=== PATIENT | male | born 1945 | race Caucasian/White ===

== ENCOUNTER 2019-11-08 15:44 | Observation (INO) | payer MEDICARE, BC ==
[~2019-11-08] VITALS: Ht 185.4 cm; Wt 116.1 kg
[~2019-11-08 15:44] MED LIST: BUPROPION XL150 MG PO; CLOBETASOL PROP15 GM TOP; ESCITALOPRAM OX20 MG PO; GABAPENTIN300 MG PO; LEVOTHYROXINE175 MCG PO; LISINOPRIL10 MG PO; PRIMIDONE50 MG PO; TAMSULOSIN HCL0.4 MG PO; THEOPHYLLINE400 MG PO; VITAMIN D21250 MCG PO
--- OUTSIDE RECORDS SUMMARY | 2019-11-08 15:46 | XMS ---
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 Latisha VISIT COUNT (12 MO.) Pop Thibodeaux TOTAL 1 NOTE: Visits indicate total known visits. ED/UCC VISIT TRACKING (12 MO.) 11/08/2019 15:44 JOEY Valentin TYPE: Emergency COMPLAINT: - SOB INPATIENT VISIT TRACKING (12 MO.) 09/05/2019 09:03 [place] [facility] TYPE: Surgical Services DIAGNOSES: - Presence of unspecified artificial hip joint - Unilateral primary osteoarthritis, right hip [id number]
[2019-11-08] MEDS ORDERED: CYCLOBENZAPRINE10 MG PO (16:24)
[2019-11-08] MEDS ORDERED: THEOPHYLLINE400 MG PO (16:29)
[2019-11-08] MEDS ORDERED: BUPRENORPHINE HC8 MG SL (16:31)
[2019-11-08] MEDS ORDERED: L-CARNITINE500 M1 PO (16:31)
--- NOTE | 2019-11-08 17:13 | EKG ---
[facility] [address] [facility] [place] [address] Signed Sinus bradycardia with 1st degree AV block Right bundle branch block Left anterior fascicular block Bifascicular block Abnormal ECG No previous ECGs available Confirmed by JIMMY ANNE MD ([id number]) on 11/08/2019 5:13:12 PM Electronically Signed By: JIMMY ANNE MD 11/08/19 1713 PATIENT NAME: DEVIN FISCHER Electrocardiogram DATE OF : 49 PHYSICIAN: JIMMY ANNE MD REPORT #: [id number] REPORT IS CONFIDENTIAL AND NOT TO BE RELEASED WITHOUT AUTHORIZATION
[2019-11-09] MEDS ORDERED: FERREX 150150 MG PO (11:16)
[2019-11-09] MEDS ORDERED: POTASSIUM CHLO10 ME1 PO (11:20)
[2019-11-09] MEDS ORDERED: FUROSEMIDE20 MG PO (11:22)
[2019-11-09] MEDS ORDERED: LEVOTHYROXINE200 MCG PO (11:23)
[2019-11-09] MEDS ORDERED: PRIMIDONE50 MG PO (11:52)
[2019-11-09] MEDS ORDERED: FINASTERIDE5 MG PO (11:53)
[2019-11-09] MEDS ORDERED: XARELTO15 MG PO (12:06)
[2019-11-09] MEDS ORDERED: XARELTO20 MG PO (12:08)
== END 2019-11-09 12:45 | disposition home or self-care (01) ==
LOC: ED 15:44 → MS 15:45
PROVIDERS: ADMIT Internal Medicine
DX: I26.99 Other pulmonary embolism without acute cor pulmonale (principal); R91.8 Other nonspecific abnormal finding of lung field; I10 Essential (primary) hypertension; N40.0 Benign prostatic hyperplasia without lower urinary tract symptoms; G47.33 Obstructive sleep apnea (adult) (pediatric); E03.9 Hypothyroidism, unspecified; F32.9 Major depressive disorder, single episode, unspecified; G25.0 Essential tremor; Z79.899 Other long term (current) drug therapy
CPT/HCPCS: 71045; 71260; 80053; 83880; 84484; 85025; 85379; 93005; 93010; 94762; 96372; 99285-25; G0378; J1650; Q9967

== ENCOUNTER 2020-06-17 15:30 | Emergency (ER) | payer MEDICARE, BC ==
[~2020-06-17] VITALS: Ht 185.4 cm; Wt 124.7 kg
--- OUTSIDE RECORDS SUMMARY | ~2020-06-17 | XMS | Encounter Summary ---
Demographics + + + | Address | [address] | | | [place] [address] | + + + | Home Phone | | + + + | Preferred Language | Unknown | + + + | Marital Status | | + + + | Islam Affiliation | 1013 | + + + | Race | White | + + + | Ethnic Group | Not or | + + + Author + + + | Author | [facility] | | | and [place] | + + + | Organization | [facility] | | | and [place] | + + + | Address | Unknown | + + + | Phone | Unavailable | + + + Support + + + + + | Name | Relationship | Address | Phone | + + + + + | Aby Fleming | ECON | [address] | | | | | [place] | | | | | [address] | | + + + + + | Mason Fleming | ECON | Unknown | | + + + + + Care Team Providers + +------+ + | Care Chaser Helper Name | Role | Phone | + +------+ + | Michael Grijalva | PCP | | | MD | | | + +------+ + Reason for Referral Diagnostic/Screening (Routine) +--------+--------+ + + + + | Status | Reason | Specialty | Diagnoses / | Referred By | Referred To | | | | | Procedures | Contact | Contact | +--------+--------+ + + + + | Closed | | Radiology | Diagnoses | | [facility] | | | | | Ischial | [place], | [address] | | | | | bursitis of | Peter T, MD | [place], | | | | | right side | [address] | [place] | | | | | Ischial | [place] | [address] | | | | | bursitis of | [place], [place] | Phone: | | | | | left side | [address] | [phone] | | | | | Procedures | Phone: | Fax: | | | | | [place] Asp | [phone] | [phone] | | | | | and/or Inj | Fax: | | | | | | Major Joint | [phone] | | | | | | Left | | | +--------+--------+ + + + + Reason for Visit + + + | Reason | Comments | + + + | Buttocks Pain | Left greater than right | + + + Encounter Details +--------+---------+ + + + | Date | Type | Department | Care Team | Description | +--------+---------+ + + + | 11/09/ | Office | [facility] | Peter Haney | Ischial bursitis of | | 2017 | Visit | PHYSIATRY [address] | T, MD [address] | left side (Primary | | | | [address] | [place] | Dx); Ischial | | | | [place] | [address] | bursitis of right | | | | [address] | | side; Lumbar | | | | [phone] | | radiculopathy; S/P | | | | | | lumbar fusion; | | | | | | Chronic bilateral | | | | | | low back pain with | | | | | | bilateral sciatica | +--------+---------+ + + + Social History + +-------+ +--------+ + | Tobacco Use | Types | Packs/Day | Years | Date | | | | | Used | | + +-------+ +--------+ + | Former Smoker | | 1 | 16 | Quit: 08/30/1980 | + +-------+ +--------+ + + +---+---+---+ | Smokeless Tobacco: | | | | | Never Used | | | | + +---+---+---+ + + +---------+ + | Alcohol Use | Drinks/Week | oz/Week | Comments | + + +---------+ + | Yes | 0 Standard drinks | 0.0 | Rarely/Socially | | | or equivalent | | | + + +---------+ + + + + | Sex Assigned at | Date Recorded | | | | + + + | Not on file | | + + + documented as of this encounter Last Filed Vital Signs + + + + + | Vital Sign | Reading | Time Taken | Comments | + + + + + | Blood Pressure | 121/52 | 11/09/2017 10:28 AM | | | | | PDT | | + + + + + | Pulse | 63 | 11/09/2017 10:28 AM | | | | | PDT | | + + + + + | Temperature | - | - | | + + + + + | Respiratory Rate | 20 | 11/09/2017 10:28 AM | | | | | PDT | | + + + + + | Oxygen Saturation | - | - | | + + + + + | Inhaled Oxygen | - | - | | | Concentration | | | | + + + + + | Weight | 119.7 kg (264 lb) | 11/09/2017 10:28 AM | | | | | PDT | | + + + + + | Height | 181.6 cm (5' 11.5") | 11/09/2017 10:28 AM | | | | | PDT | | + + + + + | Body Mass Index | 36.31 | 11/09/2017 10:28 AM | | | | | PDT | | + + + + + documented in this encounter Patient Instructions Patient Instructions Becki Corado RN - 11/09/2017 10:00 AM Jean Carlos attend the inject ion appointment with Peter Haney MD. If his office has not contacted you within one we ek, to schedule the injection, please contact my clinic. Your injection will be performed a [facility]. Please take note of whether your pain is s ignificantly reduced in the hours immediately following the injection. Follow-up at the hospital thirty minutes before your scheduled procedure to allow for time to check in. You may eat and drink as usual on the day of the procedure. If you are scheduled for an epidural injection do not take any blood thinning medications f or at least 5-7 days prior to your procedure unless you have been instructed by another phys ician not to discontinue blood thinning medications. If you are having a procedure other than an epidural injection (i.e. facet injection, media l branch block, SI joint injection or other joint injection) it is not absolutely necessary to discontinue blood thinning medications but doing so will decrease the risk of bruising or bleeding. If you have had a prior stroke, DVT or PE or if you are taking blood thinning medication be cause you have atrial fibrillation, a prosthetic cardiac valve replacement or heart stenting do not stop taking your blood thinning medications unless you have permission from your car diologist or primary care provider. All other medications should be taken as usual on the day of the procedure. Common blood thinning medications include: Aspirin (a baby aspirin is o.k.) Ibuprofen (Advil or Motrin) Naproxen (Aleve) Nabumetone (Relafen) Clopidogrel (Plavix) Dipyridamole/ASA (Aggrenox) Warfarin (Coumadin) Dabigatran (Pradaxa) Rivaroxaban (Xarelto) There are many others. If you have questions about your medications and whether or not you should stop any medications please contact our office. If you are having an epidural injection or if you take any medication for relaxation/sedati on on the day of the procedure you must provide a pile driver operator to take you home. For all procedur es it is recommended that someone else drive you home. documented in this encounter Progress Notes Peter Haney MD - 11/09/2017 10:00 AM PDT CHIEF COMPLAINT: Chief Complaint Patient presents with Buttocks Pain Left greater than right HISTORY OF PRESENT ILLNESS: Piter Fleming is a 72 y.o. male being seen today in follow-up for complaints of low b ack pain. At the time of his SI joint injection (10/06/17) we discussed his pain and it brooks nded as though the pain was consistent with ischial tuberosity bursitis. He has done some r eading on the topic and he is convinced that is what he is dealing with. He does report th at the majority of his pian is in the region of the "sitting bones" with prolonged sitting, left greater than right. He has been seen for other back pain issues in the past. He has a chronic history of back issues that eventually resulted in a lumbar fusion. Previously he was seen by my PA and sac roiliac joint injections were recommended. The bilateral sacroiliac joint steroid injections were completed 10/06/17 for the treatment of chronic pain with sacroiliitis. He indicates t hat the treatment was 80% effective for pain in that region. Today, Mr. Fleming rates his pain as 3 on a scale of 0-10. He indicates that the pain is de pendent on sitting and movement. He describes the pain as an aching pain. His symptoms wors en with prolonged sitting. His symptoms improve with change of position. The patient does describe numbness of the bilateral anterior thighs and feet. He does rep ort weakness of the bilateral lower extremities, worse to the right leg (he indicates right drop foot). He reports weakness is a chronic symptoms, post neurosurgical intervention. He does not have bowel and bladder dysfunction. He does not have saddle anesthesia. Treatments for these complaints have included physical therapy and medication including hyd rocodone/apap. Patient's medications, allergies, past medical, surgical, social and family histories were reviewed and updated as appropriate. CURRENT MEDICATIONS: Current Outpatient Prescriptions Medication Sig Dispense Refill BETAMETHASONE Take by mouth as needed. DHEA 50 MG TABS Take 100 mg by mouth. Ephedrine-Guaifenesin (PRIMATENE ASTHMA) 12.5-200 MG TABS 2 to 3 tablets daily ergocalciferol (VITAMIN D-2) 50,000 units capsule Take 50,000 Units by mouth Once a wee k. escitalopram (LEXAPRO) 20 mg tablet Take 20 mg by mouth Daily. finasteride (PROSCAR) 5 mg tablet Take 5 mg by mouth Daily. fluocinonide (LIDEX) 0.05 % ointment two times a day furosemide (LASIX) 20 mg tablet gabapentin (NEURONTIN) 300 mg capsule TAKE 2 TABLETS BY MOUTH NIGHTLY FOR NEUROPATHIC P AIN 180 capsule 4 HYDROcodone-acetaminophen (NORCO) 10-325 mg per tablet Take 1-2 tablets by mouth every 4 hours as needed for Pain. 120 tablet 0 iron polysaccharides (NU-IRON) 150 MG capsule Take 150 mg by mouth Daily. LevOCARNitine L-Tartrate (L-CARNITINE) 500 MG CAPS Take 500 mg by mouth Daily. levothyroxine (LEVOTHROID) 200 mcg tablet Take 175 mcg by mouth Daily. lisinopril (PRINIVIL, ZESTRIL) 10 mg tablet Take 10 mg by mouth Daily. multivitamin (THERAGRAN) per tablet Take 1 tablet by mouth daily potassium chloride (KLOR-CON) 10 mEq CR tablet primidone (MYSOLINE) 50 mg tablet Take 4 by mouth daily at bedtime for 5 days then incr ease to 5 by mouth daily at bedtime for tremors tamsulosin (FLOMAX) 0.4 mg CAPS Take 0.4 mg by mouth Daily. theophylline (UNIPHYL) 400 MG 24 hr tablet UNABLE TO FIND Med Name: 8-20cm vitamin B-12 (CYANOCOBALAMIN) 1000 MCG tablet Take 1,000 mcg by mouth Daily. No current facility-administered medications for this visit. ALLERGIES: Allergies Allergen Reactions Nsaids Other (See Comments) Unable to take due to Gastric Bypass Surgery Latex Rash Elastic in his sock's cause a rash Oxycodone Rash REVIEW OF SYSTEMS: GENERALLY: No fever, chills, weight changes. EYES: No vision changes. EARS, NOSE, AND THROAT: No hearing loss or tinnitis,no difficulty swallowing, no hoarseness . NEUROMUSCULAR: Please see the review of systems discussed above in the history of present illness. In addition, the patient has no dizziness, no blackouts, no headaches. CARDIOVASCULAR: No chest pain, no palpitations PULMONARY: No shortness of breath, + cough. GASTROINTESTINAL: No nausea, vomiting or diarrhea GENITOURINARY: No dysuria or hematuria SKIN: No rashes. HEMATOLOGIC/LYMPHATIC: No abnormal bleeding PHYSICAL EXAMINATION: Vitals: 11/09/17 1028 BP: 121/52 Pulse: 63 Resp: 20 PainSc: 3 Body mass index is 36.31 kg/m. GENERAL: The patient is well developed and well nourished. He does not appear uncomfortabl e when seated. HEENT: HEAD/FACE: EYES: Normocephalic and atraumatic. There are no areas of recent trauma. Normal sclerae without icterus. SKIN Limited skin exam shows no significant rashes or lesions. CHEST: The patient is in no acute respiratory distress with unlabored respirations. HEART: Moderately severe pitting edema to bilateral lower extremities. ABDOMEN: The patient is obese. NEUROLOGIC: The patient is awake, alert, and oriented to time, place, person. He follows simple and complex commands. His speech is fluent. He comprehends speech well. He has no apparent deficits with short or intermediate memory. He has appropriate fund of knowledge Cranial nerves 2-12 appear grossly intact. Sensory exam - Mildly decreased sensation to light touch to bilateral lower extremities. De creased strength noted in right L5 dermatome distribution. MOTOR EXAM: (5 IS NORMAL) * Indicates pain limited MUSCLE/ MOVEMENT: RIGHT LEFT Hip Flexion 5 5 Hip Extension 5 5 Knee Flexion 5 5 Knee Extension 5 5 Extensor Hallicus Longus 5 5 Ankle Dorsiflexion 2 5 Plantarflexion 5 5 REFLEX: RIGHT LEFT PATELLAR Absent Absent ACHILLES Absent Absent MUSCULOSKELETAL Decreased ROM to bilateral hips with internal and external rotation but wi th no discomfort noted to the spine groin or buttocks. Weakness noted with heel walking; can not keep toes up on the right with heel walking. Weakness with toe walking noted to right; unable to keep heel off the floor. Able to bend forwards approximately 75 degrees Tenderness to right sacral sulcus. Localizes maximum pain and tenderness to the ischial tuberosity bilaterally, greater to lef t compared to the right. ASSESSMENT: 1. Ischial bursitis of left side 2. Ischial bursitis of right side 3. Lumbar radiculopathy 4. S/P lumbar fusion 5. Chronic bilateral low back pain with bilateral sciatica PLAN: 1. Today Piter Fleming presents with bilateral Ischial tuberosity bursitis. He indic ated having discomfort with sitting, he reports his left side accounts for approximately 60% of his pain. He reports having pain radiating to the posterior legs to the mid hamstring re gion but no lower. Piter Fleming returns to the clinic for evaluation prior to possibl e ischial tuberosity bursa injection procedure today. I did feel that would be appropriate and that will be scheduled. 2. It was noted that he has bilateral hamstring tightness; we dicussed that this may be a contributing factor to his development of bilateral Ischial tuberosity bursitis. I encourag ed a home stretching regimen. 3. Today we dicussed that there is a limit of how many steroid injections an individual ma y receive safely per year. We dicussed the potential for the development of osteoporosis wit h frequent steroid use. We dicussed potential risks including elevated blood sugars and oste oporosis. We dicussed the possible concern of he development of avascular necrosis of the hi ps associated with steroid use. We dicussed that this is very rare but is still a potential risk. Overall Mr. Fleming is considered at low risk for development of these potential side effects, but we will plan to make an effort to reduce yearly steroid injection to the least possible. 4. Today we dicussed other conservative interventions that he may implement in an effort to reduce the development of Ischial tuberosity bursitis. This includes seating posture and u se of cushions. 5. He continues to have chronic weakness, worse to the right lower extremity. He indicates this has been chronic but not progressive since neurosurgical intervention. His other issue s including the prior lumbar fusion and low back pain were not addressed in detail today. I, Dr. Peter Haney, personally performed the services described in this documentatio n, as scribed by Becki Corado RN in my presence, and it is both accurate and complete. ELECTRONICALLY EDITED AND SIGNED BY: Peter Haney MD documented in this encounter Plan of Treatment Not on filedocumented as of this encounter Results [place] Asp and/or Inj Major Joint Left (11/09/2017 12:47 PM PDT) + + | Specimen | + + | | + + + + + | Narrative | Performed At | + + + | 11/09/2017 | [facility] | | Ischial Tuberosity Bursa Injection Diagnosis: Ischial Tuberosity | | | Bursitis Piter Fleming presents to the fluoroscopy suite for | | | fluoroscopically guided bilateral ischial tuberosity bursa steroid | | | injections as part of conservative management for chronic pain and | | | ischial tuberosity bursitis. After informed consent was obtained the | | | patient laid in the prone position on the fluoroscopy table. The | | | ischial tuberosity on the left was identified under fluoroscopic | | | guidance. The area was prepped and draped in sterile fashion. A 25 | | | gauge 1-1/2 inch needle was inserted into this region and | | | approximately 3 mL of buffered 1% lidocaine was infused. The needle | | | was then inserted down to the ischial tuberosity bursa under | | | fluoroscopic guidance. Confirmation into the appropriate location was | | | obtained with infusion of approximately 1 mL of Omnipaque contrast | | | which showed flow within the bursa. Then a combination of 1 mL 1% | | | lidocaine and 1 mL of 40 mg per milliliter Kenalog was infused. The | | | entire procedure was then repeated on the right. The patient | | | tolerated the procedures well without complications. Pre- and post | | | procedure blood pressures were stable. The patient was given verbal as | | | well as written followup instructions. Prior to the start of the | | | procedure the following were performed and verified including correct | | | patient identity, correct site/side marked and visible, agreement on | | | the procedure to be done, correct patient positioning and an accurate | | | procedure consent form. Any safety precautions based on clinical | | | history and/or medication use have been addressed. I personally | | | performed the procedure above. Estimated blood loss: | | | MinimalComplications: NoneFindings: As expectedAnesthesia: Local 1% | | | Lidocaine | | |based on clinical history and/or medication use have been addressed. | | | | | |I personally performed the procedure above. | | | | | |Estimated blood loss: Minimal | | |Complications: None | | |Findings: As expected | | |Anesthesia: Local 1% Lidocaine | | | | | + + + + +---------+ + + | Performing | Address | City/State/Zipcode | Phone Number | | Organization | | | | + +---------+ + + | [facility] | | | | + +---------+ + + documented in this encounter Visit Diagnoses + + | Diagnosis | + + | Ischial bursitis of left side - Primary | + + | Ischial bursitis of right side | + + | Lumbar radiculopathy Thoracic or lumbosacral neuritis or radiculitis, unspecified | + + | S/P lumbar fusion Arthrodesis status | + + | Chronic bilateral low back pain with bilateral sciatica | + + documented in this encounter
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
--- OUTSIDE RECORDS SUMMARY | ~2020-06-17 | XMS | Encounter Summary ---
Demographics + + + | Address | [address] | | | [place] [address] | + + + | Home Phone | | + + + | Preferred Language | Unknown | + + + | Marital Status | | + + + | Pentecostalism Affiliation | 1013 | + + + | Race | White | + + + | Ethnic Group | Not or | + + + Author + + + | Author | [facility] | | | and [place] | + + + | Organization | [facility] | | | and [place] | + + + | Address | Unknown | + + + | Phone | Unavailable | + + + Support + + + + + | Name | Relationship | Address | Phone | + + + + + | Aby Fleming | ECON | [address] | | | | | [place] | | | | | [address] | | + + + + + | Mason Fleming | ECON | Unknown | | + + + + + Care Team Providers + +------+ + | Care Medical Assistant Name | Role | Phone | + +------+ + | Michael Grijalva | PCP | | | MD | | | + +------+ + Reason for Visit Service/Procedure (Routine) +--------+--------+ + + + + | Status | Reason | Specialty | Diagnoses / | Referred By | Referred To | | | | | Procedures | Contact | Contact | +--------+--------+ + + + + | Closed | | Radiology | Diagnoses | | [facility] | | | | | Thoracic or | [place], | [address] | | | | | lumbosacral | Peter Cunha MD | [place], | | | | | neuritis or | [address] | [place] | | | | | | [place] | [address] | | | | | radiculitis, | [place], [place] | Phone: | | | | | unspecified | [phone] | [phone] | | | | | Procedures | Phone: | Fax: | | | | | DC INJECT | [phone] | [phone] | | | | | ANES/STEROID | Fax: | | | | | | FORAMEN | [phone] | | | | | | LUMBAR/SACRA | | | | | | | L W IMG | | | | | | | GUIDE ,1 | | | | | | | LEVEL DC | | | | | | | TRIAMCINOLON | | | | | | | E ACET INJ | | | | | | | NOS, 10 MG | | | | | | | Bilateral | | | | | | | L3-L4 | | | | | | | TFESI-APPT | | | | | | | 1/27 | | | +--------+--------+ + + + + Encounter Details +--------+ + + + + | Date | Type | Department | Care Team | Description | +--------+ + + + + | 10/02/ | Hospital | [facility] | Lyn, | Bilateral lumbar | | 2014 | Encounter | [facility]RAY [address] | MICHELLE Masterson [address] | radiculopathy; | | | | [address] [place] | [facility] [address] | Spinal stenosis of | | | | [place] [address] | [place] [address] | lumbar - worst at | | | | [phone] | [phone] | the L2-L3 and L3-L4 | | | | | | levels. This would | | | | | [place], [place] | be classified as | | | | | [place] | severe.; | | | | | | Degenerative disc | | | | | | disease lumbar spine | | | | | | - he has | | | | | | degenerative changes | | | | | | at every level from | | | | | | L2 to S1.; | | | | | | Scoliosis | +--------+ + + + + Social History + +-------+ [...] + + +---------+ + | Yes | | | Rarely/Socially | + + +---------+ + + + + | Sex Assigned at | Date Recorded | | | | + + + | Not on file | | + + + documented as of this encounter Last Filed Vital Signs + +---------+ + + | Vital Sign | Reading | Time Taken | Comments | + +---------+ + + | Blood Pressure | 154/73 | 10/02/2014 1:11 PM | | | | | PST | | + +---------+ + + | Pulse | 43 | 10/02/2014 1:11 PM | | | | | PST | | + +---------+ + + | Temperature | - | - | | + +---------+ + + | Respiratory Rate | - | - | | + +---------+ + + | Oxygen Saturation | - | - | | + +---------+ + + | Inhaled Oxygen | - | - | | | Concentration | | | | + +---------+ + + | Weight | - | - | | + +---------+ + + | Height | - | - | | + +---------+ + + | Body Mass Index | - | - | | + +---------+ + + documented in this encounter Medications at Time of Discharge + + + +---------+ + + | Medication | Sig | Dispensed | Refills | Start | End Date | | | | | | Date | | + + + +---------+ + + | finasteride | Take 5 mg by mouth | | 0 | | | | (PROSCAR) 5 mg | Daily. | | | | | | tablet | | | | | | + + + +---------+ + + | fluocinonide | two times a day | | 0 | 05/13/20 | | | (LIDEX) 0.05 % | | | | 12 | | | ointment | | | | | | + + + +---------+ + + | iron | Take 150 mg by mouth | | 0 | 05/13/20 | | | polysaccharides | Daily. | | | 12 | | | (NU-IRON) 150 MG | | | | | | | capsule | | | | | | + + + +---------+ + + | multivitamin | Take 1 tablet by | | 0 | 05/13/20 | | | (THERAGRAN) per | mouth daily | | | 12 | | | tablet | | | | | | + + + +---------+ + + | primidone | Take 4 by mouth | | 0 | 09/24/19 | | | (MYSOLINE) 50 mg | daily at bedtime for | | | 11 | | | tablet | 5 days then | | | | | | | increase to 5 by | | | | | | | mouth daily at | | | | | | | bedtime for tremors | | | | | + + + +---------+ + + | tamsulosin | Take 0.4 mg by mouth | | 0 | 05/13/20 | | | (FLOMAX) 0.4 mg CAPS | Daily. | | | 12 | | + + + +---------+ + + | vitamin B-12 | Take 1,000 mcg by | | 0 | 05/13/20 | | | (CYANOCOBALAMIN) | mouth Daily. | | | 12 | | | 1000 MCG tablet | | | | | | + + + +---------+ + + | acetaminophen | Take 500 mg by mouth | | 0 | | | | (TYLENOL) 500 mg | nightly. | | | | 6 | | tablet | | | | | | + + + +---------+ + + | BETAMETHASONE | Take by mouth as | | 0 | | | | | needed. | | | | 8 | + + + +---------+ + + | Calcium | TABS; Take 1 tablet | | 0 | 06/25/20 | | | Carbonate-Vitamin D | by mouth twice daily | | | 10 | 5 | | (CALTRATE 600+D PO) | | | | | | + + + +---------+ + + | Cholecalciferol | 50,000 Units Once a | | 0 | 05/13/20 | | | (D3-50) 59084 UNITS | week. | | | 12 | 5 | | CAPS | | | | | | + + + +---------+ + + | citalopram | Take 40 mg by mouth | | 0 | 05/13/20 | | | (CELEXA) 40 mg | Daily. | | | 12 | 6 | | tablet | | | | | | + + + +---------+ + + | | 2 to 3 tablets daily | | 0 | 05/13/20 | | | Ephedrine-Guaifenesi | | | | 12 | 8 | | n (PRIMATENE ASTHMA) | | | | | | | 12.5-200 MG TABS | | | | | | + + + +---------+ + + | gabapentin | Take 2 tablets by | 60 | 2 | 06/25/20 | | | (NEURONTIN) 300 mg | mouth at night for | capsule | | 14 | 5 | | capsuleIndications: | neuropathic pain, | | | | | | Neuropathic pain | lumbar | | | | | | | radiculopathy,and | | | | | | | back pain. | | | | | + + + +---------+ + + | Glucosamine HCl | | | 0 | 05/13/20 | | | (GLUCOSAMINE MAXIMUM | | | | 12 | 5 | | STRENGTH) 1500 MG | | | | | | | TABS | | | | | | + + + +---------+ + + | | as needed | | 0 | 05/13/20 | | | HYDROcodone-acetamin | | | | 12 | 5 | | ophen (NORCO) 10-325 | | | | | | | mg per tablet | | | | | | + + + +---------+ + + | LevOCARNitine | Take 500 mg by mouth | | 0 | 05/13/20 | | | L-Tartrate | Daily. | | | 12 | 0 | | (L-CARNITINE) 500 MG | | | | | | | CAPS | | | | | | + + + +---------+ + + | levothyroxine | Take 175 mcg by | | 0 | 05/13/20 | | | (LEVOTHROID) 200 mcg | mouth Daily. | | | 12 | 0 | | tablet | | | | | | + + + +---------+ + + | liothyronine | two daily | | 0 | 05/13/20 | | | (CYTOMEL) 50 MCG | | | | 12 | 5 | | tablet | | | | | | + + + +---------+ + + | Nutritional | Take 100 mg by mouth | | 0 | | | | Supplements (DHEA | 2 times daily. | | | | 5 | | PO) | | | | | | + + + +---------+ + + | propranolol | Take 40 mg by mouth | | 0 | 09/11/19 | | | (INDERAL) 40 mg | Daily. | | | 11 | 6 | | tablet | | | | | | + + + +---------+ + + | sildenafil | Take 100 mg by mouth | | 0 | 05/13/20 | | | (VIAGRA) 100 MG | nightly as needed. | | | 12 | 5 | | tablet | | | | | | + + + +---------+ + + | theophylline | Take 400 mg by mouth | | 0 | 05/13/20 | | | (UNIPHYL) 400 MG 24 | Daily. | | | 12 | 5 | | hr tablet | | | | | | + + + +---------+ + + | topiramate | 1/2 tablet at at | | 0 | 09/11/19 | | | (TOPAMAX) 25 mg | bedtime for 3 | | | 11 | 5 | | tablet | nights, then build | | | | | | | up per 's written | | | | | | | schedule to 2 | | | | | | | tablets at bedtime | | | | | | | for tremor | | | | | + + + +---------+ + + documented as of this encounter Plan of Treatment Not on filedocumented as of this encounter Procedures + +--------+ + + + | Procedure Name | Priori | Date/Time | Associated Diagnosis | Comments | | | ty | | | | + +--------+ + + + | FL EPIDURAL STEROID | Routin | 10/02/2014 | Bilateral lumbar | Results for this | | INJECTION LUMBAR | e | 1:47 PM | radiculopathy | procedure are in the | | TRANSFORAMINAL | | PST | Spinal stenosis of | results section. | | | | | lumbar - worst at | | | | | | the L2-L3 and L3-L4 | | | | | | levels. This would | | | | | | be classified as | | | | | | severe. | | | | | | Degenerative disc | | | | | | disease lumbar spine | | | | | | - he has | | | | | | degenerative changes | | | | | | at every level from | | | | | | L2 to S1. | | | | | | Scoliosis | | + +--------+ + + + documented in this encounter Results FL SHIRLEY Lumbar Transforaminal (10/02/2014 1:47 PM PST) + + | Specimen | + + | | + + + + + | Narrative | Performed At | + + + | 10/02/2014 Bilateral Transforaminal Epidural Steroid Injections | [facility] | | Diagnosis: Lumbar radiculopathy ICD-9 Code 724.4 [address] | [facility] | | Lonnie presents to the fluoroscopy suite for fluoroscopically-guided [facility] | | bilateral L3-L4 transforaminal epidural steroid injections as part | - IMAGING | | of conservative management for chronic pain with lumbar | | | radiculopathy and degenerative disk disease. After informed consent | | | was obtained, the patient lay in the prone position on the | | | fluoroscopy table. The areas were identified under fluoroscopic | | | guidance. The areas were prepped and draped in sterile fashion. A | | | 25-gauge, 1.5-inch needle was inserted into each region and | | | approximately 3 mL of buffered 1% lidocaine was infused. Then, a | | | 22-gauge spinal needle was inserted into the posterior superior | | | transforaminal space bilaterally and advanced into the epidural | | | space under fluoroscopic guidance. Confirmation into the epidural | | | space was obtained with infusion of approximately 1 mL of Omnipaque | | | contrast which showed epidural flow as well as nerve sheath flow. | | | Then, a combination of 2 mL of 1% lidocaine and 2 mL of 6 mg/mL | | | Celestone was infused, divided between the two sides. The patient | | | tolerated the procedure well without complications. Pre- and | | | post-procedure blood pressures were stable. The patient was given | | | verbal as well as written follow-up instructions. Prior to the | | | start of the procedure, the following were performed and/or | | | verified, including correct patient identity, correct site/side marked | | | and visible, agreement on the procedure to be done, correct patient | | | positioning and an accurate procedure consent form. Any safety | | | precautions based on clinical history and/or medication use have | | | been addressed. I personally performed the procedure above. | | | Estimated blood loss: Minimal Complications: None Findings: As | | | expected Anesthesia: Local 1% Lidocaine | | + + + + + | Procedure Note | + + | Peter Haney MD - 10/02/2014 4:39 PM PST 10/02/2014Bilateral Transforaminal | | Epidural Steroid InjectionsDiagnosis: Lumbar radiculopathyICD-9 Code 724.4Gerald Damir | | Lonnie presents to the fluoroscopy suite for fluoroscopically-guided bilateral L3-L4 | | transforaminal epidural steroid injections as part of conservative management for | | chronic pain with lumbar radiculopathy and degenerative disk disease. After informed | | consent was obtained, the patient lay in the prone position on the fluoroscopy table. | | The areas were identified under fluoroscopic guidance. The areas were prepped and draped | | in sterile fashion. A 25-gauge, 1.5-inch needle was inserted into each region and | | approximately 3 mL of buffered 1% lidocaine was infused. Then, a 22-gauge spinal needle | | was inserted into the posterior superior transforaminal space bilaterally and advanced | | into the epidural space under fluoroscopic guidance. Confirmation into the epidural | | space was obtained with infusion of approximately 1 mL of Omnipaque contrast which | | showed epidural flow as well as nerve sheath flow. Then, a combination of 2 mL of 1% | | lidocaine and 2 mL of 6 mg/mL Celestone was infused, divided between the two sides. The | | patient tolerated the procedure well without complications. Pre- and post-procedure | | blood pressures were stable. The patient was given verbal as well as written follow-up | | instructions. Prior to the start of the procedure, the following were performed and/or | | verified, including correct patient identity, correct site/side marked and visible, | | agreement on the procedure to be done, correct patient positioning and an accurate | | procedure consent form. Any safety precautions based on clinical history and/or | | medication use have been addressed. I personally performed the procedure above.Estimated | | blood loss: MinimalComplications: NoneFindings: As expectedAnesthesia: Local 1% | | Lidocaine | + + + + + + + | Performing | Address | City/State/Zipcode | Phone Number | | Organization | | | | + + + + + | [facility] | [address] | [place], [place] | [phone] | | [facility] | | [address] | | | - IMAGING | | | | + + + + + documented in this encounter Visit Diagnoses + + | Diagnosis | + + | Bilateral lumbar radiculopathy | + + | Spinal stenosis of lumbar - worst at the L2-L3 and L3-L4 levels. This would be | | classified as severe. Spinal stenosis, lumbar region, without neurogenic claudication | + + | Degenerative disc disease lumbar spine - he has degenerative changes at every level | | from L2 to S1. Degeneration of lumbar or lumbosacral intervertebral disc | + + | Scoliosis Scoliosis (and kyphoscoliosis), idiopathic | + + documented in this encounter Administered Medications + +--------+ +------+------+------+ | Medication Order | MAR | Action | Dose | Rate | Site | | | Action | Date | | | | + +--------+ +------+------+------+ | betamethasone (CELESTONE | Given | 10/02/19 | 9 mg | | | | SOLUSPAN) injection 9 mg 9 mg, | | 15 1:48 | | | | | Other, EVERY 24 HOURS INTERVAL, | | PM PST | | | | | First dose on Wed10/02/14 at 1400, | | | | | | | For 2 doses, Shake well. Not for | | | | | | | IV use., Radiology | | | | | | + +--------+ +------+------+------+ +---+---+ | | | +---+---+ + +-------+ +-------+---+---+ | iohexol (OMNIPAQUE 300) 300 | Given | 10/02/19 | 2 mLs | | | | mg/mL injection 2 mL 2 mL, | | 15 1:40 | | | | | Other, ONCE PRN, Other, Starting | | PM PST | | | | | 10/02/14 at 1334, For 1 dose, | | | | | | | Radiology | | | | | | + +-------+ +-------+---+---+ +---+---+ | | | +---+---+ + +-------+ +-------+---+ + | lidocaine 1% injection 5 mL 5 | Given | 10/02/19 | 5 mLs | | Other | | mL, Intradermal, ONCE, 10/02/14 | | 15 1:35 | | | (Comment | | at 1400, For 1 dose, Radiology | | PM PST | | | ) | + +-------+ +-------+---+ + +---+---+ | | | +---+---+ documented in this encounter"
--- OUTSIDE RECORDS SUMMARY | ~2020-06-17 | XMS | Encounter Summary ---
Demographics + + + | Address | [address] | | | [place] [address] | + + + | Home Phone | | + + + | Preferred Language | Unknown | + + + | Marital Status | | + + + | Taoist Affiliation | 1013 | + + + | Race | White | + + + | Ethnic Group | Not or | + + + Author + + + | Author | [facility] | | | and [place] | + + + | Organization | [facility] | | | [...] [place] | | | | | [address] | | + + + + + | Mason Fleming | ECON | Unknown | | + + + + + Care Team Providers + +------+ + | Care Splicing Machine Operator Name | Role | Phone | + +------+ + | Michael Grijalva | PCP | | | MD | | | + +------+ + Reason for Visit + + + | Reason | Comments | + + + | Initial Assessment | | + + + Encounter Details +--------+---------+ + + + | Date | Type | Department | Care Team | Description | +--------+---------+ + + + | 08/03/ | Office | [facility] | Cecil Mosquera, PT | Primary | | 2019 | Visit | ORTHOPEDIC SURGERY | [address] [facility] | 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 | [place] [address]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 (Primary | | | | [place], [place] | [phone] | Dx) | | | | [address] | | | | | | [phone] | | | +--------+---------+ + + + [...] + + documented as of this encounter Progress Notes Cecil Mosquera, PT - 08/03/2019 1:45 PM PST Physical Therapy Plan of Care Date: 08/03/2019 Patient Name: Piter Fleming Date of : 1945 Encounter Diagnoses Code Name Primary? M16.11 Primary osteoarthritis of right hip Yes Date of Onset: 08/03/2019 Start of Care Date: 08/03/2019 Requested # of Visits: 1 visits 1x/week for three months Certification From: 08/03/2019 Certification To: 11/01/2019 Clinical Impression: Patient presents to physical therapy for their prehabilitation total joint replacement evaluation. Piter Fleming is scheduled for a right total hip arthrop lasty on 09/05/2018. The predicted patient discharge disposition is home with home health. Morenita vuongtg has identified his Aby ([phone]) as their support charter coach driver. Patient has complete d the physical therapy specific prehabilitation education and was prescribed an individualiz ed home exercise program. Patient was educated on pain management techniques and how to best prepare their home for recovery. Functional outcome measure TUG with a pre operative score of 14.45sec. Patient reported outcome measure HOOS Jr. with a pre operative score of 46.64%. PROMIS Global - 10 pre operative Physical Health Raw Score: 50% (T-score: 34.9 ), Global - 10 Mental Health Raw Score: 40% (T-score: 33.8 ). Patient's snf goal is to continue exercising at the [facility] fitness facility with his per alex monkey trainer Corinna. Patient agrees with this pre-operative plan for post-operative return to function. Goals: Patient Reported Outcome Goals Patient Reported Outcome Goals: PSFS Patient Specific Functional Scale Goal 1: Patient agrees with home with home health as the predicted post-operative discharge destination. Patient Specific Functional Scale Goal 1 Status: 10 Patient Specific Functional Scale Goal 2: Patient demonstrates independence with their pre- habilitation exercise program. Patient Specific Functional Scale Goal 2 Status: 10 Patient Specific Functional Scale Goal 3: Patient and physical therapist established long t erm goal for post-surgery. Patient Specific Functional Scale Goal 3 Status: 10 Treatment Plan/Interventions PT [id number] - Therapeutic [id number] - Neuromuscular [id number] - Gait T [id number] - Self Care/Home [id number] - Manual [id number] - Therapeutic Activities Electronically signed by: Cecil Mosquera PT, 08/03/2019 3:26 PM Patient Name: Piter Fleming/: 1945/ Cecil Lehman, PT - 1 10/04/2018 1:45 PM PST [facility] ORTHOPEDIC SURGERY [address] [place] [id number] Physical Therapy Prehabilitation Orthopedic Evaluation Date: 08/03/2019 Patient Information Patient Name: Piter Fleming Date of : 1945 Age: 74 y.o. Assessment Patient presents to physical therapy for their prehabilitation total joint replacement eval uation. Piter Fleming is scheduled for a right total hip arthroplasty on 09/05/2018. The predicted patient discharge disposition is home with home health. Patient has identified ky s Aby [phone]) as their support charter coach driver. Patient has completed the physical therapy specific prehabilitation education and was prescribed an individualized home exercise progr am. Patient was educated on pain management techniques and how to best prepare their home fo r recovery. Functional outcome measure TUG with a pre operative score of 14.45sec. Patient reported outcome measure HOOS Jr. with a pre operative score of 46.64%. PROMIS Global - 10 pre operative Physical Health Raw Score: 50% (T-score: 34.9 ), Global - 10 Mental Health Raw Score: 40% (T-score: 33.8 ). Patient's snf goal is to continue exercising at the [facility] fitness facility with his per alex monkey trainer Corinna. Patient agrees with this pre-operative plan for post-operative return to function. History No problems updated. Social History Socioeconomic History Marital status: Spouse name: Not on file Number of children: 2 Years of education: 14+ Highest education level: Not on file Occupational History Comment: Retired Tobacco Use Smoking status: Former Smoker Packs/day: 1.00 Years: 16.00 Pack years: 16.00 Last attempt to quit: 08/30/1980 Years since quittin.9 Smokeless tobacco: Never Used Substance and Sexual Activity Alcohol use: Yes Alcohol/week: 0.0 standard drinks Comment: Rarely/Socially Drug use: No Sexual activity: Yes Comment: Rarely Encounter Diagnoses Code Name Primary? M16.11 Primary osteoarthritis of right hip Yes Date of Onset: 08/03/2019 Referring Provider: Michael Grijalva MD No history on file. Past Medical History: Diagnosis Date Asthma, intrinsic Benign localized hyperplasia of prostate with urinary obstruction Chronic pain syndrome Cystitis, subacute Depression Dermatitis due to drugs and medicines taken internally Dermatitis, eczematoid ERRONEOUS ENCOUNTER--DISREGARD 05/07/2015 Essential hypertension, benign Essential tremor Flank pain Folliculitis Hematuria High cholesterol Hx of gastric bypass Ischial bursitis of left side 02/16/2018 Kidney stones Lumbar stenosis Major depressive disorder, recurrent, in partial remission (HCC) Nephrolithiasis Neuropathy Hands and Feet Nontraumatic rupture of bicep tendon, right Right rupture rotator cuff complete Osteoarthrosis, localized, primary, knee, right Postgastrectomy syndrome Dumping syndrome Primary hypothyroidism Primary osteoarthritis of right hip 02/16/2018 Sciatica Sleep apnea Spinal stenosis, lumbar Thyroid disease Past Surgical History: Procedure Laterality Date APPENDECTOMY 1958 CHOLECYSTECTOMY 06/2006 COLONOSCOPY 06/2011 no polyps GALLBLADDER SURGERY 2006 GASTRIC BYPASS SURGERY morbid obesity LUMBAR SPINE SURGERY Left 08/10/2016 Procedure: L2-3, L3-4, L4-5 Lateral Anterior Interbody Fusion, L5-S1 Transforaminal Lumbar Interbody Fusion, L3-4 Decompression; Surgeon: Joshua Jorge MD; Location: [facility] MAIN OR ROTATOR CUFF REPAIR Right 06/2015 TONSILLECTOMY AND ADENOIDECTOMY 1951 TOTAL KNEE ARTHROPLASTY Bilateral /-2010 WRIST SURGERY 2011 Hardware removal Family History Problem Relation Age of Onset Other (see comment) Father 80 kidney failure High blood pressure Father No known problems Paternal Grandfather No known problems Paternal Grandmother No known problems Maternal Grandfather No known problems Maternal Grandmother Arthritis Other Diabetes Other Gout Other Heart defect Other Developmental History Allergies Allergen Reactions Nsaids Other (See Comments) Unable to take due to Gastric Bypass Surgery Latex Rash Elastic in his sock's cause a rash Pain Assessment: Pain Scale Used: NUMERIC Pain Rating Pre Assessment: 4 Location: right hip Subjective: history of successful bilateral TKA. Living environment: Lives with: spouse / significant other Type of home: house Stairs to enter: 3 stairs to enter and railing on left side. Stairs in home: no stairs. will cover on ground level. Bathroom set up: walk in shower. He was encouraged to install grab bars at the toilet and b ath, he agreed. Available assistance at discharge: Name: Aby, for indefinite Durable medical equipment: Currently uses: none Has access to: front wheeled walker, cane, bath bench and adoption worker Have you fallen in the last year? no Have you recently had physical therapy? no Objective: AROM: right Hip approximately 110 degrees hip flexion, internal rotation 0 degrees open en d feel Gait: right Antalgic with compensated trendelenburg Goals: Patient Reported Outcome Goals Patient Reported Outcome Goals: PSFS Patient Specific Functional Scale Goal 1: Patient agrees with home with home health as the predicted post-operative discharge destination. Patient Specific Functional Scale Goal 1 Status: 10 Patient Specific Functional Scale Goal 2: Patient demonstrates independence with their pre- habilitation exercise program. Patient Specific Functional Scale Goal 2 Status: 10 Patient Specific Functional Scale Goal 3: Patient and physical therapist established long t erm goal for post-surgery. Patient Specific Functional Scale Goal 3 Status: 10 Plan Date of Onset: 08/03/2019 Start of Care Date: 08/03/2019 Requested # of Visits: 1 visits 1x/week for three months Certification From: 08/03/2019 Certification To: 11/01/2019 Treatment Plan/Interventions PT [id number] - Therapeutic [id number] - Neuromuscular [id number] - Gait T [id number] - Self Care/Home [id number] - Manual [id number] - Therapeutic Activities Patient and/or family has indicated understanding of treatment needs and actively participa [place] in the creation of this plan for care. Today's Treatment Start Time: 1345 Stop time: 1425 Duration: 40 minutes Timed Treatment Codes: 15 minutes # of PT Visits: 1 Objective: Patient education: Patient completed the physical therapy specific prehabilitation educatio n. Patient was educated on pain science for post-operative pain management and how to best p repare their home for recovery. Patient was instructed in the below individualized home exer cise program and was able to safely return demonstration for each exercise. Access Code: [email or web address] URL: [email or web address] Date: 08/03/2019 Prepared by: Cecil Mosquera Exercises Recumbent Bike - 10 reps - 2 sets - 1x daily - 4x weekly Walk - 10 reps - 2 sets - 1x daily - 4x weekly Sit to Stand without Arm Support - 10 reps - 2 sets - 1x daily - 4x weekly Mini Squat with Counter Support - 10 reps - 1 sets - 4x daily - 4x weekly Seated Heel Toe Raises - 15 reps - 2 sets - 4x daily - 4x weekly Seated Kicks - 15 reps - 2 sets - 4x daily - 4x weekly Patient Education Walking with a Standard Walker - Weight Bearing as Tolerated Total Hip Replacement Handout Next Visit: d/c Electronically signed by: Cecil Mosquera, PT, 08/03/2019 3:22 PM Patient Name: Piter Fleming/: 1945/ y signed by Cecil Mosquera PT at 08/03/2019 3:29 PM PSTdocumented in this encounter Plan of Treatment Not on filedocumented as of this encounter Visit Diagnoses + + | Diagnosis | + + | Primary osteoarthritis of right hip - Primary Primary localized osteoarthrosis, | | pelvic region and thigh | + + documented in this encounter"
--- OUTSIDE RECORDS SUMMARY | ~2020-06-17 | XMS | Encounter Summary ---
Demographics + + + | Address | [address] | | | [place] [address] | + + + | Home Phone | | + + + | Preferred Language | Unknown | + + + | Marital Status | | + + + | Jainism Affiliation | 1013 | + + + | Race | White | + + + | Ethnic Group | Not or | + + + Author + + + | Author | [facility] | | | and [place] | + + + | Organization | [facility] | | | [...] [place] | | | | | [address] | | + + + + + | Mason Fleming | ECON | Unknown | | + + + + + Care Team Providers + +------+ + | Care Medical Engineer Name | Role | Phone | + +------+ + | Michael Grijalva | PCP | | | MD | | | + +------+ + Encounter Details +--------+ + + + + | Date | Type | Department | Care Team | Description | +--------+ + + + + | 12/20/ | Orders Only | [facility] | Joshua Jorge MD | Lumbar radiculopathy | | 2013 | | NEUROSURGERY [address] | [address] | (Primary Dx); | | | | [address] | [place] [address] | Spinal stenosis of | | | | [place], [place] | [phone] | lumbar - worst at | | | | [phone] | | the L2-L3 and L3-L4 | | | | [phone] | | levels. 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 | | | | | | - he has | | | | | | degenerative changes | | | | | | at every level from | | | | | | L2 to S1.; BACK | | | | | | PAIN, LUMBAR; | | | | | | OSTEOARTHRITIS, | | | | | | LUMBOSACRAL SPINE | +--------+ + + + + Social History + +-------+ +--------+------+ | Tobacco Use | Types | Packs/Day | Years | Date | | | | | Used | | + +-------+ +--------+------+ | Never Smoker | | | | | + +-------+ +--------+------+ + + +---------+ + | Alcohol Use | Drinks/Week | oz/Week | Comments | + + +---------+ + | Not Asked | | | | + + +---------+ + + + + | Sex Assigned at | Date Recorded | | | | + + + | Not on file | | + + + documented as of this encounter Plan of Treatment Not on filedocumented as of this encounter Results XR Spine Survey AP and Lateral (03/09/2014 11:26 AM PDT) + + | Specimen | + + | | + + + + + | Narrative | Performed At | + + + | SCOLIOSIS STUDY: 03/09/2014 11:26 AM CLINICAL HISTORY: BACK PAIN | [facility] | | COMPARISON: None FINDINGS: Multiple AP and lateral spot views | LAB | | of the spine from skull base to pelvis in neutral and lateral flexion | | | positions. Because of software malfunction these are not | | | contiguously merged to a single image. Also with the technique | | | utilized fine bony detail is obscured. This results in limited | | | assessment. A mild dextroscoliosis is present centered on L1. | | | Measured from the inferior endplate of T10 to the superior endplate | | | of L4 this measures approximately 12 degrees. It does not appear to | | | significantly change in right or left lateral flexion. What appears | | | to be a compensatory curve in the thoracic region cannot be assessed | | | because of film alignment. IMPRESSION - Limited, technically | | | unsatisfactory scoliosis study. Mild dextroscoliosis centered on L1 | | | does not appear to change significantly in right or left lateral | | | flexion. Dictated and Signed by: Luciano Jaffe MD | | | Electronically signed: 03/09/2014 3:43 PM | | + + + + + | Procedure Note | + + | Benito, Rad Results In - 03/09/2014 3:46 PM PDT SCOLIOSIS STUDY: 03/09/2014 11:26 AM | | | | CLINICAL HISTORY: BACK PAIN | | | | COMPARISON: None | | | | FINDINGS: Multiple AP and lateral spot views of the spine from skull base to | | pelvis in neutral and lateral flexion positions. Because of software malfunction | | these are not contiguously merged to a single image. Also with the technique | | utilized fine bony detail is obscured. This results in limited assessment. | | | | A mild dextroscoliosis is present centered on L1. Measured from the inferior | | endplate of T10 to the superior endplate of L4 this measures approximately 12 | | degrees. It does not appear to significantly change in right or left lateral | | flexion. What appears to be a compensatory curve in the thoracic region cannot | | be assessed because of film alignment. | | | | IMPRESSION - Limited, technically unsatisfactory scoliosis study. Mild | | dextroscoliosis centered on L1 does not appear to change significantly in right | | or left lateral flexion. | | | | Dictated and Signed by: Luciano Jaffe MD | | Electronically signed: 03/09/2014 3:43 PM | + + + +---------+ + + | Performing | Address | City/State/Zipcode | Phone Number | | Organization | | | | + +---------+ + + | [facility] | | | [phone] | + +---------+ + + | [facility] | | | [phone] | + +---------+ + + XR Lumbar Spine 4 + Vw (03/09/2014 11:08 AM PDT) + + | Specimen | + + | | + + + + + | Narrative | Performed At | + + + | LUMBAR SPINE: 03/09/2014 10:58 AM CLINICAL HISTORY: Back pain | MISCELANIOUS | | COMPARISON: 03/05/2010 FINDINGS: AP, lateral and lateral flexion | LAB | | extension views. 5 lumbar segments. Mild dextroscoliosis centered on | | | L1. Vertebral body heights are normal. Alignment is normal in the | | | sagittal plane and does not change in flexion or extension. | | | Severe disc space narrowing at each level. Large endplate osteophytes | | | particularly at the upper levels. Facet joints are sclerotic | | | throughout. Appearances are unchanged from prior. IMPRESSION - | | | Stable multilevel degenerative spondylitic changes with extensive | | | osteophyte formation. Mild dextroscoliosis, unchanged. No radiographic | | | demonstration of instability. Dictated and Signed by: Luciano | | | MD Ld Electronically signed: 03/09/2014 3:49 PM | | + + + + + | Procedure Note | + + | Benito, Rad Results In - 03/09/2014 3:52 PM PDT LUMBAR SPINE: 03/09/2014 10:58 AM | | | | CLINICAL HISTORY: Back pain | | | | COMPARISON: 03/05/2010 | | | | FINDINGS: AP, lateral and lateral flexion extension views. 5 lumbar segments. | | Mild dextroscoliosis centered on L1. Vertebral body heights are normal. | | Alignment is normal in the sagittal plane and does not change in flexion or | | extension. | | | | Severe disc space narrowing at each level. Large endplate osteophytes | | particularly at the upper levels. Facet joints are sclerotic throughout. | | Appearances are unchanged from prior. | | | | IMPRESSION - Stable multilevel degenerative spondylitic changes with extensive | | osteophyte formation. Mild dextroscoliosis, unchanged. No radiographic | | demonstration of instability. | | | | Dictated and Signed by: Luciano Jaffe MD | | Electronically signed: 03/09/2014 3:49 PM | + + + +---------+ + + | Performing | Address | City/State/Zipcode | Phone Number | | Organization | | | | + +---------+ + + | [facility] | | | [phone] | + +---------+ + + | [facility] | | | [phone] | + +---------+ + + documented in this encounter Visit Diagnoses + + | Diagnosis | + + | Lumbar radiculopathy - Primary Thoracic or lumbosacral neuritis or radiculitis, | | unspecified | + + | Spinal stenosis of [...] lumbosacral intervertebral disc | + + | BACK PAIN, LUMBAR Lumbago | + + | OSTEOARTHRITIS, LUMBOSACRAL SPINE Lumbosacral spondylosis without myelopathy | + + documented in this encounter"
--- OUTSIDE RECORDS SUMMARY | ~2020-06-17 | XMS | Encounter Summary ---
Demographics + + + | Address | [address] | | | [place] [address] | + + + | Home Phone | | + + + | Preferred Language | Unknown | + + + | Marital Status | | + + + | Mandaen Affiliation | 1013 | + + + | Race | White | + + + | Ethnic Group | Not or | + + + Author + + + | Author | [facility] | | | and [place] | + + + | Organization | [facility] | | | [...] [place] | | | | | [address] | | + + + + + | Mason Fleming | ECON | Unknown | | + + + + + Care Team Providers + +------+ + | Care Director Quality Systems Name | Role | Phone | + +------+ + | Michael Grijalva | PCP | | | MD | | | + +------+ + Reason for Visit + +--------+ + | Reason | Onset | Comments | | | Date | | + +--------+ + | Imaging Only | 11/05/ | | | | 2017 | | + +--------+ + | Hip Pain | 11/05/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 pain | | | 2017 | | + +--------+ + | Coordination Of Care | 11/05/ | Physiatry | | | 2017 | | + +--------+ + Encounter Details +--------+ + + + + | Date | Type | Department | Care Team | Description | +--------+ + + + + | 11/05/ | Telephone | [facility] [place] | Joshua Jorge MD | Imaging Only; Hip | | 2017 | | NEUROSURGERY [address] | Pain (right hip | | | | [address] | [place] [address] | pain); Coordination | | | | LA[place] | [phone] | Of Care (Physiatry) | | | | [address] | | | | | | [phone] | | | +--------+ + + + + Social [...] + + documented as of this encounter Miscellaneous Notes Telephone Encounter - Jun Stout PA-C - 11/09/2017 9:53 AM PDTThank Otto morales signed by Jun Stout PA-C at 11/09/2017 9:54 AM PDTTelephone Encounter - Peter Mccormack MD - 11/08/2017 10:56 AM PDTI am happy to address this at his visit [facility]. elephone Delilah Gama RN - 11/05/2017 1:37 PM PSTs/p 08/10/2016 L2-3, L3-4, L4-5 Lateral Anterior Interbody Fusion, L5-S1 Transforaminal Lumbar Interbody Fusion, L3-4 Decompression Last seen 07/06/2017 ([place]) No pending appointments in [facility] Patient had an injection 10/06/2017 and has f/u appointment (physiatry) 11/09/2017 Patient c/o "one spot that is really uncomfortable just to right of lowest area of surgical site in alignment with right hip." Painful area close to site of SI injection Onset just prior to 10/06/2017 injection; more intense about 2-3 weeks ago Only change in activities during this time was shoveling snow; denies injury, fall, or othe r changes Has tried rest, working with geophysical manager as recommended by PT, and takes hydrocodone-a cetaminophen 10-325 mg, 1 tablet/ dose, up to 6 tablets/ day (usually 4 tablets/ day) Has not been taking muscle relaxant; has cyclobenzaprine 10 mg tablets on hand Has not tried ice, heat, massage, stretching Advised patient that message will be sent to providers to advise further regarding request for XR to check fusion. Discussed that it is unlikely that this is an issue that will show up on XR and encouraged conservative soothing measures to decrease inflammation and provide temporary relief of discomfort (ice, heat, gentle massage, gentle stretching, walking freque ntly) Also suggested he try 1/2 tab cyclobenzaprine to see if this affects his symptoms. P atient is unable to take NSAIDs. Advised patient if we do not call him back before physiatry appointment (11/09) to discuss t his further with Dr. Knox and he may be able to evaluate this complaint and advise if XR would be recommended. Patient was agreeable to this plan. Please advise if XR may be ordered per patient request elephone Encounter - Tom Schneider - 11/05/2017 12:42 PM PSTPatient would like to know if we could order an xra y for him when he comes to [facility] Wednesday to see Dr Knox. He wants to make sure nothing is wrong from the surgery documented in this encounter Plan of Treatment Not on filedocumented as of this encounter Visit Diagnoses Not on filedocumented in this encounter
--- OUTSIDE RECORDS SUMMARY | ~2020-06-17 | XMS | Encounter Summary ---
Demographics + + + | Address | [address] | | | [place] [address] | + + + | Home Phone | | + + + | Preferred Language | Unknown | + + + | Marital Status | | + + + | Quaker Affiliation | CAT | + + + | Race | Unknown | + + + | Ethnic Group | Other Race | + + + Author + + + | Author | [facility] | + + + | Organization | [facility] | + + + | Address | Unknown | + + + | Phone | Unavailable | + + + Support +---------+ +---------+ + | Name | Relationship | Address | Phone | +---------+ +---------+ + | Unk Unk | ECON | Unknown | Unavailable | +---------+ +---------+ + Care Team Providers + +------+ + | Care River Rat Name | Role | Phone | + +------+ + | Unknown | PCP | Unavailable | + +------+ + Encounter Details +--------+ + + + + | Date | Type | Department | Care Team | Description | +--------+ + + + + | 11/09/ | Documentati | Dermatology | Unknown . | | | 2017 | on | Medical at [facility] | | | | | | [facility] | | | | | | for Health and | | | | | | Healing, [address], | | | | | | 16th Floor | | | | | | [place], [place] | | | | | | [address] | | | | | | [phone] | | | +--------+ + + + + Social History + +-------+ +--------+------+ | Tobacco Use | Types | Packs/Day | Years | Date | | | | | Used | | + +-------+ +--------+------+ | Never Assessed | | | | | + +-------+ +--------+------+ + + + | Sex Assigned at | Date Recorded | | | | + + + | Not on file | | + + + documented as of this encounter Plan of Treatment Not on filedocumented as of this encounter Visit Diagnoses Not on filedocumented in this encounter"
--- OUTSIDE RECORDS SUMMARY | ~2020-06-17 | XMS | Encounter Summary ---
Demographics + + + | Address | [address] | | | [place] [address] | + + + | Home Phone | | + + + | Preferred Language | Unknown | + + + | Marital Status | | + + + | Presybeterian Affiliation | 1013 | + + + | Race | White | + + + | Ethnic Group | Not or | + + + Author + + + | Author | [facility] | | | and [place] | + + + | Organization | [facility] | | | and [...] [place] | | | | | [address] | | + + + + + | Mason Fleming | ECON | Unknown | | + + + + + Care Team Providers + +------+ + | Care Motor And Generator Assembler Name | Role | Phone | + +------+ + | Michael Grijalva | PCP | | | MD | | | + +------+ + Reason for Visit + +--------+ + | Reason | Onset | Comments | | | Date | | + +--------+ + | Follow-up | 11/29/ | Repeat Injections | | | 2018 | | + +--------+ + Encounter Details +--------+ + + + + | Date | Type | Department | Care Team | Description | +--------+ + + + + | 11/29/ | Telephone | [facility] | Efraín Turk, | Follow-up (Repeat | | 2018 | | PH[address]SIATRY [address] | PA-C [address] | Injections) | | | | [address] | [address] [facility] | | | | | [place], [place] | [place] [address] | | | | | [address] | [phone] | | | | | [phone] | | | +--------+ + + + [...] this encounter Miscellaneous Notes Telephone Encounter - Luz Marina Hollingsworth Medical Assistant - 11/30/2018 10:37 AM PDTCalled p atient and relayed Efraín's message. Patient scheduled to follow up in office to try and pin point origin of pain on 12/14. elephone Encounter - Luz Marina Hollingsworth Java Xml Developer - 12/01/19 10:31 AM PDT MICHELLE Eisenberg Java Xml Developer Caller: Unspecified (Yesterday, 9:45) Patient has had a plethora of injections surrounding the hip region (SI inj, troch bursa in j, ischial bursa inj, intraarticular hip inj). I am not sure which one to order at this time . Patient will have to come in for an eval to determine which one is best since the pain eduardo rates and the injection I order today may not be at the location of pain he is experiencing on injection day. Thanks, Efraín elep sabrina Encounter - Luz Marina Hollingsworth Java Xml Developer - 11/29/2018 9:45 AM PDTPatient called to request repeat same day injections. Upon speaking with the patient he reported his ischi al tuberosity injections only provided about 2 weeks relief, but at 100%. I advised the virgen ent that Efraín was out of office, and I would like him to advise before proceeding with any scheduling. We discussed that Efraín was not back until next week, but that I would call him as soon as we have a more definitive plan. The patient verbalized understanding. Swapnila samara signed by Luz Marina Hollingsworth, Java Xml Developer at 11/29/2018 9:56 AM PDTdocumented in thi s encounter Plan of Treatment Not on filedocumented as of this encounter Visit Diagnoses Not on filedocumented in this encounter"
--- OUTSIDE RECORDS SUMMARY | ~2020-06-17 | XMS | Encounter Summary ---
Demographics + + + | Address | [address] | | | [place] [address] | + + + | Home Phone | | + + + | Preferred Language | Unknown | + + + | Marital Status | | + + + | Adventist Affiliation | 1013 | + + + | Race | White | + + + | Ethnic Group | Not or | + + + Author + + + | Author | [facility] | | | and [place] | + + + | Organization | [facility] | | | [...] [place] | | | | | [address] | | + + + + + | Mason Fleming | ECON | Unknown | | + + + + + Care Team Providers + +------+ + | Care Centerless Grinding Machine Adjuster Name | Role | Phone | + +------+ + | Michael Grijalva | PCP | | | MD | | | + +------+ + Reason for Visit +--------+--------+ + | Reason | Onset | Comments | | | Date | | +--------+--------+ + | Other | 08/17/ | Post op call; c/o foot swelling, tingling with back and | | | 2015 | upper leg pain | +--------+--------+ + Encounter Details +--------+ + + + + | Date | Type | Department | Care Team | Description | +--------+ + + + + | 08/17/ | Telephone | [facility] | Joshua Jorge MD | Other (Post op call; | | 2016 | | NEUROSURGERY [address] | [address] | c/o foot swelling, | | | | [address] | [place] [address] | tingling with back | | | | [place] | [phone] | and upper leg pain) | | | | [address] | | | | | | [phone] | | | +--------+ + + + [...] this encounter Miscellaneous Notes Telephone Encounter - Delilah Schneider RN - 08/17/2016 2:24 PM PSTPatient notified. Requ ested US to [facility]. US order routed to [facility] with request to push to I-Site upon completion. Ca lled [facility] Imaging to schedule US; tech advised to put order in stat and they will fit patient into full schedule to r/o DVT. Patient notified. Medications to refill removed and routing to TAN[facility] Powell in separate encounter.Electronic ally signed by Delilah Schneider RN at 08/17/2016 2:33 PM PSTTelephone Encounter - Andi Jorge MD - 08/17/2016 2:04 PM PSTHe should probably get an ultrasound of the right leg to ma ke sure he does not have a DVT. We can order that for a facility closer to home. Joshua Jorge elephone Encounter - roseanna, Delilah Herring RN - 08/17/2016 11:11 AM PSTProcedure: L2-3, L3-4, L4-5 Lateral Anterior Int erbody Fusion, L5-S1 Transforaminal Lumbar Interbody Fusion, L3-4 Decompression Date of Surgery: 08/10/2016 1. How are you feeling-if pain where (legs/surgical site)? Getting adequate sleep. Having intermittent, but frequent throbbing/ aching pain in back and upper thigh, tingling in righ t foot with swelling that impairs flexion of foot. Pain/ swelling somewhat alleviated with elevation of foot, but uncomfortable in any position. Patient reported symptoms are not affe cted by ambulation and no noticeable evidence of blood clot or impaired circulation in extre mity. Patient advised that symptoms should progressively get better with healing and decrea sed inflammation, but to go to local facility to be evaluated if symptoms worsen, circulatio n diminishes in foot or if he becomes increasingly concerned about what he is experiencing. 2. Weakness/Numbness (New onset)? No. 3.Taking pain meds (Name/Dosage)? Cyclobenzaprine every 6 hours; Hydrocodone 2 tablets leticia ry 4 hours; MS 30 ER 1 tablet every 12 hours; Gabapentin 1 tablet 3 times daily 4.Loss of Bowel or Bladder (When/Chronic)? No Constipation? Yes. No BM for 7 days. Usi ng laxative, stool softener, increasing fluid and fiber intake and ambulating often 5.Ambulating (How often)? Every 15-40 minutes; using a timer to make sure he ambulates at least as often as advised. SURGICAL ISSUES 1.Steri-strips/outer bandages intact. Advised ok to remove outer bandages and to leave unc overed for showers. Remove any remaining steri strips at 2 weeks post op. Rimma/sutures that need to be removed no. Operative note reviewed yes. 2.Appearance of the site? Have not looked at it; Will check during shower with removal of outer bandages and report anything of concern. No noticeable redness or swelling at incisio ns. Is there drainage from the site? no. 3.Do you have a fever? no. 4.Follow up appointments? 09/17/2016 @ 1030. Reminded of need for Xrays prior and confirme d plans to have imaging completed at [facility] by 0900 that day. Staple/suture removal nurse visit? N/A 5.What could we have done to make your visit better? "Rescheduled for spine class a coupl e of times which was inconvenient and made it so we did not make it to spine class; needed m ore advice on support needed for toilet area; otherwise very pleased with care provided." 6. Has preoperative pain improved? Yes. Ambulating with less difficulty and able to perfor m ADLs with less difficulty; gait more stable, not feeling light-headed. All questions answered. Patient requesting refills for Hydrocodone and MS to be sent via [facility]. Please advise further regarding symptoms reported if necessary. elephone Encounter - Kentrell Sanchez - 08/17/2016 10:5 7 AM PSTPatient called he is feeling a tingling, throbbing pain in his thigh, swelling of hi s right foot and cannot find any comfort in a sitting position. Please return call. Arnaldo morales signed by Kentrell Sanchez at 08/17/2016 10:58 AM PSTdocumented in this encounter Plan of Treatment + +---------+--------+ + + | Name | Type | Priori | Associated Diagnoses | Order Schedule | | | | ty | | | + +---------+--------+ + + | VAS Lower Extremity | Imaging | STAT | S/P lumbar fusion | Expected: | | Venous Right | | | Edema of right foot | 08/17/2016, Expires: | | | | | | 08/17/2017 | + +---------+--------+ + + documented as of this encounter Visit Diagnoses + + | Diagnosis | + + | S/P lumbar fusion - Primary Arthrodesis status | + + | Edema of right foot | + + documented in this encounter
--- OUTSIDE RECORDS SUMMARY | ~2020-06-17 | XMS | Encounter Summary ---
Demographics + + + | Address | [address] | | | [place] [address] | + + + | Home Phone | | + + + | Preferred Language | Unknown | + + + | Marital Status | | + + + | Hindu Affiliation | 1013 | + + + | Race | White | + + + | Ethnic Group | Not or | + + + Author + + + | Author | [facility] | | | and [place] | + + + | Organization | [facility] | | | and [...] [place] | | | | | [address] | | + + + + + | Mason Fleming | ECON | Unknown | | + + + + + Care Team Providers + +------+ + | Care Insurance Assistant Name | Role | Phone | + +------+ + | Michael Grijalva | PCP | | | MD | | | + +------+ + Encounter Details +--------+ + + + + | Date | Type | Department | Care Team | Description | +--------+ + + + + | 01/04/ | Hospital | [facility] | Efraín Turk, | S/P lumbar fusion | | 2019 | Encounter | MED CTR XRAY [address] | PA-C [address] | | | | | [place] | [address] [place] | | | | | [place] [address] | [place] [address] | | | | | [phone] | [phone] | | | | | | | | +--------+ + + + [...] + + documented as of this encounter Medications at Time of Discharge + + + +---------+ + + | Medication | Sig | Dispensed | Refills | Start | End Date | | | | | | Date | | + + + +---------+ + + | cyclobenzaprine | Take 10 mg by mouth | | 0 | 01/26/20 | | | (FLEXERIL) 10 mg | as needed. | | | 18 | | | tablet | | | | | | + + + +---------+ + + | DHEA 50 MG TABS | Take 100 mg by mouth | | 0 | | | | | Daily. | | | | | + + + +---------+ + + | ergocalciferol | Take 50,000 Units by | | 0 | | | | (VITAMIN D-2) 50,000 | mouth Once a week. | | | | | | units capsule | | | | | | + + + +---------+ + + | escitalopram | Take 40 mg by mouth | | 0 | | | | (LEXAPRO) 20 mg | Daily. | | | | [...] + + + +---------+ + + | furosemide (LASIX) | Take 40 mg by mouth | | 0 | 11/07/19 | | | 20 mg tablet | 2 times daily . | | | 17 | | + + + +---------+ + + | gabapentin | TAKE 2 TABLETS BY | 180 | 4 | 10/23/19 | | | (NEURONTIN) 300 mg | MOUTH NIGHTLY FOR | capsule | | 17 | | | capsule | NEUROPATHIC PAIN | | | | | + + [...] + + + +---------+ + + | potassium chloride | Take 10 mEq by mouth | | 0 | 11/07/19 | | | (KLOR-CON) 10 mEq | as needed. | | | 17 | | | CR tablet | | | | | | [...] + + +---------+ + + | | Take 1-2 tablets by | 120 | 0 | 10/19/19 | | | HYDROcodone-acetamin | mouth every 4 hours | tablet | | 17 | 9 | | ophen (NORCO) 10-325 | as needed for Pain. | | | | | | mg per | | | | | | | tabletIndications: | | | | | | | S/P lumbar fusion | | | | | | + [...] + + + +---------+ + + | lisinopril | Take 10 mg by mouth | | 0 | | | | (PRINIVIL, ZESTRIL) | Daily. | | | | 0 | | 10 mg tablet | | | | | | + + + +---------+ + + | theophylline | | | 0 | 10/23/19 | | | (UNIPHYL) 400 MG 24 | | | | 17 | 9 | | hr tablet | | | | | | + + + +---------+ + + | UNABLE TO FIND | Med Name: 8-20cm | | 0 | | | | | | | | | 0 | + + + +---------+ + + documented as of this encounter Plan of Treatment Not on filedocumented as of this encounter Procedures + +--------+ + + + | Procedure Name | Priori | Date/Time | Associated Diagnosis | Comments | | | ty | | | | + +--------+ + + + | XR LUMBAR SPINE 2 OR | Routin | 01/04/2019 | S/P lumbar fusion | Results for this | | 3 VW | e | 12:44 PM | | procedure are in the | | | | PDT | | results section. | + +--------+ + + + documented in this encounter Results XR Lumbar Spine 2 or 3 Vw (01/04/2019 12:44 PM PDT) + + | Specimen | + + | | + + + + + | Narrative | Performed At | + + + | EXAM:XR LUMBAR SPINE 2 OR 3 VW CLINICAL HISTORY: back pain. Hx | [facility] | | L1-S1 fusion COMPARISON: Lumbar spine radiographs dating to | | | 12/30/2016 FINDINGS: Frontal and lateral views of the Lumbar spine. | | | Posterior and interbody fusion changes from L1 through S1. Left | | | lateral vertebral body screws in L4. The hardware is intact. There | | | is no change in position of the interbody graft markers. There is | | | no change in spinal alignment. There are no interval compression | | | deformities. IMPRESSION - No radiographic evidence for an | | | interval complication. Dictated and Signed by: Chauncey Rivers MD | | | Electronically signed: 01/04/2019 2:28 PM | | + + + + + | Procedure Note | + + | Pj Oliver Results In - 01/04/2019 2:31 PM PDT EXAM:XR LUMBAR SPINE 2 OR 3 VW | | | | CLINICAL HISTORY: back pain. Hx L1-S1 fusion | | | | COMPARISON: Lumbar spine radiographs dating to 12/30/2016 | | | | FINDINGS: Frontal and lateral views of the Lumbar spine. Posterior and interbody | | fusion changes from L1 through S1. Left lateral vertebral body screws in L4. | | The hardware is intact. There is no change in position of the interbody graft | | markers. There is no change in spinal alignment. There are no interval | | compression deformities. | | | | IMPRESSION - | | | | No radiographic evidence for an interval complication. | | | | Dictated and Signed by: Chauncey Rivers MD | | Electronically signed: 01/04/2019 2:28 PM | + + + +---------+ + + | Performing | Address | City/State/Zipcode | Phone Number | | Organization | | | | + +---------+ + + | [facility] | | | | + +---------+ + + documented in this encounter Visit Diagnoses + + | Diagnosis | + + | S/P lumbar fusion Arthrodesis status | + + documented in this encounter"
--- OUTSIDE RECORDS SUMMARY | ~2020-06-17 | XMS | Encounter Summary ---
Demographics + + + | Address | [address] | | | [place] [address] | + + + | Home Phone | | + + + | Preferred Language | Unknown | + + + | Marital Status | | + + + | Oriental Orthodox Affiliation | 1013 | + + + | Race | White | + + + | Ethnic Group | Not or | + + + Author + + + | Author | [facility] | | | and [place] | + + + | Organization | [facility] | | | [...] [place] | | | | | [address] | | + + + + + | Mason Fleming | ECON | Unknown | | + + + + + Care Team Providers + +------+ + | Care Developmental Mathematics Professor Name | Role | Phone | + [...] | | Radiology | Diagnoses | | | | | | | Primary | Lyn, | | | | | | osteoarthrit | Aleja, | | | | | | is of both | PA-C [address] | | | | | | hips | [address], | | | | | | Procedures | [address] | | | | | | [place] | [place] | | | | | | and/or Inj | [address] | | | | | | Major Joint | Phone: | | | | | | Left | [phone] | | | | | | | Fax: | | | | | | | [phone] | | +--------+--------+ + + + + Reason for Visit + +--------+ + | Reason | Onset | Comments | | | Date | | + +--------+ + | Appointment | 05/04/ | | | | 2017 | | + +--------+ + | Injections | 05/04/ | | | | 2017 | | + +--------+ + Encounter Details +--------+ + + + + | Date | Type | Department | Care Team | Description | +--------+ + + + + | 05/04/ | Telephone | [facility] | Lyn, | Appointment; | | 2017 | | PHYSIATRY [address] | MICHELLE Masterson [address] | Injections | | | | [address] | [address] | | | | | [place], [place] | [place] [address] | | | | | [address] | [phone] | | | | | [phone] | | | +--------+ + + + [...] this encounter Miscellaneous Notes Telephone Encounter - Pepper Jimenez Structural Worker - 05/11/2018 3:51 PM PDTPatient r eturned our call and has been scheduled with Efraín Turk as a same day on 06/13/2018 at 11: 20am with the injection scheduled at 12:30 pm. elephone Encounter - Pepper Jimenez Medical Assis tant - 05/10/2018 2:24 PM PDTCalled patient to schedule with Efraín Turk PA-C as a same da y. Left voicemail to return our call. elephone Encounter - Aleja Nicholson PA-C - 05/09/2018 11:39 AM PDTIt looks like we have been doing right and left intra-articular hip injections. I have ordered them. He always gets same day injections. I have ordered the injections now. Please place him o n Efraín's Schedule. elephone Encounter - Doreen Singh - 05/04/2018 8:52 AM PDTPatient called to schedule a follow up with Aleja. He also requested same day injection. This has been done in the [facility] t, but since policy has changed I'm not sure if we are still able to offer this. Ok to sched ule with hold for injection? Tdocumented in this encounter Plan of Treatment Not on filedocumented as of this encounter Results [place] Asp and/or Inj Major Joint Left (06/13/2018 12:50 PM PDT) + + | Specimen | + + | | + + + + + | Narrative | Performed At | + + + | 06/13/2018 | [facility] | | LEFT INTRAARTICULAR HIP INJECTION CLINICAL HISTORY: ICD-10 CODE | | | M25.55, HIP PAIN. Piter Fleming presents to the fluoroscopy | | | suite for a fluoroscopically-guided left intraarticular hip injection | | | as part of conservative management for chronic pain and hip | | | arthropathy. After informed consent was obtained, the patient laid | | | in the supine position on the fluoroscopy table. The left | | | intertrochanteric line was located under fluoroscopic guidance. The | | | area was prepped and draped in a sterile fashion. Then a 25-gauge 1.5 | | | inch needle was inserted into this region and approximately 3 mL | | | buffered 1% lidocaine was infused. Next a 22-gauge spinal needle was | | | inserted into the joint space under fluoroscopic guidance. | | | Confirmation into the joint capsule was obtained with infusion of | | | approximately 1 mL Omnipaque contrast, which showed capsular flow. | | | Then, a combination of 1 mL of 40 mg/mL Kenalog and 4 mL 1% lidocaine | | | was infused. The patient tolerated the procedure well without | | | complications. Pre- and post-procedure blood pressure was stable. The | | | patient was given verbal as well as written followup instructions. The | | | patient reported good improvement in pain symptoms post-procedure. | | | Prior to the start of the procedure, the following were performed or | | | verified, including correct patient identity, correct site/side marked | | | and verified, agreement of the procedure to be done, correct patient | | | positioning and an accurate procedure consent form. Any safety | | | precautions based on clinical history and/or medication use have been | | | addressed. I personally performed the procedure above. Estimated | | | blood loss: MinimalComplications: NoneFindings: As | | | expectedAnesthesia: Local 1% Lidocaine | | |based on clinical history and/or medication use have been addressed. | | | | | |I personally performed the procedure above. | | | | | |Estimated blood loss: Minimal | | |Complications: None | | |Findings: As expected | | |Anesthesia: Local 1% Lidocaine | | | | | | | | + + + + +---------+ + + | Performing | Address | City/State[facility] | Phone Number | | Organization | | | | + +---------+ + + | [facility] | | | | + +---------+ + + documented in this encounter Visit Diagnoses + + | Diagnosis | + + | Primary osteoarthritis of both hips - Primary Primary localized osteoarthrosis, | | pelvic region and thigh | + + documented in this encounter"
--- OUTSIDE RECORDS SUMMARY | ~2020-06-17 | XMS | Encounter Summary ---
Demographics + + + | Address | [address] | | | [place] [address] | + + + | Home Phone | | + + + | Preferred Language | Unknown | + + + | Marital Status | | + + + | Baptism Affiliation | 1013 | + + + | Race | White | + + + | Ethnic Group | Not or | + + + Author + + + | Author | [facility] | | | and [place] | + + + | Organization | [facility] | | | and [...] [place] | | | | | [address] | | + + + + + | Mason Fleming | ECON | Unknown | | + + + + + Care Team Providers + +------+ + | Care Human Resources Generalist Name | Role | Phone | + +------+ + | Michael Grijalva | PCP | | | MD | | | + +------+ + Reason for Visit + +--------+ + | Reason | Onset | Comments | | | Date | | + +--------+ + | Procedure | 07/31/ | | | | 2018 | | + +--------+ + Encounter Details +--------+ + + + + | Date | Type | Department | Care Team | Description | +--------+ + + + + | 07/31/ | Telephone | [facility] | Hollis Seaman, | Procedure | | 2018 | | ORTHOPEDIC SURGERY | [address] [facility] | | | | | [address] | [place] [facility] [place] | | | | | [place] | [address] | | | | | [address] | | | | | | [phone] | | | +--------+ + + + [...] this encounter Miscellaneous Notes Telephone Encounter - Abimbola Malin Cert MA - 07/31/2019 12:41 PM PSTI contact marcella mcgowan. He is scheduled for surgery on 09/05/2018 for a Right Total hip Arthroplasty. PT Lei scheduled 08/03/2019 PREOP with Jurgen scheduled on 08/11/2019 at 10:45. Piter will let me know if he has any questions or concerns or if we need to reschedule any of these appointment dates or times. elephon e Encounter - Florina Hill - 07/31/2019 10:07 AM PSTPatient called in wanting to k now if his surgery with Dr. Seaman has been approved. Please advise at [phone].Electro nically signed by Florina Marley at 07/31/2019 10:09 AM PSTdocumented in this encount er Plan of Treatment Not on filedocumented as of this encounter Visit Diagnoses Not on filedocumented in this encounter"
--- OUTSIDE RECORDS SUMMARY | ~2020-06-17 | XMS | Encounter Summary ---
Demographics + + + | Address | [address] | | | [place] [address] | + + + | Home Phone | | + + + | Preferred Language | Unknown | + + + | Marital Status | | + + + | Congregational Affiliation | 1013 | + + + | Race | White | + + + | Ethnic Group | Not or | + + + Author + + + | Author | [facility] | | | and [...] [place] | | | | | [address] | | + + + + + | Mason Fleming | ECON | Unknown | | + + + + + Care Team Providers + +------+ + | Care Soap Press Feeder Name | Role | Phone | + +------+ + | Michael Grijalva | PCP | | | MD | | | + +------+ + Reason for Visit Evaluate & Treat (Routine) +--------+ + + [...] Services | Medicine | BETTY | Brooks D | [place] [address] | | | Required | | (obstructive | MD [address] | [place] | | | | | sleep | [place] | [place], | | | | | apnea) | [facility] | [place] [address] | | | | | Procedures | [place], [place] | Phone: | | | | | [place] SLE[facility] | [address] | [phone] | | | | | STUDY, | Phone: | Fax: | | | | | UNATTENDED, | [phone] | [phone] | | | | | SIMUL RECORD | Fax: | | | | | | HR/O2 | [phone] | | | | | | SAT/RESP | | | | | | | FLOW/RESP | | | | | | | EFF HST | | | +--------+ + + + + + Encounter Details +--------+ + + + + | Date | Type | Department | Care Team | Description | +--------+ + + + + | 02/18/ | Hospital | [facility] | Brooks Brown | BETTY (obstructive | | 2017 - | Encounter | MED CTR SLEEP | [address] [place] | sleep apnea) | | | | [address] [place] | [place] [facility] | | | 02/19/ | | Mitra Manriquez ID | [facility] [place] [id number] | | | 2017 | | [address] | [phone] | | | | | [phone] | | | +--------+ + + + [...] + + documented as of this encounter Procedure Notes Brooks Brown Jr., MD - 02/19/2017 9:55 AM PDTAssociated Order(s): SLEEP STUDY HOME SLE EP TESTProcedure(s): SLEEP STUDY HOME SLEEP TESTPre-Procedure Diagnose(s): BETTY (obstructive sleep apnea)Post-Procedure Diagnose(s): BETTY (obstructive sleep apnea) [facility] [place] [address] Unattended, Multiparameter, Sleep Apnea Test for Piter Fleming performed on February 18, 2017. Identifying Information: Piter Fleming is a 71 y.o. male who is referred for unattend ed, multi-parameter, sleep apnea test because of probable Obstructive Sleep Apnea. Technical Information: The study was performed on February 18, 2017 using the [employer] d equipment with Polysmith Version 9 Software. The study was hand scored and hand analyzed. The following physiologic parameters were monitored: snoring, body position, oxygen saturati on, heart rate, nasal airflow (PTAF), oral airflow (thermister) and thoracic and abdominal e ffort (RIP belts). EEG was not monitored and thus sleep staging was not performed. A sleep e fficiency of 100% was assumed for the purposes of calculating indices; this assumption can r esult in a significant underestimation of disease severity. Because EEG was not monitored, R espiratory Effort Related Arousals could not be enumerated; this can also result in underest imation of disease severity. The sensitivity for Obstructive Sleep Apnea of this type of barry dy is high but the specificity is low. Definitions (The AASM Manual for the Scoring of Sleep and Associated Events, Version 2.3; 2 016): Apnea: There is a drop in the peak signal excursion by 90% or greater of pre-event baselin e using an oronasal thermal sensor, or an alternative apnea sensor and the duration of the 9 0% or greater drop in sensor signal is greater than or equal to 10 seconds. Obstructive Apnea: Event associated with continued or increased inspiratory effort throug hout the entire period of absent airflow. Central Apnea: Event associated with absent inspiratory effort throughout the entire arnol od of absent airflow. Because EEG is not monitored, Central Apneas cannot be scored with any degree of reliability on this type of sleep study. Mixed Apnea: Event associated with absent inspiratory effort in the initial portion of th e event followed by resumption of inspiratory effort during the second portion of the event. Because EEG is not monitored, mixed apneas are not reliably scored on this type of study. Respiratory Event: The peak signal excursions drop by greater than or equal to 30% of pre- event baseline using a recommended or alternative airflow sensor and the duration of the >= 30% drop in signal excursion is greater than or equal to 10 seconds and there is a greater t barry or equal to a 4% oxygen desaturation from pre-event baseline. Respiratory Event Related Arousal: Because EEG is not recorded, Respiratory Event Related Arousal's cannot be enumerated. MOHINI (Respiratory Event Index): Apneas plus Respiratory Events divided by Monitoring Time. Results: Data collection commenced at 2224 hundred hours on February 18, 2017 and data collecti on terminated at 0601 hundred hours on February 19, 2017. During the 456.5 minutes monitoring ti me there were 53 obstructive apneas, 0 central apneas, 0 mixed apneas and 38 respiratory leticia nts. The MOHINI was 12 which is elevated. The events were of significance in all positions but they were more frequent in the supine position (supine MOHINI 31.7, nonsupine MOHINI 8.3). The res piratory events occasioned a kitty oxygen saturation of 86 % and the patient spent 16.3 alexis ashvin with an oxygen saturation of less than 90%. The heart rate averaged in the 40. Interpretation: This unattended, multiparameter, sleep apnea test is abnormal because of th e following: Obstructive sleep apnea is diagnosed and this is associated with significant oxygen desatur ation. Suggestions: Treatment of Obstructive Sleep Apnea is advised. Brooks Brown Jr., MD, [facility] Upkeep Worker Johana Almonte [facility] [place], [place] Clinical airborne weapons technical manager [facility], [place] docum ented in this encounter Plan of Treatment Not on filedocumented as of this encounter Procedures + +--------+ + + + | Procedure Name | Priori | Date/Time | Associated Diagnosis | Comments | | | ty | | | | + +--------+ + + + | SLEEP STUDY HOME | Routin | 02/19/2017 | | Results for this | | SLEEP TEST | e | 9:57 AM | | procedure are in the | | | | PDT | | results section. | + +--------+ + + + | SLEEP STUDY HOME | Routin | 02/19/2017 | | Results for this | | SLEEP TEST | e | 9:57 AM | | procedure are in the | | | | PDT | | results section. | + +--------+ + + + documented in this encounter Results Sleep study home sleep test (02/19/2017 9:57 AM PDT) + + + | Narrative | Performed At | + + + | Brooks Genao | | | Kevin Woodard MD 02/19/2017 9:57 [facility] | | | [place] [address] | | | Unattended, Multiparameter, Sleep Apnea Test for Piter Fleming | | | performed on February 18, 2017. Identifying Information: Piter Reich | | | Lonnie is a 71 y.o. male who is referred for unattended, | | | multi-parameter, sleep apnea test because of probable Obstructive | | | Sleep Apnea. Technical Information: The study was performed on January | | | 2016 using the [employer] Nomad equipment with PolysmitFront Up Version | | | 9 Software. The study was hand scored and hand analyzed. The | | | following physiologic parameters were monitored: snoring, body | | | position, oxygen saturation, heart rate, nasal airflow (PTAF), oral | | | airflow (thermister) and thoracic and abdominal effort (RIP belts). | | | EEG was not monitored and thus sleep staging was not performed. A | | | sleep efficiency of 100% was assumed for the purposes of calculating | | | indices; this assumption can result in a significant underestimation | | | of disease severity. Because EEG was not monitored, Respiratory Effort | | | Related Arousals could not be enumerated; this can also result in | | | underestimation of disease severity. The sensitivity for Obstructive | | | Sleep Apnea of this type of study is high but the specificity is low. | | | Definitions (The AASM Manual for the Scoring of Sleep and Associated | | | Events, Version 2.3; 2016): Apnea: There is a drop in the peak signal | | | excursion by 90% or greater of pre-event baseline using an oronasal | | | thermal sensor, or an alternative apnea sensor and the duration of the | | | 90% or greater drop in sensor signal is greater than or equal to 10 | | | seconds. Obstructive Apnea: Event associated with continued or | | | increased inspiratory effort throughout the entire period of absent | | | airflow. Central Apnea: Event associated with absent inspiratory | | | effort throughout the entire period of absent airflow. Because EEG is | | | not monitored, Central Apneas cannot be scored with any degree of | | | reliability on this type of sleep study. Mixed Apnea: Event | | | associated with absent inspiratory effort in the initial portion of | | | the event followed by resumption of inspiratory effort during the | | | second portion of the event. Because EEG is not monitored, mixed | | | apneas are not reliably scored on this type of study. Respiratory | | | Event: The peak signal excursions drop by greater than or equal to 30% | | | of pre-event baseline using a recommended or alternative airflow | | | sensor and the duration of the >= 30% drop in signal excursion is | | | greater than or equal to 10 seconds and there is a greater than or | | | equal to a 4% oxygen desaturation from pre-event baseline. Respiratory | | | Event Related Arousal: Because EEG is not recorded, Respiratory Event | | | Related Arousal's cannot be enumerated. MOHINI (Respiratory Event | | | Index): Apneas plus Respiratory Events divided by Monitoring Time. | | | Results: Data collection commenced at 2224 hundred hours on February 18 | | | 2016 and data collection terminated at 0601 hundred hours on February 19 | | | 2016. During the 456.5 minutes monitoring time there were 53 | | | obstructive apneas, 0 central apneas, 0 mixed apneas and 38 | | | respiratory events. The MOHINI was 12 which is elevated. The events were | | | of significance in all positions but they were more frequent in the | | | supine position (supine MOHINI 31.7, nonsupine MOHINI 8.3). The respiratory | | | events occasioned a kitty oxygen saturation of 86 % and the patient | | | spent 16.3 minutes with an oxygen saturation of less than 90%. The | | | heart rate averaged in the 40. Interpretation: This unattended, | | | multiparameter, sleep apnea test is abnormal because of the following: | | | Obstructive sleep apnea is diagnosed and this is associated with | | | significant oxygen desaturation. Suggestions: Treatment of Obstructive | | | Sleep Apnea is advised. Brooks Brown Jr., MD, FAASMMedical | | | [facility] | | | [facility] Fashion Show Director of | | | [place], [place] | | |Results: Data collection commenced at 2224 hundred hours on January | | |2016 and data collection terminated at 0601 hundred hours on | | |February 19, 2017. During the 456.5 minutes monitoring time there | | |were 53 obstructive apneas, 0 central apneas, 0 mixed apneas and | | |38 respiratory events. The MOHINI was 12 which is elevated. The | | |events were of significance in all positions but they were more | | |frequent in the supine position (supine MOHINI 31.7, nonsupine MOHINI | | |8.3). The respiratory events occasioned a kitty oxygen saturation | | |of 86 % and the patient spent 16.3 minutes with an oxygen | | |saturation of less than 90%. The heart rate averaged in the 40. | | | | | |Interpretation: This unattended, multiparameter, sleep apnea test | | |is abnormal because of the following: | | |Obstructive sleep apnea is diagnosed and this is associated with | | |significant oxygen desaturation. | | | | | |Suggestions: | | |Treatment of Obstructive Sleep Apnea is advised. | | | | | |Brooks Brown Jr., MD, [facility] | | |Upkeep Worker | | |Johana Almonte [facility] | | |[facility] | | |[place], [place] | | |Clinical airborne weapons technical manager | | |[facility] | | |[place], [place] | | + + + + + | Procedure Note | + + | Brooks Brown Jr., MD - 02/19/2017 9:55 AM PDT [facility] | | Disorders [place], [place] [id number], | | Multiparameter, Sleep Apnea Test for Piter Fleming performed on Leonie 22, | | 2017.Identifying Information: Piter Fleming is a 71 y.o. male who is referred for | | unattended, multi-parameter, sleep apnea test because of probable Obstructive Sleep | | Apnea.Technical Information: The study was performed on February 18, 2017 using the | | [employer] equipment with PolysmitFront Up Version 9 Software. The study was hand | | scored and hand analyzed. The following physiologic parameters were monitored: snoring, | | body position, oxygen saturation, heart rate, nasal airflow (PTAF), oral airflow | | (thermister) and thoracic and abdominal effort (RIP belts). EEG was not monitored and | | thus sleep staging was not performed. A sleep efficiency of 100% was assumed for the | | purposes of calculating indices; this assumption can result in a significant | | underestimation of disease severity. Because EEG was not monitored, Respiratory Effort | | Related Arousals could not be enumerated; this can also result in underestimation of | | disease severity. The sensitivity for Obstructive Sleep Apnea of this type of study is | | high but the specificity is low.Definitions (The AASM Manual for the Scoring of Sleep | | and Associated Events, Version 2.3; 2016): Apnea: There is a drop in the peak signal | | excursion by 90% or greater of pre-event baseline using an oronasal thermal sensor, or | | an alternative apnea sensor and the duration of the 90% or greater drop in sensor signal | | is greater than or equal to 10 seconds. Obstructive Apnea: Event associated with | | continued or increased inspiratory effort throughout the entire period of absent | | airflow. Central Apnea: Event associated with absent inspiratory effort throughout the | | entire period of absent airflow. Because EEG is not monitored, Central Apneas cannot be | | scored with any degree of reliability on this type of sleep study. Mixed Apnea: Event | | associated with absent inspiratory effort in the initial portion of the event followed | | by resumption of inspiratory effort during the second portion of the event. Because EEG | | is not monitored, mixed apneas are not reliably scored on this type of study. | | Respiratory Event: The peak signal excursions drop by greater than or equal to 30% of | | pre-event baseline using a recommended or alternative airflow sensor and the duration of | | the >= 30% drop in signal excursion is greater than or equal to 10 seconds and there is | | a greater than or equal to a 4% oxygen desaturation from pre-event baseline. | | Respiratory Event Related Arousal: Because EEG is not recorded, Respiratory Event | | Related Arousal's cannot be enumerated. MOHINI (Respiratory Event Index): Apneas plus | | Respiratory Events divided by Monitoring Time.Results: Data collection commenced at 2224 | | hundred hours on February 18, 2017 and data collection terminated at 0601 hundred hours on | | February 19, 2017. During the 456.5 minutes monitoring time there were 53 obstructive | | apneas, 0 central apneas, 0 mixed apneas and 38 respiratory events. The MOHINI was 12 which | | is elevated. The events were of significance in all positions but they were more | | frequent in the supine position (supine MOHINI 31.7, nonsupine MOHINI 8.3). The respiratory | | events occasioned a kitty oxygen saturation of 86 % and the patient spent 16.3 minutes | | with an oxygen saturation of less than 90%. The heart rate averaged in the | | 40.Interpretation: This unattended, multiparameter, sleep apnea test is abnormal because | | of the following: Obstructive sleep apnea is diagnosed and this is associated with | | significant oxygen desaturation.Suggestions: Treatment of Obstructive Sleep Apnea is | | advised.Brooks Brown Jr., MD, [facility]OSPITALSMMedical DirectorNorthwest Medical Center Sleep | | [facility] CenterProv[facility] [place] Hospitalinical Associate | | Professor of [place], [place] | + + documented in this encounter Visit Diagnoses + + | Diagnosis | + + | BETTY (obstructive sleep apnea) Obstructive sleep apnea (adult) (pediatric) | + + documented in this encounter"
--- OUTSIDE RECORDS SUMMARY | ~2020-06-17 | XMS | Encounter Summary ---
Demographics + + + | Address | [address] | | | [place] [address] | + + + | Home Phone | | + + + | Preferred Language | Unknown | + + + | Marital Status | | + + + | Church Affiliation | 1013 | + + + | Race | White | + + + | Ethnic Group | Not or | + + + Author + + + | Author | [facility] | | | and [place] | + + + | Organization | [facility] | | | [...] [place] | | | | | [address] | | + + + + + | Mason Fleming | ECON | Unknown | | + + + + + Care Team Providers + +------+ + | Care Machine Hose Cutter Name | Role | Phone | + +------+ + | Michael Grijalva | PCP | | | MD | | | + +------+ + Reason for Visit Auth/Cert +--------+--------+ + + + + | Status | Reason | Specialty | Diagnoses / | Referred By | Referred To | | | | | Procedures | Contact | Contact | +--------+--------+ + + + + | | | | Diagnoses | | Jur[place], | | | | | Primary | | Hollis Xie MD | | | | | 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[place], | | | | | hip Right | | [place] [address] | | | | | hip pain | | Phone: | | | | | Procedures | | [phone] | | | | | [place] TOTAL HIP | | Fax: | | | | | | | [phone] | | | | | ARTHROPLASTY | | | | | | | Right | | | | | | | Total Hip | | | | | | | Arthroplasty | | | | | | | Anterior | | | | | | | Approach | | | +--------+--------+ + + + + Encounter Details +--------+ + + + + | Date | Type | Department | Care Team | Description | +--------+ + + + + | 09/05/ | Hospital | [facility] | Hollis Seaman, | | | 2019 | Encounter | MED CTR XRAY [address] | [address] [facility] [address] | | | | | [place] | [place], [place] | | | | | [place] [address] | [address] | | | | | [phone] | | | +--------+ + + + [...] + + + +---------+ + + | buprenorphine | Place 8 mg under the | | 0 | 06/10/20 | | | (SUBUTEX) 8 mg SUBL | tongue. 3-4 tabs | | | 19 | | | | daily | | | | | + + [...] + + + +---------+ + + | docusate sodium | Take 200 mg by mouth | 60 | 0 | 09/07/19 | | | (COLACE) 100 MG | 2 times daily. | capsule | | 20 | | | capsule | | | [...] 175 mcg by | | 0 | | | | (SYNTHROID) 175 mcg | mouth every morning | | | | | | tablet | (before breakfast). | | | | | + + [...] + + + +---------+ + + | oxyCODONE | Take 1-3 tablets by | 60 | 0 | 09/07/19 | | | (ROXICODONE) 5 mg | mouth every 3 hours | tablet | | 20 | 0 | | tablet | as needed for Pain. | | | | | | | exempt | | | | | + + + +---------+ + + | rivaroxaban | Take 1 tablet by | 14 | 0 | 09/07/19 | | | (XARELTO) 10 mg | mouth Daily. | tablet | | 20 | 0 | | tablet | | | | | | + + + +---------+ + + | theophylline | Take 400 mg by mouth | | 0 | 02/02/20 | | | (UNIPHYL) 400 MG 24 | Daily. | | | 19 | 0 | | hr tablet | | | | | | + + + +---------+ + + documented as of this encounter Plan of Treatment Not on filedocumented as of this encounter Procedures + +--------+ + + + | Procedure Name | Priori | Date/Time | Associated Diagnosis | Comments | | | ty | | | | + +--------+ + + + | CHEVY COOK STATS NO | Routin | 09/05/2019 | | Results for this | | CHARGE | e | 2:02 PM | | procedure are in the | | | | PST | | results section. | + +--------+ + + + documented in this encounter Results CHEVY Lara Stats No Charge (09/05/2019 2:02 PM PST) + + | Specimen | + + | | + + + + + | Narrative | Performed At | + + + | This exam has been auto-finalized. It was entered for statistical | [facility] | | purposes only. | | + + + + +---------+ + + | Performing | Address | City/State/Zipcode | Phone Number | | Organization | | | | + +---------+ + + | [facility] | | | | + +---------+ + + documented in this encounter Visit Diagnoses Not on filedocumented in this encounter"
--- OUTSIDE RECORDS SUMMARY | ~2020-06-17 | XMS | Encounter Summary ---
Demographics + + + | Address | [address] | | | [place] [address] | + + + | Home Phone | | + + + | Preferred Language | Unknown | + + + | Marital Status | | + + + | Synagogue Affiliation | 1013 | + + + | Race | White | + + + | Ethnic Group | Not or | + + + Author + + + | Author | [facility] | | | and [place] | + + + | Organization | [facility] | | | and [place] | + + + | Address | Unknown | + + + | Phone | Unavailable | + + + Support + + + + + | Name | Relationship | Address | Phone | + + + + + | Aby Fischer | ECON | [address] | | | | | [place] | | | | | [address] | | + + + + + | Mason Fischer | ECON | Unknown | | + + + + + Care Team Providers + +------+ + | Care Integrity Director Name | Role | Phone | + +------+ + | Michael Grijalva | PCP | | | MD | | | + +------+ + Encounter Details +--------+ + + + + | Date | Type | Department | Care Team | Description | +--------+ + + + + | 04/06/ | Hospital | [facility] | [facility] | | | 2012 | Encounter | MED CTR XRAY [address] | | | | | [place] | [place], [place] | | | | | [place] [address] | [address] | | | | | [phone] | | | +--------+ + + + [...] 0 | 05/13/20 | | | (D3-50) [id number] UNITS | week. | | | 12 | 5 | | CAPS | | | | | | + + + +---------+ + + | Cholecalciferol | Take one capsule by | | 0 | 05/13/20 | | | (D3-50) 89310 UNITS | mouth twice weekly | | | 12 | 4 | | CAPS | | | | [...] +---------+ + + | levothyroxine | Take 200 mcg by | | 0 | 05/13/20 | | | (LEVOTHROID) 200 mcg | mouth Daily. | | | 12 | 4 | | tablet | | | | [...] | FL EPIDURAL STEROID | Routin | 04/06/2013 | | Results for this | | INJECTION LUMBAR | e | 6:12 PM | | procedure are in the | | TRANSFORAMINAL | | PDT | | results section. | + +--------+ + + + documented in this encounter Results FL SHIRLEY Lumbar Transforaminal (04/06/2013 6:12 PM PDT) + + | Specimen | + + | | + + + + + | Narrative | Performed At | + + + | [facility] | [place] | | Department [address] [facility] | [facility] | | [ rep [address]] [ rep [facility] | | [facility]] Signed | - IMAGING | | | | | Patient Name: DEVIN FISCHER Physician: | | | KIMANI : 1945 Age: 68 Sex: M Unit #: [id number] | | | Exam Date: 04/06/13 Location: [facility] | | | Report #: [id number] Page: | | | %(RAD)RES..mtdd.print.filter("pg") of %(RAD) | | | RES..mtdd.print.filter("tpg") | | | | | | Accession Number: [id number] | | | EPIDURAL STEROID INJECTION, 04/06/2013 CLINICAL HISTORY: | | | ICD-9 CODE IS 724.4, LUMBAR RADICULOPATHY. | | | PROCEDURE: Mr. Devin Fischer presents to the fluoroscopy suite for | | | fluoroscopically-guided bilateral L3-L4 transforaminal epidural | | | steroid injections as part of conservative management for chronic pain | | | with lumbar radiculopathy and degenerative disk disease. After | | | informed consent was obtained, the patient laid in the prone | | | position on the fluoroscopy table. The areas were identified under | | | fluoroscopic guidance. The areas were prepped and draped in sterile | | | fashion. A 25-gauge 1.5-inch needle was inserted into each region | | | and approximately 3 mL of buffered 1% lidocaine was infused and a | | | 22-gauge spinal needle was inserted into the posterior superior | | | transforaminal space and advanced into the epidural space under | | | fluoroscopic guidance. Confirmation into the epidural space was | | | obtained with infusion of approximately 1 mL of Isovue contrast | | | which showed epidural flow as well as nerve sheath flow. Then, a | | | combination of 2 mL of 1% lidocaine and 2 mL of 6 mg/mL Celestone was | | | infused divided between the two sites. The patient tolerated the | | | procedure well without complications. Pre and post procedure blood | | | pressure was stable. The patient was given verbal as well as | | | written followup instructions and the patient reported no | | | significant change in pain symptoms post procedure. Prior | | | to the start of the procedure, the following were performed and | | | verified including correct patient identify, correct site/side | | | marked and visible, agreement on the procedure to be done, correct | | | patient positioning and accurate procedure consent form. Any safety | | | precautions based on clinical history and/or medication use has been | | | addressed. I personally performed the procedure above. | | | Dictated Date/Time: 04/06/2013 18:12 Transcribed | | | Date/Time: 04/06/2013 18:37 Clay Shop Supervisor: | | | <<Signature on File>> | | | Peter Cunha | | | MD Medina04/19/13 3935 <Electronically signed by Peter Cunha | | | [place] PERSON> Peter Haney MD 04/06/13 1812 | | | Clay Shop Supervisor: Mary Jane Oblokpdghxcvf22/08/13 5587 | | | | | + + + + + + + + | Performing | Address | City/State/Zipcode | Phone Number | | Organization | | | | + + + + + | [facility] [address] | [address] | [place] | [phone] | | [facility] | | [address] | | | - IMAGING | | | | + + + + + documented in this encounter Visit Diagnoses Not on filedocumented in this encounter
--- OUTSIDE RECORDS SUMMARY | ~2020-06-17 | XMS | Encounter Summary ---
Demographics + + + | Address | [address] | | | [place] [address] | + + + | Home Phone | | + + + | Preferred Language | Unknown | + + + | Marital Status | | + + + | Zoroastrianism Affiliation | 1013 | + + + | Race | White | + + + | Ethnic Group | Not or | + + + Author + + + | Author | [facility] | | | and [place] | + + + | Organization | [facility] | | | [...] [place] | | | | | [address] | | + + + + + | Mason Fleming | ECON | Unknown | | + + + + + Care Team Providers + +------+ + | Care Loading Unit Operator Seating Name | Role | Phone | + +------+ + | Michael Grijalva | PCP | | | MD | | | + +------+ + Encounter Details +--------+ + + + + | Date | Type | Department | Care Team | Description | +--------+ + + + + | 07/15/ | Orders Only | [facility] | Joshua Jorge MD | Lumbar radiculopathy | | 2017 | | NEUROSURGERY [address] | [address] | (Primary Dx); | | | | [address] | [place] [address] | Spinal stenosis, | | | | [place], [place] | [phone] | lumbar region, with | | | | [address] | | neurogenic | | | | [phone] | | claudication; | | | | | | Degenerative disc | | | | | | disease lumbar | | | | | | spine; Midline low | | | | | | back pain with | | | | | | sciatica, sciatica | | | | | | laterality | | | | | | unspecified, | | | | | | unspecified | | | | | | chronicity; DDD | | | | | | (degenerative disc | | | | | | disease), lumbar; | | | | | | OSTEOARTHRITIS, | | | | | | LUMBOSACRAL SPINE; | | | | | | Infantile idiopathic | | | | | | scoliosis of lumbar | | | | | | region; Scoliosis | | | | | | of lumbar spine, | | | | | | unspecified | | | | | | scoliosis type; | | | | | | Thyroid disease; | | | | | | Essential | | | | | | hypertension, | | | | | | benign; S/P lumbar | | | | | | fusion; | | | | | | Hypertension, | | | | | | unspecified type | +--------+ + + + + Social [...] as of this encounter Plan of Treatment + +------+--------+ + + | Name | Type | Priori | Associated Diagnoses | Order Schedule | | | | ty | | | + +------+--------+ + + | BUN | Lab | Routin | Lumbar | 1 Occurrences | | | | e | radiculopathy | starting 07/15/2017 | | | | | Spinal stenosis, | until 07/15/2018 | | | | | lumbar region, with | | | | | | neurogenic | | | | | | claudication | | | | | | Degenerative disc | | | | | | disease lumbar spine | | | | | | Midline low back | | | | | | pain with sciatica, | | | | | | sciatica laterality | | | | | | unspecified, | | | | | | unspecified | | | | | | chronicity DDD | | | | | | (degenerative disc | | | | | | disease), lumbar | | | | | | OSTEOARTHRITIS, | | | | | | LUMBOSACRAL SPINE | | | | | | Infantile idiopathic | | | | | | scoliosis of lumbar | | | | | | region Scoliosis | | | | | | of lumbar spine, | | | | | | unspecified | | | | | | scoliosis type | | | | | | Thyroid disease | | | | | | Essential | | | | | | hypertension, benign | | | | | | S/P lumbar fusion | | | | | | Hypertension, | | | | | | Unspecified Type | | + +------+--------+ + + | Creatinine | Lab | Routin | Lumbar | 1 Occurrences | | | | e | radiculopathy | starting 07/15/2017 | | | | | Spinal stenosis, | until 07/15/2018 | | | | | lumbar region, with | | | | | | neurogenic | | | | | | claudication | | | | | | Degenerative disc | | | | | | disease lumbar spine | | | | | | Midline low back | | | | | | pain with sciatica, | | | | | | sciatica laterality | | | | | | unspecified, | | | | | | unspecified | | | | | | chronicity DDD | | | | | | (degenerative disc | | | | | | disease), lumbar | | | | | | OSTEOARTHRITIS, | | | | | | LUMBOSACRAL SPINE | | | | | | Infantile idiopathic | | | | | | scoliosis of lumbar | | | | | | region Scoliosis | | | | | | of lumbar spine, | | | | | | unspecified | | | | | | scoliosis type | | | | | | Thyroid disease | | | | | | Essential | | | | | | hypertension, benign | | | | | | S/P lumbar fusion | | | | | | Hypertension, | | | | | | Unspecified Type | | + +------+--------+ + + documented as of this encounter Visit Diagnoses + + | Diagnosis | + + | Lumbar radiculopathy - Primary Thoracic or lumbosacral neuritis or radiculitis, | | unspecified | + + | Spinal stenosis, lumbar region, with neurogenic claudication | + + | Degenerative disc disease lumbar spine Degeneration of lumbar or lumbosacral | | intervertebral disc | + + | Midline low back pain with sciatica, sciatica laterality unspecified, unspecified | | chronicity | + + | DDD (degenerative disc disease), lumbar Degeneration of lumbar or lumbosacral | | intervertebral disc | + + | OSTEOARTHRITIS, LUMBOSACRAL SPINE Lumbosacral spondylosis without myelopathy | + + | 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
--- OUTSIDE RECORDS SUMMARY | ~2020-06-17 | XMS | Encounter Summary ---
Demographics + + + | Address | [address] | | | [place] [address] | + + + | Home Phone | | + + + | Preferred Language | Unknown | + + + | Marital Status | | + + + | Synagogue Affiliation | 1013 | + + + | Race | White | + + + | Ethnic Group | Not or | + + + Author + + + | Author | [facility] | | | and [place] | + + + | Organization | [facility] | | [...] [place] | | | | | [address] | | + + + + + | Mason Fleming | ECON | Unknown | | + + + + + Care Team Providers + +------+ + | Care Dial Equipment Engineer Name | Role | Phone | + +------+ + PCP | Unavailable | + +------+ + Encounter Details +--------+ + + + + | Date | Type | Department | Care Team | Description | +--------+ + + + + | 12/21/ | Hospital | [facility] | Peter Haney | | | 2011 | Encounter | MED CTR XRAY [address] | | | | | [place] | [place], [place] | | | | | [place] [address] | [address] | | | | | [phone] | | | +--------+ + + + [...] + + | FL EPIDURAL STEROID | | 12/22/2011 | | Results for this | | INJECTION LUMBAR | | 12:47 PM | | procedure are in the | | TRANSFORAMINAL | | PDT | | results section. | + +--------+ + + + documented in this encounter Results FL SHIRLEY Lumbar Transforaminal (12/22/2011 12:47 PM PDT) + + | Specimen | + + | | + + + + + | Narrative | Performed At | + + + | [facility] Diagnostic [facility] Department | [facility] | | [address] [place] [facility] | [facility] | | 12/22/2011, EPIDURAL STEROID | DIAG IMG | | INJECTIONS CLINICAL HISTORY: ICD-9 CODE IS 724.4, LUMBAR | | | RADICULITIS. Mr. Piter Fleming presents to the fluoroscopy suite | | | for fluoroscopically guided bilateral L3-L4 transforaminal epidural | | | steroid injections as part of conservative management for chronic | | | pain with lumbar radiculopathy and degenerative disk disease. | | | After informed consent was obtained the patient laid in the prone | | | position on the fluoroscopy table. The areas were identified under | | | fluoroscopic guidance. The areas were prepped and draped in sterile | | | fashion. A 25 gauge 1-1/2 inch needle was inserted into each | | | region and approximately 3 mL of buffered 1% lidocaine was infused. | | | Then a 22 gauge spinal needle was inserted into the posterior | | | superior transforaminal space and advanced into the epidural space | | | under fluoroscopic guidance. Confirmation into the epidural space | | | was obtained with the infusion of approximately 1 mL of Isovue | | | contrast which showed epidural flow as well as nerve sheath flow. | | | Then a combination of 2 mL of 1% lidocaine and 2 mL of 6 mg per | | | milliliter Celestone was infused divided between the two sides. | | | The patient tolerated the procedure well without complications. | | | Pre- and post procedure blood pressures were stable. The patient | | | was given verbal as well as written followup instructions. The | | | patient reported no significant change in pain symptoms post | | | procedure. Prior to the start of the procedure the following were | | | performed and verified including correct patient identity, correct | | | site/side marked and visible, agreement of the procedure to be done, | | | correct patient positioning and an accurate procedure consent form. | | | Any safety precautions based on clinical history and/or | | | medications have been addressed. I personally performed the | | | procedure above. Dictated Date/Time: 12/22/2011 17:52 | | | Transcribed Date/Time: 12/22/2011 18:19 Grades 1 Thru 6 Home Teacher: | | | <Electronically Signed by Peter Haney MD> 12/28/11 1127 | | + + + + + | Procedure Note | + + | Benito, Rad Conversion - 10/06/2013 5:11 PM [facility] | | Diagnostic Imaging Department | | [address] [facility] | | | | | | | | 12/22/2011, EPIDURAL STEROID INJECTIONS | | | | CLINICAL HISTORY: ICD-9 CODE IS 724.4, LUMBAR RADICULITIS. | | | | Mr. Piter Fleming presents to the fluoroscopy suite for fluoroscopically guided | | bilateral L3-L4 transforaminal epidural steroid injections as part of | | conservative management for chronic pain with lumbar radiculopathy and | | degenerative disk disease. After informed consent was obtained the patient | | laid in the prone position on the fluoroscopy table. The areas were identified | | under fluoroscopic guidance. The areas were prepped and draped in sterile | | fashion. A 25 gauge 1-1/2 inch needle was inserted into each region and | | approximately 3 mL of buffered 1% lidocaine was infused. Then a 22 gauge | | spinal needle was inserted into the posterior superior transforaminal space and | | advanced into the epidural space under fluoroscopic guidance. Confirmation | | into the epidural space was obtained with the infusion of approximately 1 mL of | | Isovue contrast which showed epidural flow as well as nerve sheath flow. Then | | a combination of 2 mL of 1% lidocaine and 2 mL of 6 mg per milliliter Celestone | | was infused divided between the two sides. The patient tolerated the procedure | | well without complications. Pre- and post procedure blood pressures were | | stable. The patient was given verbal as well as written followup instructions. | | The patient reported no significant change in pain symptoms post procedure. | | | | Prior to the start of the procedure the following were performed and verified | | including correct patient identity, correct site/side marked and visible, | | agreement of the procedure to be done, correct patient positioning and an | | accurate procedure consent form. Any safety precautions based on clinical | | history and/or medications have been addressed. | | | | I personally performed the procedure above. | | | | Dictated Date/Time: 12/22/2011 17:52 | | Transcribed Date/Time: 12/22/2011 18:19 | | Grades 1 Thru 6 Home Teacher: | | <Electronically Signed by Peter Haney MD> 12/28/11 1127 | + + + +---------+ + + | Performing | Address | City/State/Zipcode | Phone Number | | Organization | | | | + +---------+ + + | [facility] | | | | | [facility] | | | | + +---------+ + + documented in this encounter Visit Diagnoses Not on filedocumented in this encounter"
--- OUTSIDE RECORDS SUMMARY | ~2020-06-17 | XMS | Encounter Summary ---
Demographics + + + | Address | [address] | | | [place] [address] | + + + | Home Phone [...] | Author | [facility] | | | and [...] [place] | | | | | [address] | | + + + + + | Mason Fleming | ECON | Unknown | | + + + + + Care Team Providers + +------+ + | Care Towel Cabinet Repairer Name | Role | Phone | + +------+ + | Michael Grijalva | PCP | | | MD | | | + +------+ + Encounter Details +--------+ + + + + | Date | Type | Department | Care Team | Description | +--------+ + + + + | 08/11/ | Hospital | [facility] | Hollis Seaman, | Primary | | 2019 | Encounter | MED CTR PENNY XRAY | [address] | osteoarthritis of | | | | [address] [place] | [place]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 | | | | [place], [place] | [address] | | | | | [address] | | | | | | [phone] | | | +--------+ + + + [...] + + + +---------+ + + | Multiple | Take by mouth. | | 0 | | | | Vitamins-Minerals | | | | | 0 | | (MULTIVITAMIN ADULT | | | | | | | PO) | | | | [...] + +--------+ + + + | XR PELVIS 1 OR 2 VW | Routin | 08/11/2019 | Primary | Results for this | | | e | 10:49 AM | osteoarthritis of | procedure are in the | | | | PST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 | results section. | + +--------+ + + + documented in this encounter Results XR Pelvis 1 or 2 Vw (08/11/2019 10:49 AM PST) + + | Specimen | + + | | + + + + + | Impressions | Performed At | + + + | Bilateral hip osteoarthritis. Dictated and Signed by: Memo | [facility] | | MD Alejandro Electronically signed: 08/11/2019 1:42 PM | | + + + + + + | Narrative | Performed At | + + + | CLINICAL INFORMATION: RIGHT HIP PAIN TEMPLATING FILMS (PROSTHESIS | [facility] | | MEASURING). COMPARISON: None available. FINDINGS: AP view of | | | the pelvis. Severe right superior medial hip joint space | | | narrowing. Mild left superior medial hip joint space narrowing. No | | | acute osseous abnormality. Templating device overlying the right | | | hip. | | + + + + + | Procedure Note | + + | Benito, Rad Results In - 08/11/2019 1:46 PM PST CLINICAL INFORMATION: RIGHT HIP PAIN | | TEMPLATING FILMS (PROSTHESIS MEASURING). | | | | COMPARISON: None available. | | | | FINDINGS: | | AP view of the pelvis. | | | | Severe right superior medial hip joint space narrowing. Mild left superior | | medial hip joint space narrowing. No acute osseous abnormality. | | | | Templating device overlying the right hip. | | | | IMPRESSION: | | Bilateral hip osteoarthritis. | | | | Dictated and Signed by: Memo Allen MD | | Electronically signed: 08/11/2019 1:42 PM | + + + +---------+ + + | Performing | Address | City/State/Zipcode | Phone Number | | Organization | | | | + +---------+ + + | [facility] | | | | + +---------+ + + documented in this encounter Visit Diagnoses + + | Diagnosis | + + | Primary osteoarthritis of right hip Primary localized osteoarthrosis, pelvic region | | and thigh | + + documented in this encounter"
--- OUTSIDE RECORDS SUMMARY | ~2020-06-17 | XMS | Encounter Summary ---
Demographics + + + | Address | [address] | | | [place] [address] | + + + | Home Phone | | + + + | Preferred Language | Unknown | + + + | Marital Status | | + + + | Shinto Affiliation | 1013 | + + + | Race | White | + + + | Ethnic Group | Not or | + + + Author + + + | Author | [facility] | | | and [place] | + + + | Organization | [facility] | | | [...] [place] | | | | | [address] | | + + + + + | Mason Fleming | ECON | Unknown | | + + + + + Care Team Providers + +------+ + | Care Steward Racetrack Name | Role | Phone | + [...] | | | | | Primary | Bogdaalissa, | | | | | | osteoarthrit | Aleja, | | | | | | is of right | PA-C [address] | | | | | | hip | [address], | | | | | | Procedures | [address] | | | | | | [place] | [place] | | | | | | and/or Inj | [id number] | | | | | | Major Joint | Phone: | | | | | | Right | [phone] | | | | | | | Fax: | | | | | | | [phone] | | +--------+--------+ + + + + Diagnostic/Screening (Routine) +--------+--------+ + + + + | Status | Reason | Specialty | Diagnoses / | Referred By | Referred To | | | | | Procedures | Contact | Contact | +--------+--------+ + + + + | Closed | | Radiology | Diagnoses | | | | | | | Ischial | Bogdanowicz, | | | | | | bursitis of | Aleja, | | | | | | left side | PA-C [address] | | | | | | Procedures | [address], | | | | | | [place] | [address] | | | | | | and/or Inj | [place] | | | | | | Major Joint | [id number] | | | | | | Left | Phone: | | | | | | | [phone] | | | | | | | Fax: | | | | | | | [phone] | | +--------+--------+ + + + + Reason for Visit + + + | Reason | Comments | + + + | Hip Pain | Left buttocks pain | + + + Encounter Details +--------+---------+ + + + | Date | Type | Department | Care Team | Description | +--------+---------+ + + + | 02/16/ | Office | [facility] | Yarelisdavidhiren, | S/P lumbar fusion | | 2018 | Visit | PHYSIATRY [address] | MICHELLE Masterson [address] | (Primary Dx); | | | | [address] | [address], [address] | Ischial bursitis of | | | | [place], [place] | [place] [address] | left side; Primary | | | | [address] | [phone] | osteoarthritis of | | | | [phone] |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 | +--------+---------+ + + + Social History [...] + + + | Blood Pressure | 98/50 | 02/16/2018 9:20 AM | | | | | PDT | | + + + + + | Pulse | 43 | 02/16/2018 9:20 AM | | | | | PDT | | + + + + + | Temperature | - | - | | + + + + + | Respiratory Rate | - | - | | + + + + + | Oxygen Saturation | - | - | | + + + + + | Inhaled Oxygen | - | - | | | Concentration | | | | + + + + + | Weight | 119.7 kg (264 lb) | 02/16/2018 9:20 AM | | | | | PDT | | + + + + + | Height | 181.6 cm (5' 11.5") | 02/16/2018 9:20 AM | | | | | PDT | | + + + + + | Body Mass Index | 36.31 | 02/16/2018 9:20 AM | | | | | PDT | | + + + + + documented in this encounter Patient Instructions Patient Instructions Aleja Nicholson PA-C - 02/16/2018 9:20 AM PDTHave to start walki ng on a daily basis Have to strengthen gluteal muscles Bridges - bridges with ball between knees Deadbug exercises Mini lunges Clams - side lying Four way hip standing exercises with theraband - hip adduction, abduction, flexion, extensi on documented in this encounter Progress Notes Aleja Nicholson PA-C - 02/16/2018 9:20 AM PDTFormatting of this note might be differe nt from the original. CHIEF COMPLAINT: Chief Complaint Patient presents with Hip Pain Left buttocks pain HISTORY OF PRESENT ILLNESS: Piter Fleming is a 72 y.o. male being seen today in follow-up for complaints of low b ack pain/buttocks pain. He underwent a very extensive lumbar fusion in 2015. He underwent a bilateral SI joint injection with Dr. Haney 10/06/2017 and then in 11/09/2017 he has bridget ateral ischial tuberosity steroid injections. Both injections did help. He continues to gillis ve pain in the region of the "sitting bones" with prolonged sitting, left greater than right . And is experiencing a new clicking sensation to the right hip with standing, walking and turning. Today, Mr. Fleming rates his pain as 4 on a scale of 0-10. He indicates [...] Current Outpatient Prescriptions Medication Sig Dispense Refill cyclobenzaprine (FLEXERIL) 10 mg tablet Take 10 mg by mouth as needed. DHEA 50 MG TABS Take 100 mg by mouth. ergocalciferol (VITAMIN D-2) 50,000 units capsule Take [...] HEMATOLOGIC/LYMPHATIC: No abnormal bleeding PHYSICAL EXAMINATION: Vitals: 02/16/18 0920 BP: 98/50 Pulse: (!) 43 PainSc: 4 PainLoc: Hip Body mass index is 36.31 kg/m. GENERAL: [...] has no apparent deficits with short or buttermaker helper memory. He has appropriate fund of knowledge [...] Ankle Dorsiflexion 2 5 Plantarflexion 5 5 MUSCULOSKELETAL Decreased ROM to bilateral hips with internal and external rotation but wi th with right posterior buttocks discomfort. Weakness noted with heel walking; can not keep toes up on the right with heel walking. Weak ness with toe walking noted to right; unable to keep heel off the floor. No tenderness to trochanteric bursa region or sacroiliac region. Localizes maximum pain and tenderness to the left ischial tuberosity region and right hip/r egion. ASSESSMENT: 1. S/P lumbar fusion 2. Ischial bursitis of left side 3. Primary osteoarthritis of right hip PLAN: 1. Today Piter Fleming presents with [...] I encourag ed a home stretching regimen. Today we dicussed other conservative interventions that he may implement in an effort to re duce the development of Ischial tuberosity bursitis. This includes seating posture and use of cushions. 3. He continues to have chronic weakness, worse to the right lower extremity. He indicate s this has been chronic but not progressive since neurosurgical intervention. His other issu es including the prior lumbar fusion and low back pain were not addressed in detail today. 4. We discussed he really needs to start walking on a daily basis, plus strengthening his gluteus and pelvic region. He does work with a personal computer network engineer twice/week, I gave him name of exercises to do including bridges, bridges with ball between knees, hip 4-way standing e xercises - abduction, adduction, flexion, extension and clam shells. ELECTRONICALLY EDITED AND SIGNED BY: Aleja Nicholson PA-C documented in t his encounter Plan of Treatment Not on filedocumented as of this encounter Results [place] and/or Inj Major Joint Right (02/16/2018 12:51 PM PDT) + + | Specimen | + + | | + + + + + | Narrative | Performed At | + + + | 02/16/2018 | [facility] | | RIGHT INTRAARTICULAR HIP INJECTION CLINICAL HISTORY: ICD-10 CODE | | | M25.55, HIP PAIN. Piter Fleming presents to the fluoroscopy | | | suite for a fluoroscopically-guided right intraarticular hip injection | | | as part of conservative management for chronic pain and hip | | | arthropathy. After informed consent was obtained, the patient laid | | | in the supine position on the fluoroscopy table. The right | | | intertrochanteric line was located [...] + + | Performing | Address | City/State[facility] | Phone Number | | Organization | | | | + +---------+ + + | [facility] | | | | + +---------+ + + [place] and/or Inj Major Joint Left (02/16/2018 12:51 PM PDT) + + | Specimen | + + | | + + + + + | Narrative | Performed At | + + + | 02/16/2018 | [facility] | | Ischial Tuberosity Bursa Injection Diagnosis: Ischial Tuberosity | | | Bursitis Piter Fleming presents to the fluoroscopy suite for a | | | fluoroscopically guided left ischial tuberosity bursa steroid | | | injection as part of conservative management for chronic [...] Kenalog was infused. The | | | patient tolerated the procedure well without complications. Pre- and | | | post procedure blood pressures were stable. The patient was given | | | verbal as well as written followup instructions. Prior to the start | | | of the procedure the following were performed and verified including | | | correct patient identity, correct site/side marked and visible, | | | agreement on the procedure to be done, correct patient positioning and | | | an accurate procedure consent form. Any safety precautions based on | | | clinical history and/or medication use have been addressed. I | | | personally performed the procedure above. Estimated blood loss: [...] | |Anesthesia: Local 1% Lidocaine | | + + + + +---------+ [...] Primary Arthrodesis status | + + | Ischial bursitis of left side | + + | Primary osteoarthritis of right hip Primary localized osteoarthrosis, pelvic region | | and thigh | + + documented in this encounter
--- OUTSIDE RECORDS SUMMARY | ~2020-06-17 | XMS | Encounter Summary ---
Demographics + + + | Address | [address] | | | [place] [address] | + + + | Home Phone | | + + + | Preferred Language | Unknown | + + + | Marital Status | | + + + | Mandaen Affiliation | 1013 | + + + | Race | White | + + + | Ethnic Group | Not or | + + + Author + + + | Author | [facility] | | | and [place] | + + + | Organization | [facility] | | | [...] [place] | | | | | [address] | | + + + + + | Mason Fleming | ECON | Unknown | | + + + + + Care Team Providers + +------+ + | Care Converting Technician Name | Role | Phone | + +------+ + | Michael Grijalva | PCP | | | MD | | | + +------+ + Reason for Visit +---------+ + | Reason | Comments | +---------+ + | Post Op | 12w PO | +---------+ + Encounter Details +--------+---------+ + + + | Date | Type | Department | Care Team | Description | +--------+---------+ + + + | 12/30/ | Office | [facility] | Joshua Jorge MD | S/P lumbar fusion | | 2017 | Visit | NEUROSURGERY [address] | [address] | (Primary Dx) | | | | [address] [facility] [address] | [place] [address] | | | | | [place] | [phone] | | | | | [address] | | | | | | [phone] | | | +--------+---------+ + + + [...] + + + | Blood Pressure | 94/51 | 12/30/2016 10:33 AM | | | | | PDT | | + + + + + | Pulse | 59 | 12/30/2016 10:33 AM | | | | | PDT | | + + + + + | Temperature | - | - | | + + + + + | Respiratory Rate | 18 | 12/30/2016 10:33 AM | | | | | PDT | | + + + + + | Oxygen Saturation | - | - | | + + + + + | Inhaled Oxygen | - | - | | | Concentration | | | | + + + + + | Weight | 115.7 kg (255 lb) | 12/30/2016 10:33 AM | | | | | PDT | | + + + + + | Height | 185.4 cm (6' 1") | 12/30/2016 10:33 AM | | | | | PDT | | + + + + + | Body Mass Index | 33.64 | 12/30/2016 10:33 AM | | | | | PDT | | + + + + + documented in this encounter Progress Notes Joshua Jorge MD - 12/30/2016 4:47 PM PDTFormatting of this note might be different from kofi alvarado original. Joshua Jorge MD [address] [facility], [address] [place] [address] FAX: NEUROSURGERY FOLLOW-UP CHIEF COMPLAINT: Chief Complaint Patient presents with Post Op 12w PO HISTORY OF PRESENT ILLNESS: The patient is a 71 y.o. male that had a lumbar fusion for ry k pain and radicular symptoms around 3 months ago. He returns and overall is doing well. T jenny patient complains of weakness of the right foot but this was fairly severe after surgery and has continued to improve since his last visit. He is working with physical therapy on a personal training and is walking over a mile. The patient has been walking as much as dir ected. The patient has had no issues with his surgical site. CURRENT MEDICATIONS: Current Outpatient Prescriptions Medication Sig Dispense Refill BETAMETHASONE Take by mouth as needed. cyclobenzaprine (FLEXERIL) 10 mg tablet Take 1 tablet by mouth every 6 hours as needed for Muscle spasms. 90 tablet 2 DHEA 50 MG TABS Take 100 mg [...] capsule Take 150 mg by mouth Daily. lactulose 10 g/15 mL solution Take 30 mLs by mouth Daily as needed. 240 mL 3 LevOCARNitine L-Tartrate (L-CARNITINE) 500 MG CAPS Take 500 mg by mouth Daily. levothyroxine (LEVOTHROID) 200 mcg tablet Take 175 mcg by mouth Daily. levothyroxine (SYNTHROID, LEVOTHROID) 175 MCG tablet lisinopril (PRINIVIL, ZESTRIL) 10 mg tablet Take [...] cause a rash Oxycodone Rash REVIEW OF SYSTEMS GENERALLY: No fever, no night sweats, no anemia, no fatigue, no recent profound weight ch anges. EYES: No eye problems, no use of corrective lenses, no eye injury, no double vision, no bl indness. EARS, NOSE, AND THROAT: No changes in taste or smell, no hearing difficulty, no ringing in the ears, no ear drainage, no dizziness, no voice changes, no difficulty swallowing, no sig nificant snoring, + sleep apnea, no sinus problems, no major dental work. NEUROLOGICALLY: Please see the review of systems discussed above in the history of present illness. In addition, the patient has numbness and pain of legs, weakness, muscle aching, change in walk, pain in back, tremor/shaking.. PSYCHIATRIC: + depression, no sleep disorders, no anxiety, no bipolar disorder, no psychot ic episodes. CARDIOVASCULAR: No heart attacks, no heart murmur, no heart fluttering, no chest pain, + a nkle swelling. LUNG DISEASE: No shortness of breath, no cough, no tuberculosis, no bloody cough, no asth ma, no emphysema/COPD. GASTROINTESTINAL: No bowel disease, no nausea or vomiting, no rectal bleeding, no constipa tion, no stool incontinence, no liver disease, no gallbladder disease, no abdominal pain, no ulcers. KIDNEY DISEASE: No urinary frequency, no painful or difficult urination, no incontinence. ENDOCRINE: No diabetes, + thyroid disease, no osteopenia or osteoporosis, no breast draina ge. SKIN: No breast lumps, no skin changes, no rashes, no itches. HEMATOLOGIC/LYMPHATIC: No enlarged lymph nodes, no easy or unusual bleeding, no personal h istory of cancer. RHEUMATOLOGIC: + joint arthritis, no rheumatoid arthritis. SOCIAL HISTORY: The patient reports that he quit smoking about 36 years ago. He has never used smokeless t obacco. He reports that he drinks alcohol. He reports that he does not use illicit drugs. INTERIM PHYSICAL EXAMINATION: Blood pressure 94/51, pulse 59, resp. rate 18, height 1.854 m (6' 1"), weight 115.667 kg (2 55 lb). Body mass index is 33.65 kg/(m^2). GENERAL: Piter Fleming is in no acute distress with unlabored respirations. SPINE: The patient s incisions are healing well without drainage, significant erythema, o r discharge. EXTREMITIES: No lower extremity edema. NEUROLOGICAL EXAMINATION: MENTAL STATUS: The patient is awake, alert, and oriented. He follows simple and complex commands MOTOR EXAM: Motor strength is 4/5 in right foot dorsiflexion and EHL. SENSORY EXAM: The sensory examination is improved when compared to the preoperative exam. RADIOGRAPHIC REVIEW: The patient s x-rays show stable instrumentation and alignment and were reviewed with the patient today. There have been no interval changes since the immediate postoperative films . Complete fusion has not yet occurred, but this is normal and would not be expected at thi s time. ASSESSMENT: Encounter Diagnosis Name Primary? S/P lumbar fusion Yes Past Medical History Diagnosis Date Hx of gastric bypass High cholesterol Kidney stones Neuropathy (HCC) Hands and Feet ERRONEOUS ENCOUNTER--DISREGARD 05/07/2015 Lumbar stenosis Benign localized hyperplasia of prostate with urinary obstruction Chronic pain syndrome Cystitis, subacute Dermatitis due to drugs and medicines taken internally Dermatitis, eczematoid Essential tremor Flank pain Folliculitis Hematuria Nephrolithiasis Nontraumatic rupture of bicep tendon, right Right rupture rotator cuff complete Sciatica Osteoarthrosis, localized, primary, knee, right Spinal stenosis, lumbar Postgastrectomy syndrome Dumping syndrome Depression Major depressive disorder, recurrent, in partial remission (HCC) Thyroid disease Primary hypothyroidism Essential hypertension, benign Asthma, intrinsic Sleep apnea PLAN: Overall, the patient is doing fairly well. Some of the preoperative symptoms are improved. He needs to continue rehab to improve his leg. I increased the patient s activities now allowing a 30 pound lifting restriction that can be gradually increased to an as tolerated limit. The patient should increase range of antonio on activities as tolerated. They should continue regular exercise and strengthening with th e hope that they can avoid additional surgery. The patient needs to follow-up in 6 months with x-rays for re-evaluation. ELECTRONICALLY SIGNED BY: Joshua Jorge MD, 12/30/2016 16:47 documented in this encou nter Plan of Treatment Not on filedocumented as of this encounter Results XR Lumbar Spine 2 or 3 Vw (12/30/2016 10:23 AM PDT) + + | Specimen | + + | | + + + + + | Narrative | Performed At | + + + | XR LUMBAR SPINE 2 OR 3 VW 12/30/2016 10:21 AM HISTORY: post op | [facility] | | follow up. COMPARISON: Multiple priors. FINDINGS: Again | [facility] | | visualized are hardware for posterior fusion from L1 through S1 with | [facility] | | spacer hardware at L2-3 through L4-5. A left lateral screw is seen of | [facility] | | L4. The hardware are intact. There is mild right curvature of the | | | thoracolumbar spine. Extensive spondylosis is present. Bone | | | mineralization is normal. Vertebral body height are preserved with no | | | evidence for compression fractures. Mild disc narrowing are at L1-2 | | | and L5-S1. Facet joints are intact. Visualized ribs and pelvic | | | osseous structures show no acute findings. Mild atherosclerosis is | | | seen. IMPRESSION - Stable posterior fusion from L1 through S1. | | | Dictated and Signed by: Chema Dee MD Electronically signed: | | | 12/30/2016 12:16 PM | | + + + + + | Procedure Note | + + | Benito, Rad Results In - 12/30/2016 12:20 PM PDT XR LUMBAR SPINE 2 OR 3 VW 12/30/2016 | | 10:21 AMHISTORY: post op follow up.COMPARISON: Multiple priors.FINDINGS:Again visualized | | are hardware for posterior fusion from L1 through S1 withspacer hardware at L2-3 | | through L4-5. A left lateral screw is seen of L4. Thehardware are intact. There is mild | | right curvature of the thoracolumbar spine.Extensive spondylosis is present. Bone | | mineralization is normal. Vertebral bodyheight are preserved with no evidence for | | compression fractures. Mild discnarrowing are at L1-2 and L5-S1. Facet joints are | | intact. Visualized ribs andpelvic osseous structures show no acute findings. Mild | | atherosclerosis is seen.IMPRESSION -Stable posterior fusion from L1 through S1.Dictated | | and Signed by: Chema Dee MD Electronically signed: 12/30/2016 12:16 PM | |Extensive spondylosis is present. Bone mineralization is normal. Vertebral body | |height are preserved with no evidence for compression fractures. Mild disc | |narrowing are at L1-2 and L5-S1. Facet joints are intact. Visualized ribs and | |pelvic osseous structures show no acute findings. Mild atherosclerosis is seen. | | | |IMPRESSION - | |Stable posterior fusion from L1 through S1. | | | |Dictated and Signed by: Chema Dee MD | | Electronically signed: 12/30/2016 12:16 PM | + + + + + + + | Performing | Address | City/State/Zipcode | Phone Number | | Organization | | | | + + + + + | [facility] | [address] | [place] | [phone] | | [facility] | | [address] | | | - [facility]AG[facility] | | | | + + + + + documented in this encounter Visit Diagnoses + + | Diagnosis | + + | S/P lumbar fusion - Primary Arthrodesis status | + + documented in this encounter
--- OUTSIDE RECORDS SUMMARY | ~2020-06-17 | XMS | Encounter Summary ---
Demographics + + + | Address | [address] | | | [place] [address] | + + + | Home Phone | | + + + | Preferred Language | Unknown | + + + | Marital Status | | + + + | Rastafarian Affiliation | 1013 | + + + | Race | White | + + + | Ethnic Group | Not or | + + + Author + + + | Author | [facility] | | | and [place] | + + + | Organization | [facility] | | [...] [place] | | | | | [address] | | + + + + + | Mason Fleming | ECON | Unknown | | + + + + + Care Team Providers + +------+ + | Care Terminal Manager Name | Role | Phone | + +------+ + | Michael Grijalva | PCP | | | MD | | | + +------+ + Encounter Details +--------+ + + + + | Date | Type | Department | Care Team | Description | +--------+ + + + + | 03/09/ | Hospital | [facility] | Joshua Jorge MD | Lumbar | | 2013 | Encounter | MED CTR XRAY [address] | [address] | radiculopathy; | | | | [place] | [place] [address] | Spinal stenosis of | | | | [place] [address] | [phone] | lumbar - worst at | | | | [phone] | | the L2-L3 and L3-L4 | [...] 0 | 05/13/20 | | | (D3-50) [id number] UNITS | week. | | | 12 [...] + +--------+ + + + | XR SPINE SURVEY 2 OR | Routin | 03/09/2014 | Lumbar | Results for this | | 3 VIEWS | e | 11:26 AM | radiculopathy | procedure are in the | | | | PDT | Spinal stenosis of | results section. [...] | | | | L2 to S1. BACK | | | | | | PAIN, LUMBAR | | | | | | OSTEOARTHRITIS, | | | | | | LUMBOSACRAL SPINE | | + +--------+ + + + documented in this encounter Results XR Spine Survey AP [...] + | Pj Oliver Results In - 03/09/2014 3:46 PM PDT [...] + | MISCELLANEOUS LAB | | | [phone] | + +---------+ + + | MISCELANIOUS LAB | | | [phone] | + +---------+ + + documented in this encounter Visit Diagnoses + + | Diagnosis | + + | Lumbar radiculopathy Thoracic or lumbosacral neuritis or radiculitis, unspecified | + + | Spinal stenosis [...]
--- OUTSIDE RECORDS SUMMARY | ~2020-06-17 | XMS | Encounter Summary ---
Demographics + + + | Address | [address] | | | [place] [address] | + + + | Home Phone | | + + + | Preferred Language | Unknown | + + + | Marital Status | | + + + | Evangelical Affiliation | 1013 | + + + | Race | White | + + + | Ethnic Group | Not or | + + + Author + + + | Author | [facility] | | | and [place] | + + + | Organization | [facility] | | | [...] [place] | | | | | [address] | | + + + + + | Mason Fleming | ECON | Unknown | | + + + + + Care Team Providers + +------+ + | Care Online Advertising Analyst Name | Role | Phone | + [...] [facility] | | | | | Lumbar | [place], | [address] | | | | | radiculopath | Peter Cunha MD | [place], | | | | | y | [address] | [place] | | | | | Procedures | [place] | [address] | | | | | [place] INJECT | [place], [place] | Phone: | | | | | ANES/STEROID | [address] | [phone] | | | | | FORAMEN | Phone: | Fax: | | | | | LUMBAR/SACRA | [phone] | [phone] | | | | | L W IMG | Fax: | | | | | | GUIDE ,1 | [phone] | | | | | | [place] | | | | | | | TRIAMCINOLON | | | | | | | E ACET INJ | | | | | | | NOS, 10 MG | | | | | | | APPT TODAY- | | | | | | | Bilat L3-4 | | | | | | | TFEIS | | | +--------+--------+ + + + + Encounter Details +--------+ + + + + | Date | Type | Department | Care Team | Description | +--------+ + + + + | 01/21/ | Hospital | [facility] | Lyn, | Spinal stenosis of | | 2015 | Encounter | MED CTR XRAY [address] | MICHELLE Masterson [address] | lumbar - worst at | | | | [place] | [facility] [address] | the L2-L3 and L3-L4 | | | | [place] [address] | [place] [address] | levels. This would | | | | [phone] | [phone] | be classified as | | | | | | severe.; Lumbar | | | | | [facility], [facility] | radiculopathy; | | | | | [place] | Degenerative disc | | | | | | disease lumbar spine | | | | | | - he has | | | | | | degenerative changes | | | | | | at every level from | | | | | | L2 to S1. | +--------+ + + + + Social [...] +---------+ + + | Blood Pressure | 136/70 | 01/22/2016 3:38 PM | | | | | PDT | | + +---------+ + + | Pulse | - | - | | + [...] + +---------+ + + | gabapentin | 2 tablets PO nightly | 180 | 4 | 09/25/19 | | | (NEURONTIN) 300 mg | for neuropathic | capsule | | 16 | 7 | | capsule | pain | | | | | + + + +---------+ + + | | Take 1 tablet by | | 0 | | | | HYDROcodone-acetamin | mouth every 6 hours | | | | 6 | | ophen (NORCO) 10-325 | as [...] +---------+ + + | oxyCODONE | Take 30 mg by mouth | | 0 | | | | (ROXICODONE) 30 MG | every 4 hours as | | | | 6 | | immediate release | needed for Pain. | | | | | | tablet | | | | | | + + + +---------+ + + | sertraline | Take 100 mg by mouth | | 0 | | | | (ZOLOFT) 100 mg | Daily. | | | | 7 | | tablet | | | | [...] | FL EPIDURAL STEROID | Routin | 01/22/2016 | Spinal stenosis of | Results for this | | INJECTION LUMBAR | e | 3:42 PM | lumbar - worst at | procedure are in the | | TRANSFORAMINAL | | PDT | the L2-L3 and L3-L4 | results section. | | | | | levels. This would | | | | | | be classified as | | | | | | severe. Lumbar | | | | | | radiculopathy | | | | | | Degenerative disc | | | | | | disease lumbar spine | | | | | | - he has | | | | | | degenerative changes | | | | | | at every level from | | | | | | L2 to S1. | | + +--------+ + + + documented in this encounter Results FL SHIRLEY Lumbar Transforaminal (01/22/2016 3:42 PM PDT) + + | Specimen | + + | | + + + + + | Narrative | Performed At | + + + | 01/22/2016 Bilateral Transforaminal Epidural Steroid Injections | [facility] | | Diagnosis: Lumbar radiculopathy ICD-10 Code M54.16 [address] | [facility] | | Damir Fleming presents to the fluoroscopy suite for [facility] | | fluoroscopically-guided bilateral L3-L4 transforaminal epidural | - IMAGING | | steroid injections as part of conservative management for chronic | | | pain with lumbar radiculopathy and degenerative disk disease. After | | | informed consent was obtained, the patient lay in the prone position | | | on the fluoroscopy table. The areas were identified under | | | fluoroscopic guidance. The areas were prepped and draped in sterile | | | fashion. A 25-gauge, 1.5-inch needle was inserted [...] | + + + + + | [facility] | [address] | [place] | [phone] | | [facility] | | [address] | | | - IMAGING | | | | + + + + + documented in this encounter Visit Diagnoses + + | Diagnosis | + + | Spinal stenosis of lumbar - worst at the L2-L3 and L3-L4 levels. This would be | | classified as severe. 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 Degeneration of lumbar or lumbosacral intervertebral disc | + + documented in this encounter Administered Medications + +--------+ +-------+------+------+ | Medication Order | MAR | Action | Dose | Rate | Site | | | Action | Date | | | | + +--------+ +-------+------+------+ | betamethasone (CELESTONE | Given | 01/22/20 | 12 mg | | | | SOLUSPAN) injection 12 mg 12 mg, | | 16 3:50 | | | | | Other, EVERY 24 HOURS INTERVAL, | | PM PDT | | | | | First dose on Wed01/22/16 at | | | | | | | 1600, For 2 doses, Shake well. | | | | | | | Not for IV use., Radiology | | | | | | + +--------+ +-------+------+------+ +---+---+ | | | +---+---+ + +-------+ +-------+---+---+ | iohexol (OMNIPAQUE 300) 300 | Given | 05/25/20 | 2 mLs | | | | mg/mL injection 2 mL 2 mL, | | 16 3:48 | | | | | Other, ONCE PRN, Other, Starting | | PM PDT | | | | | 01/22/16 at 1538, For 1 dose, | | | | | | | Radiology | | | | | | + +-------+ +-------+---+---+ +---+---+ | | | +---+---+ + +-------+ +-------+---+---+ | lidocaine (PF) 1% injection 2 | Given | 01/22/20 | 2 mLs | | | | mL 2 mL, Other, ONCE, Wed | | 16 3:50 | | | | | 01/22/16 at 1600, For 1 dose, | | PM PDT | | | | | Radiology | | | | | | + +-------+ +-------+---+---+ +---+---+ | | | +---+---+ + +-------+ +-------+---+ + | lidocaine buffered 1% injection | Given | 01/22/20 | 6 mLs | | Other | | 6 mL 6 mL, Intradermal, ONCE, | | 16 3:45 | | | (Comment | | 01/22/16 at 1600, For 1 dose, | | PM PDT | | | ) | | Radiology | | | | | | + +-------+ +-------+---+ + +---+---+ | | | +---+---+ documented in this encounter"
--- OUTSIDE RECORDS SUMMARY | ~2020-06-17 | XMS | Encounter Summary ---
Demographics + + + | Address | [address] | | | [place] [address] | + + + | Home Phone | | + + + | Preferred Language | Unknown | + + + | Marital Status | | + + + | Zoroastrianism Affiliation | 1013 | + + + | Race | White | + + + | Ethnic Group | Not or | + + + Author + + + | Author | [facility] | | | and [place] | + + + | Organization | [facility] | | | and [...] [place] | | | | | [address] | | + + + + + | Mason Fleming | ECON | Unknown | | + + + + + Care Team Providers + +------+ + | Care Teaching Fellow Name | Role | Phone | + +------+ + | Michael Grijalva | PCP | | | MD | | | + +------+ + Reason for Visit +---------+ + | Reason | Comments | +---------+ + | Post Op | 12W PO | +---------+ + Encounter Details +--------+---------+ + + + | Date | Type | Department | Care Team | Description | +--------+---------+ + + + | 11/10/ | Office | [facility] | Jun Stout | S/P lumbar fusion | | 2017 | Visit | NEUROSURGERY [address] | [address] | (Primary Dx); Facet | | | | [address] [place], [place] | arthropathy, lumbar; | | | | [place], [place] | [address] | Scoliosis of lumbar | | | | [address] | | spine, unspecified | | | | [phone] | | scoliosis type; Flat | | | | | | back syndrome, | | | | | | acquired; Lumbar | | | | | | radiculopathy | +--------+---------+ + + + Social History [...] + + + | Blood Pressure | 92/57 | 11/10/2016 9:57 AM | | | | | PDT | | + + + + + | Pulse | 59 | 11/10/2016 9:57 AM | | | | | PDT [...] Weight | 115.7 kg (255 lb) | 11/10/2016 9:57 AM | | | | | PDT | | + + + + + | Height | 185.4 cm (6' 1") | 11/10/2016 9:57 AM | | | | | PDT | | + + + + + | Body Mass Index | 33.64 | 11/10/2016 9:57 AM | | | | | PDT | | + + + + + documented in this encounter Patient Instructions Patient Instructions Jun Stout PA-C - 11/10/2016 10:52 AM PDTAt this time you m ay increase your activities allowing lifting up to 25 pounds. You may begin increasing your range of motion activities and begin weaning your lumbar brace. SPINE BRACE WEANING PROTOCOL (5 WEEKS) Below are instructions for weaning your brace. You can move through the weeks slower if yo u feel the need to do so, but the overall goal is to get you out of the brace slowly over th e next several weeks. WEEK 1 If you have been using your brace for activities like sleeping, showering, do not use the b race for these activities any longer but continue using it for everything else. WEEK 2 Stop wearing your brace for sitting and short distance walking. You should use the brace f or anything more involved. WEEK 3 Stop using the brace for medium distance walking. You can bend and twist your back but sti ll proceed slowly with these activities. WEEK 4 Stop using the brace for everything but the most difficult tasks. You should now be able to go on long walks and lift more weight as directed. Add more bending and twisting as tolera [place]. WEEK 5 Stop using the brace for daily use. I would encourage you to use the brace in the future f or activities that you know might aggravate your back or cause pain. 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 Eduardo pascual signed by Jun Stout PA-C at 11/10/2016 10:52 AM PDT documented in this encounter Progress Notes Jun Stout PA-C - 11/10/2016 10:03 AM PDTFormatting of this note might be differ ent from the original. Jun Stout PA-C [address] [facility] [address] [place], [place] [address] FAX: NEUROSURGERY FOLLOW-UP CHIEF COMPLAINT: Chief Complaint Patient presents with Post Op 12W PO HISTORY OF PRESENT ILLNESS: The patient is a 71 y.o. male that had a lumbar fusion for ry k pain and radicular symptoms around 3 months ago. He returns and overall is doing okay. T he patient complains of continued leg edema, back discomfort as well as some weakness of the right foot. This is continued to improve since his last visit. He is working with [employer] on a personal training and is walking close to about a mile. The patient has bee n walking as much as directed. The patient has had no issues with his surgical site. CURRENT MEDICATIONS: Current Outpatient Prescriptions Medication Sig Dispense Refill BETAMETHASONE Take by mouth as needed. cephalexin (KEFLEX) 500 mg capsule cyclobenzaprine (FLEXERIL) 10 mg tablet Take 1 [...] tablet Take 10 mg by mouth Daily. morphine (MS CONTIN) 30 mg ER tablet Take 1 tablet by mouth every 12 hours. 30 tablet 0 multivitamin (THERAGRAN) per tablet Take 1 tablet by mouth daily potassium chloride (KLOR-CON) 10 mEq CR tablet primidone (MYSOLINE) 50 mg tablet Take 4 by mouth daily at bedtime for 5 days then incr ease to 5 by mouth daily at bedtime for tremors sertraline (ZOLOFT) 100 mg tablet Take 100 mg by mouth Daily. tamsulosin (FLOMAX) 0.4 mg CAPS Take 0.4 [...] illicit drugs. INTERIM PHYSICAL EXAMINATION: Blood pressure 92/57, pulse 59, height 1.854 m (6' 1"), weight 115.667 kg (255 lb). Body ma ss index is 33.65 kg/(m^2). GENERAL: Piter Fleming is in no acute distress with unlabored respirations. SPINE: The patient s incisions are healing well without drainage, significant erythema, o r discharge. EXTREMITIES: No lower extremity edema. NEUROLOGICAL EXAMINATION: MENTAL STATUS: The patient is awake, alert, and oriented. He follows simple and complex commands MOTOR EXAM: Motor strength is 4/5 in right foot. This has improved from his last visit. SENSORY EXAM: The sensory examination is improved [...] expected at thi s time. ASSESSMENT: Encounter Diagnoses Name Primary? S/P lumbar fusion Yes Facet arthropathy, lumbar Scoliosis of lumbar spine, unspecified scoliosis type Flat back syndrome, acquired Lumbar radiculopathy Past Medical History Diagnosis Date Hx of [...] Overall, the patient is doing fairly well. He continues to have some improvement although swelling and weakness in his foot have continued. She is working with his primary care prov ider regarding his swelling. I increased the patient s activities 25-30. The patient should increase range of motion activities as tolerated. I would like the patient to advance slowly with this process and d iscussed this at length during today's visit. I would also like the patient to continue wit h postoperative rehabilitation and to advance with therapy as tolerated. I am hoping to see improvement over the coming weeks to months and plan to continue to foll ow this patient. The patient will follow-up in clinic in around 8 weeks for re-evaluation. 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
--- OUTSIDE RECORDS SUMMARY | ~2020-06-17 | XMS | Encounter Summary ---
Demographics + + + | Address | [address] | | | [place] [address] | + + + | Home Phone | | + + + | Preferred Language | Unknown | + + + | Marital Status | | + + + | Buddhist Affiliation | CAT | + + + | Race | Unknown | + + + | Ethnic Group | Other Race | + + + Author + + + | Author | [facility] | + + + | Organization | [facility] | + + + | Address | Unknown | + + + | Phone | Unavailable | + + + Support +---------+ +---------+ + | Name | Relationship | Address | Phone | +---------+ +---------+ + | Unk Unk | ECON | Unknown | Unavailable | +---------+ +---------+ + Care Team Providers + +------+ + | Care Malt House Operator Name | Role | Phone | + +------+ + | Unknown | PCP | Unavailable | + +------+ + Encounter Details +--------+ + + + + | Date | Type | Department | Care Team | Description | +--------+ + + + + | 03/19/ | MyChart | Neurology Movement | Ines Mensah S, | | | 2019 | Encounter | Disorders Clinic at | MD [address] | | | | | [facility] | [address] [place], | | | | | and Healing [address] | [place] [address] | | | | | [address] [facility] | [phone] | | | | | Health and Healing, | | | | | | [facility] | | | | | | [place], [place] | | | | | | [address] | | | | | | [phone] | | | +--------+ + + + + Social History + + + +--------+------+ | Tobacco Use | Types | Packs/Day | Years | Date | | | | | Used | | + + + +--------+------+ | Former Smoker | Cigarettes | | 15 | | + + + +--------+------+ + +---+---+---+ | Smokeless Tobacco: | | | | | Never Used | | | | + +---+---+---+ + + +---------+ + | Alcohol Use | Drinks/Week | oz/Week | Comments | + + +---------+ + | Not Currently | | | | + + +---------+ [...]
--- OUTSIDE RECORDS SUMMARY | ~2020-06-17 | XMS | Encounter Summary ---
Demographics + + + | Address | [address] | | | [place] [address] | + + + | Home Phone | | + + + | Preferred Language | Unknown | + + + | Marital Status | | + + + | Sikh Affiliation | 1013 | + + + | Race | White | + + + | Ethnic Group | Not or | + + + Author + + + | Author | Formerly [facility] | | | and [place] | + + + | Organization | [facility] | | [...] [place] | | | | | [address] | | + + + + + | Mason Fleming | ECON | Unknown | | + + + + + Care Team Providers + +------+ + | Care External Relations Director Name | Role | Phone | [...] Closed | | Radiology | Diagnoses | [place], | | | | | | Ischial | Efraní PA-C | | | | | | bursitis of | [address] | | | | | | left side | [address] | | | | | | Ischial | [address] | | | | | | bursitis of | [place], | | | | | | right side | [place] [address] | | | | | | Procedures | Phone: | | | | | | FL Asp | [phone] | | | | | | and/or Inj | Fax: | | | | | | Major Joint | [phone] | | | | | | Right | | | +--------+--------+ + + + + Diagnostic/Screening (Routine) +--------+--------+ + + + + | Status | Reason | Specialty | Diagnoses / | Referred By | Referred To | | | | | Procedures | Contact | Contact | +--------+--------+ + + + + | Closed | | Radiology | Diagnoses | [place], | | | | | | Ischial | MICHELLE Kenny | | | | | | bursitis of | [address] | | | | | | left side | [address] | | | | | | Ischial | [address] | | | | | | bursitis of | [place], | | | | | | right side | [place] [address] | | | | | | Procedures | Phone: | | | | | | FL Asp | [phone] | | | | | | and/or Inj | Fax: | | | | | | Major Joint | [phone] | | | | | | Left | | | +--------+--------+ + + + + Reason for Visit + + + | Reason | Comments | + + + | Follow-up | Same Day: left ischial tuberosity | + + + Follow Up (Routine) +--------+--------+ + + + + | Status | Reason | Specialty | Diagnoses / | Referred By | Referred To | | | | | Procedures | Contact | Contact | +--------+--------+ + + + + | Closed | | Physical | Diagnoses | Valentine, | [place], | | | | Medicine and | Back pain | Michael | Peter Cunha MD | | | | Rehabilitatio | Gluteal | MD Cliff | [address] | | | | n | tendonitis | [address] [place] | | | | | of right | Monique Kenyon | [place] | | | | | buttock | [place], | [address] Phone: | | | | | Ischial | [place] | [phone] | | | | | bursitis of | [address] | Fax: | | | | | left side | Phone: | [phone] | | | | | Thoracic | [phone] | | | | | | spine pain | Fax: | | | | | | Right hip | [phone] | | | | | | pain | | | | | | | Z:Follow up | | | | | | | hip pain, | | | | | | | post february | | | | | | | injections* | | | | | | | Procedures | | | | | | | OFFICE | | | | | | | VISIT | | | | | | | REGULAR | | | +--------+--------+ + + + + Encounter Details +--------+---------+ + + + | Date | Type | Department | Care Team | Description | +--------+---------+ + + + | 05/02/ | Office | [facility] | Efraín Turk, | S/P lumbar fusion | | 2020 | Visit | PHYSIATRY [address] | PA-C [address] | (Primary Dx); | | | | [address] | [address] [place] | Ischial bursitis of | | | | [place], [place] | [place] [address] | left side; Ischial | | | | [address] | [phone] | bursitis of right | | | | [phone] | | side; Lumbar | | | | | | radiculopathy; | | | | | | Sacroiliitis, not | | | | | | elsewhere classified | | | | | | ([facility]) | +--------+---------+ + + + Social History [...] + + + | Blood Pressure | 124/74 | 05/02/2020 11:46 AM | | | | | PDT | | + + + + + | Pulse | 54 | 05/02/2020 11:46 AM | | | | | PDT | | + + + + + | Temperature | 36.4 C (97.5 F) | 05/02/2020 11:46 AM | | | | | PDT [...] + + + + | Weight | 117.9 kg (260 lb) | 05/02/2020 11:46 AM | | | | | PDT | | + + + + + | Height | 185.4 cm (6' 1") | 05/02/2020 11:46 AM | | | | | PDT | | + + + + + | Body Mass Index | 34.3 | 05/02/2020 11:46 AM | | | | | PDT | | + + + + + documented in this encounter Progress Notes Efraín Turk PA-C - 05/02/2020 11:45 AM PDTFormatting of this note might be different fro m the original. Efraín Turk PA-C [address] [facility] [place] [address] [place] [address] FAX: CHIEF COMPLAINT: Chief Complaint Patient presents with Follow-up Same Day: left ischial tuberosity x 4 weeks HISTORY OF PRESENT ILLNESS: Piter Fleming is a 75 y.o. male being seen today in follow-up for complaints of low b ack pain. The patient has been seen for this complaint in the past. Previously it was recom mended that he have ischial bursa injections. He reports that the treatment was effective f or 3 months. Patient reports approximately 75% relief since receiving injection on date: 01/29. Patient reports that since injection they have improved functionality. Patient reports that since injection they have decreased use of medication for pain/radicular symptoms. Overall the patient reports that the symptoms are worsening. He rates the pain as moderate . He describes the pain as aching, tingling, throbbing, pinching, or soreness. His symptom s worsen with walking and sitting on hard surface. His symptoms improve with rest. The patient does not describe numbness of the leg(s). He does not report weakness of the leg(s). He does not have bowel and bladder dysfunction. He does not have saddle anesthesi a. Treatments for these complaints have included PT, injections, medications, chiropractic. Patient's medications, allergies, past medical, surgical, social and family histories were reviewed and updated as appropriate. CURRENT MEDICATIONS: Current Outpatient Medications Medication Sig Dispense Refill buprenorphine (SUBUTEX) [address] 8 mg under the tongue. 3-4 tabs daily clobetasol (TEMOVATE) 0.05% cream cyclobenzaprine (FLEXERIL) 10 mg tablet Take 10 mg by mouth as needed. DHEA 50 MG TABS Take 100 mg by mouth Daily. docusate sodium (COLACE) 100 MG capsule Take 200 mg by mouth 2 times daily. 60 capsule 0 ergocalciferol (VITAMIN D-2) 50,000 units capsule Take 50,000 Units by mouth Once a wee k. escitalopram (LEXAPRO) 20 mg tablet Take 40 mg by mouth Daily. finasteride (PROSCAR) 5 mg tablet Take 5 mg by mouth Daily. fluocinonide (LIDEX) 0.05 % ointment two times a day furosemide (LASIX) 20 mg tablet Take 20 mg by mouth as needed for Edema (For ankle swel ling). gabapentin (NEURONTIN) 300 mg capsule TAKE 2 TABLETS BY MOUTH NIGHTLY FOR NEUROPATHIC P AIN (Patient taking differently: Take 600 mg by mouth 3 times daily.) 180 capsule 4 iron polysaccharides (NU-IRON) 150 MG capsule Take 150 mg by mouth Daily. LevOCARNitine L-Tartrate (L-CARNITINE) 500 MG CAPS Take 500 mg by mouth Daily. levothyroxine (SYNTHROID) 175 mcg tablet Take 175 mcg by mouth every morning (before br eakfast). lisinopril (PRINIVIL, ZESTRIL) 10 mg tablet Take 10 mg by mouth Daily. multivitamin (THERAGRAN) per tablet Take 1 tablet by mouth daily oxyCODONE (ROXICODONE) 5 mg tablet Take 1-3 tablets by mouth every 3 hours as needed fo r Pain. exempt 60 tablet 0 potassium chloride (KLOR-CON) 10 mEq CR tablet Take 10 mEq by mouth as needed. primidone (MYSOLINE) 50 mg tablet Take 4 by mouth daily at bedtime for 5 days then incr ease to 5 by mouth daily at bedtime for tremors (Patient taking differently: Take 50 mg by m outh nightly. Five tablets at night) rivaroxaban (XARELTO) 10 mg tablet Take 1 tablet by mouth Daily. 14 tablet 0 tamsulosin (FLOMAX) 0.4 mg CAPS Take 0.4 mg by mouth Daily. (Patient taking differently : Take 0.8 mg by mouth nightly.) theophylline (UNIPHYL) 400 MG 24 hr tablet Take 400 mg by mouth Daily. vitamin B-12 (CYANOCOBALAMIN) 1000 MCG tablet Take 1,000 mcg by mouth Daily. No current facility-administered medications for this visit. 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 Social History Socioeconomic History Marital status: Spouse name: Not on file Number of children: 2 Years of education: 14+ Highest education level: Not on file Occupational History Comment: Retired Social Needs Financial resource strain: Not on file Food insecurity Worry: Not on file Inability: Not on file Transportation needs Medical: Not on file Non-medical: Not on file Tobacco Use Smoking status: Former Smoker Packs/day: 1.00 Years: 16.00 Pack years: 16.00 Quit date: 08/30/1980 Years since quittin.6 Smokeless tobacco: Never Used Substance and Sexual Activity Alcohol use: Yes Alcohol/week: 0.0 standard drinks Comment: Rarely/Socially Drug use: No Sexual activity: Yes Comment: Rarely Lifestyle Physical activity Days per week: Not on file Minutes per session: Not on file Stress: Not on file Relationships Social connections Talks on phone: Not on file Gets together: Not on file Attends moravian service: Not on file Active member of club or organization: Not on file Attends meetings of clubs or organizations: Not on file Relationship status: Not on file Intimate partner violence Fear of current or ex partner: Not on file Emotionally abused: Not on file Physically abused: Not on file Forced sexual activity: Not on file Other Topics Concern Not on file Social History Narrative Not on file Review of Systems Constitutional: Negative for chills, diaphoresis, fever, malaise/fatigue and weight loss. Musculoskeletal: Positive for back pain and joint pain. Negative for falls, myalgias and ne ck pain. PHYSICAL EXAMINATION: Height 1.854 m (6' 1"), weight 117.9 kg (260 lb). Body mass index is 34.3 kg/m. GENERAL: The patient is well developed and well nourished. He does not appear uncomfortabl e when seated. HEENT: Normocephalic and atraumatic. Normal sclerae without icterus. NECK (ANTERIOR): There is no apparent cervical lymphadenopathy or thyromegaly. PULMONARY: The patient is in no acute respiratory distress with unlabored respirations. CARDIOVASCULAR: There is not lower extremity edema. ABDOMEN: Non-distended. SKIN: Limited skin exam shows no significant rashes or lesions. NEUROLOGIC: The patient is awake, alert, and oriented. He follows simple and complex commands. His speech is fluent. He comprehends speech well. He has no apparent deficits with short or salvage determiner memory. The cranial nerves appear grossly intact. Sensory exam does not show diminished sensation to light touch in the leg(s). MUSCULOSKELETAL : Straight leg raise and slump-sit are negative. Memo's maneuver and impingement testing were negative for any groin pain. There was no tenderness to palpation over the greater trochanters or sacral sulci. The patient localized the majority of the pain to the ischial bursa region. Lumbar facet loading was negative. Strength testing showed 5/5 strength throughout the lower extremities. The patient was able to heel and toe walk without difficulty. There was no redness, effusion, warmth or joint line tenderness in the knees or ankles. RADIOGRAPHIC REVIEW: MRI lumbar spine from 12/2018 shows the fusion changes L1-S1. There is a disc protrusion le ft of midline at T12-L1. He does appear to have some continued foraminal stenosis on the ri ght at L5-S1. Right hip xray 2019: moderate hip OA and bursitic changes. ASSESSMENT: Encounter Diagnoses Name Primary? S/P lumbar fusion Yes Ischial bursitis of left side Ischial bursitis of right side Lumbar radiculopathy Sacroiliitis, not elsewhere classified (HCC) PLAN: 1) Today we discussed the patient's differential diagnosis with the likely primary issue be ing buttock pain, hand numbness, failed back syndrome. Patient's description of symptoms, ph ysical exam, and imaging suggest this diagnosis at this time. 2) I counseled patient on treatment options which included conservative self management usi ng OTC NSAIDs/Ice and heat packs, physical therapy, prescription medications, epidural stero id injection, neuromodulation devices, as well as possible surgical intervention. 3) Imaging: As descibed above in radiology review. 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 Unfortunately Piter Richardson continues to have significant discomfort. It appears to me that the pain is prim arily coming from left ischial bursa. I did feel that Piter Fleming would be a good candidate for SCS trial however his med [facility] care is complicated right now with a recent right hip replacement with Dr. Seaman and a [facility] referral for tremors that he would like to complete before considering SCS. 5) I did feel patient would be a good candidate for an interventional procedure and have or dered left ischial bursa injection to be done today. 6) If current treatment plan is insufficient for symptom relief we could try spinal cord st imulator as the next therapy option. I spent 20 minutes in visit with Piter Fleming today with the majority of time spent counselling the patient on his diagnosis, options for his care, and coordinating his care. ELECTRONICALLY SIGNED BY: Efraín Turk PA-C, 05/02/2020 documented in this en counter Plan of Treatment Not on filedocumented as of this encounter Results [place] Asp and/or Inj Major Joint Right (05/02/2020 1:26 PM PDT) + + | Specimen | + + | | + + + + -+ | Narrative | Performed At | + + -+ | 05/02/2020 | [facility] | | Ischial Tuberosity Bursa Injection Diagnosis: Ischial Tuberosity | | | Bursitis Piter Fleming presents to the fluoroscopy suite for a | | | fluoroscopically guided right ischial tuberosity bursa steroid | | | injection as part of conservative management for chronic pain and | | | ischial tuberosity bursitis. After informed consent was obtained the | | | patient laid in the prone position on the fluoroscopy table. The | | | ischial tuberosity was identified under fluoroscopic guidance. The | | | area was prepped and draped in sterile fashion. A 25 gauge 1-1/2 inch | | | needle was inserted into this region and approximately 3 mL of | | | buffered 1% lidocaine was infused. The needle was then inserted down | | | to the ischial tuberosity bursa under fluoroscopic guidance. | | | Confirmation into the appropriate location was obtained with infusion | | | of approximately 1 mL of Omnipaque contrast which showed flow within | | | the bursa. Then a combination of 1 mL 1% lidocaine and 1 mL of 40 mg | | | per milliliter Kenalog was infused. The patient tolerated the | | | procedure well without complications. Pre- and post procedure blood | | | pressures were stable. The patient was given verbal as well as written | | | followup instructions. Prior to the start of the procedure the | | | following were performed and verified including correct patient | | | identity, correct site marked and visible, agreement of the procedure | | | to be done, correct patient positioning and an accurate procedure | | | consent form. Any safety precautions based on clinical history and/or | | | medication use have been addressed. I personally performed the | | | procedure above. Estimated blood loss: MinimalComplications: | | | NoneFindings: As expectedAnesthesia: Local 1% Lidocaine | | |positioning and an accurate procedure consent form. Any safety precautions | | |based on clinical history and/or medication use have been addressed. | | | | | |I personally performed the procedure above. | | | | | |Estimated blood loss: Minimal | | |Complications: None | | |Findings: As expected | | |Anesthesia: Local 1% Lidocaine | | | | | + + -+ + +---------+ + + | Performing | Address | City/State/Zipcode | Phone Number | | Organization | | | | + +---------+ + + | [facility] | | | | + +---------+ + + [place] Asp and/or Inj Major Joint Left (05/02/2020 1:26 PM PDT) + + | Specimen | + + | | + + + + -+ | Narrative | Performed At | + + -+ | 05/02/2020 | [facility] | | Ischial Tuberosity [...] table. The | | | ischial tuberosity was identified under fluoroscopic guidance. The | | | area was prepped and draped in sterile fashion. A 25 gauge 1-1/2 inch | | | needle was inserted into this region and approximately 3 mL of | | | buffered 1% lidocaine was infused. The needle was then inserted down | | | to the ischial tuberosity bursa under fluoroscopic guidance. | | | Confirmation into the appropriate location was obtained with infusion | | | of approximately 1 mL of Omnipaque contrast which showed flow within | | | the bursa. Then a combination of 1 mL 1% lidocaine and 1 mL of 40 mg | | | per milliliter Kenalog was infused. The patient tolerated the | | | procedure well without complications. Pre- and post procedure blood | | | pressures were stable. The patient was given verbal as well as written | | | followup instructions. Prior to the start of the procedure the | | | following were performed and verified including correct patient | | | identity, correct site marked and visible, agreement of the procedure | | | to be done, correct patient positioning and an accurate procedure | | | consent form. Any safety precautions based on clinical history and/or | | | medication use have been addressed. I personally performed the | | | procedure above. Estimated blood loss: MinimalComplications: | | | NoneFindings: As expectedAnesthesia: Local 1% Lidocaine | | |positioning and an accurate procedure consent form. Any safety precautions | | |based on clinical history and/or medication use have been addressed. | | | | | |I personally performed the procedure above. | | | | | |Estimated blood loss: Minimal | | |Complications: None | | |Findings: As expected | | |Anesthesia: Local 1% Lidocaine | | | | | + + -+ + +---------+ + + | Performing | [...] of left side | + + | Ischial bursitis of right side | + + | Lumbar radiculopathy Thoracic or lumbosacral neuritis or radiculitis, unspecified | + + | Sacroiliitis, not elsewhere classified (HCC) Sacroiliitis, not elsewhere classified | + + documented in this encounter
--- OUTSIDE RECORDS SUMMARY | ~2020-06-17 | XMS | Encounter Summary ---
Demographics + + + | Address | [address] | | | [place] [address] | + + + | Home Phone | | + + + | Preferred Language | Unknown | + + + | Marital Status | | + + + | Baptism Affiliation | 1013 | + + + | Race | White | + + + | Ethnic Group | Not or | + + + Author + + + | Author | [facility] | | | and [place] | + + + | Organization | [facility] | | | [...] [place] | | | | | [address] | | + + + + + | Mason Fleming | ECON | Unknown | | + + + + + Care Team Providers + +------+ + | Care Sales Agent Insurance Name | Role | Phone | + [...] | Lumbar | [place], | [address] | | | | | radiculopath | Peter Cunha MD | [place], | | | | | y | [address] | [place] | | | | | Procedures | [place] | [address] | | | | | [place] INJECT | [place], [place] | Phone: | | | | | ANES/STEROID | [address] | [phone] | | | | | FORAMEN | Phone: | Fax: | | | | | LUMBAR/SACRA | [phone] | [phone] | | | | | [address] IM[address] | Fax: | | | | | | GUIDE ,1 | [phone] | | | | | | LEVEL MA | | | | | | | TRIAMCINOLON | | | | | | | E ACET INJ | | | | | | | NOS, 10 MG | | | | | | | APPT TODAY- | | | | | | | `Kassie L3-4 | | | | | | | TFESI | | | +--------+--------+ + + + + Encounter Details +--------+ + + + + | Date | Type | Department | Care Team | Description | +--------+ + + + + | 09/25/ | Hospital | [facility] | Lyn, | Spinal stenosis of | | 2015 | Encounter | MED CTR XRAY [address] | MICHELLE Masterson [address] | lumbar - worst at | | | | [place] | [facility] [address] | the L2-L3 and L3-L4 | | | | [place] [address] | [place] [address] | levels. 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 | | | | | + + [...] | [place] EPIDURAL STEROID | Routin | 09/25/2015 | Spinal stenosis of | Results for this | | INJECTION LUMBAR | e | 2:53 PM | lumbar - worst at | procedure are in the | | TRANSFORAMINAL | | PST | the L2-L3 and L3-L4 | results [...] | | | | L2 to S1. Midline | | | | | | low back pain with | | | | | | sciatica, sciatica | | | | | | laterality | | | | | | unspecified | | + +--------+ + + + documented in this encounter Results FL SHIRLEY Lumbar Transforaminal (09/25/2015 2:53 PM PST) + + | Specimen | + + | | + + + + + | Narrative | Performed At | + + + | 09/25/2015 Bilateral Transforaminal Epidural Steroid Injections | [facility] | | Diagnosis: Lumbar radiculopathy ICD-10 Code M54.16 Piter | [facility] | | Damir Fleming presents to the fluoroscopy suite for [facility] | | fluoroscopically-guided bilateral L3-L4 transforaminal epidural [...] | + + + + + | [facility] | [address] | [place] | [phone] | | [facility] | | [address] | | | - IMAGING | | [...] lumbosacral intervertebral disc | + + | Midline low back pain with sciatica, sciatica laterality unspecified | + + documented in this encounter Administered Medications + +--------+ +-------+------+ + | Medication Order | MAR | Action | Dose | Rate | Site | | | Action | Date | | | | + +--------+ +-------+------+ + | betamethasone (CELESTONE | Given | 09/25/19 | 12 mg | | Other | | SOLUSPAN) injection 12 mg 12 mg, | | 16 2:52 | | | (Comment | | Intramuscular, EVERY 24 HOURS | | PM PST | | | ) | | INTERVAL, First dose on Wed | | | | | | | 09/25/15 at 1515, For 2 doses, | | | | | | | Shake well. Not for IV use., | | | | | | + +--------+ +-------+------+ + +---+---+ | | | +---+---+ + +-------+ +-------+---+---+ | iohexol (OMNIPAQUE 300) 300 | Given | 09/25/19 | 4 mLs | | | | mg/mL injection 4 mL 4 mL, | | 16 2:52 | | | | | INTRATHECAL, ONCE, 09/25/15 at | | PM PST | | | | | 1515, For 1 dose | | | | | | + +-------+ +-------+---+---+ +---+---+ | | | +---+---+ + +-------+ +-------+---+ + | lidocaine 1% injection 5 mL 5 | Given | 09/25/19 | 5 mLs | | Other | | mL, Intradermal, ONCE, Wed | | 16 3:15 | | | (Comment | | 09/25/15 at 1515, For 1 dose | | PM PST | | | ) | + +-------+ +-------+---+ + +---+---+ | | | +---+---+ + +-------+ +-------+---+---+ | sodium bicarbonate (NEUT) 4% | Given | 09/25/19 | 2 mLs | | | | injection 2 mL 2 mL, Topical, | | 16 2:51 | | | | | ONCE, 09/25/15 at 1515, For 1 | | PM PST | | | | | dose | | | | | | + +-------+ +-------+---+---+ +---+---+ | | | +---+---+ documented in this encounter"
--- OUTSIDE RECORDS SUMMARY | ~2020-06-17 | XMS | Encounter Summary ---
Demographics + + + | Address | [address] | | | [place] [address] | + + + | Home Phone | | + + + | Preferred Language | Unknown | + + + | Marital Status | | + + + | Orthodox Affiliation | 1013 | + + + | Race | White | + + + | Ethnic Group | Not or | + + + Author + + + | Author | [facility] | | | and [place] | + + + | Organization | [facility] | | | and [...] [place] | | | | | [address] | | + + + + + | Mason Fleming | ECON | Unknown | | + + + + + Care Team Providers + +------+ + | Care Foot Press Operator Name | Role | Phone | + +------+ + PCP | Unavailable | + +------+ + Encounter Details +--------+ + + + + | Date | Type | Department | Care Team | Description | +--------+ + + + + | 03/15/ | Hospital | [facility] | Conversion | Right knee pain | | 2011 | Encounter | [facility] MRI [address] | Transaction, | | | | | [address] | Provider Unknown | | | | | [facility] [place] | [phone] | | | | | [address] | | | | | | [phone] | | | +--------+ + + + [...] | + +--------+ + + + | MRI KNEE RIGHT WO | Routin | 03/15/2012 | | Results for this | | CONTRAST | e | 12:03 PM | | procedure are in the | | | | PDT | | results section. | + +--------+ + + + documented in this encounter Results MRI Knee Right wo Contrast (03/15/2012 12:03 PM PDT) + + | Specimen | + + | | + + + + + | Narrative | Performed At | + + + | Melissa knee protocol for surgical purposes only. No professional | | | dictation will be given. Read by Yair Portillo MD on | | | 03/21/2012 10:52 AM | | + + + + + | Procedure Note | + + | Pj Oliver Conversion - 04/22/2019 5:37 AM PDT Melissa knee protocol for surgical | | purposes only. No professional dictation will be given. Read by Yair Portillo MD | | on 03/21/2012 10:52 AM | | 2:28 PM | | | + + documented in this encounter Visit Diagnoses + + | Diagnosis | + + | Right knee pain Pain in joint, lower leg | + + documented in this encounter"
--- OUTSIDE RECORDS SUMMARY | ~2020-06-17 | XMS | Encounter Summary ---
Demographics + + + | Address | [address] | | | [place] [address] | + + + | Home Phone | | + + + | Preferred Language | Unknown | + + + | Marital Status | | + + + | Uatsdin Affiliation | 1013 | + + + | Race | White | + + + | Ethnic Group | Not or | + + + Author + + + | Author | [facility] | | | and [place] | + + + | Organization | [facility] | | [...] [place] | | | | | [address] | | + + + + + | Mason Fleming | ECON | Unknown | | + + + + + Care Team Providers + +------+ + | Care Tool And Die Technician Name | Role | Phone | + +------+ + | Michael Grijalva | PCP | | | MD | | | + +------+ + Reason for Visit + +--------+ + | Reason | Onset | Comments | | | Date | | + +--------+ + | Medication Refill | 10/01/ | | | | 2016 | | + +--------+ + Encounter Details +--------+--------+ + + + | Date | Type | Department | Care Team | Description | +--------+--------+ + + + | 10/01/ | Refill | [facility] | Joshua Jorge MD | Medication Refill | | 2016 | | NEUROSURGERY [address] | | | | | [address] | [place] [address] | | | | | [place] | [phone] | | | | | [address] | | | | | | [phone] | | | +--------+--------+ + + + Social History + +-------+ [...] Telephone Encounter - Delilah Schneider RN - 10/05/2016 1:18 PM PSTPharmacist from [facility] called with concern that patient has filled 120 tablets on 09/04/16, 09/17/16, 7, and has brought Rx picked up today in to fill 10/05/16. Advised pharmacist that patient gillis d requested Rx for trip and he has been advised that he may not fill sooner than 10 days. El ectronically signed by Delilah Schneider RN at 10/05/2016 1:22 PM PSTTelephone Encounter - Lexi Butt - 10/05/2016 11:39 AM PSTPatient picked up Rx, ID verified with copy in Epi c elephone Encounter - Delilah Cleveland RN - 10/05/2016 8:41 AM PSTLeft message to notify patient Rx ready to machine pecan picker. elephone Encount er - Jun Stout PA-C - 10/05/2016 8:21 AM PSTapproved elephone Encounter - Delilah Schneider RN - 10/01/2016 5:17 PM PSTMedication Refill Request Procedure: L2-3, L3-4, L4-5 Lateral Anterior Interbody Fusion, L5-S1 Transforaminal Lumbar Interbody Fusion, L3-4 Decompression Date of Surgery: 08/10/2016 Date of Next Office Visit: 11/10/2016 Medication requested: Hydrocodone- acetaminophen 10-325 mg Do you have a pain contract with any providers: No Are you receiving pain medication prescriptions from any other providers: No Current intake: 6-10 tablets daily depending on the day and if pain wakes him at night Date of last refill: 09/26/2016 # of tabs left/or when will patient run out of this medication: Patient will be out of pain medication before return from trip to [place] to see grandchildren. He plans to take Rx w ith him and fill when needed. Where is pain located? Type of pain (constant, intermittent, sharp, dull)? : Morning pain i s worse; right leg still swelling; buttocks to thigh through knee, braga, foot nerve pain. I nside of braga tender to touch; Laying down relieves pain Send in the mail or call in to preferred pharmacy? Patient will be coming to 10/05/16 and requests to machine pecan picker Rx at that time. Please approve/ deny Rx. elephone Encounter - Elizabeth Hunt - 10/01/2016 4:00 PM PSTPatient called back again. elephone Encounter - Lexi Chandler - 10/01/2016 3:56 PM PSTPatient called returning Delilah's call. Patient would like a call back. elepho ne Encounter - Delilah Schneider RN - 10/01/2016 3:35 PM PSTMedication Refill Request Procedure: L2-3, L3-4, L4-5 Lateral Anterior Interbody Fusion, L5-S1 Transforaminal Lumba r Interbody Fusion, L3-4 Decompression Date of Surgery: 08/10/2016 Date of Next Office Visit: 11/10/2016 Medication requested: Hydrocodone- acetaminophen 10-325 mg Do you have a pain contract with any providers: No Are you receiving pain medication prescriptions from any other providers: No Current intake: Date of last refill: # of tabs left/or when will patient run out of this medication: Where is pain located? Type of pain (constant, intermittent, sharp, dull)? : Send in the mail or call in to preferred pharmacy? Patient will be coming to [place] 10[place]/16 and requests to machine pecan picker Rx at that time. Left message (on both #'s) for patient to return call to provide missing information to pro cess refill request e elder Encounter - Rere Mcgowan - 10/01/2016 2:39 PM PSTPatient called in requestin marcella a refill for HYDROcodone-acetaminophen (NORCO) 10-325 mg. Patient usually has the script m jessica to his home, but he will be in town on Wednesday and will be able to pick it up in the of fice. Please advise do cumented in this encounter Plan of Treatment Not on filedocumented as of this encounter Visit Diagnoses + + | Diagnosis | + + | S/P lumbar fusion - Primary Arthrodesis status | + + documented in this encounter"
--- OUTSIDE RECORDS SUMMARY | ~2020-06-17 | XMS | Encounter Summary ---
Demographics + + + | Address | [address] | | | [place] [address] | + + + | Home Phone | | + + + | Preferred Language | Unknown | + + + | Marital Status | | + + + | Mu-Ism Affiliation | 1013 | + + + | Race | White | + + + | Ethnic Group | Not or | + + + Author + + + | Author | [facility] | | | and [...] [place] | | | | | [address] | | + + + + + | Mason Fleming | ECON | Unknown | | + + + + + Care Team Providers + +------+ + | Care Hot Wound Spring Production Supervisor Name | Role | Phone | + +------+ + | Michael Grijalva | PCP | | | MD | | | + +------+ + Encounter Details +--------+ + + + + | Date | Type | Department | Care Team | Description | +--------+ + + + + | 10/05/ | Hospital | [facility] | Hollis Seaman, | History of total hip | | 2019 | Encounter | MED [facility] | [address] | arthroplasty, right | | | | [address] [place] | [place] | | | | | [place] | [address] | | | | | [address] | | | | | | [phone] | | | +--------+ + + + [...] + + + +---------+ + + | clobetasol | | | 0 | 09/22/19 | | | (TEMOVATE) 0.05% | | | | 20 | | | cream | | | | | | + [...] 1 OR 2 VW | Routin | 10/05/2019 | History of total | Results for this | | | e | 11:14 AM | hip arthroplasty, | procedure are in the | | | | PST | right | results section. | + +--------+ + + + documented in this encounter Results XR Pelvis 1 or 2 Vw (10/05/2019 11:14 AM PST) + + | Specimen | + + | | + + + + + | Impressions | Performed At | + + + | Intact right hip arthroplasty. Dictated and Signed by: Dandy Gilbert [facility] | | MD Ashleigh Electronically signed: 10/05/2019 3:09 PM | | + + + + + + | Narrative | Performed At | + + + | XR PELVIS 1 OR 2 VW 10/05/2019 11:14 AM HISTORY: s/p right CHRISTIE. | [facility] | | COMPARISON: 09/05/2022 FINDINGS: There is hardware for right hip | | | arthroplasty that is intact with no evidence for loosening. Mild left | | | hip degenerative changes. Bone mineralization is normal. Visualized | | | pelvis demonstrates no acute findings. Soft tissue structures are | | | unremarkable. | | + + + + + | Procedure Note | + + | Benito, Rad Results In - 10/05/2019 3:12 PM PST XR PELVIS 1 OR 2 VW 10/05/2019 11:14 AM | | | | HISTORY: s/p right CHRISTIE. | | | | COMPARISON: 09/05/2022 | | | | FINDINGS: | | There is hardware for right hip arthroplasty that is intact with no evidence for | | loosening. Mild left hip degenerative changes. Bone mineralization is normal. | | Visualized pelvis demonstrates no acute findings. Soft tissue structures are | | unremarkable. | | | | IMPRESSION: | | Intact right hip arthroplasty. | | | | Dictated and Signed by: Dandy Sotelo MD | | Electronically signed: 10/05/2019 3:09 PM | + + + +---------+ + + | Performing | Address | City/State/Zipcode | Phone Number | | Organization | | | | + +---------+ + + | [facility] | | | | + +---------+ + + documented in this encounter Visit Diagnoses + + | Diagnosis | + + | History of total hip arthroplasty, right | + + documented in this encounter"
--- OUTSIDE RECORDS SUMMARY | ~2020-06-17 | XMS | Encounter Summary ---
Demographics + + + | Address | [address] | | | [place] [address] | + + + | Home Phone | | + + + | Preferred Language | Unknown | + + + | Marital Status | | + + + | Hinduism Affiliation | 1013 | + + + | Race | White | + + + | Ethnic Group | Not or | + + + Author + + + | Author | [facility] | | | and [place] | + + + | Organization | [facility] | | | [...] [place] | | | | | [address] | | + + + + + | Mason Fleming | ECON | Unknown | | + + + + + Care Team Providers + +------+ + | Care Toy Parts Former Supervisor Name | Role | Phone | + +------+ + PCP | Unavailable | + +------+ + Encounter Details +--------+ + + + + | Date | Type | Department | Care Team | Description | +--------+ + + + + | 09/24/ | Hospital | [facility] | Peter Haney | | | 2010 | Encounter | MED CTR XRAY [address] | | | | | [place] | [address] [place], [place] | | | | | [place] [address] | [address] | | | | | [phone] | | | +--------+ + + + [...]
--- OUTSIDE RECORDS SUMMARY | ~2020-06-17 | XMS | Encounter Summary ---
Demographics + + + | Address | [address] | | | [place] [address] | + + + | Home Phone | | + + + | Preferred Language | Unknown | + + + | Marital Status | | + + + | Jewish Affiliation | 1013 | + + + | Race | White | + + + | Ethnic Group | Not or | + + + Author + + + | Author | [facility] | | | and [...] [place] | | | | | [address] | | + + + + + | Mason Fleming | ECON | Unknown | | + + + + + Care Team Providers + +------+ + | Care Lumber Trimmer Name | Role | Phone | + +------+ + | Michael Grijalva | PCP | | | MD | | | + +------+ + Reason for Visit + + + | Reason | Comments | + + + | Back Pain | Low back pain | + + + Encounter Details +--------+---------+ + + + | Date | Type | Department | Care Team | Description | +--------+---------+ + + + | 03/29/ | Office | [facility] | Peter Haney | BACK PAIN, LUMBAR | | 2012 | Visit | PHYSIATRY [address] | (Primary Dx); | | | | [address] | [address] [place] | Degenerative disc | | | | [place] | [address] | disease lumbar spine | | | | [address] | | - he has | | | | [phone] | | degenerative changes | | | | | | at every level from | | | | | | L2 to S1.; Spinal | | | | | | stenosis of lumbar - | | | | | | worst at the L2-L3 | | | | | | and L3-L4 levels. | | | | | | This would be | | | | | | classified as | | | | | | severe.; | | | | | | OSTEOARTHRITIS, | | | | | | LUMBOSACRAL SPINE; | | | | | | Peripheral | | | | | | neuropathy; | | | | | | Scoliosis; Tremor, | | | | | | essential | +--------+---------+ + + + Social History [...] + + + | Blood Pressure | 101/49 | 03/29/2013 8:49 AM | | | | | PDT | | + + + + + | Pulse | 54 | 03/29/2013 8:49 AM | | | | | PDT [...] + + + + | Weight | 106.6 kg (235 lb) | 03/29/2013 8:49 AM | | | | | PDT | | + + + + + | Height | 186.7 cm (6' 1.5") | 03/29/2013 8:49 AM | | | | | PDT | | + + + + + | Body Mass Index | 30.58 | 03/29/2013 8:49 AM | | | | | PDT | | + + + + + documented in this encounter Patient Instructions Patient Instructions Peter Haney MD - 03/29/2013 9:09 [facility] your scheduled [facility] to allow for time to check in. You may eat and drink as usual on the day of the procedure. Do not take any blood thinning medications for at least 5-7 days prior to your procedure. All other medications should be taken as usual. Common blood thinning medications include: Aspirin (a baby aspirin is o.k.) Ibuprofen (Advil or Motrin) Naproxen (Aleve) Nabumetone (Relafen) Clopidogrel (Plavix) Dipyridamole/ASA (Aggrenox) Warfarin (Coumadin) Dabigatran (Pradaxa) There are many others. If you have questions about your medications please contact our off ice. Please also provide a pile driver operator barge mounted to take you home on the day of the procedure. documented in this encounter Progress Notes Peter Haney MD - 03/29/2013 8:53 AM PDT Subjective: Patient ID: Piter Fleming is a 68 y.o. male. Chief Complaint Patient presents with Back Pain Low back pain HPI The patient is being seen today in follow-up for complaints of low back pain as well as pain in the legs but only with standing too long or walking too far. His main complaint to day in the pain in the back, he been seen in my office on multiple occasions for the back pa in. The patient's symptoms have been a chronic issue for many years. He describes his sympto ms as aching. His symptoms have been worsening in the lower back, improving in the legs. His symptoms worsen with standing up and walking. His symptoms improve with the use of Hydr ocodone as well as with injections. He describes numbness in the thighs as well as in both feet from a peripheral neuropathy. He denies weakness. He denies bowel and bladder dysfuncti on. He also denies saddle anesthesia. Treatments for these complaints have included multiple prior injections, the use of Hydroco done. He has been doing physical therapy but this has mostly been for the knees. Prior injections have included most recently a right SI joint injection and a bilateral L3- L4 epidural steroid injection which were performed in July of 2012 fairly close together . The patient has also has had multiple prior bilateral L3-L4 epidural steroid injections wh ich he indicates have always provided him with good relief. MRI and x-rays of the lumbar spine were again reviewed. Current Outpatient Prescriptions Medication Sig Dispense Refill Calcium Carbonate-Vitamin D (CALTRATE 600+D PO) TABS; Take 1 tablet by mouth twice emilie y Cholecalciferol (D3-50) 34363 UNITS CAPS Take one capsule by mouth twice weekly citalopram (CELEXA) 40 mg tablet Take 40 mg by mouth Daily. Ephedrine-Guaifenesin (PRIMATENE ASTHMA) 12.5-200 MG TABS 2 to 3 tablets daily fluocinonide (LIDEX) 0.05 % ointment two times a day Glucosamine HCl (GLUCOSAMINE MAXIMUM STRENGTH) 1500 MG TABS HYDROcodone-acetaminophen (NORCO) 10-325 mg per tablet as needed iron polysaccharides (NU-IRON) 150 MG capsule Take 150 mg by mouth Daily. LevOCARNitine L-Tartrate (L-CARNITINE) 500 MG CAPS Take 500 mg by mouth Daily. levothyroxine (LEVOTHROID) 200 mcg tablet Take 200 mcg by mouth Daily. liothyronine (CYTOMEL) 50 MCG tablet two daily multivitamin (THERAGRAN) per tablet Take 1 tablet by mouth daily primidone (MYSOLINE) 50 mg tablet Take 4 by mouth daily at bedtime for 5 days then incr ease to 5 by mouth daily at bedtime for tremors propranolol (INDERAL) 40 mg tablet Take 40 mg by mouth Daily. sildenafil (VIAGRA) 100 MG tablet Take 100 mg by mouth nightly as needed. tamsulosin (FLOMAX) 0.4 mg CAPS Take 0.4 mg by mouth Daily. theophylline (UNIPHYL) 400 MG 24 hr tablet Take 400 mg by mouth Daily. topiramate (TOPAMAX) 25 mg tablet 1/2 tablet at at bedtime for 3 nights, then build up per 's written schedule to 2 tablets at bedtime for tremor vitamin B-12 (CYANOCOBALAMIN) 1000 MCG tablet Take 1,000 mcg by mouth Daily. Patient's medications, allergies, past medical, surgical, social and family histories were reviewed and updated as appropriate. Review of Systems No complaints other than those listed above in HPI. Filed Vitals: 03/29/13 0849 BP: 101/49 Pulse: 54 PainSc: 6 Objective: Physical Exam Nursing note and vitals reviewed. Constitutional: He is oriented to person, place, and time. He appears well-developed and we ll-nourished. HENT: Head: Normocephalic and atraumatic. Neck: No tracheal deviation present. Cardiovascular: Normal rate and regular rhythm. Pulmonary/Chest: Effort normal and breath sounds normal. No respiratory distress. Lymphadenopathy: He has no cervical adenopathy. Neurological: He is alert and oriented to person, place, and time. He has normal strength. No cranial nerve deficit or sensory deficit. He displays no Babinski's sign on the right fahad e. He displays no Babinski's sign on the left side. Reflex Scores: Patellar reflexes are 0 on the right side and 0 on the left side. Achilles reflexes are 0 on the right side and 0 on the left side. Skin: Skin is warm, dry and intact. No abrasion, no bruising, no ecchymosis, no laceration and no rash noted. Psychiatric: He has a normal mood and affect. His speech is normal and behavior is normal. Thought content normal. Cognition and memory are normal. Musculoskeletal: Straight leg raise and slump-sit are negative. Memo's maneuver and im pingement testing were negative for any groin pain. There was no tenderness to palpation o mirian the greater trochanters or sacral sulci. The patient localized the majority of the pain to the L5-S1 region. Lumbar facet loading was positive. Strength testing showed 5/5 stren gth throughout the lower extremities. The patient was able to heel and toe walk with some d ifficulty. There was no redness, effusion, warmth or joint line tenderness in the knees or ankles. He did have surgical scars over both knees. Assessment: 1. BACK PAIN, LUMBAR - likely multifactorial 2. Degenerative disc disease lumbar spine - he has degenerative changes at every level from L2 to S1. 3. Spinal stenosis of lumbar - worst at the L2-L3 and L3-L4 levels. This would be classifi ed as severe. 4. OSTEOARTHRITIS, LUMBOSACRAL SPINE 5. Peripheral neuropathy 6. Scoliosis 7. Tremor, essential Plan: 1. We discussed injections in detail. I offered to repeat the bilateral L3-L4 epidural ster oid injections which have always helped in the past. This will be performed in the near fut ure. If the patient continues to have back pain after the epidural injection I would offer b ilateral L5-S1 facet injections. 2. I would also be happy to get him back into PT if he would like. 3. We discussed his use of hydrocodone/apap. It does not appear that his use of this medi cation is inappropriate. documented in this encounter Plan of Treatment Not on filedocumented as of this encounter Visit Diagnoses + + | Diagnosis | + + | BACK PAIN, LUMBAR - Primary Lumbago | + + | Degenerative disc disease lumbar spine - he has degenerative changes at every level | | from L2 to S1. Degeneration of lumbar or lumbosacral intervertebral disc | + + | Spinal stenosis of lumbar - worst at the L2-L3 and L3-L4 levels. This would be | | classified as severe. Spinal stenosis, lumbar region, without neurogenic claudication | + + | OSTEOARTHRITIS, LUMBOSACRAL SPINE Lumbosacral spondylosis without myelopathy | + + | Peripheral neuropathy Unspecified hereditary and idiopathic peripheral neuropathy | + + | Scoliosis Scoliosis (and kyphoscoliosis), idiopathic | + + | Tremor, essential Essential and other specified forms of tremor | + + documented in this encounter
--- OUTSIDE RECORDS SUMMARY | ~2020-06-17 | XMS | Encounter Summary ---
Demographics + + + | Address | [address] | | | [place] [address] | + + + | Home Phone | | + + + | Preferred Language | Unknown | + + + | Marital Status | | + + + | Rastafari Affiliation | 1013 | + + + | Race | White | + + + | Ethnic Group | Not or | + + + Author + + + | Author | [facility] | | | and [place] | + + + | Organization | [facility] | | | [...] [place] | | | | | [address] | | + + + + + | Mason Fleming | ECON | Unknown | | + + + + + Care Team Providers + +------+ + | Care On Call Pharmacy Technician Name | Role | Phone | + +------+ + | Michael Grijalva | PCP | | | MD | | | + +------+ + Encounter Details +--------+ + + + + | Date | Type | Department | Care Team | Description | +--------+ + + + + | 10/16/ | Imaging | [facility] | Provider, | | | 2020 | Exam | MED CTR EXTERNAL | MD [address] | | | | | IMAGING [address] | | | | | [address] [place] | [place] [address] | | | | | [place] [address] | | | | | | [phone] | | | +--------+ + + + [...] + +--------+ + + + | MRI LUMBAR SPINE WO | Routin | 01/11/2019 | | Results for this | | CONTRAST | e | 12:00 AM | | procedure are in the | | | | PDT | | results section. | + +--------+ + + + documented in this encounter Results MRI Lumbar Spine wo Contrast (01/11/2019 12:00 AM PDT) + + | Specimen | + + | | + + + + + | Narrative | Performed At | + + + | External films for comparison only | [facility] | | | | | No results will be in the chart. | | + + + + +---------+ + + | Performing | Address | City/State/Zipcode | Phone Number | | Organization | | | | + +---------+ + + | [facility] | | | | + +---------+ + + documented in this encounter Visit Diagnoses Not on filedocumented in this encounter"
--- OUTSIDE RECORDS SUMMARY | ~2020-06-17 | XMS | Encounter Summary ---
Demographics + + + | Address | [address] | | | [place] [address] | + + + | Home Phone | | + + + | Preferred Language | Unknown | + + + | Marital Status | | + + + | Presybeterian Affiliation | 1013 | + + + | Race | White | + + + | Ethnic Group | Not or | + + + Author + + + | Author | [facility] | | | and [place] | + + + | Organization | [facility] | | [...] [place] | | | | | [address] | | + + + + + | Mason Fleming | ECON | Unknown | | + + + + + Care Team Providers + +------+ + | Care Filter Filler Name | Role | Phone | + [...] | | | Ischial | [place], | | | | | | bursitis of | Peter Cunha MD | | | | | | right side | [address] | | | | | | Procedures | [place] | | | | | | [place] Asp | [place], [place] | | | | | | and/or Inj | [address] | | | | | | Major Joint | Phone: | | | | | | Right | [phone] | | | | | | | Fax: | | | | | | | [phone] | | +--------+--------+ + + + + Diagnostic/Screening (Routine) +--------+--------+ + + + + | Status | Reason | Specialty | Diagnoses / | Referred By | Referred To | | | | | Procedures | Contact | Contact | +--------+--------+ + + + + | Closed | | Radiology | Diagnoses | | | | | | | Ischial | [place], | | | | | | bursitis of | Peter T, MD | | | | | | left side | [address] | | | | | | Procedures | [place] | | | | | | [place] Asp | [place], [place] | | | | | | and/or Inj | [address] | | | | | | Major Joint | Phone: | | | | | | Left | [phone] | | | | | | | Fax: | | | | | | | [phone] | | +--------+--------+ + + + + Reason for Visit Service/Procedure (Routine) +--------+--------+ + + + + | Status | Reason | Specialty | Diagnoses / | Referred By | Referred To | | | | | Procedures | Contact | Contact | +--------+--------+ + + + + | Closed | | Radiology | Diagnoses | | [facility] | | | | | Ischial | [place], | [address] | | | | | bursitis of | Peter T, MD | [place], | | | | | left side | [address] | [place] | | | | | Ischial | [place] | [address] | | | | | bursitis of | [place] | Phone: | | | | | right side | [address] | [phone] | | | | | Procedures | Phone: | Fax: | | | | | [place] | [phone] | [phone] | | | | | ARTHROCENTES | Fax: | | | | | | [place] | [phone] | | | | | | ASPIR&/INJ | | | | | | | MAJOR | | | | | | | JT/BURSA W/O | | | | | | | US DC | | | | | | | TRIAMCINOLON | | | | | | | E ACET INJ | | | | | | | NOS, 10 MG | | | | | | | HOLD 08/03/19 | | | | | | | Bilateral | | | | | | | Ischial | | | | | | | tuberrosity | | | | | | | bursa | | | | | | | injections | | | +--------+--------+ + + + + Encounter Details +--------+ + + + + | Date | Type | Department | Care Team | Description | +--------+ + + + + | 08/03/ | [facility] | [facility] | Peter Haney | Ischial bursitis of | | 2019 | Encounter | MED CTR XRAY [address] | [address], [address] | left side; Ischial | | | | [address] [place] | [place] | bursitis of right | | | | [place] [address] | [address] | side | | | | [phone] | | | | | | | [employer], [place] | | | | | | [place] | | +--------+ + + + + [...] +---------+ + + | Blood Pressure | 134/63 | 08/03/2019 3:08 PM | | | | | PST | | + +---------+ + + | Pulse | 74 | 08/03/2019 3:08 PM | | | | | PST [...] + +--------+ + + + | FL ASPIRATION | Routin | 08/03/2019 | Ischial bursitis | Results for this | | INJECTION MAJOR | e | 3:05 PM | of right side | procedure are in the | | JOINT RIGHT | | PST | | results section. | + +--------+ + + + | FL ASPIRATION | Routin | 08/03/2019 | Ischial bursitis | Results for this | | INJECTION MAJOR | e | 3:05 PM | of left side | procedure are in the | | JOINT LEFT | | PST | | results section. | + +--------+ + + + documented in this encounter Results FL Asp and/or Inj Major Joint Right (08/03/2019 3:05 PM PST) + + | Specimen | + + | | + + + + + | Narrative | Performed At | + + + | | [facility] | | 08/03/2019 Bilateral Ischial Tuberosity Bursa Injections Diagnosis: | | | Ischial Tuberosity Bursitis Piter Fleming presents to the | | | fluoroscopy suite for fluoroscopically guided bilateral ischial | | | tuberosity bursa steroid injections as part of conservative management | | | for chronic pain and ischial tuberosity bursitis. After informed | | | consent was obtained the patient laid in the prone position on the | | | fluoroscopy table. The ischial tuberosities were identified under | | | fluoroscopic guidance. The areas were prepped and draped in sterile | | | fashion. A 25 gauge 1-1/2 inch needle was inserted into each region | | | and approximately 3 mL of buffered 1% lidocaine was infused. The | | | needle was then inserted down to the ischial tuberosity bursae under | | | fluoroscopic guidance. Confirmation of needle placement into the | | | appropriate location was obtained with infusion of approximately 1 mL | | | of Omnipaque contrast which showed no vascular uptake. Then a | | | combination of 1 mL 1% lidocaine and 1 mL of 40 mg per milliliter | | | Kenalog was infused on each side. The patient tolerated the | | | procedures well without complications. Pre- and post procedure blood | | | pressures were stable. The patient was given verbal as well as written | | | followup instructions. Prior to the start of the procedure the | | | following were performed and verified including correct patient | | | identity, correct site/side marked and visible, agreement on the | | | procedure to be done, correct patient positioning and an accurate | | | procedure consent form. Any safety precautions based on clinical | | | history and/or medication use have been addressed. I personally | | | performed the procedure above. Estimated blood loss: | | | MinimalComplications: NoneFindings: As expectedAnesthesia: Local 1% | | | Lidocaine | | | | | |I personally [...] FL Asp and/or Inj Major Joint Left (08/03/2019 3:05 PM PST) + + | Specimen | + + | | + + + + + | Narrative | Performed At | + + + | | [facility] | | 08/03/2019 Bilateral Ischial Tuberosity Bursa Injections Diagnosis: | | | Ischial Tuberosity Bursitis Piter Fleming presents to the | | | fluoroscopy suite for fluoroscopically guided bilateral ischial | | | tuberosity bursa steroid injections as part of conservative management | | | for chronic pain and ischial tuberosity bursitis. After informed | | | consent was obtained the patient laid in the prone position on the | | | fluoroscopy table. The ischial tuberosities were identified under | | | fluoroscopic guidance. The areas were prepped and draped in sterile | | | fashion. A 25 gauge 1-1/2 inch needle was inserted into each region | | | and approximately 3 mL of buffered 1% lidocaine was infused. The | | | needle was then inserted down to the ischial tuberosity bursae under | | | fluoroscopic guidance. Confirmation of needle placement into the | | | appropriate location was obtained with infusion of approximately 1 mL | | | of Omnipaque contrast which showed no vascular uptake. Then a | | | combination of 1 mL 1% lidocaine and 1 mL of 40 mg per milliliter | | | Kenalog was infused on each side. The patient tolerated the | | | procedures well without complications. Pre- and post procedure blood | | | pressures were stable. The patient was given verbal as well as written | | | followup instructions. Prior to the start of the procedure the | | | following were performed and verified including correct patient | | | identity, correct site/side marked and visible, agreement on the | | | procedure to be done, correct patient positioning and an accurate | | | procedure consent form. Any safety precautions based on clinical | | | history and/or medication use have been addressed. I personally | | | performed the procedure above. Estimated blood loss: | | | MinimalComplications: NoneFindings: As expectedAnesthesia: Local 1% | | | Lidocaine | | | | | |I personally performed the procedure above. | | | | | |Estimated blood loss: Minimal | | |Complications: None | | |Findings: As expected | | |Anesthesia: Local 1% Lidocaine | | + + + + +---------+ + + | Performing | Address | City/State/[facility] [[email or web address] | Phone Number | | Organization | | | | + +---------+ + + | [facility] | | | | + +---------+ + + documented in this encounter Visit Diagnoses + + | Diagnosis | + + | Ischial bursitis of left side | + + | Ischial bursitis of right side | + + documented in this encounter Administered Medications + +--------+ +-------+------+------+ | Medication Order | MAR | Action | Dose | Rate | Site | | | Action | Date | | | | + +--------+ +-------+------+------+ | iohexol (OMNIPAQUE 300) 300 | Given | 08/03/20 | 4 mLs | | | | mg/mL injection 4 mL 4 mL, | | 19 3:15 | | | | | Intra-articular, ONCE, Marli | | PM PST | | | | | 08/03/19 at 1515, For 1 dose | | | | | | + +--------+ +-------+------+------+ +---+---+ | | | +---+---+ + +-------+ +-------+---+---+ | lidocaine (PF) 1% injection 2 | Given | 08/03/20 | 2 mLs | | | | mL 2 mL, Intra-articular, ONCE, | | 19 3:18 | | | | | Marli 08/03/19 at 1515, For 1 dose | | PM PST | | | | + +-------+ +-------+---+---+ +---+---+ | | | +---+---+ + +-------+ +-------+---+ + | lidocaine buffered 0.9% | Given | 08/03/20 | 6 mLs | | Other | | injection 6 mL 6 mL, | | 19 3:13 | | | (Comment | | Intradermal, ONCE, Marli 08/03/19 at | | PM PST | | | ) | | 1515, For 1 dose | | | | | | + +-------+ +-------+---+ + +---+---+ | | | +---+---+ + +-------+ +-------+---+---+ | triamcinolone acetonide | Given | 08/03/20 | 80 mg | | | | (KENALOG-40) 40 mg/mL injection | | 19 3:17 | | | | | 80 mg 80 mg, Intra-articular, | | PM PST | | | | | ONCE, [facility] 08/03/19 at 1515, For 1 | | | | | | | dose, Shake well. Not for IV | | | | | | | use., | | | | | | + +-------+ +-------+---+---+ +---+---+ | | | +---+---+ documented in this encounter"
--- OUTSIDE RECORDS SUMMARY | ~2020-06-17 | XMS | Encounter Summary ---
Demographics + + + | Address | [address] | | | [place] [address] | + + + | Home Phone | | + + + | Preferred Language | Unknown | + + + | Marital Status | | + + + | Protestant Affiliation | 1013 | + + + | Race | White | + + + | Ethnic Group | Not or | + + + Author + + + | Author | [facility] | | | and [place] | + + + | Organization | [facility] | | [...] [place] | | | | | [address] | | + + + + + | Mason Fleming | ECON | Unknown | | + + + + + Care Team Providers + +------+ + | Care Immigration Inspector Name | Role | Phone | + +------+ + | Michael Grijalva | PCP | | | MD | | | + +------+ + Reason for Visit + +--------+ + | Reason | Onset | Comments | | | Date | | + +--------+ + | Medication Refill | 10/16/ | | | | 2016 | | + +--------+ + Encounter Details +--------+--------+ + + + | Date | Type | Department | Care Team | Description | +--------+--------+ + + + | 10/16/ | Refill | [facility] | Joshua Jorge MD | Medication Refill | | 2016 | | NEUROSURGERY [address] | | | | | [address] | [place] [address] | | | | | LAURITA Salvador | [phone] | | | | | [address] | | | | | | [phone] | | | +--------+--------+ + + + [...] this encounter Miscellaneous Notes Telephone Encounter - Tom Schneider - 10/20/2016 12:10 PM PSTRx picked up by patient, id ve rified elephone Encounter - Delilah Schneider RN - 10/20/2016 8:12 AM PSTLeft message to notify patient Rx ready to pic k up with ID at front desk A M PSTTelephone Encounter - Delilah Schneider RN - 10/19/2016 12:48 PM PSTLeft message to con firm with patient that message was received and that Rx was approved but has not yet been si gned. Advised that Rx will be ready to orange picking supervisor 10/20/16 and we will call to let him know whe n it is ready. elepho monico Encounter - Tom Schneider - 10/19/2016 11:53 AM PSTPatient called. He would like this he ld for orange picking supervisor in the office if it hasn't already been mailed. Please call him back to disc uss if this is possible elep sabrina Encounter - Delilah Schneider RN - 10/19/2016 8:09 AM PSTRx ready to send [facility] Certified Mail #[phone] with provider's signature elephone Encounter - Jun Stout PA-C - 10/19 7:10 AM PSTapproved elephone Encounter - Delilah Schneider RN - 10/16/2016 9:15 AM PSTMedication Re fill Request Procedure: L2-3, L3-4, L4-5 Lateral Anterior Interbody Fusion, L5-S1 Transforaminal Lumbar Interbody Fusion, L3-4 Decompression Date of Surgery: 08/10/2016 Date of Next Office Visit: 11/10/2016 Medication requested: HYDROcodone-acetaminophen (NORCO) 10-325 mg Do you have a pain contract with any providers: No Are you receiving pain medication prescriptions from any other providers: No Current intake: 6-10 tablets daily Date of last refill: 10/05/2016 # of tabs left/or when will patient run out of this medication: 60 tablets left Where is pain located? Type of pain (constant, intermittent, sharp, dull)? : Primary compl aint right leg weakness, walking with a limb; primary discomfort with right leg swelling whe n he takes off compression stockings and leg "balloons up" Secondary discomfort with right sided sciatic-like pain from low back and through right lower extremity; inside of right teresa n is also still very tender. Send in the mail or call in to preferred pharmacy? Send [facility] Cert[facility] to [facility] [place] address Patient filled previous Rx a couple of days early (pharmacist filled even after confirming patient was advised to fill no sooner than 10/07/16 and plan to take Rx on trip to fill when n eeded). Patient had picked up Rx at our office and decided to fill at his regular pharmacy to take medication on trip rather than filling Rx at a different pharmacy while traveling. Advised patient to hold Rx until refill is needed and to be sure not to request refill early for future. Patient verbalized understanding. Patient is still in [place], [place] but will retu rn home to [place] 10/18/16 and requested Rx sent to his home address. Please approve/ deny Rx. elephone Encounter - Rere Mcgowan - 10/16/2016 8:26 AM PSTPatient called in requesting a refill for HYD ROcodone-acetaminophen (NORCO) 10-325 mg. He is asking for the script to be mailed to [facility] address. Please advise documented in this encounter Plan of Treatment Not on filedocumented as of this encounter Visit Diagnoses + + | Diagnosis | + + | S/P lumbar fusion - Primary Arthrodesis status | + + documented in this encounter
--- OUTSIDE RECORDS SUMMARY | ~2020-06-17 | XMS | Clinical Summary ---
Demographics + + + | Address | [address] | | | [place] [address] | + + + | Home Phone | | + + + | Preferred Language | Unknown | + + + | Marital Status | | + + + | Latter-Day Affiliation | CAT | + + + | Race | Unknown | + + + | Ethnic Group | Other Race | + + + Author + + + | Author | [facility] | + + + | Organization | [facility] | + + + | Address | Unknown | + + + | Phone | Unavailable | + + + Support +---------+ +---------+ + | Name | Relationship | Address | Phone | +---------+ +---------+ + | Unk Unk | ECON | Unknown | Unavailable | +---------+ +---------+ + Care Team Providers + +------+ + | Care Shellfish Weigher Name | Role | Phone | + +------+ + | Unknown | PCP | Unavailable | + +------+ + Source Comments ERIS is fully live on both [facility] and [facility] InPatient.[facility] Allergies No Known Allergies Medications + + + +---------+------+------+-------+ | Medication | Sig | Dispensed | Refills | Star | End | Statu | | | | | | t | Date | s | | | | | | Date | | | + + + +---------+------+------+-------+ | levothyroxine 200 | | | 0 | 07/1 | | Activ | | mcg oral tablet | | | | 4/20 | | e | | | | | | 20 | | | + + + +---------+------+------+-------+ | iron | Take by mouth. | | 0 | | | Activ | | bis-gly/FA/C/B12/Ca/ | | | | | | e | | succ (IRON-150 ORAL) | | | | | | | + + + +---------+------+------+-------+ | cyclobenzaprine 10 | Take 10 mg by mouth. | | 0 | 05/2 | | Activ | | mg oral tablet | | | | 9/20 | | e | | | | | | 18 | | | + + + +---------+------+------+-------+ | furosemide 20 mg | Take 20 mg by mouth. | | 0 | 03/1 | | Activ | | oral tablet | | | | 0/20 | | e | | | | | | 17 | | | + + + +---------+------+------+-------+ | rivaroxaban | Take 20 mg by mouth. | | 0 | 01/0 | | Activ | | (XARELTO) 10 mg oral | | | | 9/20 | | e | | tablet | | | | 20 | | | + + + +---------+------+------+-------+ | finasteride 5 mg | | | 0 | 07/1 | | Activ | | oral tablet | | | | 4/20 | | e | | | | | | 20 | | | + + + +---------+------+------+-------+ | escitalopram | Take 40 mg by mouth. | | 0 | | | Activ | | oxalate 20 mg oral | | | | | | e | | tablet | | | | | | | + + + +---------+------+------+-------+ | ergocalciferol | Take 50,000 capsules | | 0 | | | Activ | | (vitamin D2) | by mouth. | | | | | e | | (VITAMIN D ORAL) | | | | | | | + + + +---------+------+------+-------+ | docusate sodium | Take 200 mg by | | 0 | 01/0 | | Activ | | 100 mg oral capsule | mouth. | | | 9/20 | | e | | | | | | 20 | | | + + + +---------+------+------+-------+ | prasterone (DHEA) | Take 100 mg by | | 0 | | | Activ | | (DHEA ORAL) | mouth. | | | | | e | + + + +---------+------+------+-------+ | cyanocobalamin | Take 1,000 mcg by | | 0 | 09/1 | | Activ | | 1,000 mcg oral | mouth. | | | 420 | | e | | tablet | | | | 12 | | | + + + +---------+------+------+-------+ | tamsulosin 0.4 mg | Take 0.4 mg by | | 0 | 09/1 | | Activ | | oral capsule | mouth. | | | 420 | | e | | | | | | 12 | | | + + + +---------+------+------+-------+ | primidone 50 mg | Take 250 mg by mouth | | 0 | 01/2 | | Activ | | oral tablet | once daily at | | | 6/20 | | e | | | bedtime. | | | 11 | | | + + + +---------+------+------+-------+ | multivitamin oral | Take 1 tablet by | | 0 | 09/1 | | Activ | | capsule | mouth daily | | | 4/20 | | e | | | | | | 12 | | | + + + +---------+------+------+-------+ | fluocinonide 0.05 | two times a day | | 0 | 09/1 | | Activ | | % topical ointment | | | | 4/20 | | e | | | | | | 12 | | | + + + +---------+------+------+-------+ | buprenorphine HCL | Place 8 mg under | | 0 | 10/1 | | Activ | | 8 mg sublingual | tongue. | | | 2/20 | | e | | tablet, sublingual | | | | 19 | | | + + + +---------+------+------+-------+ | gabapentin 300 mg | Take 2 capsules by | 540 | 3 | 07/2 | | Activ | | oral capsule | mouth three times | capsule | | 09/18 | | e | | | daily. | | | 20 | | | + + + +---------+------+------+-------+ Active Problems + + + | Problem | Noted Date | + + + | Essential tremor | 03/19/2020 | + + + Encounters +--------+ + + + + | Date | Type | Specialty | Care Team | Description | +--------+ + + + + | 03/19/ | Video/TeleH | Neurology | Ines Mensah, | New patient | | 2019 | ealth-Sched | | MD | consultation | | | uled | | | | +--------+ + + + + | 03/19/ | MyChart | Neurology | Ines Mensah, | | | 2020 | Encounter | | MD | | +--------+ + + + + from Last 3 Months Family History + + +------+ + | Medical History | Relation | Name | Comments | + + +------+ + | Tremor | Brother | | | + + +------+ + | Tremor | Maternal | | | | | Grandmoth | | | | | er | | | + + +------+ + | Tremor | Mother | | | + + +------+ + + +------+--------+ + | Relation | Name | Status | Comments | + +------+--------+ + | Brother | | | | + +------+--------+ + | Maternal Grandmother | | | | + +------+--------+ + | Mother | | | | + +------+--------+ + Social History + + + +--------+------+ [...] on file | | + + + Last Filed Vital Signs Not on file Plan of Treatment + + + + + | Health Maintenance | Due Date | Last | Comments | | | | Done | | + + + + + | Influenza (Flu) | | 06/21/20 | | | vaccination (#1) | 0 | 19, | | | | | 07/05/20 | | | | | 18, | | | | | 09/06/19 | | | | | 18 | | + + + + + | Pneumococcal | Completed | 10/03/19 | | | vaccination | | 20, | | | | | 07/03/20 | | | | | 19, | | | | | 07/02/20 | | | | | 15 | | + + + + + Results Not on filefrom Last 3 Months Insurance + +--------+ +--------+ + +--------+ | Payer | Benefi | Subscriber | Effect | Phone | Address | Type | | | t Plan | ID | jonathan | | | | | | / | | Dates | | | | | | Group | | | | | | + +--------+ +--------+ + +--------+ | MEDICARE | MEDICA | [id number] | 02/28/20 | [phone] | [address] | Medica | | | RE A & | | 12-Pre | 1 | [address] | [address] | | | B | | sent | | [place] | | | | | | | | [address] | | + +--------+ +--------+ + +--------+ | [place] | BLUE | [id number] | 08/30/19 | [phone] | [address] | PPO | | | CROSS | | 16-Pre | 8 | [id number] [address] | | | | [place] | | sent | | [place], | | | | [place] | | | | [place] [address] | | + +--------+ +--------+ + +--------+ + +--------+ +--------+ + + | Guarantor Name | Accoun | Relation to | Date | Phone | Billing Address | | | t Type | Patient | of | | | | | | | | | | + +--------+ +--------+ + + | Piter Fleming P | Person | Self [birth year] | | | al/Fam | | 1945 | [phone] | [place] [address] | | | kyle | | | 8 (Home) | | + +--------+ +--------+ + +"
--- OUTSIDE RECORDS SUMMARY | ~2020-06-17 | XMS | Encounter Summary ---
Demographics + + + | Address | [address] | | | [place] [address] | + + + | Home Phone [...] + + + | Author | [facility] | | | and [place] | + + + | Organization | [facility] | | | [...] [place] | | | | | [address] | | + + + + + | Mason Fleming | ECON | Unknown | | + + + + + Care Team Providers + +------+ + | Care Ticker Maintainer Name | Role | Phone | + +------+ + | Michael Grijalva | PCP | | | MD | | | + +------+ + Reason for Visit + +--------+ + | Reason | Onset | Comments | | | Date | | + +--------+ + | Appointment | 08/04/ | | | | 2011 | | + +--------+ + Encounter Details +--------+ + + + + | Date | Type | Department | Care Team | Description | +--------+ + + + + | 08/04/ | Telephone | [facility] | Peter Haney | Appointment | | 2011 | | PHYSIATRY [address] | | | | [address] [facility] [address] [place], [place] | | | | | [place], [place] | [address] | | | | | [address] | | | | | | [phone] | | | +--------+ + + + [...] this encounter Miscellaneous Notes Telephone Encounter - Mahogany Elena - 08/05/2012 8:28 AM PSTDiscussed this with jeff kirby, he is scheduled for an SI joint injection on 08/18 but says if the pain resolves by then he will call and cancel it. elephone Encounter - Christy Iqbal - 08/04/2012 11:19 AM PSTCall from patient stating h e had back injections 08/02/12 and would like to schedule more. Please advise and return call . documented in this encount er Plan of Treatment Not on filedocumented as of this encounter Visit Diagnoses Not on filedocumented in this encounter"
--- OUTSIDE RECORDS SUMMARY | ~2020-06-17 | XMS | Encounter Summary ---
Demographics + + + | Address | [address] | | | [place] [address] | + + + | Home Phone | | + + + | Preferred Language | Unknown | + + + | Marital Status | | + + + | Synagogue Affiliation | 1013 | + + + | Race | White | + + + | Ethnic Group | Not or | + + + Author + + + | Author | [facility] | | | and [place] | + + + | Organization | [facility] | | | [...] [place] | | | | | [address] | | + + + + + | Mason Fleming | ECON | Unknown | | + + + + + Care Team Providers + +------+ + | Care Ruby On Rails Engineer Name | Role | Phone | + +------+ + | Michael Grijalva | PCP | | | MD | | | + +------+ + Reason for Visit +--------+--------+ + | Reason | Onset | Comments | | | Date | | +--------+--------+ + | Other | 08/06/ | presurgical check-in instructions | | | 2015 | | +--------+--------+ + Encounter Details +--------+ + + + + | Date | Type | Department | Care Team | Description | +--------+ + + + + | 08/06/ | Telephone | [facility] | Joshua Jorge MD | Other (presurgical | | 2015 | | NEUROSURGERY [address] | check-in | | | | [address] | [place] [address] | instructions ) | | | | [place] | [phone] | | | | | [address] | | | | | | [phone] | | | +--------+ + + + [...] this encounter Miscellaneous Notes Telephone Encounter - Marlen Santiago - 08/06/2016 3:10 PM PSTAll presurgical check-in instructions: Surgery date: Check-in Time: 10:00AM (OR Schedule states procedure start time 12:00PM) No solids or liquids after midnight the night before surgery. Follow the cleansing instructions provided beginning the night before surgery after you priscila wer or bathe. No showering the morning of surgery. Please do not wear jewelry, contact lenses to surgery check-in. If you have dentures, hearing aids, or glasses please bring the cases with you to check-in. Medications instructions: Held for procedure as of 08/02/16: DHEA, Multivitamin. Hold Nataliia nopril the morning of surgery. Surgical Admit Anticipated Disposition reviewed and correct: "Yes Confirmation of procedure/approval: "Yes". documented in this enc ounter Plan of Treatment Not on filedocumented as of this encounter Visit Diagnoses Not on filedocumented in this encounter
--- OUTSIDE RECORDS SUMMARY | ~2020-06-17 | XMS | Encounter Summary ---
Demographics + + + | Address | [address] | | | [place] [address] | + + + | Home Phone | | + + + | Preferred Language | Unknown | + + + | Marital Status | | + + + | Druze Affiliation | 1013 | + + + | Race | White | + + + | Ethnic Group | Not or | + + + Author + + + | Author | [facility] | | | and [place] | + + + | Organization | [facility] | | | [...] [place] | | | | | [address] | | + + + + + | Mason Fleming | ECON | Unknown | | + + + + + Care Team Providers + +------+ + | Care Gas Torch Brazier Name | Role | Phone | + +------+ + | Michael Grijalva | PCP | | | MD | | | + +------+ + Encounter Details +--------+ + + + + | Date | Type | Department | Care Team | Description | +--------+ + + + + | 08/06/ | Hospital | [facility] | Joshua Jorge MD | | | 2016 | Encounter | [facility] | [address] | | | | | [address] | [place] [address] | | | | | [place] | [phone] | | | | | [address] | | | | | | [phone] | | | +--------+ + + + [...] +---------+ + + | cyclobenzaprine | Take 1 tablet by | 90 | 2 | 08/13/20 | | | (FLEXERIL) 10 mg | mouth every 6 hours | tablet | | 16 | 6 | | tablet | as needed for Muscle | | | | | | | spasms. | | | | | + + + +---------+ + + | cyclobenzaprine | Take 1 tablet by | 90 | 2 | 08/13/20 | | | (FLEXERIL) 10 mg | mouth every 6 hours | tablet | | 16 | 7 | | tablet | as needed for Muscle | | | | | | | spasms. | | | | | + + [...] tablets by | 120 | 0 | 08/13/20 | | | HYDROcodone-acetamin | mouth every 4 hours | tablet | | 16 | 6 | | ophen (NORCO) 10-325 | as needed for Pain. | | | | | | mg per tablet | | | | | | + + + +---------+ + + | lactulose 10 g/15 | Take 30 mLs by mouth | 240 mL | 3 | 08/13/20 | | | mL solution | Daily as needed. | | | 16 | 7 | + + + +---------+ + + [...] + + + +---------+ + + | morphine (MS | Take 1 tablet by | 30 | 0 | 08/13/20 | | | CONTIN) 30 mg ER | mouth every 12 | tablet | | 16 | 6 | | tablet | hours. | | | | | + + [...]
--- OUTSIDE RECORDS SUMMARY | ~2020-06-17 | XMS | Encounter Summary ---
Demographics + + + | Address | [address] | | | [place] [address] | + + + | Home Phone | | + + + | Preferred Language | Unknown | + + + | Marital Status | | + + + | Denominational Affiliation | [id number] | + + + | Race | White | + + + | Ethnic Group | Not or | + + + Author + + + | Author | [facility] | | | and [place] | + + + | Organization | [facility] | | | [...] [place] | | | | | [id number] | | + + + + + | Mason Fleming | ECON | Unknown | | + + + + + Care Team Providers + +------+ + | Care Retort Pre Cooker Name | Role | Phone | + [...] + + | Closed | Specialty | Home Health | Diagnoses | Jurgen, | | | | Services | Services | History of | Hollis Xie MD | | | | Required | | total hip | [address] | | | | | | replacement, | [place] | | | | | | unspecified | [place] | | | | | | laterality | [id number] | | | | | | | Phone: | | | | | | | [phone] | | | | | | | Fax: | | | | | | | [phone] | | +--------+ + + + + + Reason for Visit Auth/Cert +--------+--------+ + [...] | | is of right | | [place], | | | | | hip Right | | [place] [address] | | | | | hip pain | | Phone: | | | | | Procedures | | [phone] | | | | | [place] TOTAL HIP | | Fax: | | | | | | | [phone] | | | | | ARTHROPLASTY | [...] + + | 09/05/ | Hospital | [facility] | Hollis Seaman, | History of total hip | | 2019 - | Encounter | [facility] | [address] | replacement, | | | | [address] | [place] | unspecified | | 09/07/ | | [place] [id number] | [id number] | laterality (Primary | | 2019 | | [phone] | | Dx); Primary | | | | | | osteoarthritis of | | | | |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 | +--------+ + + + + Social [...] + + + | Blood Pressure | 107/52 | 09/07/2019 7:42 AM | | | | | PST | | + + + + + | Pulse | 91 | 09/07/2019 7:42 AM | | | | | PST | | + + + + + | Temperature | 36.4 C (97.5 F) | 09/07/2019 7:42 AM | | | | | PST | | + + + + + | Respiratory Rate | 18 | 09/07/2019 7:42 AM | | | | | PST | | + + + + + | Oxygen Saturation | 99% | 09/07/2019 7:42 AM | | | | | PST | | + + + + + | Inhaled Oxygen | - | - | | | Concentration | | | | + + + + + | Weight | 118.9 kg (262 lb 2 | 09/05/2019 10:24 AM | | | | oz) | PST | | + + + + + | Height | 185.4 cm (6' 1") | 09/05/2019 10:24 AM | | | | | PST | | + + + + + | Body Mass Index | 34.58 | 09/05/2019 10:24 AM | | | | | PST | | + + + + + documented in this encounter Discharge Summaries Hollis Seaman MD - 09/07/2019 7:44 AM PSTFormatting of this note might be different fro m the original. DISCHARGE SUMMARY Pt. Name/Age/: Piter Fleming 74 y.o. 1945 Date of Admission: 09/05/2019 Date of Discharge: 09/07/2019 Admitting Physician: Hollis Seaman MD PCP: Michael Grijalva Discharging Physician: Hollis Seaman MD Primary Discharge Dx: S/p right total hip arthroplasty Secondary Discharge Dx: Patient Active Problem List Diagnosis TREMOR, ESSENTIAL PERIPHERAL NEUROPATHY LUMBAR RADICULOPATHY Spinal stenosis, lumbar region, with neurogenic claudication OSTEOARTHRITIS, KNEE Degenerative disc disease lumbar spine BACK PAIN, LUMBAR OSTEOARTHRITIS, LUMBOSACRAL SPINE SLEEP APNEA, OBSTRUCTIVE, SEVERE DDD (degenerative disc disease), lumbar SCOLIOSIS ERRONEOUS ENCOUNTER--DISREGARD Lumbar scoliosis Flat back syndrome, acquired Facet arthropathy, lumbar Depression Thyroid disease Essential hypertension, benign Asthma, intrinsic Sleep apnea S/P lumbar fusion HTN (hypertension) Ischial bursitis of left side Primary osteoarthritis of right hip Bilateral hip joint arthritis Ischial bursitis of right side Right hip pain Trochanteric bursitis, right hip Benign localized hyperplasia of prostate with urinary obstruction Hospital Course, including Complications: patient did well postop and was mobilized with PT . On postop day 2 he was tolerating pain with oral meds alone. He has a wound vac via on christie t has no drainage and is clean and dry. Calves nontender. He is on xarelto for dvt prophylax is. He is doing well and is stable for discharge to home. He will have the vac on for one we ek then change to [facility] Pertinent Diagnostic Info/Data: Medications Reconciled upon Discharge are: Discharge Medications New Medications Details docusate sodium 100 MG capsule Take 200 mg by mouth 2 times daily. aka: COLACE oxyCODONE 5 mg tablet Take 1-3 tablets by mouth every 3 hours as needed for Pain. exempt aka: ROXICODONE rivaroxaban 10 mg tablet Take 1 tablet by mouth Daily. aka: XARELTO Changed Medications Details gabapentin 300 mg capsule TAKE 2 TABLETS BY MOUTH NIGHTLY FOR NEUROPATHIC PAIN What changed: What Changed: Instructions aka: NEURONTIN primidone 50 mg tablet Take 4 by mouth daily at bedtime for 5 days then increase to 5 by mouth daily at bedtime f or tremors What changed: how much to take how to take this when to take this additional instructions aka: MYSOLINE tamsulosin 0.4 mg Caps Take 0.4 mg by mouth Daily. What changed: how much to take when to take this aka: FLOMAX Unchanged Medications Details buprenorphine [address] 8 mg under the tongue. 3-4 tabs daily aka: SUBUTEX cyanocobalamin 1,000 mcg tablet Take 1,000 mcg by mouth Daily. aka: VITAMIN B-12 cyclobenzaprine 10 mg tablet Take 10 mg by mouth as needed. aka: FLEXERIL DHEA 50 MG Tabs Take 100 mg by mouth Daily. ergocalciferol 1.25 mg (50,000 units) capsule Take 50,000 Units by mouth Once a week. aka: VITAMIN D2 escitalopram 20 mg tablet Take 40 mg by mouth Daily. aka: LEXAPRO finasteride 5 mg tablet Take 5 mg by mouth Daily. aka: PROSCAR fluocinonide 0.05% ointment two times a day aka: LIDEX furosemide 20 mg tablet Take 20 mg by mouth as needed for Edema (For ankle swelling). aka: LASIX L-Carnitine 500 MG Caps Take 500 mg by mouth Daily. LEVOTHROID 200 mcg tablet Generic drug: levothyroxine Take 175 mcg by mouth Daily. lisinopril 10 mg tablet Take 10 mg by mouth Daily. aka: PRINIVIL, ZESTRIL multivitamin tablet Take 1 tablet by mouth daily NU-IRON 150 MG capsule Generic drug: iron polysaccharides Take 150 mg by mouth Daily. potassium chloride 10 mEq CR tablet Take 10 mEq by mouth as needed. aka: KLOR-CON theophylline 400 MG 24 hr tablet Take 400 mg by mouth Daily. aka: UNIPHYL Condition on Discharge: Stable Disposition: Patient was discharged to home Follow-Up Plans: 2 weeks Code Status/Advance Directive (Pertinent discussions/declarations): Full Code Electronically signed by: Hollis Seaman MD, 09/07/2019 7:44 AM [facility] signed by Hollis Seaman MD at 04/2020 7:46 AM PSTdocumented in this encounter Discharge Instructions Instructions Hollis Seaman MD - 09/06/2019 Keep wound vac on for one week then can remove it and place an aquacel waterproof bandage If not comfortable doing that I can do it in the office - otherwise will see you at 2 weeks for suture removal Medication Instructions: Do not exceed 4,000 mg of acetaminophen (Tylenol) per day. Hydrocodone-acetaminophen ([place]un[place] ) and Oxycodone-acetaminophen (Percocet) have 325 mg acetaminophen per tablet. Regular stre ngth acetaminophen is 325 mg per tablet. Extra strength has 500 mg per tablet. While you are taking the blood thinner (Xarelto= rivaroxaban), please do not take any NSAID s (aspirin, ibuprofen, naproxen, Motrin, Advil, Aleve, etc.) These can increase your risk o f bleeding. Watch for signs of bleeding: Easy bruising Bleeding from the gums Vomiting something that looks like coffee grounds Dark tarry stool Call the doctor if you experience any of these. Watch for signs of blood clots: DVT: hard, hot, hurt, red in back of calf PE or [place]: sudden chest pain or trouble breathing Stroke: trouble thinking or weakness on one side of body Call 911 if you experience any of these symptoms. Do not consume alcohol while taking prescription pain medications. For constipation: While you are taking opioid pain medications (hydrocodone and/or oxycodone), continue to ta ke docusate (Colace) and senna (Senokot) twice daily. This will both help you have a bowel movement and help the stool stay soft and [id number]. Remember to drink plenty of fluids and eat fiber-containing foods. If you do not have a bowel movement within two days of returning home, add milk of magnesia 30 mL once each night and/or Miralax one capful (17 grams) dissolved in half a cup of water once daily for 3 days. These are available [id number] at any drugstore. If you are still constipated 3 days after discharge, add a one-time bisacodyl (Dulcolax) romero ppository or an enema. If these do not work, contact the surgeon's office. AttachmentsThe following attachments cannot be sent through Care Everywhere.Rivaroxaban ora l tablets (Turkmen)documented in this encounter Medications at Time of [...] documented as of this encounter Progress Notes Christy Youngblood, PharmD - 09/07/2019 10:27 AM Moodyconrad Fleming is s/p R CHRISTIE and disch arged home today (09/07/2019.) Taught AVS education to patient. Educated patient on new blood thinner and pain medications . I explained indication, how to take, possible side effects, when to contact physician, and monitor parameters. Of note: Patient uses buprenorphine for chronic pain control prior to admission. We talked about how to transition from arnol-op opioid pain management back to b uprenorphine. Patient has an appointment with buprenorphine prescriber on 09/13/2019, and agr s to call him today to discuss interim pain management plan. We discussed rivaroxaban: S/S clotting (stroke/DVt/PE), bleeding (bruising, bleeding, GI/ ), and when to seek medical attention. Rivaroxaban patient education handout given to jeff kirby. The patient was encouraged to ambulate often and to participate in PT. We discussed not to exceed 4,000 mg of acetaminophen per day. Patient was advised not to co nsume alcohol while taking opioid mediations. We discussed normal bowel movements should be about 1 to 2 per week. Advised patient to use docusate-senna twice daily until opioid pain medication regimen completed, and to add milk of magnesia and/or Miralax daily if no bowel m ovement within two days of discharge. Advised patient to contact surgeon's office if no bow el movement within three days of discharge. The patient verbalized understanding of the above and all questions were answered. Pharmaci will follow-up with patient in one to two business days. Patient was provided with a elmer nciled discharge medication list as part of their AVS instructions. Encouraged patient to sh are medication list with healthcare providers and keep list current. Christy Youngblood PharmD 09/07/2019 10:25 AM Hollis Borrego MD - 09/06/2019 7:46 AM PST Vitals: 09/06/19 0454 BP: Pulse: 80 Resp: 18 Temp: I/O last 3 completed shifts: In: 5182.5 [P.O.:2240; I.V.:2898; IV Piggyback:44.5] Out: 900 [Urine:400; Blood:500] No intake/output data recorded. On exam patient resting comfortably On 2 liters Dressings intact and dry Leg lengths equal Recent Results (from the past 24 hour(s)) ECG 12 lead Result Value Ref Range VENTRICULAR RATE EKG 48 BPM ATRIAL RATE 48 BPM P-R INTERVAL 262 ms QRS DURATION 160 ms Q-T INTERVAL 462 ms Q-T INTERVAL (CORRECTED) 412 ms P WAVE AXIS 85 degrees QRS AXIS -64 degrees T AXIS -46 degrees INTERPRETATION TEXT Sinus bradycardia with marked sinus arrhythmia with 1st degree AV block Right bundle branch block Left anterior fascicular block T wave abnormality, consider anterolateral ischemia T wave abnormality, consider inferior ischemia Abnormal ECG When compared with ECG of 11-AUG-2019 11:05, Previous ECG has undetermined rhythm, needs review T wave inversion now evident in Anterolateral leads Inferior T wave inversion is more evident Confirmed by AISLINN MCCORMICK MD ([id number]) on 09/06/2019 6:21:02 AM Basic Metabolic Panel Result Value Ref Range Na 133 (L) 136 - 145 mmol/L K 3.9 3.4 - 5.1 mmol/L Cl 97 (L) 98 - 107 mmol/L CO2 27 20 - 31 mmol/L Anion Gap 9 3 - 16 mmol/L Glucose 126 (H) 60 - 106 mg/dL BUN 16 9 - 23 mg/dL Creatinine 0.96 0.70 - 1.30 mg/dL eGFR if not >60 >=60 mL/min/1.73m2 Calcium 8.3 (L) 8.7 - 10.4 mg/dL BUN/Creatinine Ratio 16.7 Hemoglobin and Hematocrit Result Value Ref Range Hematocrit 31.1 (L) 40.0 - 51.0 % Hemoglobin 10.3 (L) 13.5 - 18.0 g/dL POD 1 s/p CHRISTIE Mobilize with PT today Possible aspiration - good oxygenation Has sleep apnea and uses CPAP Continue to observe Chronic pain syndrome with suboxone use Anticipate difficulty with pain control after block completely worn offElectronically sign ed by Hollis Seaman MD at 09/06/2019 7:48 AM PSTdocumented in this encounter H&P Notes Hollis Seaman MD - 09/05/2019 11:31 AM PSTNo change in history and physical He has been on suboxone chronically and we discussed the difficulties in postop pain contro l while on this drug The option of cancelling surgery and stopping the suboxone prior to surgery is offered him He wants to go ahead and do the surgery today and accept the risk of more difficulties in p ain control postop Plan right total hip arthroplasty iHollis escamilla MD - 09/03/2019 10:59 AM PSTFormatting of this note might be di fferent from the original. [facility] HISTORY AND PHYSICAL EXAMINATION Pt. Name/Age/: Piter Fleming 74 y.o. 1945 Date of admission: (Not on file) Admitting Physician: Hollis Seaman MD Primary Care Physician: Michael Grijalva Chief Complaint/Reason for Visit: Right hip pain History of Present Illness: He has had long-standing problems with his right hip. He has 2 locations of complaint -he has been plagued with pain that is localized to the ischial tuberosity on the left side. He has had steroid injection in this area he also has right groin pain. The groin pain is agg ravated by activity with prolonged standing or walking and generally improved with rest. Si tting aggravates his left buttock pain. He also has chronic low back pain. He is status po st L1 to the sacrum fusion in 2015 and he had a foot drop as a surgical complication. Past Medical History: Past Medical History: Diagnosis Date Asthma, intrinsic [...] L3-4 Decompression; Surgeon: Joshua Jorge MD; Location: [facility] MAIN OR ROTATOR CUFF REPAIR Right 06/2015 TONSILLECTOMY AND ADENOIDECTOMY 1951 TOTAL KNEE ARTHROPLASTY Bilateral /-2010 WRIST SURGERY 2010 Hardware removal Allergies: Allergies Allergen Reactions Nsaids Other (See Comments) Unable to take due to Gastric Bypass Surgery Latex Rash Elastic in his sock's cause a rash Current Medications: No current facility-administered medications for this encounter. Current Outpatient Medications Medication Sig Dispense Refill buprenorphine (SUBUTEX) 8 mg SUBL cyclobenzaprine (FLEXERIL) 10 mg tablet Take 10 [...] FOR NEUROPATHIC P AIN 180 capsule 4 iron polysaccharides (NU-IRON) 150 MG capsule Take 150 mg by mouth Daily. LevOCARNitine L-Tartrate (L-CARNITINE) 500 MG CAPS Take 500 mg by mouth Daily. levothyroxine (LEVOTHROID) 200 mcg tablet Take 175 mcg by mouth Daily. lisinopril (PRINIVIL, ZESTRIL) 10 mg tablet Take 10 mg by mouth Daily. Multiple Vitamins-Minerals (MULTIVITAMIN ADULT PO) Take by mouth. multivitamin (THERAGRAN) per tablet Take 1 tablet [...] tablet Take 1,000 mcg by mouth Daily. Family History: Family History Problem Relation Age of Onset Other (see comment) Father 80 kidney failure High blood pressure Father No known problems Paternal Grandfather No known problems Paternal Grandmother No known problems Maternal Grandfather No known problems Maternal Grandmother Arthritis Other Diabetes Other Gout Other Heart defect Other Social History: Social History Socioeconomic History Marital status: Spouse name: Not on file Number of children: 2 Years of education: 14+ Highest education level: Not on file Occupational History Comment: Retired Social Needs Financial resource strain: Not on file Food insecurity: Worry: Not on file Inability: Not on file Transportation needs: Medical: Not on file Non-medical: Not on file Tobacco Use Smoking status: Former Smoker Packs/day: 1.00 Years: 16.00 Pack years: 16.00 Last attempt to quit: 08/30/1980 Years since quittin.0 Smokeless tobacco: Never Used Substance and Sexual Activity Alcohol use: Yes Alcohol/week: 0.0 standard drinks Comment: Rarely/Socially Drug use: No Sexual activity: Yes Comment: Rarely Lifestyle Physical activity: Days per week: Not on file Minutes per session: Not on file Stress: Not on file Relationships Social connections: Talks on phone: Not on file Gets together: Not on file Attends jew service: Not on file Active member of club or organization: Not on file Attends meetings of clubs or organizations: Not on file Relationship status: Not on file Intimate partner violence: Fear of current or ex partner: Not on file Emotionally abused: Not on file Physically abused: Not on file Forced sexual activity: Not on file Other Topics Concern Not on file Social History Narrative Not on file Review of Systems: Eyes: []? Double vision []? Glasses/contacts []? Failing vision Ear/Nose/Throat: []? Frequent Colds []? Sinus Disease []? Nose obstructi on []? Sneezing Spells []? Change in taste []? Artificial teeth []? Ears ringing []? Ear pain []? Hearing l oss []? Teeth problems []? Hoarseness []? Neck swelling []? Sore throat []? Congestion []? Nosebleeds []? Nasal allergies Respiratory: []? Asthma/Wheezing []? Pneumonia []? Night sweats [x]? Shortness of breath []? Chronic cough []? Coughing up blood []? Exposure to tuberculosis Cardiovascular: []? Heart Problems []? Hypertension []? Heart murmur []? Palpitations []? Rheumatic fever []? Phlebitis []? Chest pain [x]? Ankle swelling []? Leg cramps []? Racing heart []? Skipping beats []? Blood clots Gastrointestinal: []? Abdominal pain []? Heartburn []? Blood from rectum []? Colitis []? Gallbladder problems []? Tro uble swallowing []? Bloated stomach []? Change in stools []? Vomitin g blood []? Nausea []? Hemorrhoids []? Jaundice []? Hepatitis []? Diarrhea []? Constipation []? Diverticulit is Urinary Tract: []? Painful urination []? Kidney Stones []? Any urine leakage [x]? Weak urine stream []? Night urination []? Urine infections []? Bedwetting []? Blood in urine Skin: []? Skin rashes []? Itching/Burning []? Skin bruises ea sily []? Artificial tanning []? Skin cancer []? Hair loss []? Changes in moles Musculoskeletal: []? Physical handicaps [x]? Back or shoulder pain []?Rheumatoid disease []? Osteoarthritis [x]? Joint pain [x]? Joint swelling []?Gout []? Leg cramps at night Neurological: []? Headaches []? Seizures []? Stroke/TIA []? Faintness [x]? Tremors [x]? Numbness []? Dizziness []? Changes in handwriting []? Memory loss [x]? Shooting pains Psychiatric: [x]? Depression []? Suicidal thoughts []? Sleep pattern changes []? Appetite change s []? Recent counseling [x]? Nervousness/anxiety []? Physical violence []? Marital problems Endocrine: [x]? Thyroid []? Diabetes Systemic: []?Weight loss/gain (over 10 lbs) []?Fever/chills [x]?Fatigue []? Sleeping Difficulties []? Speech change []? Voice change Vitals: BP 161/70 Pulse 75 Temp 36.6 C (97.8 F) (Temporal) SpO2 93% Physical Examination: General: Alert, oriented, no acute distress HEENT: Normocephalic, atraumatic Cardiovascular: Regular rate and rhythm, no murmurs Respiratory: Clear to auscultation bilaterally Abdomen: Soft, non-tender, non-distended, positive bowel sounds Extremities: right hip has 0 degrees of internal rotation Attempts to do so aggravates groin pain He has 30 degrees of right hip abduction He can adduct to the midline He has weak right ankle dorsiflexion and 5/5 plantarflexion He has 5/5 hip flexion and extension abduction and adduction He has 5/5 knee flexion and extension Distally he has intact pedal pulses X-rays are reviewed by me and show severe and advanced osteoarthritis right hip Assessment and Plan: Severe and advanced bone on bone osteoarthritis right hip He has made good progress in physical therapy for conditioning He has some co morbidities that put him at risk for postop complications He has an L2 to the sacrum fusion - will put him at higher than average risk for dislocatio n He has some neurologic deficits with quad weakness and a foot drop on the right side That will undoubtedly slow our progress in safe ambulation postop We discussed the possibility of SNF depending on his postop progress during hospitalization The other risks of infection and blood clots and our strategies for lowering them also disc ussed today All questions answered Plan right total hip arthroplasty Hollis Seaman MD do cumented in this encounter Miscellaneous Notes Plan of Care - Ron Pérez RN - 09/07/2019 11:15 AM PSTHap has been deemed medica lly stable to be discharged home to [place] with spouse. He is mobilizing with SBA and fww . His woundvac is CDI, no issues. Pt's pain has been controlled by 15 mg oxycodone and tylen ol PRN. lan of Eulalia castro - Drea Harris RN - 09/07/2019 9:26 AM PSTProblem: Discharge Planning Goal: Patient's discharge needs will be identified in a timely manner Outcome: Met Goal: Patient will be discharged in a safe manner Outcome: Met This CM noted patient has discharge orders for today. Faxed the HH orders to [facility] this AM and spoke with Luz Maria letting her know that the HH referral is headed her way and that patient is being discharged today. Fax transmission confirmed and placed in ghost chart. Luz Maria returned call and stated she needed an OR PCP to follow for the HH and that she requ ired the H&P, Discharge summary, and 2 PT notes and the wound care requirements on the face to face. Notified attending surgeon, and the HH orders were edited per this CM RN. This was all faxed to [facility]; fax transmission confirmed and placed in ghost chart. Dispo: Home with HH services thru [facility]. Has his own FWW at home. will be transporting back home to [place] today. Electronically signed by: Drea Harris RN 09/07/2019 9:28 AM lan of Care - Yasmin Flynn paulo Judd, BOG CUTTER - 09/07/2019 9:09 AM PSTFormatting of this note might be different from the orig inal. Physical Therapy Plan of Care Treatment Note Summary: Piter has been participating in physical therapy for treatment of R CHRISTIE via ant erior approach. Emphasis of session included bed mobility, transfer training, gt training, stair training, [employer] HEP packet review/recall for supine/seated ther ex activities. Patient demonstrate s progress towards functional goals as evidenced by min increased tolerance with mild bouts of ambulation, min diminished level of assist with bed mobility, transfer training, pt cont to require SBA throughout this session. Pt cont to present with RLE pain/weakness/pain, min/ mild antalgic gt pattern, min generalized deconditioning/weakness. RN cleared patient for participation in therapy. Patient was agreeable to PT. Patient parti cipated without adverse reaction. RN debriefed on PT session and patient status. Patient is encouraged to ambulate into hallway with nursing staff. It is encouraged that the patient be up in chair for all meals. Recommended mobility with nursing: into the hallway Front Wheel Walker stand by assistance and verbal cues Remaining barriers to discharge and functional limitations include decreased functional act ivity tolerance, decreased bed mobility, decreased functional transfers, decreased gait [place], stairs at home, not yet able to mobilize at level safe for home discharge, and medical status. Piter will benefit from continued therapeutic intervention to address ongoing impairments and increase safety and independence with activities necessary for safe discharge. Refer be low for specific details regarding functional levels. Physical Therapy Discharge Recommendations are: Recommended discharge disposition: home with assist Post discharge physical therapy recommendation: ongoing low intensity therapy, family invo lved/supportive, will benefit from structured setting, pt is motivated participant Equipment Recommendations: none(has FWW) Planned Interventions: balance training, bed mobility training, gait training, home exerci se program, joint mobilization, manual therapy techniques, motor coordination training, neur omuscular re-education, orthotic fitting/training, patient/family education, postural re-edu cation, ROM (Range of Motion), stair training, strengthening, stretching, transfer training Recommended Frequency: (1-2x/day ORTHO) Patient Status/Goals: Reflects last filed data and may be from multiple contributors. Gait SBA, general safety d/t reduced WB/wt shifting RLE, min instability with turn navigation, e xtra time/effort d/t RLE soreness/weakness, min antaligic gt pattern, min reduced upright ac tivity tolernace, vc for pacing, safety, sequencing, AD mgmt Level of [place]: stand by assist, verbal cues required Assistive Device: 2 wheeled walker (FWW), gait belt Distance (feet): 155' Gait Pattern Analysis: 2-point gait Gait Deviations: samson decreased, double stance time increased, weight-shifting ability d ecreased, limb motion velocity decreased Safety Issues: balance decreased during turns, sequencing ability decreased, step length de creased, weight-shifting ability decreased Impairments: pain, strength decreased, ROM decreased, decreased flexibility, postural contr ol impaired Stairs SBA, fair+ return demo post visual demo and vc, extra time/effort d/t RLE soreness/weakness , min generalized weakness, reduced WB/wt shifting RLE Number of Stairs: 4, curb x1 6" step Handrail Location: both sides Level of [place]: stand by assist, verbal cues required Assistive Device: 2 rails, 1 rail, 2 wheeled walker (FWW) Technique Used: step to step (ascending), step to step (descending) Safety Issues: sequencing ability decreased, weight-shifting ability decreased Impairments: pain, strength decreased, ROM decreased, decreased flexibility Transfers extra time/effort d/t RLE soreness/weakness, vc for pacing, safety, sequencing, general saf ety d/t min antalgic WB/wt shifting Bed-Chair, Level of [place]: stand by assist, verbal cues required Chair-Bed, Level of [place]: not tested Boc-Ffldo-Eek, Assistive Device: 2 wheeled walker (FWW), gait belt Sit-Stand, Level of [place]: stand by assist, verbal cues required Stand-Sit, Level of [place]: supervised Zbm-Jfoih-Upe, Assistive Device: 2 wheeled walker (FWW), gait belt Maintain Weight Bearing Status: able to maintain weight bearing status Safety Issues: weight-shifting ability decreased, step length decreased, sequencing ability decreased, balance decreased during turns Impairments: decreased flexibility, strength decreased, pain, ROM decreased Bed Mobility SBA with supine>sit, pt tends to utilize momentum with supine>sit with log roll tech, extra time/effort d/t RLE soreness/weakness, generalized weakness, vc for pacing, safety, seqeunc ing, LE positioning, hand placement Assistive Device: bed rails Roll Left, Level of [place]: stand by assist, verbal cues required Roll Right, [place] of [place]: stand by assist, verbal cues required Scoot/Bridge, Level of [place]: stand by assist, verbal cues required Supine to Sit, Level of [place]: not tested Sit to Supine, Level of [place]: not tested Sidelying to Sit, Level of [place]: stand by assist, verbal cues required Sit to Sidelying, Level of [place]: stand by assist, verbal cues required Safety Issues: decreased use of legs for bridging/pushing Impairments: decreased flexibility, pain, strength decreased, ROM decreased Balance improving throughout with FWW mgmt Sitting Balance: Static: good balance Sitting Balance: Dynamic: good balance Standing Balance: Static: fair balance Standing Balance: Dynamic: fair balance Therapeutic Exercise MedBrige and MLM HEP packets review/recall, ther ex review/recall for supine/seated activit ies with fair return recall/review/demo this session Seated exercises: bilateral, ankle pumps, marching, long arc quads, knee flexion(glut sets) Repetitions: x5 Exercises Supine Ankle Pumps - 15 reps - 2 sets - 4x daily - 7x weekly Supine Quad Set - 15 reps - 2 sets - 4x daily - 7x weekly Supine Gluteal Sets - 15 reps - 2 sets - 4x daily - 7x weekly Seated Heel Toe Raises - 15 reps - 2 sets - 4x daily - 7x weekly Seated Long Arc Quad - 15 reps - 2 sets - 4x daily - 7x weekly Mini Squat - 15 reps - 2 sets - 4x daily - 7x weekly Patient Education Total Hip Replacement Handout Putting On and Taking Off Pants with a Bog Cutter and Hip Precautions Putting On Socks with a Sock Aid and Hip Precautions Putting on Shoes with a Long-Handled Shoehorn and Bog Cutter Functional Endurance fair+ with mild activities, secondary d/t min antlagic gt pattern, min reduced upright acti vity tolerance, RLE weakness/soreness PT Goal Review Date Most Recent Value STG Review Date 09/12/19 at 09/05/2019 1700 Mizwds-Oso-Suxmpc Goal Most Recent Value STG Status progressing at 09/07/2019 0909 STG [place] Level modified independent at 09/05/2019 1700 STG Assistive Device HOB elevated, bed rails at 09/05/2019 1700 Ssa-Vwwfp-Koa Goal Most Recent Value STG Status progressing at 09/07/2019 0909 STG [place] Level modified independent at 09/05/2019 1700 STG Assistive Device 2 wheeled walker (FWW) at 09/05/2019 1700 Sim-Eksja-Src Goal Most Recent Value STG Status progressing at 09/07/2019 0909 STG [place] Level modified independent at 09/05/2019 1700 STG Assistive Device 2 wheeled walker (FWW) at 09/05/2019 1700 Gait Goal Most Recent Value STG Status progressing at 09/07/2019 0909 STG [place] Level modified independent at 09/05/2019 1700 STG Assistive Device 2 wheeled walker (FWW) at 09/05/2019 1700 STG Distance (feet) 150 at 09/05/2019 1700 Stair Goal Most Recent Value STG Status progressing at 09/07/2019 0909 STG [place] Level modified independent at 09/05/2019 1700 STG Assistive Device 1 rail at 09/05/2019 1700 STG Number of Stairs 4 at 09/05/2019 1700 PT Time Calculation Individual Start Time: 0830 Individual Stop Time: 0909 Individual Total Time: 39 PT Total Treatment Time: 39 Timed [place] Code Minutes: 39 Electronically signed by: Teja Flynn PTA, 09/07/2019 10:34 AM lan of Ava Zendejas RN - 09/07/2019 6 :01 AM PSTHap is a very kind gentleman, A/Ox4, VSS, pain managed with ice packs/oxy 15mg and 1 dose IV toradol with good results, reports sleeping well last night, CPAP in place; foam dressing to R hip CDI, portable wound vac set to 125mmHg for healing, +CMS, baseline BLE N/T , baseline tremors BUE; 1P SBA w/FWW to BR, voiding adequate urine output, last BM 09/03, BT a ctive, reports flatus, colace given, declined senna d/t gastric bypass hx, denies constipati on, myron gen diet w/o nausea; plan is d/c home with spouse and HH. lan of Jailene Snell RRT - 09/07/2019 3: 38 AM PSTPt in bed sitting up on room air SpO2 94%, full non labored speech,= bilateral ches t excursion without the use of ABM for I/E effort, BS CTA,good NPC, pt w/d/p no c/o sob dysp kyrie, home CPAP set up filled and ready for use pt has used all night. Stable and.Electronica lly signed by Jailene Yoo RRT at 09/07/2019 3:40 AM PSTPlan of Ron Bourne RN - 09/06/2019 7:04 PM PSTHap is AAO, his hip pain has been controlled with tylenol, 5 m g oxycodone and IV toradol PRN. His woundvac is CDI, no issues. He is able to void using the urinal standing at bedside with SBA. He is mobilize with therapy and fww. He has been up in the chair or at the edge of bed for all meals. Pt is using CPAP when at rest. He calls appr bentley for assistance. 7:4 5 PM PSTPlan of Christine De Anda RN - 09/06/2019 3:39 PM PST Visited with Mr. Fleming at the bedside to discuss his discharge plans. Mr. Fleming reports he lives with his in a two level home, they live on the main floor. They have two steps and a handrail to the left to enter the home. They have an additional s tep to the kitchen. The home has a walk-in shower with grab bars. He states he is normally independent with his ADL's, he does not use any DME, or oxygen at baseline. He uses a CPAP and this gets serviced through [facility]. His PCP is Dr. Grijalva and he uses the [facility]. He states he owns a FWW. Mr. Fleming's ortho pathway plan is to discharge to home with HH services, he states he is m obilizing well, but wishes to wait another day to see how he does. His will transport him home when he is stable for discharge. CM to continue to follow. Plan: Home with and [facility]. Electronically signed by: Christine Lux RN 09/06/2019 3:46 PM lan of Care - Teja Flynn, BOG CUTTER - 09/06/2019 2:58 PM PSTFormatting of this note might be different from the or iginal. Physical Therapy Plan of Care Treatment Note Summary: Piter has been participating in physical therapy for treatment of R CHRISTIE via ant erior approach. Emphasis of session included bed mobility, transfer training, gt training, ther ex for LE s trengthening and HEP. Patient demonstrates progress towards functional goals as evidenced b y mild increased tolerance with mild bouts of ambulation, diminished level of assist with al l functional mobility completed this session. Pt cont to present with RLE soreness/weakness, reduced upright activity tolerance and min generalized deconditioning/weakness, with min an talgic gt throughout session. RN cleared patient for participation in therapy. Patient was agreeable to PT. Patient parti cipated without adverse reaction. Patient is encouraged to ambulate into hallway with nursin g staff. It is encouraged that the patient be up in chair for all meals. Recommended mobility with nursing: into the hallway Front Wheel Walker stand by assistance contact guard assistance and verbal cues and tactile cues Remaining barriers to discharge and functional limitations include decreased insight into s afety and deficits, decreased functional activity tolerance, decreased bed mobility, decreas ed functional transfers, decreased functional gait distance, decreased gait velocity, stairs at home, not able to navigate stairs, not yet able to mobilize at level safe for home disch arge, and medical status. Piter will benefit from continued therapeutic intervention to address ongoing impairments and increase safety and independence with activities necessary for safe discharge. Refer be low for specific details regarding functional levels. Physical Therapy Discharge Recommendations are: Recommended discharge disposition: home with assist Post discharge physical therapy recommendation: ongoing low intensity therapy, family invo lved/supportive, will benefit from structured setting, pt is motivated participant Equipment Recommendations: none(has FWW) Planned Interventions: balance training, bed mobility training, gait training, home exerci se program, joint mobilization, manual therapy techniques, motor coordination training, neur omuscular re-education, orthotic fitting/training, patient/family education, postural re-edu cation, ROM (Range of Motion), stair training, strengthening, stretching, transfer training Recommended Frequency: (1-2x/day ORTHO) Patient Status/Goals: Reflects last filed data and may be from multiple contributors. Gait CGA throughout session, extra time/effort d./g RLE soreness/weakness, min antalgic gt lisa rn, vc for pacing, safety, sequencing, upright posture, AD mgmt, general safety d/t min redu kendrick WB/wt shifting RLE, slight instability with initial turn navigation Level of [place]: contact guard assist, verbal cues required Assistive Device: 2 wheeled walker (FWW), gait belt Distance (feet): 65' x2 Gait Pattern Analysis: 2-point gait Gait Deviations: samson decreased, double stance time increased, weight-shifting ability d ecreased, limb motion velocity decreased Safety Issues: balance decreased during turns, sequencing ability decreased, step length de creased, weight-shifting ability decreased Impairments: pain, strength decreased, ROM decreased, decreased flexibility, postural contr ol impaired Transfers general safety d/t min antalgic WB/wt shifting, slight instability with initial stance, ext ra time/effort d/t generalized deconditioning/weakness, vc for pacing, safety, sequencing Bed-Chair, Level of [place]: not tested Chair-Bed, Level of [place]: stand by assist, verbal cues required Wkg-Bkooc-Slj, Assistive Device: 2 wheeled walker (FWW), gait belt Sit-Stand, Level of [place]: stand by assist, verbal cues required Stand-Sit, Level of [place]: stand by assist, verbal cues required Mhr-[id number]-Jcl, Assistive Device: 2 wheeled walker (FWW), gait belt Maintain Weight Bearing Status: able to maintain weight bearing status Safety Issues: weight-shifting ability decreased, step length decreased, sequencing ability decreased, balance decreased during turns Impairments: decreased flexibility, strength decreased, pain, ROM decreased Bed Mobility SBA with sit>supine, extra time/effort d/t RLE soreness/weakness, pt tends to utilized mome ntum this session Assistive Device: none Scoot/Bridge, Level of [place]: stand by assist, verbal cues required Supine to Sit, Level of [place]: not tested Sit to Supine, Level of [place]: stand by assist, verbal cues required Safety Issues: decreased use of legs for bridging/pushing Impairments: decreased flexibility, pain, strength decreased, ROM decreased Balance Sitting Balance: Static: good balance Sitting Balance: Dynamic: good balance Standing Balance: Static: fair balance Standing Balance: Dynamic: fair balance Therapeutic Exercise Bed exercises: bilateral, ankle pumps, quad sets, glut sets Repetitions: x10 Functional Endurance fair with mild activities completed, secondary d/t RLE soreness/weakness, reduced upright a ctivity tolerance PT Goal Review Date Most Recent Value STG Review Date 09/12/19 at 09/05/2019 1700 Fjfbao-Exi-Mejbnj Goal Most Recent Value STG Status progressing at 09/06/2019 1458 STG [place] Level modified independent at 09/05/2019 1700 STG Assistive Device HOB elevated, bed rails at 09/05/2019 1700 Dlm-Rhmts-Xxc Goal Most Recent Value STG Status progressing at 09/06/2019 1458 STG [place] Level modified independent at 09/05/2019 1700 STG Assistive Device 2 wheeled walker (FWW) at 09/05/2019 1700 Blx-Woybk-Ern Goal Most Recent Value STG Status progressing at 09/06/2019 1458 STG [place] Level modified independent at 09/05/2019 1700 STG Assistive Device 2 wheeled walker (FWW) at 09/05/2019 1700 Gait Goal Most Recent Value STG Status progressing at 09/06/2019 1458 STG [place] Level modified independent at 09/05/2019 1700 STG Assistive Device 2 wheeled walker (FWW) at 09/05/2019 1700 STG Distance (feet) 150 at 09/05/2019 1700 Stair Goal Most Recent Value STG Status new at 09/05/2019 1700 STG [place] Level modified independent at 09/05/2019 1700 STG Assistive Device 1 rail at 09/05/2019 1700 STG Number of Stairs 4 at 09/05/2019 1700 PT Time Calculation Individual Start Time: 1430 Individual Stop Time: 1458 Individual Total Time: 28 PT Total Treatment Time: 28 Timed TX Code Minutes: 28 Electronically signed by: Teja Flynn PTA, 09/06/2019 7:05 PM lan of Care - Fernanda Hensley INDUSTRIAL REFRIGERATION MECHANIC - 09/06/2019 11: 07 AM PST Problem: Obstructive Sleep Apnea Risk or Actual (Comorbidity Management) Goal: Unobstructed Breathing During Sleep Outcome: Ongoing, progressing -History of sleep apnea since 1984. Home auto-titrating 8-20 cmh2O CPAP equipment at [facility] for use during this stay. Hap denies shortness of breath at rest or while walking in hallway today. Breath sounds ar e clear throughout, tolerating room air with SpO2: 96 %(At rest in bed, denies shortness of breath.) Using incentive spirometry on own, achieving his predicted goal. CPAP at bedside, patient uses for napping throughout the day as well as night. lan of Care - Sandra Levin, OT - 09/06/2019 10:11 AM PSTFormatting of this note might be different from the or iginal. Occupational Therapy Plan of Care Initial Evaluation, Treatment Note Summary: Piter presents to occupational therapy with decreased capacity for indep with A DLs, functional mob/tfs following RIght Total Hip Arthroplasty Direct Anterior Approach. Objective exam reveals impairments with anthropometric characteristics, ergonomics and body mechanics, functional endurance/activity tolerance, gait, locomotion, and balance, neuromoto r. Session included bed mobility, functional mob/tfs. Barriers to discharge and functional limitations include decreased insight into safety and deficits, decreased functional activity tolerance, decreased bed mobility, decreased functio nal transfers, decreased ability to perform ADLs, decreased ability to perform IADLs, not ye t able to mobilize at level safe for home discharge, and medical status. Piter will benefit from therapeutic intervention to address impairments and increase safet y and independence with activities necessary for safe discharge. Refer below for specific d etails regarding functional levels. Precautions/Limitations: right anterior hip precautions Previous Level of Function: Transferring: independent Ambulation: independent Toileting: independent Bathing: independent Dressing: assistive person(Has a hard time bending, challenge getting underwear on. Aby he lps with socks and shoes. ) Eating: independent Communication: understands/communicates without difficulty Swallowin-->swallows foods/liquids without difficulty Equipment Currently Used at Home: none Prior Functional Level Comment: Previously indep though assist for dressing. Pt reports ess ential tremors of both arms, sometimes head. Pt reports plan to go to the [facility] at [facility]. Potential available assistance at discharge: Living Environment/Accessibility: Lives With: spouse Living Arrangements: house Home Accessibility: stairs (2 railings present), stairs to enter home Number of Stairs to Enter Home: 3(2 steps then landing then 1 step) Number of Stairs Within Home: 17(7 then landing then ~10 steps down to a family room. Downs tairs access not necessary. ) Transportation Available: car, family or friend will provide Living Environment Comment: Own a FWW, but wasn't using it. Hopes to get back to [facility]. Walk in shower, small threshold, grab bars, no seat but could get one, no HHSH. Higher toilet, grab bar. Patient/Family s Goals: wants to be able to get up, walk without a walker. Rehabilitation potential: good, to achieve stated therapy goals Occupational Therapy Discharge Recommendations are: Recommended discharge disposition: home with assist Post discharge occupational therapy recommendation: (TBD with further OT) Equipment Recommendations: shower chair, sports analyst, sock aide, long handled shoe horn(additi onal equipment TBD with further OT) Planned Interventions:ADL retraining, balance training, bed mobility training, functional e ndurance training, transfer training, other (see comments)(MLM, additional interventions prn ) Recommended Frequency: (4-5xs) Patient Status/Goals: Reflects last filed data and may be from multiple contributors. ADLs No BADLs this session, to be assessed with further OT. Functional Endurance Pt with fair activity tolerance overall. Cognitive Pt pleasantly participatory and cooperative throughout. Mood/Behavior: calm, cooperative Orientation: (confirmed name and ) Arousal Level: opens eyes spontaneously Speech: clear Bed Mobility Supine>sit SBA, HOB minimally raised Assistive Device: HOB elevated Supine to Sit, Level of [place]: stand by assist Safety Issues: decreased use of legs for bridging/pushing Impairments: decreased flexibility Transfers 2 P Min sit>stand EOB, weight shifting performed EOB and with an instance of slight imbalan ce at R hip. 2P min gait belt, FWW throughout mobility, 1+1 CGA for transfer into chair. IV pole/wound vac mgmt provided throughout. Sit-Stand, Level of [place]: minimal assist (75% patient effort), 2 person assist requ ired, set up required, verbal cues required Stand-Sit, Level of [place]: contact guard assist, 1 person + 1 person to manage equip ment, set up required, verbal cues required Imd-Qkmtx-Nnx, Assistive Device: 2 wheeled walker (FWW) Safety Issues: weight-shifting ability decreased, step length decreased, sequencing ability decreased, balance decreased during turns Impairments: decreased flexibility, strength decreased, other (see comments)(decreased acti vity tolerance) ROM BUE ROM WFL Strength BUE Strength WFL Coordination: Coordination Comments: Able to grossly perform finger individuation both hands. Tremoring n oted, especially with L hand. OT Goal Review Date Most Recent Value STG Review Date 09/13/19 at 09/06/2019 1002 LB Dressing Goal Most Recent Value STG Status new at 09/06/2019 1002 STG [place] Level set up required, verbal cues required, stand by assist at 0 1002 STG Adaptive Equipment sports analyst, sock-aid [FWW] at 09/06/2019 1002 Toileting Goal Most Recent Value STG Status new at 09/06/2019 1002 STG [place] Level supervised, verbal cues required, set up required at 09/06/2019 100 2 STG Assistive Device grab bar [over the toilet commode prn. FWW] at 09/06/2019 1002 Toilet Transfer Goal Most Recent Value STG Status new at 09/06/2019 1002 STG [place] Level supervised, verbal cues required, set up required at 09/06/2019 100 2 STG Assistive Device 2 wheeled walker (FWW), grab bars [over the toilet commode prn] at 1002 Tub/Shower Transfer Goal Most Recent Value Tub/Shower Type walk in shower stall at 09/06/2019 1002 STG Status new at 09/06/2019 1002 STG [place] Level contact guard assist, set up required, verbal cues required at 03/2020 1002 STG Assistive Device 2 wheeled walker (FWW), grab bars, shower chair at 09/06/2019 1002 OT Time Calculation OT Individual Start Time: 927 OT Individual Stop Time: 1010 OT Individual Total Time: 43 OT Missed Treatment Time: 3(doctor present during session) OT Total Treatment Time: 40 Timed TX Code Minutes: 25 Electronically signed by: Sandra Levin OT, 09/06/2019 6:44 PM lan of Care - Brooke Butterfield RN - 09/06/2019 3:12 AM PSTPatient remained free of falls throughout the shift . A/O. VSS-except HR bqufnofqvjc-akbjmvove-qaqvecq states baseline frequent bradycardic occu rences. Continuous pulse ox in place. SCD's in place. CPAP used throughout the night-patient on 2 L NC before CPAP initiation-O2 saturation maintained between 97-100%. Wound vac to rig ht hip in place-site and dressing monitored. CMS checks performed. Patient instructed on bernard quent use of IS and coughing/deep breathing when awake. Pain managed with position changes, warm blankets for comfort, and toradol. Denies N/V. Urinal at bedside for elimination. Patie nt presented resting throughout the night in between cares. Last reported BM on 09/03-received colace-no results. Will continue to monitor. lan of Care - Ron Pérez RN - 09/05/2019 6:37 PM PS THap arrived to room on 5L open mask, he is now on 2L NC. inside sales representative reported that pt is at hig h risk for aspiration pneumonia due to emesis while LMA was still in place. RT has been work ing with pt and were contacted. He is AAO, calls appropriately. He has baseline tremors to b ilateral upper extremities. He states he has baseline drop foot on the right. Numbness and t ingling in bilateral feet. Pedal pulses palpable. Woundvac CDI intact, pump is set to 125. B ed alarm active. Call light within reach. lan of Care - Michael Pfeiffer PT - 09/05/2019 5:45 PM PSTFor matting of this note might be different from the original. Physical Therapy Plan of Care Initial Evaluation, Treatment Note Summary: Piter presents to physical therapy with R CHRISTIE via anterior approach. 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 RN cleared Piter Fleming for participation in therapy and he was agreeable to PT. Piter participated in PT without adverse reaction. RN debriefed on PT session and patient status. The patient is safe to mobilize with front wheeled walker and Min A with 2 person assistance from nursing staff due to active nerve block. Objective exam reveals impairments with aerobic capacity/endurance, ergonomics and body mec hanics, functional endurance/activity tolerance, gait, locomotion, and balance, integumentar y integrity, joint integrity and mobility, sensory integration/regulation, reflex integrity, ROM, posture, neuromotor, muscle performance, motor function, social dynamics, HEP. Barriers to discharge and functional limitations include decreased insight into safety and deficits, decreased functional activity tolerance, decreased bed mobility, decreased functio nal transfers, decreased functional gait distance, decreased gait velocity, stairs at home, not able to navigate stairs, not yet able to mobilize at level safe for home discharge, and medical status. Piter will benefit from therapeutic intervention to address impairments and increase safet y and independence with activities necessary for safe discharge. Refer below for specific d etails regarding functional levels. Precautions/Limitations: right anterior hip precautions Previous Level of Function: Transferring: independent Ambulation: independent Toileting: independent Bathing: independent Dressing: independent Eating: independent Communication: understands/communicates without difficulty Swallowin-->swallows foods/liquids without difficulty Equipment Currently Used at Home: none Prior Functional Level Comment: lives in SS house with spouse, owns a FWW but does not use. Potential available assistance at discharge: Living Environment/Accessibility: Lives With: spouse Living Arrangements: house Home Accessibility: stairs (2 railings present), stairs to enter home Number of Stairs to Enter Home: 3 Number of Stairs Within Home: 16(7+9 stairs to downstairs basement game room - not required for basic mobility) Transportation Available: car, family or friend will provide Patient/Family s Goals: return to PLOF Rehabilitation potential: good, to achieve stated therapy goals Physical Therapy Discharge Recommendations are: Recommended discharge disposition: home with assist Post discharge physical therapy recommendation: ongoing low intensity therapy, family invo lved/supportive, will benefit from structured setting, pt is motivated participant Equipment Recommendations: none(has FWW) Planned Interventions: balance training, bed mobility training, gait training, home exerci se program, joint mobilization, manual therapy techniques, motor coordination training, neur omuscular re-education, orthotic fitting/training, patient/family education, postural re-edu cation, ROM (Range of Motion), stair training, strengthening, stretching, transfer training Recommended Frequency: (1-2x/day ORTHO) Patient Status/Goals: Reflects last filed data and may be from multiple contributors. Gait unable to take functional steps due to active nerve block RLE. Transfers not formally tested, active nerve block RLE. RLE unable to hold full wt due [facility]. Sit-Stand, Level of [place]: moderate assist (50% patient effort) Stand-Sit, Level of [place]: moderate assist (50% patient effort) Nwn-Yddxp-Poo, Assistive Device: 2 wheeled walker (FWW) Maintain Weight Bearing Status: able to maintain weight bearing status Safety Issues: weight-shifting ability decreased, step length decreased, sequencing ability decreased, balance decreased during turns Impairments: muscle tone abnormal, decreased flexibility, sensation decreased, strength dec reased, impaired balance, coordination impaired, motor control impaired, sensory feedback im paired Bed Mobility min A with hand hold assist, use of bed features, pt uses log [employer] tech he learned during p revious back surgery Balance good Functional Endurance good ROM not formally tested, active nerve block RLE. Grossly WFL based on functional mobility Strength L LE Strength: grossly 3/5 at least wtih functional mobility R LE Strength: not formally tested, grossly 2/5 overall with active nerve block RLE. PT Goal Review Date Most Recent Value STG Review Date 09/12/19 at 09/05/2019 1700 [id number] Goal Most Recent Value STG Status new at 09/05/2019 1700 STG [place] Level modified independent at 09/05/2019 1700 STG Assistive Device HOB elevated, bed rails at 09/05/2019 1700 [id number]-Qqm Goal Most Recent Value STG Status new at 09/05/2019 1700 STG [place] Level modified independent at 09/05/2019 1700 STG Assistive Device 2 wheeled walker (FWW) at 09/05/2019 1700 [id number] Goal Most Recent Value STG Status new at 09/05/2019 1700 STG [place] Level modified independent at 09/05/2019 1700 STG Assistive Device 2 wheeled walker (FWW) at 09/05/2019 1700 Gait Goal Most Recent Value STG Status new at 09/05/2019 1700 STG [place] Level modified independent at 09/05/2019 1700 STG Assistive Device 2 wheeled walker (FWW) at 09/05/2019 1700 STG Distance (feet) 150 at 09/05/2019 1700 Stair Goal Most Recent Value STG Status new at 09/05/2019 1700 STG [place] Level modified independent at 09/05/2019 1700 STG Assistive Device 1 rail at 09/05/2019 1700 STG Number of Stairs 4 at 09/05/2019 1700 PT Time Calculation Individual Start Time: 1700 Individual Stop Time: 1745 Individual Total Time: 45 PT Total Treatment Time: 45 Timed TX Code Minutes: 30 Electronically signed by: Michael Pfeiffer, PT, 09/05/2019 6:02 PM lan of Care - Nikko Armas RRT - 09/05/2019 5:37 PM PSTPatient admitted for hip replacement surgery. Hx of Asthma, BETTY, has auto CPAP 8-20 with nasal mask. Vomited in PACU when LMA was removed, most of emesis suctio [place]. ON 2 l/m nasal cannula now, sating 95%. Setup home CPAP with O2 in line. IS setup, 3100 cc predicted, 3200 cc best effort. BS Clear throughout. Non-productive cough. Will continue to monitor and treat as needed. 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 POSTOP DIAGNOSIS: Same DATE OF SERVICE: 09/05/2019 PROCEDURE: RIght Total Hip Arthroplasty Direct Anterior Approach Biomet G7 52 mm cup with dual mobility insert Depuy Actis femoral component size 5 high offset biolox 28mm femoral head plus 5 CO-SURGEONS: Hollis Louis MD INDICATIONS FOR SURGERY: patient with deformity right hip with severe varus neck angle and anteverted proximal femur has failed all conservative management for bone on bone osteoarthr itis and now presents for total hip arthrplasty PROCEDURE IN DETAIL: After informed consent is obtained, patient is taken to the operating room, underwent spinal anesthesia followed by general. Pt received IV ancef and one gram tranexamic acid prior to skin incision. Pt is in supine position on a [place] ta ble and both feet put in well padded traction boots. The patient is positioned against a wel l padded perineal support. All bony prominences are well padded. C arm is brought in for pre operative imaging. After sterile prep and drape, appropriate time out and surgical site conf irmation and surgical safety checklist is completed. An incision is made just posterior and distal to the ASIS and extended approximately 15 centimeters. Blunt dissection to the tenso r fascia is carried out, the tensor fascia is incised in the midline and the interval betwee n the tensor and medial septum. An [facility] self retraining retractor is placed in this interval. The rectus fascia is incised along the posterior border and the lateral femoral c ircumflex vessels are controlled with the Aquamantis device. The anterior capsule fat pad i s removed for better visualization and the capsule is opened up and tag sutures placed. Bent rhett retractors are placed within the hip joint. He had a very tight hip and the femoral h ead was almost ankylosed to the socket and had to be broken up into pieces for removal Dr. Louis completed the femoral neck osteotomy and the acetabular preparation and impla ntation of the cup and insert. See his separate dictation for the details of the this portio n of the operation. At this time 60cc of .2 percent naropin is injected into the hip muscula ture and subcutaneous tissues for postop analgesia. It should be noted that several times th roughout the case we used betadine irrigation followed by saline irrigation. Attention is then made to the femoral preparation. The limb is placed in external rotation and the pubofemoral capsular ligaments are taken down by me so the lesser trochanter is palp ated and inferior capsule released. An Innomed two prong retractor is placed around the femo ral calcar and a cobra retractor is placed around the greater trochanter. The limb is dropped down into extension and adduction position. The [place]view femoral hook is no t used. Exposure of the proximal femur is achieved and the proximal femur is prepared with hand tools.The lateral femoral neck is carved out with a bur to facilitate a straight shot d own the canal for broaching. He had extremely hard cancellous bone and even using a canal fi nder it was difficult to find the canal and I inadvertently penetrated he cortex with the ca nal finder but it was very proximal near the lesser trochanter and was not felt to be anythi ng to treat. We worked hard to get the right position of the femur for broaching and we coul d not use the ME 1000 but used double offset hand broaches to work the broaches after we herberth med. We passed a guide pin for flexible synthes reamers and commenced reaming the femur unti l we got up to 11mm diameter. Broaching is commenced with a starter broach and subsequent br oaching is performed until we had a tight fit with a size 5 broach. We did a trial reduction and it looked like the appropriate size stem and down the canal centrally and with the plus 5 ball length we had appropriate length and offset . After thorough irrigation of the canal the actual stem is then implanted until seated and the hip reduced with a trial plus 5. Thi s was then chosen and the dual mobility bearing was assembled on the back table and implante d on a clean and dry trunion and hip reduced. After final implantation of the stem and femor al head the joyce imaging confirmed appropriate size and position of the implants and reasona ble leg length and offset position. The hip is thoroughly irrigated and the capsule is left open , the tensor fascia is repaired with O-vicryl, and the subcutaneous tissues are closed with 2-0 vicryl and 3-0 vicryl and the skin with diane. One gram of vancomycin and 1.2 gr ams tobramycin powder are placed in the hip joint prior to closure. Due to his large pannus and concern for postop wound issues with his co morbidities we decided to use a wound vac on the incision and so a vac via was placed and seal was confirmed Every aspect of this case was much more difficult than the usual primary hip replacement du e to his large size and deep wound with short varus femoral neck and anteverted proximal fem ur. We felt a -22 modifier is justified due to the much more time spent and resources than a usual primary hip replacement EBL: 500cc Hollis Seaman MD p Note - Brooks Louis MD - 09/05/2019 1:52 PM PSTDate of Surgery: 09/05/19 OPERATING CO-SURGEONS: Hollis Seaman MD and Brooks Louis MD ANESTHESIOLOGIST: Fernando Lyon MD PREOPERATIVE DIAGNOSIS: Right hip osteoarthrosis. POSTOPERATIVE DIAGNOSIS: same. TITLE OF OPERATION: Right anterior approach total joint hip arthroplasty a 52 mm Biomet G7 acetabular cup, a Liner size E 42 mm Bearing size Dual Mobility Acetabular liner, a size 5 high collar Depuy Actis stem, a 5.0 by 36 mm Biolox head, and a 28 by 42 mm Dual Mobility B earing. This is considered unusual services -22 due to this patient's massive abdomen and t issue induration and stiffness. HISTORY AND REASON FOR SURGERY: Piter Fleming is a 74 y.o. male who has a long rafi ding history of right hip pain. He has failed conservative measures and is having difficult y with activities of daily living. Currently, he notes that his right hip hurts in the groi n and he is having difficulty walking and wishes to proceed with definitive treatment. X-ra ys show right hip osteoarthrosis and he therefore is felt to be an appropriate operative can didate and therefore the planned procedure with its risks, possible complications, expected prognosis and treatment alternatives were discussed with the patient by Dr. Seaman and his questions were answered. No guarantees were given or implied other than that of diligent ef fort. OPERATIVE PROCEDURE: After the patient was consented for surgery, he received a fascia il iaca block from anesthesia in the pre operative area. He was then brought to the operating room where he underwent a general anesthesetic successfully. He did receive appropriate siz e doses of Ancef and tranexamic acid. He was then carefully placed on the [place] table and casie ropriately padded and stabilized. Preprocedural templating images were obtained. The entire right hip was then prepped with alcohol and Duraprep and draped in the usual free and steri le manner. At this time the middle column of the surgical safety checklist was carried out by the surgical team. We then made a 10 cm incision, starting 1 cm inferior to and 1 cm pos terior to the ASIS angulating distally over the bulge of the TFL. We carried the incision d own through skin and subcutaneous tissues to the TFL fascia which was divided in line with t he incision. We used digital dissection to establish the TFL Sartorius interval through whi ch the Cassie-Lexus retractor was placed. We freed the lateral edge of the rectus femoris and placed retractor deep to this as well. We then removed the investing fatty fascia, we s ecured hemostasis with Aquamantys including control of the lateral femoral circumflex vessel s. The capsule was then opened lateral V-shaped manner and a flap of the capsule was reflec [place] laterally with a #5 Ethibond. The bent Rhett retractors were placed. We then osteotomi zed the femoral neck at the appropriate level. We removed the napkin ring of bone and then removed the actual femoral head. The modified Charley was placed. We had to use additiona l retraction to access the fossa due to the patient's stiffness. We thoroughly debrided the acetabular fossa and then commenced acetabular reaming starting with a 48 mm reamer, and fi nishing with a 51 mm reamer where we had good bleeding bone. We then injected the entire in terior of the hip with a 100 mL volume, including 99 mL 0.2 percent ropivacaine, one vial To radol and 0.3 mL epinephrine. Following this, we then took the 52 mm cup and impacted this into place. We impacted the cup into position in approximately 44 degrees of inclination an d about 22 degrees of version. We then placed the Dual Mobility Acetabular liner which fit well. We were pleased. At this juncture, Dr. Seaman took over the case and will dictate the entire remaining port ion of the surgery including femoral exposure, canal identification, broaching, trialing, im plantation of final components and closure. In the end were pleased with component position ing, leg length and offset. Prior to closure, we soaked the operative area with a betadine solution as we had done on several previous occasions throughout the case. We also sprinkle d in 1 gram vancomycin powder and 1.2 grams of tobramycin powder prior to closure. Followin g closure, the wound was dressed with Xeroform, gauze, dry gauze, fluffs, ABD and perforated tape. Anesthesia was terminated. Patient was transported to the recovery room in a stable condition. There were no immediate postoperative complications. BLOOD LOSS: About 500 mL BLOOD REPLACED: none. SPECIMENS: none. FINDINGS: Same as postoperative diagnosis. PROGNOSIS: good. documented in this encounter Plan of Treatment + + +--------+ + + | Name | Type | Priori | Associated Diagnoses | Order Schedule | | | | ty | | | + + +--------+ + + | Referral to Home | Outpatient | Routin | History of total | Ordered: 09/07/2019 | | Health - OUTPATIENT | Referral | e | hip replacement, | | | | | | unspecified | | | | | | laterality | | + + +--------+ + + documented as of this encounter Procedures + +--------+ + + + | Procedure Name | Priori | Date/Time | Associated Diagnosis | Comments | | | ty | | | | + +--------+ + + + | HEMOGLOBIN AND | Routin | 09/07/2019 | | Results for this | | HEMATOCRIT | e | 5:38 AM | | procedure are in the | | | | PST | | results section. | + +--------+ + + + | BASIC METABOLIC | Routin | 09/07/2019 | | Results for this | | PANEL | e | 5:38 AM | | procedure are in the | | | | PST | | results section. | + +--------+ + + + | HEMOGLOBIN AND | Routin | 09/06/2019 | | Results for this | | HEMATOCRIT | e | 5:48 AM | | procedure are in the | | | | PST | | results section. | + +--------+ + + + | BASIC METABOLIC | Routin | 09/06/2019 | | Results for this | | PANEL | e | 5:48 AM | | procedure are in the | | | | PST | | results section. | + +--------+ + + + | XR PELVIS 1 OR 2 VW | Routin | 09/05/2019 | | Results for this | | | e | 2:49 PM | | procedure are in the | | | | PST | | results section. | + +--------+ + + + | FL JOYCE STATS NO | Routin | 09/05/2019 | | Results for this | | CHARGE | e | 2:02 PM | | procedure are in the | | | | PST | | results section. | + +--------+ + + + | ARTHROPLASTY HIP | | 09/05/2019 | Primary | | | ANTERIOR APPROACH | | 11:51 AM | osteoarthritis of | | | | | PST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 Right hip | | | | | | pain | | + +--------+ + + + +---+--------+ | | | | | Specia | | | l | | | Needs | | | | | | Depuy- | | | Mason | | | Embert | | | on | +---+--------+ + +--------+ +---+ + | ECG 12 LEAD | Routin | 09/05/2019 | | Results for this | | | e | 11:09 AM | | procedure are in the | | | | PST | | results section. | + +--------+ +---+ + documented in this encounter Results Hemoglobin and Hematocrit (09/07/2019 5:38 AM PST) + + + + + + | Component | Value | Ref Range | Performed | Pathologist | | | | | At | Signature | + + + + + + | Hematocrit | 27.6 (L) | 40.0 - 51.0 % | [facility] | | | | | | [facility] | | | | | | [facility] | | | | | [facility] - | | | | | | [facility]ATORY | | + + + + + + | Hemoglobin | 9.0 (L) | 13.5 - 18.0 | [facility] | | | | | g/dL | [facility] | | | | | | [facility] | | | | | | [facility] - | | | | | | LABORATORY | | + + + + + + + + | Specimen | + + | Blood | + + + + + + + | Performing | Address | City/State/Zipcode | Phone Number | | Organization | | | | + + + + + | [facility] | [address] | [place] | [phone] | | [facility] | | [id number] | | | - LABORATORY | | | | + + + + + Basic Metabolic Panel (09/07/2019 5:38 AM PST) + + + + + + | Component | Value | Ref Range | Performed | Pathologist | | | | | At | Signature | + + + + + + | Na | 135 (L) | 136 - 145 | [facility] | | | | | mmol/L | [facility] | | | | | | [facility] | | | | | | [facility] - | | | | | | LABORATORY | | + + + + + + | K | 4.0 | 3.4 - 5.1 | [facility] | | | | | mmol/L | [facility] | | | | | | [facility] | | | | | | [facility] - | | | | | | LABORATORY | | + + + + + + | Cl | 100 | 98 - 107 mmol/L | [facility] | | | | | | [facility] | | | | | | [facility] | | | | | | [facility] - | | | | | | LABORATORY | | + + + + + + | CO2 | 28 | 20 - 31 mmol/L | [facility] | | | | | [facility] | | | | | | [facility] | | | | | | [facility] - | | | | | | LABORATORY | | + + + + + + | Anion Gap | 7 | 3 - 16 mmol/L | [facility] | | | | | | [facility] | | | | | | [facility] | | | | | | [facility] - | | | | | | LABORATORY | | + + + + + + | Glucose | 99 | 60 - 106 mg/dL | [facility] | | | | | | [facility] | | | | | | [facility] | | | | | | [facility] - | | | | | | LABORATORY | | + + + + + + | BUN | 18 | 9 - 23 mg/dL | [facility] | | | | | | [facility] | | | | | | [facility] | | | | | | [facility] - | | | | | | LABORATORY | | + + + + + + | Creatinine | 0.92 | 0.70 - 1.30 | [facility] | | | | | mg/dL | [facility] | | | | | | MEDICAL | | | | | | CENTER - | | | | | | LABORATORY | | + + + + + + | eGFR, | >60Comment: GLOMERULAR | >=60 | [facility] | | | non- | FILTRATION | mL/min/1.73m2 | [facility] | | | [place] | RATE,ESTIMATED | | MEDICAL | | | | mL/min/1.12o1[place]uka than | | CENTER - | | | | 60 Chronic kidney | | LABORATORY | | | | disease,if found over a | | | | | | 3-month period.Less than | | | | | | 15 Kidney failureFor | | | | | | | | | | | | Americans,multiply the | | | | | | calculated GFR by 1.21. | | | | | | | | | | + + + + + + | Calcium | 8.3 (L) | 8.7 - 10.4 | [facility] | | | | | mg/dL | [facility] | | | | | | MEDICAL | | | | | | CENTER - | | | | | | LABORATORY | | + + + + + + | BUN/Creatin | 19.6 | | [facility] | | | ine Ratio | | | [facility] | | | | | | [facility]ICAL | | | | | | CENTER - | | | | | | LABORATORY | | + + + + + + + + | Specimen | + + | Blood | + + + + + + + | Performing | Address | City/State/Zipcode | Phone Number | | Organization | | | | + + + + + | [facility] | [address] | [place], [place] | [phone] | | [facility] | | [id number] | | | - LABORATORY | | | | + + + + + Hemoglobin and Hematocrit (09/06/2019 5:48 AM PST) + + + + + + | Component | Value | Ref Range | Performed | Pathologist | | | | | At | Signature | + + + + + + | Hematocrit | 31.1 (L) | 40.0 - 51.0 % | [facility] | | | | | | [facility] | | | | | | [facility] | | | | | | [facility] - | | | | | | LABORATORY | | + + + + + + | Hemoglobin | 10.3 (L) | 13.5 - 18.0 | [facility] | | | | | g/dL | [facility] | | | | | | MEDICAL | | | | | | CENTER - | | | | | | LABORATORY | | + + + + + + + + | Specimen | + + | Blood | + + + + + + + | Performing | Address | City/State/Zipcode | Phone Number | | Organization | | | | + + + + + | [facility] | [address] | [place] | [phone] | | [facility] | | [address] | | | - LABORATORY | | | | + + + + + Basic Metabolic Panel (09/06/2019 5:48 AM PST) + + + + + + | Component | Value | Ref Range | Performed | Pathologist | | | | | At | Signature | + + + + + + | Na | 133 (L) | 136 - 145 | [facility] | | | | | mmol/L | [facility] | | | | | | MEDICAL | | | | | | CENTER - | | | | | | LABORATORY | | + + + + + + | K | 3.9 | 3.4 - 5.1 | [facility] | | | | | mmol/L | [facility] | | | | | | [facility]ICAL | | | | | | CENTER - | | | | | | LABORATORY | | + + + + + + | Cl | 97 (L) | 98 - 107 mmol/L | [facility] | | | | | [facility] | [facility] | | [facility] | | | | | | [facility] - | | | | | | LABORATORY | | + + + + + + | CO2 | 27 | 20 - 31 mmol/L | [facility] | | | | | | [facility] | | | | | | [facility]ICAL | | | | | | CENTER - | | | | | | LABORATORY | | + + + + + + | Anion Gap | 9 | 3 - 16 mmol/L | [facility] | | | | | | [facility] | | | [facility] | | [facility] | | | | | | [facility] - | | | | | | LABORATORY | | + + + + + + | Glucose | 126 (H) | 60 - 106 mg/dL | [facility] | | | | | | [facility] | | | | | | [facility]ICAL | | | | | | CENTER - | | | | | | LABORATORY | | + + + + + + | BUN | 16 | 9 - 23 mg/dL | [facility] | | | | | | [facility] | | | | | | MEDICAL | | | | | | CENTER - | | | | | | LABORATORY | | + + + + + + | Creatinine | 0.96 | 0.70 - 1.30 | [facility] | | | | | mg/dL | [facility] | | | | | | MEDICAL | | | | | | CENTER - | | | | | | LABORATORY | | + + + + + + | eGFR, | >60Comment: GLOMERULAR | >=60 | [facility] | | | non- | FILTRATION | mL/min/1.73m2 | [facility] | | | [place] | RATE,ESTIMATED | | MEDICAL | | | | mL/min/1.71s7Slxt than | | CENTER - | | | | 60 Chronic kidney | | LABORATORY | | | | disease,if found over a | | | | | | 3-month period.Less than | | | | | | 15 Kidney failureFor | | | | | | | | | | | | Americans,multiply the | | | | | | calculated GFR by 1.21. | | | | | | | | | | + + + + + + | Calcium | 8.3 (L) | 8.7 - 10.4 | [facility] | | | | | mg/dL | [facility] | | | | | | MEDICAL | | | | | | CENTER - | | | | | | LABORATORY | | + + + + + + | BUN/Creatin | 16.7 | | [facility] | | | ine Ratio | | | [facility] | | | | | | MEDICAL | | | | | | CENTER - | | | | | | LABORATORY | | + + + + + + + + | Specimen | + + | Blood | + + + + + + + | Performing | Address | City/State/Zipcode | Phone Number | | Organization | | | | + + + + + | [facility] | [address] | [place], [place] | [phone] | | [facility] | | [address] | | | - LABORATORY | | | | + + + + + XR Pelvis 1 or 2 Vw (09/05/2019 2:49 PM PST) + + | Specimen | + + | | + + + + + | Impressions | Performed At | + + + | No radiographic evidence for an immediate complication. | [facility] | | Dictated and Signed by: Chauncey Rivers MD Electronically signed: | | | 09/05/2019 3:39 PM | | + + + + + + | Narrative | Performed At | + + + | EXAM:XR PELVIS 1 OR 2 VW CLINICAL HISTORY: s/p total hip | [facility] | | arthroplasty COMPARISON: L 13-19 FINDINGS: Frontal view of the | | | pelvis. There are total hip arthroplasty changes on the right. | | | There is no evidence for a component related complication. There | | | are expected operative changes in the soft tissues. | | + + + + + | Procedure Note | + + | Benito, Rad Results In - 09/05/2019 3:42 PM PST EXAM:XR PELVIS 1 OR 2 VW | | | | CLINICAL HISTORY: s/p total hip arthroplasty | | | | COMPARISON: 13-19 | | | | FINDINGS: Frontal view of the pelvis. There are total hip arthroplasty changes | | on the right. There is no evidence for a component related complication. There | | are expected operative changes in the soft tissues. | | | | IMPRESSION: | | | | No radiographic evidence for an immediate complication. | | | | Dictated and Signed by: Chauncey Rivers MD | | Electronically signed: 09/05/2019 3:39 PM | + + + +---------+ + + | Performing | Address | City/State/Zipcode | Phone Number | | Organization | | | | + +---------+ + + | [facility] | | | | + +---------+ + + [place] [facility] No Charge (09/05/2019 2:02 PM PST) [...] | | | + +---------+ + + ECG 12 lead (09/05/2019 11:09 AM PST) + + + + + + | Component | Value | Ref Range | Performed | Pathologist | | | | | At | Signature | + + + + + + | VENTRICULAR | 48 | BPM | [facility] | | | RATE EKG | | | | | + + + + + + | ATRIAL RATE | 48 | BPM | [facility] | | + + + + + + | P-R | 262 | ms | [facility] | | | INTERVAL | | | | | + + + + + + | QRS | 160 | ms | [facility] | | | DURATION | | | | | + + + + + + | Q-T | 462 | ms | [facility] | | | INTERVAL | | | | | + + + + + + | Q-T | 412 | ms | [facility] | | | INTERVAL | | | | | | (CORRECTED) | | | | | + + + + + + | P WAVE AXIS | 85 | degrees | [facility] | | + + + + + + | QRS AXIS | -64 | degrees | [facility] | | + + + + + + | T AXIS | -46 | degrees | [facility] | | + + + + + + | INTERPRETAT | Sinus bradycardia with | | [facility] | | | ION TEXT | marked sinus arrhythmia | | | | | | with 1st degree AV | | | | | | blockRight bundle branch | | | | | | blockLeft anterior | | | | | | fascicular blockT wave | | | | | | abnormality, consider | | | | | | anterolateral ischemiaT | | | | | | wave abnormality, | | | | | | consider inferior | | | | | | ischemiaAbnormal ECGWhen | | | | | | compared with ECG of | | | | | | 11-AUG-2019 | | | | | | 11:05,Previous ECG has | | | | | | undetermined rhythm, | | | | | | needs reviewT wave | | | | | | inversion now evident in | | | | | | Anterolateral | | | | | | leadsInferior T wave | | | | | | inversion is more | | | | | | evidentConfirmed by | | | | | | AISLINN MCCORMICK MD ([id number]) | | | | | | on 09/06/2019 6:21:02 AM | | | | + + + + + + + + | Specimen | + + | | + + + + + | Narrative | Performed At | + + + | | | + + + + +---------+ + + | Performing | Address | City/State/Zipcode | Phone Number | | Organization | | | | + +---------+ + + | [facility] | | | | + +---------+ + + documented in this encounter Visit Diagnoses + + | Diagnosis | + + | History of total hip replacement, unspecified laterality - Primary | + + | Primary osteoarthritis of right hip Primary localized osteoarthrosis, pelvic region | | and thigh | + + | Right hip pain Pain in joint, pelvic region and thigh | + + | At risk for aspiration Other specified conditions influencing health status | + + | Anesthesia complication, initial encounter | + + documented in this encounter Admitting Diagnoses + + | Diagnosis | + + | Primary osteoarthritis of right hip Primary localized osteoarthrosis, pelvic region | | and thigh | + + | Right hip pain Pain in joint, pelvic region and thigh | + + documented in this encounter Administered Medications + +--------+ + +------+------+ | Medication Order | MAR | Action | Dose | Rate | Site | | | Action | Date | | | | + +--------+ + +------+------+ | acetaminophen (TYLENOL) tablet | Given | 09/05/19 | 1,000 mg | | | | 1,000 mg 1,000 mg, Oral, ONCE, | | 20 10:55 | | | | | 09/05/19 at 1045, For 1 dose, | | AM PST | | | | | Pre-op | | | | | | + +--------+ + +------+------+ +---+---+ | | | +---+---+ + +-------+ +--------+---+---+ | acetaminophen (TYLENOL) tablet | Given | 09/07/19 | 650 mg | | | | 650 mg 650 mg, Oral, EVERY 4 | | 20 7:17 | | | | | HOURS PRN, Pain, Fever, Starting | | AM PST | | | | | 09/05/19 at 1602, Post-op/Phase | | | | | | | II | | | | | | + +-------+ +--------+---+---+ +-------+ +--------+---+---+ | Given | 09/06/19 | 650 mg | | | | | 20 4:15 | | | | | | PM PST | | | | +-------+ +--------+---+---+ | Given | 09/06/19 | 650 mg | | | | | 20 12:11 | | | | | | PM PST | | | | +-------+ +--------+---+---+ +---+---+ | | | +---+---+ + +---------+ +-----+ +---+ | ceFAZolin (ANCEF, KEFZOL) 100 | New Bag | 09/06/19 | 2 g | 40 mL/hr | | | mg/mL IV syringe 2 g 2 g, | | 20 6:16 | | | | | Intravenous, Administer over 30 | | AM PST | | | | | Minutes, EVERY 6 HOURS (4 times | | | | | | | per day), First dose on Wed | | | | | | | 09/05/19 at 1800, For 3 doses, | | | | | | | Start 8 hours after previous | | | | | | | dose. Last dose to be given | | | | | | | within 24 hours of surgery end | | | | | | | time, Post-op/Phase II, | | | | | | | Indications: Surgical Prophylaxis | | | | | | + +---------+ +-----+ +---+ +---------+ +-----+ +---+ | New Bag | 09/05/19 | 2 g | 40 mL/hr | | | | 20 11:58 | | | | | | PM PST | | | | +---------+ +-----+ +---+ | New Bag | 09/05/19 | 2 g | 40 mL/hr | | | | 20 5:59 | | | | | | PM PST | | | | +---------+ +-----+ +---+ +---+---+ | | | +---+---+ + +-------+ +--------+---+---+ | cyanocobalamin (VITAMIN B-12) | Given | 09/07/19 | 1,000 | | | | tablet 1,000 mcg 1,000 mcg, | | 20 8:25 | mcg | | | | Oral, DAILY, First dose on Wed | | AM PST | | | | | 09/06/19 at 0900, Post-op/Phase II | | | | | | + +-------+ +--------+---+---+ +-------+ +--------+---+---+ | Given | 09/06/19 | 1,000 | | | | | 20 8:14 | mcg | | | | | AM PST | | | | +-------+ +--------+---+---+ +---+---+ | | | +---+---+ + +-------+ +-------+---+---+ | cyclobenzaprine (FLEXERIL) | Given | 09/07/19 | 10 mg | | | | tablet 10 mg 10 mg, Oral, EVERY | | 20 7:17 | | | | | 8 HOURS PRN, Muscle spasms, | | AM PST | | | | | Starting Wed09/05/19 at 1602, | | | | | | | Post-op/Phase II | | | | | | + +-------+ +-------+---+---+ +---+---+ | | | +---+---+ + +-------+ +--------+---+---+ | docusate sodium (COLACE) | Given | 09/07/19 | 200 mg | | | | capsule 200 mg 200 mg, Oral, 2 | | 20 8:24 | | | | | TIMES DAILY, First dose on Wed | | AM PST | | | | | 09/05/19 at 2100, First line agent | | | | | | | for constipation, Post-op/Phase | | | | | | | II | | | | | | + +-------+ +--------+---+---+ +-------+ +--------+---+---+ | Given | 09/06/19 | 200 mg | | | | | 20 8:31 | | | | | | PM PST | | | | +-------+ +--------+---+---+ | Given | 09/06/19 | 200 mg | | | | | 20 8:13 | | | | | | AM PST | | | | +-------+ +--------+---+---+ +---+---+ | | | +---+---+ + +-------+ +-------+---+---+ | escitalopram (LEXAPRO) tablet | Given | 09/07/19 | 40 mg | | | | 40 mg 40 mg, Oral, DAILY, First | | 20 8:24 | | | | | dose on Wed09/06/19 at 0900, | | AM PST | | | | | Post-op/Phase II | | | | | | + +-------+ +-------+---+---+ +-------+ +-------+---+---+ | Given | 09/06/19 | 40 mg | | | | | 20 8:13 | | | | | | AM PST | | | | +-------+ +-------+---+---+ +---+---+ | | | +---+---+ + +-------+ +--------+---+---+ | fentaNYL (PF) injection 25 mcg | Given | 09/05/19 | 25 mcg | | | | 25 mcg, Intravenous, EVERY 5 MIN | | 20 2:36 | | | | | PRN, Pain, Initial postop urgent | | PM PST | | | | | pain or escalating pain, | | | | | | | Starting 09/05/19 at 1430, For | | | | | | | 8 doses, Every 5 minutes PRN for | | | | | | | initial postop urgent pain., | | | | | | | Recovery/Phase I | | | | | | + +-------+ +--------+---+---+ +---+---+ | | | +---+---+ + +-------+ +------+---+---+ | finasteride (PROSCAR) tablet 5 | Given | 09/07/19 | 5 mg | | | | mg 5 mg, Oral, DAILY, First dose | | 20 8:25 | | | | | on Wed09/06/19 at 0900, | | AM PST | | | | | Reproductive Risk: Use | | | | | | | appropriate handling | | | | | | | precautions., Post-op/Phase II | | | | | | + +-------+ +------+---+---+ +-------+ +------+---+---+ | Given | 09/06/19 | 5 mg | | | | | 20 8:14 | | | | | | AM PST | | | | +-------+ +------+---+---+ +---+---+ | | | +---+---+ + +-------+ +-------+---+---+ | furosemide (LASIX) tablet 20 mg | Given | 09/07/19 | 20 mg | | | | 20 mg, Oral, DAILY, First dose | | 20 8:25 | | | | | on Wed09/06/19 at 0900, | | AM PST | | | | | Post-op/Phase II | | | | | | + +-------+ +-------+---+---+ +-------+ +-------+---+---+ | Given | 09/06/19 | 20 mg | | | | | 20 8:13 | | | | | | AM PST | | | | +-------+ +-------+---+---+ +---+---+ | | | +---+---+ + +-------+ +--------+---+---+ | gabapentin (NEURONTIN) capsule | Given | 09/05/19 | 600 mg | | | | 600 mg 600 mg, Oral, ONCE, Tue | | 20 10:54 | | | | | 09/05/19 at 1100, For 1 dose, | | AM PST | | | | | Pre-op | | | | | | + +-------+ +--------+---+---+ +---+---+ | | | +---+---+ + +-------+ +--------+---+---+ | gabapentin (NEURONTIN) capsule | Given | 09/07/19 | 600 mg | | | | 600 mg 600 mg, Oral, 3 TIMES | | 20 8:24 | | | | | DAILY, First dose on Wed09/05/19 | | AM PST | | | | | at 1630, Post-op/Phase II | | | | | | + +-------+ +--------+---+---+ +-------+ +--------+---+---+ | Given | 09/06/19 | 600 mg | | | | | 20 8:31 | | | | | | PM PST | | | | +-------+ +--------+---+---+ | Given | 09/06/19 | 600 mg | | | | | 20 2:53 | | | | | | PM PST | | | | +-------+ +--------+---+---+ +---+---+ | | | +---+---+ + +-------+ +-------+---+---+ | ketorolac (TORADOL) injection | Given | 09/05/19 | 15 mg | | | | 15 mg 15 mg, Intravenous, EVERY | | 20 3:11 | | | | | 6 HOURS (4 times per day), First | | PM PST | | | | | dose on Wed09/05/19 at 1515, For 5 | | | | | | | days, Recovery/Phase I | | | | | | + +-------+ +-------+---+---+ +---+---+ | | | +---+---+ + +-------+ +-------+---+---+ | ketorolac (TORADOL) injection | Given | 09/06/19 | 15 mg | | | | 15 mg 15 mg, Intravenous, EVERY | | 20 10:35 | | | | | 6 HOURS PRN, Pain, Starting Tue | | PM PST | | | | | 09/05/19 at 2100, For 6 doses | | | | | | + +-------+ +-------+---+---+ +-------+ +-------+---+---+ | Given | 09/06/19 | 15 mg | | | | | 20 12:17 | | | | | | PM PST | | | | +-------+ +-------+---+---+ | Given | 09/06/19 | 15 mg | | | | | 20 6:16 | | | | | | AM PST | | | | +-------+ +-------+---+---+ +---+---+ | | | +---+---+ + +---------+ +---+---+---+ | lactated ringers (LR) infusion | New Bag | 09/05/19 | | | | | at 10-100 mL/hr, Intravenous, | | 20 1:17 | | | | | CONTINUOUS, Starting 09/05/19 | | PM PST | | | | | at 1045, TKO., Pre-op | | | | | | + +---------+ +---+---+---+ +---------+ +---+-------+---+ | New Bag | 09/05/19 | | 100 | | | | 20 11:36 | | mL/hr | | | | AM PST | | | | +---------+ +---+-------+---+ +---+---+ | | | +---+---+ + +---------+ +---+-------+---+ | lactated ringers (LR) infusion | New Bag | 09/06/19 | | 100 | | | at 100 mL/hr, Intravenous, FIXED | | 20 3:51 | | mL/hr | | | VOLUME (see admin instruction), | | AM PST | | | | | Starting 09/05/19 at 1645, For | | | | | | | 20 hours, Saline lock IV when | | | | | | | taking PO well after 2 liters, | | | | | | | Post-op/Phase II | | | | | | + +---------+ +---+-------+---+ +---------+ +---+-------+---+ | New Bag | 09/05/19 | | 100 | | | | 20 4:54 | | mL/hr | | | | PM PST | | | | +---------+ +---+-------+---+ +---+---+ | | | +---+---+ + +-------+ +---------+---+---+ | levothyroxine (SYNTHROID) | Given | 09/07/19 | 175 mcg | | | | tablet 175 mcg 175 mcg, Oral, | | 20 7:07 | | | | | DAILY BEFORE BREAKFAST, First | | AM PST | | | | | dose on Wed09/06/19 at 0700, Give | | | | | | | before breakfast., Post-op/Phase | | | | | | | II | | | | | | + +-------+ +---------+---+---+ +-------+ +---------+---+---+ | Given | 09/06/19 | 175 mcg | | | | | 20 6:15 | | | | | | AM PST | | | | +-------+ +---------+---+---+ +---+---+ | | | +---+---+ + +-------+ +-------+---+---+ | lisinopril (PRINIVIL, ZESTRIL) | Given | 09/07/19 | 10 mg | | | | tablet 10 mg 10 mg, Oral, DAILY, | | 20 8:25 | | | | | First dose on Wed09/06/19 at | | AM PST | | | | | 0900, Post-op/Phase II | | | | | | + +-------+ +-------+---+---+ +-------+ +-------+---+---+ | Given | 09/06/19 | 10 mg | | | | | 20 8:13 | | | | | | AM PST | | | | +-------+ +-------+---+---+ +---+---+ | | | +---+---+ + +-------+ +-------+---+---+ | oxyCODONE (ROXICODONE) tablet | Given | 09/07/19 | 15 mg | | | | 5-15 mg 5-15 mg, Oral, EVERY 3 | | 20 11:26 | | | | | HOURS PRN, Pain, Starting Tue | | AM PST | | | | | 09/05/19 at 1602, First dose must | | | | | | | be the lowest dose, can titrate | | | | | | | to effective dose by repeat of | | | | | | | lowest dose every 60 minutes prn | | | | | | | pain, may not exceed maximum dose | | | | | | | ordered per interval. Use Pasero | | | | | | | Sedation Scale., Post-op/Phase | | | | | | | II | | | | | | + +-------+ +-------+---+---+ +-------+ +-------+---+---+ | Given | 09/07/19 | 15 mg | | | | | 20 8:24 | | | | | | AM PST | | | | +-------+ +-------+---+---+ | Given | 09/07/19 | 15 mg | | | | | 20 4:59 | | | | | | AM PST | | | | +-------+ +-------+---+---+ +---+---+ | | | +---+---+ + +-------+ +--------+---+---+ | potassium chloride (KLOR-CON) | Given | 09/07/19 | 10 mEq | | | | ER tablet 10 mEq 10 mEq, Oral, | | 20 8:24 | | | | | DAILY, First dose on Wed09/06/19 | | AM PST | | | | | at 0900, May take with food to | | | | | | | decrease GI upset., Post-op/Phase | | | | | | | II | | | | | | + +-------+ +--------+---+---+ +-------+ +--------+---+---+ | Given | 09/06/19 | 10 mEq | | | | | 20 8:14 | | | | | | AM PST | | | | +-------+ +--------+---+---+ +---+---+ | | | +---+---+ + +-------+ +-------+---+---+ | primidone (MYSOLINE) tablet 50 | Given | 09/06/19 | 50 mg | | | | mg 50 mg, Oral, NIGHTLY, First | | 20 8:30 | | | | | dose on Wed09/05/19 at 2100, | | PM PST | | | | | Post-op/Phase II | | | | | | + +-------+ +-------+---+---+ +-------+ +-------+---+---+ | Given | 09/05/19 | 50 mg | | | | | 20 8:31 | | | | | | PM PST | | | | +-------+ +-------+---+---+ +---+---+ | | | +---+---+ + +-------+ +-------+---+---+ | rivaroxaban (XARELTO) tablet 10 | Given | 09/07/19 | 10 mg | | | | mg 10 mg, Oral, DAILY, First | | 20 8:25 | | | | | dose on Wed09/06/19 at 1000, | | AM PST | | | | | Post-op/Phase II | | | | | | + +-------+ +-------+---+---+ +-------+ +-------+---+---+ | Given | 09/06/19 | 10 mg | | | | | 20 8:14 | | | | | | AM PST | | | | +-------+ +-------+---+---+ +---+---+ | | | +---+---+ + +-------+ +--------+---+---+ | senna (SENOKOT) tablet 8.6 mg | Given | 09/06/19 | 8.6 mg | | | | 8.6 mg, Oral, 2 TIMES DAILY PRN, | | 20 8:13 | | | | | Constipation, Starting Wed09/05/19 | | AM PST | | | | | at 1602, If docusate ineffective | | | | | | | or not ordered, Post-op/Phase II | | | | | | + +-------+ +--------+---+---+ +---+---+ | | | +---+---+ + +-------+ +--------+---+---+ | tamsulosin (FLOMAX) capsule 0.8 | Given | 09/06/19 | 0.8 mg | | | | mg 0.8 mg, Oral, NIGHTLY, First | | 20 8:31 | | | | | dose on Wed09/05/19 at 2100, Do | | PM PST | | | | | not crush or chew capsule. If | | | | | | | unable to swallow, may open | | | | | | | capsule and sprinkle over acidic | | | | | | | soft food (applesauce, yogurt) or | | | | | | | in a small quantity of acidic | | | | | | | fruit juice (orange, grape). | | | | | | | Administer immediately (do not | | | | | | | allow granules to dissolve). Do | | | | | | | not administer via tube routes., | | | | | | | Post-op/Phase II | | | | | | + +-------+ +--------+---+---+ +-------+ +--------+---+---+ | Given | 09/05/19 | 0.8 mg | | | | | 20 8:31 | | | | | | PM PST | | | | +-------+ +--------+---+---+ +---+---+ | | | +---+---+ + +-------+ +--------+---+---+ | theophylline (RUBIA-24) 24 hr | Given | 09/07/19 | 400 mg | | | | capsule 400 mg 400 mg, Oral, | | 20 8:24 | | | | | DAILY, First dose on Wed09/06/19 | | AM PST | | | | | at 0900, Post-op/Phase II | | | | | | + +-------+ +--------+---+---+ +-------+ +--------+---+---+ | Given | 09/06/19 | 400 mg | | | | | 20 8:13 | | | | | | AM PST | | | | +-------+ +--------+---+---+ +---+---+ | | | +---+---+ documented in this encounter
--- OUTSIDE RECORDS SUMMARY | ~2020-06-17 | XMS | Encounter Summary ---
Demographics + + + | Address | [address] | | | [place] [address] | + + + | Home Phone | | + + + | Preferred Language | Unknown | + + + | Marital Status | | + + + | Latter Day Affiliation | 1013 | + + + | Race | White | + + + | Ethnic Group | Not or | + + + Author + + + | Author | [facility] | | | and [place] | + + + | Organization | [facility] | [...] [place] | | | | | [address] | | + + + + + | Mason Fleming | ECON | Unknown | | + + + + + Care Team Providers + +------+ + | Care Credit Underwriter Name | Role | Phone | + [...] + + | Closed | Specialty | Sports | Diagnoses | [facility], | [facility] | | | Services | Medicine / | Gluteal | MICHELLE Kenny | Family | | | Required | Family | tendonitis | [address] | Medicine | | | | Medicine | of right | [address] | [place] | | | | | buttock | [address] | [address] | | | | | Ischial | [place], | [address] [place] | | | | | bursitis of | [place] [address] | [place] | | | | | left side | Phone: | [phone] | | | | | | [phone] | Phone: | | | | | | Fax: | [phone] | | | | | | [phone] | Fax: | | | | | | | [phone] | +--------+ + + + + + Reason for Visit + + + | Reason | Comments | + + + | Follow-up | Back Pain | + + + Encounter Details +--------+---------+ + + + | Date | Type | Department | Care Team | Description | +--------+---------+ + + + | 01/04/ | Office | [facility] | Efraín Turk, | Gluteal tendonitis | | 2019 | Visit | PHYSIATRY [address] | PA-C [address] | of right buttock | | | | [address] | [address] [place] | (Primary Dx); | | | | [place], [place] | [place] [address] | Ischial bursitis of | | | | [address] | [phone] | left side; Thoracic | | | | [phone] | | spine pain; Right | | | | | | hip pain | +--------+---------+ + + + Social History [...] + + + | Blood Pressure | 120/53 | 01/04/2019 1:37 PM | | | | | PDT | | + + + + + | Pulse | 40 | 01/04/2019 1:37 PM | | | | | PDT [...] Weight | 119.7 kg (264 lb) | 01/04/2019 1:37 PM | | | | | PDT | | + + + + + | Height | 181.6 cm (5' 11.5") | 01/04/2019 1:37 PM | | | | | PDT | | + + + + + | Body Mass Index | 36.31 | 01/04/2019 1:37 PM | | | | | PDT | | + + + + + documented in this encounter Patient Instructions Patient Instructions Efraín Turk PA-C - 01/04/2019 2:[address] Jonah allen or ultrasound guided injections. xrays ordered at [facility] We will call with xray results. follow up in 3 months or as needed. Back Safety: Basics of Good Posture Good posture helps protect you from injury. It also increases your comfort. Aim for good po sture throughout the day. Check your posture The human body works best when it is properly aligned. To improve your standing posture, fo llow these steps: Take a moment to close your eyes and feel your body. Then breathe deeply and relax your shoulders, hips, and knees. Now, from the very top of your head, lift up just a bit. Think of a line linking your ea rs, shoulders, hips, and ankles. Adjust your body to follow the line. You may need to relax your hips and tuck your buttocks under a bit. Next, take a look at yourself in a mirror. Is one ear, shoulder, or hip higher than the other? They should be level. Check how you sit When you sit properly, pressure on your back is reduced. Try these steps: Sit so that the curve of your lower back fits easily against the chair. Keep your gaze l evel. Support your feet. They should be flat on the floor or on a footrest. Your knees should be level with your hips. Adjust the chair height as needed. Sit so your forearms are level with the work surface. Proper posture helps When your back is aligned, it s more likely to stay safe throughout the day. Standing in place. Rest one foot on a stool or low box to ease pressure on your lower ba ck. Switch feet often. If you can, adjust the height of your work surface so your neck and s houlders aren t under strain. Driving. Sit close enough to the steering wheel to keep your knees slightly bent. For co mfort, your knees should be level with your hips or just a bit lower. Sit as straight as you can. The curve of your lower back should be fully supported. Walking. Stand tall and walk with your head up. Let your arms swing while you walk. This helps relax muscles. Wear shoes that fit and support your feet. If you will be standing or walking for a long time, don t wear high heels. Sitting and sleeping. Choose your furniture with care. Make sure it s not causing or i ncreasing your back pain. Chairs should allow for comfortable, correct sitting posture. Use pillows for added support if needed. Your bed should support your back s natural curves wi thout being too hard or too soft. Date Last Reviewed: 12/28/201719998952-7492 [employer]. [address] [place] [address]. All righ ts reserved. This information is not intended as a substitute for professional medical care. Always follow your healthcare professional's instructions. documented in this encounter Progress Notes Efraín Turk PA-C - 01/04/2019 2:00 PM PDTFormatting of this note might be different fro m the original. CHIEF COMPLAINT: Chief Complaint Patient presents with Follow-up Back Pain HISTORY OF PRESENT ILLNESS: Piter Fleming is a 73 y.o. male being seen today in follow-up for complaints of low b ack pain/buttocks pain. He underwent a very extensive lumbar fusion in 2015. He recently h ad a LEFT ischial tuberosity bursa injection and RIGHT intra-articular hip injection on 10/19 18 which he reports significant relief for only 1 month. He is here today to discuss possib le repeat injections. He also complains of midline back pain around the T8 region that is w orse with twisting and in the morning. He continues to have pain in the region of the "sitting bones" with prolonged sitting, left > right. He is also experiencing right sided thigh pain and right lateral gluteal pain. Today, Mr. Fleming rates his pain as 6-7 on a scale of 0-10. He indicates that the pain is dependent on sitting and movement. He describes the pain as an aching/sharp pain. His sympt oms worsen with prolonged sitting. His symptoms improve with change of position. The patient does not describe numbness of the bilateral legs. He does report weakness of the bilateral lower extremities, worse to the right leg (he indicates right drop foot). He reports weakness is a chronic symptoms, post neurosurgical intervention. He does not have b owel and bladder dysfunction. He does not have saddle anesthesia. Treatments for these complaints have included physical therapy and medication including hyd rocodone/apap. Patient's medications, allergies, past medical, surgical, social and family histories were reviewed and updated as appropriate. CURRENT MEDICATIONS: Current Outpatient Medications Medication Sig Dispense Refill cyclobenzaprine (FLEXERIL) 10 [...] HEMATOLOGIC/LYMPHATIC: No abnormal bleeding PHYSICAL EXAMINATION: Vitals: 01/04/19 1337 BP: 120/53 Pulse: (!) 40 PainSc: 3 PainLoc: Back Body mass index is 36.31 kg/m. GENERAL: [...] has no apparent deficits with short or computer terminal operator memory. He has appropriate fund of knowledge Cranial nerves 2-12 appear grossly intact. Sensory exam - Mildly decreased sensation to light touch to bilateral lower extremities. De creased strength noted in right L5 dermatome distribution. MOTOR EXAM: (5 IS NORMAL) * Indicates pain limited MUSCLE/ MOVEMENT: RIGHT LEFT Hip Flexion 5 5 Knee Flexion 5 5 Knee Extension 5 5 Extensor Hallicus Longus 5 5 Ankle Dorsiflexion 4 5 Plantarflexion 5 5 MUSCULOSKELETAL Lumbar Spine: Straight leg raise and slump-sit are negative. Memo's man euver and impingement testing were negative for RIGHT groin pain. There was NO tenderness to palpation over the sacral sulci. The patient localized the majority of the pain to the b ilateral ischial bursa, L>R. Tenderness to palpation at posterior trochanteric bursa region . Lumbar facet loading was neg. Strength testing as above. There was no redness, effusion, warmth or joint line tenderness in the knees or ankles. Imaging review: Lumbar x-ray completed earlier today shows stable lumbar fusion with hardware extending fro m L1-S1. ASSESSMENT: 1. Gluteal tendonitis of right buttock 2. Ischial bursitis of left side 3. Thoracic spine pain 4. Right hip pain PLAN: 1) Today we discussed the patient's differential diagnosis with the likely primary issue be ing Left-sided initial bursitis and left hip pain. Patient's description of symptoms, phys ical exam, and imaging suggest this diagnosis at this time. 2) I counseled patient on treatment options which included conservative self management usi ng OTC NSAIDs/Ice and heat packs, physical therapy, prescription medications, epidural stero id injection, neuromodulation devices, as well as possible surgical intervention. 3) Imaging: Hip x-rays have been requested from patient's orthopedist in [place]. 4) The patient has had significant conservative care including medications (NSAIDS and narc otics), PT (multiple sessions over the years) and home care rn. Unfortunately Piter Richardson continues to have significant discomfort. It appears to me that the pain is prim arily coming from RIGHT glute tendonitis and left ischial tuberosity bursitis. Referral to Dr Mckenzie for US guided injections to see if he can better target these re gions as we have had only partial success with FL guided injections as of late (~1 month of relief). Right hip xray ordered. Thoracic xray ordered. If facet arthritis appreciated, a referral to Dr Bosch for MBB/R FA will be placed. 5) Patient will follow up with me as needed. 6) If current treatment plan is insufficient for symptom relief we could try SCS trial as t he next therapy option. I spent 30 minutes in visit with Piter Fleming today with the majority of time spent counselling the patient on his diagnosis, options for his care, and coordinating his care. ELECTRONICALLY EDITED AND SIGNED BY: Robb Eisenbergtronically signed by Efraín greenwood PA-C at 01/04/2019 2:28 PM PDTdocumented in this encounter Plan of Treatment + +---------+--------+ + + | Name | Type | Priori | Associated Diagnoses | Order Schedule | | | | ty | | | + +---------+--------+ + + | XR Thoracic Spine 2 | Imaging | Routin | Thoracic spine | Expected: | | Vw | | e | pain | 01/04/2019, Expires: | | | | | | 01/05/2020 | + +---------+--------+ + + | XR Hip Right 2-3 | Imaging | Routin | Right hip pain | Expected: | | Views | | e | | 01/04/2019, Expires: | | | | | | 01/05/2020 | + +---------+--------+ + + + + +--------+ + + | Name | Type | Priori | Associated Diagnoses | Order Schedule | | | | ty | | | + + +--------+ + + | Dr Mckenzie Referral | Outpatient | Routin | Gluteal tendonitis | Ordered: 01/04/2019 | | | Referral | e | of right buttock | | | | | | Ischial bursitis of | | | | | | left side | | + + +--------+ + + documented as of this encounter Visit Diagnoses + + | Diagnosis | + + | Gluteal tendonitis of right buttock - Primary | + + | Ischial bursitis of left side | + + | Thoracic spine pain Pain in thoracic spine | + + | Right hip pain Pain in joint, pelvic region and thigh | + + documented in this encounter
--- OUTSIDE RECORDS SUMMARY | ~2020-06-17 | XMS | Encounter Summary ---
Demographics + + + | Address | [address] | | | [place] [address] | + + + | Home Phone | | + + + | Preferred Language | Unknown | + + + | Marital Status | | + + + | Baptist Affiliation | 1013 | + + + | Race | White | + + + | Ethnic Group | Not or | + + + Author + + + | Author | [facility] | | | and [place] | + + + | Organization | [facility] | | | [...] [place] | | | | | [address] | | + + + + + | Mason Fleming | ECON | Unknown | | + + + + + Care Team Providers + +------+ + | Care Igniter Capper Name | Role | Phone | + +------+ + | Michael Grijalva | PCP | | | MD | | | + +------+ + Reason for Visit +--------+--------+ + | Reason | Onset | Comments | | | Date | | +--------+--------+ + | Other | 07/03/ | | | | 2019 | | +--------+--------+ + Encounter Details +--------+ + + + + | Date | Type | Department | Care Team | Description | +--------+ + + + + | 07/03/ | Telephone | [facility] | Hollis Seaman, | Other | | 2018 | | ORTHOPEDIC SURGERY | [address] | | | | | [address] | [place] | | | | | [place] | [address] | | | | | [address] | | | | | | [phone] | | | +--------+ + + + [...] Encounter - Abimbola Malin Cert MA - 07/11/2019 2:07 PM PSTI called an d left Hap a message letting him know that per we have submitted for surgical aut horization. Once this is approved I will contact him to discuss surgical dates. Please see the referral/surgical request for any additional information. Electronically sig savanna by Meredith Golden MA at 07/11/2019 2:08 PM PSTTelephone Encounter - Abimbola Burnette Cert MA - 07/05/2019 8:27 AM PST*Deferred to Dr. Seaman* elephon e Encounter - Aziza Carty - 07/03/2019 1:56 PM PSTPatient called wanting to move for loja with right hip surgery. Patient stated that the pain is only getting worse. Patient brannon ld like to have surgery in August. Please call patient at [phone].Electronically mary d by Aziza Carty at 07/03/2019 2:03 PM PSTdocumented in this encounter Plan of Treatment Not on filedocumented as of this encounter Visit Diagnoses + + | Diagnosis | + + | Primary osteoarthritis of right hip - Primary Primary localized osteoarthrosis, | | pelvic region and thigh | + + | Right hip pain Pain in joint, pelvic region and thigh | + + documented in this encounter"
--- OUTSIDE RECORDS SUMMARY | ~2020-06-17 | XMS | Encounter Summary ---
Demographics + + + | Address | [address] | | | [place] [address] | + + + | Home Phone | | + + + | Preferred Language | Unknown | + + + | Marital Status | | + + + | Confucianist Affiliation | 1013 | + + + | Race | White | + + + | Ethnic Group | Not or | + + + Author + + + | Author | [facility] | | | and [place] [...] [place] | | | | | [address] | | + + + + + | Mason Fleming | ECON | Unknown | | + + + + + Care Team Providers + +------+ + | Care Securities Analyst Name | Role | Phone | + +------+ + | Michael Grijalva | PCP | | | MD | | | + +------+ + Encounter Details +--------+ + + + + | Date | Type | Department | Care Team | Description | +--------+ + + + + | 02/14/ | Orders Only | [facility] | Joshua Jorge MD | Lumbar radiculopathy | | 2016 | | NEUROSURGERY [address] | [address] | | | | | [address] | [place] [address] | | | | | [place] | [phone] | | | | | [address] | | | | | | [phone] | | | +--------+ + + + [...] + + + | XR LUMBAR SPINE 4 + | Routin | 05/11/2016 | Lumbar | Results for this | | VW | e | 12:17 PM | radiculopathy | procedure are in the | | | | PDT | | results section. | + +--------+ + + + documented in this encounter Results XR Lumbar Spine 4 + Vw (05/11/2016 12:17 PM PDT) + + | Specimen | + + | | + + + + + | Narrative | Performed At | + + + | EXAM:XR LUMBAR SPINE 4 + VW CLINICAL HISTORY: Back pain | [facility] | | COMPARISON: 03/09/2014. FINDINGS: 4 views of the lumbar spine. | [facility] | | There are 5 nonrib-bearing lumbar-type vertebral bodies. | [facility]ENTER | | Partial visualization of an S-shaped scoliosis through the thoracic | - IMAGING | | lumbar spine. There is right lateral listhesis of L3. In the | | | neutral lateral position there is slight retrolisthesis of L2. | | | There is diffuse disc narrowing and there are prominent marginal | | | osteophytes. Diffuse facet arthrosis. No interval compression | | | deformities. No abnormal translation with flexion or extension. | | | Hyperdense material seen posterior to the L3 vertebral body. This is | | | probably related to today's injection. IMPRESSION - | | | Scoliosis with progressive thoracolumbar spondylosis. No abnormal | | | translation with flexion-extension. Dictated and Signed by: Chauncey | | | Guerline Rivers MD Electronically signed: 05/11/2016 4:43 PM | | + + + + + | Procedure Note | + + | Benito, Rad Results In - 05/11/2016 4:46 PM PDT EXAM:XR LUMBAR SPINE 4 + VW | | | | CLINICAL HISTORY: Back pain | | | | COMPARISON: 03/09/2014. | | | | FINDINGS: 4 views of the lumbar spine. There are 5 nonrib-bearing lumbar-type | | vertebral bodies. | | | | Partial visualization of an S-shaped scoliosis through the thoracic lumbar | | spine. There is right lateral listhesis of L3. In the neutral lateral position | | there is slight retrolisthesis of L2. There is diffuse disc narrowing and there | | are prominent marginal osteophytes. Diffuse facet arthrosis. No interval | | compression deformities. No abnormal translation with flexion or extension. | | | | Hyperdense material seen posterior to the L3 vertebral body. This is probably | | related to today's injection. | | | | IMPRESSION - | | | | Scoliosis with progressive thoracolumbar spondylosis. | | | | No abnormal translation with flexion-extension. | | | | Dictated and Signed by: Chauncey Rivers MD | | Electronically signed: 05/11/2016 4:43 PM | + + + + + + + | Performing | Address | City/State/Zipcode | Phone Number | | Organization | | | | + + + + + | [facility] | [address] | [place] | [phone] | | [facility] | | [address] | | | - IMAGING | | | | + + + + + documented in this encounter Visit Diagnoses + + | Diagnosis | + + | Lumbar radiculopathy Thoracic or lumbosacral neuritis or radiculitis, unspecified | + + documented in this encounter"
--- OUTSIDE RECORDS SUMMARY | ~2020-06-17 | XMS | Encounter Summary ---
Demographics + + + | Address | [address] | | | [place] [address] | + + + | Home Phone [...] Author | [facility] | | | and [place] [...] [place] | | | | | [address] | | + + + + + | Mason Fleming | ECON | Unknown | | + + + + + Care Team Providers + +------+ + | Care Dry House Wheeler Name | Role | Phone | + +------+ + | Michael Grijalva | PCP | | | MD | | | + +------+ + Reason for Visit + +--------+ + | Reason | Onset | Comments | | | Date | | + +--------+ + | Medication Refill | 08/17/ | Refill request during PO Call | | | 2015 | | + +--------+ + Encounter Details +--------+--------+ + + + | Date | Type | Department | Care Team | Description | +--------+--------+ + + + | 08/17/ | Refill | [facility] | Joshua Jorge MD | Medication Refill | | 2015 | | NEUROSURGERY [address] | [address] | (Refill request | | | | [address] | [place] [address] | during PO Call) | | | | [place] | [phone] | | | | | [address] | | | | | | [phone] | | | +--------+--------+ + + + [...] Telephone Encounter - Delilah Schneider RN - 08/18/2016 7:53 AM PSTPatient's spouse notifi ed Rx is being sent via [facility] # [phone]. Patient's spouse reported RLE US completed yesterday at [facility] and was negative for DVT.Electr onically signed by Delilah Schneider RN at 08/18/2016 7:55 AM PSTTelephone Encounter - Jun Stout PA-C - 08/18/2016 6:25 AM PSTapproved elephone Encounter - Delilah Schneider RN - 016 2:35 PM PSTCopied from Post op follow up call: Procedure: L2-3, L3-4, L4-5 Lateral Anterior Interbody Fusion, L5-S1 Transforaminal Lumbar Interbody Fusion, L3-4 Decompression Date of Surgery: 08/10/2016 Taking pain meds (Name/Dosage)? Cyclobenzaprine every 6 hours; Hydrocodone 2 tablets ever y 4 hours; MS 30 ER 1 tablet every 12 hours; Gabapentin 1 tablet 3 times daily No BM for 7 days. Taking laxative, stool softener, increased fluid and fiber intake, ambul ating often. Patient requesting refills for Hydrocodone and MS to be sent via [facility]. Electr onically signed by Delilah Schneider RN at 08/17/2016 2:39 PM PSTdocumented in this encounte r Plan of Treatment Not on filedocumented as of this encounter Visit Diagnoses + + | Diagnosis | + + | S/P lumbar fusion - Primary Arthrodesis status | + + documented in this encounter"
--- OUTSIDE RECORDS SUMMARY | ~2020-06-17 | XMS | Encounter Summary ---
Demographics + + + | Address | [address] | | | [place] [address] | + + + | Home Phone | | + + + | Preferred Language | Unknown | + + + | Marital Status | | + + + | Judaism Affiliation | 1013 | + + + | Race | White | + + + | Ethnic Group | Not or | + + + Author + + + | Author | [facility] | | | and [place] | + + + | Organization | [facility] | | | [...] [place] | | | | | [address] | | + + + + + | Mason Fleming | ECON | Unknown | | + + + + + Care Team Providers + +------+ + | Care Credit Collections Clerk Name | Role | Phone | + [...] + + | Closed | Specialty | Physical | Diagnoses | [facility], | [facility] | | | Services | Therapy | S/P lumbar | Jun | [facility] | | | Required | | fusion | [facility] | | | | | Spinal | [address] | [address] | | | | | stenosis, | AVE | AVE | | | | | lumbar | [place], [place] | [place], [place] | | | | | region, with | [address] | [address] | | | | | neurogenic | Phone: | Phone: | | | | | claudication | [phone] | [phone] | | | | | Flat back | Fax: | Fax: | | | | | syndrome, | [phone] | [phone] | | | | | acquired | | | | | | | Facet | | | | | | | arthropathy, | | | | | | | lumbar | | | | | | | Degenerative | | | | | | | disc | | | | | | | disease, | | | | | | | lumbar | | | +--------+ + + + + + Reason for Visit +---------+ + | Reason | Comments | +---------+ + | Post Op | 4W PO | +---------+ + Encounter Details +--------+---------+ + + + | Date | Type | Department | Care Team | Description | +--------+---------+ + + + | 09/17/ | Office | [facility] | Jun Stout | S/P lumbar fusion | | 2017 | Visit | NEUROSURGERY [address] | [facility] [address] | (Primary Dx); Spinal | | | | [address] [place], [place] | stenosis, lumbar | | | | [place], [place] | [address] | region, with | | | | [address] | | neurogenic | | | | [phone] | | claudication; Flat | | | | | | back syndrome, | | | | | | acquired; Facet | | | | | | arthropathy, lumbar; | | | | | | Degenerative disc | | | | | | disease lumbar spine | +--------+---------+ + + + Social History [...] + + + | Blood Pressure | 116/63 | 09/17/2016 10:07 AM | | | | | PST | | + + + + + | Pulse | 53 | 09/17/2016 10:07 AM | | | | | PST | | + + + + + | Temperature | - | - | | + + + + + | Respiratory Rate | 16 | 09/17/2016 10:07 AM | | | | | PST | | + + + + + | Oxygen Saturation | - | - | | + + + + + | Inhaled Oxygen | - | - | | | Concentration | | | | + + + + + | Weight | - | - | | + + + + + | Height | 185.4 cm (6' 1") | 09/17/2016 10:07 AM | | | | | PST | | + + + + + | Body Mass Index | - | - | | + + + + + documented in this encounter Patient Instructions Patient Instructions Jun Stotu PA-C - 09/17/2016 11:10 AM PSTAt this time you m ay increase your activities allowing lifting up to 15 pounds. You may begin increasing your range of motion activities and begin weaning your lumbar brace. You may begin physical the rapy in the next 2 weeks. We will see you back in the office in 2 months with x-rays of you r lumbar spine. Please continue to slowly wean your pain medication. At this time you may begin removing your lumbar brace while you are sleeping as well as whi le you are sitting. Please continue to wear at at all other times until I see you back in t he office documented in this encounter Progress Notes Jun Stout PA-C - 09/17/2016 11:11 AM PSTFormatting of this note might be differ ent from the original. Jun Stout PA-C [address] [facility] [address] [place], [place] [address] FAX: NEUROSURGERY FOLLOW-UP CHIEF COMPLAINT: Chief Complaint Patient presents with Post Op 4W PO HISTORY OF PRESENT ILLNESS: The patient is a 71 y.o. male that had a lumbar fusion for sco liosis, radiculopathy and stenosis around 5 weeks. He returns and overall is doing okay. T he patient complains of continued pain as well as leg swelling. He has weakness particularl y in her right leg more than the left as well as the right foot. There has been some improv ement from immediately after surgery. Like his lower extremities globally. Overall he does feel like he is improving and is relatively happy with his progress and he wishes he was pr ogressing a little quicker.. The patient has been walking as much as directed. He is stil l taking pain medications at this point. The patient has had no issues with his surgical si te. The patient states his insurance company has limited his pain medication to only 6 pills a day without prior authorization. This is very inadequate to manage pain from such a large reconstructive surgery of his lumbar spine. CURRENT MEDICATIONS: Current Outpatient Prescriptions Medication Sig [...] 0.05 % ointment two times a day gabapentin (NEURONTIN) 300 mg capsule 2 tablets PO nightly for neuropathic pain (Patien t taking differently: 600 mg. 2 tablets PO nightly for neuropathic pain) 180 capsule 4 HYDROcodone-acetaminophen (NORCO) 10-325 mg [...] CAPS Take 0.4 mg by mouth Daily. vitamin B-12 (CYANOCOBALAMIN) 1000 MCG tablet Take 1,000 mcg by mouth Daily. No current facility-administered medications for this visit. 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 He has never used smokeless t obacco. He reports that he drinks alcohol. He reports that he does not use illicit drugs. INTERIM PHYSICAL EXAMINATION: Blood pressure 116/63, pulse 53, resp. rate 16, height 1.854 m (6' 1"). There is no weight on file to calculate BMI. GENERAL: Piter Fleming is in no acute distress with unlabored respirations. SPINE: The patient s incisions are healing well without drainage, significant erythema, o r discharge. EXTREMITIES: No lower extremity edema. NEUROLOGICAL EXAMINATION: MENTAL STATUS: The patient is awake, alert, and oriented. He follows simple and complex commands MOTOR EXAM: Motor strength is 4-/5 dorsiflexion and EHL right foot. SENSORY EXAM: The sensory examination is improved [...] Diagnoses Name Primary? S/P lumbar fusion Yes Spinal stenosis, lumbar region, with neurogenic claudication Flat back syndrome, acquired Facet arthropathy, lumbar Degenerative disc disease lumbar spine Past Medical History Diagnosis Date Hx of [...] apnea PLAN: Overall, the patient is doing okay. The patient can see some improvements but continues to recover from recent surgery. I am hoping that his weakness in his right foot improves with time. I would also ask him to follow-up with his primary care provider regarding his leg e kirsten. Talked about compression stockings as well as elevation of his legs. Any medication to help with this should come from his primary care provider I increased the patient s activities now allowing 15 pound lifting. The patient should i ncrease range of motion activities as tolerated. I would like the patient to advance slowly with this process and discussed this at length during today's visit. I would also like the patient to continue with postoperative rehabilitation and to advance with therapy as tolerkellie barahona. We discussed that we can provide pain medications for up to 90 days after their surgical da te. We discussed the need to continue tapering pain medication. If they need longer term p ain medication, they should begin working on either pain management or with the primary care provider. I am hoping to see improvement over the coming weeks to months and plan to continue to foll ow this patient. The patient will follow-up in clinic in around 8 weeks for re-evaluation. ELECTRONICALLY SIGNED BY: Jun Stout PA-C, 09/17/2016 11:11 documented in this encounter Plan of Treatment + + +--------+ + + | Name | Type | Priori | Associated Diagnoses | Order Schedule | | | | ty | | | + + +--------+ + + | OUTPATIENT PT | Outpatient | Routin | S/P lumbar fusion | Ordered: 09/17/2016 | | EXTERNAL | Referral | e | Spinal stenosis, | | | | | | lumbar region, with | | | | | | neurogenic | | | | | | claudication Flat | | | | | | back syndrome, | | | | | | acquired Facet | | | | | | arthropathy, lumbar | | | | | | Degenerative disc | | | | | | disease lumbar spine | | + + +--------+ + + documented as of this encounter Results XR Lumbar Spine 2 or 3 Vw (11/10/2016 9:24 AM PDT) + + | Specimen | + + | | + + + + + | Narrative | Performed At | + + + | XR LUMBAR SPINE 2 OR 3 VW 11/10/2016 9:24 AM HISTORY: Postop. | [facility] | | COMPARISON: Multiple priors. FINDINGS: Again observed are | [facility] | | hardware for posterior fusion from L1 through S1 with spacer hardware | [facility] | | at L2-3 through L4-5. A left lateral screw is seen of L4. The | - IMAGING | | hardware are intact. There is mild right curvature of the | | | thoracolumbar spine. Extensive spondylosis is present. Bone | | | mineralization is normal. Vertebral body height are preserved with no | | | evidence for compression fractures. Mild disc narrowing are at L1-2 | | | and L5-S1. Facet joints are intact. Visualized ribs and pelvic osseous | | | structures show no acute findings. Mild atherosclerosis is seen. | | | IMPRESSION - Stable posterior fusion from L1 through S1. | | | Dictated and Signed by: Chema Dee MD Electronically signed: | | | 11/10/2016 9:59 AM | | + + + + + | Procedure Note | + + | Benito, Rad Results In - 11/10/2016 10:02 AM PDT XR LUMBAR SPINE 2 OR 3 VW 11/10/2016 | | 9:24 AMHISTORY: Postop.COMPARISON: Multiple priors.FINDINGS:Again observed are hardware | | for posterior fusion from L1 through S1 with spacerhardware at L2-3 through L4-5. A left | | lateral screw is seen of L4. The hardwareare intact. There is mild right curvature of | | the thoracolumbar spine. Extensivespondylosis is present. Bone mineralization is normal. | | Vertebral body height arepreserved with no evidence for compression fractures. Mild | | disc narrowing are atL1-2 and L5-S1. Facet joints are intact. Visualized ribs and pelvic | | osseousstructures show no acute findings. Mild atherosclerosis is seen.IMPRESSION | | -Stable posterior fusion from L1 through S1.Dictated and Signed by: Chema Dee MD | | Electronically signed: 11/10/2016 9:59 AM | |spondylosis is present. Bone mineralization is normal. Vertebral body height are | |preserved with no evidence for compression fractures. Mild disc narrowing are at | |L1-2 and L5-S1. Facet joints are intact. Visualized ribs and pelvic osseous | |structures show no acute findings. Mild atherosclerosis is seen. | | | |IMPRESSION - | |Stable posterior fusion from L1 through S1. | | | |Dictated and Signed by: Chema Dee MD | | Electronically signed: 11/10/2016 9:59 AM | + + + + + + + | Performing | Address | City/State/Zipcode | Phone Number | | Organization | | | | + + + + + | [facility] | [address] 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
--- OUTSIDE RECORDS SUMMARY | ~2020-06-17 | XMS | Encounter Summary ---
Demographics + + + | Address | [address] | | | [place] [address] | + + + | Home Phone | | + + + | Preferred Language | Unknown | + + + | Marital Status | | + + + | Synagogue Affiliation | 1013 | + + + | Race | White | + + + | Ethnic Group | Not or | + + + Author + + + | Author | [facility] | | | and [place] | + + + | Organization | [facility] | | [...] [place] | | | | | [address] | | + + + + + | Mason Fleming | ECON | Unknown | | + + + + + Care Team Providers + +------+ + | Care Safe And Vault Installer Name | Role | Phone | + +------+ + | Michael Grijalva | PCP | | | MD | | | + +------+ + Encounter Details +--------+ + + + + | Date | Type | Department | Care Team | Description | +--------+ + + + + | 01/25/ | Orders Only | [facility] | Efraín Turk, | Thoracic spine pain | | 2019 | | PHYSIATRY [address] | PA-C [address] | (Primary Dx); Lumbar | | | | [address] | [address] [place] | radiculopathy | | | | [place], [place] | [place] [address] | | | | | [address] | [phone] | | | | | [phone] | | | +--------+ + + + [...] filedocumented as of this encounter Results [facility] SHIRLEY Lumbar Transforaminal (03/15/2019 2:16 PM PDT) + + | Specimen | + + | | + + + + -+ | Narrative | Performed At | + + -+ | 03/15/2019 | [facility] | | Bilateral Transforaminal Epidural Steroid Injections Diagnosis: Lumbar | | | radiculopathy ICD-10 Code M54.16 Piter Fleming presents to the | | | fluoroscopy suite for fluoroscopically-guided bilateral T12-L1 | | | transforaminal epidural steroid injections as part of conservative | | | management for chronic pain with lumbar radiculopathy and degenerative | | | disc disease. After informed consent was obtained, the patient lay in | | | the prone position on the fluoroscopy table. The areas were | | | identified under fluoroscopic guidance. The areas were prepped and | | | draped in sterile fashion. A 25-gauge, 1.5-inch needle was inserted | | | into each region and approximately 3 mL of buffered 1% lidocaine was | | | infused. Then, a 22-gauge spinal needle was inserted into the | | | posterior superior transforaminal space bilaterally and advanced into | | | the epidural space under fluoroscopic guidance. Confirmation into the | | | epidural space was obtained with infusion of approximately 1 mL of | | | Omnipaque contrast which showed epidural flow as well as nerve sheath | | | flow. Then, a combination of 2 mL of 1% lidocaine and 1.5 mL of 10 | | | mg/mL dexamethasone was infused, divided between the two sides. The | | | patient tolerated the procedure well without complications. Pre- and | | | post-procedure blood pressures were stable. The patient was given | | | verbal as well as written follow-up instructions. Prior to the start | | | of the procedure, the following were performed and/or verified, | | | including correct patient identity, correct site/side marked and | | | visible, agreement on the procedure to be done, correct patient | | | positioning and an accurate procedure consent form. Any safety | | | precautions based on clinical history and/or medication use have been | | | addressed. I personally performed the procedure above. Estimated blood | | | loss: MinimalComplications: NoneFindings: As expectedAnesthesia: | | | Local 1% Lidocaine | | |visible, agreement on the procedure to be done, correct patient | | |positioning and an accurate procedure consent form. Any safety precautions | | |based on clinical history and/or medication use have been addressed. I | | |personally performed the procedure above. | | | [...] + | Diagnosis | + + | Thoracic spine pain - Primary Pain in thoracic spine | + + | Lumbar radiculopathy Thoracic or lumbosacral neuritis or radiculitis, unspecified | + + documented in this encounter"
--- OUTSIDE RECORDS SUMMARY | ~2020-06-17 | XMS | Encounter Summary ---
Demographics + + + | Address | [address] | | | [place] [address] | + + + | Home Phone | | + + + | Preferred Language | Unknown | + + + | Marital Status | | + + + | Buddhist Affiliation | 1013 | + + + | Race | White | + + + | Ethnic Group | Not or | + + + Author + + + | Author | [facility] | | | and [place] | + + + | Organization | [facility] | | | [...] [place] | | | | | [address] | | + + + + + | Mason Fleming | ECON | Unknown | | + + + + + Care Team Providers + +------+ + | Care Plant Biology Professor Name | Role | Phone | + +------+ + PCP | Unavailable | + +------+ + Encounter Details +--------+ + + + + | Date | Type | Department | Care Team | Description | +--------+ + + + + | 05/07/ | Hospital | [facility] | Peter Haney | | | 2009 | Encounter | MED CTR XRAY [address] | | | | | [place] | [address] [place], [place] | | | | | [place] [address] | [address] | | | | | [phone] | | | +--------+ + + + [...]
--- OUTSIDE RECORDS SUMMARY | ~2020-06-17 | XMS | Encounter Summary ---
Demographics + + + | Address | [address] | | | [place] [address] | + + + | Home Phone | | + + + | Preferred Language | Unknown | + + + | Marital Status | | + + + | Nondenominational Affiliation | 1013 | + + + | Race | White | + + + | Ethnic Group | Not or | + + + Author + + + | Author | [facility] | | | and [place] | + + + | Organization | [facility] | | | [...] [place] | | | | | [id number] | | + + + + + | Mason Fleming | ECON | Unknown | | + + + + + Care Team Providers + +------+ + | Care Air Crew Member Name | Role | Phone | + [...] | | | | Diagnoses | | Joshua Jorge | | | | | Other | | MD [address] | | | | | secondary | | [address] | | | | | scoliosis, | | [place], [place] | | | | | site | | [address] | | | | | unspecified | | Phone: | | | | | Other | | [phone] | | | | | secondary | | Fax: | | | | | scoliosis, | | [phone] | | | | | lumbar | | | | | | | region | | | | | | | [M41.56] | | | | | | | Procedures | | | | | | | TX | | | | | | | ARTHRODESIS | | | | | | | POSTERIOR/PO | | | | | | | STEROLATERAL | | | | | | | LUMBAR | | | +--------+--------+ + + + + Encounter Details +--------+ + + + + | Date | Type | Department | Care Team | Description | +--------+ + + + + | 08/10/ | Hospital | [facility] | Joshua Jorge MD | Gait abnormality | | 2016 - | Encounter | [facility] | [address] | (Primary Dx) | | | | [address] [place] | [place] [address] | | | 08/13/ | | [place] [address] | [phone] | | | 2015 | | [phone] | | | +--------+ + + + [...] + + + | Blood Pressure | 88/40 | 08/13/2016 7:53 AM | | | | | PST | | + + + + + | Pulse | 55 | 08/13/2016 7:50 AM | | | | | PST | | + + + + + | Temperature | 35.9 C (96.6 F) | 08/13/2016 7:50 AM | | | | | PST | | + + + + + | Respiratory Rate | 18 | 08/13/2016 7:50 AM | | | | | PST | | + + + + + | Oxygen Saturation | 98% | 08/13/2016 7:50 AM | | | | | PST | | + + + + + | Inhaled Oxygen | - | - | | | Concentration | | | | + + + + + | Weight | 106.1 kg (234 lb) | 08/10/2016 10:28 AM | | | | | PST | | + + + + + | Height | 185.4 cm (6' 1") | 08/10/2016 10:28 AM | | | | | PST | | + + + + + | Body Mass Index | 30.87 | 08/10/2016 10:28 AM | | | | | PST | | + + + + + documented in this encounter Discharge Summaries Jun Stout PA-C - 08/13/2016 9:17 AM PSTFormatting of this note might be differ ent from the original. 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] Lumbar kyphosis Lumbar degenerative disc disease Lumbar facet arthropathy Lumbar spinal stenosis with claudication Lumbar foraminal stenosis Lumbar radiculopathy Ankylosing spondylitis Secondary Discharge Dx(s): Patient Active Problem List Diagnosis TREMOR, ESSENTIAL PERIPHERAL NEUROPATHY LUMBAR RADICULOPATHY Spinal stenosis, lumbar region, with neurogenic claudication OSTEOARTHRITIS, KNEE Degenerative disc disease lumbar spine BACK PAIN, LUMBAR OSTEOARTHRITIS, LUMBOSACRAL SPINE SLEEP APNEA, OBSTRUCTIVE, SEVERE DDD (degenerative disc disease), lumbar SCOLIOSIS ERRONEOUS ENCOUNTER--DISREGARD Lumbar scoliosis Flat back syndrome, acquired Facet arthropathy, lumbar Depression Thyroid disease Essential hypertension, benign Asthma, intrinsic Sleep apnea Procedures 1. Minimally invasive lumbar fusion via anterior and posterior approaches 2. Anterior lumbar interbody arthrodesis L2-3, L3-4, L4-5 3. Posterolateral lumbar arthrodesis L1, L2, L3, L4, L5, S1 4. Posterior spinal instrumentation L1-S1 with use of Precept 5. Placement of PEEK interbody spacer L2-3, L3-4, L4-5 6. L3 laminectomy, L3-4 facetectomy, L3 and L4 foraminotomy for decompression of L3 and L4 nerves and spinal canal 7. L5 laminectomy, L5-S1 facetectomy, L5 and S1 foraminotomy for decompression of L5 and S1 nerves 8. Microsurgical technique with use of operating microscope 9. Intraoperative fluoroscopy for spinal instrumentation Hospital Course: Post op the patient did well. Urinary catheter was removed post op day 1. He worked well w ith PT and OT. Passing flatus and urinating well. No medical issues were seen. He has goo d support at home. Pain was controlled Condition on Discharge: Stable Discharge Medications: Discharge Medications New Medications Details cyclobenzaprine 10 mg tablet Take 1 tablet by mouth every 6 hours as needed for Muscle spasms. aka: FLEXERIL HYDROcodone-acetaminophen 10-325 mg per tablet Take 1-2 tablets by mouth every 4 hours as needed for Pain. aka: NORCO lactulose 10 g/15 mL solution Take 30 mLs by mouth Daily as needed. morphine 30 mg ER tablet Take 1 tablet by mouth every 12 hours. aka: MS CONTIN Changed Medications Details gabapentin 300 mg capsule 2 tablets PO nightly for neuropathic pain What changed: - how much to take - additional instructions aka: NEURONTIN Unchanged Medications Details BETAMETHASONE Take by mouth as needed. cyanocobalamin 1000 MCG tablet Take 1,000 mcg by mouth Daily. aka: VITAMIN B-12 DHEA 50 MG Tabs Take 100 mg by mouth. ergocalciferol 50,000 units capsule Take 50,000 Units by mouth Once a week. aka: VITAMIN D-2 escitalopram 20 mg tablet Take 20 mg by mouth Daily. aka: LEXAPRO finasteride 5 mg tablet Take 5 mg by mouth Daily. aka: PROSCAR fluocinonide 0.05% ointment two times a day aka: LIDEX L-Carnitine 500 MG Caps Take 500 mg by mouth Daily. LEVOTHROID 200 mcg tablet Generic drug: levothyroxine Take 175 mcg by mouth Daily. lisinopril 10 mg tablet Take 10 mg by mouth Daily. aka: PRINIVIL, ZESTRIL multivitamin tablet Take 1 tablet by mouth daily NU-IRON 150 MG capsule Generic drug: iron polysaccharides Take 150 mg by mouth Daily. PRIMATENE ASTHMA 12.5-200 MG Tabs Generic drug: ePHEDrine-GuaiFENesin 2 to 3 tablets daily primidone 50 mg tablet Take 4 by mouth daily at bedtime for 5 days then increase to 5 by mouth daily at bedtime f or tremors aka: MYSOLINE sertraline 100 mg tablet Take 100 mg by mouth Daily. aka: ZOLOFT tamsulosin 0.4 mg Caps Take 0.4 mg by mouth Daily. aka: FLOMAX Discontinued Medications acetaminophen 500 mg tablet aka: TYLENOL ; Current Discharge Medication List START taking these medications Medication Dose Last Dose Taken; cyclobenzaprine (FLEXERIL) 10 mg tablet 10 mg Take 1 tablet by mouth every 6 hours as needed for Muscle spasms. Quantity: 90 tablet Refills: 2 Start date: 08/13/2016 HYDROcodone-acetaminophen (NORCO) 10-325 mg per tablet 1-2 tablets Take 1-2 tablets by mouth every 4 hours as needed for Pain. Quantity: 120 tablet Refills: 0 Start date: 08/13/2016 lactulose 10 g/15 mL solution 30 mLs Take 30 mLs by mouth Daily as needed. Quantity: 240 mL Refills: 3 Start date: 08/13/2016 morphine (MS CONTIN) 30 mg ER tablet 30 mg Take 1 tablet by mouth every 12 hours. Quantity: 30 tablet Refills: 0 Start date: 08/13/2016 CONTINUE these medications which have NOT CHANGED Medication Dose Last Dose Taken; BETAMETHASONE Take by mouth as needed. DHEA 50 MG TABS 100 mg Take 100 mg by mouth. Ephedrine-Guaifenesin (PRIMATENE ASTHMA) 12.5-200 MG TABS 2 to 3 tablets daily ergocalciferol (VITAMIN D-2) 50,000 units capsule 50,000 Units Take 50,000 Units by mouth Once a week. escitalopram (LEXAPRO) 20 mg tablet 20 mg Take 20 mg by mouth Daily. finasteride (PROSCAR) 5 mg tablet 5 mg Take 5 mg by mouth Daily. fluocinonide (LIDEX) 0.05 % ointment two times a day gabapentin (NEURONTIN) 300 mg capsule 2 tablets PO nightly for neuropathic pain Quantity: 180 capsule Refills: 4 iron polysaccharides (NU-IRON) 150 MG capsule 150 mg Take 150 mg by mouth Daily. LevOCARNitine L-Tartrate (L-CARNITINE) 500 MG CAPS 500 mg Take 500 mg by mouth Daily. levothyroxine (LEVOTHROID) 200 mcg tablet 175 mcg Take 175 mcg by mouth Daily. lisinopril (PRINIVIL, ZESTRIL) 10 mg tablet 10 mg Take 10 mg by mouth Daily. multivitamin (THERAGRAN) per tablet Take 1 tablet by mouth daily primidone (MYSOLINE) 50 mg tablet Take 4 by mouth daily at bedtime for 5 days then increase to 5 by mouth daily at bedtime f or tremors sertraline (ZOLOFT) 100 mg tablet 100 mg Take 100 mg by mouth Daily. tamsulosin (FLOMAX) 0.4 mg CAPS 0.4 mg Take 0.4 mg by mouth Daily. vitamin B-12 (CYANOCOBALAMIN) 1000 MCG tablet 1,000 mcg Take 1,000 mcg by mouth Daily. Follow-Up: 4 weeks C Brace documented in this encounter Discharge Instructions Instructions Jun Stout PA-C - 08/13/2016Discharge Instructions for Lumbar Fusio n You had a lumbar fusion. During this procedure, your doctor locked together (fused) some of the bones in your spine. This limits the movement of these bones to help relieve your pain. Here s what you need to know about home care following a spinal fusion. Activity Arrange your household to keep the items you need within reach. Remove electrical cords, throw rugs, and anything else that may cause you to fall. Use a walkeror handrails until your balance, flexibility, and strength improve. And re member to ask for help from others when you need it. Free up your hands so that you can use them to keep balance. Use a kip pack, apron, or pockets to carry things. Be sure not to carry too much at once. Don t bend or twist at the waist, or raise your hands over your head for the first two weeks after your surgery. Don t lift anything heavier than 5 pounds for the first four weeks after surgery. Don t sit for more than30 to 45 minutes at a time. Take frequent short walks. They a re the sims to your recovery. As your back feels better please gradually increase the distanc e you walk as discussed with your provider. Don t drive until your doctor says it s OK. And never drive while you are taking opi oid pain medication. Nap if you are tired, but don t stay in bed all day. Use chairs with arms. The arms make it easier for you to stand up and sit down. If you have not yet received instructions about physical therapy, ask your doctor about them. Incision care Check your incision daily for redness, tenderness, or drainage. Don t soak your wound in water (no hot tubs, bathtubs, swimming pools) until your doct or says it s OK. As long as you keep your incision dry you can shower as desired. After 5 days you may le t shower water run over the incision but do not submerse the incision under water until afte r you see your provider. Gently pat the incision dry. Don t rub it, or apply creams or lot ions. And if you feel unsteady while standing to shower, use a shower stool or chair. Other home care Use nonslip bath mats, grab bars, an elevated toilet seat, and a shower chair in your ba throom. Take your medication exactly as directed. Don t take nonsteroidal anti-inflammatory medications (NSAIDs), such as ibuprofen. The y may delay or prevent proper fusion of the spine. If you smoke, stop! This will be one of the most important things you can do to help you recover from surgery. Wear your back brace, if one was prescribed, as directed by your doctor. Follow-up Most patients will be seen approximately 4 weeks after surgery. Be sure to get your 1 mo nth post op x-rays prior to your 1 month post op appointment before your appointment. [id number] [employer]. [address] [place] [address]. All righ ts reserved. This information is not intended as a substitute for professional medical care. Always follow your healthcare professional's instructions. documented in this encounter Medications at Time [...] times a day | | 0 | 09/14/20 | | | (LIDEX) 0.05 % | [...] documented as of this encounter Progress Notes Jun Stout PA-C - 08/12/2016 8:40 AM PSTFormatting of this note might be differ ent from the original. [facility] PROGRESS NOTE Pt. Name/Age/: Piter Fleming 71 y.o. 1945 Med. Record Number: [id number] Date of admission: 08/10/2016 Subjective: The patient chart and medications were reviewed in detail and the patient was s een and examined. The patient is doing well this morning. He is urinating and passing flatus. He feels like his pain is reasonably controlled. He is encouraged by his progress Objective: Temp: 37.4 C (99.3 F) BP: 125/59 mmHg Pulse: 74 Resp: 18 SpO2: 92 % on Min/Max Temp past 24 hours:Temp Av.3 C (99.2 F) Min: 37 C (98.6 F) Max: 37. 8 C (100 F) Intake/Output Summary (Last 24 hours) at 08/12/16 0840 Last data filed at 08/12/16 0651 Gross per 24 hour Intake 1630 ml Output 3365 ml Net -1735 ml Wt. Admission: Weight: 106.142 kg (234 lb) Wt. Current: Weight: 106.142 kg (234 lb) Exam: General: A&O Cardiovascular: RRR Respiratory: Clear. Abdomen: Obese/benign Extremities: No edema Neurological: stable Diagnostic studies: Available data and images were reviewed personally. See reports. Signi ficant results and findings are addressed here or in the Assessment and Plan. Assessment and Plan: Sp lumbar fusin Patient Active Problem List Diagnosis TREMOR, ESSENTIAL PERIPHERAL NEUROPATHY LUMBAR RADICULOPATHY Spinal stenosis, lumbar region, with neurogenic claudication OSTEOARTHRITIS, KNEE Degenerative disc disease lumbar spine BACK PAIN, LUMBAR OSTEOARTHRITIS, LUMBOSACRAL SPINE SLEEP APNEA, OBSTRUCTIVE, SEVERE DDD (degenerative disc disease), lumbar SCOLIOSIS ERRONEOUS ENCOUNTER--DISREGARD Lumbar scoliosis Flat back syndrome, acquired Facet arthropathy, lumbar Depression Thyroid disease Essential hypertension, benign Asthma, intrinsic Sleep apnea Plam: Continue to mobilize with physical therapy and occupational therapy. If the patient continues to do well he will most likely be discharged tomorrow Electronically signed by: Jun Stout, 08/12/2016 8:40 [facility], Jun Navarro PA-C - 08/11/2016 7:35 AM PSTFormatting of this note might be different from the or iginal. [facility] PROGRESS NOTE Pt. Name/Age/: Piter Fleming 71 y.o. 1945 Med. Record Number: [id number] Date of admission: 08/10/2016 Subjective: The patient chart and medications were reviewed in detail and the patient was s een and examined. The patient is doing OK today. [place] cath is scheduled to be removed this AM. He has pain but seems to be doing well Objective: Temp: 35.9 C (96.6 F) BP: 119/57 mmHg Pulse: 60 Resp: 16 SpO2: 98 % on Min/Max Temp past 24 hours:Temp Av.2 C (97.2 F) Min: 35.9 C (96.6 F) Max: 3 6.6 C (97.9 F) Intake/Output Summary (Last 24 hours) at 08/11/16 0736 Last data filed at 08/11/16 0400 Gross per 24 hour Intake 5200 ml Output 1364 ml Net 3836 ml Wt. Admission: Weight: 106.142 kg (234 lb) Wt. Current: Weight: 106.142 kg (234 lb) Exam: General: A&O Cardiovascular: RRR Respiratory: Clear. CPAP in place Abdomen: Obese/benign Extremities: No edema Neurological: stable Diagnostic studies: Available data and images were reviewed personally. See reports. Signi ficant results and findings are addressed here or in the Assessment and Plan. Assessment and Plan: Sp lumbar fusin Patient Active Problem List Diagnosis TREMOR, ESSENTIAL PERIPHERAL NEUROPATHY LUMBAR RADICULOPATHY Spinal stenosis, lumbar region, with neurogenic claudication OSTEOARTHRITIS, KNEE Degenerative disc disease lumbar spine BACK PAIN, LUMBAR OSTEOARTHRITIS, LUMBOSACRAL SPINE SLEEP APNEA, OBSTRUCTIVE, SEVERE DDD (degenerative disc disease), lumbar SCOLIOSIS ERRONEOUS ENCOUNTER--DISREGARD Lumbar scoliosis Flat back syndrome, acquired Facet arthropathy, lumbar Depression Thyroid disease Essential hypertension, benign Asthma, intrinsic Sleep apnea Plam: Mobilize with PT and OT. Probably home in a 2-3 days. Consider rehab if slow to pr ogress Electronically signed by: Jun Stout, 08/11/2016 7:36 [facility] artha Jara RN - 08/10/2016 11:14 PM PSTAssumed care. Electronically signed by: Genie Robledo 08/10/2016 23:15 d ocumented in this encounter H&P Notes Joshua Jorge MD - 08/10/2016 12:13 PM PSTProNorth [facility] H[facility] AND PHYSICAL UPDATE Pt. Name/Age/: Piter Fleming 71 y.o. 1945 Date of admission: 08/10/2016 The current H&P was reviewed. The patient was reexamined. Re-evaluation of the patient con firms the necessity for the scheduled procedure. No change has occurred in the patient s c ondition since the H&P was completed less than 30 days ago. I expect this patient will be hospitalized for post-operative care of post-operative care o f an IP-only procedure and expect the post-hospital plan to be determined once additional in formation is obtained. VERIFICATION OF CONSENT (PARQ) The patient was counseled regarding the procedure, its indications, risks, potential compli cations and alternatives. Any questions were answered. Consent was obtained. Electronically signed by: Joshua Jorge MD 08/10/2016 12:13 [facility] Gael Sauceda P A-C - 08/06/2016 4:24 PM PST Gael Melgar PA-C [address] [facility], [address] [place] [address] FAX: NEUROSURGERY HISTORY AND PHYSICAL EXAMINATION CHIEF COMPLAINT: Chief Complaint Patient presents with Pre-op Exam Surgery on 08/10/2016 HISTORY OF PRESENT ILLNESS: The patient was seen in office today for his preoperative appointment. He is scheduled for a L2-L5 LAIF with a L5-S1 TLIF. He discusses that his pain has been about the same since h is previous visit. He does still describes low back pain that flares up throughout the day. He has some pain that radiates down into his both of his legs and has foot numbness. He h as been weaning off the pain medicine so that we can better control his pain after the surge ry. He has been using Tylenol and gabapentin in the meantime. He denies any shortness of b reath or chest pain. He denies any fever or chills.He has no open sores on his body and has not had any antibiotics recently. The PCP has seen him and they have cleared him for surger y. His symptoms improve with rest and bending. His symptoms worsen with standing, sitting, kneeling, bending and twisting. He has tried therapy and injections. PAST MEDICAL HISTORY: Past Medical History Diagnosis Date Depression Hx of gastric bypass High cholesterol Kidney stones Thyroid disease Neuropathy (HCC) Hands and Feet ERRONEOUS ENCOUNTER--DISREGARD 05/07/2015 Lumbar stenosis Asthma, intrinsic Benign localized hyperplasia of prostate with urinary obstruction Chronic pain syndrome Cystitis, subacute Dermatitis due to drugs and medicines taken internally Dermatitis, eczematoid Essential hypertension, benign Essential tremor Flank pain Folliculitis Hematuria Primary hypothyroidism Major depressive disorder, recurrent, in partial remission (HCC) Nephrolithiasis Nontraumatic rupture of bicep tendon, right Right rupture rotator cuff complete Sciatica Osteoarthrosis, localized, primary, knee, right Spinal stenosis, lumbar Postgastrectomy syndrome Dumping syndrome PAST SURGICAL HISTORY: Past Surgical History Procedure Laterality Date Appendectomy Jun 2008 Gallbladder surgery Total knee arthroplasty /-2010 Gastric bypass surgery -2008 morbid obesity Rotator cuff repair Right 06/2015 Colon surgery 06/2011 no polyps Cholecystectomy 06/2006 Wrist surgery 2010 Hardware removal CURRENT MEDICATIONS: Current Outpatient Prescriptions Medication Sig Dispense Refill acetaminophen (TYLENOL) 500 mg tablet Take 500 mg by mouth nightly. BETAMETHASONE Take by mouth as needed. DHEA [...] nightly for neuropathic pain) 180 capsule 4 iron polysaccharides (NU-IRON) 150 [...] patient reports that he quit smoking about 35 years ago. He has never used smokeless t obacco. He reports that he drinks alcohol. He reports that he does not use illicit drugs. FAMILY HISTORY: Family History Problem Relation Age of Onset Arthritis Other Diabetes Other Gout Other Heart defect Other Other (see comment) Father 80 kidney failure Hypertension Father Other (see comment) Brother 78 Brain tumor No Known Problems Daughter No Known Problems Son Other (see comment) Brother blood poisoning No Known Problems Paternal Grandfather No Known Problems Paternal Grandmother No Known Problems Maternal Grandfather No Known Problems Maternal Grandmother REVIEW OF SYSTEMS: GENERALLY: No fever, no night sweats, no anemia, no fatigue, + recent profound weight jarod nges. EYES: No eye problems, + use of corrective lenses, no eye injury, no double vision, no bli ndness. EARS, NOSE, AND THROAT: No changes in taste or smell, no hearing difficulty, + ear injury, no ringing in the ears, no ear drainage, no dizziness, no voice changes, no difficulty swa llowing, no significant snoring, + sleep apnea, no sinus problems, no major dental work. NEUROLOGICALLY: Please see the review of systems discussed above in the history of present illness. In addition, the patient has numbness/pain of feet and legs, back pain. PSYCHIATRIC: + depression, no sleep disorders, no anxiety, no bipolar disorder, no psychot ic episodes. CARDIOVASCULAR: No heart attacks, no heart murmur, no heart fluttering, no chest pain, no ankle swelling. LUNG DISEASE: No shortness of breath, no cough, no tuberculosis, no bloody cough, no asth ma, no emphysema. GASTROINTESTINAL: No bowel disease, no nausea or vomiting, + rectal bleeding/hemorrhoids, no constipation, no stool incontinence, + liver disease/gallbladder disease, no abdominal pa in, no ulcers. KIDNEY DISEASE: + urinary frequency, no painful or difficult urination, no incontinence. ENDOCRINE: No diabetes, no thyroid disease, no osteopenia or osteoporosis, no breast drain age. SKIN: No breast lumps, no skin changes, no rashes, no itches. HEMATOLOGIC/LYMPHATIC: No enlarged lymph nodes, no easy or unusual bleeding, no personal h istory of cancer. RHEUMATOLOGIC: + joint arthritis, no rheumatoid arthritis. PHYSICAL EXAMINATION: Blood pressure 133/68, pulse 51, height 1.854 m (6' 1"), weight 111.222 kg (245 lb 3.2 oz). Body mass index is 32.36 kg/(m^2). GENERAL: Piter Fleming is in no acute distress with unlabored respirations. The ronda ent does not appear uncomfortable throughout the exam today. HEENT: HEAD/FACE: EYES: EARS: NASOPHARNYX: OROPHARNYX: Normocephalic and atraumatic. There are no areas of recent trauma. Normal sclerae without icterus. NECK (ANTERIOR): Supple. CHEST: Clear to ausculation without crackles or wheeze. HEART: Regular rate and rhythm without murmurs. ABDOMEN: Soft, non-tender, non-distended, and without palpable masses. The patient is obes e. SPINE: There is no tenderness in the midline of the cervical or thoracic spine. There is p alpable deformity of the spine. The lumbar spine shows there is tenderness in the midline of the L3, L4, L5 levels. To pal pation, there is no signficant myofascial tenderness. He has compensated flat back. EXTREMITIES: No edema. Distal pulses are palpable. NEUROLOGICAL EXAM: MENTAL STATUS: The patient is awake, alert, and oriented. He follows simple and complex commands. He speech is fluent, he comprehends speech well, and he repeats well. He has no apparent deficits with short or correction memory. CRANIAL NERVES: II: Acuity is diminished. Farmer are full to confrontation. III, IV, : The pupils are reactive. Extraocular movements are intact. No ptosis is note d. V: Facial sensation is intact and symmetric. VII: Facial movements are symmetric. VIII: Hearing is intact bilaterally. IX, X: The uvula and palate move appropriately. XI: Shrug is equal bilaterally. XII: Tongue protrusion is midline. MOTOR EXAM: (5 IS NORMAL) * Indicates pain limited MUSCLE/ MOVEMENT: RIGHT LEFT Deltoids 5 5 Biceps 5 5 Triceps 5 5 Wrist Flexion 5 5 Wrist Extension 5 5 Median Intrinsics 5 5 Ulnar Intrinsics 5 5 Pharmacy Salesperson Strength 5 5 Hip Flexion 5 5 Hip Extension 5 5 Knee Flexion 5 5 Knee Extension 5 5 Dorsiflexion 5 5 Extensor Hallicus Longus 5 5 Plantarflexion 5 5 SENSORY EXAM: Sensory exam shows no diminished sensation to light touch or pain throughout the upper and lower extremities except in his feet bilaterally in a stocking pattern. REFLEXES: (2 OR 2+ IS NORMAL) REFLEX: RIGHT LEFT BICEPS 1 1 BRACHIORADIALIS 1 1 TRICEPS 1 1 PATELLAR 2 2 ACHILLES 1 1 GAIT: Gait is steady but stooped RADIOGRAPHIC REVIEW: The patient's imaging was reviewed in detail with the patient today during the visit. The images show severe multilevel lumbar disease with scoliosis and stenosis. He has lost more lordosis and has a 20 degree mismatch. ASSESSMENT: NEUROSURGICAL DIAGNOSES: Encounter Diagnoses Name Primary? Lumbar spinal stenosis Yes Lumbar foraminal stenosis Bilateral low back pain without sciatica, unspecified chronicity GENERAL DIAGNOSES: Past Medical History Diagnosis Date Depression Hx of gastric bypass High cholesterol Kidney stones Thyroid disease Neuropathy (HCC) Hands and Feet ERRONEOUS ENCOUNTER--DISREGARD 05/07/2015 Lumbar stenosis Asthma, intrinsic Benign localized hyperplasia of prostate with urinary obstruction Chronic pain syndrome Cystitis, subacute Dermatitis due to drugs and medicines taken internally Dermatitis, eczematoid Essential hypertension, benign Essential tremor Flank pain Folliculitis Hematuria Primary hypothyroidism Major depressive disorder, recurrent, in partial remission (HCC) Nephrolithiasis Nontraumatic rupture of bicep tendon, right Right rupture rotator cuff complete Sciatica Osteoarthrosis, localized, primary, knee, right Spinal stenosis, lumbar Postgastrectomy syndrome Dumping syndrome PLAN: He has delayed his surgery due to recent personal family issues. He says that his pain is increased since weaning off of the hydrocodone. We discussed that he could space out his ga bapentin through the day to help make it last longer. He is currently taking two 300 mg vee apentin in the morning. It was a pleasure seeing and evaluating this patient today again. The patient has severe l umbar disease. I discussed a L2-S1 surgery for his flat back, scoliosis and stenosis. We discussed the risks, alternatives, and benefits to surgical intervention with Mr. Fleming in clinic. These risks included but were not limited to , stroke, heart attack, numbn ess, weakness, paralysis, failure of fusion, failure of hardware, subsidence, adjacent segme nt degeneration, cerebrospinal fluid leak, bleeding, infection, injury to surrounding tissue s and organs, injury from positioning, injury to the nerves, difficulty with breathing, diff iculty with swallowing, difficulty with voice change, and need for additional surgery. Surgical options were discussed and the technique to be employed was described in detail to him. All his questions were answered. We discussed that the goal of the surgery is to prevent progression of his disease, but it is not considered a cure. We also discussed that although some patients may obtain 100% sym ptom relief, it is realistic to anticipate that some symptoms will continue postoperatively despite a successful surgery. We also discussed that there is no guarantee that surgery will provide improvement in his c ondition, and indeed may even worsen the symptoms. We also discussed that in the course of the procedure the operative plan may be altered to include more, less, or different levels d epending upon findings in order to provide him with the best possible outcome. I am prescribing a brace before surgery to improve his stability now to support his weak mu scles and to reduce pain by restricting mobility. For multiple (more than 1 level) fusions, I am also prescribing a bone growth stimulator po stoperatively. This is to improve the probability and rate of fusion. He would like to proceed with his scheduled surgery on 08/10/16. ELECTRONICALLY SIGNED BY: Gael Melgar PA-C, 08/06/2016 16:24 documented in this encounter Nursing Notes Ernesto Herzog RN - 08/10/2016 7:13 PM PSTLumbar brace placed on pt.Electronically mary d by Ernesto Herzog RN at 08/10/2016 7:14 PM PSTSyeda Lopez RN - 08/10/2016 3:30 PM PSTF amileri called with patient status update.Electronically signed by Syeda Lopez RN at 6 3:30 PM PSTdocumented in this encounter Miscellaneous Notes Plan of Care - Mallory Fernandez RN - 08/13/2016 3:16 PM PSTProblem: Patient Care Ov erview (Adult) Goal: Care Team Goals & Evaluation PROBLEM-RELATED GOALS: 1. Pt s pain will be scored at 3 out of 10 by 08/13/16. 2. Sensation and muscle strengths to lower extremities will remain at pt s baseline or im prove by 08/14/16. 3. Pt will demonstrate lumbar precautions and ambulate with staff by 08/11/16. 4. Pt will tolerate a general textured diet by 08/11/16. 5. Pt will be free from s/s of infection through 08/15/16 6. Pt will have BM by 08/12/16. 7. Pt will void within 6 hours after having his vallejo removed on 08/11/16. 8. Pt will demonstrate safe gait using FWW in and outside room by 08/16/16. 9. Pt will be mod I or better in ADLs and functional mobility by 08/16/16. STRATEGY TO ACHIEVE GOALS: 1. Assess pain q4h and PRN. Medicate PRN and re-evaluate pain 30-60 minutes after and re-me dicate PRN. Assist with repositioning for comfort. 2. Assess muscle strengths and CMS q4h and PRN. Notify MD if abnormalities are found. 3. Teach pt lumbar precautions and how to manage his C brace. Cue and assist as needed. Enc ourage ambulation to bathroom and in halls as appropriate. Use FWW and staff assist for safe ty. 4. Start pt on clear liquids when he arrives to the floor and advance to general texture as he tolerates. Medicate with anti-emetics PRN. 5. Assess dressing and vitals with temps q4h and PRN. Monitor lab work as ordered. Notify M D with concerns. 6. Assess bowel tones q shift and PRN. Encourage fluid intake and ambulation to help promot e BM. Monitor for bowel movements and if no BM by 08/12/16 use PRN bowel protocol. 7. If pt has no void within 6 hours after vallejo is removed, bladder scan pt and follow MD vazquez rdtom to assist empting the bladder. 8. PT intervention and pt/family education and training. -OT therapy sessions and education/training. Outcome: Adequate for Discharge Date Met: 08/13/16 Goal Evaluation: Pt discharged to home with spouse after discharge teaching done, worked with therapies, ROXANNE drains removed, and IV removed, and AVS/prescriptions given. Follow-up appointments specifi ed. lan of Care - Kinza Daigle COTA - 08/13/2016 2:58 PM PSTProblem: Patient Care Overview (Adult) Goal: Care Team Goals & Evaluation PROBLEM-RELATED GOALS: 1. Pt s pain will be scored at 3 out of 10 by 08/13/16. 2. Sensation and muscle strengths to lower extremities will remain at pt s baseline or im prove by 08/14/16. 3. Pt will demonstrate lumbar precautions and ambulate with staff by 08/11/16. 4. Pt will tolerate a general textured diet by 08/11/16. 5. Pt will be free from s/s of infection through 08/15/16 6. Pt will have BM by 08/12/16. 7. Pt will void within 6 hours after having his vallejo removed on 08/11/16. 8. Pt will demonstrate safe gait using FWW in and outside room by 08/16/16. 9. Pt will be mod I or better in ADLs and functional mobility by 08/16/16. STRATEGY TO ACHIEVE GOALS: 1. Assess pain q4h and PRN. Medicate PRN and re-evaluate pain 30-60 minutes after and re-me dicate PRN. Assist with repositioning for comfort. 2. Assess muscle strengths and CMS q4h and PRN. Notify MD if abnormalities are found. 3. Teach pt lumbar precautions and how to manage his C brace. Cue and assist as needed. Enc ourage ambulation to bathroom and in halls as appropriate. Use FWW and staff assist for safe ty. 4. Start pt on clear liquids when he arrives to the floor and advance to general texture as he tolerates. Medicate with anti-emetics PRN. 5. Assess dressing and vitals with temps q4h and PRN. Monitor lab work as ordered. Notify M D with concerns. 6. Assess bowel tones q shift and PRN. Encourage fluid intake and ambulation to help promot e BM. Monitor for bowel movements and if no BM by 08/12/16 use PRN bowel protocol. 7. If pt has no void within 6 hours after vallejo is removed, bladder scan pt and follow o rdtom to assist empting the bladder. 8. PT intervention and pt/family education and training. -OT therapy sessions and education/training. Occupational Therapy Plan of Care Treatment Note Summary: Patient and requesting instruction for UB dressing. Education provided on te chnique with spinal precautions while in bed. Patient required cuing for log roll side to si de and for technique. Patient and indicated understanding after session. Occupational Therapy Discharge Recommendations are: Recommended discharge disposition: home with assist Post discharge occupational therapy recommendation: no further OT Equipment Recommendations: hand held shower head, shower chair, solutions architect consultant, sock aide, toilet safety frame (or a BSC over toilet) Patient Status/Goals: Reflects last filed data of Patient Status/Goals may be from multiple contributors. ADLs Patient and educated in donning techniques for shirt while supine with spinal precauti ons. Brace remained on, loosened x2 for underneath clothing straightening. Cues needed for l ogroll technique in bed. UB Dressing, Level of Rawlins: minimum assist (75% patient effort) UB Dressing Assess/Train, Position: other (see comments) STG Goals Transfer Training Goal, Activity Type: bed to chair /chair to bed, sit to stand/stand to si t, toilet Rawlins Level: modified independence Assistive Device: 2 wheeled walker (FWW) Time to Achieve: by discharge Goal Status: continued Toileting Goal, Rawlins Level: modified independence Time to Achieve: by discharge Goal Status: continued UB Dressing Goal, Rawlins Level: modified independence Time to Achieve: by discharge Goal Status: continued, progressing toward goal LB Dressing Goal, Rawlins Level: modified independence Adaptive Equipment: solutions architect consultant, sock-aid Time to Achieve: by discharge Goal Status: continued Occupational Therapy will follow Piter Fleming 3 times/wk until discharge from therap y or discharged from the hospital. Identified Problems Needing Skilled Intervention: pain, weakness, decreased ADLs, increas ed risk of falls s/p surgery, aerobic capacity/endurance, gait, locomotion, and balance Planned Interventions:ADL retraining, strengthening, transfer training Electronically signed by: BAKARI Perkins, 08/13/2016 14:57Goal Evaluation: lan of Care - Destinee Washburn COTA - 08/13/2016 11:50 AM PSTProblem: Patient Care Overview (Adult) Goal: Care Team Goals & Evaluation PROBLEM-RELATED GOALS: 1. Pt s pain will be scored at 3 out of 10 by 08/13/16. 2. Sensation and muscle strengths to lower extremities will remain at pt s baseline or im prove by 08/14/16. 3. Pt will demonstrate lumbar precautions and ambulate with staff by 08/11/16. 4. Pt will tolerate a general textured diet by 08/11/16. 5. Pt will be free from s/s of infection through 08/15/16 6. Pt will have BM by 08/12/16. 7. Pt will void within 6 hours after having his vallejo removed on 08/11/16. 8. Pt will demonstrate safe gait using FWW in and outside room by 08/16/16. 9. Pt will be mod I or better in ADLs and functional mobility by 08/16/16. STRATEGY TO ACHIEVE GOALS: 1. Assess pain q4h and PRN. Medicate PRN and re-evaluate pain 30-60 minutes after and re-me dicate PRN. Assist with repositioning for comfort. 2. Assess muscle strengths and CMS q4h and PRN. Notify MD if abnormalities are found. 3. Teach pt lumbar precautions and how to manage his C brace. Cue and assist as needed. Enc ourage ambulation to bathroom and in halls as appropriate. Use FWW and staff assist for safe ty. 4. Start pt on clear liquids when he arrives to the floor and advance to general texture as he tolerates. Medicate with anti-emetics PRN. 5. Assess dressing and vitals with temps q4h and PRN. Monitor lab work as ordered. Notify M D with concerns. 6. Assess bowel tones q shift and PRN. Encourage fluid intake and ambulation to help promot e BM. Monitor for bowel movements and if no BM by 08/12/16 use PRN bowel protocol. 7. If pt has no void within 6 hours after vallejo is removed, bladder scan pt and follow MD o rders to assist empting the bladder. 8. PT intervention and pt/family education and training. -OT therapy sessions and education/training. Outcome: Adequate for Discharge Date Met: 08/13/16 Occupational Therapy Plan of Care Treatment, Discharge Note Summary: Pt seen for functional mobility with transfers went over shower trnasfers using F WW and shower chair. Discussed DME pt will need for home use. Pt still struggling to bring Shante Cool into bed. His is assisting him. Reviewed spiinal precautions and showering fr om sitting and LSO management. Once pt was back in bed, showed pt 's how to adjust LSO with pt in supine. Pt reports they have the number for the loner closet in [facility] and wi ll be calling them. Unable to complete UB/LB dressing at this time D/T drains still in plac e. Occupational Therapy Discharge Recommendations are: Recommended discharge disposition: home with assist Post discharge occupational therapy recommendation: no further OT Equipment Recommendations: hand held shower head, shower chair, solutions architect consultant, sock aide, toilet safety frame (or a BSC over toilet) Patient Status/Goals: Reflects last filed data of Patient Status/Goals may be from multiple contributors. ADLs LB, Level of Rawlins: verbal cues required, minimum assist (75% patient effort) Assistive Device: solutions architect consultant, sock-aid LB Dressing Assess/Train, Position: supported standing, sitting LB Dressing Assess/Train, Impairments: decreased flexibility, ROM decreased, coordination i mpaired, pain STG Goals Transfer Training Goal, Activity Type: bed to chair /chair to bed, sit to stand/stand to si t, toilet Rawlins Level: modified independence Assistive Device: 2 wheeled walker (FWW) Time to Achieve: by discharge Goal Status: progressing toward goal, not met Toileting Goal, Rawlins Level: modified independence Time to Achieve: by discharge Goal Status: progressing toward goal, not met UB Dressing Goal, Rawlins Level: modified independence Time to Achieve: by discharge Goal Status: progressing toward goal, not met LB Dressing Goal, Rawlins Level: modified independence Adaptive Equipment: solutions architect consultant, sock-aid Time to Achieve: by discharge Goal Status: progressing toward goal, not met Occupational Therapy will follow Piter Fleming 3 times/wk until discharge from [facility] or discharged from the hospital. Identified Problems Needing Skilled Intervention: pain, weakness, decreased ADLs, increas ed risk of falls s/p surgery, aerobic capacity/endurance, gait, locomotion, and balance Planned Interventions:ADL retraining, strengthening, transfer training Electronically signed by: BAKARI Wood, 08/13/2016 11:50 lan of Aby Mckenna - 08/13/2016 10:59 AM PSTMet with Piter and his spouse, Aby, this morning r egarding discharge needs. Piter stated, his FWW will be delivered by 1130 today. He plans o n staying for lunch and his spouse will transport him home. Piter requested his medical rec ords. This CM had Piter sign a "Release of Information" faxed this signed form to HIM. And gave Aby a copy. Received the communication result report; Result ok. No further discharge needs. Electronically signed by: Aby Bailey 08/13/2016 11:02 lan of [facility] - Jax Flynn PTA - 08/13/2016 9:52 AM PSTProblem: Patient Care Overview (Adult) Goal: Care Team Goals & Evaluation PROBLEM-RELATED GOALS: 1. Pt s pain will be scored at 3 out of 10 by 08/13/16. 2. Sensation and muscle strengths to lower extremities will remain at pt s baseline or im prove by 08/14/16. 3. Pt will demonstrate lumbar precautions and ambulate with staff by 08/11/16. 4. Pt will tolerate a general textured diet by 08/11/16. 5. Pt will be free from s/s of infection through 08/15/16 6. Pt will have BM by 08/12/16. 7. Pt will void within 6 hours after having his vallejo removed on 08/11/16. 8. Pt will demonstrate safe gait using FWW in and outside room by 08/16/16. 9. Pt will be mod I or better in ADLs and functional mobility by 08/16/16. STRATEGY TO ACHIEVE GOALS: 1. Assess pain q4h and PRN. Medicate PRN and re-evaluate pain 30-60 minutes after and re-me dicate PRN. Assist with repositioning for comfort. 2. Assess muscle strengths and CMS q4h and PRN. Notify MD if abnormalities are found. 3. Teach pt lumbar precautions and how to manage his C brace. Cue and assist as needed. Enc ourage ambulation to bathroom and in halls as appropriate. Use FWW and staff assist for safe ty. 4. Start pt on clear liquids when he arrives to the floor and advance to general texture as he tolerates. Medicate with anti-emetics PRN. 5. Assess dressing and vitals with temps q4h and PRN. Monitor lab work as ordered. Notify M D with concerns. 6. Assess bowel tones q shift and PRN. Encourage fluid intake and ambulation to help promot e BM. Monitor for bowel movements and if no BM by 08/12/16 use PRN bowel protocol. 7. If pt has no void within 6 hours after vallejo is removed, bladder scan pt and follow MD george peraza to assist empting the bladder. 8. PT intervention and pt/family education and training. -OT therapy sessions and education/training. Outcome: Improving Physical Therapy Plan of Care Treatment Note Summary: Pt was recieved in sidelying with in the room and cleared for therapy and pr e-medicated by RNMallory. Pt states pain is at 6/10 mainly due to his brace. Pt was able to recall all back precautions on this day pre/post tx. Pt was able to ambulate 100' on this da y with FWW before getting tired and needed a seated rest break and wheeled pt back to room d ue to time. Pt was able to complete 4x2 stairs with seated rest break on this day with R roman l going up. Pt displayed good return demo for ascending with Sup but needed CGA-Pricila for fabio cending stairs secondary to LE weakness. Pt would benefit from increased stair training to i mprove functional strength and endurance for LE during descent only on this day. Physical Therapy Discharge Recommendations are: Recommended discharge disposition: (TBD) Post discharge physical therapy recommendation: (TBD) Equipment Recommendations: 2 wheeled walker (FWW) Patient Status/Goals: Reflects last filed data of Patient Status/Goals may be from multiple contributors. Gait Pt foot drop is noticiably less on this day with improved sesation bilateral LE, no LOB on this day but needed extra time due pain and functionaly moblility, Sup with FWW Level of Rawlins : supervision required, verbal cues required Assistive Device: 2 wheeled walker (FWW), brace Distance (feet): 100' Gait Pattern Analysis: 3-point gait Gait Deviations: samson decreased, limb motion velocity decreased, step length decreased Stairs Sup with ascendig, CGA-Pricila for decsending due to LE weakness Number of Stairs: 4x2 with seated rest break between Handrail Location: right side (ascending) Level of Rawlins: supervision required, verbal cues required, contact guard assist, mi nimum assist (75% patient effort) Assistive Device: 1 rail, brace Technique Used: step to step (ascending), step to step (descending) Safety Issues: weight-shifting ability decreased (pt tends to lean forward to compensate fo r weakness in LE to descend) Impairments: strength decreased, pain Transfers Pt at Sup with vc for sit> stand for hand placement and positioning with weakness Sit-Stand, Level of Rawlins: supervision required, verbal cues required Stand-Sit, Level of Rawlins: supervision required, verbal cues required Rib-Vrils-Mve, Assistive Device: 2 wheeled walker (FWW), brace Maintain Weight Bearing Status: able to maintain weight bearing status Safety Issues: balance decreased during turns, step length decreased Impairments: strength decreased, decreased flexibility, pain Bed Mobility Pt most comfortable sidelying presently, LSO donned, needing cues and physical assist for s equence, 1P assist Assistive Device: none Roll Left, Level of Rawlins: verbal cues required, supervision required Scoot/Bridge, Level of Rawlins: supervision required Sidelying to Sit, Level of Rawlins: verbal cues required, supervision required Sit to Sidelying, Level of Rawlins: supervision required, verbal cues required Safety Issues: decreased use of arms for pushing/pulling, decreased use of legs for bridgin g/pushing Impairments: decreased flexibility, strength decreased ROM Except w/in spine precautions, grade C ROM Testing Results: no range of motion deficits identified Strength L LE Strength: QS, HS, DF 5/5, hip flexion 2+/5 R LE Strength: QS, HS 5/5, DF 3+/5 and hip flexion 2-/5 STG GOALS Bed Mobility Goal, Activity Type: supine to sit/sit to supine Rawlins Level: independent Assistive Device: none Time to Achieve: 3 days Goal Status: progressing toward goal Transfer Training Goal, Activity Type: sit to stand/stand to sit Rawlins Level: modified independence Assistive Device: 2 wheeled walker (FWW) Time to Achieve: 3 days Goal Status: progressing toward goal Gait Training Goal, Rawlins Level: modified independence Assistive Device: 2 wheeled walker (FWW) Distance: 150 Time to Achieve: 3 days Goal Status: progressing toward goal Stairs Goal, Rawlins Level: supervision required Assistive Device: 1 rail, cane (straight, single point) Number of Stairs: 12 Time to Achieve: 3 days Goal Status: progressing toward goal Additional Goal #1: Pt/ verbalize and pt demonstrates good understanding of grade C pos top precautions. Time to Achieve: 3 days Goal Status: met Physical Therapy will follow Piter Fleming daily until discharge from therapy or disc harged from the hospital. Identified Problems Needing Skilled Intervention: Impaired bed mobility, transfers, gait in stability, weakness, knowledge deficit and pain., aerobic capacity/endurance, gait, locomoti on, and balance Planned Interventions: bed mobility training, gait training, home exercise program, stair t raining, postural re-education, patient/family education, orthotic fitting/training, transfe r training Electronically signed by: Teja Flynn PTA, 08/13/2016 12:27 lan of Care - Christopher goldstein, John Esteban, RN - 08/13/2016 3:13 AM PSTProblem: Patient Care Overview (Adult) Goal: Care Team Goals & Evaluation PROBLEM-RELATED GOALS: 1. Pt s pain will be scored at 3 out of 10 by 08/13/16. 2. Sensation and muscle strengths to lower extremities will remain at pt s baseline or im prove by 08/14/16. 3. Pt will demonstrate lumbar precautions and ambulate with staff by 08/11/16. 4. Pt will tolerate a general textured diet by 08/11/16. 5. Pt will be free from s/s of infection through 08/15/16 6. Pt will have BM by 08/12/16. 7. Pt will void within 6 hours after having his vallejo removed on 08/11/16. 8. Pt will demonstrate safe gait using FWW in and outside room by 08/16/16. 9. Pt will be mod I or better in ADLs and functional mobility by 08/16/16. STRATEGY TO ACHIEVE GOALS: 1. Assess pain q4h and PRN. Medicate PRN and re-evaluate pain 30-60 minutes after and re-me dicate PRN. Assist with repositioning for comfort. 2. Assess muscle strengths and CMS q4h and PRN. Notify MD if abnormalities are found. 3. Teach pt lumbar precautions and how to manage his C brace. Cue and assist as needed. Enc ourage ambulation to bathroom and in halls as appropriate. Use FWW and staff assist for safe ty. 4. Start pt on clear liquids when he arrives to the floor and advance to general texture as he tolerates. Medicate with anti-emetics PRN. 5. Assess dressing and vitals with temps q4h and PRN. Monitor lab work as ordered. Notify M D with concerns. 6. Assess bowel tones q shift and PRN. Encourage fluid intake and ambulation to help promot e BM. Monitor for bowel movements and if no BM by 08/12/16 use PRN bowel protocol. 7. If pt has no void within 6 hours after vallejo is removed, bladder scan pt and follow MD vazquez rdtom to assist empting the bladder. 8. PT intervention and pt/family education and training. -OT therapy sessions and education/training. Outcome: Improving Goal Evaluation: Patient sleeping on/off. Incisional pain moderately controlled with PO hydrocodone (2 pills ) and Flexeril 10 mg ( no IV morphine needed up to now). VS stable. ROXANNE patent and collecting moderately amounts of serosanguineous drainage. C Brace on at all times. Incisional dressin g intact. Slight numbness to bilateral legs (baseline). Last night ambulate from the chair to the bed and tolerated activity well (noticed to be slightly unsteady on his feet). 1 pers on SBA and FWW. Voiding well and via urinal. SCD's on. Bi-pap on all night. No SOB. Lungs cl ear. No other changes to assessment. lan of Care - Pat Gordon, GOLDIE - 08/12/2016 10:15 PM PSTProblem: Patient Care Overview (Adult) Goal: Care Team Goals & Evaluation PROBLEM-RELATED GOALS: 1. Pt s pain will be scored at 3 out of 10 by 08/13/16. 2. Sensation and muscle strengths to lower extremities will remain at pt s baseline or im prove by 08/14/16. 3. Pt will demonstrate lumbar precautions and ambulate with staff by 08/11/16. 4. Pt will tolerate a general textured diet by 08/11/16. 5. Pt will be free from s/s of infection through 08/15/16 6. Pt will have BM by 08/12/16. 7. Pt will void within 6 hours after having his vallejo removed on 08/11/16. 8. Pt will demonstrate safe gait using FWW in and outside room by 08/16/16. 9. Pt will be mod I or better in ADLs and functional mobility by 08/16/16. STRATEGY TO ACHIEVE GOALS: 1. Assess pain q4h and PRN. Medicate PRN and re-evaluate pain 30-60 minutes after and re-me dicate PRN. Assist with repositioning for comfort. 2. Assess muscle strengths and CMS q4h and PRN. Notify MD if abnormalities are found. 3. Teach pt lumbar precautions and how to manage his C brace. Cue and assist as needed. Enc ourage ambulation to bathroom and in halls as appropriate. Use FWW and staff assist for safe ty. 4. Start pt on clear liquids when he arrives to the floor and advance to general texture as he tolerates. Medicate with anti-emetics PRN. 5. Assess dressing and vitals with temps q4h and PRN. Monitor lab work as ordered. Notify M D with concerns. 6. Assess bowel tones q shift and PRN. Encourage fluid intake and ambulation to help promot e BM. Monitor for bowel movements and if no BM by 08/12/16 use PRN bowel protocol. 7. If pt has no void within 6 hours after vallejo is removed, bladder scan pt and follow MD vazquez rdtom to assist empting the bladder. 8. PT intervention and pt/family education and training. -OT therapy sessions and education/training. Goal Evaluation: Piter is refusing the continuous pulse oximeter, but it is still in the room. He wears hi s home CPAP at night. SpO2: 97 % on room air, BS clear. lan of Care - Pi Mallory Rock RN - 08/12/2016 8:41 PM PSTProblem: Patient Care Overview (Adult) Goal: Care Team Goals & Evaluation PROBLEM-RELATED GOALS: 1. Pt s pain will be scored at 3 out of 10 by 08/13/16. 2. Sensation and muscle strengths to lower extremities will remain at pt s baseline or im prove by 08/14/16. 3. Pt will demonstrate lumbar precautions and ambulate with staff by 08/11/16. 4. Pt will tolerate a general textured diet by 08/11/16. 5. Pt will be free from s/s of infection through 08/15/16 6. Pt will have BM by 08/12/16. 7. Pt will void within 6 hours after having his vallejo removed on 08/11/16. 8. Pt will demonstrate safe gait using FWW in and outside room by 08/16/16. 9. Pt will be mod I or better in ADLs and functional mobility by 08/16/16. STRATEGY TO ACHIEVE GOALS: 1. Assess pain q4h and PRN. Medicate PRN and re-evaluate pain 30-60 minutes after and re-me dicate PRN. Assist with repositioning for comfort. 2. Assess muscle strengths and CMS q4h and PRN. Notify MD if abnormalities are found. 3. Teach pt lumbar precautions and how to manage his C brace. Cue and assist as needed. Enc ourage ambulation to bathroom and in halls as appropriate. Use FWW and staff assist for safe ty. 4. Start pt on clear liquids when he arrives to the floor and advance to general texture as he tolerates. Medicate with anti-emetics PRN. 5. Assess dressing and vitals with temps q4h and PRN. Monitor lab work as ordered. Notify M D with concerns. 6. Assess bowel tones q shift and PRN. Encourage fluid intake and ambulation to help promot e BM. Monitor for bowel movements and if no BM by 08/12/16 use PRN bowel protocol. 7. If pt has no void within 6 hours after vallejo is removed, bladder scan pt and follow MD o rders to assist empting the bladder. 8. PT intervention and pt/family education and training. -OT therapy sessions and education/training. Outcome: Improving Goal Evaluation: Discharge Plan: TBD; home with Post-Op Day: 2 Procedure: L2-5 LAIF with decompression Surgeon: Luisito Drains/ Lines: IV, 2 JPs on left Braces/ Collar Grade: C brace Mobility: up to chair for breakfast, up with therapies, SBA with FWW Continuous Pulse Ox: yes Diabetic: no Pain: yes, controlled with hydrocodone 10 mg po Urinal: yes Activity: 1 person SBA/FWW/ SCD's Pt complained of more pain at the end of the shift after working with therapies all day. May garces rehabilitation team lead, TANNER Melgar called, and ordered Flexeril q 6 instead of q 8, and said to give 2 mg of morphine if necessary, passed on to noc shift. VSS. Will continue to monitor. Dressings CDI. Denies numbness and tingling except for a little in R side, probably from surgery approach and expect to resolve over time. Pt also had chronic numbness baseline in both legs prior to surgery. pper [facility] Emani Ravi, VIDEOTAPE SALES REPRESENTATIVE - 08/12/2016 3:29 PM PSTProblem: Patient Care Overview (Adult) Goal: Care Team Goals & Evaluation PROBLEM-RELATED GOALS: 1. Pt s pain will be scored at 3 out of 10 by 08/13/16. 2. Sensation and muscle strengths to lower extremities will remain at pt s baseline or im prove by 08/14/16. 3. Pt will demonstrate lumbar precautions and ambulate with staff by 08/11/16. 4. Pt will tolerate a general textured diet by 08/11/16. 5. Pt will be free from s/s of infection through 08/15/16 6. Pt will have BM by 08/12/16. 7. Pt will void within 6 hours after having his vallejo removed on 08/11/16. 8. Pt will demonstrate safe gait using FWW in and outside room by 08/16/16. 9. Pt will be mod I or better in ADLs and functional mobility by 08/16/16. STRATEGY TO ACHIEVE GOALS: 1. Assess pain q4h and PRN. Medicate PRN and re-evaluate pain 30-60 minutes after and re-me dicate PRN. Assist with repositioning for comfort. 2. Assess muscle strengths and CMS q4h and PRN. Notify MD if abnormalities are found. 3. Teach pt lumbar precautions and how to manage his C brace. Cue and assist as needed. Enc ourage ambulation to bathroom and in halls as appropriate. Use FWW and staff assist for safe ty. 4. Start pt on clear liquids when he arrives to the floor and advance to general texture as he tolerates. Medicate with anti-emetics PRN. 5. Assess dressing and vitals with temps q4h and PRN. Monitor lab work as ordered. Notify M D with concerns. 6. Assess bowel tones q shift and PRN. Encourage fluid intake and ambulation to help promot e BM. Monitor for bowel movements and if no BM by 08/12/16 use PRN bowel protocol. 7. If pt has no void within 6 hours after vallejo is removed, bladder scan pt and follow MD vazquez rders to assist empting the bladder. 8. PT intervention and pt/family education and training. -OT therapy sessions and education/training. Goal Evaluation: Patient remains on room air with a Sp02 of 97. Breath sounds clear. Continue to monitor p atient. lan of Care - Destinee Godinez COTA - 08/12/2016 3:15 PM PSTProblem: Patient Care Overview (Adult) Goal: Care Team Goals & Evaluation PROBLEM-RELATED GOALS: 1. Pt s pain will be scored at 3 out of 10 by 08/13/16. 2. Sensation and muscle strengths to lower extremities will remain at pt s baseline or im prove by 08/14/16. 3. Pt will demonstrate lumbar precautions and ambulate with staff by 08/11/16. 4. Pt will tolerate a general textured diet by 08/11/16. 5. Pt will be free from s/s of infection through 08/15/16 6. Pt will have BM by 08/12/16. 7. Pt will void within 6 hours after having his vallejo removed on 08/11/16. 8. Pt will demonstrate safe gait using FWW in and outside room by 08/16/16. 9. Pt will be mod I or better in ADLs and functional mobility by 08/16/16. STRATEGY TO ACHIEVE GOALS: 1. Assess pain q4h and PRN. Medicate PRN and re-evaluate pain 30-60 minutes after and re-me dicate PRN. Assist with repositioning for comfort. 2. Assess muscle strengths and CMS q4h and PRN. Notify MD if abnormalities are found. 3. Teach pt lumbar precautions and how to manage his C brace. Cue and assist as needed. Enc ourage ambulation to bathroom and in halls as appropriate. Use FWW and staff assist for safe ty. 4. Start pt on clear liquids when he arrives to the floor and advance to general texture as he tolerates. Medicate with anti-emetics PRN. 5. Assess dressing and vitals with temps q4h and PRN. Monitor lab work as ordered. Notify M D with concerns. 6. Assess bowel tones q shift and PRN. Encourage fluid intake and ambulation to help promot e BM. Monitor for bowel movements and if no BM by 08/12/16 use PRN bowel protocol. 7. If pt has no void within 6 hours after vallejo is removed, bladder scan pt and follow MD vazquez rders to assist empting the bladder. 8. PT intervention and pt/family education and training. -OT therapy sessions and education/training. Occupational Therapy Plan of Care Initial Evaluation, Treatment Note Summary: Pt seenf for ADL training using solutions architect consultant and sock aid. went over precautions, pt was able to state his precautions this afternoon. Pt does present with mild tremor but is a ble to manage AE with LB dressing. Pt sat to EOB using log roll w/o assist, but required Mo d A with B LE's into bed at the end of our session. Pt's present, and sttarted famuily training. posted C Precaution sheet for family/staff reminder in room. Next visit: transf er training, shower/toilet, hygiene? go over DME needs Occupational Therapy Discharge Recommendations are: Recommended discharge disposition: home with assist Post discharge occupational therapy recommendation: (TBD) Equipment Recommendations: (TBD) Patient Status/Goals: Reflects last filed data of Patient Status/Goals may be from multiple contributors. ADLs LB, Level of Rawlins: verbal cues required, minimum assist (75% patient effort) Assistive Device: solutions architect consultant, sock-aid LB Dressing Assess/Train, Position: supported standing, sitting LB Dressing Assess/Train, Impairments: decreased flexibility, ROM decreased, coordination i mpaired, pain STG Goals Transfer Training Goal, Activity Type: bed to chair /chair to bed, sit to stand/stand to si t, toilet Rawlins Level: modified independence Assistive Device: 2 wheeled walker (FWW) Time to Achieve: by discharge Goal Status: continued, progressing toward goal Toileting Goal, Rawlins Level: modified independence Time to Achieve: by discharge Goal Status: not addressed UB Dressing Goal, Rawlins Level: modified independence Time to Achieve: by discharge Goal Status: not addressed LB Dressing Goal, Rawlins Level: modified independence Adaptive Equipment: solutions architect consultant, sock-aid Time to Achieve: by discharge Goal Status: progressing toward goal LTG Goals Occupational Therapy will follow Piter Fleming 3 times/wk until discharge from therap y or discharged from the hospital. Identified Problems Needing Skilled Intervention: pain, weakness, decreased ADLs, increas ed risk of falls s/p surgery, aerobic capacity/endurance, gait, locomotion, and balance Planned Interventions:ADL retraining, strengthening, transfer training Electronically signed by: BAKARI Wood, 08/12/2016 15:15 lan of [place] - Drea Harris RN - 08/12/2016 2:40 PM PSTProblem: Discharge Planning Goal: Patient will be discharged in a safe manner Outcome: Improving This CM met with patient and his spouse, Aby, to discuss his discharge plan. He reports that he is planning on returning home at discharge and Aby will be his transpor t back home to [place], [place], which could possibly be as early as tomorrow. He is usually independent with all his needs prior to this stay and still drives. In the past he has been to OP PT, in [place], who is his friend, and he will most like re turn there after cleared by his surgeon after his first post op visit. His PCP is Michael Grijalva MD, in [place], and he uses [facility] for his pharmacy needs [facility]. He does have a lift chair at home and also a shower chair with ADA toilet, but does not hav e a shower chair. Called [facility] and they confirmed they have one so let patient know this information. Gave [facility]'s address and phone number to patient and they can stop by and pick it up on the way home possibly tomorrow. Patient will need a 2WW walker at home so faxed the DME walker referral order to [facility], (patient's choice after options were given), along with the pertinent c vazquez notes, which included the face sheet, H&P, PT notes. Confirmed with [facility] they got the order. Requested they deliver the walker to patient's room either this afternoon or in AM for anticipated discharge tomorrow. Signed preference form with fax transmission and confirmation sheet placed in ghost chart.Electron ically signed by: Drea Harris RN 08/12/2016 14:40 lan of [place] - Teja Flynn PTA - 08/12/2016 12:23 PM PSTProblem: Patient Care Overview (Adult) Goal: Care Team Goals & Evaluation PROBLEM-RELATED GOALS: 1. Pt s pain will be scored at 3 out of 10 by 08/13/16. 2. Sensation and muscle strengths to lower extremities will remain at pt s baseline or im prove by 08/14/16. 3. Pt will demonstrate lumbar precautions and ambulate with staff by 08/11/16. 4. Pt will tolerate a general textured diet by 08/11/16. 5. Pt will be free from s/s of infection through 08/15/16 6. Pt will have BM by 08/12/16. 7. Pt will void within 6 hours after having his vallejo removed on 08/11/16. 8. Pt will demonstrate safe gait using FWW in and outside room by 08/16/16. 9. Pt will be mod I or better in ADLs and functional mobility by 08/16/16. STRATEGY TO ACHIEVE GOALS: 1. Assess pain q4h and PRN. Medicate PRN and re-evaluate pain 30-60 minutes after and re-me dicate PRN. Assist with repositioning for comfort. 2. Assess muscle strengths and CMS q4h and PRN. Notify MD if abnormalities are found. 3. Teach pt lumbar precautions and how to manage his C brace. Cue and assist as needed. Enc ourage ambulation to bathroom and in halls as appropriate. Use FWW and staff assist for safe ty. 4. Start pt on clear liquids when he arrives to the floor and advance to general texture as he tolerates. Medicate with anti-emetics PRN. 5. Assess dressing and vitals with temps q4h and PRN. Monitor lab work as ordered. Notify M D with concerns. 6. Assess bowel tones q shift and PRN. Encourage fluid intake and ambulation to help promot e BM. Monitor for bowel movements and if no BM by 08/12/16 use PRN bowel protocol. 7. If pt has no void within 6 hours after vallejo is removed, bladder scan pt and follow o rders to assist empting the bladder. 8. PT intervention and pt/family education and training. -OT therapy sessions and education/training. Outcome: Improving Physical Therapy Plan of Care Treatment Note Summary: Pt was in R sidelying with spouse in room and clear for therapy per RNMallory. Pt states pain at 2/10 at rest. Pt was returned to R sidelying per request with all needs in r each. Pt was able to recall 1 of 3 precautions( needed vc for lifting and twisting precautio ns). Pt was able to progress gt. to 20'x3 with two standing rest breaks during gt. training due to reduced functional endurance. Pt completed ther. ex. in standing and EOB but needed rest breaks between sets. Pt needed vc for back percautions x3 and for upright posture durin g gt. training x3. Pt required increased time due to pain and balance during sit>stand and t urning during gt. training. Pt required min.A from sidelying<>sit for trunk to comply with b ack precautions. Pt was able to recite 2 of 3 precaution post tx(vc for lifting precaution). Pt still needs close CGA-Min. A for dynamic balance during gt training and min.A from sidel boris<>sit<>stand to help maintain back precaution and balance. Pt still fatigues fairly quic kly and would benefit therapy to promote functional endurance and strength. Pt still needs t o have stairs assessment. Physical Therapy Discharge Recommendations are: Recommended discharge disposition: (TBD) Post discharge physical therapy recommendation: (TBD) Equipment Recommendations: 2 wheeled walker (FWW) Patient Status/Goals: Reflects last filed data of Patient Status/Goals may be from multiple contributors. Gait Pt with notable foot drop right LE and exaggerated hip flexion same side, notes bilateral f oot numbness (present before surgery), occasional small LOB, close CGA-min A for safety with FWW. Level of Rawlins : contact guard assist, minimum assist (75% patient effort) Assistive Device: 2 wheeled walker (FWW), brace Distance (feet): 20'x3 Gait Pattern Analysis: 3-point gait Gait Deviations: samson decreased, step length decreased, [id number] clearance decreased Transfers Height of bed elevated to ease transition, cues for hand placement and posture Sit-Stand, Level of Rawlins: contact guard assist, minimum assist (75% patient effort) Stand-Sit, Level of Rawlins: contact guard assist [id number], Assistive Device: 2 wheeled walker (FWW), brace Maintain Weight Bearing Status: able to maintain weight bearing status Safety Issues: balance decreased during turns, step length decreased Impairments: strength decreased, impaired balance, coordination impaired, motor control imp aired Bed Mobility Pt most comfortable sidelying presently, LSO donned, needing cues and physical assist for s equence, 1P assist Assistive Device: bed rails Roll Left, Level of Rawlins: verbal cues required Scoot/Bridge, Level of Rawlins: supervision required Sidelying to Sit, Level of Rawlins: minimum assist (75% patient effort) Sit to Sidelying, Level of Rawlins: minimum assist (75% patient effort) Safety Issues: decreased use of arms for pushing/pulling, decreased use of legs for bridgin g/pushing Impairments: muscle tone abnormal, decreased flexibility, strength decreased, impaired rosalie nce, coordination impaired Balance Therapeutic Exercise Seated exercises: bilateral, ankle pumps, hip abduction/adduction, long arc quads Repetitions: APx20, Abd/Add x10, LAQ- 5x2, Standing exercises: weight shifting, marching, stepping forward/backward Repetitions: Wt. S.- x10, Marching- 5x2, Steps- 5x2 Functional Endurance ROM Except w/in spine precautions, grade C ROM Testing Results: no range of motion deficits identified Strength L LE Strength: QS, HS, DF 5/5, hip flexion 2+/5 R LE Strength: QS, HS 5/5, DF 3+/5 and hip flexion 2-/5 STG GOALS Bed Mobility Goal, Activity Type: supine to sit/sit to supine Rawlins Level: independent Assistive Device: none Time to Achieve: 3 days Goal Status: progressing toward goal Transfer Training Goal, Activity Type: sit to stand/stand to sit Rawlins Level: modified independence Assistive Device: 2 wheeled walker (FWW) Time to Achieve: 3 days Goal Status: progressing toward goal Gait Training Goal, Rawlins Level: modified independence Assistive Device: 2 wheeled walker (FWW) Distance: 150 Time to Achieve: 3 days Goal Status: progressing toward goal Stairs Goal, Rawlins Level: supervision required Assistive Device: 1 rail, cane (straight, single point) Number of Stairs: 12 Time to Achieve: 3 days Goal Status: new Additional Goal #1: Pt/ verbalize and pt demonstrates good understanding of grade C pos top precautions. Time to Achieve: 3 days Goal Status: new Physical Therapy will follow Piter Fleming daily until discharge from therapy or disc harged from the hospital. Identified Problems Needing Skilled Intervention: Impaired bed mobility, transfers, gait in stability, weakness, knowledge deficit and pain., aerobic capacity/endurance, gait, locomoti on, and balance Planned Interventions: bed mobility training, gait training, home exercise program, stair t raining, postural re-education, patient/family education, orthotic fitting/training, transfe r training Electronically signed by: Teja Flynn PTA, 08/12/2016 12:07 lan of Care - John Shell RN - 08/12/2016 4:46 AM PSTProblem: Patient Care Overview (Adult) Goal: Care Team Goals & Evaluation PROBLEM-RELATED GOALS: 1. Pt s pain will be scored at 3 out of 10 by 08/13/16. 2. Sensation and muscle strengths to lower extremities will remain at pt s baseline or im prove by 08/14/16. 3. Pt will demonstrate lumbar precautions and ambulate with staff by 08/11/16. 4. Pt will tolerate a general textured diet by 08/11/16. 5. Pt will be free from s/s of infection through 08/15/16 6. Pt will have BM by 08/12/16. 7. Pt will void within 6 hours after having his vallejo removed on 08/11/16. 8. Pt will demonstrate safe gait using FWW in and outside room by 08/16/16. 9. Pt will be mod I or better in ADLs and functional mobility by 08/16/16. STRATEGY TO ACHIEVE GOALS: 1. Assess pain q4h and PRN. Medicate PRN and re-evaluate pain 30-60 minutes after and re-me dicate PRN. Assist with repositioning for comfort. 2. Assess muscle strengths and CMS q4h and PRN. Notify MD if abnormalities are found. 3. Teach pt lumbar precautions and how to manage his C brace. Cue and assist as needed. Enc ourage ambulation to bathroom and in halls as appropriate. Use FWW and staff assist for safe ty. 4. Start pt on clear liquids when he arrives to the floor and advance to general texture as he tolerates. Medicate with anti-emetics PRN. 5. Assess dressing and vitals with temps q4h and PRN. Monitor lab work as ordered. Notify M D with concerns. 6. Assess bowel tones q shift and PRN. Encourage fluid intake and ambulation to help promot e BM. Monitor for bowel movements and if no BM by 08/12/16 use PRN bowel protocol. 7. If pt has no void within 6 hours after vallejo is removed, bladder scan pt and follow MD vazquez rders to assist empting the bladder. 8. PT intervention and pt/family education and training. -OT therapy sessions and education/training. Outcome: Improving Goal Evaluation: patient sleeping on/off. Incisional pain moderately. controled with PO hydrocodone (2 pill s) and IV morphine 4 mg. VS stable. ROXANNE patent and collecting moderately amounts of serosangu ineous drainage. C Brace on at all times. Incisional dressing intact. Slight numbness to bi lateral legs. Was able to ambulate from the bed to the chair (noticed to be slightly unstead y on his feet). 1 person SBA and FWW. SCD's on. Bi-pap on all night. No SOB. Lungs clear. N o other changes to assessment. lan of Care - Alvaro Hammond, VIDEOTAPE SALES REPRESENTATIVE - 08/11/2016 9:37 PM PSTProblem: Patient Care Overview (Adult) Goal: Care Team Goals & Evaluation PROBLEM-RELATED GOALS: 1. Pt s pain will be scored at 3 out of 10 by 08/13/16. 2. Sensation and muscle strengths to lower extremities will remain at pt s baseline or im prove by 08/14/16. 3. Pt will demonstrate lumbar precautions and ambulate with staff by 08/11/16. 4. Pt will tolerate a general textured diet by 08/11/16. 5. Pt will be free from s/s of infection through 08/15/16 6. Pt will have BM by 08/12/16. 7. Pt will void within 6 hours after having his vallejo removed on 08/11/16. 8. Pt will demonstrate safe gait using FWW in and outside room by 08/16/16. 9. Pt will be mod I or better in ADLs and functional mobility by 08/16/16. STRATEGY TO ACHIEVE GOALS: 1. Assess pain q4h and PRN. Medicate PRN and re-evaluate pain 30-60 minutes after and re-me dicate PRN. Assist with repositioning for comfort. 2. Assess muscle strengths and CMS q4h and PRN. Notify MD if abnormalities are found. 3. Teach pt lumbar precautions and how to manage his C brace. Cue and assist as needed. Enc ourage ambulation to bathroom and in halls as appropriate. Use FWW and staff assist for safe ty. 4. Start pt on clear liquids when he arrives to the floor and advance to general texture as he tolerates. Medicate with anti-emetics PRN. 5. Assess dressing and vitals with temps q4h and PRN. Monitor lab work as ordered. Notify M D with concerns. 6. Assess bowel tones q shift and PRN. Encourage fluid intake and ambulation to help promot e BM. Monitor for bowel movements and if no BM by 08/12/16 use PRN bowel protocol. 7. If pt has no void within 6 hours after vallejo is removed, bladder scan pt and follow MD o rders to assist empting the bladder. 8. PT intervention and pt/family education and training. -OT therapy sessions and education/training. Goal Evaluation: Pt on RA, NIV home unit at bedside with humidifier filled, cont. Pulse ox still in use. Pt denies need of help placing appliance when ready for sleep. lan of Care - Oziel Choe, OT - 08/11/2016 3:45 PM PSTProblem: Patient Care Overview (Adult) Goal: Care Team Goals & Evaluation PROBLEM-RELATED GOALS: 1. Pt s pain will be scored at 3 out of 10 by 08/13/16. 2. Sensation and muscle strengths to lower extremities will remain at pt s baseline or im prove by 08/14/16. 3. Pt will demonstrate lumbar precautions and ambulate with staff by 08/11/16. 4. Pt will tolerate a general textured diet by 08/11/16. 5. Pt will be free from s/s of infection through 08/15/16 6. Pt will have BM by 08/12/16. 7. Pt will void within 6 hours after having his vallejo removed on 08/11/16. 8. Pt will demonstrate safe gait using FWW in and outside room by 08/16/16. 9. Pt will be mod I or better in ADLs and functional mobility by 08/16/16. STRATEGY TO ACHIEVE GOALS: 1. Assess pain q4h and PRN. Medicate PRN and re-evaluate pain 30-60 minutes after and re-me dicate PRN. Assist with repositioning for comfort. 2. Assess muscle strengths and CMS q4h and PRN. Notify MD if abnormalities are found. 3. Teach pt lumbar precautions and how to manage his C brace. Cue and assist as needed. Enc ourage ambulation to bathroom and in halls as appropriate. Use FWW and staff assist for safe ty. 4. Start pt on clear liquids when he arrives to the floor and advance to general texture as he tolerates. Medicate with anti-emetics PRN. 5. Assess dressing and vitals with temps q4h and PRN. Monitor lab work as ordered. Notify M D with concerns. 6. Assess bowel tones q shift and PRN. Encourage fluid intake and ambulation to help promot e BM. Monitor for bowel movements and if no BM by 08/12/16 use PRN bowel protocol. 7. If pt has no void within 6 hours after vallejo is removed, bladder scan pt and follow MD george peraza to assist empting the bladder. 8. PT intervention and pt/family education and training. -OT therapy sessions and education/training. Occupational Therapy Plan of Care Initial Evaluation, Treatment Note Summary: Pt seen for eval and treat. Pt declined therapy in AM having just finished with PT, feeling pain and fatigue. Pt visited again in PM, transferred from supine to EOB, then stood into FWW. Pt took 4 steps forward, announced fatigue, mild dizziness, requested retur n to bed. Pt returned to EOB, positioned self properly, then returned to supine in bed. Ca ll light in reach. Pt and spouse educated in spinal C brace mobility precautions. Occupational Therapy Discharge Recommendations are: Recommended discharge disposition: home with assist Post discharge occupational therapy recommendation: (TBD) Equipment Recommendations: (TBD) Patient Status/Goals: Reflects last filed data of Patient Status/Goals may be from multiple contributors. Bed Mobility Pt at min A for supine to sit due to weakness, pain s/p surgery Assistive Device: bed rails Supine to Sit, Level of Rawlins: minimum assist (75% patient effort), verbal cues requ ired Sit to Supine, Level of Rawlins: minimum assist (75% patient effort), verbal cues requ ired Safety Issues: decreased use of arms for pushing/pulling, decreased use of legs for bridgin g/pushing Impairments: coordination impaired, impaired balance, strength decreased, pain Transfers Pt at [facility] for sit>stand due to weakness, pain s/p surgery Sit-Stand, Level of Rawlins: contact guard assist, verbal cues required Stand-Sit, Level of Rawlins: contact guard assist, verbal cues required [id number], Assistive Device: 2 wheeled walker (FWW) Safety Issues: balance decreased during turns, sequencing ability decreased, step length de creased, loses balance backward Impairments: coordination impaired, strength decreased, motor control impaired, sensation d ecreased STG Goals Transfer Training Goal, Activity Type: bed to chair /chair to bed, sit to stand/stand to si t, toilet Rawlins Level: modified independence Assistive Device: 2 wheeled walker (FWW) Time to Achieve: by discharge Goal Status: new Toileting Goal, Rawlins Level: modified independence Time to Achieve: by discharge Goal Status: new UB Dressing Goal, Rawlins Level: modified independence Time to Achieve: by discharge Goal Status: new LB Dressing Goal, Rawlins Level: modified independence Adaptive Equipment: solutions architect consultant, sock-aid Time to Achieve: by discharge Goal Status: new Occupational Therapy will follow Piter Fleming 3 times/wk until discharge from [facility] or discharged from the hospital. Identified Problems Needing Skilled Intervention: pain, weakness, decreased ADLs, increas ed risk of falls s/p surgery, aerobic capacity/endurance, gait, locomotion, and balance Planned Interventions:ADL retraining, strengthening, transfer training Electronically signed by: Oziel Choe OT, 08/11/2016 17:05 lan of Care - Emani Smith, GOLDIE - 08/11/2016 3:16 PM PSTProblem: Patient Care Overview (Adult) Goal: Care Team Goals & Evaluation PROBLEM-RELATED GOALS: 1. Pt s pain will be scored at 3 out of 10 by 08/13/16. 2. Sensation and muscle strengths to lower extremities will remain at pt s baseline or im prove by 08/14/16. 3. Pt will demonstrate lumbar precautions and ambulate with staff by 08/11/16. 4. Pt will tolerate a general textured diet by 08/11/16. 5. Pt will be free from s/s of infection through 08/15/16 6. Pt will have BM by 08/12/16. 7. Pt will void within 6 hours after having his vallejo removed on 08/11/16. 8. Pt will demonstrate safe gait using FWW in and outside room by 08/16/16. STRATEGY TO ACHIEVE GOALS: 1. Assess pain q4h and PRN. Medicate PRN and re-evaluate pain 30-60 minutes after and re-me dicate PRN. Assist with repositioning for comfort. 2. Assess muscle strengths and CMS q4h and PRN. Notify MD if abnormalities are found. 3. Teach pt lumbar precautions and how to manage his C brace. Cue and assist as needed. Enc ourage ambulation to bathroom and in halls as appropriate. Use FWW and staff assist for safe ty. 4. Start pt on clear liquids when he arrives to the floor and advance to general texture as he tolerates. Medicate with anti-emetics PRN. 5. Assess dressing and vitals with temps q4h and PRN. Monitor lab work as ordered. Notify M D with concerns. 6. Assess bowel tones q shift and PRN. Encourage fluid intake and ambulation to help promot e BM. Monitor for bowel movements and if no BM by 08/12/16 use PRN bowel protocol. 7. If pt has no void within 6 hours after vallejo is removed, bladder scan pt and follow MD o rders to assist empting the bladder. 8. PT intervention and pt/family education and training. Goal Evaluation: Patient is on room air with sats at 99. Breath sounds clear. Volumes of 1750 achieved wit h insp. Continue to monitor. lan of Care - Nessa Carlton RN - 08/11/2016 2:19 PM PSTProblem: Patient Care Overview (Adult) Goal: Care Team Goals & Evaluation PROBLEM-RELATED GOALS: 1. Pt s pain will be scored at 3 out of 10 by 08/13/16. 2. Sensation and muscle strengths to lower extremities will remain at pt s baseline or im prove by 08/14/16. 3. Pt will demonstrate lumbar precautions and ambulate with staff by 08/11/16. 4. Pt will tolerate a general textured diet by 08/11/16. 5. Pt will be free from s/s of infection through 08/15/16 6. Pt will have BM by 08/12/16. 7. Pt will void within 6 hours after having his vallejo removed on 08/11/16. 8. Pt will demonstrate safe gait using FWW in and outside room by 08/16/16. STRATEGY TO ACHIEVE GOALS: 1. Assess pain q4h and PRN. Medicate PRN and re-evaluate pain 30-60 minutes after and re-me dicate PRN. Assist with repositioning for comfort. 2. Assess muscle strengths and CMS q4h and PRN. Notify MD if abnormalities are found. 3. Teach pt lumbar precautions and how to manage his C brace. Cue and assist as needed. Enc ourage ambulation to bathroom and in halls as appropriate. Use FWW and staff assist for safe ty. 4. Start pt on clear liquids when he arrives to the floor and advance to general texture as he tolerates. Medicate with anti-emetics PRN. 5. Assess dressing and vitals with temps q4h and PRN. Monitor lab work as ordered. Notify M D with concerns. 6. Assess bowel tones q shift and PRN. Encourage fluid intake and ambulation to help promot e BM. Monitor for bowel movements and if no BM by 08/12/16 use PRN bowel protocol. 7. If pt has no void within 6 hours after vallejo is removed, bladder scan pt and follow o rdtom to assist empting the bladder. 8. PT intervention and pt/family education and training. Outcome: Improving Goal Evaluation: Surgical pain controlled with norco, flexeril and morphine for breakthru pain. Up amb in h alls with therapy and in chair for meals, knowledgable about lumbar precautions and brace, j p drains inplace x2 with sanguinous drainage, tolerating general diet well,baseline numbness continues to both feet, family at bedside supportive. lan of Emani Bernabe, PT - 08/11/2016 10:02 AM PSTProblem: Patient Care Overview (Adult) Goal: Care Team Goals & Evaluation PROBLEM-RELATED GOALS: 1. Pt s pain will be scored at 3 out of 10 by 08/13/16. 2. Sensation and muscle strengths to lower extremities will remain at pt s baseline or im prove by 08/14/16. 3. Pt will demonstrate lumbar precautions and ambulate with staff by 08/11/16. 4. Pt will tolerate a general textured diet by 08/11/16. 5. Pt will be free from s/s of infection through 08/15/16 6. Pt will have BM by 08/12/16. 7. Pt will void within 6 hours after having his vallejo removed on 08/11/16. 8. Pt will demonstrate safe gait using FWW in and outside room by 08/16/16. STRATEGY TO ACHIEVE GOALS: 1. Assess pain q4h and PRN. Medicate PRN and re-evaluate pain 30-60 minutes after and re-me dicate PRN. Assist with repositioning for comfort. 2. Assess muscle strengths and CMS q4h and PRN. Notify MD if abnormalities are found. 3. Teach pt lumbar precautions and how to manage his C brace. Cue and assist as needed. Enc ourage ambulation to bathroom and in halls as appropriate. Use FWW and staff assist for safe ty. 4. Start pt on clear liquids when he arrives to the floor and advance to general texture as he tolerates. Medicate with anti-emetics PRN. 5. Assess dressing and vitals with temps q4h and PRN. Monitor lab work as ordered. Notify M D with concerns. 6. Assess bowel tones q shift and PRN. Encourage fluid intake and ambulation to help promot e BM. Monitor for bowel movements and if no BM by 08/12/16 use PRN bowel protocol. 7. If pt has no void within 6 hours after vallejo is removed, bladder scan pt and follow MD o rders to assist empting the bladder. 8. PT intervention and pt/family education and training. Physical Therapy Plan of Care Initial Evaluation, Treatment Note Summary: PT eval/tx completed s/p L2-S1 fusion, C brace. Pt did not attend spine class. P T educated with demonstrations in all grade C postop precautions/education with demonstratio ns. Pt participated in bed mobility training, transfers and initial gait trg to outside door and back with several short breaks needed. and son arrived as mobilization beginning. Pt pleasant and cooperative, mildly unsteady with 2-3 small LOB using FWW and close CGA-min A of PT, foot drop notable on right LE, RN informed. Pain well controlled but did not sleep well. BTB after activity. All equipment and needs in reach. Pt is currently fall risk and ne eding 1-2P assist for safe mobility with walker, short distance tolerance only. PT to see in a.m. And progress per toward modified indpt status. Physical Therapy Discharge Recommendations are: Recommended discharge disposition: (TBD) Post discharge physical therapy recommendation: (TBD) Equipment Recommendations: 2 wheeled walker (FWW) Patient Status/Goals: Reflects last filed data of Patient Status/Goals may be from multiple contributors. Gait Pt with notable foot drop right LE and exaggerated hip flexion same side, notes bilateral f oot numbness (present before surgery), occasional small LOB, close CGA-min A for safety with FWW. Level of Rawlins : minimum assist (75% patient effort), verbal cues required Assistive Device: 2 wheeled walker (FWW) Distance (feet): 10' x 3 Stairs NT Transfers Height of bed elevated to ease transition, cues for hand placement and posture Sit-Stand, Level of Rawlins: verbal cues required, minimum assist (75% patient effort) Stand-Sit, Level of Rawlins: contact guard assist, verbal cues required [id number]-[id number], Assistive Device: 2 wheeled walker (FWW) Safety Issues: balance decreased during turns, sequencing ability decreased, step length de creased, loses balance backward Impairments: coordination impaired, strength decreased, motor control impaired, sensation d ecreased Bed Mobility Pt most comfortable sidelying presently, LSO donned, needing cues and physical assist for s equence, 1P assist Assistive Device: HOB elevated, bed rails Sidelying to Sit, Level of Rawlins: minimum assist (75% patient effort), verbal cues r equired Sit to Sidelying, Level of Rawlins: minimum assist (75% patient effort), verbal cues r equired Safety Issues: decreased use of arms for pushing/pulling, decreased use of legs for bridgin g/pushing Impairments: coordination impaired, impaired balance, strength decreased, pain Balance Sitting balance is good Fair - standing balance, needing assist for safety Functional Endurance low ROM Except w/in spine precautions, grade C ROM Testing Results: no range of motion deficits identified Strength L LE Strength: QS, HS, DF 5/5, hip flexion 2+/5 R LE Strength: QS, HS 5/5, DF 3+/5 and hip flexion 2-/5 STG GOALS Bed Mobility Goal, Activity Type: supine to sit/sit to supine Rawlins Level: independent Assistive Device: none Time to Achieve: 3 days Goal Status: new Transfer Training Goal, Activity Type: sit to stand/stand to sit Rawlins Level: modified independence Assistive Device: 2 wheeled walker (FWW) Time to Achieve: 3 days Goal Status: new Gait Training Goal, Rawlins Level: modified independence Assistive Device: 2 wheeled walker (FWW) Distance: 150 Time to Achieve: 3 days Goal Status: new Stairs Goal, Rawlins Level: supervision required Assistive Device: 1 rail, cane (straight, single point) Number of Stairs: 12 Time to Achieve: 3 days Goal Status: new Additional Goal #1: Pt/ verbalize and pt demonstrates good understanding of grade C pos top precautions. Time to Achieve: 3 days Goal Status: new Physical Therapy will follow Piter Fleming daily until discharge from therapy or disc harged from the hospital. Identified Problems Needing Skilled Intervention: Impaired bed mobility, transfers, gait in stability, weakness, knowledge deficit and pain., aerobic capacity/endurance, gait, locomoti on, and balance Planned Interventions: bed mobility training, gait training, home exercise program, stair t raining, postural re-education, patient/family education, orthotic fitting/training, transfe r training Electronically signed by: Emani Tay, PT, 08/11/2016 9:57 lan of Care - Roma Cash RN - 08/11/2016 6:19 AM PSTProblem: Patient Care Overview (Adult) Goal: Care Team Goals & Evaluation PROBLEM-RELATED GOALS: 1. Pt s pain will be scored at 3 out of 10 by 08/13/16. 2. Sensation and muscle strengths to lower extremities will remain at pt s baseline or im prove by 08/14/16. 3. Pt will demonstrate lumbar precautions and ambulate with staff by 08/11/16. 4. Pt will tolerate a general textured diet by 08/11/16. 5. Pt will be free from s/s of infection through 08/15/16 6. Pt will have BM by 08/12/16. 7. Pt will void within 6 hours after having his vallejo removed on 08/11/16. STRATEGY TO ACHIEVE GOALS: 1. Assess pain q4h and PRN. Medicate PRN and re-evaluate pain 30-60 minutes after and re-me dicate PRN. Assist with repositioning for comfort. 2. Assess muscle strengths and CMS q4h and PRN. Notify MD if abnormalities are found. 3. Teach pt lumbar precautions and how to manage his C brace. Cue and assist as needed. Enc ourage ambulation to bathroom and in halls as appropriate. Use FWW and staff assist for safe ty. 4. Start pt on clear liquids when he arrives to the floor and advance to general texture as he tolerates. Medicate with anti-emetics PRN. 5. Assess dressing and vitals with temps q4h and PRN. Monitor lab work as ordered. Notify M D with concerns. 6. Assess bowel tones q shift and PRN. Encourage fluid intake and ambulation to help promot e BM. Monitor for bowel movements and if no BM by 08/12/16 use PRN bowel protocol. 7. If pt has no void within 6 hours after vallejo is removed, bladder scan pt and follow MD o rders to assist empting the bladder. Outcome: Improving Goal Evaluation: Assumed care about 2300. Damir is A&O x4, c/o 5-8/10 achy/crampy pain to bridget lower back. Medicated with prn hydrocod one 1 tab x1, morphine 2mg IV x2, and scheduled IV robaxin. CMS to BLE: states having chroni c numbness to toes and bottom of feet, no new numbness or tingling present, 2+ pedal pulses, good cap refill. RLE: moderate dorsiflex, strong plantarflex, 4/5 muscle strength. LLE: str jose dorsiflex/plantarflex, 4/5 muscle strength. C brace, band-aids to back CDI from what can be visualized. ROXANNE draining mod-large amount of sanguineous drainage. Afebrile, VSS. Electro nically signed by: Roma Jara RN 08/11/2016 6:19 lan of Care - Rajwinder angélicaRosalinda RN - 08/11/2016 12:13 AM PSTProblem: Patient Care Overview (Adult) Goal: Care Team Goals & Evaluation PROBLEM-RELATED GOALS: 1. Pt s pain will be scored at 3 out of 10 by 08/13/16. 2. Sensation and muscle strengths to lower extremities will remain at pt s baseline or im prove by 08/14/16. 3. Pt will demonstrate lumbar precautions and ambulate with staff by 08/11/16. 4. Pt will tolerate a general textured diet by 08/11/16. 5. Pt will be free from s/s of infection through 08/15/16 6. Pt will have BM by 08/12/16. 7. Pt will void within 6 hours after having his vallejo removed on 08/11/16. STRATEGY TO ACHIEVE GOALS: 1. Assess pain q4h and PRN. Medicate PRN and re-evaluate pain 30-60 minutes after and re-me dicate PRN. Assist with repositioning for comfort. 2. Assess muscle strengths and CMS q4h and PRN. Notify MD if abnormalities are found. 3. Teach pt lumbar precautions and how to manage his C brace. Cue and assist as needed. Enc ourage ambulation to bathroom and in halls as appropriate. Use FWW and staff assist for safe ty. 4. Start pt on clear liquids when he arrives to the floor and advance to general texture as he tolerates. Medicate with anti-emetics PRN. 5. Assess dressing and vitals with temps q4h and PRN. Monitor lab work as ordered. Notify M D with concerns. 6. Assess bowel tones q shift and PRN. Encourage fluid intake and ambulation to help promot e BM. Monitor for bowel movements and if no BM by 08/12/16 use PRN bowel protocol. 7. If pt has no void within 6 hours after vallejo is removed, bladder scan pt and follow MD george peraza to assist empting the bladder. Outcome: Improving Goal Evaluation: Pt arrived to the floor about 2029 this evening post lumbar fusion, grade C brace. Brace in place. He has 6 large band aids to his back and one to the left flank, all are CDI and with out complications noted. 2 ROXANNE site to the left side of his back, both are without hematoma o r complications noted, and both are draining sanguinous output. Bilateral legs are 4/5, left dorsal/plantar is moderate-strong, right dorsal is moderate-weak, right plantar is moderate -strong. Both legs and feet are still numb, pt states it is unchanged from pre-op. Pt dangl ed, stood, and walked from gurney to bed with staff assist. Lung sounds are clear but he berger s have sleep apnea and is requires O2 or his CPAP when he drifts off to sleep. HRR. Bowel to hugo are hypoactive, stated on clear liquids. IVF running at 100 ml/hr. Vallejo already in plac e when he arrived, there is an order to remove the vallejo in the morning. SCD on. is sle eping at bedside tonight. p Note - Chadwick Jorge MD - 08/10/2016 6:28 PM PSTFormatting of this note might be different from the orig inal. Operative Note Piter Fleming 71 y.o. male 1945 [id number] Proc. 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 Minimally invasive lumbar fusion via anterior and posterior approaches 2. Anterior lumbar interbody arthrodesis L2-3, L3-4, L4-5 3. Posterolateral lumbar arthrodesis L1, L2, L3, L4, L5, S1 4. Posterior spinal instrumentation L1-S1 with use of Precept 5. Placement of PEEK interbody spacer L2-3, L3-4, L4-5 6. L3 laminectomy, L3-4 facetectomy, L3 and L4 foraminotomy for decompression of L3 and L4 nerves and spinal canal 7. L5 laminectomy, L5-S1 facetectomy, L5 and S1 foraminotomy for decompression of L5 and S1 nerves 8. Microsurgical technique with use of operating microscope 9. Intraoperative fluoroscopy for spinal instrumentation Anesthesia General, Drs. Reed and Anais Surgeon Joshua Jorge MD - Primary Reading Coach TANNER Sanches-C EBL 434 Findings Scoliosis and loss of lordosis. L5-S1 autofusion. Severe L5 foraminal stenosis. Severe L3-4 stenosis. C bracing. Complications none Specimens * No specimens in log * Drains Drain/Device Site 08/10/16 1604 #1 Left medial lumbar spine (Active) Drain/Device Site 08/10/16 1605 #2 Left lower lumbar spine (Active) Operative details: After obtaining consent, the patient was taken to the operating room and placed under gener al anesthesia. He was then positioned in a lateral position with the left side up. He was co nnected to the neuromonitoring system and secured to the bed with tape. His face, neck, ches t and extremities positioned and padded appropriately. His flank was prepped and draped in standard fashion and a timeout was performed. All members of the surgical team agreed with the timeout. Fluoroscopy was then used to localize the levels of L2-L5 on lateral fluoroscopy, and a ski n incision was made in the left lateral flank approximately 4 cm in length. Subcutaneous tis sues were dissected with bovie and blunt dissection to the abdominal wall. The musculature w as divided with tonsils and then finger sweeping was used to develop the retroperitoneal spa ce. An initial dilator was then inserted onto the surface of the psoas at L4-5 and neuromoni toring was performed. The nerves were identified posteriorly at 14. Sequential dilatation an d monitor was performed and then a retractor was inserted over the dilators. The light [facility] es were connected and the area was inspected visually and with a ball tip neuro probe. No ne rves were identified. The anne was then inserted into the posterior blade, and the retractor was opened anteriorly. The disc at L4-5 was then removed in a piecemeal fashion by first incising it and then usin g Ahsan, broaches, curretes, and pituitary rongeurs. The endplates were prepared for arthrod esis. Trials were then inserted and a 20 degree by 6 by 22 by 60 mm spacer was determined to be the appropriate size. A PEEK spacer was prepared filling it with Pepperell/BMP and then t amping it into the interspace at L4-5. An awl was used to make an L4 facilities flight check pilot hole and then a 5.5 x 50 mm screw was inserted to hold the hyperlordotic L4-[address]. The retracto r was then removed obtaining hemostasis along the tract. An initial dilator was then inserted onto the surface of the psoas at L3-4 and neuromonitor ing was performed. The nerves were identified posteriorly at 20. Sequential dilatation and m onitor was performed and then a retractor was inserted over the dilators. The light sources were connected and the area was inspected visually and with a ball tip neuro probe. No nerve s were identified. The anne was then inserted into the posterior blade, and the retractor wa s opened anteriorly. The disc at L3-4 was then removed in similar, piecemeal fashion by first incising it and th en using Ahsan, broaches, curretes, and pituitary rongeurs. The endplates were prepared for arthrodesis. Trials were then inserted and a 15 degree by 10 by 22 by 60 mm spacer was deter mined to be the appropriate size. A PEEK spacer was prepared filling it with Pepperell/BMP and then tamping it into the interspace at L3-4. The retractor was then removed obtaining hemos tasis along the tract. An initial dilator was then inserted onto the surface of the psoas at L2-3 and neuromonitor ing was performed. The nerves were identified posteriorly at >20. Sequential dilatation and monitor was performed and then a retractor was inserted over the dilators. The light sources were connected and the area was inspected visually and with a ball tip neuro probe. No nerv es were identified. The anne was then inserted into the posterior blade, and the retractor w as opened anteriorly. The disc at L2-3 was then removed in similar, piecemeal fashion by first incising it and th en using Ahsan, broaches, curretes, and pituitary rongeurs. The endplates were prepared for arthrodesis. Trials were then inserted and a 15 degree by 8 by 22 by 55 mm spacer was determ ined to be the appropriate size. A PEEK spacer was prepared filling it with Pepperell/BMP and then tamping it into the interspace at L2-3. The retractor was then removed obtaining hemost asis along the tract. The fascia was then closed with 0 Vicryl sutures, followed by closure of the skin with two layers of 2-0 Quill-type sutures followed by closure of the skin with skin glue. The wound w as dressed with steristrips and a Band-Aid. This completed the anterior portion of the proc edure. He was then positioned in a prone position on the Beto axis table with his face, neck, c hest and extremities positioned and padded appropriately. His back was prepped and draped in standard fashion and a timeout was performed. All members of the surgical team agreed with the timeout. The posterior portion commenced. Fluoroscopy was then used to localize the level of L1-S1 on lateral fluoroscopy, and then 4 incisions were made approximately 4 cm in length cranially and 3.5 in length caudally, appr oximately 3.75 cm off the midline in a paramedian fashion on both sides. Subcutaneous tissue s were made hemostatic with Bovie cautery. Pedicle cannulas were then guided into pedicles at L1, L2, L3, L4, L5 and S1 using AP fluoroscopic guidance and lateral confirmation. There were no breaches to the canal or the pedicles. Bone marrow was aspirated in the pedicles a nd then the cannulas were removed after cannulating them with K-wires. The wires were secure d to the drape. Attention was then paid to the left side at L5-V2cparu a decompression was performed. A ME TRx tube was docked on the patient's lamina and facet complex and then a high-speed drill wa s used to drill through the lamina and the pars segment using the microscope for microsurgic al dissection. The drilling allowed for an en bloc removal of the L5 lamina and the L5 infe rior facet, which was harvested for planned arthrodesis. The S1 superior facet was then rem ruth from the foramen by disconnecting it from its base with a high-speed drill and removing the fragment with pituitary rongeur. The superior lamina of S1 was removed with a Kerrison to decompress with traversing root to its proximal foramen. The ligamentum was then taken down with a microhook and Kerrison rongeur, decompressing the underlying dura. The disc was bulging and an osteophyte had grown over it compressing both L5 and S1. The osteophyte and disc was removed from the canal with a kerrison and pituitary. Once the disk space could v isualized better, it was clear that there was autofusion of L5-S1. The disc space did not d istract or open further. With the bone and disc removed off the exiting L5 nerve and amalia sing S1 nerve, the primary goal had been achieved. Attention was then paid to the left symptomatic side at L3-4 where a decompression was perf ormed. A METRx tube was docked on the patient's lamina and facet complex and then a high-sp eed drill was used to drill through the lamina and the pars segment using the microscope for microsurgical dissection. The drilling allowed for an en bloc removal of the L3 lamina and the L3 inferior facet, which was harvested for planned arthrodesis. The bilateral medial a nd foraminal portions of the L4 superior facet was then removed from the foramen by disconne cting it from its base with a high-speed drill and removing the fragment with pituitary el eur. The superior lamina of L4 was removed with a Kerrison to decompress with traversing ro ot to its proximal foramen. The ligamentum was then taken down with a microhook and Kerriso n rongeur, decompressing the underlying dura. The severe stenosis had been alleviated, and the exiting L3 nerve and traversing L4 nerves were then felt to be free of severe compressio n as was the thecal sac. The tubular retractor was then removed here, obtaining hemostasis with FloSeal and bipolar cautery. Working between the wires starting on the patient's right side, a METRx tube was docked hardik n on the L1-2, L2-3, L3-4, L4-5, and L5-S1 lamina facet complexes. Bovie cautery was used t o expose the lamina of L1, L2, L3, L4, L5, and S1 and the L1-2, L2-3, L3-4, L4-5, and L5-S1 facets. High-speed drill was used to decorticate the exposed bone, and then morselized loca l bone autograft obtained from the laminectomies and Nya with bone marrow aspirate were packed in the posterolateral aspect of the spine along the decorticated bone. This complete d the posterolateral fusion from L1-S1. The previously placed wires were then used for placement of instrumentation. The pedicles were undertapped and then instrumented. 6.5 x 50 mm Precept screws were inserted at L1. 5. 5 x 50 mm screws were inserted at L2. 6.5 x 50 mm screws were inserted at L3. 6.5 x 55 mm screws were inserted at L4. 7.5 x 55 mm screws were inserted at L5. 8.5 x 55 mm screws wer e inserted at S1. The screw towers were aligned, and then a 160 mm lexie was passed through t he towers and successfully reduced down bilaterally. Set screws were inserted and then bennett l tightening of the set screws was performed. Then the towers and lexie passer were removed f ully. Final fluoroscopic images confirmed appropriate placement of instrumentation. 20 mL of exparel was infiltrated into the paraspinous muscles. Epidural blood was evacuated using a METRx tube, a drain was placed at each laminectomy sit e, and they were tunneled out the skin. The fascia was then closed bilaterally with 0 Vicryl sutures, followed by closure of the skin with two layers of 2-0 Quill-type sutures followed by closure of the skin with skin glue. The wounds were dressed with steristrips/Band-Aids. The drains were secured with a Band-Aid and Tegaderm each. All counts were reported as correct. The patient tolerated the procedure and was transferr ed to the recovery room in stable condition. Electronically signed by: Joshua Jorge MD 08/10/2016 18:25 [facility] rief Op Note - Mohinder Jorge MD - 08/10/2016 6:25 PM PSTFormatting of this note might be different from the origin al. Brief Operative Note Piter Fleming 71 y.o. male 1945 [id number] Proc. 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 Minimally invasive lumbar fusion via anterior and posterior approaches 2. Anterior lumbar interbody arthrodesis L2-3, L3-4, L4-5 3. Posterolateral lumbar arthrodesis L1, L2, L3, L4, L5, S1 4. Posterior spinal instrumentation L1-S1 with use of Precept 5. Placement of PEEK interbody spacer L2-3, L3-4, L4-5 6. L3 laminectomy, L3-4 facetectomy, L3 and L4 foraminotomy for decompression of L3 and L4 nerves and spinal canal 7. L5 laminectomy, L5-S1 facetectomy, L5 and S1 foraminotomy for decompression of L5 and S1 nerves 8. Microsurgical technique with use of operating microscope 9. Intraoperative fluoroscopy for spinal instrumentation Anesthesia General, Drs. Reed and Anais Surgeon Joshua Jorge MD - Primary Reading Coach TANNER Sanches-C EBL 434 Findings Scoliosis and loss of lordosis. L5-S1 autofusion. Severe L5 foraminal stenosis. Severe L3-4 stenosis. C bracing. Complications none Specimens * No specimens in log * Drains Drain/Device Site 08/10/16 1604 #1 Left medial lumbar spine (Active) Drain/Device Site 08/10/16 1605 #2 Left lower lumbar spine (Active) Electronically signed by: Joshua Jorge MD 08/10/2016 18:25 [facility] Joshua Jorge MD at 016 6:28 PM PSTPlan of Care - Kaylyn Rose, PT - 08/10/2016 4:09 PM PSTProblem: Ronda ent Care Overview (Adult) Goal: Care Team Goals & Evaluation PROBLEM-RELATED GOALS: STRATEGY TO ACHIEVE GOALS: RESTRAINT-RELATED GOALS: STRATEGIES TO ACHIEVE RESTRAINT GOALS: Missed Visit Patient Information Patient Name: Piter Fleming Date of : 1945 Age: 71 y.o. The patient was unable to be seen for today's scheduled visit due to still being in surgery . Plan: Eval Tues a.mStacy Electronically signed by: Kaylyn Rose, PT, 08/10/2016 16:09 lan of Care - Jones Robles Chaplain - 08/10/2016 11:29 AM PSTProblem: Patient Care Overview (Adult) Goal: Care Team Goals & Evaluation PROBLEM-RELATED GOALS: STRATEGY TO ACHIEVE GOALS: RESTRAINT-RELATED GOALS: STRATEGIES TO ACHIEVE RESTRAINT GOALS: Spiritual Care Piter Fleming is a 71 y.o. male who is admitted for Other secondary scoliosis, site u nspecified [M41.50] This is is my first visit with the patient. Piter Fleming was in good spirits, sit ting up in a chair at the time of the visit. His and son were present supporting at the time of my visit. His son came from [facility] to be with his parents. Spiritual Evaluation: Patient and family are Gnosticist and do look to their delonte for strength. Spiritual Interventions: Engaged in social and spiritual conversation; active listening and pastoral support was pro vided. Prayer was offered. Spiritual Outcomes: Patient and family were very social, welcomed prayer and expressed appreciation for the vis it. Spiritual Goals/Followup: Will see the patient as requested. If there are any other spiritual care issues that arise, please contact . [email or web address] crawford in this encounter Plan of Treatment + +------+--------+ + + | Name | Type | Priori | Associated Diagnoses | Order Schedule | | | | ty | | | + +------+--------+ + + | DME: Walker | DME | Routin | Gait abnormality | DME 1 Time for 1 | | | | e | | Occurrences starting | | | | | | 08/10/2016 until | | | | | | 08/10/2016 | + +------+--------+ + + documented as of this encounter Procedures + +--------+ + + + | Procedure Name | Priori | Date/Time | Associated Diagnosis | Comments | | | ty | | | | + +--------+ + + + | XR LUMBAR SPINE 2 OR | STAT | 08/10/2016 | | Results for this | | 3 VW | | 8:22 PM | | procedure are in the | | | | PST | | results section. | + +--------+ + + + | FL JOYCE STATS NO | Routin | 08/10/2016 | | Results for this | | CHARGE | e | 5:55 PM | | procedure are in the | | | | PST | | results section. | + +--------+ + + + | FUSION LUMBAR W/ | | 08/10/2016 | Other secondary | | | LATERAL APPROACH | | 12:21 PM | scoliosis, site | | | (XLIF) | | PST | unspecified | | + +--------+ + + + +---+--------+ | | Case | | | Notes | | | | | | Origin | | | al | | | Schedu | | | ler | | | Commen | | | ts/Not | | | es | | | Sent | | | Over | | | 07/13/ | | | 2015 @ | | | | | | 1315:N | | | EUROVI | | | TERESA, | | | C-ARM, | | | | | | DRILL, | | | | | | MICROS | | | COPE, | | | METRX, | | | XLIF, | | | | | | PRECEP | | | T, | | | TLIF | | | CAGES, | | | BMP, | | | GRAFTO | | | N, | | | ACR, | | | JACKSO | | | N AXIS | | | | | | FRAMEE | | | STIMAT | | | ED | | | TIME: | | | 5.5 | | | HOURSS | | | MAURICE: | | | LEFT | +---+--------+ | | | | | Specia | | | l | | | Needs | | | Brandon | | | (Nuvas | | | jonathan) - | | | ACR, | | | XLIF, | | | Precep | | | t/TLIF | | | | | | Cages, | | | | | | NeuroV | | | ision | +---+--------+ documented in this encounter Results XR Lumbar Spine 2 or 3 Vw (08/10/2016 8:22 PM PST) + + | Specimen | + + | | + + + + + | Narrative | Performed At | + + + | XR LUMBAR SPINE 2 OR 3 VW 08/10/2016 8:22 PM HISTORY: post op. | [facility] | | COMPARISON: Multiple priors. FINDINGS: There has been interval | | | placement of hardware for posterior fusion from L1 through S1 with | | | spacer hardware at L2-3 through L4-5. A left lateral screw is | | | observed of L4. The hardware are intact. There is mild right curvature | | | of the lumbar spine with improvement. Extensive spondylosis is | | | present. Bone mineralization is normal. Vertebral body height are | | | preserved with no evidence for compression fractures. Mild disc | | | narrowing are at L1-2 and L5-S1. Facet joints are intact. Visualized | | | ribs and pelvic osseous structures show no acute findings. Mild | | | atherosclerosis is seen. A posterior left drainage catheter is | | | observed. IMPRESSION - Interval posterior fusion from L1 through | | | S1. Dictated and Signed by: Chema Dee MD Electronically | | | signed: 08/11/2016 10:55 AM | | + + + + + | Procedure Note | + + | Benito, Rad Results In - 08/11/2016 10:58 AM PST XR LUMBAR SPINE 2 OR 3 VW 08/10/2016 | | 8:22 PMHISTORY: post op.COMPARISON: Multiple priors.FINDINGS:There has been interval | | placement of hardware for posterior fusion from V0xvlcfdp S1 with spacer hardware at | | L2-3 through L4-5. A left lateral screw isobserved of L4. The hardware are intact. There | | is mild right curvature of thelumbar spine with improvement. Extensive spondylosis is | | present. Bonemineralization is normal. Vertebral body height are preserved with no | | evidencefor compression fractures. Mild disc narrowing are at L1-2 and L5-S1. | | Facetjoints are intact. Visualized ribs and pelvic osseous structures show no | | acutefindings. Mild atherosclerosis is seen. A posterior left drainage catheter | | isobserved.IMPRESSION -Interval posterior fusion from L1 through S1.Dictated and Signed | | by: Chema Dee MD Electronically signed: 08/11/2016 10:55 AM | |mineralization is normal. Vertebral body height are preserved with no evidence | |for compression fractures. Mild disc narrowing are at L1-2 and L5-S1. Facet | |joints are intact. Visualized ribs and pelvic osseous structures show no acute | |findings. Mild atherosclerosis is seen. A posterior left drainage catheter is | |observed. | | | |IMPRESSION - | |Interval posterior fusion from L1 through S1. | | | |Dictated and Signed by: Chema Dee MD | | Electronically signed: 08/11/2016 10:55 AM | + + + +---------+ + + | Performing | Address | City/State/Zipcode | Phone Number | | Organization | | | | + +---------+ + + | [facility] | | | | + +---------+ + + [place] C-Arm Stats No Charge (08/10/2016 5:55 PM PST) + + | Specimen | + + | | + + + + + | Narrative | Performed At | + + + | No Radiologist interpretation, please see Chart Review. | [facility] | + + + + +---------+ + + | Performing | Address | City/State/Zipcode | Phone Number | | Organization | | | | + +---------+ + + | [facility] | | | | + +---------+ + + documented in this encounter Visit Diagnoses + + | Diagnosis | + + | Gait abnormality - Primary Abnormality of gait | + + | Depression Depressive disorder, not elsewhere classified | + + | Thyroid disease Unspecified disorder of thyroid | + + | Essential hypertension, benign | + + | Asthma, intrinsic Intrinsic asthma, unspecified | + + | Sleep apnea Unspecified sleep apnea | + + documented in this encounter Administered Medications + +--------+ +--------+------+------+ | Medication Order | MAR | Action | Dose | Rate | Site | | | Action | Date | | | | + +--------+ +--------+------+------+ | acetaminophen (TYLENOL) tablet | Given | 08/10/20 | 650 mg | | | | 650 mg 650 mg, Oral, EVERY 4 | | 16 7:07 | | | | | HOURS PRN, Pain, Starting Mon | | PM PST | | | | | 08/10/16 at 1821, Recovery/Phase | | | | | | | I | | | | | | + +--------+ +--------+------+------+ +---+---+ | | | +---+---+ + +---------+ +-----+-------+---+ | ceFAZolin (ANCEF, KEFZOL) 2 g | New Bag | 08/11/20 | 2 g | 100 | | | in sodium chloride 0.9% 50 mL | | 16 8:44 | | mL/hr | | | IVPB 2 g, Intravenous, | | AM PST | | | | | Administer over 30 Minutes, EVERY | | | | | | | 8 HOURS INTERVAL, First dose on | | | | | | | 08/11/16 at 0100, For 2 | | | | | | | doses, Start 8 hours after | | | | | | | previous dose. Last dose to be | | | | | | | given within 24 hours of surgery | | | | | | | end time., Post-op/Phase II, | | | | | | | Indications: Surgical Prophylaxis | | | | | | + +---------+ +-----+-------+---+ +---------+ +-----+-------+---+ | New Bag | 08/11/20 | 2 g | 100 | | | | 16 12:42 | | mL/hr | | | | AM PST | | | | +---------+ +-----+-------+---+ +---+---+ | | | +---+---+ + +-------+ +-------+---+---+ | cyclobenzaprine (FLEXERIL) | Given | 08/12/20 | 10 mg | | | | tablet 10 mg 10 mg, Oral, EVERY | | 16 3:58 | | | | | 8 HOURS PRN, Muscle spasms, | | PM PST | | | | | Starting 08/10/16 at 2036, | | | | | | | Use if methocarbamol ineffective | | | | | | | or not ordered., Post-op/Phase II | | | | | | + +-------+ +-------+---+---+ +-------+ +-------+---+---+ | Given | 08/12/20 | 10 mg | | | | | 16 8:25 | | | | | | AM PST | | | | +-------+ +-------+---+---+ | Given | 08/11/20 | 10 mg | | | | | 16 5:49 | | | | | | PM PST | | | | +-------+ +-------+---+---+ +---+---+ | | | +---+---+ + +-------+ +-------+---+---+ | cyclobenzaprine (FLEXERIL) | Given | 08/13/20 | 10 mg | | | | tablet 10 mg 10 mg, Oral, EVERY | | 16 8:44 | | | | | 6 HOURS PRN, Muscle spasms, | | AM PST | | | | | Starting 08/12/16 at 2015, | | | | | | | Use if methocarbamol ineffective | | | | | | | or not ordered., Post-op/Phase II | | | | | | + +-------+ +-------+---+---+ +-------+ +-------+---+---+ | Given | 08/13/20 | 10 mg | | | | | 16 12:27 | | | | | | AM PST | | | | +-------+ +-------+---+---+ +---+---+ | | | +---+---+ + +-------+ +--------+---+---+ | docusate sodium (COLACE) | Given | 08/12/20 | 100 mg | | | | capsule 100 mg 100 mg, Oral, 2 | | 16 8:04 | | | | | TIMES DAILY PRN, Constipation, | | PM PST | | | | | Starting 08/10/16 at 2036, | | | | | | | First line agent for | | | | | | | constipation, Post-op/Phase II | | | | | | + +-------+ +--------+---+---+ +-------+ +--------+---+---+ | Given | 08/12/20 | 100 mg | | | | | 16 8:25 | | | | | | AM PST | | | | +-------+ +--------+---+---+ | Given | 08/12/20 | 100 mg | | | | | 16 2:43 | | | | | | AM PST | | | | +-------+ +--------+---+---+ +---+---+ | | | +---+---+ + +-------+ +-------+---+---+ | escitalopram (LEXAPRO) tablet | Given | 08/13/20 | 20 mg | | | | 20 mg 20 mg, Oral, DAILY, First | | 16 8:43 | | | | | dose on Wed08/11/16 at 0900, | | AM PST | | | | | Post-op/Phase II | | | | | | + +-------+ +-------+---+---+ + + +-------+---+---+ | Given | 08/12/20 | 20 mg | | | | | 16 8:25 | | | | | | AM PST | | | | + + +-------+---+---+ | Given by Other | 08/11/20 | 20 mg | | | | | 16 8:45 | | | | | | AM PST | | | | + + +-------+---+---+ +---+---+ | | | +---+---+ + +-------+ +--------+---+---+ | fentaNYL (PF) injection 25-50 | Given | 08/10/20 | 25 mcg | | | | mcg 25-50 mcg, Intravenous, | | 16 7:54 | | | | | EVERY 5 MIN PRN, Pain, Starting | | PM PST | | | | | 08/10/16 at 1821, Maximum | | | | | | | total dose 200 mcg. PACU IV | | | | | | | Narcotic Priority: Only use | | | | | | | fentanyl for immediate post-op | | | | | | | pain (one dose) or breakthrough | | | | | | | pain when any other IV narcotics | | | | | | | ordered have been ineffective (if | | | | | | | ordered). If both morphine and | | | | | | | hydromorphone are ordered, use | | | | | | | morphine first, and use | | | | | | | hydromporphone if morphine | | | | | | | ineffective., Recovery/Phase I | | | | | | + +-------+ +--------+---+---+ +-------+ +--------+---+---+ | Given | 08/10/20 | 25 mcg | | | | | 16 7:36 | | | | | | PM PST | | | | +-------+ +--------+---+---+ | Given | 08/10/20 | 50 mcg | | | | | 16 6:28 | | | | | | PM PST | | | | +-------+ +--------+---+---+ +---+---+ | | | +---+---+ + +-------+ +------+---+---+ | finasteride (PROSCAR) tablet 5 | Given | 08/13/20 | 5 mg | | | | mg 5 mg, Oral, DAILY, First dose | | 16 8:44 | | | | | on Wed08/11/16 at 0900, | | AM PST | | | | | Reproductive Risk: Use | | | | | | | appropriate handling | | | | | | | precautions., Post-op/Phase II | | | | | | + +-------+ +------+---+---+ + + +------+---+---+ | Given | 08/12/20 | 5 mg | | | | | 16 8:25 | | | | | | AM PST | | | | + + +------+---+---+ | Given by Other | 08/11/20 | 5 mg | | | | | 16 8:45 | | | | | | AM PST | | | | + + +------+---+---+ +---+---+ | | | +---+---+ + +-------+ +--------+---+---+ | gabapentin (NEURONTIN) capsule | Given | 08/10/20 | 600 mg | | | | 600 mg 600 mg, Oral, 2 TIMES | | 16 7:07 | | | | | DAILY, First dose on Wed08/10/16 | | PM PST | | | | | at 2100, For 6 doses, | | | | | | | Recovery/Phase I | | | | | | + +-------+ +--------+---+---+ +---+---+ | | | +---+---+ + +-------+ +--------+---+---+ | gabapentin (NEURONTIN) capsule | Given | 08/12/20 | 600 mg | | | | 600 mg 600 mg, Oral, NIGHTLY, | | 16 8:04 | | | | | First dose on Wed08/10/16 at | | PM PST | | | | | 2100, Post-op/Phase II | | | | | | + +-------+ +--------+---+---+ +-------+ +--------+---+---+ | Given | 08/11/20 | 600 mg | | | | | 16 8:12 | | | | | | PM PST | | | | +-------+ +--------+---+---+ +---+---+ | | | +---+---+ + +-------+ +---------+---+---+ | HYDROcodone-acetaminophen | Given | 08/13/20 | 2 | | | | (NORCO) 10-325 mg per tablet 1-2 | | 16 1:14 | tablets | | | | tablet 1-2 tablet, Oral, EVERY 4 | | PM PST | | | | | HOURS PRN, Pain, Starting Mon | | | | | | | 08/10/16 at 2035, Post-op/Phase | | | | | | | II | | | | | | + +-------+ +---------+---+---+ +-------+ +---------+---+---+ | Given | 08/13/20 | 2 | | | | | 16 8:52 | tablets | | | | | AM PST | | | | +-------+ +---------+---+---+ | Given | 08/13/20 | 2 | | | | | 16 5:18 | tablets | | | | | AM PST | | | | +-------+ +---------+---+---+ +---+---+ | | | +---+---+ + +-------+ +--------+---+---+ | HYDROmorphone (DILAUDID) | Given | 08/10/20 | 0.5 mg | | | | injection 0.2-0.5 mg 0.2-0.5 mg, | | 16 7:19 | | | | | Intravenous, EVERY 5 MIN PRN, | | PM PST | | | | | Pain, Starting 08/10/16 at | | | | | | | 1821, Maximum total dose 4 mg. | | | | | | | PACU IV Narcotic Priority: Only | | | | | | | use fentanyl for immediate | | | | | | | post-op pain (one dose) or | | | | | | | breakthrough pain when any other | | | | | | | IV narcotics ordered have been | | | | | | | ineffective (if ordered). If | | | | | | | both morphine and hydromorphone | | | | | | | are ordered, use morphine first, | | | | | | | and use hydromporphone if | | | | | | | morphine ineffective., | | | | | | | Recovery/Phase I | | | | | | + +-------+ +--------+---+---+ + + +--------+---+---+ | Given | 08/10/20 | 0.5 mg | | | | | 16 7:13 | | | | | | PM PST | | | | + + +--------+---+---+ | Given by Other | 08/10/20 | 0.5 mg | | | | | 16 6:57 | | | | | | PM PST | | | | + + +--------+---+---+ +---+---+ | | | +---+---+ + +---------+ +---+-------+---+ | lactated ringers (LR) infusion | New Bag | 08/11/20 | | 100 | | | at 100 mL/hr, Intravenous, | | 16 12:36 | | mL/hr | | | CONTINUOUS, Starting 08/10/16 | | AM PST | | | | | at 1045 | | | | | | + +---------+ +---+-------+---+ +---------+ +---+---+---+ | New Bag | 08/10/20 | | | | | | 16 5:00 | | | | | | PM PST | | | | +---------+ +---+---+---+ | New Bag | 08/10/20 | | | | | | 16 3:53 | | | | | | PM PST | | | | +---------+ +---+---+---+ +---+---+ | | | +---+---+ + +-------+ +--------+---+---+ | lactulose liquid 30 mL 30 mL, | Given | 08/13/20 | 30 mLs | | | | Oral, DAILY PRN, Constipation, | | 16 6:50 | | | | | Starting 08/10/16 at 2035, If | | AM PST | | | | | docusate, senna, and | | | | | | | polyethylene glycol ineffective x | | | | | | | 24 hours or not ordered, | | | | | | | Post-op/Phase II | | | | | | + +-------+ +--------+---+---+ +---+---+ | | | +---+---+ + +-------+ +---------+---+---+ | levothyroxine (SYNTHROID, | Given | 08/13/20 | 175 mcg | | | | LEVOTHROID) tablet 175 mcg 175 | | 16 6:51 | | | | | mcg, Oral, DAILY BEFORE | | AM PST | | | | | BREAKFAST, First dose on Wed | | | | | | | 08/11/16 at 0700, Give before | | | | | | | breakfast., Post-op/Phase II | | | | | | + +-------+ +---------+---+---+ +-------+ +---------+---+---+ | Given | 08/12/20 | 175 mcg | | | | | 16 6:49 | | | | | | AM PST | | | | +-------+ +---------+---+---+ | Given | 08/11/20 | 175 mcg | | | | | 16 6:38 | | | | | | AM PST | | | | +-------+ +---------+---+---+ +---+---+ | | | +---+---+ + +-------+ +-------+---+---+ | lisinopril (PRINIVIL, ZESTRIL) | Given | 08/12/20 | 10 mg | | | | tablet 10 mg 10 mg, Oral, DAILY, | | 16 8:25 | | | | | First dose on Wed08/11/16 at | | AM PST | | | | | 0900, Post-op/Phase II | | | | | | + +-------+ +-------+---+---+ +-------+ +-------+---+---+ | Given | 08/11/20 | 10 mg | | | | | 16 8:45 | | | | | | AM PST | | | | +-------+ +-------+---+---+ +---+---+ | | | +---+---+ + +---------+ +--------+--------+---+ | methocarbamol (ROBAXIN) 750 mg | New Bag | 08/11/20 | 750 mg | 143.3 | | | in sodium chloride 0.9% 100 mL | | 16 5:51 | | mL/hr | | | IVPB 750 mg, Intravenous, | | AM PST | | | | | Administer over 45 Minutes, EVERY | | | | | | | 6 HOURS (4 times per day), First | | | | | | | dose on Wed08/10/16 at 1900, | | | | | | | For 3 doses, Post-op/Phase II | | | | | | + +---------+ +--------+--------+---+ +---------+ +--------+--------+---+ | New Bag | 08/10/20 | 750 mg | 143.3 | | | | 16 11:21 | | mL/hr | | | | PM PST | | | | +---------+ +--------+--------+---+ | New Bag | 08/10/20 | 750 mg | 143.3 | | | | 16 7:03 | | mL/hr | | | | PM PST | | | | +---------+ +--------+--------+---+ +---+---+ | | | +---+---+ + +-------+ +-------+---+---+ | morphine (MS CONTIN) ER tablet | Given | 08/13/20 | 30 mg | | | | 30 mg 30 mg, Oral, EVERY 12 | | 16 8:52 | | | | | HOURS (2 times per day), First | | AM PST | | | | | dose on 08/10/16 at 2100, Do | | | | | | | not cut or crush., Post-op/Phase | | | | | | | II | | | | | | + +-------+ +-------+---+---+ +-------+ +-------+---+---+ | Given | 08/12/20 | 30 mg | | | | | 16 8:04 | | | | | | PM PST | | | | +-------+ +-------+---+---+ | Given | 08/12/20 | 30 mg | | | | | 16 8:25 | | | | | | AM PST | | | | +-------+ +-------+---+---+ +---+---+ | | | +---+---+ + +-------+ +------+---+---+ | morphine injection 2-4 mg 2-4 | Given | 08/12/20 | 4 mg | | | | mg, Intravenous, EVERY 2 HOURS | | 16 2:38 | | | | | PRN, Pain, Starting 08/10/16 | | AM PST | | | | | at 6, If oral route not an | | | | | | | option. Slow IV push, not faster | | | | | | | than 2mg/minute. First dose must | | | | | | | be lowest dose, titrate to | | | | | | | effective dose by repeat of | | | | | | | lowest dose every 30 minutes prn | | | | | | | pain, may not exceed maximum dose | | | | | | | ordered per interval. Use | | | | | | | Pasero Sedation Scale., | | | | | | | Post-op/Phase II | | | | | | + +-------+ +------+---+---+ +-------+ +------+---+---+ | Given | 08/11/20 | 4 mg | | | | | 16 10:38 | | | | | | PM PST | | | | +-------+ +------+---+---+ | Given | 08/11/20 | 4 mg | | | | | 16 6:58 | | | | | | PM PST | | | | +-------+ +------+---+---+ +---+---+ | | | +---+---+ + +-------+ +------+---+---+ | polyethylene glycol (MIRALAX) | Given | 08/12/20 | 17 g | | | | powder 17 g 17 g, Oral, DAILY | | 16 8:05 | | | | | PRN, Constipation, Starting Mon | | PM PST | | | | | 08/10/16 at 2035, If docusate and | | | | | | | senna ineffective or not | | | | | | | ordered, Post-op/Phase II | | | | | | + +-------+ +------+---+---+ +---+---+ | | | +---+---+ + +-------+ +--------+---+---+ | senna (SENOKOT) tablet 8.6 mg | Given | 08/13/20 | 8.6 mg | | | | 8.6 mg, Oral, 2 TIMES DAILY PRN, | | 16 6:50 | | | | | Constipation, Starting Mon | | AM PST | | | | | 08/10/16 at 2035, If docusate | | | | | | | ineffective or not ordered, | | | | | | | Post-op/Phase II | | | | | | + +-------+ +--------+---+---+ +-------+ +--------+---+---+ | Given | 08/12/20 | 8.6 mg | | | | | 16 8:04 | | | | | | PM PST | | | | +-------+ +--------+---+---+ | Given | 08/12/20 | 8.6 mg | | | | | 16 8:25 | | | | | | AM PST | | | | +-------+ +--------+---+---+ +---+---+ | | | +---+---+ + +-------+ +--------+---+---+ | sertraline (ZOLOFT) tablet 100 | Given | 08/13/20 | 100 mg | | | | mg 100 mg, Oral, DAILY, First | | 16 8:43 | | | | | dose on Wed08/11/16 at 0900, | | AM PST | | | | | Post-op/Phase II | | | | | | + +-------+ +--------+---+---+ + + +--------+---+---+ | Given | 08/12/20 | 100 mg | | | | | 16 8:25 | | | | | | AM PST | | | | + + +--------+---+---+ | Given by Other | 08/11/20 | 100 mg | | | | | 16 8:45 | | | | | | AM PST | | | | + + +--------+---+---+ +---+---+ | | | +---+---+ + +-------+ +--------+---+---+ | tamsulosin (FLOMAX) capsule 0.4 | Given | 08/13/20 | 0.4 mg | | | | mg 0.4 mg, Oral, DAILY, First | | 16 8:44 | | | | | dose on Wed08/11/16 at 0900, Do | | AM PST | | | | | not open capsule., Post-op/Phase | | | | | | | II | | | | | | + +-------+ +--------+---+---+ + + +--------+---+---+ | Given | 08/12/20 | 0.4 mg | | | | | 16 8:24 | | | | | | AM PST | | | | + + +--------+---+---+ | Given by Other | 08/11/20 | 0.4 mg | | | | | 16 8:45 | | | | | | AM PST | | | | + + +--------+---+---+ +---+---+ | | | +---+---+ documented in this encounter
--- OUTSIDE RECORDS SUMMARY | ~2020-06-17 | XMS | Encounter Summary ---
Demographics + + + | Address | [address] | | | [place] [address] | + + + | Home Phone | | + + + | Preferred Language | Unknown | + + + | Marital Status | | + + + | Mormon Affiliation | 1013 | + + + | Race | White | + + + | Ethnic Group | Not or | + + + Author + + + | Author | [facility] | | | and [place] | + + + | Organization | [facility] | | | [...] [place] | | | | | [address] | | + + + + + | Mason Fleming | ECON | Unknown | | + + + + + Care Team Providers + +------+ + | Care Heavy Equipment Operator/Paver Name | Role | Phone | + +------+ + | Michael Grijalva | PCP | | | MD | | | + +------+ + Reason for Visit Diagnostic/Screening (Routine) +--------+--------+ + + + + | Status | Reason | Specialty | Diagnoses / | Referred By | Referred To | | | | | Procedures | Contact | Contact | +--------+--------+ + + + + | Closed | | Radiology | Procedures | Provider, | | | | | | MRI Lumbar | Historical, | | | | | | Spine w wo | MD Campbell | | | | | | Contrast | [address] | | | | | | | [place] | | | | | | | [address] | | +--------+--------+ + + + + Encounter Details +--------+ + + + + | Date | Type | Department | Care Team | Description | +--------+ + + + + | 07/23/ | Imaging | [facility] | Provider, | | | 2016 | Exam | [facility] | MD Shannan Dunbar | | | | | IMAGING [address] | [address] | | | | | [address] [place] | [place] [address] | | | | | [place] [address] | | | | | | [phone] | | | +--------+ + + + [...] + + + | MRI LUMBAR SPINE W | Routin | 07/19/2017 | | Results for this | | WO CONTRAST | e | 1:35 PM | | procedure are in the | | | | PST | | results section. | + +--------+ + + + documented in this encounter Results MRI Lumbar Spine w wo Contrast (07/19/2017 1:35 PM PST) + + | Specimen | + + | | + + + + + | Narrative | Performed At | + + + | External films | [facility] | | for comparison only - no result from [place]. | | + + + + +---------+ + + | Performing | Address | City/State/Zipcode | Phone Number | | Organization | | | | + +---------+ + + | [facility] | | | | + +---------+ + + documented in this encounter Visit Diagnoses Not on filedocumented in this encounter"
--- OUTSIDE RECORDS SUMMARY | ~2020-06-17 | XMS | Encounter Summary ---
Demographics + + + | Address | [address] | | | [place] [address] | + + + | Home Phone | | + + + | Preferred Language | Unknown | + + + | Marital Status | | + + + | Christianity Affiliation | 1013 | + + + | Race | White | + + + | Ethnic Group | Not or | + + + Author + + + | Author | [facility] | | | and [place] | + + + | Organization | [facility] | | | [...] [place] | | | | | [address] | | + + + + + | Mason Fleming | ECON | Unknown | | + + + + + Care Team Providers + +------+ + | Care High Tension Tester Name | Role | Phone | + [...] | Ischial | [place], | [address] | | | | | bursitis of | Peter T, MD | [place], | | | | | right side | [address] | [place] | | | | | Ischial | [place] | [address] | | | | | bursitis of | [place] | Phone: | | | | | left side | [address] | [phone] | | | | | Procedures | Phone: | Fax: | | | | | [place] Asp | [phone] | [phone] | | | | | and/or Inj | Fax: | | | | | | Major Joint | [phone] | | | | | | Left | | | +--------+--------+ + + + + Reason for Visit Service/Procedure +--------+--------+ + + + + | Status | Reason | Specialty | Diagnoses / | Referred By | Referred To | | | | | Procedures | Contact | Contact | +--------+--------+ + + + + | Closed | | Radiology | Diagnoses | | [facility] | | | | | Ischial | [place], | [address] | | | | | bursitis of | Peter T, MD | [place], | | | | | right side | [address] | [place] | | | | | Ischial | [place] | [address] | | | | | bursitis of | [place], [place] | Phone: | | | | | left side | [address] | [phone] | | | | | Procedures | Phone: | Fax: | | | | | [place] Asp | [phone] | [phone] | | | | | and/or Inj | Fax: | | | | | | Major Joint | [phone] | | | | | | Right | | | +--------+--------+ + + + + Encounter Details +--------+ + + + + | Date | Type | Department | Care Team | Description | +--------+ + + + + | 11/09/ | Hospital | [facility] | Peter Haney | Ischial bursitis of | | 2018 | Encounter | MED [facility] [address] | right side; Ischial | | | [address] [place] | [address] [place], [place] | bursitis of left | | | | [place] [address] | [address] | side | | | | [phone] | | | | | | | Equine Pharmacology Technician, [facility] | | | | | | [place] [...] +---------+ + + | Blood Pressure | 144/63 | 11/09/2017 1:14 PM | | | | | PDT [...] | 0 | 11/07/19 | | | (TRICE-CON) 10 mEq | as needed. | | [...] + | FL ASPIRATION | Routin | 11/09/2017 | Ischial bursitis | Results for this | | INJECTION MAJOR | e | 12:47 PM | of right side | procedure are in the | | JOINT RIGHT | | PDT | Ischial bursitis of | results section. | | | | | left side | | + +--------+ + + + | FL ASPIRATION | Routin | 11/09/2017 | Ischial bursitis | Results for this | | INJECTION MAJOR | e | 12:47 PM | of right side | procedure are in the | | JOINT LEFT | | PDT | Ischial bursitis of | results section. | | | | | left side | | + +--------+ + + + documented in this encounter Results FL Asp and/or Inj Major Joint Right (11/09/2017 12:47 PM PDT) + + | Specimen | + + | | + + + + + | Narrative | Performed At | + + + | 11/09/2017 | [facility] | | Ischial Tuberosity Bursa Injection Diagnosis: Ischial Tuberosity | | | Bursitis Piterconrad Fleming presents to the fluoroscopy suite for [...] + + | Performing | Address | City/State[facility] | Phone Number | | Organization | | | | + +---------+ + + | [facility] | | | | + +---------+ + + documented in this encounter Visit Diagnoses + + | Diagnosis | + + | Ischial bursitis of right side | + + | Ischial bursitis of left side | + + documented in this encounter Administered Medications + +--------+ +-------+------+------+ | Medication Order | MAR | Action | Dose | Rate | Site | | | Action | Date | | | | + +--------+ +-------+------+------+ | iohexol (OMNIPAQUE 300) 300 | Given | 11/09/ | 4 mLs | | | | mg/mL injection 4 mL 4 mL, | | 18 12:55 | | | | | Other, ONCE, 11/09/17 at 1315, | | PM PDT | | | | | For 1 dose | | | | | | + +--------+ +-------+------+------+ +---+---+ | | | +---+---+ + +-------+ +-------+---+---+ | lidocaine (PF) 1% injection 2 | Given | 11/10/19 | 2 mLs | | | | mL 2 mL, Other, ONCE, Tue | | 18 1:00 | | | | | 11/09/17 at 1315, For 1 dose, | | PM PDT | | | | | INTRAARTICULAR, | | | | | | + +-------+ +-------+---+---+ +---+---+ | | | +---+---+ + +-------+ +-------+---+---+ | lidocaine buffered 1.5% | Given | 11/10/19 | 6 mLs | | | | injection 6 mL 6 mL, Other, | | 18 12:50 | | | | | ONCE, 11/09/17 at 1315, For 1 | | PM PDT | | | | | dose | | | | | | + +-------+ +-------+---+---+ +---+---+ | | | +---+---+ + +-------+ +-------+---+---+ | triamcinolone acetonide | Given | 11/10/19 | 80 mg | | | | (KENALOG-40) 40 mg/mL injection | | 18 1:00 | | | | | 80 mg 80 mg, Intra-articular, | | PM PDT | | | | | ONCE, [facility] 11/09/17 at 1315, For 1 | | | | | | | dose, Shake well. Not for IV | | | | | | | use., | | | | | | + +-------+ +-------+---+---+ +---+---+ | | | +---+---+ documented in this encounter"
--- OUTSIDE RECORDS SUMMARY | ~2020-06-17 | XMS | Encounter Summary ---
Demographics + + + | Address | [address] | | | [place] [address] | + + + | Home Phone | | + + + | Preferred Language | Unknown | + + + | Marital Status | | + + + | Sikh Affiliation | 1013 | + + + | Race | White | + + + | Ethnic Group | Not or | + + + Author + + + | Author | [facility] | | | and [place] | + + + | Organization | [facility] | | | and [...] [place] | | | | | [address] | | + + + + + | Mason Fleming | ECON | Unknown | | + + + + + Care Team Providers + +------+ + | Care Painting Manager Name | Role | Phone | + +------+ + | Michael Grijalva | PCP | | | MD | | | + +------+ + Reason for Visit + + + | Reason | Comments | + + + | Back Pain | low back pain radiating into bilateral legs | + + + | Neck Pain | bilateral shoulder blade tightness | + + + Encounter Details +--------+---------+ + + + | Date | Type | Department | Care Team | Description | +--------+---------+ + + + | 09/25/ | Office | [facility] | Lyn, | Spinal stenosis of | | 2016 | Visit | PHYSIATRY [address] | [address] | lumbar - worst at | | | | [address] | [address] | the L2-L3 and L3-L4 | | | | [place] | [place] [address] | levels. This would | | | | [address] | [phone] | be classified as | | | | [phone] | | severe. (Primary | | | | | | Dx); Lumbar | | | | | | radiculopathy; | | | | | | Degenerative [...] | | | | | unspecified | +--------+---------+ + + + Social History [...] + + + | Blood Pressure | 120/63 | 09/25/2015 9:23 AM | | | | | PST | | + + + + + | Pulse | 58 | 09/25/2015 9:23 AM | | | | | PST [...] Weight | 115.7 kg (255 lb) | 09/25/2015 9:23 AM | | | | | PST | | + + + + + | Height | 185.4 cm (6' 1") | 09/25/2015 9:23 AM | | | | | PST | | + + + + + | Body Mass Index | 33.64 | 09/25/2015 9:23 AM | | | | | PST | | + + + + + documented in this encounter Patient Instructions Patient Instructions Aleja Nicholson PA-C - 09/25/2015 9:45 AM PST Follow-up at the hospital thirty minutes before [...] of the procedure you must provide a lokie driver to take you home. For all procedur es it is recommended that someone else drive you home. Spinal Stenosis: Stenosis refers to the narrowing of the spinal cord. This most often occurs with age and generative changes of the spine. Narrowing of the spinal cord causes compression and inflam mation of nerves in the lower back and can cause numbness, pain, and weakness in the back, b uttocks and legs. You may notice you have more pain with standing and walking. It feels be tter to walk more bent over at the waist, while pushing a grocery cart or walker. You get r elief with sitting down. Treatment includes pain medicine, gabapentin, transforaminal epidu ral steroid injections to help reduce swelling, physical therapy and surgery. Steroids are a very strong anti-inflammatory, this helps reduce pain by reducing swelling. Complications of steroids are bleeding, infection, and an increase of blood sugars if you are diabetic. penitentiary risk can lead to osteoporosis which is why we limited the number of injections to 3 times per year. Epidural injections target the spinal stenosis by putting the steroid around the nerves that come out of the spine with hopes the steroid gets into t he region of the stenosis. The procedure is about 20 minutes long. You will lie on your ry k while x-rays are taken. Once the region is marked, it is numbed and then injected with st eroids. documented in this encounter Progress Notes Aleja Nicholson PA-C - 09/25/2015 9:36 AM PSTFormatting of this note might be differe nt from the original. CHIEF COMPLAINT: Chief Complaint Patient presents with Back Pain low back pain radiating into bilateral legs Neck Pain bilateral shoulder blade tightness HISTORY OF PRESENT ILLNESS: The patient is a 70 y.o. male being seen today in follow-up for complaints of low back pain . The patient has been seen for this complaint in the past, with initial visit started by Dr. Haney. Previously it was recommended that he receive bilateral L3/L4 TFESI for lum bar radiculopathy, spinal stenosis. His last injection was 03/07/2015. He reports that the anson atment was 100% effective for 3 months, since this time he has undergo a right shoulder surg tavares for tearing 4 of the rotator cuff muscles. He rates the pain as 5 on scale of 1-10. He describes the pain as aching or soreness to th e low back area. His symptoms worsen with prolonged standing and walking. His symptoms improve with sitting and with leaning forward. He cannot extend his back due to pain. The patient does describe numbness of the bilateral anterior thighs with increased severity of the back pain. He does not report weakness of the bilateral lower extermities. The praveen leigh does not report recent falls or trauma. He does not have bowel and bladder dysfunctio n. He does not have saddle anesthesia. Treatments for these complaints have included physical therapy, hydrocodone, prior injectio ns performed by Dr. Haney. He has seen Dr. Jorge in Neurosurgery for this issue, but has opted out of surgery at this time. He is planning on getting a right total knee replacement soon. Patient's medications, allergies, past medical, surgical, social and family histories were reviewed and updated as appropriate. CURRENT MEDICATIONS: Current Outpatient Prescriptions Medication Sig Dispense Refill acetaminophen (TYLENOL) 500 mg tablet Take 500 mg by mouth nightly. BETAMETHASONE Take by mouth as needed. citalopram (CELEXA) 40 mg tablet Take 40 mg by mouth Daily. DHEA 50 MG TABS Take 100 mg by mouth. Ephedrine-Guaifenesin (PRIMATENE ASTHMA) 12.5-200 MG TABS 2 to 3 tablets daily ergocalciferol (VITAMIN D-2) 50,000 units capsule Take 50,000 Units by mouth Once a wee k. finasteride (PROSCAR) 5 mg tablet Take 5 mg by mouth Daily. fluocinonide (LIDEX) 0.05 % ointment two times a day gabapentin (NEURONTIN) 300 mg capsule TAKE TWO CAPSULES BY MOUTH AT NIGHT FOR NEUROPATH IC PAIN, LUMBAR RADICULOPATHY, AND BACK PAIN. 90 capsule 11 iron polysaccharides (NU-IRON) 150 MG capsule Take 150 mg by mouth Daily. LevOCARNitine L-Tartrate (L-CARNITINE) 500 MG CAPS Take 500 mg by mouth Daily. levothyroxine (LEVOTHROID) 200 mcg tablet Take 175 mcg by mouth Daily. lisinopril (PRINIVIL, ZESTRIL) 10 mg tablet Take 10 mg by mouth Daily. multivitamin (THERAGRAN) per tablet Take 1 tablet by mouth daily oxyCODONE (ROXICODONE) 5 mg tablet Take 5 mg by mouth every 4 hours as needed for Pain. primidone (MYSOLINE) 50 mg tablet Take 4 by mouth daily at bedtime for 5 days then incr ease to 5 by mouth daily at bedtime for tremors propranolol (INDERAL) 40 mg tablet Take 40 mg by mouth Daily. (Patient taking different ly: Take 10 mg by mouth Daily.) tamsulosin (FLOMAX) 0.4 mg CAPS Take 0.4 mg by mouth Daily. vitamin B-12 (CYANOCOBALAMIN) 1000 MCG tablet Take 1,000 mcg by mouth Daily. No current facility-administered medications for this visit. 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 EYES: [...] rashes. HEMATOLOGIC/LYMPHATIC: No abnormal bleeding PHYSICAL EXAMINATION: Filed Vitals: 09/25/15 0923 BP: 120/63 Pulse: 58 PainSc: 5 PainLoc: Back Body mass index is 33.65 kg/(m^2). GENERAL: The patient is well developed and well nourished. He does not appear uncomfortabl e when seated. HEENT: HEAD/FACE: EYES: EARS: NASOPHARNYX: OROPHARNYX: Normocephalic and atraumatic. There are no areas of recent trauma. Normal sclerae without icterus. No drainage or tenderness. Clear without drainage. Clear without erythema. SKIN Limited skin exam shows no significant rashes or lesions. There are not scars in the lumbar region. CHEST: The patient is in no acute respiratory distress with unlabored respirations. HEART: There is not lower extremity edema. ABDOMEN: The patient is obese. NEUROLOGIC: The patient is awake, alert, and oriented to time, place, person. He follows simple and complex commands. His speech is fluent. He comprehends speech well. He has no apparent deficits with short or halfway memory. He has appropriate fund of knowledge Cranial nerves 2-12 appear grossly intact. Sensory exam does show diminished sensation to light touch in the bilateral lower extremit ies equally. REFLEX: RIGHT LEFT PATELLAR 0 0 ACHILLES 0 0 MUSCULOSKELETAL There is no tenderness in the midline of the cervical or thoracic spine. T here is no major palpable deformity of the spine. Straight leg raise and slump-sit are negative. Memo's maneuver and impingement testing were negative for any groin pain. There was no tenderness to palpation over the greater tr ochanters or sacral sulci. The patient localized the majority of the pain to the L3/4 regio n. Lumbar facet loading was uncomfortable due to stenosis. Strength testing showed 5/5 str ength throughout the lower extremities. The patient was able to heel and toe walk without d ifficulty. There was no redness, effusion, warmth or joint line tenderness in the knees or ankles. RADIOGRAPHIC REVIEW: The patient's imaging was reviewed in detail with the patient today during the visit. MRI from 12/14/2013 show DDD throughout, spinal stenosis L2/3 and L3/4, facet arthritis ASSESSMENT: 1. Spinal stenosis of lumbar - worst at the L2-L3 and L3-L4 levels. This would be classifi ed as severe. 2. Lumbar radiculopathy 3. Degenerative disc disease lumbar spine - he has degenerative changes at every level from L2 to S1. 4. Midline low back pain with sciatica, sciatica laterality unspecified PLAN: 1. The patient has tried conservative therapy in the past and has failed in symptoms impro vement. He has been receiving bilateral epidurals by Dr. Haney targeting the level jus t below the stenosis L3/L4. I do feel he would be a good candidate for this injection and I have ordered it for the near future. 2. Medications have been reviewed at today's visit with no changes made at this time. He i s instructed to continue taking the gabapentin. 3. The patient is to follow up PRN pain. I did inform him we can do a same day injection the next time he comes in. ELECTRONICALLY SIGNED BY: Aleja Nicholson PA-C, 09/25/2015 CC: Dr. Grijalva documented in t his encounter Plan of Treatment Not on filedocumented as of this encounter Results FL SHIRLEY Lumbar Transforaminal (09/25/2015 2:53 PM PST) + + | Specimen | + + | | + + + + + | Narrative | Performed At | + + + | 09/25/2015 Bilateral Transforaminal Epidural Steroid Injections | [facility] | | Diagnosis: Lumbar radiculopathy ICD-10 Code M54.16 Piter | [facility] | | Damir Fleming presents to the fluoroscopy suite for [facility] | | fluoroscopically-guided bilateral L3-L4 transforaminal epidural [...] + + | [facility] [facility] | [address] | [place], [place] | [phone] | | [facility] | | [address] | | | - IMAGING | | | | + + + + + documented in this encounter Visit Diagnoses + + | Diagnosis | + + | Spinal stenosis of lumbar - worst at the L2-L3 and L3-L4 levels. This would be | | classified as severe. - Primary Spinal stenosis, lumbar region, without neurogenic | | claudication | + + | Lumbar radiculopathy [...]
--- OUTSIDE RECORDS SUMMARY | ~2020-06-17 | XMS | Encounter Summary ---
Demographics + + + | Address | [address] | | | [place] [address] | + + + | Home Phone | | + + + | Preferred Language | Unknown | + + + | Marital Status | | + + + | Taoism Affiliation | 1013 | + + + | Race | White | + + + | Ethnic Group | Not or | + + + Author + + + | Author | [facility] | | | and [place] | [...] [place] | | | | | [address] | | + + + + + | Mason Fleming | ECON | Unknown | | + + + + + Care Team Providers + +------+ + | Care Sales Office Assistant Name | Role | Phone | + +------+ + | Michael Grijalva | PCP | | | MD | | | + +------+ + Encounter Details +--------+ + + + + | Date | Type | Department | Care Team | Description | +--------+ + + + + | 02/04/ | Orders Only | [facility] | Joshua Jorge MD | Lumbar radiculopathy | | 2016 | | NEUROSURGERY [address] | [address] | (Primary Dx) | | | | [address] | [place] [address] | | | | | [place] | [phone] | | | | | [address] | | | | | | [phone] | | | +--------+ + + + [...] of this encounter Results XR Lumbar Spine 4 + Vw (05/11/2016 12:17 PM PDT) + + | Specimen | + + | | + + + + + | Narrative | Performed At | + + + | EXAM:XR LUMBAR SPINE 4 + VW CLINICAL HISTORY: Back pain | [facility] | | COMPARISON: 03/09/2014. FINDINGS: 4 views of the lumbar spine. | [facility] | | There are 5 nonrib-bearing lumbar-type [...] [address] | [place] | [phone] | | [facility] | | [address] | | | - IMAGING | | | | + + + + + documented in this encounter Visit Diagnoses + + | Diagnosis | + + | Lumbar radiculopathy - Primary Thoracic or lumbosacral neuritis or radiculitis, | | unspecified | + + documented in this encounter"
--- OUTSIDE RECORDS SUMMARY | ~2020-06-17 | XMS | Encounter Summary ---
Demographics + + + | Address | [address] | | | [place] [address] | + + + | Home Phone | | + + + | Preferred Language | Unknown | + + + | Marital Status | | + + + | Hindu Affiliation | CAT | + + + | Race | Unknown | + + + | Ethnic Group | Other Race | + + + Author + + + | Author | [facility] | + + + | Organization | [facility] | + + + | Address | Unknown | + + + | Phone | Unavailable | + + + Support +---------+ +---------+ + | Name | Relationship | Address | Phone | +---------+ +---------+ + | Unk Unk | ECON | Unknown | Unavailable | +---------+ +---------+ + Care Team Providers + +------+ + | Care Skin Specialist Name | Role | Phone | + +------+ + PCP | Unavailable | + +------+ + Encounter Details +--------+ + + + + | Date | Type | Department | Care Team | Description | +--------+ + + + + | 06/04/ | Hospital | Dermatopathology | | | | 2016 | Encounter | [address] | | | | | | Mailcode: [id number] | | | | | | [facility] | | | | | | and Healing, | | | | | | [place] [address], [facility] | | | | | | [place], [place] | | | | | | [address] | | | | | | [phone] | | | +--------+ + + + [...] + + + +---------+ + + | cyanocobalamin | Take 1,000 mcg by | | 0 | 05/13/20 | | | 1,000 mcg oral | mouth. | | | 12 | | | tablet | | | | | | + + + +---------+ + + | fluocinonide 0.05 | two times a day | | 0 | 05/13/20 | | | % topical ointment | | | | 12 | | + + + +---------+ + + | multivitamin oral | Take 1 tablet by | | 0 | 05/13/20 | | | capsule | mouth daily | | | 12 | | + + + +---------+ + + | primidone 50 mg | Take 250 mg by mouth | | 0 | 09/24/19 | | | oral tablet | once daily at | | | 11 | | | | bedtime. | | | | | + + + +---------+ + + | tamsulosin 0.4 mg | Take 0.4 mg by | | 0 | 05/13/20 | | | oral capsule | mouth. | | | 12 | | + + + +---------+ + + documented as of this encounter Plan of Treatment Not on filedocumented as of this encounter Procedures + +--------+ + + + | Procedure Name | Priori | Date/Time | Associated Diagnosis | Comments | | | ty | | | | + +--------+ + + + | IMMUNOFLUORESCENCE | Routin | 06/04/2016 | | Results for this | | STUDY | e | | | procedure are in the | | | | | | results section. | + +--------+ + + + | DERM PATHOLOGY | Routin | 06/04/2016 | Other specified | Results for this | | | e | | dermatitis | procedure are in the | | | | | | results section. | + +--------+ + + + documented in this encounter Results IMMUNOFLUORESCENCE STUDY (06/04/2016) + + + + + + | Component | Value | Ref Range | Performed | Pathologist | | | | | At | Signature | + + + + + + | IMMUNOFLUOR | SOURCE OF SPECIMEN:A Lt. | | [facility] | | | ESCENCE | middle finger, punch, | | DERMATOPATH | | | STUDY | DIF CLINICAL | | OLOGY | | | | INFORMATION:On May | | | | | | 2015, a punch biopsy | | | | | | was taken from | | | | | | perilesional skin of | | | | | | theleft middle finger | | | | | | for direct | | | | | | immunofluorescence | | | | | | studies from a | | | | | | patientwith 10-12mo. | | | | | | history of periodic | | | | | | vesicles over their | | | | | | fingers and hands toR/O | | | | | | Eczema vs | | | | | | Vesiculobullous Disorder | | | | | | or Infection. | | | | | | TISSUE PROCESSING:On | | | | | | June 05, 2016, a 3 x | | | | | | 5mm zhu cylinder of | | | | | | tissue was received in | | | | | | directimmunofluorescence | | | | | | holding solution. | | | | | | After washing, the | | | | | | tissue was frozenin OCT, | | | | | | and cryosectioned onto | | | | | | five separate slides. | | | | | | The sections werethen | | | | | | stained with fluorescein | | | | | | isothiocyanate | | | | | | conjugated anti-human | | | | | | IgG,IgA, IgM, C3, and | | | | | | fibrinogen, | | | | | | respectively. | | | | | | FINDINGS:There is | | | | | | moderately intense | | | | | | granular deposition of | | | | | | IgA, IgM, and | | | | | | fibrinogenfound along | | | | | | the basement membrane | | | | | | zone and within dermal | | | | | | papillary tips.There is | | | | | | no specific deposition | | | | | | of IgG or C3 identified | | | | | | in these sections. 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 | | | | | | Testing was performed | | | | | | with an appropriate | | | | | | positive and negative | | | | | | control foreach | | | | | | immunoreactant.M:[id number] | | | | | | / My | | | | | | electronic signature | | | | | | indicates that I have | | | | | | personally reviewed | | | | | | alldiagnostic slides, | | | | | | the gross and/or | | | | | | microscopic portion of | | | | | | thisreport and | | | | | | formulated the final | | | | | | diagnosis. | | | | | | Rendering Diagnostician: | | | | | | Candy Queen | | | | | | DavePathologistElectroni | | | | | | wilmer Signed 06/15/2016 | | | | | | 4:45PM | | | | + + + [...] | + + + + + | [facility] | Mailcode [address] | [place] [address] | | | DERMATOPATHOLOGY | [address] | | | + + + + + | [facility] | Mailcode [address] | [place] [address] | | | DERMATOPATHOLOGY | [address] | | | + + + + + DERM PATHOLOGY (06/04/2016) + + + + + + | Component | Value | Ref Range | Performed | Pathologist | | | | | At | Signature | + + + + + + | DERMATOPATH | SOURCE OF SPECIMEN:A Lt. | | [facility] | | | OLOGY(WET | middle finger, 3 mm | | DERMATOPATH | | | MNT) | punch biopsy | | OLOGY | | | | CLINICAL | | | | | | DESCRIPTION:10-20 mo hx. | | | | | | of periodic vesicles | | | | | | over fingers and hand | | | | | | (non-palmar,pruritic); | | | | | | r/o eczema vs vesiculo | | | | | | bullous disorders vs | | | | | | infection. GROSS | | | | | | DESCRIPTION:Received in | | | | | | formalin is a specimen | | | | | | labeled Fleming, | | | | | | Piter:A: Specimen is | | | | | | labeled "L middle | | | | | | finger" and consists of | | | | | | a 3mm punch oftan-white | | | | | | skin, cut to a depth of | | | | | | 5mm. The surgical margin | | | | | | is inked black;the | | | | | | tissue is entirely | | | | | | submitted in cassette | | | | | | A1. MICROSCOPIC | | | | | | DESCRIPTION:There is a | | | | | | superficial and mid, | | | | | | perivascular and | | | | | | interstitial, | | | | | | mixedinflammatory cell | | | | | | infiltrate, including | | | | | | multiple neutrophils, | | | | | | scatteredeosinophils, | | | | | | and lymphocytes with | | | | | | extravasated | | | | | | erythrocytes. There | | | | | | arefocal collections of | | | | | | neutrophils with | | | | | | karyorrhectic material | | | | | | in the dermalpapilla and | | | | | | subepidermal cleft | | | | | | formation. No | | | | | | significant bacteria | | | | | | (Gram) orfungi (PAS) are | | | | | | identified with special | | | | | | stains. 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 NOTE: | | | | | | Focal neutrophilic | | | | | | papillary microabscess | | | | | | formation is suspicious | | | | | | forDERMATITIS | | | | | | HERPETIFORMIS, and other | | | | | | SUBEPIDERMAL BULLOUS | | | | | | DERMATOSES such asLINEAR | | | | | | IgA DERMATOSIS and | | | | | | BULLOUS PEMPHIGOID | | | | | | remain in the | | | | | | histologicdifferential | | | | | | diagnosis. Less likely | | | | | | considerations are | | | | | | BULLOUS ARTHROPODBITE | | | | | | REACTION, BULLOUS DRUG | | | | | | ERUPTION, and BULLOUS | | | | | | ECZEMATOUS | | | | | | process(allergic contact | | | | | | dermatitis). | | | | | | Correlation with | | | | | | immunofluorescence | | | | | | orserologic studies is | | | | | | recommended. My | | | | | | electronic signature | | | | | | indicates that I have | | | | | | personally reviewed | | | | | | alldiagnostic slides, | | | | | | the gross and/or | | | | | | microscopic portion of | | | | | | thisreport and | | | | | | formulated the final | | | | | | diagnosis. | | | | | | Rendering Diagnostician: | | | | | | Zina Askew | | | | | | Allan | | | | | | Roland | | | | | | samara Signed 06/09/2016 | | | | | | 8:39AM | | | | + + + [...] | + + + + + | [facility] | Mailcode [address] | [place] [address] | | | DERMATOPATHOLOGY | [address] | | | + + + + + | [facility] | [address]code [address] | [place] [address] | | | DERMATOPATHOLOGY | [address] | | | + + + + + documented in this encounter Visit Diagnoses + + | Diagnosis | + + | Other specified dermatitis | + + documented in this encounter
--- OUTSIDE RECORDS SUMMARY | ~2020-06-17 | XMS | Encounter Summary ---
Demographics + + + | Address | [address] | | | [place] [address] | + + + | Home Phone | | + + + | Preferred Language | Unknown | + + + | Marital Status | | + + + | Spiritism Affiliation | 1013 | + + + | Race | White | + + + | Ethnic Group | Not or | + + + Author + + + | Author | [facility] | | | and [...] [place] | | | | | [address] | | + + + + + | Mason Fleming | ECON | Unknown | | + + + + + Care Team Providers + +------+ + | Care Sheep Killer Name | Role | Phone | + +------+ + | Michael Grijalva | PCP | | | MD | | | + +------+ + Encounter Details +--------+ + + + + | Date | Type | Department | Care Team | Description | +--------+ + + + + | 05/11/ | Hospital | [facility] | Yarelisdanowicz, | Lumbar | | 2016 | Encounter | MED CTR XRAY [address] | MICHELLE [address]on [address] | radiculopathy; | | | | [place] | [facility] [address] | Spinal stenosis of | | | | [place] [address] | [place] [address] | lumbar - worst at | | | | [phone] | [phone] | the L2-L3 and L3-L4 | | | | | | levels. 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 | | Damir Fleming presents to the fluoroscopy suite for [facility] | | fluoroscopically-guided bilateral L3-L4 transforaminal [...] [address] 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 | | | | | | | Not for IV use., | | | | | | + +--------+ +-------+------+------+ +---+---+ | | | +---+---+ + +-------+ +-------+---+---+ | iohexol (OMNIPAQUE 300) 300 | Given | 09/12/20 | 4 mLs | | | | mg/mL injection 4 mL 4 mL, | | 16 11:55 | | | | | Other, ONCE, 05/11/16 at 1215, | | AM PDT | | | | | For 1 dose | | | | | | + +-------+ +-------+---+---+ +---+---+ | | | +---+---+ + +-------+ +-------+---+---+ | lidocaine (PF) 1% injection 2 | Given | 05/11/20 | 2 mLs | | | | mL 2 mL, Other, ONCE, Mon | | 16 12:00 | | | | | 05/11/16 at 1215, For 1 dose | | PM PDT | | | | + +-------+ +-------+---+---+ +---+---+ | | | +---+---+ + +-------+ +--------+---+---+ | lidocaine buffered 1% injection | Given | 05/11/20 | 10 mLs | | | | 10 mL 10 mL, Other, ONCE, Mon | | 16 11:50 | | | | | 05/11/16 at 1215, For 1 dose | | AM PDT | | | | + +-------+ +--------+---+---+ +---+---+ | | | +---+---+ documented in this encounter"
--- OUTSIDE RECORDS SUMMARY | ~2020-06-17 | XMS | Encounter Summary ---
Demographics + + + | Address | [address] | | | [place] [address] | + + + | Home Phone [...] + | Author | [facility] | | | and [place] [...] [place] | | | | | [address] | | + + + + + | Mason Fleming | ECON | Unknown | | + + + + + Care Team Providers + +------+ + | Care Dining Room Tables Set Up Attendant Name | Role | Phone | + +------+ + PCP | Unavailable | + +------+ + Encounter Details +--------+ + + + + | Date | Type | Department | Care Team | Description | +--------+ + + + + | 05/23/ | Emergency | [facility] | | Ureterolithiasis | | 2011 | | [facility] | | | | | | [address] | | | | | | [place], [place] | | | | | | [address] | | | | | | [phone] | | | +--------+ + + + [...] 1 tablet by | | 0 | 09/14/20 | | | (THERAGRAN) per | mouth [...] 0 | 05/13/20 | | | (D3-50) 42427 UNITS | week. | | | 12 | 5 | | CAPS | | | | | | + + + +---------+ + + | Cholecalciferol | Take one capsule by | | 0 | 05/13/20 | | | (D3-50) 00095 UNITS | mouth twice weekly | | [...] + + documented as of this encounter ED Notes Fanta Farmer RN - 05/23/2012 11:14 AM PDTFormatting of this note might be different fr om the original. ED Notes by Fanta Farmer RN at 05/23/121113 Author: Fanta Farmer RN Service: (none) Author Type: Registered Nurse Filed: 05/23/121114 Date of Service: 05/23/121113 Status: Signed Appliance Repair Technician: Fanta Farmer RN (Registered Nurse) Reviewed discharge instructions and all questions answered. Home with script, strainers and instructions. Fanta Franco R N - 05/23/2012 9:58 AM PDT ED Notes by Fanta Farmer RN at 05/23/12957 Author: Fanta Farmer RN Service: (none) Author Type: Registered Nurse Filed: 05/23/12957 Date of Service: 05/23/12957 Status: Signed Appliance Repair Technician: Fanta Farmer RN (Registered Nurse) Pt returned from CT. Pt attempting to provide urine sample. anta Farmer R N - 05/23/2012 9:39 AM PDT ED Notes by Fanta Farmer RN at 05/23/12938 Author: Fanta Farmer RN Service: (none) Author Type: Registered Nurse Filed: 05/23/12939 Date of Service: 05/23/12938 Status: Signed Appliance Repair Technician: Fanta Farmer RN (Registered Nurse) Fluids hung and patient to CT. anta Farmer R N - 05/23/2012 9:29 AM PDT ED Notes by Fanta Farmer RN at 05/23/12928 Author: Fanta Farmer RN Service: (none) Author Type: Registered Nurse Filed: 05/23/12929 Date of Service: 05/23/12928 Status: Signed Appliance Repair Technician: Fanta Farmer RN (Registered Nurse) IV start, labs drawn and Dr. Lentz in room for eval. Judson Beltran MD - 05/23/2012 9:28 AM PDT ED Provider Notes by Judson Lentz MD at 05/23/12927 Author: Judson Lentz MD Service: (none) Author Type: Physician Filed: 05/23/12 1110 Date of Service: 05/23/12927 Status: Signed Appliance Repair Technician: Judson Lentz MD (Physician) . [facility] Patient Name: Piter Fleming Visit Date/time: 05/23/2012 9:14 AM Mode of Arrival:Car Accompanied by: Spouse Primary Care Provider: No Doc, No Doc History Obtained From: Information obtained from patient.and spouse. BRIEF ED ASSESSMENT & TREATMENT SUMMARY CHIEF COMPLAINT Chief Complaint Patient presents with FLANK PAIN ED PHYSICIAN ASSESSMENT AND CLINICAL SUMMARY Piter Fleming is a 67 y.o. male who presents with left sided flank pain with radiatio n to left testicle similar to prior episodes of kidney stones. Pt and from [place], [place] and drove to [place] yesterday to see son who lives in [place]. FINAL DIAGNOSIS 1. Ureterolithiasis (592.1) DISCHARGE MEDICATIONS New Prescriptions No medications on file FOLLOW-UP CARE Your doctor in [place], [place] Schedule an appointment as soon as possible for a visit DISPOSITION Piter Fleming is discharged to home well appearing and well hydrated in stable condit ion. Discharge diagnosis, instructions and plan were discussed and understood. At the time of discharge the patient was comfortable, not nauseated, was ambulating normally for them, a nd was in no apparent distress. The patient /family understood to return immediately to the emergency department if the symptoms worsen or if they have any additional concerns. EXTENDED ED RECORD HISTORY OF PRESENT ILLNESS (complete) Piter Fleming is a 67 y.o. male who presents with left flank pain. There is some rad iation to left groin/testicle. Denies F/C, N/V/D, hematuria, dizziness. Pt taking hydrocod one for chronic back pain and he took some of this this AM and currently has no pain--declin es pain meds in the ED. No alleviating factors. Urinating seems to make pain more intense. REVIEW OF SYSTEMS Patient ROS reveals no other complaints Other pertinent items as noted in the HPI All other review of systems is otherwise negative PAST MEDICAL HISTORY Reviewed and Past Medical History Diagnosis Date H/O gastric bypass PAST SURGICAL HISTORY Reviewed and Past Surgical History Procedure Date Appendectomy SOCIAL HISTORY History Substance Use Topics Smoking status: Not on file Smokeless tobacco: Not on file Alcohol Use: Yes No other significant social issues identified by me. FAMILY HISTORY No family history on file. CURRENT MEDICATIONS Previous Medications CITALOPRAM 40 MG ORAL TAB Take 40 mg by mouth every day. HYDROCODONE-ACETAMINOPHEN 5-500 MG ORAL CAP Take by mouth. LEVOTHYROXINE (AKA SYNTHROID) 150 MCG ORAL TAB Take 150 mcg by mouth every day. PRIMIDONE (AKA MYSOLINE) 50 MG ORAL TAB Take 50 mg by mouth every day. PROPRANOLOL (AKA INDERAL) 10 MG ORAL TAB Take 10 mg by mouth four times a day. TAMSULOSIN (AKA FLOMAX) 0.4 MG ORAL SR 24HR CAP Take 0.4 mg by mouth every day. THEOPHYLLINE CR, 12 HOUR, (AKA RUBIA DUR) 300 MG ORAL SR 12HR TAB Take 450 mg by mouth e very day. ALLERGIES No Known Allergies VITAL SIGNS Patient Vitals for the past 24 hrs: Temp BP BP Cuff Location Pulse Rate Resp SpO2 05/23/12 0919 36.6 C (97.9 F) 137/60 mmHg Right upper arm 51 bpm 16 96 % PHYSICAL EXAM Distress: The patient is in NAD. General Appearance: alert, oriented. Head: atraumatic, normocephalic Eyes: EOMI, no drainage Throat: oropharynx normal, mucous membranes moist Neck: supple, no meningeal signs Lungs: CTA, equal breath sounds, no wheezing or crackles, good air movement, Back: No CVA tenderness. No vertebral ttp. Cardiovascular: Regular rate and rhythm. No murmurs or noted abnormal heart sounds Abdomen: Benign and soft. Nontender. No rebound or guarding. There is no observed or pal pable distention or mass. Rectal: deferred : Circumcised. No penile discharge. Femoral pulses equal. No testicular ttp. Neuro: alert and oriented, conversant, no focal deficits noted. 5/5 UE/LE. Sensation inta ct to light touch. No facial droop. Gait nml. Extremities: Extremities atraumatic, warm, without cyanosis or edema. Psych: Normal, appropriate interactions Lymphatic: no significant adenopathy Skin: Normal, pink warm and dry without rash or jaundice DATA GATHERING The patient was seen and evaluated by myself. I reviewed the nurses notes and flow sheets. Prior EMR records reviewed in [employer] as available and clinically relevant. ED LABS AND STUDIES Results for orders placed during the hospital encounter of 05/23/12 (from the past 24 hour( s)) CBC WITH DIFF (ABS-%) Component Value Range WBC 14.5 (*) 4.0 - 10.5 th/mm3 RBC 4.01 (*) 4.14 - 5.80 mil/mm3 HGB 13.7 12.6 - 17.7 g/dL HCT 41.1 37.5 - 51.0 % MCV 103 (*) 79 - 97 fL MCH 34.2 (*) 26.6 - 33.0 pg MCHC 33.3 31.5 - 35.7 g/dL RDW 13.2 12.3 - 15.4 % PLATELET CT 245 140 - 415 bridget/L POLYS-AUTO 12.34 (*) 2.00 - 7.50 th/mm3 LYMPHS 0.87 (*) 1.00 - 4.50 th/mm3 MONOS 1.16 0 - 1.40 th/mm3 EOSINOPHILS 0.15 0 - 0.44 th/mm3 BASOPHILS 0.00 0 - 0.30 th/mm3 POLYS-AUTO,% 85 (*) 40 - 75 % LYMPHS,% 6 (*) 20 - 45 % MONOS,% 8 0 - 14 % EOSINOPHIL % 1 0 - 4 % BASOPHILS,% 0 0 - 2 % COMPREHENSIVE METABOLIC PANEL (CMP) Component Value Range POTASSIUM 4.2 3.5 - 5.2 mEq/L TOTAL CO2 27 20 - 32 mmol/L CREATININE 1.22 0.76 - 1.27 mg/dL CALCIUM 8.6 8.6 - 10.2 mg/dL UREA NITROGEN 17 8 - 27 mg/dL PROTEIN,TOTAL 7.0 6.0 - 8.5 g/dL ALBUMIN,S 3.4 (*) 3.6 - 4.8 g/dL BILIRUBIN,TOTAL 1.1 0.1 - 1.2 mg/dL SODIUM 134 134 - 144 mEq/L CHLORIDE 102 97 - 108 mEq/L GLUCOSE 125 (*) 65 - 99 mg/dL ALT(GPT) 19 0 - 55 U/L AST(GOT) 30 0 - 50 U/L ALK PTASE 92 25 - 160 U/L ANION GAP 5 5 - 19 GLOBULIN 3.6 1.5 - 4.5 g/dL A/G RATIO 0.9 (*) 1.1 - 2.5 LIPASE, SERUM Component Value Range LIPASE 146 73 - 393 U/L ESTIMATED GLOMERULAR FILTRATION RATE (EGFR) Component Value Range EGFR (NON-BLACK) 61.83 >59 mL/min EGFR (BLACK) 71.66 >59 mL/min URINALYSIS WITH CULTURE IF INDICATED Component Value Range COLOR Yellow Yellow APPEARANCE Sl Cldy Clear,Hazy SPEC GRAV 1.020 1.005 - 1.030 BILIRUBIN Neg Neg KETONES Neg Neg mg/dL GLUCOSE Neg Neg mg/dL PROTEIN Trace Neg,Trace mg/dL HEMOGLOBIN Large (*) Neg PH 5.5 5.0 - 7.5 NITRITE Neg Neg LEUK ESTERASE Neg Neg RBC >30 (*) 0 - 3 /hpf WBC 0-5 0 - 5 /hpf BACTERIA None Seen None-Few /hpf EPI NON RENAL 0-10 0 - 10 /hpf CULTURE INDICATED? Yes (*) See Notes CT ABDOMEN AND PELVIS WITHOUT CONTRAST Final Result: 1. Mild left hydronephrosis and hydroureter with a 2-3 mm stone in the left UVJ, bladder side. 2. Bilateral fat-containing inguinal hernias. 3. No significant lymphadenopathy. 4. Nonobstructing bilateral small renal stones. Signed by: MAUREEN LEE Dictated: 05/23/2012 10:43 AM Job: [id number] The above studies were interpreted by me contemporaneously in the emergency department. EMERGENCY DEPARTMENT COURSE/INTERVENTIONS Medications administered in the Emergency Department include: none--pt declined meds. Lab data reviewed. WBCs noted and discussed with patient. After the interventions described the patient was feeling better. Vital signs were reviewe d. Repeat physical exam found no changes. Pt updated about lab/urine results. The patient was was discharged home. The patient requires follow up. Condition at discharge was stable. The case was discussed with the patient and spouse. Return precautions and follow up were d iscussed. Pt tolerating fluids, pain controlled, no evidence of UTI. Pt is already of flom ax. Will prescribe oxycodone as pt has been taking hydrocodone with acetaminophen--will talha e oxycodone instead to avoid any possibility of taking too much acetaminophen in 24 hours. IMCJ no evidence of emergent pathology requiring further observation, workup or admission at this time. Pt is very reliable. Please see top of note for assessment, diagnosis and disposition. Judson Lentz MD 05/23/2012 09:29 eFanta brooks RN - 05/23/2012 9:18 AM PDTFormatting of this note might be different from the lin diehl. ED Notes by Fanta Farmer RN at 05/23/12917 Author: Fanta Farmer RN Service: (none) Author Type: Registered Nurse Filed: 05/23/12918 Date of Service: 05/23/12917 Status: Signed Appliance Repair Technician: Fanta Farmer RN (Registered Nurse) Left sided flank pain that started yesterday. 12/07 px. Hx of kidney stones. documented in this encounter Plan of Treatment Not on filedocumented as of this encounter Procedures + +--------+ + + + | Procedure Name | Priori | Date/Time | Associated Diagnosis | Comments | | | ty | | | | + +--------+ + + + | CULTURE, URINE | [facility] | 05/23/2012 | | Results for this | | | | 10:10 AM | | procedure are in the | | | | PDT | | results section. | + +--------+ + + + | CT ABDOMEN PELVIS WO | Routin | 05/23/2012 | | Results for this | | CONTRAST | e | 9:56 AM | | procedure are in the | | | | PDT | | results section. | + +--------+ + + + documented in this encounter Results Culture, Urine (05/23/2012 10:10 AM PDT) + + | Specimen | + + | | + + + + + | Narrative | Performed At | + + + | SOURCE URINE Final | EXTERNAL LAB | | Report No growth (<1,000 | | | organisms/mL) | | + + + + +---------+ + + | Performing | Address | City/State/Zipcode | Phone Number | | Organization | | | | + +---------+ + + | EXTERNAL LAB | | | | + +---------+ + + CT Abdomen Pelvis wo Contrast (05/23/2012 9:56 AM PDT) + + | Specimen | + + | | + + + + + | Impressions | Performed At | + + + | 1. Mild left hydronephrosis and hydroureter with a 2-3 mm stone | | | in the left UVJ, bladder side. 2. Bilateral fat-containing inguinal | | | hernias. 3. No significant lymphadenopathy. 4. Nonobstructing | | | bilateral small renal stones. Signed by: MAUREEN JACK | | | ROSA Dictated: 05/23/2012 10:43 AM Job: [id number] | | + + + + + + | Narrative | Performed At | + + + | CT abdomen and pelvis without contrast Clinical history: left | | | flank pain Comparison: None Technique: Noncontrast CT of the | | | abdomen and pelvis was obtained Findings: Lung bases: Clear. | | | Hypoventilatory changes in the lung bases. Abdomen pelvis: No | | | free air. Partial gastrectomy. Normal liver, post cholecystectomy | | | no intrahepatic or extrahepatic bile duct dilation. Normal spleen. 3 | | | mm stone in the right upper pole, image 37. The left kidney: Tiny | | | stone in the left upper collecting system, mild left hydronephrosis | | | and left hydroureter. Approximately 2 mm stone is seen on image 81 | | | in UVJ, bladder side. Fat-containing bilateral inguinal hernias. | | | No significant lymphadenopathy. Normal noncontrast CT appearance | | | of the pancreas. Bones: Severe degenerative changes of the lumbar | | | spine, most severe at L2-3 L3-4 L4-5 with Schmorl's nodes. Well | | | corticated subchondral cyst at L2. | | + + + + + | Procedure Note | + + | Benito, Pj Conversion - 02/11/2019 3:[address] abdomen and pelvis without contrast | | | | Clinical history: left flank pain | | | | Comparison: None | | | | Technique: Noncontrast CT of the abdomen and pelvis was obtained | | | | Findings: Lung bases: Clear. Hypoventilatory changes in the lung | | bases. | | | | Abdomen pelvis: No free air. Partial gastrectomy. | | | | Normal liver, post cholecystectomy no intrahepatic or extrahepatic | | bile duct dilation. Normal spleen. 3 mm stone in the right upper | | pole, image 37. | | | | The left kidney: Tiny stone in the left upper collecting system, mild | | left hydronephrosis and left hydroureter. | | | | Approximately 2 mm stone is seen on image 81 in UVJ, bladder side. | | | | Fat-containing bilateral inguinal hernias. | | | | No significant lymphadenopathy. Normal noncontrast CT appearance of | | the pancreas. | | | | Bones: Severe degenerative changes of the lumbar spine, most severe | | at L2-3 L3-4 L4-5 with Schmorl's nodes. Well corticated subchondral | | cyst at L2. | | | | IMPRESSION: | | | | 1. Mild left hydronephrosis and hydroureter with a 2-3 mm stone in | | the left UVJ, bladder side. | | 2. Bilateral fat-containing inguinal hernias. | | 3. No significant lymphadenopathy. | | 4. Nonobstructing bilateral small renal stones. | | | | Signed by: [email or web address] MARCIE LEE | | Dictated: 05/23/2012 10:43 AM | | Job: [id number] | + + documented in this encounter Visit Diagnoses + + | Diagnosis | + + | Ureterolithiasis Calculus of ureter | + + documented in this encounter"
--- OUTSIDE RECORDS SUMMARY | ~2020-06-17 | XMS | Encounter Summary ---
Demographics + + + | Address | [address] | | | [place] [address] | + + + | Home Phone [...] + | Author | [facility] | | | and [place] | [...] [place] | | | | | [address] | | + + + + + | Mason Fleming | ECON | Unknown | | + + + + + Care Team Providers + +------+ + | Care Lace Roller Name | Role | Phone | + +------+ + | Michael Grijalva | PCP | | | MD | | | + +------+ + Encounter Details +--------+ + + + + | Date | Type | Department | Care Team | Description | +--------+ + + + + | 05/11/ | Hospital | [facility] | Joshua Jorge MD | | | 2016 | Encounter | MED CTR XRAY [address] | | | | | [place] | [place] [address] | | | | | [place] [address] | [phone] | | | | | [phone] | | | +--------+ + + + [...] 4 views of the lumbar spine. | [facility] | | There are 5 nonrib-bearing lumbar-type [...] + + + + + | [facility] [place]. | [address] | [place] | [phone] | | [facility] | | [address] | | | - IMAGING | | | | + + + + + documented in this encounter Visit Diagnoses Not on filedocumented in this encounter"
--- OUTSIDE RECORDS SUMMARY | ~2020-06-17 | XMS | Encounter Summary ---
Demographics + + + | Address | [address] | | | [place] [address] | + + + | Home Phone [...] + + + | Author | [facility] | | | and [place] | + + + | Organization | [facility] | | | [...] [place] | | | | | [address] | | + + + + + | Mason Fleming | ECON | Unknown | | + + + + + Care Team Providers + +------+ + | Care Biometric Fingerprinting Technician Name | Role | Phone | + +------+ + | Michael Grijalva | PCP | | | MD | | | + +------+ + Reason for Visit +--------+--------+ + | Reason | Onset | Comments | | | Date | | +--------+--------+ + | Other | 08/02/ | | | | 2011 | | +--------+--------+ + Encounter Details +--------+ + + + + | Date | Type | Department | Care Team | Description | +--------+ + + + + | 08/02/ | Telephone | [facility] | Peter Haney | Other | | 2011 | | PHYSIATRY [address] | | | | [address] [place] [address] [place], [place] | | | | | [place], [place] | [address] | | | | | [address] | | | | | | [phone] | | | +--------+ + + + [...] Notes Telephone Encounter - Mahogany Elena - 08/02/2012 2:46 PM PSTPatient was seen today [facility] Dr. Haney asked that it be noted that patient is having new symptoms of right sacroiliac pain. If his pain continues to be an issue in two we eks Dr. Haney would be willing to offer a right SI joint injection.Electronically mary d by Mahogany Elena at 08/02/2012 2:47 PM PSTdocumented in this encounter Plan of Treatment Not on filedocumented as of this encounter Visit Diagnoses Not on filedocumented in this encounter"
--- OUTSIDE RECORDS SUMMARY | ~2020-06-17 | XMS | Encounter Summary ---
Demographics + + + | Address | [address] | | | [place] [address] | + + + | Home Phone | | + + + | Preferred Language | Unknown | + + + | Marital Status | | + + + | Temple Affiliation | 1013 | + + + | Race | White | + + + | Ethnic Group | Not or | + + + Author + + + | Author | [facility] | | | and [place] | + + + | Organization | [facility] | | | and [...] [place] | | | | | [address] | | + + + + + | Mason Fleming | ECON | Unknown | | + + + + + Care Team Providers + +------+ + | Care Phlebotomist Medical Lab Assistant Name | Role | Phone | [...] | | hip Right | | [place] [address] | | | | | hip pain | | Phone: | | | | | Procedures | | [phone] | | | | | AL TOTAL HIP | | Fax: | | | | | | | [phone] | | | | | ARTHROPLASTY | [...] + + + + | 09/05/ | Anesthesia | LAURA SANTILLAN | Fernando Lyon, | | | 2019 | Event | [facility] | [address] | | | | | [address] | [place], [place] | | | | | [place], [place] | [address] | | | | | [address] | | | | | | [phone] | | | +--------+ + + + + Anesthesia Record + + + + + | Procedure Name | Responsible | Anesthesia Start | Anesthesia Stop Time | | | Anesthesiologist | Time | | + + + + + | Right Total Hip | Fernando Lyon MD | 09/05/19 1147 | 09/05/19 1414 | | Arthroplasty | | | | | Anterior Approach | | | | | (Right Hip) | | | | + + + + + +----+---+ + + | Da | T | Event | Comment | | te | i | | | | | m | | | | | e | | | +----+---+ + + | 01 | 1 | | | | /0 | 1 | | | | 7/ | 3 | | | | 20 | 0 | | | | 20 | | | | +----+---+ + + | | 1 | An Checkout | Pre-use anesthesia machine/equipment checkout. | | | 1 | | | | | 3 | | | | | 0 | | | +----+---+ + + | | 1 | Pre-Procedu | | | | 1 | ral Timeout | | | | 3 | Completed | | | | 6 | | | +----+---+ + + | | 1 | An Start | | | | 1 | Data | | | | 3 | | | | | 6 | | | +----+---+ + + | | 1 | Block Start | | | | 1 | | | | | 3 | | | | | 8 | | | +----+---+ + + | | 1 | AN Block | | | | 1 | End | | | | 4 | | | | | 5 | | | +----+---+ + + | | 1 | an stop | | | | 1 | data | | | | 4 | | | | | 7 | | | +----+---+ + + | | 1 | An Start | Reassessment prior to anesthesia induction/procedure. | | | 1 | | | | | 4 | | | | | 7 | | | +----+---+ + + | | 1 | Preoxygenat | | | | 1 | ed | | | | 5 | | | | | 2 | | | +----+---+ + + | | 1 | An | | | | 1 | Induction | | | | 5 | | | | | 3 | | | +----+---+ + + | | 1 | Antibiotic | | | | 1 | Given | | | | 5 | | | | | 3 | | | +----+---+ + + | | 1 | An | | | | 1 | Intubation | | | | 5 | | | | | 4 | | | +----+---+ + + | | 1 | AN Bite | | | | 1 | Block | | | | 5 | | | | | 5 | | | +----+---+ + + | | 1 | [place] | | | | 2 | 43-degrees | | | | 1 | | | | | 1 | | | +----+---+ + + | | 1 | First | | | | 2 | Inc/Proc St | | | | 1 | | | | | 5 | | | +----+---+ + + | | 1 | [place] off | | | | 4 | | | | | 0 | | | | | 2 | | | +----+---+ + + | | 1 | Quick Note | Small amount of green non-particulate fluid noted in LMA at | | | 4 | | emergence. Possible risk for aspiration. Communicated with | | | 0 | | surgeon and PACU. | | | 2 | | | +----+---+ + + | | 1 | Breathing | | | | 4 | Spontaneous | | | | 0 | ly | | | | 7 | | | +----+---+ + + | | 1 | Extubation/ | | | | 4 | Airway LDA | | | | 0 | Removal | | | | 7 | | | +----+---+ + + | | 1 | an stop | | | | 4 | data | | | | 0 | | | | | 7 | | | +----+---+ + + | | 1 | An Stop | Patient handed off to recovery nurse. | | | 1 | | | | | 4 | | | +----+---+ + + +------+ | Meds | +------+ + + + | Name | Total | + + + | Fentanyl | 100 mcg | + + + | lidocaine 2% (PF) | 100 mg | + + + | Propofol | 160 mg | + + + | dexamethasone | 10 mg | + + + | ondansetron | 4 mg | + + + | HYDROmorphone | 1 mg | + + + | ketamine | 125 mg | + + + | ropivacaine 0.5% | 20 mL | + + + | glycopyrrolate (ROBINUL) | 0.7 mg | | injection (5 mL vial) | | + + + | ceFAZolin (ANCEF, KEFZOL) 100 | 2 g | | mg/mL IV syringe 2 g | | + + + | ePHEDrine (AKOVAZ) injection 50 | 10 mg | | mg/mL | | + + + | tranexamic acid | 2,000 mg | + + + | lactated ringers (LR) infusion | 1,550 mL | + + + + + | Name | + + | N2O Flow Rate (L/Min) | + + | O2 Flow Rate (L/Min) | + + | Insp O2 | + + | Exp SEV | + + | Air Flow Rate (L/Min) | + + + + | No blood administrations on file. | + + +--------+ + + + | Type | Details | Placement | Removal | +--------+ + + + | Periph | 09/05/19; 1135; Right; Hand; | 09/05/19 1135 by | 09/07/19 1020 by | | eral | [id number] catheter system; | Maxine Encarnacion RN | Ron Pérez, | | IV | 18 gauge, 1 1/2 in length; 2; | | RN | | | left hand and forearm; | | | | | distraction, intradermal | | | | | injection, tolerated well; short | | | | | term use; 09/07/19; 1020 | | | +--------+ + + + | Airway | Placement Date: 09/05/19; | 09/05/19 115 by | 09/05/19 1407 by | | | Placement Time: 1154 (created via | Fernando Lyon MD | Fernando Lyon MD | | | procedure documentation); Mask | | | | | Ventilation: (reasonable; able | | | | | to mask ventilate with effort); | | | | | Attempts: 1; Airway Type: | | | | | laryngeal mask; Size: 5; Trauma: | | | | | none; Placement Check: exhaled | | | | | CO2 detection device; Removal | | | | | Date: 09/05/19; Removal Time: | | | | | 1407 | | | +--------+ + + + | Wound | 09/05/19; 1310; Incision; Right; | 09/05/19 1310 by | 09/07/19 1115 by | | | hip; Healing; 09/07/19; 1115 | Brandon Barillas RN | Ron Pérez, | | | | | RN | +--------+ + + + | Drain/ | 09/05/19; 1355; #1; Right; other | 09/05/19 1355 by | 09/07/19 1115 by | | Device | (see comments) (anterior/lateral | Brandon Barillas RN | Ron Pérez, | | Site | aspect); hip; autotransfusion | | RN | | | system; VAC VIA; expected removal | | | | | post discharge; 09/07/19; 1115 | | | +--------+ + + + documented in this encounter Social History + +-------+ +--------+ + | [...] + + documented as of this encounter OR Notes Anesthesia Postprocedure Evaluation - Fernando Lyon MD - 09/07/2019 11:29 AM PSTFormadriana castano of this note might be different from the original. ANESTHESIA POSTANESTHESIA EVALUATION Piter Fleming 74 y.o. male 1945 [id number] Procedure(s) Right Total Hip Arthroplasty Anterior Approach (Right Hip) Cooperates? Yes Mental Status Performs simple tasks. Respiratory Satisfactory - Airway patent (self maintained). Cardiovascular Satisfactory - Blood pressure and heart rate acceptable Temperature Satisfactory Pain Satisfactory N/V Control Satisfactory Hydration Satisfactory - No signs of dehydration Adverse Events ADVERSE EVENTS: No adverse events Never developed aspiration symptoms. Did well with pain control despite buprenorphine. Ve ry pleased with care; dressed and getting ready to go. Made sure to educate spouse and patient that in the future he should probably not have an L MA given his near-aspiration event with an LMA in this case. They expressed understanding. Vitals Value Taken Time Temp 36.4 C (97.5 F) 09/07/2019 7:42 AM Pulse 91 09/07/2019 7:42 AM Resp 18 09/07/2019 7:42 AM BP 107/52 09/07/2019 7:42 AM Arterial Line BP Arterial Line BP 2 SpO2 99 % 09/07/2019 7:42 AM Electronically signed by Fernando Lyon MD 09/07/2019 11:29 AM [facility] signed by Fernando Lyon MD at 04/2020 11:31 AM PSTAnesthesia Postprocedure Evaluation - Fernando Lyon MD - 09/05/2019 3 :33 PM PST ANESTHESIA POSTANESTHESIA EVALUATION Piter Fleming 74 y.o. male 1945 [id number] Procedure(s) Right Total Hip Arthroplasty Anterior Approach (Right Hip) Cooperates? Yes Mental Status Performs simple tasks. Respiratory Satisfactory - Airway patent (self maintained). Cardiovascular Satisfactory - Blood pressure and heart rate acceptable Temperature Satisfactory Pain Satisfactory N/V Control Satisfactory Hydration Satisfactory - No signs of dehydration Adverse Events ADVERSE EVENTS: No adverse events Sitting up, doing well. Oxygenating 100% on mask O2. HR 50; patient quite commonly bradyc ardic in past PACU experiences. Educated patient about possible aspiration. Vitals Value Taken Time Temp 37.2 C (99 F) 09/05/2019 2:13 PM Pulse 60 09/05/2019 3:32 PM Resp 16 09/05/2019 3:32 PM BP 143/66 09/05/2019 3:31 PM Arterial Line BP Arterial Line BP 2 SpO2 100 % 09/05/2019 3:32 PM Vitals shown include unvalidated device data. Electronically signed by Fernando Lyon MD 09/05/2019 3:33 PM [facility] signed by Fernando Lyon MD at 02/2020 3:34 PM PSTAnesthesia Procedure Notes - Fernando Lyon MD - 09/05/2019 12:24 PM PS TAssociated Order(s): Nerve BlockPerineural Procedure Note 09/05/2019 11:45 AM Nerve block: fascia iliaca Laterality: right Continuous block with catheter: No Provider requested procedure: [place] Indication: postoperative analgesia Preprocedure check: patient identified, procedure and rescue equipment checked, preevaluati on including airway assessment complete, risks/benefits discussed, consent obtained, timeout performed, reassessment prior to procedure and monitors applied Patient position: supine Preparation: chlorhexidine/isopropyl alcohol Introducer used: no Technique: ultrasound Radiology image stored in patient's chart: ultrasound Needle: stimulating Needle size: 21 g Needle length: 4 in Medication administered through: needle and incremental injection Negative findings: no blood aspirated and no paresthesia Total volume of local anesthetic solution administered: 20 mL Attempts: 1 Ease of procedure: easy Comments: Regional block placed for postoperative pain control at request of patient and romero rgeon. Under ultrasound guidance, a needle (as specified above) was inserted and placed in close proximity to the fascia iliaca plane. Ultrasound was also used to visualize the spre ad of local anesthetic in close proximity to the plane being blocked. The nerve appeared an atomically normal, and there was no apparent abnormal pathological findings. A permanent ul trasound image was saved in the patient's record. Positive level and "donut" sign was confi rmed over the proximal femoral nerve following the block. NIBP/SpO2 monitoring. Spouse at bedside throughout procedure. Please see anesthesia record or flowsheet for vital sign documentation and see anesthesia r ecord or MAR for additional medication documentation. Performing provider: Fernando Lyon MD Authorizing provider: Fernando Lyon MD nesthesia Procedure Notes - Fernando Lyon MD - 09/05/2019 12:23 PM PSTAssociated Order(s): AirwayAnesthesia A irway Placement 09/05/2019 11:54 AM Preprocedure check: patient identified, suction, airway equipment checked, oxygen, airway a ssessed and patient reassessment prior to induction Rapid Sequence Induction: no LDA mask ventilation: reasonable; able to mask ventilate with effort. Attempts: 1 Airway type: laryngeal mask Size: 5 Cuffed: cuffed Route, reference point: center of mouth Trauma: none Tube placement verification: carbon dioxide detection Performing provider: Fernando Lyon MD Authorizing provider: Fernando Lyon MD Please see intraoperative grid for any additional medication documentation. nesthesia Preprocedu re Evaluation - Fernando Lyon MD - 09/05/2019 10:39 AM PSTFormatting of this note might b e different from the original. ANESTHESIA PREANESTHESIA EVALUATION Piter Fleming 74 y.o. male 1945 [id number] Procedure(s): Right Total Hip Arthroplasty Anterior Approach (Right Hip) Medical,anesthesia, drug, allergy histories reviewed, NPO status verified. ECG reviewed. Labs reviewed. Review of Systems / Med History Anesthesia History Prone to a low heart rate perioperatively; had a Holter Monitor workup in the past.. Cardiovascular Results for orders placed or performed in visit on 08/11/19 -ECG 12 lead Result Value Ref Ra nge INTERPRETATION TEXT Undetermined rhythm (possibly atrial fibrillation) transitioning to sinus rhythm with 1st degree AV block Right bundle branch block Left anterior fascicular block T wave abnormality, consider inferior ischemia Abnormal ECG When compared with ECG of 06-AUG-2016 13:00, Inferior T wave abnormalities are unchanged Confirmed by ANNY PERSON, AISLINN ([id number]) on 08/12/2019 6:36:39 AM . Exercise tolerance >4 METS (+) hypertension . Pulmonary (+) obstructive sleep apnea.(+) Sleep apnea history/interventions: CPAP and know n.(+) asthma.(+) tobacco use.(+) ex-smoker: 1980. Gastrointestinal/Hepatic (+) hypercholesterolemia. Renal Lab Results Component Value Date CREA 0.92 08/11/2019 BUN 16 08/06/2016 NA 137 08/11/2019 K 4.0 08/11/2019 CL 98 08/11/2019 CO2 28 08/11/2019 . (+) renal/ureteral stones. Endocrine (+) hypothyroidism. Hematology/Other Lab Results Component Value Date WBC 9.0 08/06/2016 HGB 13.2 (L) 08/06/2016 HCT 39.3 (L) 08/06/2016 MCV 102.5 (H) 08/06/2016 PLT 240 08/06/2016 . Neuromuscular (+) neuropathy, chronic pain (On suboxone). Psychology (+) psychiatric history of depression. Physical Exam Airway MP II, TM >3 FB, Mouth opening >2 FB. Neck: full ROM, extends >30 degrees. Dental grossly normal except where noted below. CV Rhythm regular. Rate Normal. (-) murmur. Pulm Clear to auscultation bilaterally. Neuro grossly normal. Anesthesia Plan ASA: 3 Type: General, PNB. Induction: Intravenous. Potential problems: None anticipated. Monitors: Standard ASA monitors. Postop Pain Management: Peripheral Nerve Block. Fascia Iliaca Consent statement: Anesthetic plan, alternatives, risks and benefits discussed with patient. drug reaction, in fection, nausea, pain, perioperative CV events, respiratory events, sore throat, failed or i nadequate block, bleeding, nerve damage, intravascular injection Consenting person understands and agrees to proceed. PARQ. Fascia Iliaca single-shot peripheral nerve block requested by patient and surgeon for posto perative pain control. Full PARQ held. All questions answered. Plan GA w/ LMA. BETTY precautions. Patient given gabapentin preop along with acetaminophen. Regularly on suboxone; took today. Multimodal pain control. Discussed with patient and romero rgeon. Patient wishes to proceed despite possible increase in postoperative pain.. Electronically Signed by: Fernando Lyon MD ESig date/time: 09/05/2019 10:39 AM documented in this en counter Miscellaneous Notes Anesthesia Post-op Handoff - Fernando Lyon MD - 09/05/2019 2:14 PM PSTFormatting of thi s note might be different from the original. ANESTHESIA HANDOFF NOTE Piter Fleming 74 y.o. male 1945 [id number] Right Total Hip Arthroplasty Anterior Approach (Right Hip) HANDOFF NOTE Handoff Protocol Used: post-procedure handoff checklist completed The following were completed during the transfer of care: 1. Identification of patient 2. Identification of responsible practitioner (primary service) 3. Discussion of pertinent medical history 4. Discussion of the surgical/procedure course (procedure, reason for surgery, procedure pe rformed) 5. Intraoperative anesthetic management and issues/concerns 6. Expectations/plans for the early post-procedure period 7. Opportunity for questions and acknowledgement of understanding of report from receiving team Patient Location: Phase I Condition: sedated Airway/O2: face mask with O2 Multimodal analgesia: multimodal analgesia used between 6 hours prior to anesthesia start t o PACU discharge Two or more BETTY mitigation strategies used: perioperative obstructive sleep apnea intervent ions applied Comments: Supplemental Oxygen used as necessary to maintain Oxygen Saturation at or above 9 2% The significant anesthesia concerns and VS in Epic were reviewed with the receiving team. Fernando Lyon MD 09/05/2019 2:14 PM [facility] signed by Fernando Lyon MD at 02/2020 2:14 PM PSTdocumented in this encounter Plan of Treatment Not on filedocumented as of this encounter Procedures + +--------+ + + + | Procedure Name | Priori | Date/Time | Associated Diagnosis | Comments | | | ty | | | | + +--------+ + + + | ANE NERVE BLOCK | Routin | 09/05/2019 | | Results for this | | CATHETER NOTE | e | 12:24 PM | | procedure are in the | | | | PST | | results section. | + +--------+ + + + | ANE AIRWAY NOTE | Routin | 09/05/2019 | | Results for this | | | e | 12:23 PM | | procedure are in the | | | | PST | | results section. | + +--------+ + + + documented in this encounter Results Nerve Block (09/05/2019 12:24 PM PST) + + + | Narrative | Performed At | + + + | Fernando Lyon MD 09/05/2019 12:24 PM Perineural Procedure | | | Note 09/05/2019 11:45 AM Nerve block: fascia iliaca Laterality: | | | right Continuous block with catheter: No Provider requested | | | procedure: [place] Indication: postoperative analgesia | | | Preprocedure check: patient identified, procedure and rescue equipment | | | checked, preevaluation including airway assessment complete, | | | risks/benefits discussed, consent obtained, timeout performed, | | | reassessment prior to procedure and monitors applied Patient | | | position: supine Preparation: chlorhexidine/isopropyl alcohol | | | Introducer used: no Technique: ultrasound Radiology image stored in | | | patient's chart: ultrasound Needle: stimulating Needle size: 21 g | | | Needle length: 4 in Medication administered through: needle and | | | incremental injection Negative findings: no blood aspirated and no | | | paresthesia Total volume of local anesthetic solution administered: | | | 20 mL Attempts: 1 Ease of procedure: easy Comments: Regional | | | block placed for postoperative pain control at request of patient | | | and surgeon. Under ultrasound guidance, a needle (as specified | | | above) was inserted and placed in close proximity to the fascia | | | iliaca plane. Ultrasound was also used to visualize the spread of | | | local anesthetic in close proximity to the plane being blocked. | | | The nerve appeared anatomically normal, and there was no apparent | | | abnormal pathological findings. A permanent ultrasound image was | | | saved in the patient's record. Positive level and "donut" sign was | | | confirmed over the proximal femoral nerve following the block. | | | NIBP/SpO2 monitoring. Spouse at bedside throughout procedure. | | | Please see anesthesia record or flowsheet for vital sign | | | documentation and see anesthesia record or MAR for additional | | | medication documentation. Performing provider: Fernando Lyon | | | Authorizing provider: Fernando Lyon MD | | + + + Airway (09/05/2019 12:23 PM PST) + + + | Narrative | Performed At | + + + | Fernando Lyon MD 09/05/2019 12:24 PM Anesthesia Airway | | | Placement 09/05/2019 11:54 AM Preprocedure check: patient | | | identified, suction, airway equipment checked, oxygen, airway | | | assessed and patient reassessment prior to induction Rapid Sequence | | | Induction: no LDA mask ventilation: reasonable; able to mask | | | ventilate with effort. Attempts: 1 Airway type: laryngeal mask | | | Size: 5 Cuffed: cuffed Route, reference point: center of mouth | | | Trauma: none Tube placement verification: carbon dioxide detection | | | Performing provider: Fernando Lyon MD Authorizing provider: Fernando Cunha | | | MD Camron Please see intraoperative grid for any | | | additional medication documentation. | | + + + documented in this encounter Visit Diagnoses Not on filedocumented in this encounter Administered Medications + +--------+ +------+------+------+ | Medication Order | MAR | Action | Dose | Rate | Site | | | Action | Date | | | | + +--------+ +------+------+------+ | ceFAZolin (ANCEF, KEFZOL) 100 | Given | 09/05/19 | 2 g | | | | mg/mL IV syringe 2 g 2 g, | | 20 11:53 | | | | | Intravenous, Administer over 30 | | AM PST | | | | | Minutes, Prior to Incision, | | | | | | | Starting 1/7/20 at 1133, For | | | | | | | 1 dose, Pre-op, Indications: | | | | | | | Surgical Prophylaxis | | | | | | + +--------+ +------+------+------+ +---+---+ | | | +---+---+ + +-------+ +-------+---+---+ | dexamethasone (PF) 10 mg/mL | Given | 09/05/19 | 10 mg | | | | injection Intravenous, PRN, | | 20 12:05 | | | | | Starting 09/05/19 at 1205, | | PM PST | | | | | Anesthesia Intra-op | | | | | | + +-------+ +-------+---+---+ +---+---+ | | | +---+---+ + +-------+ +-------+---+---+ | ePHEDrine (AKOVAZ) 50 mg/mL | Given | 09/05/19 | 10 mg | | | | injection Intravenous, PRN, | | 20 12:08 | | | | | Starting 09/05/19 at 1208, | | PM PST | | | | | Anesthesia Intra-op | | | | | | + +-------+ +-------+---+---+ +---+---+ | | | +---+---+ + +-------+ +--------+---+---+ | fentaNYL (PF) injection PRN, | Given | 09/05/19 | 50 mcg | | | | Starting 09/05/19 at 1138, | | 20 12:12 | | | | | Anesthesia Intra-op | | PM PST | | | | + +-------+ +--------+---+---+ +-------+ +--------+---+---+ | Given | 09/05/19 | 50 mcg | | | | | 20 11:38 | | | | | | AM PST | | | | +-------+ +--------+---+---+ +---+---+ | | | +---+---+ + +-------+ +--------+---+---+ | glycopyrrolate (ROBINUL) | Given | 09/05/19 | 0.2 mg | | | | injection Intravenous, PRN, | | 20 1:47 | | | | | Starting Wed09/05/19 at 1203, | | PM PST | | | | | Anesthesia Intra-op | | | | | | + +-------+ +--------+---+---+ +-------+ +--------+---+---+ | Given | 09/05/19 | 0.2 mg | | | | | 20 12:08 | | | | | | PM PST | | | | +-------+ +--------+---+---+ | Given | 09/05/19 | 0.3 mg | | | | | 20 12:03 | | | | | | PM PST | | | | +-------+ +--------+---+---+ +---+---+ | | | +---+---+ + +-------+ +------+---+---+ | HYDROmorphone (DILAUDID) 2 | Given | 09/05/19 | 1 mg | | | | mg/mL injection Intravenous, | | 20 12:39 | | | | | PRN, Starting Wed09/05/19 at 1239, | | PM PST | | | | | Anesthesia Intra-op | | | | | | + +-------+ +------+---+---+ +---+---+ | | | +---+---+ + +-------+ +-------+---+---+ | ketamine 50 mg/mL injection | Given | 09/05/19 | 50 mg | | | | Intravenous, PRN, Starting Tue | | 20 12:31 | | | | | 09/05/19 at 1153, Anesthesia | | PM PST | | | | | Intra-op | | | | | | + +-------+ +-------+---+---+ +-------+ +-------+---+---+ | Given | 09/05/19 | 25 mg | | | | | 20 12:12 | | | | | | PM PST | | | | +-------+ +-------+---+---+ | Given | 09/05/19 | 50 mg | | | | | 20 11:53 | | | | | | AM PST | | | | +-------+ +-------+---+---+ +---+---+ | | | +---+---+ + +---------+ +---+---+---+ | lactated ringers (LR) infusion | New Bag | 09/05/19 | | | | | at 10-100 mL/hr, Intravenous, | | 20 1:17 | | | | | CONTINUOUS, Starting Wed09/05/19 | | PM PST | | | | | at 1045, TKO., Pre-op | | | | | | + +---------+ +---+---+---+ +---------+ +---+-------+---+ | New Bag | 09/05/19 | | 100 | | | | 20 11:36 | | mL/hr | | | | AM PST | | | | +---------+ +---+-------+---+ +---+---+ | | | +---+---+ + +-------+ +--------+---+---+ | lidocaine (PF) 2% injection | Given | 09/05/19 | 100 mg | | | | PRN, Starting 09/05/19 at 1153, | | 20 11:53 | | | | | Anesthesia Intra-op | | AM PST | | | | + +-------+ +--------+---+---+ +---+---+ | | | +---+---+ + +-------+ +------+---+---+ | ondansetron (ZOFRAN) injection | Given | 09/05/19 | 4 mg | | | | PRN, Starting Wed09/05/19 at | | 20 1:50 | | | | | 1350, Anesthesia Intra-op | | PM PST | | | | + +-------+ +------+---+---+ +---+---+ | | | +---+---+ + +-------+ +--------+---+---+ | propofol (DIPRIVAN) injection | Given | 09/05/19 | 160 mg | | | | Intravenous, PRN, Starting Wed | | 20 11:53 | | | | | 09/05/19 at 1153, Anesthesia | | AM PST | | | | | Intra-op | | | | | | + +-------+ +--------+---+---+ +---+---+ | | | +---+---+ + +-------+ +--------+---+---+ | ropivacaine (NAROPIN) 5 mg/mL | Given | 09/05/19 | 20 mLs | | | | (0.5%) injection PERINEURAL, | | 20 11:45 | | | | | PRN, Starting Wed09/05/19 at 1145, | | AM PST | | | | | Anesthesia Intra-op | | | | | | + +-------+ +--------+---+---+ +---+---+ | | | +---+---+ + +-------+ + +---+---+ | tranexamic acid (CYKLOKAPRON) | Given | 09/05/19 | 1,000 mg | | | | injection Intravenous, | | 20 1:50 | | | | | Administer over 15 Minutes, PRN, | | PM PST | | | | | Starting Wed09/05/19 at 1153, | | | | | | | Anesthesia Intra-op | | | | | | + +-------+ + +---+---+ +-------+ + +---+---+ | Given | 09/05/19 | 1,000 mg | | | | | 20 11:53 | | | | | | AM PST | | | | +-------+ + +---+---+ +---+---+ | | | +---+---+ documented in this encounter
--- OUTSIDE RECORDS SUMMARY | ~2020-06-17 | XMS | Encounter Summary ---
Demographics + + + | Address | [address] | | | [place] [address] | + + + | Home Phone [...] | [facility] | | | and [...] [place] | | | | | [address] | | + + + + + | Mason Fleming | ECON | Unknown | | + + + + + Care Team Providers + +------+ + | Care Baby Formula Worker Name | Role | Phone | + +------+ + | Michael Grijalva | PCP | | | MD | | | + +------+ + Reason for Visit + +--------+ + | Reason | Onset | Comments | | | Date | | + +--------+ + | Referral | 02/08/ | Injections | | (PreAuthorization) | 2019 | | + +--------+ + Encounter Details +--------+ + + + + | Date | Type | Department | Care Team | Description | +--------+ + + + + | 02/08/ | Telephone | [facility] | Brandon Mckenzie MD | Referral | | 2019 | | [facility] | [address] | (PreAuthorization) | | | | [address] | [address] [place] | (Injections) | | | | [place] | [place] [address] | | | | | [address] | [phone] | | | | | [phone] | | | +--------+ + + + [...] this encounter Miscellaneous Notes Telephone Encounter - Brandon Mckenzie MD - 02/08/2019 1:12 PM PDTAttempted to phone the praveen leigh to clarify. We are working on requesting authorization for a hamstring percutaneous ne edle tenotomy to allow us to do the procedure we discussed at his office visit. I left a dao segura. I will attempt to call the patient again later today to explain further and answer any nece ssary questions and direct him to the physiatry office if he does not want to proceed with w hat we do offer regarding the proximal hamstring issue. Dr Mckenzie elephone Courtney Trevino RN - 02/08/2019 9:41 AM PDTIt appears there is an authorized referral to for injections. Patient is going to follow up with his office an d get scheduled. elephone Renee Lares - 02/08/2019 9:28 AM PDTPatient called and states that he was suppose d to receive steroid injections as discussed with Dr. Mckenzie at appointment on 02/01/19. Pat fozia would like to know if this is still the plan. Please advise. documented in this encounter Plan of Treatment Not on filedocumented as of this encounter Visit Diagnoses Not on filedocumented in this encounter"
--- OUTSIDE RECORDS SUMMARY | ~2020-06-17 | XMS | Encounter Summary ---
Demographics + + + | Address | [address] | | | [place] [address] | + + + | Home Phone | | + + + | Preferred Language | Unknown | + + + | Marital Status | | + + + | Taoism Affiliation | 1013 | + + + | Race | White | + + + | Ethnic Group | Not or | + + + Author + + + | Author | [facility] | | | and [place] | + + + | Organization | [facility] | | | [...] [place] | | | | | [address] | | + + + + + | Mason Fleming | ECON | Unknown | | + + + + + Care Team Providers + +------+ + | Care Chemical Engineering Intern Name | Role | Phone | + +------+ + | Michael Grijalva | PCP | | | MD | | | + +------+ + Reason for Visit +--------+--------+ + | Reason | Onset | Comments | | | Date | | +--------+--------+ + | Other | 07/05/ | | | | 2011 | | +--------+--------+ + Encounter Details +--------+ + + + + | Date | Type | Department | Care Team | Description | +--------+ + + + + | 07/05/ | Telephone | [facility] | Peter Haney | Other | | 2011 | | [address]SIATRY [address] | [address] | | | | | [address] | [place], [place] | | | | | [place], [place] | [address] | | | | | [address] | | | | | | [phone] | | | +--------+ + + + [...] Notes Telephone Encounter - Mahogany Elena - 07/06/2012 4:13 PM PSTLeft voicemail message for patient to call our office back. 4: 14 PM PSTTelephone Encounter - Christy Iqbal - 07/05/2012 1:37 PM PSTCall from patient [facility] he would like to speak to nurse prior to appointment on . Patient states it is regarding sequencing injections. P M PSTdocumented in this encounter Plan of Treatment Not on filedocumented as of this encounter Visit Diagnoses Not on filedocumented in this encounter"
--- OUTSIDE RECORDS SUMMARY | ~2020-06-17 | XMS | Encounter Summary ---
Demographics + + + | Address | [address] | | | [place] [address] | + + + | Home Phone | | + + + | Preferred Language | Unknown | + + + | Marital Status | | + + + | Restorationism Affiliation | 1013 | + + + | Race | White | + + + | Ethnic Group | Not or | + + + Author + + + | Author | [facility] | | | and [place] | [...] [place] | | | | | [address] | | + + + + + | Mason Fleming | ECON | Unknown | | + + + + + Care Team Providers + +------+ + | Care Community Service Organization Director Name | Role | Phone | + +------+ + | Michael Grijalva | PCP | | | MD | | | + +------+ + Encounter Details +--------+ + + + + | Date | Type | Department | Care Team | Description | +--------+ + + + + | 09/17/ | Hospital | [facility] | Jun Stout | Lumbar | | 2017 | Encounter | MED CTR XRAY [address] | [address] | radiculopathy; S/P | | | | [place] | [address] [place] | lumbar fusion | | | | [place] [address] | [id number] | | | | | [phone] | | | +--------+ + + + [...] tablets by | 120 | 0 | 09/17/19 | | | HYDROcodone-acetamin | mouth every 4 hours | tablet | | 17 | 7 | | ophen (NORCO) 10-325 | as [...] tablet by | 30 | 0 | 08/18/20 | | | CONTIN) 30 mg ER | mouth every 12 | tablet | | 16 | 7 | | tabletIndications: | hours. | | | | | | S/P [...] LUMBAR SPINE 2 OR | Routin | 09/17/2016 | Lumbar | Results for this | | 3 VW | e | 9:19 AM | radiculopathy S/P | procedure are in the | | | | PST | lumbar fusion | results section. | + +--------+ + + + documented in this encounter Results XR Lumbar Spine 2 or 3 Vw (09/17/2016 9:19 AM PST) + + | Specimen | + + | | + + + + + | Narrative | Performed At | + + + | XR LUMBAR SPINE 2 OR 3 VW 09/17/2016 9:19 AM HISTORY: Postop. | [facility] | | COMPARISON: Multiple priors. FINDINGS: There is stable hardware | [facility] | | for posterior fusion from L1 through S1 with spacer hardware at L2-3 | [facility] | | through L4-5. A left lateral screw is observed of L4. The hardware | - IMAGING | | are intact. There is mild right curvature of the lumbar spine. | | | Extensive spondylosis is present. Bone mineralization is normal. | | | Vertebral body height are preserved with no evidence for compression | | | fractures. Mild disc narrowing are at L1-2 and L5-S1. Facet joints | | | are intact. Visualized ribs and pelvic osseous structures show no | | | acute findings. Mild atherosclerosis is seen. IMPRESSION - Stable | | | posterior fusion from L1 through S1. Dictated and Signed by: | | | Chema Dee MD Electronically signed: 09/17/2016 1:05 PM | | + + + + + | Procedure Note | + + | Benito, Rad Results In - 09/17/2016 1:08 PM PST XR LUMBAR SPINE 2 OR 3 VW 09/17/2016 | | 9:19 AMHISTORY: Postop.COMPARISON: Multiple priors.FINDINGS:There is stable hardware for | | posterior fusion from L1 through S1 with spacerhardware at L2-3 through L4-5. A left | | lateral screw is observed of L4. Thehardware are intact. There is mild right curvature | | of the lumbar spine.Extensive spondylosis is present. Bone mineralization is normal. | | Vertebral bodyheight are preserved with no evidence for compression fractures. Mild | | discnarrowing are at L1-2 and L5-S1. Facet joints are intact. Visualized ribs andpelvic | | osseous structures show no acute findings. Mild atherosclerosis is seen.IMPRESSION | | -Stable posterior fusion from L1 through S1.Dictated and Signed by: Chema Dee MD | | Electronically signed: 09/17/2016 1:05 PM | |Extensive spondylosis is present. Bone [...] Chema Dee MD | | Electronically signed: 09/17/2016 1:05 PM | + + + + + + + | Performing | Address | City/State/Zipcode | Phone Number | | Organization | | | | + + + + + | [facility] | [address] | [place] | [phone] | | [facility] | | [address] | | | - IMAGING | | | | + + + + + documented in this encounter Visit Diagnoses + + | Diagnosis | + + | Lumbar radiculopathy Thoracic or lumbosacral neuritis or radiculitis, unspecified | + + | S/P lumbar fusion Arthrodesis status | + + documented in this encounter"
--- OUTSIDE RECORDS SUMMARY | ~2020-06-17 | XMS | Encounter Summary ---
Demographics + + + | Address | [address] | | | [place] [address] | + + + | Home Phone | | + + + | Preferred Language | Unknown | + + + | Marital Status | | + + + | Adventism Affiliation | 1013 | + + + | Race | White | + + + | Ethnic Group | Not or | + + + Author + + + | Author | [facility] | | | and [place] | + + + | Organization | [facility] | | [...] [place] | | | | | [address] | | + + + + + | Mason Fleming | ECON | Unknown | | + + + + + Care Team Providers + +------+ + | Care Pan Pusher Name | Role | Phone | + [...] | | | | and/or Inj | [address] | | | | | | Major Joint | Phone: | | | | | | Right | [phone] | | | | | | | Fax: | | | | | | | [phone] | | +--------+--------+ + + + + Diagnostic/Screening (Routine) +--------+--------+ + + + + | Status | Reason | Specialty | Diagnoses / | Referred By | Referred To | | | | | Procedures | Contact | Contact | +--------+--------+ + + + + | Closed | | Radiology | Diagnoses | | | | | | | Ischial | Lyn, | | | | | | bursitis of | Aleja, | | | | | | left side | PA-C [address] | | | | | | Procedures | [address], | | | | | | [place] Asp | [address] | | | | | | and/or Inj | [place] | | | | | | Major Joint | [address] | | | | | | Left | Phone: | | | | | | | [phone] | | | | | | | Fax: | | | | | | | [phone] | | +--------+--------+ + + + + Reason for Visit Service/Procedure (Urgent) +--------+--------+ + + + + | Status | Reason | Specialty | Diagnoses / | Referred By | Referred To | | | | | Procedures | Contact | Contact | +--------+--------+ + + + + | Closed | | Radiology | Diagnoses | | [facility] | | | | | Ischial | [place], | [address] | | | | | bursitis of | Peter Cunha MD | [place], | | | | | left side | [address] | [place] | | | | | Procedures | [place] | [address] | | | | | [place] | [place] | Phone: | | | | | [place] | [address] | [phone] | | | | | IS | Phone: | Fax: | | | | | ASPIR&/INJ | [phone] | [phone] | | | | | MAJOR | Fax: | | | | | | JT/BURSA W/O | [phone] | | | | | | [place] | | | | | | | TRIAMCINOLON | | | | | | | E ACET INJ | | | | | | | NOS, 10 MG | | | | | | | CHG | | | | | | | FLUOROSCOPIC | | | | | | | GUIDANCE | | | | | | | NEEDLE | | | | | | | PLACEMENT | | | | | | | ADD ON Appt | | | | | | | 02/16/2018 | | | | | | | Left Ischial | | | | | | | Bursitis | | | +--------+--------+ + + + + Encounter Details +--------+ + + + + | Date | Type | Department | Care Team | Description | +--------+ + + + + | 02/16/ | Hospital | [facility] | Lyn, | Ischial bursitis of | | 2018 | Encounter | MED CTR XRAY [address] | MICHELLE Masterson [address] | left side; Primary | | | | [place] | [address], [address] | 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 | + +--------+ + + + | FL ASPIRATION | Routin | 02/16/2018 | Ischial bursitis | Results for this | | INJECTION MAJOR | e | 12:51 PM | of left side | procedure are in the | | JOINT LEFT | | PDT | | results section. [...] iohexol (OMNIPAQUE 300) 300 | Given | 02/16/20 | 4 mLs | | | | mg/mL injection 4 mL 4 mL, | | 18 1:00 | | | | | Intra-articular, ONCE, Wed | | PM PDT | | | | | 18 at 1315, For 1 dose | | | | | | + +--------+ +-------+------+------+ +---+---+ | | | +---+---+ + +-------+ +-------+---+---+ | lidocaine (PF) 1% injection 2 | Given | 02/17/20 | 2 mLs | | | | mL 2 mL, Intra-articular, ONCE, | | 18 1:05 | | | | | 02/16/18 at 1315, For 1 dose | | PM PDT | | | | + +-------+ +-------+---+---+ +---+---+ | | | +---+---+ + +-------+ +-------+---+ + | lidocaine buffered 1.3% | Given | 02/17/20 | 6 mLs | | Other | | injection 6 mL 6 mL, | | 18 12:58 | | | (Comment | | Intradermal, ONCE, Wed02/16/18 at | | PM PDT | | | ) | | 1315, For 1 dose | | | | | | + +-------+ +-------+---+ + +---+---+ | | | +---+---+ + +-------+ +-------+---+---+ | triamcinolone acetonide | Given | 02/17/20 | 80 mg | | | | (KENALOG-40) 40 mg/mL injection | | 18 1:05 | | | | | 80 mg 80 mg, Intra-articular, | | PM PDT | | | | | ONCE, Wed02/16/18 at 1315, For 1 | | | | | | | dose, Shake well. Not for IV | | | | | | | use., | | | | | | + +-------+ +-------+---+---+ +---+---+ | | | +---+---+ documented in this encounter"
--- OUTSIDE RECORDS SUMMARY | ~2020-06-17 | XMS | Encounter Summary ---
Demographics + + + | Address | [address] | | | [place] [address] | + + + | Home Phone | | + + + | Preferred Language | Unknown | + + + | Marital Status | | + + + | Episcopal Affiliation | 1013 | + + + | Race | White | + + + | Ethnic Group | Not or | + + + Author + + + | Author | [facility] | | | and [place] | + + + | Organization | [facility] | | [...] [place] | | | | | [address] | | + + + + + | Mason Fleming | ECON | Unknown | | + + + + + Care Team Providers + +------+ + | Care Gritting Machine Operator Name | Role | Phone | + +------+ + | Michael Grijalva | PCP | | | MD | | | + +------+ + Reason for Visit +--------+--------+ + | Reason | Onset | Comments | | | Date | | +--------+--------+ + | Other | 04/11/ | | | | 2020 | | +--------+--------+ + Encounter Details +--------+ + + + + | Date | Type | Department | Care Team | Description | +--------+ + + + + | 04/11/ | Telephone | [facility] [place] | Ana Cristina Tiwari | Other | | 2019 | | PH[address]SIATRY [address] | MICHELLE [address] | | | | | [address] [facility] [address] | [facility] | | | | | [place] | [address] [place] [address] | | | | | [address] | [address] | | | | | [phone] | | | +--------+ + + + [...] this encounter Miscellaneous Notes Telephone Encounter - Thanh Jacob Human Resources Support Specialist - 04/11/2020 12:01 PM PDTReferra l has been placed. Electronically signed by Thanh Jacob Human Resources Support Specialist at 0 12:01 PM PDTTelephone Encounter - Zina Allen - 04/11/2020 10:52 AM Salazar Fleming calling to set up SAME DAY procedure again, patient is scheduled with Shannan Tiwari on 05/02/2020 at 11:30 for office visit and hold has been placed on injection schedule at 1 pm please advise. doc umented in this encounter Plan of Treatment Not on filedocumented as of this encounter Visit Diagnoses Not on filedocumented in this encounter"
--- OUTSIDE RECORDS SUMMARY | ~2020-06-17 | XMS | Encounter Summary ---
Demographics + + + | Address | [address] | | | [place] [address] | + + + | Home Phone | | + + + | Preferred Language | Unknown | + + + | Marital Status | | + + + | Moravian Affiliation | 1013 | + + + | Race | White | + + + | Ethnic Group | Not or | + + + Author + + + | Author | [facility] | | | and [place] | + + + | Organization | [facility] | | | and [...] [place] | | | | | [address] | | + + + + + | Mason Fleming | ECON | Unknown | | + + + + + Care Team Providers + +------+ + | Care Financial Services Agent Name | Role | Phone | + +------+ + | Michael Grijalva | PCP | | | MD | | | + +------+ + Reason for Visit + +--------+ + | Reason | Onset | Comments | | | Date | | + +--------+ + | Diagnostic Order | 07/06/ | | | | 2016 | | + +--------+ + Encounter Details +--------+ + + + + | Date | Type | Department | Care Team | Description | +--------+ + + + + | 07/06/ | Telephone | [facility] [place] | Joshua Jorge MD | Diagnostic Order | | 2016 | | NEUROSURGERY [address] | [address] | | | | | [address] [facility] [address] | [place] [address] | | | | | [place] | [phone] | | | | | [address] | | | | | | [phone] | | | +--------+ + + + [...] encounter Miscellaneous Notes Telephone Encounter - Pepper Frye, Cellophane Bath Mixer - 07/06/2017 12:22 PM PSTFaxed BUN /Creat order to [facility] in [place], and faxed XR order to [facility]. E lectronically signed by Pepper Frye, Cellophane Bath Mixer at 07/06/2017 12:24 PM PSTdocument ed in this encounter Plan of Treatment Not on filedocumented as of this encounter Visit Diagnoses Not on filedocumented in this encounter"
--- OUTSIDE RECORDS SUMMARY | ~2020-06-17 | XMS | Encounter Summary ---
Demographics + + + | Address | [address] | | | [place] [address] | + + + | Home Phone [...] Author + + + | Author | [facility] | | | and [place] | + + + | Organization | [facility] | | [...] [place] | | | | | [address] | | + + + + + | Mason Fleming | ECON | Unknown | | + + + + + Care Team Providers + +------+ + | Care Anatomy Teacher Name | Role | Phone | + +------+ + | Michael Grijalva | PCP | | | MD | | | + +------+ + Reason for Visit + + + | Reason | Comments | + + + | Back Pain | Lower back pain; occasional numbess and pain in BLE. Wants | | | another injection | + + + Encounter Details +--------+---------+ + + + | Date | Type | Department | Care Team | Description | +--------+---------+ + + + | 09/19/ | Office | [facility] | Peter Haney | Lumbar radiculopathy | | 2013 | Visit | PH[address]SIATRY [address] | TMD [address] | (Primary Dx); | | | | [address] | [address] [place] | Degenerative disc | | | | [place] | [address] | disease; | | | | [address] | | Degenerative disc | | | | [phone] | | disease lumbar spine | | | | | | - he has | | | | | | degenerative changes | | | | | | at every level from | | | | | | L2 to S1.; | | | | | | OSTEOARTHRITIS, | | | | | | LUMBOSACRAL SPINE; | | | | | | Spinal stenosis of | | | | | | lumbar - worst at | | | | | | the L2-L3 and L3-L4 | | | | | | levels. This would | | | | | | be classified as | | | | | | severe. | +--------+---------+ + + + Social History [...] + + + | Blood Pressure | 121/63 | 09/19/2013 10:05 AM | | | | | PST | | + + + + + | Pulse | 62 | 09/19/2013 10:05 AM | | | | | PST | | + + + + + | Temperature | - | - | | + + + + + | Respiratory Rate | 16 | 09/19/2013 10:05 AM | | | | | PST | | + + + + + | Oxygen Saturation | - | - | | + + + + + | Inhaled Oxygen | - | - | | | Concentration | | | | + + + + + | Weight | 114.3 kg (252 lb) | 09/19/2013 10:05 AM | | | | | PST | | + + + + + | Height | 186.7 cm (6' 1.5") | 09/19/2013 10:05 AM | | | | | PST | | + + + + + | Body Mass Index | 32.8 | 09/19/2013 10:05 AM | | | | | PST | | + + + + + documented in this encounter Progress Notes Peter Haney MD - 09/19/2013 11:14 AM PST Subjective: Patient ID: Piter Fleming is a 68 y.o. male. Chief Complaint Patient presents with Back Pain Lower back pain; occasional numbess and pain in BLE. Wants another injection HPI The patient is being seen today in follow-up for complaints of low back pain as well as pain in the legs which occurs with standing too long or walking too far. He has been seen in my office on multiple occasions for the back pain. The patient's symptoms have been a chr onic issue for many years. He describes his symptoms as aching. His symptoms have been worse liliana recently. His symptoms worsen with standing up and walking. His symptoms improve with the use of hydr ocodone as well as with injections. He describes numbness in the thighs with prolonged rafi ding as well as in both feet from a peripheral neuropathy. He denies weakness. He denies bow el and bladder dysfunction. He also denies saddle anesthesia. Treatments for these complaints have included multiple prior injections, the use of hydroco done. He has been doing physical therapy but this has mostly been for the knees. Prior injections have included most bilateral L3-L4 epidural steroid injections which were performed in March of 2013. MRI and x-rays of the lumbar spine were again reviewed. Current Outpatient Prescriptions Medication Sig Dispense Refill Calcium Carbonate-Vitamin D (CALTRATE 600+D PO) TABS; Take 1 tablet by mouth twice emilie y Cholecalciferol (D3-50) 05500 UNITS CAPS Take one capsule by mouth [...] Take 1,000 mcg by mouth Daily. No Known Allergies Patient's medications, allergies, past medical, surgical, social and family histories were reviewed and updated as appropriate. Review of Systems No complaints other than those listed above in HPI. Blood pressure 121/63, pulse 62, resp. rate 16, height 1.867 m (6' 1.5"), weight 114.306 kg (252 lb). Body mass index is 32.80 kg/(m^2). Objective: Physical Exam Nursing note and vitals [...] He has normal strength. No cranial nerve deficit. + sensory deficit in the feet. He displays no Babinski's sign on the right side. He displays no Babinski's sign on the [...] The patient localized the majority of the back pain to the L5-S1 region. Lumbar facet loading was positive. Strength testing showed 5/5 strength throughout the lower extremities. The patient was able to heel and toe walk with s ome difficulty. There was no redness, effusion, warmth or joint line tenderness in the knee s or ankles. He did have surgical scars [...] 7. Tremor, essential Plan: 1. We discussed treatment options including injections in detail. I offered to repeat the b ilateral L3-L4 epidural steroid injections which have always helped in the past. This will be performed in the near future. If the patient continues to have back pain after the epidur al injection I would consider offering bilateral L5-S1 facet injections as he does have a lo t of pain at that level. 2. He is not yet ready to consider surgery. We did discuss the warning signs of potential neurologic injury and he will watch for that. At present the numbness in the legs is only i ntermittent with prolonged standing. He does not notice any focal weakness. 3. We discussed his use of hydrocodone/apap. It does not appear that his use of this medi cation is inappropriate. documented in this encounter Plan of Treatment Not on filedocumented as of this encounter Visit Diagnoses + + | Diagnosis | + + | Lumbar radiculopathy - Primary Thoracic or lumbosacral neuritis or radiculitis, | | unspecified | + + | Degenerative disc disease Degeneration of intervertebral disc, site unspecified | + + | Degenerative disc disease lumbar spine - he has degenerative changes at every level | | from L2 to S1. Degeneration of lumbar or lumbosacral intervertebral disc | + + | OSTEOARTHRITIS, LUMBOSACRAL SPINE Lumbosacral spondylosis without myelopathy | + + | Spinal stenosis of lumbar - worst at the L2-L3 and L3-L4 levels. This would be | | classified as severe. Spinal stenosis, lumbar region, without neurogenic claudication | + + documented in this encounter
--- OUTSIDE RECORDS SUMMARY | ~2020-06-17 | XMS | Encounter Summary ---
Demographics + + + | Address | [address] | | | [place] [address] | + + + | Home Phone [...] Author | [facility] | | | and [...] [place] | | | | | [address] | | + + + + + | Mason Fleming | ECON | Unknown | | + + + + + Care Team Providers + +------+ + | Care Food Sampler Name | Role | Phone | + +------+ + | Michael Grijalva | PCP | | | MD | | | + +------+ + Encounter Details +--------+ + + + + | Date | Type | Department | Care Team | Description | +--------+ + + + + | 08/14/ | Abstract | [facility] | Hollis Seaman, | | | 2018 | | ORTHOPEDIC SURGERY | [address] | | | | | [address] | [place] | | | | | [place] | [address] | | | | | [address] | | | | | | [phone] | | | +--------+ + + + [...] | + +--------+ + + + | EXTERNAL LAB: CBC | Routin | 08/11/2019 | | Results for this | | | e | | | procedure are in the | | | | | | results section. | + +--------+ + + + | EXTERNAL LAB: EGFR | Routin | 08/11/2019 | | Results for this | | | e | | | procedure are in the | | | | | | results section. | + +--------+ + + + | EXTERNAL LAB: | Routin | 08/11/2019 | | Results for this | | CREATININE | e | | | procedure are in the | | | | | | results section. | + +--------+ + + + | URINALYSIS, | Routin | 08/11/2019 | | Results for this | | MICROSCOPIC ONLY | e | | | procedure are in the | | | | | | results section. | + +--------+ + + + | BASIC METABOLIC | Routin | 08/11/2019 | | Results for this | | PANEL | e | | | procedure are in the | | | | | | results section. | + +--------+ + + + documented in this encounter Results Urinalysis, Microscopic Only (08/11/2019) + + + + + + | Component | Value | Ref Range | Performed | Pathologist | | | | | At | Signature | + + + + + + | Color, | Yellow | Light Yellow, | | | | Urine | | Yellow | | | + + + + + + | Clarity, | Clear | | | | | Urine | | | | | + + + + + + | Specific | 1.008 | 1.001 - 1.030 | | | | [place], | | | | | | Urine | | | | | + + + + + + | pH, Urine | 6.0 | 5.0 - 8.0 | | | + + + + + + | Glucose, | Negative | Negative | | | | Urine | | | | | + + + + + + | Ketones, UA | negative | | | | + + + + + + | Bilirubin, | Negative | Negative | | | | Urine | | | | | + + + + + + | Blood, | Small (A) | Negative | | | | Urine | | | | | + + + + + + | Nitrite, | Negative | Negative | | | | Urine | | | | | + + + + + + | Urobilinoge | Negative | < 0.2 mg/dL, | | | | n, Urine | | 1.0 mg/dL, 4.0 | | | | | | mg/dL, Normal, | | | | | | 1.0 E.U./dL, | | | | | | 0.2 E.U./dL, | | | | | | 0.2 mg/dL, | | | | | | Negative, 1 | | | | | | mg/dL, <2.0 | | | | | | mg/dL | | | + + + + + + | Leukocyte | Negative | Negative | | | | Esterase, | | | | | | UA, POC | | | | | + + + + + + | Casts UA | 0.0 | /hpf | | | + + + + + + | WBC CASTS | 0 | /LPF | | | | UA | | | | | + + + + + + | RBC CASTS | 2 | /LPF | | | | UA | | | | | + + + + + + | EPITHELIAL | 0 | /LPF | | | | CASTS UA | | | | | + + + + + + | CRYSTAL UA | 0 | | | | + + + + + + | Bacteria, | 0 | | | | | UA | | | | | + + + + + + | Protein, | Negative | Negative | | | | UA, POC | | | | | + + + + + + + + | Specimen | + + | Urine | + + External Lab: CBC (08/11/2019) + + + + + + | Component | Value | Ref Range | Performed | Pathologist | | | | | At | Signature | + + + + + + | HGB, | 13.0 (A) | 13.5 - 18 | | | | External | | | | | + + + + + + Basic Metabolic Panel (08/11/2019) + +-------+ + + + | Component | Value | Ref Range | Performed | Pathologist | | | | | At | Signature | + +-------+ + + + | Na | 137 | 132 - 143 | | | | | | mmol/L | | | + +-------+ + + + | K | 4.0 | 3.2 - 5.7 | | | | | | mmol/L | | | + +-------+ + + + | Cl | 98 | 95 - 112 mmol/L | | | + +-------+ + + + | Carbon | 28 | 19 - 31 | | | | Dioxide, WB | | | | | + +-------+ + + + | Anion Gap | 15 | 7 - 21 mmol/L | | | + +-------+ + + + | Glucose | 91 | 70 - 100 mg/dL | | | + +-------+ + + + | Calcium | 9.9 | 8.5 - 10.3 | | | + +-------+ + + + | Urea | 20 | 6 - 23 | | | | Nitrogen | | | | | | Clearance | | | | | + +-------+ + + + | Creatinine | 0.92 | 0.7 - 1.18 | | | + +-------+ + + + | GFR | 81 | | | | | ESTIMATE | | | | | | (REF) | | | | | + +-------+ + + + | BUN/Creatin | 21.7 | 6.0 - 28.6 | | | | ine Ratio | | | | | + +-------+ + + + + + | Specimen | + + | Blood | + + External Lab: eGFR (08/11/2019) + +-------+ + + + | Component | Value | Ref Range | Performed | Pathologist | | | | | At | Signature | + +-------+ + + + | eGFR, | 81 | | | | | External | | | | | + +-------+ + + + + + | Specimen | + + | Blood | + + External Lab: Creatinine (08/11/2019) + +-------+ + + + | Component | Value | Ref Range | Performed | Pathologist | | | | | At | Signature | + +-------+ + + + | Creatinine, | 0.92 | 0.7 - 1.18 | | | | External | | | | | + +-------+ + + + + + | Specimen | + + | Blood | + + documented in this encounter Visit Diagnoses Not on filedocumented in this encounter"
--- OUTSIDE RECORDS SUMMARY | ~2020-06-17 | XMS | Encounter Summary ---
Demographics + + + | Address | [address] | | | [place] [address] | + + + | Home Phone | | + + + | Preferred Language | Unknown | + + + | Marital Status | | + + + | Taoist Affiliation | 1013 | + + + | Race | White | + + + | Ethnic Group | Not or | + + + Author + + + | Author | [facility] | | | and [place] | + + + | Organization | [facility] | | [...] [place] | | | | | [address] | | + + + + + | Mason Fleming | ECON | Unknown | | + + + + + Care Team Providers + +------+ + | Care Contractor General Engineering Name | Role | Phone | + +------+ + | Michael Grijalva | PCP | | | MD | | | + +------+ + Reason for Visit + +--------+ + | Reason | Onset | Comments | | | Date | | + +--------+ + | Medication Question | 07/15/ | | | | 2016 | | + +--------+ + Encounter Details +--------+ + + + + | Date | Type | Department | Care Team | Description | +--------+ + + + + | 07/15/ | Telephone | [facility] | Joshua Jorge MD | Medication Question | | 2016 | | NEUROSURGERY [address] | [address] | | | | | [place] [facility] [address] | [place] [address] | | | | | [place] | [phone] | | | | | [address] | | | | | | [phone] | | | +--------+ + + + [...] Telephone Encounter - Jun Stout PA-C - 08/03/2017 12:40 PM PSTDr. yam would lik e additional imaging. We would like to order a CT scan of his lumbar spine. Where with the patient like to complete his CT scan? elephone Encounter - Pepper Jimenez Library Sales Consultant - 07/26/2017 8:35 AM PSTLumbar MRI ready for review on I-site. elephone Encounter - Clarisa Wright Medical A ssistisamar - 07/23/2017 12:08 PM PSTCalled [facility] completed [facility]. Radiologist stated that patient completed MRI and she will push imaging to I-site. Elec tronically signed by Adrianna Godinez at 07/23/2017 12:17 PM PSTTelephone En counter - Pepper Frye Library Sales Consultant - 07/19/2017 1:59 PM PSTRec'd Creat and BUN sandra robison from [facility]. Faxed to [facility] Diagnostic Imaging department - patient has MRI scheduled today with contrast elephone Encounter - Pepper Frye Library Sales Consultant - 1:45 PM PSTReturned the call to Grupo @ [facility] diagnostic imaging - She is needing a BUN/Creat order for patient to complete prior to MRI scheduled at [facility] t his Thursday 07/19. Corinna Escalera RN has agreed to enter the order, and I will fax to Denita kumar en it is signed. Patient was called with an update that he will need to have the labs complete before 07/19 MRI - He confirms he will be there 'first thing in the morning.' Postponed current reminder to next week - Need to have images pushed to ISite when complete d ouis one Encounter - Jack Jara - 07/15/2017 12:03 PM Cara from [place] he is looking for labs orders, the patient is scheduled for Wednesday. Please call her back at [phone] signed by Jack Jara at 07/15/2017 12:07 PM Aline barahona in this encounter Plan of Treatment Not on filedocumented as of this encounter Visit Diagnoses Not on filedocumented in this encounter"
--- OUTSIDE RECORDS SUMMARY | ~2020-06-17 | XMS | Encounter Summary ---
Demographics + + + | Address | [address] | | | [place] [address] | + + + | Home Phone | | + + + | Preferred Language | Unknown | + + + | Marital Status | | + + + | Muslim Affiliation | 1013 | + + + | Race | White | + + + | Ethnic Group | Not or | + + + Author + + + | Author | [facility] | | | and [place] | + + + | Organization | [facility] | | | and [place] | + [...] [place] | | | | | [address] | | + + + + + | Mason Fleming | ECON | Unknown | | + + + + + Care Team Providers + +------+ + | Care Tour Driver Name | Role | Phone | + +------+ + | Michael Grijalva | PCP | | | MD | | | + +------+ + Reason for Visit + + + | Reason | Comments | + + + | Back Pain | Low back pain that radiates down both legs | + + + Encounter Details +--------+---------+ + + + | Date | Type | Department | Care Team | Description | +--------+---------+ + + + | 07/07/ | Office | [facility] | Peter Haney | Spinal stenosis of | | 2011 | Visit | PHYSIATRY [address] | [address] | lumbar - worst at | | | | [address] [place] | the L2-L3 and L3-L4 | | | | [place] | [address] | levels. This would | | | | [id number] | | be classified as | | | | [phone] | | severe.; | | | | | | Degenerative disc | | | | | | disease lumbar spine | | | | | | - he has | | | | | | degenerative changes | | | | | | at every level from | | | | | | L2 to S1.; | | | | | | Peripheral | | | | | | neuropathy | +--------+---------+ + + + Social History [...] + + + | Blood Pressure | 119/55 | 07/07/2012 9:46 AM | | | | | PST | | + + + + + | Pulse | 48 | 07/07/2012 9:46 AM | | | | | PST [...] Weight | 106.6 kg (235 lb) | 07/07/2012 9:46 AM | | | | | PST | | + + + + + | Height | 186.7 cm (6' 1.5") | 07/07/2012 9:46 AM | | | | | PST | | + + + + + | Body Mass Index | 30.58 | 07/07/2012 9:46 AM | | | | | PST | | + + + + + documented in this encounter Patient Instructions Patient Instructions Peter Haney MD - 07/07/2012 10:10 AM PSTFollow[facility] your scheduled procedure to [...] our off ice. Please also provide a hearse driver to take you home on the day of the procedure. documented in this encounter Progress Notes Peter Haney MD - 07/07/2012 9:58 AM PST Subjective: Patient ID: Piter Fleming is a 67 y.o. male. Chief Complaint Patient presents with Back Pain Low back pain that radiates down both legs HPI The patient is being seen today in the office for a follow-up visit. He is complaining of continued low back pain that occasionally radiates down into the legs, especially on the right leg. He has received multiple injections by me with good benefit. The injections have been bilateral L3-L4 TFESI. The last injections were in November of this year. The patient d id have a total knee replacement on June 21 and has been walking with a walker. He fe els that this has really caused an increase in his back pain. The patient has had a prior M RI and this was reviewed in detail today with the patient. Patient's medications, allergies, past medical, surgical, social and family histories were reviewed and updated as appropriate. Current Outpatient Prescriptions on File Prior to Visit Medication Sig Dispense Refill Ephedrine-Guaifenesin (PRIMATENE ASTHMA) 12.5-200 MG TABS 2 to 3 tablets daily vitamin B-12 (CYANOCOBALAMIN) 1000 MCG tablet Take 1,000 mcg by mouth Daily. Cholecalciferol (D3-50) 78491 UNITS CAPS Take one capsule by mouth twice weekly LevOCARNitine L-Tartrate (L-CARNITINE) 500 MG CAPS Take 500 mg by mouth Daily. Calcium Carbonate-Vitamin D (CALTRATE 600+D PO) TABS; Take 1 tablet by mouth twice emilie y propranolol (INDERAL) 40 mg tablet Take 40 mg by mouth Daily. topiramate (TOPAMAX) 25 mg tablet 1/2 tablet at at bedtime for 3 nights, then build up per 's written schedule to 2 tablets at bedtime for tremor multivitamin (THERAGRAN) per tablet Take 1 tablet by mouth daily iron polysaccharides (NU-IRON) 150 MG capsule Take 150 mg by mouth Daily. levothyroxine (LEVOTHROID) 200 mcg tablet Take 200 mcg by mouth Daily. fluocinonide (LIDEX) 0.05 % ointment two times a day Glucosamine HCl (GLUCOSAMINE MAXIMUM STRENGTH) 1500 MG TABS citalopram (CELEXA) 40 mg tablet Take 40 mg by mouth Daily. tamsulosin (FLOMAX) 0.4 mg CAPS Take 0.4 mg by mouth Daily. theophylline (UNIPHYL) 400 MG 24 hr tablet Take 400 mg by mouth Daily. HYDROcodone-acetaminophen (NORCO) 10-325 mg per tablet as needed liothyronine (CYTOMEL) 50 MCG tablet two daily primidone (MYSOLINE) 50 mg tablet Take 4 by mouth daily at bedtime for 5 days then incr ease to 5 by mouth daily at bedtime for tremors sildenafil (VIAGRA) 100 MG tablet Take 100 mg by mouth nightly as needed. Review of Systems He has had recent kidney stones, pain from the surgery and a recent rash. He denies any re cent fever, chills, nausea, vomiting, chest pain or shortness of breath. He does have the b ack pain as noted above in HPI. Objective: Physical Exam Nursing note and vitals [...] place, and time. He has normal strength. A sensory deficit (Bottom of the feet and toes) is present. No cranial nerve deficit. He dis plays no Babinski's sign on the right side. He displays no Babinski's sign on the left side. Reflex Scores: Patellar reflexes are 0 on the left side. Achilles reflexes are 0 on the right side and 0 on the left side. Right knee was not tested due to recent surgery. Skin: Skin is warm, dry and intact. Rash (Diffuse rash over torso) noted. No abrasion, no b ruising, no ecchymosis and no laceration noted. Psychiatric: He has a normal mood and affect. His speech is normal and behavior is normal. Thought content normal. Cognition and memory are normal. Musculoskeletal: Straight leg raise and slump-sit are negative. Memo's maneuver and im pingement testing were negative for any groin pain. There was significant tenderness to pa lpation over the sacral sulci, but not over the greater trochanters. The patient localized the majority of the pain to the lower lumbar region and down into the buttocks and legs bila terally. He did also localize the SI region bilaterally as an area of significant pain. Petra mbar facet loading was negative. Strength testing showed 5/5 strength throughout the lower extremities. The patient was able to heel and toe walk without difficulty. There was no re dness, effusion, warmth or joint line tenderness in the knees or ankles. Assessment: 1. Spinal stenosis of lumbar - worst at the L2-L3 and L3-L4 levels. This would be classifi ed as severe. 2. Degenerative disc disease lumbar spine - he has degenerative changes at every level from L2 to S1. 3. Peripheral neuropathy 4. Recent right total knee arthroplasty. 5. Possible sacroiliitis Plan: 1. The patient has done very well with epidural steroid injections in the past. He is int erested in repeating the injections. He will have repeat injections bilaterally at L3-L4 af ter he is 6 weeks post-op for his knee replacement. 2. If he does not get good relief with the epidural steroid injections I would consider of fering him sacroiliac joint injections. 3. The patient is currently enrolled in physical therapy for his knee. I also encouraged him to continue with his home exercise program for his low back. 4. The patient will followup with me at the time of the injections and thereafter as sebastian pickard documented in this encounter Plan of Treatment [...] lumbosacral intervertebral disc | + + | Peripheral neuropathy Unspecified hereditary and idiopathic peripheral neuropathy | + + documented in this encounter
--- OUTSIDE RECORDS SUMMARY | ~2020-06-17 | XMS | Encounter Summary ---
Demographics + + + | Address | [address] | | | [place] [address] | + + + | Home Phone [...] + | Author | [facility] | | | and [place] [...] [place] | | | | | [address] | | + + + + + | Mason Fleming | ECON | Unknown | | + + + + + Care Team Providers + +------+ + | Care Email Production Specialist Name | Role | Phone | [...] | | | | scoliosis, | | [place], [place] | | | | | site | | [address] | | | | | unspecified | | Phone: | | | | | Other | | [phone] | | | | | secondary | | Fax: | | | | | scoliosis, | | [phone] | | | | | lumbar | | | | | | | region | | | | | | | [[id number]] | | | | | | | Procedures | | | | | | | NE | | | | | | | [...] + + + + | 08/10/ | Anesthesia | LAURA SANTILLAN | Narendra Manzo | | | 2016 | Event | [facility] | MD Josh [address] | | | | | [address] | [address] [place] | | | | | [place], [place] | [place] [address] | | | | | [address] | | | | | [phone] | | | | | | | Kleber Reed, | | | | | | [address] | | | | | | [place], [place] | | | | | | [address] | | | | | | | | +--------+ + + + + Anesthesia Record + + + + + | Procedure Name | Responsible | Anesthesia Start | Anesthesia Stop Time | | | Anesthesiologist | Time | | + + + + + | L2-3, L3-4, L4-5 | Narendra Manzo, | 08/10/16 1239 | 08/10/16 1821 | | Lateral Anterior | MD | | | | Interbody Fusion, | | | | | L5-S1 Transforaminal | | | | | Lumbar Interbody | | | | | Fusion, L3-4 | | | | | Decompression (Left | | | | | Spine Lumbar) | | | | + + + + + +----+---+ + + | Da | T | Event | Comment | | te | i | | | | | m | | | | | e | | | +----+---+ + + | 12 | 1 | | | | /1 | 2 | | | | 2/ | 0 | | | | 20 | 6 | | | | 16 | | | | +----+---+ + + | | 1 | An Checkout | Pre-use anesthesia machine/equipment checkout. | | | 2 | | | | | 0 | | | | | 6 | | | +----+---+ + + | | 1 | An Start | Reassessment prior to anesthesia induction/procedure. | | | 2 | | | | | 3 | | | | | 9 | | | +----+---+ + + | | 1 | Antibiotic | | | | 2 | Given | | | | 4 | | | | | 1 | | | +----+---+ + + | | 1 | Preoxygenat | | | | 2 | ed | | | | 4 | | | | | 4 | | | +----+---+ + + | | 1 | An | | | | 2 | Induction | | | | 4 | | | | | 7 | | | +----+---+ + + | | 1 | An | | | | 2 | Intubation | | | | 4 | | | | | 8 | | | +----+---+ + + | | 1 | AN Bite | | | | 2 | Block | | | | 4 | | | | | 9 | | | +----+---+ + + | | 1 | [place] | | | | 2 | 43-degrees | | | | 5 | | | | | 8 | | | +----+---+ + + | | 1 | First | | | | 3 | Inc/Proc St | | | | 0 | | | | | 7 | | | +----+---+ + + | | 1 | An Data Art | Change to prone position | | | 4 | | | | | 3 | | | | | 0 | | | +----+---+ + + | | 1 | [place] off | | | | 8 | | | | | 1 | | | | | 4 | | | +----+---+ + + | | 1 | AN No | TOF 4/4 with sustained tetanus. | | | 8 | Residual | | | | 1 | NMB | | | | 4 | | | +----+---+ + + | | 1 | Breathing | | | | 8 | Spontaneous | | | | 1 | ly | | | | 4 | | | +----+---+ + + | | 1 | Oropharynx | | | | 8 | Suctioned | | | | 1 | | | | | 4 | | | +----+---+ + + | | 1 | Moving | | | | 8 | Purposefull | | | | 1 | y | | | | 4 | | | +----+---+ + + | | 1 | Extubated | | | | 8 | Awake | | | | 1 | | | | | 4 | | | +----+---+ + + | | 1 | An Stop | Patient handed off to recovery nurse. | | | 2 | | | | | 1 | | | +----+---+ + + +------+ | Meds | +------+ + + + | Name | Total | + + + | midazolam | 2 mg | + + + | lidocaine 2% (PF) | 60 mg | + + + | dexamethasone | 10 mg | + + + | HYDROmorphone | 6 mg | + + + | dexmedetomidine (PRECEDEX) 4 | 100 mcg | | mcg/mL in sodium chloride 0.9% | | | 100 mL infusion | | + + + | magnesium sulfate | 2 g | + + + | glycopyrrolate | 0.2 mg | + + + | propofol | 200 mg | + + + | ceFAZolin (ANCEF, KEFZOL) 2 g in | 4 g | | sodium chloride 0.9% 50 mL IVPB | | + + + | succinylcholine | 100 mg | + + + | ondansetron (ZOFRAN) injection 4 | 4 mg | | mg | | + + + | ePHEDrine | 50 mg | + + + | ketamine | 150 mg | + + + | lactated ringers (LR) infusion | 3,200 mL | + + + + + | Name | + + | N2O Flow Rate (L/Min) | + + | O2 Flow Rate (L/Min) | + + | Insp O2 | + + | Exp SEV | + + | Exp CARLOS | + + | Air Flow Rate (L/Min) | + + + + | No blood administrations on file. | + + +--------+ + + + | Type | Details | Placement | Removal | +--------+ + + + | Airway | Placement Date: 08/10/16; | 08/10/16 1248 by | 08/10/161813 by Narendra | | | Placement Time: 124; Mask | [place], | Josh Manzo MD | | | Ventilation: EZ; Airway Grade: | MD | | | | 2a; External Maneuvers: CP; | | | | | Successful Technique: video scope | | | | | ([place]); Laryngoscope Blade | | | | | Size: 3; Airway Type: | | | | | endotracheal, oral, cuffed, | | | | | fenestrated, disposable; Size: 7; | | | | | Position: Right; Airway Tube | | | | | Secured At: 22; Tube Reference | | | | | Point: teeth, secure and patent; | | | | | Trauma: none; Other Equipment: | | | | | stylette; Placement Check: | | | | | bilateral chest rise, breath | | | | | sounds equal bilaterally, exhaled | | | | | CO2 detection device, video | | | | | laryngoscope; Removal Date: | | | | | 08/10/16; Removal Time: 1813 | | | +--------+ + + + | Urethr | 08/10/16; 1248; indicated due to | 08/10/16 1248 by | 08/11/16 1503 by | | al | specific surgical procedure; | Ava Hoffman | Nessa E | | Cathet | Smallest Catheter, Perineum | LEONARD Garzon | LEONARD Carlton | | er | cleaned, Second person present; | | | | | All elements; All elements; | | | | | indwelling double lumen catheter; | | | | | 100% silicone; 16; None; 1; 10; | | | | | 10; none (Patient under general | | | | | anethesia); drainage bag to | | | | | dependent drainage; urethral | | | | | catheter removed, tubing intact; | | | | | 08/11/16; 1503 | | | +--------+ + + + | Read | 08/10/16; 1334; back; healing | 08/10/16 1334 by | 08/13/16 1200 by | | only - | within expectations; 08/13/16; | Ava Hoffman | Mallory L | | | 1200 | LEONARD Garzon | LEONARD Fernandez | | Incisi | | | | | on | | | | +--------+ + + + | Read | 08/10/16; 1334; Left; flank; | 08/10/16 1334 by | 08/13/16 1300 by | | only - | healing within expectations; | Ava Hoffman | Mallory L | | | 08/13/16; 1300 | LEONARD Garzon | LEONARD Fernandez | | Incisi | | | | | on | | | | +--------+ + + + | Drain/ | 08/10/16; 1604; #1; Left; medial; | 08/10/16 1604 by | 08/13/16 1200 by | | Device | lumbar spine; collapsible closed | Syeda Lopez RN | Mallory Goldberg | | Site | device; 10fr round roxanne; tip | | LEONARD Fernandez | | | intact, per protocol/policy; | | | | | short term use; 08/13/16; 1200 | | | +--------+ + + + | Drain/ | 08/10/16; 1605; #2; Left; lower; | 08/10/16 1605 by | 08/13/16 1200 by | | Device | lumbar spine; collapsible closed | Syeda Lopez RN | Mallory L | | Site | device; 10fr round ROXANNE; tip | | LEONARD Fernandez | | | intact, per protocol/policy; | | | | | short term use; 08/13/16; 1200 | | | +--------+ + + + [...] encounter OR Notes Anesthesia Postprocedure Evaluation - Narendra Manzo MD - 08/10/2016 6:22 PM PSTForm atting of this note might be different from the original. ANESTHESIA POSTANESTHESIA EVALUATION Piter Fleming 71 y.o. male 1945 [id number] Procedure(s) L2-3, L3-4, L4-5 Lateral Anterior Interbody Fusion, L5-S1 Transforaminal Lumb ar Interbody Fusion, L3-4 Decompression (Left Spine Lumbar) Cooperates? Yes Mental Status Performs simple tasks. Respiratory Satisfactory - Airway patent (self maintained). Cardiovascular Satisfactory Blood pressure and heart rate acceptable Temperature Satisfactory Pain Unsatisfactory - Continue titration of ordered pain medications N/V Control Satisfactory Hydration Satisfactory No signs of dehydration Complications None apparent Filed Vitals: 08/10/16 1028 BP: 163/70 Pulse: 58 Temp: 36.6 C (97.9 F) Resp: 18 SpO2: 97% Electronically signed by Narendra Manzo MD 08/10/2016 18:22 [facility] nesthesia Prepro cedure Evaluation - Narendra Manzo MD - 08/10/2016 11:41 AM PST ANESTHESIA PREANESTHESIA EVALUATION Piter Fleming 71 y.o. male 1945 [id number] Procedure(s): L2-3, L3-4, L4-5 Lateral Anterior Interbody Fusion, L5-S1 Transforaminal Lumb ar Interbody Fusion, L3-4 Decompression (Left ) Medical history, anesthesia, medications, allergy, NPO status verified histories reviewed. ECG reviewed. Labs reviewed. Review of Systems / Med History Anesthesia History No anesthesia complications. (-) PONV, malignant hyperthermia Cardiovascular Results for orders placed or performed in visit on 08/06/16 -ECG 12 lead Result Value Ref Ra nge INTERPRETATION TEXT Sinus bradycardia with sinus arrhythmia with 1st degree AV block Right bundle branch block Left anterior fascicular block Bifascicular block T wave abnormality, consider inferior ischemia Abnormal ECG No previous ECGs available Confirmed by AISLINN MCCORMICK MD ([id number]) on 08/07/2016 7:08:18 AM . (+) hypertension, pulmonary hypertension(-) past WI, congenital heart disease , Exercise to lerance >4 METS Pulmonary (+) asthma(+) sleep apnea: known Neurology (+) scoliosis, back pain, chronic pain Psychology (+) depression Renal Negative except where noted below. (+) renal/ureteral stones Gastrointestinal/Hepatic (+) hyperlipidemia Endocrine (+) hypothyroidism Other Negative except where noted below. Lab Results Component Value Date WBC 9.0 08/06/2016 HGB 13.2* 08/06/2016 HCT 39.3* 08/06/2016 MCV 102.5* 08/06/2016 PLT 240 08/06/2016 Lab Results Component Value Date CREA 0.85 08/06/2016 BUN 16 08/06/2016 NA 140 08/06/2016 K 3.9 08/06/2016 CL 107 08/06/2016 CO2 26 08/06/2016 . Cancer Negative except where noted below. Physical Exam Airway MP II, TM >3 FB, Mouth opening >2 FB. Neck: full ROM, extends >30 degrees. Jaw protrus ion normal. Dental Grossly normal except where noted below.; (+) Age appropriate dentition. CV Rhythm regular. Rate Normal. (-) murmur, carotid bruit, peripheral edema, JVD and weak pulses. Pulm Clear to auscultation bilaterally. (-) wheezing, rhonchi, decreased breath sounds, rales and stridor. Neuro Grossly normal. Anesthesia Plan ASA 3 Type: General. Induction: Intravenous. Potential problems: None anticipated. Monitors: Standard ASA monitors. Consent statement:Anesthetic plan, alternatives, risks and benefits discussed with patient and family. Risks discussed included (but were not limited to): dental injury, pain, sore throat, infec tion, voice injury, muscle aches, nausea, respiratory events, . Consenting person understands and agrees to proceed. PARQ. Risks and benefits of general anesthetic discussed with patient and available family member s. They agree to proceed, answered all questions.. documented in [facility] s encounter Miscellaneous Notes Addendum Note - Narendra Manzo MD - 08/10/2016 7:44 PM PSTFormatting of this note mi ght be different from the original. Addendum created 08/10/161943 by Narendra Manzo MD Modules edited: Orders documented in th is encounter Plan of Treatment Not on filedocumented as of this encounter Visit Diagnoses Not on filedocumented in this encounter Administered Medications + +--------+ +------+------+------+ | Medication Order | MAR | Action | Dose | Rate | Site | | | Action | Date | | | | + +--------+ +------+------+------+ | ceFAZolin (ANCEF, KEFZOL) 2 g | Bolus | 08/10/20 | 2 g | | | | in sodium chloride 0.9% 50 mL | | 16 4:52 | | | | | IVPB 2 g, Intravenous, | | PM PST | | | | | Administer over 30 Minutes, Prior | | | | | | | to Incision, Starting Mon | | | | | | | 08/10/16 at 1016, For 1 dose, | | | | | | | Administer within 1 hour of | | | | | | | surgical incision., Pre-op, | | | | | | | Indications: Surgical Prophylaxis | | | | | | + +--------+ +------+------+------+ +---------+ +-----+---+---+ | New Bag | 08/10/20 | 2 g | | | | | 16 12:41 | | | | | | PM PST | | | | +---------+ +-----+---+---+ +---+---+ | | | +---+---+ + +-------+ +-------+---+---+ | dexamethasone (DECADRON) 10 | Given | 08/10/20 | 10 mg | | | | mg/mL injection Intravenous, | | 16 12:47 | | | | | PRN, Starting 08/10/16 at | | PM PST | | | | | 1247, Anesthesia Intra-op | | | | | | + +-------+ +-------+---+---+ +---+---+ | | | +---+---+ + +---------+ +--------+ +---+ | dexmedetomidine (PRECEDEX) 4 | New Bag | 08/10/20 | 100 | 25 mL/hr | | | mcg/mL in sodium chloride 0.9% | | 16 1:00 | mcg/hr | | | | 100 mL infusion 400 mcg, | | PM PST | | | | | CONTINUOUS PRN, Starting Mon | | | | | | | 08/10/16 at 1300, Anesthesia | | | | | | | Intra-op | | | | | | + +---------+ +--------+ +---+ +---+---+ | | | +---+---+ + +-------+ +-------+---+---+ | ePHEDrine 50 mg/mL injection | Given | 08/10/20 | 10 mg | | | | PRN, Starting 08/10/16 at | | 16 4:00 | | | | | 1301, Anesthesia Intra-op | | PM PST | | | | + +-------+ +-------+---+---+ +-------+ +-------+---+---+ | Given | 08/10/20 | 10 mg | | | | | 16 2:40 | | | | | | PM PST | | | | +-------+ +-------+---+---+ | Given | 08/10/20 | 10 mg | | | | | 16 2:38 | | | | | | PM PST | | | | +-------+ +-------+---+---+ +---+---+ | | | +---+---+ + +-------+ +--------+---+---+ | glycopyrrolate (JOSE ANTONIO) | Given | 08/10/20 | 0.2 mg | | | | injection Intravenous, PRN, | | 16 1:02 | | | | | Secretions, Starting 08/10/16 | | PM PST | | | | | at 1302, Anesthesia Intra-op | | | | | | + +-------+ +--------+---+---+ +---+---+ | | | +---+---+ + +-------+ +------+---+---+ | HYDROmorphone (DILAUDID) 2 | Given | 08/10/20 | 1 mg | | | | mg/mL injection PRN, Pain, | | 16 5:55 | | | | | Starting 08/10/16 at 1246, | | PM PST | | | | | Anesthesia Intra-op | | | | | | + +-------+ +------+---+---+ +-------+ +------+---+---+ | Given | 08/10/20 | 1 mg | | | | | 16 4:50 | | | | | | PM PST | | | | +-------+ +------+---+---+ | Given | 08/10/20 | 1 mg | | | | | 16 2:51 | | | | | | PM PST | | | | +-------+ +------+---+---+ +---+---+ | | | +---+---+ + +-------+ +-------+---+---+ | ketamine 50 mg/mL injection | Given | 08/10/20 | 10 mg | | | | PRN, Starting 08/10/16 at | | 16 3:45 | | | | | 1254, Anesthesia Intra-op | | PM PST | | | | + +-------+ +-------+---+---+ +-------+ +-------+---+---+ | Given | 08/10/20 | 10 mg | | | | | 16 3:37 | | | | | | PM PST | | | | +-------+ +-------+---+---+ | Given | 08/10/20 | 10 mg | | | | | 16 3:31 | | | | | | PM [...] +---+---+ + +-------+ +-------+---+---+ | lidocaine (PF) 2% injection | Given | 08/10/20 | 60 mg | | | | PRN, Starting 08/10/16 at | | 16 12:47 | | | | | 1247, Anesthesia Intra-op | | PM PST | | | | + +-------+ +-------+---+---+ +---+---+ | | | +---+---+ + +---------+ +--------+---------+---+ | magnesium sulfate 500 mg/mL | New Bag | 08/10/20 | 2 g/hr | 4 mL/hr | | | injection CONTINUOUS PRN, | | 16 1:00 | | | | | Starting 08/10/16 at 1300, | | PM PST | | | | | Anesthesia Intra-op | | | | | | + +---------+ +--------+---------+---+ +---+---+ | | | +---+---+ + +-------+ +------+---+---+ | midazolam (VERSED) 1 mg/mL | Given | 08/10/20 | 2 mg | | | | injection Intravenous, PRN, | | 16 12:39 | | | | | Anxiety, Starting 08/10/16 at | | PM PST | | | | | 1239, Anesthesia Intra-op | | | | | | + +-------+ +------+---+---+ +---+---+ | | | +---+---+ + +-------+ +------+---+---+ | ondansetron (ZOFRAN) injection | Given | 08/10/20 | 4 mg | | | | 4 mg 4 mg, Intravenous, ONCE | | 16 12:47 | | | | | PRN, Nausea, Starting Mon | | PM PST | | | | | 08/10/16 at 1016, For 1 dose, | | | | | | | Pre-op | | | | | | + +-------+ +------+---+---+ +---+---+ | | | +---+---+ + +-------+ +-------+---+---+ | propofol (DIPRIVAN) injection | Given | 08/10/20 | 50 mg | | | | Intravenous, PRN, Starting Mon | | 16 1:08 | | | | | 16 at 1247, Anesthesia | | PM PST | | | | | Intra-op | | | | | | + +-------+ +-------+---+---+ +-------+ +--------+---+---+ | Given | 08/10/20 | 150 mg | | | | | 16 12:47 | | | | | | PM PST | | | | +-------+ +--------+---+---+ +---+---+ | | | +---+---+ + +-------+ +--------+---+---+ | succinylcholine (ANECTINE) | Given | 08/10/20 | 100 mg | | | | injection Intravenous, PRN, | | 16 12:47 | | | | | Starting 08/10/16 at 1247, | | PM PST | | | | | Anesthesia Intra-op | | | | | | + +-------+ +--------+---+---+ +---+---+ | | | +---+---+ documented in this encounter"
--- OUTSIDE RECORDS SUMMARY | ~2020-06-17 | XMS | Encounter Summary ---
Demographics + + + | Address | [address] | | | [place] [address] | + + + | Home Phone | | + + + | Preferred Language | Unknown | + + + | Marital Status | | + + + | Buddhism Affiliation | 1013 | + + + | Race | White | + + + | Ethnic Group | Not or | + + + Author + + + | Author | [facility] | | | and [...] [place] | | | | | [address] | | + + + + + | Mason Fleming | ECON | Unknown | | + + + + + Care Team Providers + +------+ + | Care Travel Director Name | Role | Phone | + +------+ + | Michael Grijalva | PCP | | | MD | | | + +------+ + Reason for Visit + + + | Reason | Comments | + + + | Medication Refill | | + + + Encounter Details +--------+--------+ + + + | Date | Type | Department | Care Team | Description | +--------+--------+ + + + | 09/09/ | Refill | [facility] | Lyn, | Medication Refill | | 2015 | | PHYSIATRY [address] | MICHELLE Masterson [address] | | | | | [address] | [address] | | | | | [place] | [place] [address] | | | | | [address] | [phone] | | | | | [phone] | | | +--------+--------+ + + + [...] Miscellaneous Notes Telephone Encounter - Mahogany Elena CMA - 09/09/2015 9:57 AM PSTPatient requesting RX refill. Last filled on 05/07/2015.Electronically signed by Mahogany Elena CMA at 6 9:57 AM PSTdocumented in this encounter Plan of Treatment Not on filedocumented as of this encounter Visit Diagnoses Not on filedocumented in this encounter"
--- OUTSIDE RECORDS SUMMARY | ~2020-06-17 | XMS | Encounter Summary ---
Demographics + + + | Address | [address] | | | [place] [address] | + + + | Home Phone [...] Author | [facility] | | | and [place] | + [...] [place] | | | | | [address] | | + + + + + | Mason Fleming | ECON | Unknown | | + + + + + Care Team Providers + +------+ + | Care Visitor Services Assistant Name | Role | Phone | + +------+ + | Michael Grijalva | PCP | | | MD | | | + +------+ + Reason for Visit + +--------+ + | Reason | Onset | Comments | | | Date | | + +--------+ + | Medication Refill | 08/26/ | | | | 2015 | | + +--------+ + Encounter Details +--------+--------+ + + + | Date | Type | Department | Care Team | Description | +--------+--------+ + + + | 08/26/ | Refill | [facility] | Joshua Jorge MD | Medication Refill | | 2015 | | NEUROSURGERY [address] | [address] | | | | | [address] | [place] [address] | | | | | LA[place] | [phone] | | | | | [address] | | | | | | [phone] | | | +--------+--------+ + + + [...] Telephone Encounter - Delilah Schneider RN - 09/18/2016 9:45 AM PSTAuthorization's team thai cookwed up on PA concern: CALL TO [phone], SPOKE TO CAMILLE WHO DBL CHECKED WITH KHLOE WOODRUFF, NO PA NEEDED FOR THIS MEDICATION Medication Name: Hydrocodone 10/325 mg Strength and directions: 1-2 tabs every 4 hours (Routing comment) Advised Iam Goodrich [place]. Joleen will document and advise patient to call his in surance for more information. Confirmed patient paid [id number] to fill Rx yesterday () elephone Encdo nter - Delilah Schneider RN - 09/17/2016 2:42 PM Joleen Holm, called and reported that she is in receipt of the authorization we faxed that indicates patient's [place] is cove red. However, when she tried to run the Rx, she gets a denial message noting 6 tablet per d ay maximum. Please advise. elephone Encounter - Delilah Schneider RN - 08/27/2016 8:57 AM PSTPatient notified R x is being sent via [facility] [employer] Mail # [phone] elephone Encounter - Jun Stout PA-C - 08/27/2016 6:22 AM PSTapproved elephone Encounter - Rere Mcgowan - 1 10/27/2015 1:11 PM PSTPatient called again and he has given me the phone number to get prior approval for his medication of hydrocodone. It is [phone] and you press "0" twice to g et to a sales donor recruitment representative quicker. 1: 13 PM PSTTelephone Encounter - Delilah Schneider RN - 08/26/2016 12:29 PM PSTProcedure: L2-3 , L3-4, L4-5 Lateral Anterior Interbody Fusion, L5-S1 Transforaminal Lumbar Interbody Fusion , L3-4 Decompression Date of Surgery: 08/10/2016 Taking pain meds (Name/Dosage)? Cyclobenzaprine every 6 hours; Hydrocodone 2 tablets ever y 4 hours; MS 30 ER 1 tablet every 12 hours; Gabapentin 1 tablet 3 times daily Medication Refill Request Procedure: L2-3, L3-4, L4-5 Lateral Anterior Interbody Fusion, L5-S1 Transforaminal Lumba r Interbody Fusion, L3-4 Decompression Date of Surgery: 08/10/2016 Medication requested: Hydrocodone-acetaminophen 10-325 mg Do you have a pain contract with any providers: No Are you receiving pain medication prescriptions from any other providers: No Current intake: Hydrocodone-acetaminophen 10-325 mg, 2 tabs AM, 1 tab every 4-6 hours othe rwise; cyclobenzaprine about once a day, only if cramping; No longer taking MS Contin (08/25 last dose) Date of last refill: 08/22/16 # of tabs left/or when will patient run out of this medication: 75 tablets Where is pain located? Type of pain (constant, intermittent, sharp, dull)? : Soreness on e ither side of spine at surgical site; lifting leg with ambulation in left thigh and groin; s oreness in right braga; Right braga and foot swell daily and are tingling. Seems to be improv ing slowly (US ruled out DVT) Send in the mail or call in to preferred pharmacy? Send via [facility] [employer] Mail Please approve/ deny Rx. elephone Encounter - Rere Mcgowan - 08/26/2016 11:44 AM PSTPatient is requesting a refill for his HYDROc odone-acetaminophen (NORCO) 10-325 mg per tablet and he is asking for the written prescripti on to be mailed to his address. Please advise documented in this encounter Plan of Treatment Not on filedocumented as of this encounter Visit Diagnoses + + | Diagnosis | + + | S/P lumbar fusion - Primary Arthrodesis status | + + documented in this encounter
--- OUTSIDE RECORDS SUMMARY | ~2020-06-17 | XMS | Encounter Summary ---
Demographics + + + | Address | [address] | | | [place] [address] | + + + | Home Phone | | + + + | Preferred Language | Unknown | + + + | Marital Status | | + + + | Pentecostalism Affiliation | 1013 | + + + | Race | White | + + + | Ethnic Group | Not or | + + + Author + + + | Author | [facility] | | | and [place] | + + + | Organization | [facility] | | | and [...] [place] | | | | | [address] | | + + + + + | Mason Fleming | ECON | Unknown | | + + + + + Care Team Providers + +------+ + | Care Shoe Maker Name | Role | Phone | + +------+ + | Michael Grijalva | PCP | | | MD | | | + +------+ + Encounter Details +--------+ + + + + | Date | Type | Department | Care Team | Description | +--------+ + + + + | 06/29/ | Orders Only | [facility] | Joshua Jorge MD | Status post lumbar | | 2017 | | NEUROSURGERY [address] | [address] | spinal fusion | | | | [address] | [place] [address] | (Primary Dx) | | | | [place] | [phone] | | | | | [address] | | | | | | [phone] | | | +--------+ + + + [...] XR Lumbar Spine 2 or 3 Vw (07/06/2017 9:17 AM PST) + + | Specimen | + + | | + + + + + | Narrative | Performed At | + + + | XR LUMBAR SPINE 2 OR 3 VW 07/06/2017 9:17 AM HISTORY: post lumbar | [facility] | | fusion. COMPARISON: 12/30/2016 FINDINGS: Again visualized are | | | hardware for posterior fusion from L1 through S1 with spacer hardware | | | at L2-3 through L4-5. A left lateral screw is seen of L4. The | | | hardware are intact. There is [...] Dictated and Signed by: Dandy Sotelo MD Electronically signed: | | | 07/06/2017 9:43 AM | | + + + + + | Procedure Note | + + | Benito, Rad Results In - 07/06/2017 9:46 AM PST XR LUMBAR SPINE 2 OR 3 VW 07/06/2017 | | 9:17 AMHISTORY: post lumbar fusion.COMPARISON: 12/30/2016FINDINGS:Again visualized are | | hardware for posterior fusion from L1 through S1 withspacer hardware at L2-3 through | | L4-5. A left lateral screw is seen of L4. Thehardware are intact. There is mild right | | curvature of the thoracolumbar spine.Extensive spondylosis is [...] through S1.Dictated | | and Signed by: Dandy Sotelo MD Electronically signed: 07/06/2017 9:43 AM | |Extensive spondylosis is present. Bone mineralization [...] | | | |Dictated and Signed by: Dandy Sotelo MD | | Electronically signed: 07/06/2017 9:43 AM | + + + +---------+ + + | Performing | Address | City/State/Zipcode | Phone Number | | Organization | | | | + +---------+ + + | [facility] | | | | + +---------+ + + documented in this encounter Visit Diagnoses + + | Diagnosis | + + | Status post lumbar spinal fusion - Primary Arthrodesis status | + + documented in this encounter"
--- OUTSIDE RECORDS SUMMARY | ~2020-06-17 | XMS | Encounter Summary ---
Demographics + + + | Address | [address] | | | [place] [address] | + + + | Home Phone [...] + + + | Author | [facility] | | | and [place] | + + + | Organization | [facility] | | [...] [place] | | | | | [address] | | + + + + + | Mason Fleming | ECON | Unknown | | + + + + + Care Team Providers + +------+ + | Care Assault Amphibious Vehicle Crewman Name | Role | Phone | + +------+ + PCP | Unavailable | + +------+ + Encounter Details +--------+ + + + + | Date | Type | Department | Care Team | Description | +--------+ + + + + | 07/01/ | Hospital | [facility] | Peter Haney | | | 2010 | Encounter | MED CTR XRAY [address] | [address] | | | | | [place] | [place], [place] | | | | | [place] [address] | [address] | | | | | [phone] | | | +--------+ + + + [...] +--------+ + + + | FL EPIDURAL OR | | 07/01/2011 | | Results for this | | SUBARACHNOID | | 3:00 PM | | procedure are in the | | INJECTION LUMBAR | | PDT | | results section. | | SACRAL | | | | | + +--------+ + + + documented in this encounter Results FL Injection Epidural Lumbar Sacral (07/01/2011 3:00 PM PDT) + + | Specimen | + + | | + + + + + | Narrative | Performed At | + + + | [facility] Diagnostic Imaging Department | [facility] | | [address] [place] [facility] | [facility] | | PROCEDURE NOTE EPIDURAL | DIAG IMG | | STEROID INJECTIONS, 07/01/2011 CLINICAL HISTORY: ICD-9 CODE 724.4, | | | LUMBAR RADICULITIS. Mr. Piter Fleming presents to the | | | fluoroscopy suite for fluoroscopically guided bilateral L3-L4 | | | transforaminal epidural steroid injections as part of conservative | | | management for chronic pain with lumbar radiculopathy and | | | degenerative disk disease. After informed consent was obtained, the | | | patient lay in the prone position on the fluoroscopy table. The | | | areas were identified under fluoroscopic guidance. The areas were | | | prepped and draped in sterile fashion. A 25-gauge, 1.5-inch needle | | | was inserted into each region and approximately 3 mL of buffered 1% | | | lidocaine was infused. Then, a 22-gauge spinal needle was inserted | | | into the posterior superior transforaminal space bilaterally and | | | advanced into the epidural space under fluoroscopic guidance. | | | Confirmation into the epidural space was obtained with infusion of | | | approximately 1 mL of Isovue contrast which showed epidural flow as | | | well as nerve sheath flow. Then, a combination of 2 mL of 1% | | | lidocaine and 2 mL of 6 mg/mL Celestone was infused divided between | | | the two sides. The patient tolerated the procedure well without | | | complications. Pre- and post-procedure blood pressures were stable. | | | The patient was given verbal as well as written followup | | | instructions, and the patient reported no significant change in pain | | | symptoms post procedure. Prior to the start of the procedure, | | | the following were performed and verified, including correct patient | | | identity, correct site/side marked and visible, agreement on the | | | procedure to be done, correct patient positioning and an accurate | | | procedure consent form. Any safety precautions based on clinical | | | history and/or medication use have been addressed. I personally | | | performed the procedures above. <Electronically Signed by Peter Cunha | | | MD [place]> 07/09/11 1807 | | + + + + + | Procedure Note | + + | Benito, Rad Conversion - 10/06/2013 4:09 PM [facility] | | Diagnostic Imaging Department | | [address] [facility] | | | | | | | | PROCEDURE NOTE | | | | EPIDURAL STEROID INJECTIONS, 07/01/2011 | | | | CLINICAL HISTORY: ICD-9 CODE 724.4, LUMBAR RADICULITIS. | | | | Mr. Piter Fleming presents to the fluoroscopy suite for fluoroscopically guided | | bilateral L3-L4 transforaminal epidural steroid injections as part of | | conservative management for chronic pain with lumbar radiculopathy and | | degenerative disk disease. After informed consent was obtained, the patient lay | | in the prone position on the fluoroscopy table. The areas were identified under | | fluoroscopic guidance. The areas were prepped and draped in sterile fashion. A | | 25-gauge, 1.5-inch needle was inserted into each region and approximately 3 mL | | of buffered 1% lidocaine was infused. Then, a 22-gauge spinal needle was | | inserted into the posterior superior transforaminal space bilaterally and | | advanced into the epidural space under fluoroscopic guidance. Confirmation into | | the epidural space was obtained with infusion of approximately 1 mL of Isovue | | contrast which showed epidural flow as well as nerve sheath flow. Then, a | | combination of 2 mL of 1% lidocaine and 2 mL of 6 mg/mL Celestone was infused | | divided between the two sides. The patient tolerated the procedure well without | | complications. Pre- and post-procedure blood pressures were stable. The patient | | was given verbal as well as written followup instructions, and the patient | | reported no significant change in pain symptoms post procedure. | | | | Prior to the start of the procedure, the following were performed and verified, | | including correct patient identity, correct site/side marked and visible, | | agreement on the procedure to be done, correct patient positioning and an | | accurate procedure consent form. Any safety precautions based on clinical | | history and/or medication use have been addressed. | | | | I personally performed the procedures above. | | <Electronically Signed by Peter Haney MD> 07/09/11 1807 | + + + +---------+ + + [...]
--- OUTSIDE RECORDS SUMMARY | ~2020-06-17 | XMS | Encounter Summary ---
Demographics + + + | Address | [address] | | | [place] [address] | + + + | Home Phone | | + + + | Preferred Language | Unknown | + + + | Marital Status | | + + + | Quaker Affiliation | 1013 | + + + | Race | White | + + + | Ethnic Group | Not or | + + + Author + + + | Author | [facility] | | | and [place] [...] [place] | | | | | [address] | | + + + + + | Mason Fleming | ECON | Unknown | | + + + + + Care Team Providers + +------+ + | Care Shell Reprint Operator Name | Role | Phone | + +------+ + | Michael Grijalva | PCP | | | MD | | | + +------+ + Encounter Details +--------+ + + + + | Date | Type | Department | Care Team | Description | +--------+ + + + + | 05/27/ | Abstract | [facility] | Joshua Jorge MD | | | 2016 | | NEUROSURGERY [address] | [address] | | | | | [address] | [place] [address] | | | | | [place], [place] | [phone] | | | | | [address] | | | | | | [phone] | | | +--------+ + + + [...]
--- OUTSIDE RECORDS SUMMARY | ~2020-06-17 | XMS | Encounter Summary ---
Demographics + + + | Address | [address] | | | [place] [address] | + + + | Home Phone | | + + + | Preferred Language | Unknown | + + + | Marital Status | | + + + | Cheondoism Affiliation | 1013 | + + + | Race | White | + + + | Ethnic Group | Not or | + + + Author + + + | Author | [facility] | | | and [...] [place] | | | | | [address] | | + + + + + | Mason Fleming | ECON | Unknown | | + + + + + Care Team Providers + +------+ + | Care Automotive Tire Testing Supervisor Name | Role | Phone | [...] [facility] | | | | | | [place], | [address] | | | | | Sacroiliitis | Peter Cunha MD | [place], | | | | | ([facility]) | [address] | [place] | | | | | Procedures | [place] | [address] | | | | | [place] INJECT SI | [place], [place] | Phone: | | | | | JOINT | [address] | [phone] | | | | | ARTHRGRPHY&/ | Phone: | Fax: | | | | | ANES/STEROID | [phone] | [phone] | | | | | W/IMAGE [place] | Fax: | | | | | | | [phone] | | | | | | TRIAMCINOLON | | | | | | | E ACET INJ | | | | | | | NOS, 10 MG | | | | | | | Appt 10/06 - | | | | | | | Bilat SI | | | +--------+--------+ + + + + Encounter Details +--------+ + + + + | Date | Type | Department | Care Team | Description | +--------+ + + + + | 10/06/ | Hospital | [facility] | Ana Cristina Tiwari | Sacroiliitis, not | | 2018 | Encounter | MED CTR XRAY [address] | MICHELLE Campbell [address] | elsewhere classified | | | | [place] | [facility] | ([facility]) | | | | [place] [address] | [address] [place] | | | | | [phone] | [address] | | | | | | | | | | | | Intrusion Analyst, Ws | | | | | | [...] +---------+ + + | Blood Pressure | 193/81 | 10/06/2017 2:04 PM | | | | | PST [...] + +--------+ + + + | FL SACROILIAC | Routin | 10/06/2017 | Sacroiliitis, not | Results for this | | INJECTION RIGHT | e | 1:38 PM | elsewhere classified | procedure are in the | | | | PST | ([facility]) | results section. | + +--------+ + + + | FL SACROILIAC | Routin | 10/06/2017 | Sacroiliitis, not | Results for this | | INJECTION LEFT | e | 1:38 PM | elsewhere classified | procedure are in the | | | | PST | ([facility]) | results section. | + +--------+ + + + documented in this encounter Results FL Sacroiliac Injection Left (10/06/2017 1:38 PM PST) + + | Specimen | + + | | + + + + + | Narrative | Performed At | + + + | | [facility] | | 10/06/2017Bilateral Sacroiliac Joint InjectionClinical History: | | | Sacroiliitis ICD-10 M46.1 Piter Fleming presents to the | | | fluoroscopy suite for fluoroscopically guided bilateral sacroiliac | | | joint steroid injections as part of conservative management for | | | chronic pain with sacroiliitis. After informed consent was obtained | | | the patient laid in the prone position on the fluoroscopy table. The | | | bilateral sacroiliac joints were identified under fluoroscopic | | | guidance. The areas were prepped and draped in sterile fashion. A 25 | | | gauge 1-1/2 inch needle was inserted into each region and | | | approximately 3 mL of buffered 1% lidocaine was infused. Then a 22 | | | gauge spinal needle was inserted into the inferior joint spaces under | | | fluoroscopic guidance. Confirmation into the sacroiliac joints | | | obtained with infusion of approximately 1 mL of Omnipaque contrast | | | which showed flow within the joint spaces. Then a combination of 2 mL | | | 1% lidocaine and 1.5 mL of 10 mg per milliliter dexamethasone was | | | infused divided between the two sides. The patient tolerated the | | | [...] identity, correct site/side marked and visible, agreement of the | | | procedure to be done, correct patient positioning and an accurate | | | procedure consent form. Any safety precautions based on clinical | | | history and/or medications have been addressed. I personally performed | | | the procedure above. Estimated blood loss: MinimalComplications: | | | NoneFindings: As expectedAnesthesia: Local 1% Lidocaine | | |I personally performed the procedure above. | | | | | |Estimated blood loss: Minimal | | |Complications: None | | |Findings: As expected | | |Anesthesia: Local 1% Lidocaine | | | | | + + + + +---------+ + + | Performing | Address | City/State/[facility] | Phone Number | | Organization | | | | + +---------+ + + | [facility] | | | | + +---------+ + + [place] Sacroiliac Injection Right (10/06/2017 1:38 PM PST) + + | Specimen | + + | | + + + + + | Narrative | Performed At | + + + | | [facility] | | 10/06/2017Bilateral Sacroiliac Joint InjectionClinical History: | | | Sacroiliitis ICD-10 M46.1 Piter Fleming presents to the | | | fluoroscopy suite for fluoroscopically guided bilateral sacroiliac | | | joint steroid injections as part of conservative management for | | | chronic pain with sacroiliitis. After informed consent was obtained | | | the patient laid in the prone position on the fluoroscopy table. The | | | bilateral sacroiliac joints were identified under fluoroscopic | | | guidance. The areas were prepped and draped in sterile fashion. A 25 | | | gauge 1-1/2 inch needle was inserted into each region and | | | approximately 3 mL of buffered 1% lidocaine was infused. Then a 22 | | | gauge spinal needle was inserted into the inferior joint spaces under | | | fluoroscopic guidance. Confirmation into the sacroiliac joints | | | obtained with infusion of approximately 1 mL of Omnipaque contrast | | | which showed flow within the joint spaces. Then a combination of 2 mL | | | 1% lidocaine and 1.5 mL of 10 mg per milliliter dexamethasone was | | | infused divided between the two sides. The patient tolerated the | | | [...] identity, correct site/side marked and visible, agreement of the | | | procedure to be done, correct patient positioning and an accurate | | | procedure consent form. Any safety precautions based on clinical | | | history and/or medications have been addressed. I personally performed | | | the procedure above. Estimated blood loss: MinimalComplications: | | | NoneFindings: As expectedAnesthesia: Local 1% Lidocaine | | |I personally performed the procedure [...] + | Diagnosis | + + | Sacroiliitis, not elsewhere classified (HCC) Sacroiliitis, not elsewhere classified | + + documented in this encounter Administered Medications + +--------+ +-------+------+------+ | Medication Order | MAR | Action | Dose | Rate | Site | | | Action | Date | | | | + +--------+ +-------+------+------+ | dexamethasone (PF) 10 mg/mL | Given | 10/06/19 | 15 mg | | | | injection 15 mg 15 mg, | | 18 1:50 | | | | | Intra-articular, ONCE, 10/06/17 | | PM PST | | | | | at 1330, For 1 dose | | | | | | + +--------+ +-------+------+------+ +---+---+ | | | +---+---+ + +-------+ +-------+---+---+ | iohexol (OMNIPAQUE 300) 300 | Given | 10/06/19 | 4 mLs | | | | mg/mL injection 4 mL 4 mL, | | 18 1:45 | | | | | Other, ONCE, 10/06/17 at 1330, | | PM PST | | | | | For 1 dose | | | | | | + +-------+ +-------+---+---+ +---+---+ | | | +---+---+ + +-------+ +-------+---+---+ | lidocaine (PF) 1% injection 2 | Given | 10/06/19 | 2 mLs | | | | mL 2 mL, Other, ONCE, 10/06/17 | | 18 1:50 | | | | | at 1330, For 1 dose | | PM PST | | | | + +-------+ +-------+---+---+ +---+---+ | | | +---+---+ + +-------+ +--------+---+ + | lidocaine buffered 1% injection | Given | 10/06/19 | 10 mLs | | Other | | 10 mL 10 mL, Intradermal, ONCE, | | 18 1:40 | | | (Comment | | 10/06/17 at 1330, For 1 dose | | PM PST | | | ) | + +-------+ +--------+---+ + +---+---+ | | | +---+---+ documented in this encounter"
--- OUTSIDE RECORDS SUMMARY | ~2020-06-17 | XMS | Encounter Summary ---
Demographics + + + | Address | [address] | | | [place] [address] | + + + | Home Phone | | + + + | Preferred Language | Unknown | + + + | Marital Status | | + + + | Denominational Affiliation | 1013 | + + + | Race | White | + + + | Ethnic Group | Not or | + + + Author + + + | Author | [facility] | | | and [place] | + + + | Organization | [facility] | | [...] [place] | | | | | [address] | | + + + + + | Mason Fleming | ECON | Unknown | | + + + + + Care Team Providers + +------+ + | Care Rim Buster Name | Role | Phone | + +------+ + | Michael Grijalva | PCP | | | MD | | | + +------+ + Encounter Details +--------+ + + + + | Date | Type | Department | Care Team | Description | +--------+ + + + + | 11/10/ | Hospital | [facility] | Girish Jun | S/P lumbar fusion; | | 2017 | Encounter | MED CTR XRAY [address] | [address] | Spinal stenosis, | | | | [place] | [address] [place], [place] | lumbar region, with | | | | [place] [address] | [id number] | neurogenic | | | | [phone] | | claudication; Flat | | | | | | back syndrome, | | | | | | acquired; Facet | | | | | | arthropathy, lumbar; | | | | | | Degenerative disc | | | | | | disease lumbar spine | +--------+ + + + + Social [...] mEq by mouth | | 0 | 03/10/20 | | | (KLOR-CON) 10 mEq | [...] + + + +---------+ + + | cephalexin | | | 0 | 10/21/19 | | | (KEFLEX) 500 mg | | | | 17 | 7 | | capsule | | | | [...] + +---------+ + + | levothyroxine | | | 0 | 10/23/19 | | | (SYNTHROID, | | | | 17 | 7 | | LEVOTHROID) 175 MCG | | | | | | | tablet [...] LUMBAR SPINE 2 OR | Routin | 11/10/2016 | S/P lumbar fusion | Results for this | | 3 VW | e | 9:24 AM | Spinal stenosis, | procedure are in the | | | | PDT | lumbar region, with | results section. | | | | | neurogenic | | | | | | claudication Flat | | | | | | back syndrome, | | | | | | acquired Facet | | | | | | arthropathy, lumbar | | | | | | Degenerative disc | | | | | | disease lumbar spine | | + +--------+ + + + [...] priors. FINDINGS: Again observed are | [facility] | | hardware for posterior fusion from L1 through S1 with spacer hardware | [facility] | | at L2-3 through [...] [address] 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
--- OUTSIDE RECORDS SUMMARY | ~2020-06-17 | XMS | Encounter Summary ---
Demographics + + + | Address | [address] | | | [place] [address] | + + + | Home Phone | | + + + | Preferred Language | Unknown | + + + | Marital Status | | + + + | Mandaen Affiliation | 1013 | + + + | Race | White | + + + | Ethnic Group | Not or | + + + Author + + + | Author | [facility] | | | and [place] | + + + | Organization | [facility] | | [...] [place] | | | | | [address] | | + + + + + | Mason Fleming | ECON | Unknown | | + + + + + Care Team Providers + +------+ + | Care Siding Mechanic Name | Role | Phone | + [...] Thoracic or | [place], | [address] | | | | | lumbosacral | ePter Cunha MD | [place], | | | | | neuritis or | [address] | [place] | | | | | | ST [place] | [address] | | | | | radiculitis, | [place], [place] | Phone: | | | | | unspecified | [address] | [phone] | | | | | Procedures | Phone: | Fax: | | | | | [place] INJECT | [phone] | [phone] | | | | | ANES/STEROID | Fax: | | | | | | FORAMEN | [phone] | | | | | | LUMBAR/SACRA | | | | | | | L W IMG | | | | | | | GUIDE ,1 | | | | | | | LEVEL MO | | | | | | | TRIAMCINOLON | | | | | | | E ACET INJ | | | | | | | NOS, 10 MG | | | | | | | Bilateral | | | | | | | L3-4 | | | | | | | TFESI-appt | | | | | | | 7/9 | | | +--------+--------+ + + + + Encounter Details +--------+ + + + + | Date | Type | Department | Care Team | Description | +--------+ + + + + | 03/07/ | Hospital | [facility] | Lyn, | Spinal stenosis of | | 2015 | Encounter | MED CTR XRAY [address] | [address]HELLE [address]on [address] | lumbar - worst at | | | | [place] | [facility] [address] | the L2-L3 and L3-L4 | | | | [place] [address] | [place] [address] | levels. This would | | | | [phone] | [phone] | be classified as | | | | | | severe.; Lumbar | | | | | [employer] [place] | radiculopathy | | | | | [place] [...] +---------+ + + | Blood Pressure | 160/89 | 03/07/2015 2:59 PM | | | | | PDT | | + +---------+ + + | Pulse | 53 | 03/07/2015 2:59 PM | | | | | PDT [...] | FL EPIDURAL STEROID | Routin | 03/07/2015 | Spinal stenosis of | Results for this | | INJECTION LUMBAR | e | 2:59 PM | lumbar - worst at | procedure are in the | | TRANSFORAMINAL | | PDT | the L2-L3 and L3-L4 | results section. | | | | | levels. This would | | | | | | be classified as | | | | | | severe. Lumbar | | | | | | radiculopathy | | + +--------+ + + + documented in this encounter Results FL SHIRLEY Lumbar Transforaminal (03/07/2015 2:59 PM PDT) + + | Specimen | + + | | + + + + + | Narrative | Performed At | + + + | 03/07/2015 Bilateral Transforaminal Epidural Steroid Injections | [facility] | | Diagnosis: Lumbar radiculopathy ICD-9 Code 724.4 P[address] | [facility] | | Damir Fleming presents to the fluoroscopy suite for [facility] | | fluoroscopically-guided bilateral L3-L4 transforaminal epidural [...] ST. | [address] | [place], [place] | [phone] | | [facility] | | [address] | | | - IMAGING | | [...] + | betamethasone (CELESTONE | Given | 03/07/20 | 12 mg | | Other | | SOLUSPAN) injection 12 mg 12 mg, | | 15 2:45 | | | (Comment | | Intramuscular, ONCE, [facility] 03/07/15 | | PM PDT | | | ) | | at 1500, For 1 dose, Shake well. | | | | | | | Not for IV use., | | | | | | + +--------+ +-------+------+ + +---+---+ | | | +---+---+ + +-------+ +-------+---+---+ | iohexol (OMNIPAQUE 300) 300 | Given | 03/07/20 | 3 mLs | | | | mg/mL injection 3 mL 3 mL, | | 15 2:42 | | | | | INTRATHECAL, ONCE, Marli 03/07/15 at | | PM PDT | | | | | 1500, For 1 dose | | | | | | + +-------+ +-------+---+---+ +---+---+ | | | +---+---+ + +-------+ +------+---+---+ | lidocaine (PF) 1% injection 1 | Given | 03/07/20 | 1 mL | | | | mL 1 mL, EPIDURAL, ONCE, Marli | | 15 2:45 | | | | | 03/07/15 at 1500, For 1 dose | | PM PDT | | | | + +-------+ +------+---+---+ +---+---+ | | | +---+---+ + +-------+ +-------+---+ + | lidocaine 1% injection 2 mL 2 | Given | 03/07/20 | 2 mLs | | Other | | mL, Intradermal, ONCE, Marli 03/07/15 | | 15 2:38 | | | (Comment | | at 1500, For 1 dose | | PM PDT | | | ) | + +-------+ +-------+---+ + +---+---+ | | | +---+---+ + +-------+ +-------+---+---+ | sodium bicarbonate (NEUT) 4% | Given | 03/07/20 | 2 mLs | | | | injection 2 mL 2 mL, Topical, | | 15 2:38 | | | | | ONCE, Marli 03/07/15 at 1500, For 1 | | PM PDT | | | | | dose | | | | | | + +-------+ +-------+---+---+ +---+---+ | | | +---+---+ documented in this encounter"
--- OUTSIDE RECORDS SUMMARY | ~2020-06-17 | XMS | Encounter Summary ---
Demographics + + + | Address | [address] | | | [place] [address] | + + + | Home Phone [...] | Author | [facility] | | | and [...] | + + + + + | Ayb Fleming | ECON | [address] | | | | | [place] | | | | | [address] | | + + + + + | Mason Fleming | ECON | Unknown | | + + + + + Care Team Providers + +------+ + | Care Java Web Architect Name | Role | Phone | [...] Home Health | Diagnoses | Jurgen, | [facility] ST | | | Services | Services | Primary | Hollis Xie MD | [facility] | | | Required | | osteoarthrit | [address] | HOSPITAL | | | | | is of right | [place] | [facility] | | | | | hip Right | [place] | HOME CARE | | | | | hip pain | [address] | [address] | | | | | History of | Phone: | [place] | | | | | falling | [phone] | [place] | | | | | Weakness of | Fax: | [address] | | | | | lower | [phone] | Phone: | | | | | extremity, | | [phone] | | | | | unspecified | | Fax: | | | | | laterality | | [phone] | +--------+ + + + + + Encounter Details +--------+ + + + + | Date | Type | Department | Care Team | Description | +--------+ + + + + | 08/14/ | Orders Only | [facility] [place] | Hollis Seaman, | Primary | | 2019 | | ORTHOPEDIC SURGERY | [address] | 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[place] | [place]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 (Primary | | | | [place] | [address] | Dx); Right hip pain; | | | | [address] | | History of falling; | | | | [phone] | | Weakness of lower | | | | | | extremity, | | | | | | unspecified | | | | | | laterality | +--------+ + + + + Social [...] of this encounter Plan of Treatment + + +--------+ + + | Name | Type | Priori | Associated Diagnoses | Order Schedule | | | | ty | | | + + +--------+ + + | Home Health, | Outpatient | Routin | Primary | Ordered: 08/14/2019 | | External - AMB | Referral | e | osteoarthritis of | | | Referral | |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 Right hip | | | | | | pain History of | | | | | | falling Weakness of | | | | | | lower extremity, | | | | | | unspecified [...] region and thigh | + + | History of falling Personal history of fall | + + | Weakness of lower extremity, unspecified laterality | + + documented in this encounter"
--- OUTSIDE RECORDS SUMMARY | ~2020-06-17 | XMS | Encounter Summary ---
Demographics + + + | Address | [address] | | | [place] [address] | + + + | Home Phone | | + + + | Preferred Language | Unknown | + + + | Marital Status | | + + + | Muslim Affiliation | 1013 | + + + | Race | White | + + + | Ethnic Group | Not or | + + + Author + + + | Author | [facility] | | | and [place] | + + + | Organization | [facility] | | [...] [place] | | | | | [address] | | + + + + + | Mason Fleming | ECON | Unknown | | + + + + + Care Team Providers + +------+ + | Care Ct Scan Technician Name | Role | Phone | + +------+ + | Michael Grijalva | PCP | | | MD | | | + +------+ + Reason for Visit +--------+--------+ + | Reason | Onset | Comments | | | Date | | +--------+--------+ + | Other | 02/08/ | | | | 2019 | | +--------+--------+ + Encounter Details +--------+ + + + + | Date | Type | Department | Care Team | Description | +--------+ + + + + | 02/08/ | Telephone | [facility] | Peter Haney | Other | | 2018 | | PH[address]SIATRY [address] | [address], [address] | | | | | [address] | [place], [place] | | | | | [place] | [address] | | | | | [address] | | | | | | [phone] | | | +--------+ + + + [...] encounter Miscellaneous Notes Telephone Encounter - Pepper Jimenez, Ventilator Specialist - 02/13/2019 10:11 AM PDTPatient r eturned my call and given Dr. Haney's recommendation. Patient would like to proceed wit h injection through Dr. Haney. elephone Encounter - Pepper Jimenez, Ventilator Specialist - 01/28 10:02 AM PDTCalled patient, left voicemail to return our call. elephone Encounter - Peter Araujo MD - 02/08/2019 7:51 PM PDTI'm always happy to try to help and I can do inject ions with ultrasound and have done tenotomies but this is the sort of thing that Dr. Calvin hagen does more often. Not sure exactly why the patient experienced delays and I understand his frustration but with good communication I still feel that the patient may be best served by Dr. Mckenzie. It looks like authorization has now been requested by his team. If Mr. Mikael koenig is willing to give Dr. Mckenzie and his staff one more chance that is what I would recomm end. If not, then I'm happy to do what I can. elephone Encounter - Pepper Jimenez, Ventilator Specialist - 2018 1:55 PM PDTPiter Fleming returned my call. He would like to know if Dr. Emma estes would be willing to perform ultrasound guided injection for his pain on the left ischial tuberosity and right bursa injection on the same day as his scheduled bilateral T12/L1 TFESI on 02/22/19. He stated his pain is worse on the left side and if at all possible Dr. Angelica duran would be willing do to the left side ischial tuberosity only. I did notify the patient I spoke with Dr. Mckenzie and he was working on getting a tenotomy procedure authorized. Morenita marcelo stated he was not confident in Dr. Mckenzie's office and stated he had to wait 2 hours to be seen the day of his scheduled appointment and was also expecting a call from Dr. Devang marcus's office but never received a call. He stated his visit with Dr. Mckenzie was pleasant b ut he did not have confidence in the office. He would like Dr. Haney to perform injecti ons if possible. Patient notified I spoke with Medina and he is willing to do injections in office but n eed to be three weeks apart from lumbar epidural steroid injections. Patient would like to g et injections in office first. Patient has now been scheduled and referrals have been placed . elep sabrina Encounter - Pepper Jimenez Ventilator Specialist - 02/08/2019 1:22 PM PDTCalled patient, left voicemail to return our call. elephone Encounter - Zina Allen - 02/08/2019 9:48 AM PDTPiter Damir Lonnie calling to see if there is an option to get his hip injections on the same day as his back injections 02/20/19, he states that Efraín referred him to Efraín hagen but patient is feeling that he has no confidence in their office, patient would like a uyen hagen back to discuss please advise. 9 :50 AM PDTdocumented in this encounter Plan of Treatment Not on filedocumented as of this encounter Visit Diagnoses Not on filedocumented in this encounter"
--- OUTSIDE RECORDS SUMMARY | ~2020-06-17 | XMS | Encounter Summary ---
Demographics + + + | Address | [address] | | | [place] [address] | + + + | Home Phone | | + + + | Preferred Language | Unknown | + + + | Marital Status | | + + + | Sabianism Affiliation | 1013 | + + + | Race | White | + + + | Ethnic Group | Not or | + + + Author + + + | Author | [facility] | | | and [place] | + + + | Organization | [facility] | | | [...] [place] | | | | | [address] | | + + + + + | Mason Fleming | ECON | Unknown | | + + + + + Care Team Providers + +------+ + | Care Operator Lights Name | Role | Phone | + +------+ + | Michael Grijalva | PCP | | | MD | | | + +------+ + Reason for Visit + +--------+ + | Reason | Onset | Comments | | | Date | | + +--------+ + | Follow-up | 06/14/ | Hip XR/SANDY | | | 2017 | | + +--------+ + Encounter Details +--------+ + + + + | Date | Type | Department | Care Team | Description | +--------+ + + + + | 06/14/ | Telephone | [facility] | Efraín Turk, | Follow-up (Hip | | 2018 | | PHYSIATRY [address] | PA-C [address] | XR/SANDY) | | | | [address] | [address] [facility] | | | | | [place], [place] | [place] [address] | | | | | [address] | [phone] | | | | | [phone] | | | +--------+ + + + [...] Miscellaneous Notes Telephone Encounter - Luz Marina Hollingsworth, Power Saw Mechanic - 06/14/2018 9:02 AM PDTCalled p atient to let him know I had called Dr. Green's office to request the XR's of his hips, but t hat they requested he sign an SANDY prior to faxing us the records. The patient verbalized und erstanding and stated he would stop by there today and sign the SANDY. I thanked the patient a nd wished him a good day. Electronically signed by Luz Marina Hollingsworth, Power Saw Mechanic at 9:11 AM PDTdocumented in this encounter Plan of Treatment Not on filedocumented as of this encounter Visit Diagnoses Not on filedocumented in this encounter"
--- OUTSIDE RECORDS SUMMARY | ~2020-06-17 | XMS | Encounter Summary ---
Demographics + + + | Address | [address] | | | [place] [address] | + + + | Home Phone [...] Author + + + | Author | [facility] | | | and [place] | + + + | Organization | [facility] | | | [...] [place] | | | | | [address] | | + + + + + | Mason Fleming | ECON | Unknown | | + + + + + Care Team Providers + +------+ + | Care Water Safety Teacher Name | Role | Phone | + +------+ + | Michael Grijalva | PCP | | | MD | | | + +------+ + Reason for Visit + +--------+ + | Reason | Onset | Comments | | | Date | | + +--------+ + | Appointment Question | 09/06/ | | | | 2019 | | + +--------+ + Encounter Details +--------+ + + + + | Date | Type | Department | Care Team | Description | +--------+ + + + + | 09/06/ | Telephone | [facility] | Efraín Turk, | Appointment Question | | 2018 | | PHYSIATRY [address] | PA-C [address] | | | | | [address] | [address] [facility] | | | | | [place], [place] | [place] [address] | | | | | [address] | [phone] | | | | | [phone] | | | +--------+ + + + [...] this encounter Miscellaneous Notes Telephone Encounter - Ava Crawford - 09/12/2018 1:20 PM PSTPiter Fleming has been scheduled for 10/18/18. Please please orders. Thanks elephone Encounter - Natalia Jackson - 09/08/2018 11:54 AM PSTPati ent returned call and would like same day injections to his Right Hip and Left Ischial. Plea se call patient to schedule same day 11: 55 AM PSTTelephone Encounter - Tom Schneider - 09/06/2018 1:28 PM PSTPatient called in look ing to get scheduled for an appointment and injection same day. Please call him back to dis cuss documented in this encou nter Plan of Treatment Not on filedocumented as of this encounter Visit Diagnoses Not on filedocumented in this encounter"
--- OUTSIDE RECORDS SUMMARY | ~2020-06-17 | XMS | Encounter Summary ---
Demographics + + + | Address | [address] | | | [place] [address] | + + + | Home Phone | | + + + | Preferred Language | Unknown | + + + | Marital Status | | + + + | Zoroastrian Affiliation | 1013 | + + + | Race | White | + + + | Ethnic Group | Not or | + + + Author + + + | Author | [facility] | | | and [place] | + + + | Organization | [facility] | | [...] [place] | | | | | [address] | | + + + + + | Mason Fleming | ECON | Unknown | | + + + + + Care Team Providers + +------+ + | Care Milk Collector Name | Role | Phone | + +------+ + | Michael Grijalva | PCP | | | MD | | | + +------+ + Reason for Visit + + + | Reason | Comments | + + + | Back Pain | low back radiating down both thighs and right calf | + + + Encounter Details +--------+---------+ + + + | Date | Type | Department | Care Team | Description | +--------+---------+ + + + | 02/07/ | Office | [facility] | Lyn, | Degenerative disc | | 2014 | Visit | PHYSIATRY [address] | [address] | disease lumbar spine | | | | [address] | [address] | - he has | | | | [place] | [place] [address] | degenerative changes | | | | [address] | [phone] | at every level from | | | | [phone] | | L2 to S1. (Primary | | | | | | Dx); Lumbar | | | | | | radiculopathy; | | | | | | Spinal stenosis of | | | | | | lumbar - worst at | | | | | | the L2-L3 and L3-L4 | | | | | | levels. This would | | | | | | be classified as | | | | | | severe.; Midline low | | | | | | back pain without | | | | | | sciatica; Peripheral | | | | | | [...] + + + | Blood Pressure | 144/84 | 02/07/2015 2:42 PM | | | | | PDT | | + + + + + | Pulse | 50 | 02/07/2015 2:42 PM | | | | | PDT [...] Weight | 115.7 kg (255 lb) | 02/07/2015 2:42 PM | | | | | PDT | | + + + + + | Height | 185.4 cm (6' 1") | 02/07/2015 2:42 PM | | | | | PDT | | + + + + + | Body Mass Index | 33.64 | 02/07/2015 2:42 PM | | | | | PDT | | + + + + + documented in this encounter Patient Instructions Patient Instructions Aleja Nicholson PA-C - 02/07/2015 2:59 PM PDTStart taking gabape ntin as described. This will help with the leg/nerve pain along with the foot numbness. Follow-up at the hospital thirty minutes before [...] of the procedure you must provide a tow truck driver to take you home. For all procedur es it is recommended that someone else drive you home. documented in this encounter Progress Notes Aleja Nicholson PA-C - 02/07/2015 3:15 PM PDTFormatting of this note might be differe nt from the original. CHIEF COMPLAINT: Chief Complaint Patient presents with Back Pain low back radiating down both thighs and right calf HISTORY OF PRESENT ILLNESS: The patient is a 69 y.o. male being seen today in follow-up for complaints of low back pain . The patient has been seen for this complaint in the past, with initial visit started by Dr. Haney. Previously it was recommended that he receive bilateral L3/L4 TFESI for lum bar radiculopathy, spinal stenosis. His last injection was 10/02/2014. He reports that the anson atment was 100% effective for 6 weeks, but has gradually decreased. The patient's symptoms originally began many years ago. He rates the pain as 6 on scale o f 1-10. He describes the pain as aching or soreness to the low back area. His symptoms worsen with [...] opted out of surgery at this time. Patient's medications, allergies, past medical, surgical, social [...] a day gabapentin (NEURONTIN) 300 mg capsule Take 2 tablets by mouth at night for neuropathic pain, lumbar radiculopathy,and back pain. 60 capsule 2 iron polysaccharides (NU-IRON) 150 MG capsule Take 150 mg by mouth Daily. LevOCARNitine L-Tartrate (L-CARNITINE) 500 MG CAPS Take 500 mg by mouth Daily. levothyroxine (LEVOTHROID) 200 mcg tablet Take 175 mcg by mouth Daily. multivitamin (THERAGRAN) per tablet [...] No abnormal bleeding PHYSICAL EXAMINATION: Filed Vitals: 02/07/15 1442 BP: 144/84 Pulse: 50 PainSc: 6 PainLoc: Back Body mass index is 33.65 [...] There is not lower extremity edema. ABDOMEN: Soft, non-tender, non-distended, and without palpable masses. The patient is obe se. NEUROLOGIC: The patient is awake, alert, and oriented to time, place, person. He follows simple and complex commands. His speech is fluent. He comprehends speech well. He has no apparent deficits with short or rn long term care memory. He has appropriate fund of knowledge [...] L2/3 and L3/4, facet arthritis ASSESSMENT: 1. Degenerative disc disease lumbar spine - he has degenerative changes at every level from L2 to S1. 2. Lumbar radiculopathy 3. Spinal stenosis of lumbar - worst at the L2-L3 and L3-L4 levels. This would be classifi ed as severe. 4. Midline low back pain without sciatica 5. Peripheral neuropathy PLAN: 1. The patient has tried conservative [...] i s instructed to continue taking the gabapentin 3. The patient is to follow up PRN pain. I did inform him we can do a same day injection the next time he comes in. ELECTRONICALLY SIGNED BY: Aleja Nicholson PA-C, 02/07/2015 SUPERVISING PHYSICIAN: Mariusz Moreno Jr., MD, who was present in the clinic today CC: Dr. Grijalva documented in t his encounter Plan of Treatment Not on filedocumented as of this encounter Results FL SHIRLEY Lumbar Transforaminal (03/07/2015 2:59 PM PDT) + + | Specimen | + + | | + + + + + | Narrative | Performed At | + + + | 03/07/2015 Bilateral Transforaminal Epidural Steroid Injections | [facility] | | Diagnosis: Lumbar radiculopathy ICD-9 Code [...] + + | Performing | Address | City/State[place] [facility] | Phone Number | | Organization | | | | + + + + + | [place] | [address] | [place] | [phone] | | [facility] | | [address] | | | - IMAGING | | | | + + + + + documented in this encounter Visit Diagnoses + + | Diagnosis | + + | Degenerative disc disease lumbar spine - he has degenerative changes at every level | | from L2 to S1. - Primary Degeneration of lumbar or lumbosacral intervertebral disc | + + | Lumbar radiculopathy Thoracic or lumbosacral neuritis or radiculitis, unspecified | + + | Spinal stenosis of lumbar - worst at the L2-L3 and L3-L4 levels. This would be | | classified as severe. Spinal stenosis, lumbar region, without neurogenic claudication | + + | Midline low back pain without sciatica | + + | Peripheral neuropathy Unspecified hereditary and idiopathic peripheral neuropathy | + + documented in this encounter
--- OUTSIDE RECORDS SUMMARY | ~2020-06-17 | XMS | Encounter Summary ---
Demographics + + + | Address | [address] | | | [place] [address] | + + + | Home Phone | | + + + | Preferred Language | Unknown | + + + | Marital Status | | + + + | Bahai Affiliation | 1013 | + + + | Race | White | + + + | Ethnic Group | Not or | + + + Author + + + | Author | [facility] | | | and [...] [place] | | | | | [address] | | + + + + + | Mason Fleming | ECON | Unknown | | + + + + + Care Team Providers + +------+ + | Care Director Of Alumni Relations Name | Role | Phone | + +------+ + | Michael Grijalva | PCP | | | MD | | | + +------+ + Encounter Details +--------+ + + + + | Date | Type | Department | Care Team | Description | +--------+ + + + + | 11/10/ | Orders Only | [facility] | | | | 2016 | | NEUROSURGERY [address] | | | | | | [address] | | | | | | [place], [place] | | | | | | [address] | | | | | | [phone] | | | +--------+ + + + [...] documented as of this encounter Progress Notes Grace Madrigal - 11/10/2016 9:21 AM PDTA user error has taken place: encounter opened in error, closed for administrative reasons. Encounter opened during Med. Reconciliation in error. documented in this en counter Plan of Treatment Not on filedocumented as of this encounter Visit Diagnoses Not on filedocumented in this encounter"
--- OUTSIDE RECORDS SUMMARY | ~2020-06-17 | XMS | Encounter Summary ---
Demographics + + + | Address | [address] | | | [place] [address] | + + + | Home Phone [...] + | Author | [facility] | | | and [place] | + + + | Organization | [facility] | | | and [...] [place] | | | | | [address] | | + + + + + | Mason Fleming | ECON | Unknown | | + + + + + Care Team Providers + +------+ + | Care Supervisor [place] Department Name | Role | Phone | + +------+ + | Michael Grijalva | PCP | | | MD | | | + +------+ + Reason for Visit +--------+--------+ + | Reason | Onset | Comments | | | Date | | +--------+--------+ + | Other | 12/15/ | | | | 2013 | | +--------+--------+ + Encounter Details +--------+ + + + + | Date | Type | Department | Care Team | Description | +--------+ + + + + | 12/15/ | Telephone | [facility] | Joshua Jorge MD | Other | | 2013 | | NEUROSURGERY [address] | [address] | | | | | [address] [facility] [address] | [place] [address] | | | | | [place] | [phone] | | | | | [address] | | | | | | [phone] | | | +--------+ + + + [...] this encounter Miscellaneous Notes Telephone Encounter - Renita Sanchez RN - 12/19/2013 1:15 PM PDTReferral processed and forwarded to Dr. Jorge for review.Electronically signed by Renita Sanchez RN at 1:15 PM PDTTelephone Encounter - Marlen Santiago - 12/15/2013 11:40 AM PDTInfor mation forwarded to Yue Nunez (referrals coordinator). elephone Encounter - Izabella Turk - 12/15/2013 11:35 AM JESSICA gonzalez from [facility] called to let you know that this pt had his MRI at [facility] yesterday. documen [place] in this encounter Plan of Treatment Not on filedocumented as of this encounter Visit Diagnoses Not on filedocumented in this encounter"
--- OUTSIDE RECORDS SUMMARY | ~2020-06-17 | XMS | Encounter Summary ---
Demographics + + + | Address | [address] | | | [place] [address] | + + + | Home Phone | | + + + | Preferred Language | Unknown | + + + | Marital Status | | + + + | Mu-Ism Affiliation | 1013 | + + + | Race | White | + + + | Ethnic Group | Not or | + + + Author + + + | Author | [facility] | | | and [place] | + + + | Organization | [facility] | | | [...] [place] | | | | | [address] | | + + + + + | Mason Fleming | ECON | Unknown | | + + + + + Care Team Providers + +------+ + | Care Continuous Mining Machine Lode Miner Name | Role | Phone | + +------+ + | Michael Grijalva | PCP | | | MD | | | + +------+ + Reason for Visit + +--------+ + | Reason | Onset | Comments | | | Date | | + +--------+ + | Appointment | 04/08/ | same day injection request | | | 2015 | | + +--------+ + Encounter Details +--------+ + + + + | Date | Type | Department | Care Team | Description | +--------+ + + + + | 04/08/ | Telephone | [facility] | Lyn, | Appointment (same | | 2015 | | PHYSIATRY [address] | [address] | day injection | | | | [address] | [address] | request) | | | | [place] | [place] [address] | | | | | [address] | [phone] | | | | | [phone] | | | +--------+ + + + [...] this encounter Miscellaneous Notes Telephone Encounter - Christy Iqbal CMA - 04/08/2016 2:57 PM PDTHold placed. Electronicall y signed by Christy Iqbal CMA at 04/08/2016 3:00 PM PDTTelephone Encounter - Doreen Singh - 04/08/2016 2:33 PM PDTPatient is scheduled for follow up with Aleja on 05/11/16 at 10:00 and was told that injection would likely be at 12:30. elephone Encounter - Christy Iqbal CMA - 04/08/2016 2:20 PM PDTP enrique notify clinical staff of appointment date so we can place a hold. Thank youEduardo pascual signed by Christy Iqbal CMA at 04/08/2016 2:21 PM PDTTelephone Encounter - Aleja Nicholson PA-C - 04/08/2016 1:48 PM jose Greenberg for same day injection elephone Encounter - Doreen Singh - 04/08/2016 1:33 PM PDTPatient is requesting to schedule follow up and same-day injection a ppointment. This was done previously on 01/22/16. Please advise. documented in this encounter Plan of Treatment Not on filedocumented as of this encounter Visit Diagnoses Not on filedocumented in this encounter"
--- OUTSIDE RECORDS SUMMARY | ~2020-06-17 | XMS | Encounter Summary ---
Demographics + + + | Address | [address] | | | [place] [address] | + + + | Home Phone | | + + + | Preferred Language | Unknown | + + + | Marital Status | | + + + | Moravian Affiliation | 1013 | + + + | Race | White | + + + | Ethnic Group | Not or | + + + Author + + + | Author | [facility] | | | and [place] | + + + | Organization | [facility] | | [...] [place] | | | | | [address] | | + + + + + | Mason Fleming | ECON | Unknown | | + + + + + Care Team Providers + +------+ + | Care Archeology Professor Name | Role | Phone | + +------+ + | Michael Grijalva | PCP | | | MD | | | + +------+ + Reason for Visit + + + | Reason | Comments | + + + | Pre-op Exam | Right total hip arthroplasty DOS 09/05/19 | + + + | Hip Pain | 11/06 Bilateral | + + + Encounter Details +--------+---------+ + + + | Date | Type | Department | Care Team | Description | +--------+---------+ + + + | 08/11/ | Office | [facility] | Hollis Seaman, | Pre-op exam (Primary | | 2019 | Visit | ORTHOPEDIC SURGERY | MD [address] | Dx); Primary | | | | [address] | [place] | osteoarthritis of | | | | [place] | [phone]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; Essential | | | | [address] | | hypertension, | | | | [phone] | | benign; Thyroid | | | | | | disease; Depression, | | | | | | unspecified | | | | | | depression type; | | | | | | History of kidney | | | | | | stones; Benign | | | | | | localized | | | | | | hyperplasia of | | | | | | prostate with | | | | | | urinary obstruction | +--------+---------+ + + + Social History [...] + + + | Blood Pressure | 161/70 | 08/11/2019 10:59 AM | | | | | PST | | + + + + + | Pulse | 75 | 08/11/2019 10:59 AM | | | | | PST | | + + + + + | Temperature | 36.6 C (97.8 F) | 08/11/2019 10:59 AM | | | | | PST | | + + + + + | Respiratory Rate | - | - | | + + + + + | Oxygen Saturation | 93% | 08/11/2019 10:59 AM | | | | | PST | | + + + + + | Inhaled Oxygen | - | - | | | Concentration | | | | + + + + + | Weight | - | - | | + + + + + | Height | - | - | | + + + + + | Body Mass Index | - | - | | + + + + + documented in this encounter Patient Instructions Patient Instructions Dorian Israel RN - 08/11/2019 10:45 AM PSTPRE-OPERATIVE INSTRUC TIONS Your Surgery has been scheduled on September [facility] at [facility]. Please check-in at we will call you. Please note that your check-in time is not the time of your romero rgery. Due to possible delays, please bring something to occupy your time. REMEMBER: - NOTHING to EAT AFTER MIDNIGHT THE NIGHT PRIOR TO SURGERY! - You CAN have water up to 2 hours prior to your check in time. (ONLY WATER). - If your check-in time is before 8:00 am and you are not an early riser, we encourage you to drink a big glass of water prior to going to bed and nothing to eat or drink after midnig ht. You may have enough water to swallow your medications the morning of your surgery. - MEDICATIONS: ? TAKE (only if regularly taken in the morning): ? Levothyroxine (Levothyroid) ? Gabapentin (Neurontin) ? Escitalopram (Lexapro) ? Buprenorphine (Subtex) ? Theophylline ? Primidone ? STOP: ? All NSAIDs (aspirin, ibuprofen, naproxen) 5 days prior to surgery. Acetaminophen (Tylenol ) is ok to take. ? All vitamins/supplements 1 week prior to surgery ? SKIP: ? Lisinopril (prinvil) AM dose day of surgery - If you have a CPAP machine, please bring it with you to the hospital. - DO NOT use any lotions, colognes, perfumes, aftershaves or deodorant the morning of surge ry. Please remove all nail tamazight and acrylics. - Please leave all jewelry and valuables at home. - Contact lenses must be removed prior to surgery. Please bring your eye glasses - Please note that street clothes are NOT allowed in the OR, this includes undergarments. - YOU WILL NEED SOMEONE TO DRIVE YOU HOME AFTER DISCHARGED FROM THE HOSPITAL. (A minor is n ot appropriate) - Call the office at [phone] with any questions or concerns. ? POST-OP APPOINTMENT with Dr Seaman on September 18 at 10:30. documented in this encounter Progress Notes Hollis Seaman MD - 08/11/2019 10:45 AM PSTPatient returns preop right CHRISTIE He has made good progress in physical [...] also disc ussed today All questions answered meds reviewed Labs pending History and physical to follow 4: 03 PM PSTdocumented in this encounter Plan of Treatment + +------+--------+ + + | Name | Type | Priori | Associated Diagnoses | Order Schedule | | | | ty | | | + +------+--------+ + + | Basic Metabolic | Lab | Routin | Pre-op exam | 1 Occurrences | | Panel | | e | Essential | starting 08/11/2019 | | | | | hypertension, benign | until 08/08/2020 | | | | | Thyroid disease | | + +------+--------+ + + | Hemoglobin | Lab | Routin | Pre-op exam | 1 Occurrences | | | | e | Essential | starting 08/11/2019 | | | | | hypertension, benign | until 08/08/2020 | + +------+--------+ + + | Urinalysis with | Lab | Routin | Pre-op exam | 1 Occurrences | | Microscopic with | | e | Essential | starting 08/11/2019 | | Culture if Indicated | | | hypertension, benign | until 08/08/2020 | | | | | Thyroid disease | | | | | | Depression, | | | | | | unspecified | | | | | | depression type | | | | | | History of kidney | | | | | | stones Benign | | | | | | localized | | | | | | hyperplasia of | | | | | | prostate with | | | | | | urinary obstruction | | + +------+--------+ + + documented as of this encounter Procedures + +--------+ + + + | Procedure Name | Priori | Date/Time | Associated Diagnosis | Comments | | | ty | | | | + +--------+ + + + | ECG 12 LEAD | Routin | 08/11/2019 | Pre-op exam | Results for this | | | e | 11:05 AM | Essential | procedure are in the | | | | PST | hypertension, benign | results section. | + +--------+ + + + | CULTURE, MRSA | Routin | 08/11/2019 | Pre-op exam | Results for this | | | e | 11:02 AM | | procedure are in the | | | | PST | | results section. | + +--------+ + + + documented in this encounter Results ECG 12 lead (08/11/2019 11:05 AM PST) + + + + + + | Component | Value | Ref Range | Performed | Pathologist | | | | | At | Signature | + + + + + + | VENTRICULAR | 65 | BPM | [facility] | | | RATE EKG | | | | | + + + + + + | ATRIAL RATE | 122 | BPM | [facility] | | + + + + + + | P-R | 280 | ms | [facility] | | | INTERVAL | | | | | + + + + + + | QRS | 158 | ms | [facility] | | | DURATION | | | | | + + + + + + | Q-T | 432 | ms | [facility] | | | INTERVAL | | | | | + + + + + + | Q-T | 449 | ms | [facility] | | | INTERVAL | | | | | | (CORRECTED) | | | | | + + + + + + | P WAVE AXIS | 44 | degrees | [facility] | | + + + + + + | QRS AXIS | -69 | degrees | [facility] | | + + + + + + | T AXIS | -18 | degrees | [facility] | | + + + + + + | INTERPRETAT | Undetermined rhythm | | [facility] | | | ION TEXT | (possibly atrial | | | | | | fibrillation) | | | | | | transitioning to sinus | | | | | | rhythm with 1st degree | | | | | | AV blockRight bundle | | | | | | branch blockLeft | | | | | | anterior fascicular | | | | | | blockT wave abnormality, | | | | | | consider inferior | | | | | | ischemiaAbnormal ECGWhen | | | | | | compared with ECG of | | | | | | 06-AUG-2016 | | | | | | 13:00,Inferior T wave | | | | | | abnormalities are | | | | | | unchangedConfirmed by | | | | | | AISLINN MCCORMICK MD ([id number]) | | | | | | on 08/12/2019 6:36:39 AM | | | | | | | [...] | | | + +---------+ + + Culture, MRSA (08/11/2019 11:02 AM PST) + + + + + + | Component | Value | Ref Range | Performed | Pathologist | | | | | At | Signature | + + + + + + | Culture | Negative for MRSA by | | [facility] | | | | chromogenic agar method. | | [facility] | | | | | | [facility] | | | | | | C[facility] - | | | | | | LABORATORY | | + + + + + + | Culture | 4+ Coagulase positive | | [facility] | | | | Staphylococcus | | [facility] | | | | | | MED[facility] | | | | | | CENTER - | | | | | | LABORATORY | | + + + + + + + + | Specimen | + + | Tissue - Both | | anterior nares (body | | structure) | + + + + + + + | Performing | Address | City/State/Zipcode | Phone Number | | Organization | | | | + + + + + | [facility] | [address] | [place] | [phone] | | [facility] | | [address] | | | - LABORATORY | | | | + + + + + XR Pelvis 1 or 2 Vw (08/11/2019 [...] + | Diagnosis | + + | Pre-op exam - Primary Preoperative examination, unspecified | + + | Primary osteoarthritis of right hip Primary localized osteoarthrosis, pelvic region | | and thigh | + + | Essential hypertension, benign | + + | Thyroid disease Unspecified disorder of thyroid | + + | Depression, unspecified depression type | + + | History of kidney stones Personal history of urinary calculi | + + | Benign localized hyperplasia of prostate with urinary obstruction Benign localized | | hyperplasia of prostate with urinary obstruction and other lower urinary tract symptoms | | (LUTS) | + + documented in this encounter"
--- OUTSIDE RECORDS SUMMARY | ~2020-06-17 | XMS | Encounter Summary ---
Demographics + + + | Address | [address] | | | [place] [address] | + + + | Home Phone | | + + + | Preferred Language | Unknown | + + + | Marital Status | | + + + | Voodoo Affiliation | 1013 | + + + | Race | White | + + + | Ethnic Group | Not or | + + + Author + + + | Author | [facility] | | | and [place] [...] [place] | | | | | [address] | | + + + + + | Mason Fleming | ECON | Unknown | | + + + + + Care Team Providers + +------+ + | Care Bad Credit Collector Name | Role | Phone | + +------+ + | Michael Grijalva | PCP | | | MD | | | + +------+ + Reason for Visit + +--------+ + | Reason | Onset | Comments | | | Date | | + +--------+ + | Medication Refill | 09/21/ | | | | 2016 | | + +--------+ + Encounter Details +--------+--------+ + + + | Date | Type | Department | Care Team | Description | +--------+--------+ + + + | 09/21/ | Refill | [facility] | Joshua Jorge MD | Medication Refill | | 2016 | | NEUROSURGERY [address] | [address] | | | | | [address] | [place] [address] | | | | | [place] | [phone] | | | | | [address] | | | | | | [phone] | | | +--------+--------+ + + + [...] Telephone Encounter - Delilah Schneider RN - 09/22/2016 8:43 AM PSTPatient notified Rx brennen castano sent US Certified Mail # [phone] elephone Encounter - Jun Stout PA-C - 09/22/2016 5:49 AM PSTapproved elephone Encounter - Delilah Schneider RN - 09/21/2016 2:01 PM PSTMedication Refill Request Procedure: L2-3, L3-4, L4-5 Lateral Anterior Interbody Fusion, L5-S1 Transforaminal Lumbar Interbody Fusion, L3-4 Decompression Date of Surgery: 08/10/2016 Date of Next Office Visit: 11/10/2016 Medication requested: Hydrocodone- acetaminophen 10-325 mg Do you have a pain contract with any providers: No Are you receiving pain medication prescriptions from any other providers: No Current intake: 1-2 tablets every 4-5 hours Date of last refill: 09/16/2016 # of tabs left/or when will patient run out of this medication: 80 tablets Where is pain located? Type of pain (constant, intermittent, sharp, dull)? : See 09/17/16 o ffice visit note- reported same Send in the mail or call in to preferred pharmacy? Send via US Certified Mail Patient reported continued difficulty with insurance coverage for pain medication. Patient was told that insurance is waiting for information from our office to process PA request. Confirmed and updated patient that authorizations department called the number he provided a t his appointment ([phone]) and spoke to [place] who advised no PA needed for the medicati on as ordered. Advised patient to call insurance again and let them know that pharmacy and providers have complied with requests for information, PA has been processed twice and to ad vise what else needs to be provided (if anything) to appropriately cover pain medication. C onfirmed phone and fax # with patient. He will call back if we need to provide anything fur ther to insurance. Please approve/ deny Rx. documented in this e ncounter Plan of Treatment Not on filedocumented as of this encounter Visit Diagnoses + + | Diagnosis | + + | S/P lumbar fusion - Primary Arthrodesis status | + + documented in this encounter"
--- OUTSIDE RECORDS SUMMARY | ~2020-06-17 | XMS | Encounter Summary ---
Demographics + + + | Address | [address] | | | [place] [address] | + + + | Home Phone [...] + + | Author | [facility] | | | and [place] | + + + | Organization | [facility] | | | [...] [place] | | | | | [address] | | + + + + + | Mason Fleming | ECON | Unknown | | + + + + + Care Team Providers + +------+ + | Care Training Program Manager Name | Role | Phone | + +------+ + PCP | Unavailable | + +------+ + Encounter Details +--------+ + + + + | Date | Type | Department | Care Team | Description | +--------+ + + + + | 03/05/ | Hospital | [facility] | Peter Haney | | | 2010 | Encounter | MED CTR XRAY [address] | | | | [place] | [address] [place], [place] | | | | | [place] [address] | [address] | | | | | [phone] | | | +--------+ + + + [...] + | FL EPIDURAL STEROID | | 03/05/2011 | | Results for this | | INJECTION LUMBAR | | 12:22 PM | | procedure are in the | | TRANSFORAMINAL | | PDT | | results section. | + +--------+ + + + documented in this encounter Results FL SHIRLEY Lumbar Transforaminal (03/05/2011 12:22 PM PDT) + + | Specimen | + + | | + + + + + | Narrative | Performed At | + + + | [facility] Diagnostic Imaging Department | [facility] | | [address] [facility] | [facility] | | PROCEDURE: EPIDURAL STEROID | DIAG IMG | | INJECTION ICD-9 code 724.4, lumbar radiculitis. Mr. Dumas | | | Lonnie presents to the fluoroscopy suite for a fluoroscopically guided | | | bilateral L3-L4 tra nsforaminal epidural steroid injection as part | | | of conservative management for chronic pain, T2 lumbar | | | radiculopathy, and degenerative disk disease. After informed consent | | | was obtained, the patient lay in a prone position on the | | | fluoroscopy table. The areas were identified under fluoroscopic | | | guidance. The areas were prepped and draped in a sterile fashion. | | | A 25-gauge 1.5-inch needle was inserted int o each region and | | | approximately 3 mL of buffered 1% lidocaine was infused. Then a | | | 22-gauge spinal nee dle was inserted into the posterior superior | | | transforaminal space and advanced into the epidural spac e under | | | fluoroscopic guidance. Confirmation into the epidural space was | | | obtained with infusion of ap proximately 1 mL of Isovue contrast, | | | which showed epidural flow as well as nerve sheath flow, then a | | | combination of 2 mL of 1% lidocaine and 2 mL of 6 mg/mL Celestone was | | | infused divided between the two sides. The patient tolerated the | | | procedure well without complications. Pre- and postprocedure bloo d | | | pressures were stable. The patient was given verbal as well as | | | written followup instructions. The patient reported no significant | | | change in pain symptoms postprocedure. Prior to the start of the | | | procedure the following were performed or verified including correct | | | patien t identity, correct site and side marked and visible, | | | agreement on the procedure to be done, correct patient positioning | | | and accurate procedure consent form, and any safety precautions based | | | on clinical history and/or medications have been addressed. I | | | personally performed the procedure above. Dictated Date/Time: | | | 03/05/2011 17:41 Transcribed Date/Time: 03/05/2011 19:05 | | | Environmental Health Sanitarian: <Electronically Signed by Peter Cunha | | | MD [place]> 03/09/11 [id number] | | + + + + + | Procedure Note | + + | Pj Oliver Conversion - 10/06/2013 3:19 PM [facility] | | Diagnostic Imaging Department [address] [place] [address] | | PROCEDURE: EPIDURAL STEROID INJECTION ICD-9 code 724.4, | | lumbar radiculitis. Mr. Piter Fleming presents to the fluoroscopy suite for a | | fluoroscopically guided bilateral L3-L4 transforaminal epidural steroid injection as | | part of conservative management for chronic pain, T2 lumbar radiculopathy, and | | degenerative disk disease. After informed consent was obtained, the patient lay in a | | prone position on the fluoroscopy table. The areas were identified under fluoroscopic | | guidance. The areas were prepped and draped in a sterile fashion. A 25-gauge 1.5-inch | | needle was inserted into each region and approximately 3 mL of buffered 1% lidocaine was | | infused. Then a 22-gauge spinal needle was inserted into the posterior superior | | transforaminal space and advanced into the epidural space under fluoroscopic guidance. | | Confirmation into the epidural space was obtained with infusion of approximately 1 mL of | | Isovue contrast, which showed epidural flow as well as nerve sheath flow, then a | | combination of 2 mL of 1% lidocaine and 2 mL of 6 mg/mL Celestone was infused divided | | between the two sides. The patient tolerated the procedure well without complications. | | Pre- and postprocedure blood pressures were stable. The patient was given verbal as | | well as written followup instructions. The patient reported no significant change in | | pain symptoms postprocedure. Prior to the start of the procedure the following were | | performed or verified including correct patient identity, correct site and side marked | | and visible, agreement on the procedure to be done, correct patient positioning and | | accurate procedure consent form, and any safety precautions based on clinical history | | and/or medications have been addressed. I personally performed the procedure above. | | Dictated Date/Time: 03/05/2011 17:41Transcribed Date/Time: 03/05/2011 | | 19:05Transcriptionist: <Electronically Signed by Peter Haney MD> 03/09/11 | | [id number] | |patient positioning and accurate procedure consent form, and any safety precautions based o n clinical | | history and/or medications have been addressed. | | | |I personally performed the procedure above. | | | |Dictated Date/Time: 03/05/2011 17:41 | |Transcribed Date/Time: 03/05/2011 19:05 | |Environmental Health Sanitarian: | |<Electronically Signed by Peter Haney MD> 03/09/11 1654 | + + + +---------+ + + | Performing | Address | City/State/Zipcode | Phone Number | | Organization | | | | + +---------+ + + | [place] | | | | | [place] | | | | + +---------+ + + documented in this encounter Visit Diagnoses Not on filedocumented in this encounter"
--- OUTSIDE RECORDS SUMMARY | ~2020-06-17 | XMS | Encounter Summary ---
Demographics + + + | Address | [address] | | | [place] [address] | + + + | Home Phone | | + + + | Preferred Language | Unknown | + + + | Marital Status | | + + + | Yarsanism Affiliation | 1013 | + + + | Race | White | + + + | Ethnic Group | Not or | + + + Author + + + | Author | [facility] | | | and [place] | + + + | Organization | [facility] | | | [...] [place] | | | | | [address] | | + + + + + | Mason Fleming | ECON | Unknown | | + + + + + Care Team Providers + +------+ + | Care Principal Programmer Name | Role | Phone | + [...] | | | | | Primary | Bogdanohiren, | | | | | | osteoarthrit | Aleja, | | | | | | is of both | PA-C [address] | | | | | | hips | [address], | | | | | | Procedures | [address] | | | | | | [place] | [place] | | | | | | and/or Inj | [address] | | | | | | Major Joint | Phone: | | | | | | Left | [phone] | | | | | | | Fax: | | | | | | | [phone] | | +--------+--------+ + + + + [...] ST | | | | | | Procedures | [address] | | | | | | [place] Asp | [place], | | | | | | and/or Inj | [place] [address] | | | | | | Major Joint | Phone: | | | | | | Left | [phone] | | | | | | | Fax: | | | | | | | [phone] | | +--------+--------+ + + + + [...] [facility] | | | | | Primary | [place], | [address] | | | | | osteoarthrit | Peter Cunha MD | [place], | | | | | is of both | [address] | [place] | | | | | hips | [place] | [address] | | | | | Bilateral | [place], [place] | Phone: | | | | | hip pain | [address] | [phone] | | | | | Procedures | Phone: | Fax: | | | | | [place] | [phone] | [phone] | | | | | ARTHROCENTES | Fax: | | | | | | IS | [phone] | | | | | | ASPIR&/INJ | | | | | | | MAJOR | | | | | | | JT/BURSA W/O | | | | | | | US ME | | | | | | | TRIAMCINOLON | | | | | | | E ACET INJ | | | | | | | NOS, 10 MG | | | | | | | Bilateral | | | | | | | Intra-articu | | | | | | | lar hip | | | | | | | injection | | | +--------+--------+ + + + + Encounter Details +--------+ + + + + | Date | Type | Department | Care Team | Description | +--------+ + + + + | 06/13/ | Hospital | [facility] | Bogdanowicz, | Ischial bursitis of | | 2018 | Encounter | MED CTR XRAY [address] | MICHELLE Masterson [address] | left side; Primary | | | | [address] [place] | [address], [address] | osteoarthritis of | | | | [place] [address] | [place] [address] | both hips | | | | [phone] | [phone] | | | | | | | | | | | | [place], [facility] | | | | | | [place] [...] +---------+ + + | Blood Pressure | 170/74 | 06/13/2018 1:11 PM | | | | | PDT [...] mg by mouth | | 0 | / | | | (FLEXERIL) 10 mg | [...] + | FL ASPIRATION | Routin | 06/13/2018 | Primary | Results for this | | INJECTION MAJOR | e | 12:50 PM | osteoarthritis of | procedure are in the | | JOINT LEFT | | PDT | both hips | results section. | + +--------+ + + + | FL ASPIRATION | Routin | 06/13/2018 | Ischial bursitis | Results for this | | INJECTION MAJOR | e | 12:50 PM | of left side | procedure [...] Performed At | + + -+ | 06/13/2018 | [facility] | | Ischial Tuberosity [...] Local 1% Lidocaine | | + + -+ + +---------+ [...] + | Primary osteoarthritis of both hips Primary localized osteoarthrosis, pelvic region | | and thigh | + + documented in this encounter Administered Medications + +--------+ +-------+------+------+ | Medication Order | MAR | Action | Dose | Rate | Site | | | Action | Date | | | | + +--------+ +-------+------+------+ | iohexol (OMNIPAQUE 300) 300 | Given | 06/13/20 | 4 mLs | | | | mg/mL injection 4 mL 4 mL, | | 18 12:45 | | | | | Other, ONCE, Wed06/13/18 at | | PM PDT | | | | | 1300, For 1 dose | | | | | | + +--------+ +-------+------+------+ +---+---+ | | | +---+---+ + +-------+ +-------+---+---+ | lidocaine (PF) 1% injection 2 | Given | 06/13/20 | 2 mLs | | | | mL 2 mL, Other, ONCE, Wed | | 18 12:50 | | | | | 06/13/18 at 1300, For 1 dose, | | PM PDT | | | | | INTRAARTICULAR, | | | | | | + +-------+ +-------+---+---+ +---+---+ | | | +---+---+ + +-------+ +-------+---+---+ | lidocaine buffered 1.3% | Given | 06/13/20 | 6 mLs | | | | injection 3 mL 3 mL, Other, | | 18 12:40 | | | | | ONCE, Wed06/13/18 at 1300, For 1 | | PM PDT | | | | | dose | | | | | | + +-------+ +-------+---+---+ +---+---+ | | | +---+---+ + +-------+ +-------+---+---+ | triamcinolone acetonide | Given | 06/13/20 | 80 mg | | | | (KENALOG-40) 40 mg/mL injection | | 18 12:50 | | | | | 40 mg 40 mg, Intra-articular, | | PM PDT | | | | | ONCE, Wed06/13/18 at 1300, For 1 | | | | | | | dose, Shake well. Not for IV | | | | | | | use., | | | | | | + +-------+ +-------+---+---+ +---+---+ | | | +---+---+ documented in this encounter"
--- OUTSIDE RECORDS SUMMARY | ~2020-06-17 | XMS | Encounter Summary ---
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, | | | | | | Ischial | Ana Cristina | | | | | | bursitis of | MICHELLE Campbell | | | | | | left side | [address] | | | | | | Procedures | [address] | | | | | | [place] [address] | [address] | | | | | | and/or Inj | [address] | | | | | | Major Joint | [place], | | | | | | Left | [place] [address] | | | | | | | Phone: | | | | | | | [phone] | | | | | | | Fax: | | | | | | | [phone] | | +--------+--------+ + + + + Reason for Visit + + + | Reason | Comments | + + + | Follow-up | | + + + | Injections | | + + + Follow Up (Routine) [...] n | tendonitis | [address] | [address] | | | | | of right | Monique Kenyon | [place] | | | | | buttock | [place], | [address] Phone: | | | | | Ischial | [place] | [phone] | | | | | bursitis of | [address] | Fax: | | | | | left side | Phone: | [phone] | | | | | Thoracic | [phone] | | | | | | spine pain | Fax: | | | | | | Right hip | [phone] | | | | | | pain [...] Description | +--------+---------+ + + + | 01/30/ | Office | [facility] [place] | Ana Cristina Tiwari | Ischial bursitis of | | 2020 | Visit | PHYSIATRY [address] | [address] | left side (Primary | | | | [address] | [facility] SUITE | Dx) | | | | [place] | [address] | | | | | [address] | [address] | | | | | [phone] | | | +--------+---------+ + + + [...] + + + | Blood Pressure | 110/54 | 01/31/2020 11:14 AM | | | | | PDT | | + + + + + | Pulse | 58 | 01/31/2020 11:14 AM | | | | | PDT | | + + + + + | Temperature | 36.4 C (97.5 F) | 01/31/2020 11:14 AM | | | | | PDT | | + + + + + | Respiratory Rate | 16 | 01/31/2020 11:14 AM | | | | | PDT | | + + + + + | Oxygen Saturation | - | - | | + + + + + | Inhaled Oxygen | - | - | | | Concentration | | | | + + + + + | Weight | 117.9 kg (260 lb) | 01/31/2020 11:14 AM | | | | | PDT | | + + + + + | Height | 185.4 cm (6' 1") | 01/31/2020 11:14 AM | | | | | PDT | | + + + + + | Body Mass Index | 34.3 | 01/31/2020 11:14 AM | | | | | PDT | | + + + + + documented in this encounter Patient Instructions Patient Instructions Ana Cristina Tiwari PA-C - 01/31/2020 11:00 AM PDT Follow-up at the hospital thirty minutes before [...] of the procedure you must provide a trash truck driver to take you home. For all procedur es it is recommended that someone else drive you home. documented in this encounter Progress Notes Ana Cristina Tiwari PA-C - 01/31/2020 11:00 AM PDTFormatting of this note might be diffe rent from the original. Afsaneh Tiwari PA-C [address] [facility], [address] [place], [place] [id number] FAX: CHIEF COMPLAINT: Chief Complaint Patient presents with Follow-up Injections HISTORY OF PRESENT ILLNESS: Piter Fleming is a 74 y.o. male being seen today in follow-up for complaints of low b ack pain. Patient has hx of L1-S1 fusion. The patient has been seen for this complaint in e past. Previously it was recommended that he have ischial bursa injection that were done o n 08/03/19 and bilateral on 11/02/19. He did report significant relief from this injection for about 6 weeks and would like left side repeated today. The patient also had right hip replacement with Dr. Seaman August 2019. Patient has had several SI injections, trochanteric bursa injections. Patient was previously offered the co nsideration of spinal cord stimulator and referral to neuropsych was placed. The patient re ports that he was in the process of being evaluated for hip replacement and felt like spinal cord stimulation was not as urgent. At this point he is still preoccupied with other medic al issues including tremors that will be evaluated at [facility] in the near future. He would lik e to put spinal cord stimulation on the back burner. Overall the patient reports that the symptoms show no change. He rates the pain as moderat e. He describes the pain as aching, sharp, throbbing or radiating to bilateral hips and bu ttocks. Symptoms remain in the buttock region. His symptoms worsen with prolonged sitting. His symptoms improve [...] anesthesia. Treatments for these complaints have included PT, injections, medications, chiropractic, T ENS unit. Patient's medications, allergies, past medical, surgical, social [...] Last attempt to quit: 08/30/1980 Years since quittin.4 Smokeless tobacco: Never Used Substance and Sexual Activity Alcohol use: Yes Alcohol/week: 0.0 standard drinks Comment: Rarely/Socially Drug use: No Sexual activity: Yes Comment: Rarely Lifestyle Physical activity: Days per week: Not on file Minutes per session: Not on file Stress: Not on file Relationships Social connections: Talks on phone: Not on file Gets together: Not on file Attends jainism service: Not on file Active member of [...] and weight loss. Musculoskeletal: Positive for back pain, joint pain and myalgias. Negative for falls and ne ck pain. Neurological: Positive for tingling and sensory change. Negative for dizziness, tremors, sp eech change, focal weakness, seizures, loss of consciousness, weakness and headaches. PHYSICAL EXAMINATION: Blood pressure 110/54, pulse 58, temperature 36.4 C (97.5 F), resp. rate 16, height 1.8 54 m (6' 1"), weight 117.9 kg (260 [...] has no apparent deficits with short or retirement memory. The cranial nerves appear grossly intact. Sensory exam does show diminished sensation to light touch in the leg(s). MUSCULOSKELETAL : Straight leg raise and slump-sit are negative. There was no tenderness to palpation over the greater trochanters. Patient does have ml d tenderness of the bilateral SI joint and left ischial bursa. The patient localized the majority of the pain to the buttock region. Lumbar facet loading was negative. There was no redness, effusion, warmth or [...] hip OA and bursitic changes. ASSESSMENT: Encounter Diagnosis Name Primary? Ischial bursitis of left side Yes PLAN: 1) Today we discussed the patient's [...] PT (multiple sessions over the years) and adult day care worker. Unfortunately Piter Richardson continues to have significant discomfort. It appears to me that the pain is prim arily coming from left ischial bursa. I did feel that Piter Fleming would be a good candidate for SCS trial however his med ica care is complicated right now with a recent right hip replacement with Dr. Seaman and a [facility] referral for tremors that he would like [...] and coordinating his care. ELECTRONICALLY SIGNED BY: Afsaneh Tiwari PA-C, 01/31/2020 documented in this encounter Plan of Treatment Not on filedocumented as of this encounter Results FL Asp and/or Inj Major Joint Left (01/31/2020 12:40 PM PDT) + + | Specimen | + + | | + + + + -+ | Narrative | Performed At | + + -+ | 01/31/2020 | [facility] | | Ischial Tuberosity [...] left side - Primary | + + documented in this encounter
--- OUTSIDE RECORDS SUMMARY | ~2020-06-17 | XMS | Encounter Summary ---
Demographics + + + | Address | [address] | | | [place] [address] | + + + | Home Phone | | + + + | Preferred Language | Unknown | + + + | Marital Status | | + + + | Caodaism Affiliation | 1013 | + + + [...] [place] | | | | | [address] | | + + + + + | Mason Fleming | ECON | Unknown | | + + + + + Care Team Providers + +------+ + | Care Flat Sorter Processor Name | Role | Phone | + [...] Thoracic or | [place], | [address] | | | | | lumbosacral | Peter Cunha MD | [place], | | | | | neuritis or | [address] | [place] | | | | | | [place] | [address] | | | | | radiculitis, | [place], [place] | Phone: | | | | | unspecified | [address] | [phone] | | | | | Procedures | Phone: | Fax: | | | | | [place] INJECT | [phone] | [phone] | | | | | ANES/STEROID | Fax: | | | | | | FORAMEN | [phone] | | | | | | LUMBAR/SACRA | | | | | | | L W IMG | | | | | | | GUIDE ,1 | | | | | | | LEVEL [place] | | | | | | | TRIAMCINOLON | | | | | | | E ACET INJ | | | | | | | NOS, 10 MG | | | | | | | Bilateral | | | | | | | L3-L4 TFESI | | | | | | | Appt 04/25 | | | +--------+--------+ + + + + Encounter Details +--------+ + + + + | Date | Type | Department | Care Team | Description | +--------+ + + + + | 04/25/ | Hospital | [facility] | Lyn, | BACK PAIN, LUMBAR | | 2013 | Encounter | MED CTR XRAY [address] | MICHELLE Masterson [address] | (Primary Dx); Spinal | | | | [address] [place] | [facility], [address] | stenosis of lumbar | | | | [place] [address] | [place] [address] | - worst at the L2-L3 | | | | [phone] | [phone] | and L3-L4 levels. | | | | | | This would be | | | | | Senior Technical Support Analyst Ws | classified as | | | | | [place] | severe.; Lumbar | | | | | | radiculopathy | +--------+ + + + + Social [...] +---------+ + + | Blood Pressure | 146/81 | 04/25/2014 12:00 PM | | | | | PDT | | + +---------+ + + | Pulse | 53 | 04/25/2014 12:00 PM | | | | | PDT [...] 0 | 05/13/20 | | | (D3-50) [id number] UNITS | week. | | | 12 [...] + +---------+ + + | gabapentin | 1 tab at night x 3 | 60 | 2 | 03/26/20 | | | (NEURONTIN) 300 mg | days, then 2 tabs at | capsule | | 14 | 4 | | capsule | night for | | | | | | | peripheral | | | | | | | neuropathy, lumbar | | | | | | | radiculopathy, back | | | | | | | [...] + +---------+ + + | topiramate | 2 tablet at at | | 0 | [...] documented as of this encounter Miscellaneous Notes Miscellaneous - RICHARD MOON - 05/07/2014 12:00 AM PDT documented in this encounter Plan of Treatment Not on filedocumented as of this encounter Procedures + +--------+ + + + | Procedure Name | Priori | Date/Time | Associated Diagnosis | Comments | | | ty | | | | + +--------+ + + + | FL EPIDURAL STEROID | Routin | 04/25/2014 | BACK PAIN, LUMBAR | Results for this | | INJECTION LUMBAR | e | 1:23 PM | Spinal stenosis of | procedure are in the | | TRANSFORAMINAL | | PDT | lumbar - worst at | results section. | | | | | the L2-L3 and L3-L4 | | | | | | levels. This would | | | | | | be classified as | | | | | | severe. | | + +--------+ + + + documented in this encounter Results FL SHIRLEY Lumbar Transforaminal (04/25/2014 1:23 PM PDT) + + | Specimen | + + | | + + + + + | Narrative | Performed At | + + + | 04/25/2014 Bilateral Transforaminal Epidural Steroid Injections | [facility] | | Diagnosis: Lumbar radiculopathy ICD-9 Code 724.4 Piter Reich | [facility] | | Lonnie presents to the fluoroscopy suite for fluoroscopically-guided | [facility] | | bilateral L3-L4 transforaminal epidural steroid [...] + + | Peter Haney MD - 04/25/2014 1:42 PM PDT 04/25/2014ilateral Transforaminal | | Epidural Steroid InjectionsDiagnosis: Lumbar [...] | + + + + + | [facility] | [address] | [place] | [phone] | | [facility] | | [address] | | | - IMAGING | | | | + + + + + documented in this encounter Visit Diagnoses + + | Diagnosis | + + | BACK PAIN, LUMBAR - Primary Lumbago | + + | Spinal stenosis of [...] + | betamethasone (CELESTONE | Given | 04/25/20 | 12 mg | | Other | | SOLUSPAN) injection 12 mg 12 mg, | | 14 1:30 | | | (Comment | | Intramuscular, EVERY 24 HOURS | | PM PDT | | | ) | | INTERVAL, First dose on Wed | | | | | | | 04/25/14 at 1330, For 2 doses, | | | | | | | Shake well. Not for IV use., | | | | | | + +--------+ +-------+------+ + +---+---+ | | | +---+---+ + +-------+ +-------+---+---+ | iohexol (OMNIPAQUE 300) 300 | Given | 04/25/20 | 4 mLs | | | | mg/mL injection 4 mL 4 mL, | | 14 1:30 | | | | | INTRATHECAL, ONCE, 04/25/14 at | | PM PDT | | | | | 1330, For 1 dose | | | | | | + +-------+ +-------+---+---+ +---+---+ | | | +---+---+ + +-------+ +-------+---+ + | lidocaine 1% injection 5 mL 5 | Given | 04/25/20 | 5 mLs | | Other | | mL, Intradermal, ONCE, Wed | | 14 1:30 | | | (Comment | | 04/25/14 at 1330, For 1 dose | | PM PDT | | | ) | + +-------+ +-------+---+ + +---+---+ | | | +---+---+ documented in this encounter"
--- OUTSIDE RECORDS SUMMARY | ~2020-06-17 | XMS | Encounter Summary ---
Demographics + + + | Address | [address] | | | [place] [address] | + + + | Home Phone | | + + + | Preferred Language | Unknown | + + + | Marital Status | | + + + | Rastafari Affiliation | 1013 | + + + | Race | White | + + + | Ethnic Group | Not or | + + + Author + + + | Author | [facility] | | | and [place] | + + + | Organization | [facility] | | | [...] [place] | | | | | [address] | | + + + + + | Mason Fleming | ECON | Unknown | | + + + + + Care Team Providers + +------+ + | Care Point Of Care Technician Name | Role | Phone | + +------+ + PCP | Unavailable | + +------+ + Encounter Details +--------+ + + + + | Date | Type | Department | Care Team | Description | +--------+ + + + + | 03/05/ | Hospital | [facility] | Jeremy Cortes | | | 2009 | Encounter | MED CTR XRAY [address] | F, MD [address] | | | | | [address] [place] | [address] [place], [place] | | | | | [place] [address] | [address] | | | | | [phone] | [phone] | | | | | | | [...]
--- OUTSIDE RECORDS SUMMARY | ~2020-06-17 | XMS | Clinical Summary ---
Demographics + + + | Address | [address] | | | [place] [address] | + + + | Home Phone [...] + | Author | [facility] | [...] [place] | | | | | [address] | | + + + + + | Mason Fleming | ECON | Unknown | | + + + + + Care Team Providers + +------+ + | Care Stonecutter Name | Role | Phone | + +------+ + | Michael Grijalva | PCP | | | MD | | | + +------+ + Allergies + + + + + + | Active Allergy | Reactions | Severity | Noted | Comments | | | | | Date | | + + + + + + | Latex | Rash | Low | 08/06/20 | Elastic in his | | | | | 16 | sock's cause a rash | + + + + + + | Nsaids | Other (See Comments) | Low | 03/09/20 | Unable to take due | | | | | 14 | to Gastric Bypass | | | | | | Surgery | + + + + + + Medications + + + +---------+------+------+-------+ | Medication | Sig | Dispensed | Refills | Star | End | Statu | | | | | | t | Date | s | | | | | | Date | | | + + + +---------+------+------+-------+ | vitamin B-12 | Take 1,000 mcg by | | 0 | 04/30 | | Activ | | (CYANOCOBALAMIN) | mouth Daily. | | | 12/17 | | e | | 1000 MCG tablet | | | | 12 | | | + + + +---------+------+------+-------+ | primidone | Take 4 by mouth | | 0 | 08/31 | | Activ | | (MYSOLINE) 50 mg | daily at bedtime for | | | 02/16 | | e | | tablet | 5 days then | | | 11 | | | | | increase to 5 by | | | | | | | | mouth daily at | | | | | | | | bedtime for tremors | | | | | | + + + +---------+------+------+-------+ +---+ + | | Additional | | | InformationPatient | | | taking differently: | | | 50 mg Oral NIGHTLY, | | | Five tablets at | | | night, Reason: Not | | | Available, Reported | | | on 09/04/2019 3:27 PM | +---+ + + + +---+---+------+---+-------+ | multivitamin | Take 1 tablet by | | 0 | 09/1 | | Activ | | (THERAGRAN) per | mouth daily | | | 4/20 | | e | | tablet | | | | 12 | | | + + +---+---+------+---+-------+ | iron | Take 150 mg by mouth | | 0 | 09/1 | | Activ | | polysaccharides | Daily. | | | 4/20 | | e | | (NU-IRON) 150 MG | | | | 12 | | | | capsule | | | | | | | + + +---+---+------+---+-------+ | fluocinonide | two times a day | | 0 | 09/1 | | Activ | | (LIDEX) 0.05 % | | | | 4/20 | | e | | ointment | | | | 12 | | | + + +---+---+------+---+-------+ | tamsulosin | Take 0.4 mg by mouth | | 0 | 09/1 | | Activ | | (FLOMAX) 0.4 mg CAPS | Daily. | | | 4/20 | | e | | | | | | 12 | | | + + +---+---+------+---+-------+ +---+ + | | Additional | | | InformationPatient | | | taking differently: | | | 0.8 mg Oral NIGHTLY, | | | Reason: Not | | | Available, Reported | | | on 09/04/2019 3:27 PM | +---+ + + + +---------+---+------+---+-------+ | finasteride | Take 5 mg by mouth | | 0 | | | Activ | | (PROSCAR) 5 mg | Daily. | | | | | e | | tablet | | | | | | | + + +---------+---+------+---+-------+ | ergocalciferol | Take 50,000 Units by | | 0 | | | Activ | | (VITAMIN D-2) 50,000 | mouth Once a week. | | | | | e | | units capsule | | | | | | | + + +---------+---+------+---+-------+ | DHEA 50 MG TABS | Take 100 mg by mouth | | 0 | | | Activ | | | Daily. | | | | | e | + + +---------+---+------+---+-------+ | escitalopram | Take 40 mg by mouth | | 0 | | | Activ | | (LEXAPRO) 20 mg | Daily. | | | | | e | | tablet | | | | | | | + + +---------+---+------+---+-------+ | gabapentin | TAKE 2 TABLETS BY | 180 | 4 | 10/01 | | Activ | | (NEURONTIN) 300 mg | MOUTH NIGHTLY FOR | capsule | | 12/17 | | e | | capsule | NEUROPATHIC PAIN | | | 17 | | | + + +---------+---+------+---+-------+ +---+ + | | Additional | | | InformationPatient | | | taking differently: | | | 900 mg Oral 3 TIMES | | | DAILY, Reason: Not | | | Available, Reported | | | on 05/02/2020 11:58 AM | +---+ + + + +---------+---+------+---+-------+ | potassium chloride | Take 10 mEq by mouth | | 0 | 03/1 | | Activ | | (KLOR-CON) 10 mEq | as needed. | | | 0/20 | | e | | CR tablet | | | | 17 | | | + + +---------+---+------+---+-------+ | furosemide (LASIX) | Take 40 mg by mouth | | 0 | 03/1 | | Activ | | 20 mg tablet | 2 times daily . | | | 0/20 | | e | | | | | | 17 | | | + + +---------+---+------+---+-------+ | cyclobenzaprine | Take 10 mg by mouth | | 0 | 05/2 | | Activ | | (FLEXERIL) 10 mg | as needed. | | | 9/20 | | e | | tablet | | | | 18 | | | + + +---------+---+------+---+-------+ | buprenorphine | Place 8 mg under the | | 0 | 10/1 | | Activ | | (SUBUTEX) 8 mg SUBL | tongue. 3-4 tabs | | | 2/20 | | e | | | daily | | | 19 | | | + + +---------+---+------+---+-------+ | docusate sodium | Take 200 mg by mouth | 60 | 0 | 01/0 | | Activ | | (COLACE) 100 MG | 2 times daily. | capsule | | 9/20 | | e | | capsule | | | | 20 | | | + + +---------+---+------+---+-------+ | levothyroxine | Take 175 mcg by | | 0 | | | Activ | | (SYNTHROID) 175 mcg | mouth every morning | | | | | e | | tablet | (before breakfast). | | | | | | + + +---------+---+------+---+-------+ | clobetasol | | | 0 | 01/2 | | Activ | | (TEMOVATE) 0.05% | | | | 4/20 | | e | | cream | | | | 20 | | | + + +---------+---+------+---+-------+ | XARELTO 15 MG | Take 15 mg by mouth | | 0 | 01/29 | | Activ | | tablet | Daily . | | | 01/16 | | e | | | | | | 20 | | | + + +---------+---+------+---+-------+ Active Problems + + + | Problem | Noted Date | + + + | At risk for aspiration | 09/07/2019 | + + + + + | Overview: With LMA in place for CHRISTIE in 08/2019, had emesis | | into oral cavity with aspiration risk. Did not become | | symptomatic but may be better suited for ETT in lieu of LMA in | | the future. | + + + + + | Anesthesia complication, initial encounter | 09/07/2019 | + + + + + | Overview: With LMA in place for CHRISTIE in 08/2019, had emesis | | into oral cavity with aspiration risk. Did not become | | symptomatic but may be better suited for ETT in lieu of LMA in | | the future. | + + + + + | Trochanteric bursitis, right hip | 02/23/2019 | + + + | Ischial bursitis of right side | 10/18/2018 | + + + | Right hip pain | 10/18/2018 | + + + | Bilateral hip joint arthritis | 06/13/2018 | + + + | Ischial bursitis of left side | 02/16/2018 | + + + | Primary osteoarthritis of right hip | 02/16/2018 | + + + | HTN (hypertension) | 07/06/2017 | + + + | S/P lumbar fusion | 09/17/2016 | + + + | Lumbar scoliosis | 06/03/2016 | + + + | Flat back syndrome, acquired | 06/03/2016 | + + + | Facet arthropathy, lumbar | 06/03/2016 | + + + | ERRONEOUS ENCOUNTER--DISREGARD | 05/07/2015 | + + + | TREMOR, ESSENTIAL | | + + + | PERIPHERAL NEUROPATHY | | + + + | LUMBAR RADICULOPATHY | | + + + | Spinal stenosis, lumbar region, with neurogenic claudication | | + + + | OSTEOARTHRITIS, KNEE | | + + + | Degenerative disc disease lumbar spine | | + + + | BACK PAIN, LUMBAR | | + + + | OSTEOARTHRITIS, LUMBOSACRAL SPINE | | + + + | SLEEP APNEA, OBSTRUCTIVE, SEVERE | | + + + | DDD (degenerative disc disease), lumbar | | + + + | SCOLIOSIS | | + + + | Depression | | + + + | Thyroid disease | | + + + | Essential hypertension, benign | | + + + | Asthma, intrinsic | | + + + | Sleep apnea | | + + + | Benign localized hyperplasia of prostate with urinary obstruction | | + + + Encounters +--------+ + + + + | Date | Type | Specialty | Care Team | Description | +--------+ + + + + | 05/02/ | Hospital | Radiology | Efraín Turk, | Ischial bursitis of | | 2019 | 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, | 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; Ischial | | | | | [facility] | bursitis of right | | | | | | side | +--------+ + + + + | 05/02/ | Office | Physical Medicine | Efrían Turk, | S/P lumbar fusion | 2019 | Visit | and Rehabilitation | PA-C | (Primary Dx); | | | | | | Ischial bursitis of | | | | | | left side; Ischial | | | | | | bursitis of right | | | | | | side; Lumbar | | | | | | radiculopathy; | | | | | | Sacroiliitis, not | | | | | | elsewhere classified | | | | | | ([facility]) | +--------+ + + + + | 04/11/ | Telephone | Physical Medicine | Ana Cristina Tiwari | Other | | 2020 | | and Rehabilitation | MICHELLE Campbell | | +--------+ + + + + from Last 3 Months Family History + + +------+ + | Medical History | Relation | Name | Comments | + + +------+ + | High blood pressure | Father | | | + + +------+ + | Other (see comment) | Father | | kidney failure | + + +------+ + | No known problems | Maternal | | | | | Grandfath | | | | | er | | | + + +------+ + | No known problems | Maternal | | | | | Grandmoth | | | | | er | | | + + +------+ + | Arthritis | Other | | | + + +------+ + | Diabetes | Other | | | + + +------+ + | Gout | Other | | | + + +------+ + | Heart defect | Other | | | + + +------+ + | No known problems | Paternal | | | | | Grandfath | | | | | er | | | + + +------+ + | No known problems | Paternal | | | | | Grandmoth | | | | | er | | | + + +------+ + + +------+ + + | Relation | Name | Status | Comments | + +------+ + + | Brother | | | Blood Poisioning | | | | (Age | | | | | 28) | | + +------+ + + | Brother | | Alive | Brain Tumor | + +------+ + + | Brother | | Alive | | + +------+ + + | Brother | | Alive | | + +------+ + + | Daughter | | Alive | | + +------+ + + | Father | | | Kidney Failure | | | | (Age | | | | | 80) | | + +------+ + + | Maternal Grandfather | | Other | no listed | + +------+ + + | Maternal Grandmother | | Other | no listed | + +------+ + + | Mother | | Alive | | + +------+ + + | Other | | | | + +------+ + + | Other | | | | + +------+ + + | Other | | | | + +------+ + + | Other | | | | + +------+ + + | Paternal Grandfather | | Other | no listed | + +------+ + + | Paternal Grandmother | | Other | no listed | + +------+ + + | Son | | Alive | | + +------+ + + Social History + +-------+ +--------+ [...] + + + Last Filed Vital Signs + + + [...] | | + + + + + Plan of Treatment + + + + + | Health Maintenance | Due Date | Last | Comments | | | | Done | | + + + + + | Hepatitis C | | | | | Screening | 7 | | | + + + + + | Med Mgmt: Primidone | | | | | | 7 | | | + + + + + | Med Mgmt: TSH | | | | | | 7 | | | + + + + + | Med Mgmt: Vit D | | | | | | 7 | | | + + + + + | Medication | | | | | Management | 7 | | | + + + + + | Urine Drug Screening | | | | | | 3 | | | + + + + + | Vaccine: | | | | | Dtap/Tdap/Td (1 - | 6 | | | | Tdap) | | | | + + + + + | Vaccine: | | | | | Pneumococcal 65+ (1 | 2 | | | | of 1 - PPSV23) | | | | + + + + + | Adult Annual | | | | | Wellness Visit | 5 | | | + + + + + | Vaccine: Zoster (3 | | 09/18/19 | | | of 3) | 0 | 20, | | | | | 02/03/20 | | | | | 13 | | + + + + + | Vaccine: Influenza | | 06/21/20 | | | (#1) | 0 | 19, | | | | | 07/05/20 | | | | | 18, | | | | | 09/06/19 | | | | | 18 | | + + + + + | Med Mgmt: PLT | | 08/11/20 | | | | 0 | 19, | | | | | 08/06/20 | | | | | 16 | | + + + + + | Med Mgmt: RBC | | 08/11/20 | | | | 0 | 19, | | | | | 08/06/20 | | | | | 16 | | + + + + + | Med Mgmt: WBC | | 08/11/20 | | | | 0 | 19, | | | | | 08/06/20 | | | | | 16 | | + + + + + | Med Mgmt: Cr | | 09/07/19 | | | | 1 | 20, | | | | | 09/06/19 | | | | | 20, | | | | | 08/11/20 | | | | | 19, | | | | | Addition | | | | | al | | | | | history | | | | | exists | | + + + + + | Med Mgmt: HCT | | 09/07/19 | | | | 1 | 20, | | | | | 09/06/19 | | | | | 20, | | | | | 08/11/20 | | | | | 19, | | | | | Addition | | | | | al | | | | | history | | | | | exists | | + + + + + | Med Mgmt: HGB | | 09/07/19 | | | | 1 | 20, | | | | | 09/06/19 | | | | | 20, | | | | | 08/11/20 | | | | | 19, | | | | | Addition | | | | | al | | | | | history | | | | | exists | | + + + + + | Med Mgmt: K | | 09/07/19 | | | | 1 | 20, | | | | | 09/06/19 | | | | | 20, | | | | | 08/11/20 | | | | | 19, | | | | | Addition | | | | | al | | | | | history | | | | | exists | | + + + + + | Med Mgmt: Na | | 09/07/19 | | | | 1 | 20, | | | | | 09/06/19 | | | | | 20, | | | | | 08/11/20 | | | | | 19, | | | | | Addition | | | | | al | | | | | history | | | | | exists | | + + + + + | Med Mgmt: eGFR | | 09/07/19 | | | | 1 | 20, | | | | | 09/06/19 | | | | | 20, | | | | | 08/11/20 | | | | | 19, | | | | | Addition | | | | | al | | | | | history | | | | | exists | | + + + + + | Colorectal Cancer | | 06/30/20 | | | Screening | 1 | 11 | | | (Colonoscopy) | | | | + + + + + | AAA Screening | Completed | 05/23/20 | | | | | 12 | | + + + + + Implants + +--------+--------+ +--------+--------+--------+ | Implanted | Type | Area | Manufacture | Device | Shelf | Model | | | | | r | | Expira | / | | | | | | Identi | tion | Serial | | | | | | fier | Date | / Lot | + +--------+--------+ +--------+--------+--------+ | Bone Canc Chip 1.7-10 15cc - | Bone | Left: | [employer] - | | 09/15/ | [id number] | | [id number]: Qty: 1 on | | Spine | MEDT | | 2020 | | | 08/10/2016 by Joshua Jorge, | | Lumbar | | | | /[id number] | | MD at [facility] | | | | | | [id number] | | [facility] | | | | | | / | + +--------+--------+ +--------+--------+--------+ | Imp Spn Spcr Christopher [id number] | Generi | Left: | NUVASIVE - | | | [id number] | | 20d - [id number]: | c | Spine | NVSV | | | 0 / / | | Qty: 1 on 08/10/2016 by Luisito, | | Lumbar | | | | | | Joshua López MD at [facility] | | | | | | | | [facility] | | | | | | | + +--------+--------+ +--------+--------+--------+ | Cristofer Ti Prebent Lordtc 160mm - | Generi | Left: | NUVASIVE - | | | [id number] | | [id number]: Qty: 2 | c | Spine | NVSV | | | 0 / / | | on 08/10/2016 by Joshua Jorge | | Lumbar | | | | | | MD Rene at [facility] | | | | | | | | [facility] | | | | | | | + +--------+--------+ +--------+--------+--------+ | Imp Spn Intbdy Xlw [id number] | Generi | Left: | NUVASIVE - | | | [id number] | | - [id number]: Qty: 1 | c | Spine | NVSV | | | 0 / / | | on 08/10/2016 by Joshua Jorge | | Lumbar | | | | | | MD Rene at [facility] | | | | | | | | [facility] | | | | | | | + +--------+--------+ +--------+--------+--------+ | Imp Spn Intbdy Xlw | Generi | Left: | NUVASIVE - | | | [id number] | | [id number] - | c | Spine | NVSV | | | 0 / / | | [id number]: Qty: 1 on | | Lumbar | | | | | | 08/10/2016 by Joshua Jorge | | | | | | | | at [facility] | | | | | | | | [facility] | | | | | | | + +--------+--------+ +--------+--------+--------+ | Shell Acet Pps G7 52e Ltd - | Generi | Right: | ANGELA - | | 02/23/ | [id number] | | Sn/AImplanted: Qty: 1 on | c | Hip | ZIM | | 2028 | 663 | | 09/05/2019 by Hollis Seaman | | | | | | /N/A | | MD Anne-Marie at [facility] | | | | | | /[id number] | | [facility] | | | | | | 11 | + +--------+--------+ +--------+--------+--------+ | Liner Lizabeth Dl Mob 42mm E - | Generi | Right: | ANGELA - | | 03/21/ | [id number] | | Sn/AImplanted: Qty: 1 on | c | Hip | ZIMM | | 2028 | 463 | | 09/05/2019 by Hollis Seaman | | | | | | /N/A | | MD Anne-Marie at [facility] | | | | | | /[id number] | | [facility] | | | | | | 0 | + +--------+--------+ +--------+--------+--------+ | Imp Hip Fem Hd Crmx 28 Pls5 - | Generi | Right: | HAYDEEHCS DEPUY | | 06/29/ | [id number] | | Sn/AImplanted: Qty: 1 on | c | Hip | ORTHO - | | 2023 | 8-320 | | 09/05/2019 by Hollis Seaman | | | DEPU | | | /N/A | | MD Anne-Marie at [facility] | | | | | | /[id number] | | [facility] | | | | | | 02 | + +--------+--------+ +--------+--------+--------+ | Imp Hip Fem Stem Actis Hi Sz5 | Generi | Right: | HAYDEEHCS DEPUY | | 06/29/ | [id number] | | - Sn/AImplanted: Qty: 1 on | c | Hip | ORTHO - | | 2028 | 050 | | 09/05/2019 by Hollis Seaman | | | DEPU | | | /N/A | | EMD at [facility] | | | | | | /[id number] | | [facility] | | | | | | N | + +--------+--------+ +--------+--------+--------+ | Imp Hip Bear [id number] Biom - | Generi | Right: | ANGELA - | | 03/18/ | XL-200 | | Sn/AImplanted: Qty: 1 on | c | Hip | ZIMM | | 2023 | 148 | | 09/05/2019 by Hollis Seaman | | | | | | /N/A | | MD Anne-Marie at [facility] | | | | | | /[id number] | | [facility] | | | | | | 0 | + +--------+--------+ +--------+--------+--------+ | Putty Beckham 10cc Dbm - | Graft | Left: | [employer] - | | 12/15/ | [id number] | | [id number]: Qty: 1 on | | Spine | MEDT | | 2019 | | | 08/10/2016 by Joshua Jorge, | | Lumbar | | | | /[id number] | | at [facility] | | | | | | 7-038 | | [facility] | | | | | | / | + +--------+--------+ +--------+--------+--------+ | Graft Infuse Bone Kit Xs - | Graft | Left: | SOFAMOR | | 05/29/ | [id number] | | [id number]: Qty: 1 on | | Spine | DANEK - DIV | | 2016 | 0 / | | 08/10/2016 by Joshua Jorge, | | Lumbar | [employer] | | | /[id number] | | MD at [facility] | | | - SFDK | | | [id number] | | [facility] | | | | | | | + +--------+--------+ +--------+--------+--------+ | Graft Infuse Bone Kit Xxs - | Graft | Left: | SOFAMOR | | 05/29/ | [id number] | | [id number]: Qty: 1 on | | Spine | DANEK - DIV | | 2016 | 0 / | | 08/10/2016 by Joshua Jorge, | | Lumbar | [employer] | | | /[id number] | | MD at [facility] | | | - SFDK | | | [id number] | | [facility] | | | | | | | + +--------+--------+ +--------+--------+--------+ | Putty Beckham 5cc Dbm - | Graft | Left: | [employer]IC - | | 08/19/ | [id number] | | [id number]: Qty: 1 on | | Spine | MEDT | | 2017 | /[id number] | | 08/10/2016 by Joshua Jorge, | | Lumbar | | | | 6-024 | | at [facility] | | | | | | / | | [facility] | | | | | | | + +--------+--------+ +--------+--------+--------+ | Graft Infuse Bone Kit Xs - | Graft | Left: | SOFAMOR | | 05/29/ | [id number] | | [id number]: Qty: 1 on | | Spine | DANEK - DIV | | 2016 | 0 / | | 08/10/2016 by Joshua Jorge, | | Lumbar | [employer] | | | /[id number] | | MD at [facility] | | | - SFDK | | | [id number] | | [facility] | | | | | | | + +--------+--------+ +--------+--------+--------+ | Screw Polyax Precept 6.5x55 - | Screw | Left: | NUVASIVE - | | | [id number] | | [id number]: Qty: 2 | | Spine | NVSV | | | 5A / / | | on 08/10/2016 by Joshua Jorge | | Lumbar | | | | | | MD Rene at [facility] | | | | | | | | [facility] | | | | | | | + +--------+--------+ +--------+--------+--------+ | Screw Polyax Precept 7.5x55 - | Screw | Left: | NUVASIVE - | | | [id number] | | [id number]: Qty: 2 | | Spine | NVSV | | | 5A / / | | on 08/10/2016 by Joshua Jorge | | Lumbar | | | | | | MD Rene at [facility] | | | | | | | | [facility] | | | | | | | + +--------+--------+ +--------+--------+--------+ | Screw Polyax Prcpt 8.5x55mm - | Screw | Left: | NUVASIVE - | | | [id number] | | [id number]: Qty: 2 | | Spine | NVSV | | | 5A / / | | on 08/10/2016 by Joshua Jorge | | Lumbar | | | | | | MD Rene at [facility] | | | | | | | | [facility] | | | | | | | + +--------+--------+ +--------+--------+--------+ | Screw Set - | Screw | Left: | NUVASIVE - | | | [id number] | | [id number]: Qty: 12 | | Spine | NVSV | | | 0 / / | | on 08/10/2016 by Joshua Jorge | | Lumbar | | | | | | MD Rene at [facility] | | | | | | | | [facility] | | | | | | | + +--------+--------+ +--------+--------+--------+ | Screw Nick Christopher Xlf 5.5x50mm - | Screw | Left: | NUVASIVE - | | | [id number] | | [id number]: Qty: 1 | | Spine | NVSV | | | 0 / / | | on 08/10/2016 by Joshua Jorge | | Lumbar | | | | | | MD Rene at [facility] | | | | | | | | [facility] | | | | | | | + +--------+--------+ +--------+--------+--------+ | Screw Polyax Precept 6.5x50 - | Screw | Left: | NUVASIVE - | | | [id number] | | [id number]: Qty: 2 | | Spine | NVSV | | | 0A / / | | on 08/10/2016 by Joshua Jorge | | Lumbar | | | | | | MD Rene at [facility] | | | | | | | | [facility] | | | | | | | + +--------+--------+ +--------+--------+--------+ | Screw Precept Poly 5.5x50mm - | Screw | Left: | NUVASIVE - | | | [id number] | | [id number]: Qty: 2 | | Spine | NVSV | | | 0A / / | | on 08/10/2016 by Joshua Jorge | | Lumbar | | | | | | MD Rene at [facility] | | | | | | | | [facility] | | | | | | | + +--------+--------+ +--------+--------+--------+ | Screw Polyax Prcpt 7.5x50mm - | Screw | Left: | NUVASIVE - | | | [id number] | | [id number]: Qty: 2 | | Spine | NVSV | | | 0A / / | | on 08/10/2016 by Joshua Jorge | | Lumbar | | | | | | MD Rene at [facility] | | | | | | | | [facility] | | | | | | | + +--------+--------+ +--------+--------+--------+ Procedures + +--------+ + + + | Procedure Name | Priori | Date/Time | Associated Diagnosis | Comments | | | ty | | | | + +--------+ + + + | FL ASPIRATION | Routin | 05/02/2020 | Ischial bursitis | Results for this | | INJECTION MAJOR | e | 1:26 PM | of left side | procedure are in the | | JOINT RIGHT | | PDT | Ischial bursitis of | results section. | | | | | right side | | + +--------+ + + + | FL ASPIRATION | Routin | 05/02/2020 | Ischial bursitis | Results for this | | INJECTION MAJOR | e | 1:26 PM | of left side | procedure are in the | | JOINT LEFT | | PDT | Ischial bursitis of | results section. | | | | | right side | | + +--------+ + + + from Last 3 Months Results FL Asp and/or Inj Major Joint [...] Ischial Tuberosity | | | Bursitis Piterconrad Reich Fleming presents to the fluoroscopy suite for [...] + + | Performing | Address | City[facility] | Phone Number | | Organization | | | | + +---------+ + + | [facility] | | | | + +---------+ + + from Last 3 Months Insurance + +--------+ +--------+ +---------+--------+ | Payer | Benefi | Subscriber | Effect | Phone | Address | Type | | | t Plan | ID | jonathan | | | | | | / | | Dates | | | | | | Group | | | | | | + +--------+ +--------+ +---------+--------+ | MEDICARE | MEDICA | [id number] | 02/28/20 | [phone] | | Medica | | | RE | | 12-Pre | 5 | | re | | | PART A | | sent | | | | | | AND B | | | | | | + +--------+ +--------+ +---------+--------+ | BCBS | BCBS | [id number] | 08/31/19 | | | PPO | | | [place] | | 00-Pre | | | | | | L FEP | | sent | | | | + +--------+ +--------+ +---------+--------+ + +--------+ +--------+ + + | Guarantor Name | Accoun | Relation to | Date | Phone | Billing Address | | | t Type | Patient | of | | | | | | | | | | + +--------+ +--------+ + + | Piter Fleming | Person | Self [birth year] | | al/Fam | | 1945 | [phone] | [place] [address] | | | kyle | | | 8 (Home) | | + +--------+ +--------+ + + Advance Directives + + + + + | Type | Date Recorded | 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
--- OUTSIDE RECORDS SUMMARY | ~2020-06-17 | XMS | Encounter Summary ---
Demographics + + + | Address | [address] | | | [place] [address] | + + + | Home Phone | | + + + | Preferred Language | Unknown | + + + | Marital Status | | + + + | Jainism Affiliation | [id number] | + + + | Race | White | + + + | Ethnic Group | Not or | + + + Author + + + | Author | [facility] | | | and [place] | + + + | Organization | [facility] | | | and [...] [place] | | | | | [address] | | + + + + + | Mason Fleming | ECON | Unknown | | + + + + + Care Team Providers + +------+ + | Care Recreation Attendant Name | Role | Phone | [...] + + | Closed | Specialty | | Diagnoses | Burke, | Quentin Daniel | | | Services | | Ischial | MICHELLE Kenny | Genie, PhD [address] | | | Required | | bursitis of | [address] | [address] | | | | | left side | [address] | [place] | | | | | S/P lumbar | [address] | [address] | | | | | fusion | [place], | [place], [place] | | | | | Trochanteric | [place] [address] | [address] Phone: | | | | | bursitis, | Phone: | [phone] | | | |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 | [phone] | Fax: | | | | | Bilateral | Fax: | [phone] | | | | | hip joint | [phone] | | | | | | arthritis | | | | | | | Right hip | | | | | | | pain | | | | | | | Ischial | | | | | | | bursitis of | | | | | | | right side | | | | | | | Sacroiliitis | | | | | | | , not | | | | | | | elsewhere | | | | | | | classified | | | | | | | ([facility]) | | | | | | | 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 | | | | | | | syndrome | | | +--------+ + + + + + Reason for Visit + + + | Reason | Comments | + + + | Follow-up | Hip Pain | + + + Follow Up (Routine) [...] | | | | of right | [address] | [place] | | | | | buttock | [place], | [address] Phone: | | | | | Ischial | [place] | [phone] | | | | | bursitis of | [address] | Fax: | | | | | left side | Phone: | [phone] | | | | | Thoracic | [phone] | | | | | | spine pain | Fax: | | | | | | Right hip | [phone] | | | | | | pain [...] Description | +--------+---------+ + + + | 06/15/ | Office | [facility] | Efraín Turk, | 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 (Primary | | | | [address] | [address] [place] | Dx); Ischial | | | | [place] [address] | [place] [address] | bursitis of left | | | | [address] | [phone] | side; S/P lumbar | | | | [phone] | | fusion; Trochanteric | | | | | | bursitis, right | | | | | | hip; Bilateral hip | | | | | | joint arthritis; | | | | | | Right hip pain; | | | | | | Ischial bursitis of | | | | | | right side; | | | | | | Sacroiliitis, not | | | | | | elsewhere classified | | | | | | ([facility]); Neck pain | +--------+---------+ + + + Social [...] + + + | Blood Pressure | 116/66 | 06/15/2019 9:38 AM | | | | | PDT | | + + + + + | Pulse | 58 | 06/15/2019 9:38 AM | | | | | PDT [...] + + + + | Weight | 117.5 kg (259 lb) | 06/15/2019 9:38 AM | | | | | PDT | | + + + + + | Height | 181.6 cm (5' 11.5") | 06/15/2019 9:38 AM | | | | | PDT | | + + + + + | Body Mass Index | 35.62 | 06/15/2019 9:38 AM | | | | | PDT | | + + + + + documented in this encounter Patient Instructions Patient Instructions Efraín Turk PA-C - 06/15/2019 9:40 AM PDTSpinal cord stimulator (S CS) trial: If you would like to proceed with SCS trial, a referral will be placed to have a neuropsych evaluation with Dr. Daniel in the [facility]. This is an insurance requirement for spinal cord stimulators. Once cleared by neuropsychologist, we will call you to schedule you for the SCS trial stew medrano. This procedure is performed in the hospital under conscious sedation, you will be awake but somewhat unaware of what is occurring. The battery pack/cords will be attached to your lower back via bandages/tape for the 1 week trial. Avoid showering or submerging device in water. "Sponge bathing" is recommended for personal hygiene purposes in order to keep device/power source/leads safe. Do not pull or jiggle the leads during the trial. Permanent insertion precautions: After your surgery, it s important to use extreme care so that appropriate healing will s ecure the implanted components and close the surgical incisions. During the two weeks following surgery: Do not lift objects of more than five pounds. Do not engage in rigorous physical activity such as twisting, bending or climbing. Do not raise your arms above your head if new leads were implanted. Your healthcare team will provide specific guidelines for when you should contact them. In general, call your doctor if you: Have pain around the implant for longer than two weeks. Notice excessive redness around the wound areas, so your doctor can check for infection and administer proper treatment. In rare cases, adverse tissue reaction to implanted materials can occur during this period. Plan to make lifestyle changes due to decreases in pain. documented in this encounter Progress Notes Efraín Turk PA-C - 06/15/2019 9:40 AM PDTFormatting of this note might be different fro m the original. Efraín Turk PA-C [address] [place] [address] FAX: CHIEF COMPLAINT: Chief Complaint Patient presents with Follow-up Hip Pain HISTORY OF PRESENT ILLNESS: Piter Fleming is a 74 y.o. male being seen today in follow-up for complaints of low b ack pain. Patient has hx of L1-S1 fusion. The patient has been seen for this complaint in e past. Previously it was recommended that he have trochanteric bursitis and ischial bursa injection. He reports that the treatment was effective for only 3 weeks. At last visit SCS trial was also discussed in great detail. Patient reports that PCP referred him to hip surge on Dr Seaman. Patient saw surgeon regarding hip who recommended surgery. Patient has had s everal SI injections, trochanteric bursa injections, ischial bursa injections with short ter m relief. 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 Patient also had a bilateral T12-L1 TFESI with about 3 weeks of relief before symptoms returned. Overall the patient reports that the symptoms [...] dysfunction. He does not have saddle anesthesia. Patient has secondary complaint of bilateral hand numbness and tingling from time to time. Left thumb and right 4th and 5th digits. Treatments for these complaints have included PT, [...] Elastic in his sock's cause a rash Social History Socioeconomic History Marital status: Spouse name: Not on file Number of children: 2 Years of education: 14+ Highest education level: Not on file Social Needs Financial resource strain: Not on file Food insecurity - worry: Not on file Food insecurity - inability: Not on file Transportation needs - medical: Not on file Transportation needs - non-medical: Not on file Occupational History Comment: Retired Tobacco Use Smoking status: Former Smoker Packs/day: 1.00 Years: 16.00 Pack years: 16.00 Last attempt to quit: 08/30/1980 Years since quittin.8 Smokeless tobacco: Never Used Substance and Sexual Activity Alcohol use: Yes Alcohol/week: 0.0 oz Comment: Rarely/Socially Drug use: No Sexual activity: Yes Comment: Rarely Other Topics Concern Not on file Social [...] of consciousness, weakness and headaches. PHYSICAL EXAMINATION: Height 1.816 m (5' 11.5"), weight 117.5 kg (259 lb). Body mass index is 35.62 kg/m. GENERAL: The patient is well developed [...] has no apparent deficits with short or mcfp memory. The cranial nerves appear grossly intact. Sensory exam does show diminished sensation to light touch in the leg(s). Mildly positive tinels test bilaterally. + phalens bilaterally. Negative spurling. MUSCULOSKELETAL : Straight leg raise and slump-sit are negative. Memo's maneuver and impingement testing were POSITIVE for RIGHT groin pain. There was no tenderness to palpation over the greater trochanters or sacral sulci. The patient localized the majority of the pain to the buttock region. Lumbar facet loading was negative. Strength testing showed 5/5 strength throughout the lower extremities, EXCEPTION OF RIGH T HIP FLEXION AND RIGHT ANKLE DORSIFLEXION 4/5. The patient was able to heel and toe walk without difficulty. There was no redness, effusion, warmth or joint line tenderness in the knees or ankles. The patient localized the majority of the pain to the bilateral ischial bursa, L>R. Tender ness to palpation at posterior trochanteric bursa region. Neck: ROM slightly decreased. bilat UE strength 5/5. RADIOGRAPHIC REVIEW: MRI lumbar spine from 12/2018 shows the fusion changes L1-S1. There is a disc protrusion le ft of midline at T12-L1. He does appear to have some continued foraminal stenosis on the ri ght at L5-S1. Right hip xray 2019: moderate hip OA and bursitic changes. ASSESSMENT: Encounter Diagnoses Name Primary? Ischial bursitis of left side Yes S/P lumbar fusion Trochanteric bursitis, right hip Bilateral hip joint arthritis Right hip pain Ischial bursitis of right side Sacroiliitis, not elsewhere classified (HCC) PLAN: 1) [...] Imaging: As descibed above in radiology review. Neck xray ordered today to assess neck pain and hand symptoms. 4) The patient has had significant conservative care including medications (NSAIDS and narc otics), PT (multiple sessions over the years) and md do resident urgent care. Unfortunately Piter Richardson continues to have significant discomfort. It appears to me that the pain is prim arily coming from failed back surgery. Patient has hx of L1-S1 fusion. He has had multiple b ursa injections and SI injections in the past as well as a recent superior adjacent segment TFESI with no last relief. I did feel that Piter Fleming would be a good candidate for SCS trial and a referral to Dr Daniel was placed today. Patient was given info on SCS therapy. If patient is cleared by neuropsych then an order for an SCS trial will be placed. 5) hand symptoms: patient was told to wear bilateral wrist braces to help with his hand num bness. 6) If current treatment plan is insufficient for symptom relief we could try referral to pa in [place] as the next therapy option. 7) hip: patient will continue to follow up with ortho regarding right hip surgery. I spent 30 minutes in visit with Piter Fleming today with the majority of time spent counselling the patient on his diagnosis, options for his care, and coordinating his care. ELECTRONICALLY SIGNED BY: Efraín Turk PA-C, 06/15/2019 documented in this en counter Plan of Treatment + +---------+--------+ + + | Name | Type | Priori | Associated Diagnoses | Order Schedule | | | | ty | | | + +---------+--------+ + + | XR Cervical Spine 4 | Imaging | Routin | Neck pain | Expected: | | or 5 Vws | | e | | 06/15/2019, Expires: | | | | | | 06/15/2020 | + +---------+--------+ + + + + +--------+ + + | Name | Type | Priori | Associated Diagnoses | Order Schedule | | | | ty | | | + + +--------+ + + | NEUROPSYCH_ Dr. 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
--- OUTSIDE RECORDS SUMMARY | ~2020-06-17 | XMS | Encounter Summary ---
Demographics + + + | Address | [address] | | | [place] [address] | + + + | Home Phone | | + + + | Preferred Language | Unknown | + + + | Marital Status | | + + + | Denominational Affiliation | 1013 | + + + | Race | White | + + + | Ethnic Group | Not or | + + + Author + + + | Author | [facility] | | | and [place] | + + + | Organization | [facility] | | | [...] [place] | | | | | [address] | | + + + + + | Mason Fleming | ECON | Unknown | | + + + + + Care Team Providers + +------+ + | Care Casting House Laborer Name | Role | Phone | + [...] | | is of right | | [place], | | | | | hip Right | | [place] [address] | | | | | hip pain | | Phone: | | | | | Procedures | | [phone] | | | | | MS TOTAL HIP | | Fax: | | | | | | | [phone] | | | | | ARTHROPLASTY | [...] Description | +--------+---------+ + + + | 09/05/ | Surgery | [facility] | Hollis Seaman, | Right Total Hip | | 2020 | | [facility] | MD [address] | Arthroplasty | | | | [address] | [place], [place] | Anterior Approach | | | | [place], [place] | [address] | | | | | [address] | | | | | | [phone] | | | +--------+---------+ + + + [...] + + + | Blood Pressure | 129/71 | 09/05/2019 10:24 AM | | | | | PST | | + + + + + | Pulse | 73 | 09/05/2019 10:24 AM | | | | | PST | | + + + + + | Temperature | 36.6 C (97.9 F) | 09/05/2019 10:24 AM | | | | | PST | | + + + + + | Respiratory Rate | 18 | 09/05/2019 10:24 AM | | | | | PST | | + + + + + | Oxygen Saturation | 93% | 09/05/2019 10:43 AM | | | | | PST [...] for one we ek then change to [facility] Pertinent Diagnostic Info/Data: Medications Reconciled upon [...] by: Hollis Seaman MD, 09/07/2019 7:44 AM [facility] by Hollis Seaman MD at 04/2020 7:46 AM PSTdocumented in this encounter Discharge Instructions Instructions Jurgen, Hollis E, MD - 09/06/2019 Keep wound vac on for one week then can remove it and place an aquacel waterproof bandage If not comfortable doing that I can do it in the office - otherwise will see you at 2 weeks for suture removal Medication Instructions: Do not exceed 4,000 mg of acetaminophen (Tylenol) per day. Hydrocodone-acetaminophen (Oklee ) and Oxycodone-acetaminophen (Percocet) have 325 mg [...] red in back of calf PE or [place]: sudden chest pain or trouble breathing Stroke: [...] and help the stool stay soft and zkxw-nw-rjyu. Remember to drink plenty of fluids and eat fiber-containing foods. If you do not have a bowel movement within two days of returning home, add milk of magnesia 30 mL once each night and/or Miralax one capful (17 grams) dissolved in half a cup of water once daily for 3 days. These are available hfqp-cqx-zxdcynz at any drugstore. If you are still constipated 3 days after discharge, add a one-time bisacodyl (Dulcolax) romero ppository or an enema. If these do not work, contact the surgeon's office. AttachmentsThe following attachments cannot be sent through Care Everywhere.Rivaroxaban ora l tablets (Mauritian)documented in this encounter Medications at Time of [...] Christy Youngblood, PharmD - 09/07/2019 10:27 AM Tana Fleming is s/p R CHRISTIE and disch [...] above and all questions were answered. Pharmaci st will follow-up with patient in one to [...] more evident Confirmed by AISLINN MCCORMICK MD ([id number]) on 09/06/2019 6:21:02 AM Basic Metabolic Panel [...] might be di fferent from the original. [facility] HISTORY AND PHYSICAL EXAMINATION [...] L3-4 Decompression; Surgeon: Joshua Jorge MD; Location: [facility] MAIN OR ROTATOR CUFF REPAIR Right 06/2015 TONSILLECTOMY AND ADENOIDECTOMY 1951 TOTAL KNEE ARTHROPLASTY Bilateral -2009/-2010 WRIST SURGERY 2010 Hardware removal Allergies: Allergies [...] file Gets together: Not on file Attends congregational service: Not on file Active member of [...] lly stable to be discharged home to [place] with spouse. He is mobilizing with SBA [...] for today. Faxed the HH orders to [facility] this AM and spoke with Luz Maria [...] CM RN. This was all faxed to [facility]; fax transmission confirmed and placed in ghost chart. Dispo: Home with services thru [facility] . Has his own FWW at home. will be transporting back home to [place] today. Electronically signed by: Drea Harris RN 09/07/2019 9:28 AM lan of Care - Kota Flynn PTA - 09/07/2019 9:09 AM PSTFormatting of this [...] pacing, safety, sequencing, AD mgmt Level of [place]: stand by assist, verbal cues required Assistive [...] step Handrail Location: both sides Level of [place]: stand by assist, verbal cues required Assistive [...] min antalgic WB/wt shifting Bed-Chair, Level of [place]: stand by assist, verbal cues required Chair-Bed, Level of [place]: not tested Zif-Insep-Hkw, Assistive Device: 2 wheeled walker (FWW), gait belt Sit-Stand, Level of [place]: stand by assist, verbal cues required Stand-Sit, Level of [place]: supervised Dsn-Oqejc-Cpp, Assistive Device: 2 wheeled walker (FWW), gait [...] Device: bed rails Roll Left, Level of [place]: stand by assist, verbal cues required Roll Right, Level of [place]: stand by assist, verbal cues required Scoot/Bridge, Level of [place]: stand by assist, verbal cues required Supine to Sit, Level of [place]: not tested Sit to Supine, Level of [place]ergus: not tested Sidelying to Sit, Level of [place]: stand by assist, verbal cues required Sit to Sidelying, Level of [place]: stand by assist, verbal cues required Safety [...] On and Taking Off Pants with a School Athletic Director and Hip Precautions Putting On Socks with a Sock Aid and Hip Precautions Putting on Shoes with a Long-Handled Shoehorn and School Athletic Director Functional Endurance fair+ with mild activities, secondary d/t min antlagic gt pattern, min reduced upright acti vity tolerance, RLE weakness/soreness PT Goal Review Date Most Recent Value STG Review Date 09/12/19 at 09/05/2019 1700 Wknjqf-Swd-Ejvvpb Goal Most Recent Value STG Status progressing at 09/07/2019 0909 STG F[place] Level modified independent at 09/05/2019 1700 STG Assistive Device HOB elevated, bed rails at 09/05/2019 1700 Qbg-Vngpw-Giu Goal Most Recent Value STG Status progressing at 09/07/2019 0909 STG [place] Level modified independent at 09/05/2019 1700 STG Assistive Device 2 wheeled walker (FWW) at 09/05/2019 1700 Fdg-Uaost-Moy Goal Most Recent Value STG Status progressing at 09/07/2019 0909 STG [place] Level modified independent at 09/05/2019 1700 STG Assistive Device 2 wheeled walker (FWW) at 09/05/2019 1700 Gait Goal Most Recent Value STG Status progressing at 09/07/2019 0909 STG [place] Level modified independent at 09/05/2019 1700 STG Assistive Device 2 wheeled walker (FWW) at 09/05/2019 1700 STG Distance (feet) 150 at 09/05/2019 1700 Stair Goal Most Recent Value STG Status progressing at 09/07/2019 0909 STG [place] Level modified independent at 09/05/2019 1700 STG [...] a CPAP and this gets serviced through [facility] His PCP is Dr. Grijalva and [facility]. He states he owns a FWW. [...] PM lan of Care - Teja Flynn, DIRECTOR OF PROCUREMENT - 09/06/2019 2:58 PM PSTFormatting of this [...] instability with initial turn navigation Level of Fergus: contact guard assist, verbal cues required Assistive [...] for pacing, safety, sequencing Bed-Chair, Level of [place]ergus: not tested Chair-Bed, Level of [place]: stand by assist, verbal cues required Fcn-Lpvnr-Yhf, Assistive Device: 2 wheeled walker (FWW), gait belt Sit-Stand, Level of [place]: stand by assist, verbal cues required Stand-Sit, Level of [place]: stand by assist, verbal cues required Rfv-Hykvl-Egs, Assistive Device: 2 wheeled walker (FWW), gait [...] session Assistive Device: none Scoot/Bridge, Level of [place]: stand by assist, verbal cues required Supine to Sit, Level of [place]: not tested Sit to Supine, Level of [place]ergus: stand by assist, verbal cues required Safety [...] STG Review Date 09/12/19 at 09/05/2019 1700 Yoades-Gno-Fnwoxi Goal Most Recent Value STG Status progressing at 09/06/2019 1458 STG [place] Level modified independent at 09/05/2019 1700 STG Assistive Device HOB elevated, bed rails at 09/05/2019 1700 Akq-Aegxu-Etz Goal Most Recent Value STG Status progressing at 09/06/2019 1458 STG [place] Level modified independent at 09/05/2019 1700 STG Assistive Device 2 wheeled walker (FWW) at 09/05/2019 1700 Dtg-Xwpuf-Jvu Goal Most Recent Value STG Status progressing at 09/06/2019 1458 STG [place] Level modified independent at 09/05/2019 1700 STG Assistive Device 2 wheeled walker (FWW) at 09/05/2019 1700 Gait Goal Most Recent Value STG Status progressing at 09/06/2019 1458 STG [place] Level modified independent at 09/05/2019 1700 STG Assistive Device 2 wheeled walker (FWW) at 09/05/2019 1700 STG Distance (feet) 150 at 09/05/2019 1700 Stair Goal Most Recent Value STG Status new at 09/05/2019 1700 STG [place] Level modified independent at 09/05/2019 1700 STG Assistive Device 1 rail at 09/05/2019 1700 STG Number of Stairs 4 at 09/05/2019 1700 PT Time Calculation Individual Start Time: 1430 Individual Stop Time: 1458 Individual Total Time: 28 PT Total Treatment Time: 28 Timed TX Code Minutes: 28 Electronically signed by: Teja Flynn PTA, 09/06/2019 7:05 PM lan of Hodan - Ferannda Hensley MOBILE APPLICATION DEVELOPER - 09/06/2019 11: 07 AM PST Problem: Obstructive Sleep Apnea Risk or Actual (Comorbidity Management) Goal: Unobstructed Breathing During Sleep Outcome: Ongoing, progressing -History of sleep apnea since 1984. Home auto-titrating 8-20 cmh2O CPAP equipment at [facility] for use during this stay. Hap [...] day as well as night. lan of Hodan - Sandra Levin OT - 09/06/2019 10:11 AM PSTFormatting of [...] to the [facility] C saroj at [facility]. Potential available assistance at discharge: Living Environment/Accessibility: [...] using it. Hopes to get back to [place] [employer]. Walk in shower, small threshold, grab bars, [...] with further OT) Equipment Recommendations: shower chair, chef head, sock aide, long handled shoe horn(additi onal [...] HOB elevated Supine to Sit, Level of [place]: stand by assist Safety Issues: decreased use of legs for bridging/pushing Impairments: decreased flexibility Transfers 2 P Min sit>stand EOB, weight shifting performed EOB and with an instance of slight imbalan ce at R hip. 2P min gait belt, FWW throughout mobility, 1+1 CGA for transfer into chair. IV pole/wound vac mgmt provided throughout. Sit-Stand, Level of [place]: minimal assist (75% patient effort), 2 person assist requ ired, set up required, verbal cues required Stand-Sit, Level of [place]: contact guard assist, 1 person + 1 person to manage equip ment, set up required, verbal cues required Wfq-Nutlb-Wzg, Assistive Device: 2 wheeled walker (FWW) Safety [...] STG Status new at 09/06/2019 1002 STG F[place] Level set up required, verbal cues required, stand by assist at 0 1002 STG Adaptive Equipment chef head, sock-aid [FWW] at 09/06/2019 1002 Toileting Goal Most Recent Value STG Status new at 09/06/2019 1002 STG [place] Level supervised, verbal cues required, set up required at 09/06/2019 100 2 STG Assistive Device grab bar [over the toilet commode prn. FWW] at 09/06/2019 1002 Toilet Transfer Goal Most Recent Value STG Status new at 09/06/2019 1002 STG [place] Level supervised, verbal cues required, set up required at 09/06/2019 100 2 STG Assistive Device 2 wheeled walker (FWW), grab bars [over the toilet commode prn] at 1002 Tub/Shower Transfer Goal Most Recent Value Tub/Shower Type walk in shower stall at 09/06/2019 1002 STG Status new at 09/06/2019 1002 STG [place] Level contact guard assist, set up required, [...] Levin OT, 09/06/2019 6:44 PM lan of [place] - Brooke Butterfield RN - 09/06/2019 3:12 AM PSTPatient remained free of falls throughout the shift . A/O. VSS-except HR djlhwwjhbnn-oqahwhamj-wqslsir states baseline frequent bradycardic occu rences. Continuous [...] results. Will continue to monitor. lan of Hodan - Ron Pérez RN - 09/05/2019 6:37 PM PS THap arrived to room on 5L open mask, he is now on 2L NC. field reviewer reported that pt is at hig h [...] within reach. lan of Care - Michael Pfeiffer, PT - 09/05/2019 5:45 PM PSTFor matting [...] hold full wt due to buckling in [facility]. Sit-Stand, Level of Fergus: moderate assist (50% patient effort) Stand-Sit, Level of [place]ergus: moderate assist (50% patient effort) Fod-Gkemk-Hwl, Assistive Device: 2 wheeled walker (FWW) Maintain [...] assist, use of bed features, pt uses [employer] tech he learned during p revious back [...] STG Review Date 09/12/19 at 09/05/2019 1700 Cfiqzw-Rla-Qozdbv Goal Most Recent Value STG Status new at 09/05/2019 1700 STG [place] Level modified independent at 09/05/2019 1700 STG Assistive Device HOB elevated, bed rails at 09/05/2019 1700 Yfu-Gqmmz-Cuv Goal Most Recent Value STG Status new at 09/05/2019 1700 STG [place] Level modified independent at 09/05/2019 1700 STG Assistive Device 2 wheeled walker (FWW) at 09/05/2019 1700 Aah-Tmlri-Tws Goal Most Recent Value STG Status new at 09/05/2019 1700 STG [place] Level modified independent at 09/05/2019 1700 STG Assistive Device 2 wheeled walker (FWW) at 09/05/2019 1700 Gait Goal Most Recent Value STG Status new at 09/05/2019 1700 STG [place] Level modified independent at 09/05/2019 1700 STG Assistive Device 2 wheeled walker (FWW) at 09/05/2019 1700 STG Distance (feet) 150 at 09/05/2019 1700 Stair Goal Most Recent Value STG Status new at 09/05/2019 1700 STG [place] Level modified independent at 09/05/2019 1700 STG [...] Pt is in supine position on a [place] ta ble and both feet put in [...] n the tensor and medial septum. An [employer] self retraining retractor is placed in this [...] down into extension and adduction position. The [place] femoral hook is no t used. Exposure [...] PM PSTDate of Surgery: 09/05/19 OPERATING CO-SURGEONS: Hlolis Seaman MD and Brooks Louis MD ANESTHESIOLOGIST: [...] He was then carefully placed on the [place] table and casie ropriately padded and stabilized. [...] + | [facility] | [address] | [place] | [phone] | | [facility] | | [address] | | | - LABORATORY | | [...] | | | | | mmol/L | [facility] | | | | | | [...] 18 | 9 - 23 mg/dL | [facility] | | | | | | [facility] | | | | | | MEDICAL | | | | | | CENTER - | | | | | | LABORATORY | | + + + + + + | Creatinine | 0.92 | 0.70 - 1.30 | [facility] | | | | | mg/dL | [facility] | | | | | | MEDICAL | | | | | | CENTER - | | | | | | LABORATORY | | + + + + + + | eGFR, | >60Comment: GLOMERULAR | >=60 | [facility] | | | non- | FILTRATION | mL/min/1.73m2 | [facility] | | | [place] | RATE,ESTIMATED | | MEDICAL | | | | mL/min/1.92t6Tzsc than | | CENTER - | | [...] | [facility] | [address] | [place] | [phone] | | [facility] | | [address] | | | - LABORATORY | | [...] + | [facility] | [address] | [place] | [phone] | | [facility] | | [address] | | | - LABORATORY | | [...] 16 | 9 - 23 mg/dL | [facility] | | | | | | [facility] | | | | | | [...] mL/min/1.73m2 | [facility] | | | [place] | RATE,ESTIMATED | | MEDICAL | | | | mL/min/1.10i3Ynvz than | | CENTER - | | [...] ST. | [address] | [place] | [phone] | | [facility] | | [address] | | | - LABORATORY | | [...] hip arthroplasty | | | | COMPARISON: | | | | FINDINGS: Frontal view [...] | + +---------+ + + [place] Eulalia-Cipriano Statkota No Charge (09/05/2019 2:02 PM PST) + [...] | | | | AISLINN MCCORMICK MD ([id number]) | | | | | | on [...] | | | | + +--------+ +--------+------+------+ +-------+ +--------+---+---+ | Given | 09/06/19 | [...] | +---+---+ + +-------+ + +---+---+ | bacitracin-polymyxin (DOUBLE | Given | 09/05/19 | 1 | | | | ANTIBIOTIC, POLYSPORIN) [id number] | | 20 1:54 | Applicat | | | | UNIT/GM ointment OINT PRN, | | PM PST | ion | | | | Starting 09/05/19 at 1319, | | | | | | | Intra-op | | | | | | + +-------+ + +---+---+ +---+---+ | | | +---+---+ + +-------+ [...] | | | | Starting 09/05/19 at 1602, | | | | | [...] 8:25 | | | | | on 09/06/19 at 0900, | | AM PST | [...] | +---+---+ + +-------+ +--------+---+ + | ropivacaine (NAROPIN) 2 mg/mL | Given | 09/05/19 | 50 mLs | | Surgical | | (0.2%) 49.7 mL with EPINEPHrine 1 | | 20 1:37 | | | Site | | mg/mL 0.3 mg Optesia Mixture | | PM PST | | | | | Infiltration, AUTO TRANSMISSION TECHNICIAN, Starting | | | | | | | 09/05/19 at 1133, For 1 dose, | | | | | | | Pre-op | | | | | | + +-------+ +--------+---+ + +---+---+ | | | +---+---+ + +-------+ +--------+---+---+ | senna (SENOKOT) tablet 8.6 mg | Given | 09/06/19 | 8.6 mg | | | | 8.6 mg, Oral, 2 TIMES DAILY PRN, | | 20 8:13 | | | | | Constipation, Starting 09/05/19 | | AM PST | | | [...] | +---+---+ + +-------+ +-------+---+ + | tobramycin powder PRN, | Given | 09/05/19 | 1.2 g | | Hip-Righ | | Starting 09/05/19 at 1315, | | 20 1:48 | | | t | | Intra-op | | PM PST | | | | + +-------+ +-------+---+ + +---+---+ | | | +---+---+ + +-------+ +-----+---+ + | vancomycin injection PRN, | Given | 09/05/19 | 1 g | | Hip-Righ | | Starting 09/05/19 at 1315, | | 20 1:48 | | | t | | Intra-op | | PM PST | | | | + +-------+ +-----+---+ + +---+---+ | | | +---+---+ documented in this encounter
--- OUTSIDE RECORDS SUMMARY | ~2020-06-17 | XMS | Encounter Summary ---
Demographics + + + | Address | [address] | | | [place] [address] | + + + | Home Phone [...] | Author | [facility] | [...] [place] | | | | | [address] | | + + + + + | Mason Fleming | ECON | Unknown | | + + + + + Care Team Providers + +------+ + | Care Lumber Sorter Machine Name | Role | Phone | + [...] | Specialty | Physical | Diagnoses | Jurgen, | [facility] | | | Services | Therapy | Primary | Hollis Xie MD | HOSPITAL | | | Required | | osteoarthrit | [address] | [address] | | | | | is of right | [place] | [address] | | | | | hip History | [place] | [place] | | | | | of total | [address] | [address] | | | | | hip | Phone: | Phone: | | | | | arthroplasty | [phone] | [phone] | | | | | , right | Fax: | Fax: | | | | | | [phone] | [phone] | +--------+ + + + + + Encounter Details +--------+ + + + + | Date | Type | Department | Care Team | Description | +--------+ + + + + | 09/18/ | Orders Only | [facility] | Hollis Seaman, | Primary | | 2020 | | ORTHOPEDIC SURGERY | MD [address] | 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[place] | [place]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 (Primary | | | | [place], [place] | [address] | Dx); History of | | | | [address] | | total hip | | | | [phone] | | arthroplasty, right | +--------+ + + + + Social [...] | + + +--------+ + + | Physical Therapy - | Outpatient | Routin | Primary | Ordered: 09/18/2019 | | Ambulatory Referral | Referral | e | osteoarthritis of | | | | |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 History | | | | | | of total hip | | | | | | arthroplasty, right | | + + +--------+ + + documented as of this encounter Visit Diagnoses + + | Diagnosis | + + | Primary osteoarthritis of right hip - Primary Primary localized osteoarthrosis, | | pelvic region and thigh | + + | History of total hip arthroplasty, right | + + documented in this encounter"
--- OUTSIDE RECORDS SUMMARY | ~2020-06-17 | XMS | Encounter Summary ---
Demographics + + + | Address | [address] | | | [place] [address] | + + + | Home Phone | | + + + | Preferred Language | Unknown | + + + | Marital Status | | + + + | Methodist Affiliation | 1013 | + + + | Race | White | + + + | Ethnic Group | Not or | + + + Author + + + | Author | [facility] | | | and [place] [...] [place] | | | | | [address] | | + + + + + | Mason Fleming | ECON | Unknown | | + + + + + Care Team Providers + +------+ + | Care Ball Shagger Name | Role | Phone | + +------+ + | Michael Grijalva | PCP | | | MD | | | + +------+ + Encounter Details +--------+ + + + + | Date | Type | Department | Care Team | Description | +--------+ + + + + | 08/06/ | Preadmit | [facility] | Joshua Jorge MD | Lumbar | | 2016 | Visit | [facility] | [address] | radiculopathy; | | | | CLINIC [address] | [place] [address] | Spinal stenosis, | | | | [place] | [phone] | lumbar region, with | | | | [address] | | neurogenic | | | | [phone] | | claudication; | | | | | | Degenerative disc | | | | | | disease lumbar | | | | | | spine; SLEEP APNEA, | | | | | | OBSTRUCTIVE, SEVERE; | | | | | | DDD (degenerative | | | | | | disc disease), | | | | | | lumbar; Infantile | | | | | | idiopathic scoliosis | | | | | | of lumbar region; | | | | | | 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 | + +--------+ + + + | CBC WITH | Routin | 08/06/2016 | Lumbar | Results for this | | DIFFERENTIAL | e | 12:54 PM | radiculopathy | procedure are in the | | | | PST | Spinal stenosis, | results section. 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 | | | | | lumbar region, with | | | | | | neurogenic | | | | | | claudication | | | | | | Degenerative disc | | | | | | disease lumbar spine | | | | | | SLEEP APNEA, | | | | | | OBSTRUCTIVE, SEVERE | | | | | | DDD (degenerative | | | | | | disc disease), | | | | | | lumbar Infantile | | | | | | idiopathic scoliosis | | | | | | of lumbar region | | | | | | Other secondary | | | | | | scoliosis, lumbar | | | | | | region Flat back | | | | | | syndrome, acquired | | | | | | Facet arthropathy, | | | | | | lumbar | | + +--------+ + + + documented in this encounter Results ECG 12 lead (08/06/2016 1:00 PM PST) + + + + + + | Component | Value | Ref Range | Performed | Pathologist | | | | | At | Signature | + + + + + + | VENTRICULAR | 50 | BPM | [facility] | | | RATE EKG | | | | | + + + + + + | ATRIAL RATE | 50 | BPM | [facility] | | + + + + + + | P-R | 242 | ms | [facility] | | | INTERVAL | | | | | + + + + + + | QRS | 152 | ms | [facility] | | | DURATION | | | | | + + + + + + | Q-T | 470 | ms | [facility] | | | INTERVAL | | | | | + + + + + + | Q-T | 428 | ms | [facility] | | | INTERVAL | | | | | | (CORRECTED) | | | | | + + + + + + | P WAVE AXIS | -13 | degrees | [facility] | | + + + + + + | QRS AXIS | -65 | degrees | [facility] | | + + + + + + | T AXIS | -2 | degrees | [facility] | | + + + + + + | INTERPRETAT | Sinus bradycardia with | | [facility] | | | ION TEXT | sinus arrhythmia with | | | | | | 1st degree AV blockRight | | | | | | bundle branch blockLeft | | | | | | anterior fascicular | | | | | | block Bifascicular | | | | | | block T wave | | | | | | abnormality, consider | | | | | | inferior | | | | | | ischemiaAbnormal ECGNo | | | | | | previous ECGs | | | | | | availableConfirmed by | | | | | | AISLINN MCCORMICK MD ([id number]) | | | | | | on 08/07/2016 7:08:18 AM | | | | + + [...] | | | + +---------+ + + CBC with Differential (08/06/2016 12:54 PM PST) + + + + + + | Component | Value | Ref Range | Performed | Pathologist | | | | | At | Signature | + + + + + + | White Blood | 9.0 | 4.0 - 11.0 K/uL | [facility] | | | Cells | | | [facility] | | | | | | [facility] | | | | | | [facility] - | | | | | | LABORATORY | | + + + + + + | Red Blood | 3.83 (L) | 4.30 - 5.70 | [facility] | | | Cells | | M/uL | [facility] | | | | | | [facility] | | | | | | CENTER - | | | | | | LABORATORY | | + + + + + + | Hemoglobin | 13.2 (L) | 13.5 - 18.0 | [facility] | | | | | g/dL | [facility] | | | | | | [facility] | | | | | | C[facility] - | | | | | | LABORATORY | | + + + + + + | Hematocrit | 39.3 (L) | 40.0 - 51.0 % | [facility] | | | | | | [facility] | | | | | | [facility] | | | | | | [facility] - | | | | | | LABORATORY | | + + + + + + | MCV | 102.5 (H) | 83.0 - 101.0 fL | [facility] | | | | | | [facility] | | | | | [facility] | | | | | | C[facility] - | | | | | | LABORATORY | | + + + + + + | MCH | 34.5 | 28.0 - 35.0 pg | [facility] | | | | | | [facility] | | | | | | [facility] | | | | | | CENTER - | | | | | | LABORATORY | | + + + + + + | MCHC | 33.7 | 32.0 - 36.0 | [facility] | | | | | g/dL | [facility] | | | | | | [facility]ICAL | | | | | | CENTER - | | | | | | LABORATORY | | + + + + + + | RDW-CV | 13.5 | <15.0 % | [facility] | | | | | | [facility] | | | | | | [facility] | | | | | | CENTER - | | | | | | LABORATORY | | + + + + + + | Platelet | 240 | 140 - 440 K/uL | [facility] | | | Count | | | [facility] | | | | | | [facility] | | | | | | CENTER - | | | | | | LABORATORY | | + + + + + + | MPV | 8.4 | fL | [facility] | | | | | | [facility] | | | | | | [facility] | | | | | | CENTER - | | | | | | LABORATORY | | + + + + + + | % | 76.4 | 45.0 - 82.0 % | [facility] | | | Neutrophils | | | [facility] | | | | | | MEDICAL | | | | | | CENTER - | | | | | | LABORATORY | | + + + + + + | % | 12.3 (L) | 20.0 - 45.0 % | [facility] | | | Lymphocytes | | | [facility] | | | | | | MEDICAL | | | | | | CENTER - | | | | | | LABORATORY | | + + + + + + | % Monocytes | 9.7 | 4.0 - 12.0 % | [facility] | | | | | | [facility] | | | | | | [facility] | | | | | | CENTER - | | | | | | LABORATORY | | + + + + + + | % | 0.9 | 0.0 - 5.0 % | [facility] | | | Eosinophils | | | [facility] | | | | | | MEDICAL | | | | | | CENTER - | | | | | | LABORATORY | | + + + + + + | % Basophils | 0.7 | 0.0 - 1.0 % | [facility] | | | | | | [facility] | | | | | | [facility] | | | | | | CENTER - | | | | | | LABORATORY | | + + + + + + | Absolute | 6.80 | 1.80 - 8.50 | [facility] | | | Neutrophils | | K/uL | [facility] | | | | | | [facility]ICAL | | | | | | CENTER - | | | | | | LABORATORY | | + + + + + + | Absolute | 1.10 | 0.60 - 3.20 | [facility] | | | Lymphocytes | | K/uL | [facility] | | | | | | [facility] | | | | | | CENTER - | | | | | | LABORATORY | | + + + + + + | Absolute | 0.90 | 0.00 - 1.00 | [facility] | | | Monocytes | | K/uL | [facility] | | | | | | [facility] | | | | | | CENTER - | | | | | | LABORATORY | | + + + + + + | Absolute | 0.10 | 0.00 - 0.40 | [facility] | | | Eosinophils | | K/uL | [facility] | | | | | | [facility] | | | | | | CENTER - | | | | | | LABORATORY | | + + + + + + | Absolute | 0.10 | 0.00 - 0.10 | [facility] | | | Basophils | | K/uL | [facility] | | | | [...] + | [facility] | [address] | [place] | [phone] | | [facility] | | [address] | | | - LABORATORY | | | | + + + + + Basic Metabolic Panel (08/06/2016 12:54 PM PST) + + + + + + | Component | Value | Ref Range | Performed | Pathologist | | | | | At | Signature | + + + + + + | Na | 140 | 136 - 149 | [facility] | | | | | mmol/L | [facility] | | | | | | MEDICAL | | | | | | CENTER - | | | | | | LABORATORY | | + + + + + + | K | 3.9 | 3.5 - 5.1 | [facility] | | | | | mmol/L | [facility] | | | | | | MEDICAL | | | | | | CENTER - | | | | | | LABORATORY | | + + + + + + | Cl | 107 | 98 - 109 mmol/L | [facility] | | | | | | [facility] | | | | | | MEDICAL | | | | | | CENTER - | | | | | | LABORATORY | | + + + + + + | CO2 | 26 | 24 - 31 mmol/L | [facility] | | [...] + + + + | Glucose | 102 | 70 - 109 mg/dL | [facility] | | | | | [facility] | | | [facility] | | | | | | [facility] - | | | | | | LABORATORY | | + + + + + + | BUN | 16 | 7 - 18 mg/dL | [facility] | | | | | | [facility] | | | | | [facility] | | | | | | CENTER - | | | | | | LABORATORY | | + + + + + + | Creatinine | 0.85 | 0.60 - 1.30 | [facility] | | | | | mg/dL | [facility] | | | | | | MEDICAL | | | | | | CENTER - | | | | | | LABORATORY | | + + + + + + | eGFR, | >60Comment: GLOMERULAR | >=60 | [facility] | | | non- | FILTRATION | mL/min/1.73m2 | [facility] | | | Thai | RATE,ESTIMATED | | MEDICAL | | | | mL/min/1.65x1Vepp than | | CENTER - | | [...] + + + + | Calcium | 9.3 | 8.3 - 10.5 | [facility] | | | | | mg/dL | [facility] | | | | | | [facility] | | | | | | CENTER - | | | | | | LABORATORY | | + + + + + + | BUN/Creatin | 18.8 | | [facility] | | | ine Ratio | | | [facility] | | [...] | [facility] | [address] | [place] | [phone] | | [facility] | | [address] | | | - LABORATORY | | | | + + + + + Culture, MRSA (08/06/2016 12:54 PM PST) + + + + + + | Component | Value | Ref Range | Performed | Pathologist | | | | | At | Signature | + + + + + + | Culture | Negative for MRSA by | | [facility] | | | | chromogenic agar method | | [facility] | | | | | | MEDICAL | | | | | | CENTER - | | | | | | LABORATORY | | + + + + + + | Culture | 3+ Coagulase positive | | [facility] | | | | Staphylococcus | | [facility] | | | | | | MEDICAL | | | | | | CENTER - | | | | | | LABORATORY | | + + + + + + + + | Specimen | + + | Respiratory - Both | | anterior nares (body | | structure) | + + + + + + + | Performing | Address | City/State/Zipcode | Phone Number | | Organization | | | | + + + + + | [facility] | [address] | [place] | [phone] | | [facility] | | [address] | | | - LABORATORY | | | | + + + + + documented in this encounter Visit Diagnoses + + | Diagnosis | + + | Lumbar radiculopathy Thoracic or lumbosacral neuritis or radiculitis, unspecified | + + | Spinal stenosis, lumbar region, with neurogenic claudication | + + | Degenerative disc disease lumbar spine Degeneration of lumbar or lumbosacral | | intervertebral disc | + + | SLEEP APNEA, OBSTRUCTIVE, SEVERE Obstructive sleep apnea (adult) (pediatric) | + + | DDD (degenerative disc disease), lumbar Degeneration of lumbar or lumbosacral | | intervertebral disc | + + | 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
--- OUTSIDE RECORDS SUMMARY | ~2020-06-17 | XMS | Encounter Summary ---
Demographics + + + | Address | [address] | | | [place] [address] | + + + | Home Phone | | + + + | Preferred Language | Unknown | + + + | Marital Status | | + + + | Mandaen Affiliation | 1013 | + + + | Race | White | + + + | Ethnic Group | Not or | + + + Author + + + | Author | [facility] | | | and [place] | + + + | Organization | [facility] | [...] [place] | | | | | [address] | | + + + + + | Mason Fleming | ECON | Unknown | | + + + + + Care Team Providers + +------+ + | Care Wine Manager Name | Role | Phone | + +------+ + | Michael Grijalva | PCP | | | MD | | | + +------+ + Encounter Details +--------+ + + + + | Date | Type | Department | Care Team | Description | +--------+ + + + + | 03/09/ | Hospital | [facility] | Joshua Jorge MD | Lumbar | | 2013 | Encounter | MED CTR XRAY [address] | [address] | radiculopathy; | | | | [place] | [place] [address] | Spinal stenosis of | | | | [place] [address] | [phone] | lumbar - worst at | | | | [phone] | | the L2-L3 and L3-L4 | [...] 0 | 05/13/20 | | | (D3-50) 32011 UNITS | week. | | | 12 [...] LUMBAR SPINE 4 + | Routin | 03/09/2014 | Lumbar | Results for this | | VW | e | 11:08 AM | radiculopathy | procedure are in [...] Results XR Lumbar Spine 4 + Vw (03/09/2014 [...] + | MISCELLANEOUS LAB | | | [phone] | + +---------+ + + | MISCELANIOUS LAB | | | [phone] | + +---------+ + + documented in [...]
--- OUTSIDE RECORDS SUMMARY | ~2020-06-17 | XMS | Encounter Summary ---
Demographics + + + | Address | [address] | | | [place] [address] | + + + | Home Phone | | + + + | Preferred Language | Unknown | + + + | Marital Status | | + + + | Shinto Affiliation | 1013 | + + + | Race | White | + + + | Ethnic Group | Not or | + + + Author + + + | Author | [facility] | | | and [place] | + + + | Organization | [facility] | | | [...] [place] | | | | | [address] | | + + + + + | Mason Fischer | ECON | Unknown | | + + + + + Care Team Providers + +------+ + | Care Cross Cut Saw Operator Name | Role | Phone | + +------+ + | Michael Grijalva | PCP | | | MD | | | + +------+ + Encounter Details +--------+ + + + + | Date | Type | Department | Care Team | Description | +--------+ + + + + | 10/05/ | Hospital | [facility] | [facility] | | | 2013 | Encounter | MED CTR XRAY [address] | [address] | | | | | [place] | [place], [place] | | | | | [place] [address] | [address] | | | | | [phone] | | | +--------+ + + + [...] 0 | 05/13/20 | | | (D3-50) 20073 UNITS | week. | | | 12 | 5 | | CAPS | | | | | | + + + +---------+ + + | Cholecalciferol | Take one capsule by | | 0 | 05/13/20 | | | (D3-50) 91954 UNITS | mouth twice weekly | | [...] | FL EPIDURAL STEROID | Routin | 10/05/2013 | | Results for this | | INJECTION LUMBAR | e | 5:32 PM | | procedure are in the | | TRANSFORAMINAL | | PST | | results section. | + +--------+ + + + documented in this encounter Results FL SHIRLEY Lumbar Transforaminal (10/05/2013 5:32 PM PST) + + | Specimen | + + | | + + + + + | Narrative | Performed At | + + + | [facility] | [place] | | Department [address] [facility] | [facility] | | [ rep [address]] [ rep [facility] | | [facility]] Signed | - IMAGING | | | | | Patient Name: DEVIN FISCHER Physician: | | | KIMANI : 1945 Age: 68 Sex: M Unit #: [id number] | | | Exam Date: 10/05/13 Location: [facility] | | | Report #: [id number] Page: | | | %(RAD)RES..mtdd.print.filter("pg") of %(RAD) | | | RES..mtdd.print.filter("tpg") | | | | | | Accession Number: [id number] | | | 10/05/2013, EPIDURAL STEROID INJECTIONS CLINICAL HISTORY: | | | ICD-9 CODE IS 724.4, LUMBAR RADICULOPATHY. Mr. Dumas | | | Lonnie presents to the fluoroscopy suite for fluoroscopically guided | | | bilateral L3-L4 transforaminal epidural steroid injections as part | | | of conservative management for chronic pain with lumbar | | | radiculopathy and degenerative disk disease. After informed consent | | | was obtained the patient laid in the prone position on the | | | fluoroscopy table. The areas were identified under fluoroscopic | | | guidance. The areas were prepped and draped in a sterile fashion. | | | A 25 gauge 1-1/2 inch needle was [...] | | | space was obtained with the infusion of approximately 1 mL of Isovue | | | contrast which showed epidural flow as well as nerve sheath flow. | | | Then a combination of 2 mL of 1% lidocaine and 2 mL of 6 mg per | | | milliliter Celestone was infused divided between the 2-sides. The | | | patient tolerated the procedure well without complications. | | | Pre-procedure and postprocedure blood pressures were stable. The | | | patient was given verbal as well as written followup instructions. | | | Prior to the start of the procedure the following were | | | performed and verified including correct patient identity, correct | | | site/side marked and visible, agreement of the procedure to be done, | | | correct patient positioning and an accurate procedure consent form. | | | Any safety precautions based on clinical history and/or medication | | | use have been addressed. I personally performed the | | | procedure above. Dictated Date/Time: 10/05/2013 17:32 | | | Transcribed Date/Time: 10/05/2013 18:19 Car Inspector: | | | <<Signature on File>> | | | Peter Cunha | | | MD [id number] <Electronically signed by Peter Cunha | | Ofelia Haney MD> Peter Haney MD 10/05/13 1732 | | | Car Inspector: Business Exchangeluis alberto [id number] | | | | | + + + + + + + + | Performing | Address | City/State/Zipcode | Phone Number | | Organization | | | | + + + + + | [facility] | [address] | [place] | [phone] | | [facility] | | [address] | | | - IMAGING | | | | + + + + + documented in this encounter Visit Diagnoses Not on filedocumented in this encounter
--- OUTSIDE RECORDS SUMMARY | ~2020-06-17 | XMS | Encounter Summary ---
Demographics + + + | Address | [address] | | | [place] [address] | + + + | Home Phone [...] Author + + + | Author | [facility] | | | and [place] | + + + | Organization | [facility] | | | [...] [place] | | | | | [address] | | + + + + + | Mason Fleming | ECON | Unknown | | + + + + + Care Team Providers + +------+ + | Care Eyeglass Lens Generator Name | Role | Phone | + +------+ + PCP | Unavailable | + +------+ + Encounter Details +--------+ + + + + | Date | Type | Department | Care Team | Description | +--------+ + + + + | 03/15/ | Hospital | [facility] | Conversion | | | 2012 | Encounter | [facility] | Transaction, | | | | | [address] | Provider Unknown | | | | | [place], [place] | [phone] | | | | | [address] | | | | | | [phone] | Tom Holder, | | | | | | [address] | | | | | | [address] | | | | | | [place], [place] | | | | | | [address] | | | | | | [phone] | | | | | | | [...]
--- OUTSIDE RECORDS SUMMARY | ~2020-06-17 | XMS | Encounter Summary ---
Demographics + + + | Address | [address] | | | [place] [address] | + + + | Home Phone [...] | Author | [facility] | | | and [place] [...] [place] | | | | | [address] | | + + + + + | Mason Fleming | ECON | Unknown | | + + + + + Care Team Providers + +------+ + | Care Project Buyer Name | Role | Phone | + +------+ + PCP | Unavailable | + +------+ + Encounter Details +--------+ + + + + | Date | Type | Department | Care Team | Description | +--------+ + + + + | 06/25/ | Hospital | [facility] | Peter Haney | | | 2009 | Encounter | MED CTR XRAY [address] | [address] | | | | | [place] | [place], [place] | | | | | [place] [address] | [address] | | | | | [phone] | | | +--------+ + + + [...]
--- OUTSIDE RECORDS SUMMARY | ~2020-06-17 | XMS | Encounter Summary ---
Demographics + + + | Address | [address] | | | [place] [address] | + + + | Home Phone | | + + + | Preferred Language | Unknown | + + + | Marital Status | | + + + | Alevism Affiliation | 1013 | + + + | Race | White | + + + | Ethnic Group | Not or | + + + Author + + + | Author | [facility] | | | and [...] [place] | | | | | [address] | | + + + + + | Mason Fleming | ECON | Unknown | | + + + + + Care Team Providers + +------+ + | Care Derrick Man Name | Role | Phone | + [...] | | | [address] [place] | [place] [address] | | | | | [place] [address] | | | | | | [phone] | | | +--------+ + + + [...] + +--------+ + + + | XR HIP RIGHT 2-3 | Routin | 01/11/2019 | | Results for this | | VIEWS | e | 12:10 AM | | procedure are in the | | | | PDT | | results section. | + +--------+ + + + documented in this encounter Results XR Hip Right 2-3 Views (01/11/2019 12:10 AM PDT) + + | Specimen | [...]
--- OUTSIDE RECORDS SUMMARY | ~2020-06-17 | XMS | Encounter Summary ---
Demographics + + + | Address | [address] | | | [place] [address] | + + + | Home Phone [...] | Author | [facility] | [...] [place] | | | | | [address] | | + + + + + | Mason Fleming | ECON | Unknown | | + + + + + Care Team Providers + +------+ + | Care Skip Miner Blasting Name | Role | Phone | + +------+ + | Michael Grijalva | PCP | | | MD | | | + +------+ + Reason for Visit +--------+--------+ + | Reason | Onset | Comments | | | Date | | +--------+--------+ + | Pain | 12/24/ | | | | 2020 | | +--------+--------+ + Encounter Details +--------+ + + + + | Date | Type | Department | Care Team | Description | +--------+ + + + + | 12/24/ | Telephone | [facility] [place] | Ana Cristina Tiwari | Pain | | 2019 | | PHYSIATRY [address] | MICHELLE [address] | | | | | [address] [facility] [address] | [facility] | | | | | [place] | [address] [place] | | | | | [address] | [address] | | | | | [phone] | | | +--------+ + + + [...] encounter Miscellaneous Notes Telephone Encounter - Thanh Armstrong Electrical Panel Builder - 12/26/2019 9:46 AM PDTXavi called th e patient to relay Shannan's message. The patient actually said he would be fine to wait unti l his injection in January. But he was grateful for the call back. elephone Encounter - Ana Cristina Tiwari PA-C - 12/25/2019 11:16 PM PDTI see he already gets pain medications and has gabapen tin. I can not add any other medications or steroids. I recommended a SCS at last ov. He declined until he handled some other personal medical care. I would recommend that we atleas t get him in line for a psych eval for SCS since this takes time so when we are able to use the OR and do trials he will have this option to try for pain control. elephone Encounter - Thanh Armstrong Medical Assistant - 12/25/2019 3:11 PM PDTReferral placed for Bilateral ischial tuberosity to be done on 01/30. Shannan do you recommend anything for his pain in the mean time? Thank yo u elephon e Encounter - Zina Allen - 12/25/2019 2:50 PM PDTPiter Fleming calling to jessica lopez that he is in a lot pain and is advising that he would like to schedule another same day appointment for repeat injections, patient was scheduled at 01/31/2020 office visit with Nataly polanco at 11 am and hold placed on injection schedule at 12:30 pm Patient did states that if there was anything that we might be able to do for him in the me an time to help with his pain, please advise. documented in this encounter Plan of Treatment Not on filedocumented as of this encounter Visit Diagnoses Not on filedocumented in this encounter"
--- OUTSIDE RECORDS SUMMARY | ~2020-06-17 | XMS | Encounter Summary ---
Demographics + + + | Address | [address] | | | [place] [address] | + + + | Home Phone [...] Author | [facility] | | | and [place] | + + + | Organization | [facility] | | | and [place] | + [...] [place] | | | | | [address] | | + + + + + | Mason Fleming | ECON | Unknown | | + + + + + Care Team Providers + +------+ + | Care Degreasing Wheel Operator Name | Role | Phone | + +------+ + | Michael Grijalva | PCP | | | MD | | | + +------+ + Reason for Visit + + + | Reason | Comments | + + + | Back Pain | Low back pain that radiates into the left leg | + + + Encounter Details +--------+---------+ + + + | Date | Type | Department | Care Team | Description | +--------+---------+ + + + | 09/20/ | Office | [facility] | Lyn, | Bilateral lumbar | | 2014 | Visit | PHYSIATRY [address] | MICHELLE Masterson [address] | radiculopathy | | | | [address] | [address] | (Primary Dx); Spinal | | | | [place], [place] | [place] [address] | stenosis of lumbar | | | | [address] | [phone] | - worst at the L2-L3 | | | | [phone] | | and L3-L4 levels. | | [...] S1.; | | | | | | Scoliosis; | | | | | | PERIPHERAL | | | | | | NEUROPATHY; | | | | | | Post-traumatic | | | | | | osteoarthritis of | | | | | | both knees | +--------+---------+ + + + Social History [...] + + + | Blood Pressure | 130/72 | 09/20/2014 1:12 PM | | | | | PST | | + + + + + | Pulse | 68 | 09/20/2014 1:12 PM | | | | | PST [...] Weight | 115.7 kg (255 lb) | 09/20/2014 1:12 PM | | | | | PST | | + + + + + | Height | 185.4 cm (6' 1") | 09/20/2014 1:12 PM | | | | | PST | | + + + + + | Body Mass Index | 33.64 | 09/20/2014 1:12 PM | | | | | PST | | + + + + + documented in this encounter Patient Instructions Patient Instructions Aleja Nicholson PA-C - 09/20/2014 1:29 PM PST Follow-up at the hospital thirty minutes [...] of the procedure you must provide a rail car driver to take you home. For all procedur es it is recommended that someone else drive you home. documented in this encounter Progress Notes Aleja Nicholson PA-C - 09/20/2014 1:13 PM PSTFormatting of this note might be differe nt from the original. CHIEF COMPLAINT: Chief Complaint Patient presents with Back Pain Low back pain that radiates into the left leg HISTORY OF PRESENT ILLNESS: The patient is a 69 y.o. male being seen today in follow-up for complaints of low back pain . The patient has been seen for this complaint in the past, with initial visit started by Dr. Haney. Previously it was recommended that he receive bilateral L3/L4 TFESI for lum bar radiculopathy, spinal stenosis. His last injection was March of 2014. He reports that t he treatment was effective since then, however has been progressively worsening in the last 6 week. The patient's symptoms originally began many years ago. He rates the pain as 5 on scale o f 1-10. He describes [...] of the bilateral lower extermities. The praveen eligh does not report recent falls or trauma. [...] nightly. BETAMETHASONE Take by mouth as needed. Calcium Carbonate-Vitamin D (CALTRATE 600+D PO) TABS; Take 1 tablet by mouth twice emilie y Cholecalciferol (D3-50) 80484 UNITS CAPS 50,000 Units Once a week. citalopram (CELEXA) 40 mg tablet Take 40 mg by mouth Daily. Ephedrine-Guaifenesin (PRIMATENE ASTHMA) 12.5-200 MG TABS 2 to 3 tablets daily finasteride (PROSCAR) 5 mg tablet Take 5 mg by mouth Daily. fluocinonide (LIDEX) 0.05 % ointment two times a day gabapentin (NEURONTIN) 300 mg capsule Take 2 tablets by mouth at night for neuropathic pain, lumbar radiculopathy,and back pain. 60 capsule 2 Glucosamine HCl (GLUCOSAMINE MAXIMUM STRENGTH) 1500 MG TABS HYDROcodone-acetaminophen (NORCO) 10-325 mg per tablet as needed iron polysaccharides (NU-IRON) 150 MG capsule Take 150 mg by mouth Daily. LevOCARNitine L-Tartrate (L-CARNITINE) 500 MG CAPS Take 500 mg by mouth Daily. levothyroxine (LEVOTHROID) 200 mcg tablet Take 175 mcg by mouth Daily. liothyronine (CYTOMEL) 50 MCG tablet two daily multivitamin (THERAGRAN) per tablet Take 1 tablet by mouth daily Nutritional Supplements (DHEA PO) Take 100 mg by mouth 2 times daily. primidone (MYSOLINE) 50 mg tablet Take 4 [...] tablet Take 1,000 mcg by mouth Daily. ALLERGIES: Allergies Allergen Reactions Nsaids Other (See [...] No abnormal bleeding PHYSICAL EXAMINATION: Filed Vitals: 09/20/14 1312 BP: 130/72 Pulse: 68 PainSc: 5 Body mass index is 33.65 kg/(m^2). GENERAL: [...] L2/3 and L3/4, facet arthritis ASSESSMENT: 1. Bilateral lumbar radiculopathy 2. Spinal stenosis of lumbar - worst at the L2-L3 and L3-L4 levels. This would be classifi ed as severe. 3. Degenerative disc disease lumbar spine - he has degenerative changes at every level from L2 to S1. 4. Scoliosis 5. PERIPHERAL NEUROPATHY 6. Post-traumatic osteoarthritis of both knees PLAN: 1. The patient has tried conservative [...] with no changes made at this time. 3. The patient is to follow up PRN pain. ELECTRONICALLY SIGNED BY: Aleja Nicholson PA-C, 09/20/2014 SUPERVISING PHYSICIAN: Peter Haney MD, who was present in the clinic today during this visit. CC: Dr. Grijalva documented in t his encounter Plan of Treatment Not on filedocumented as of this encounter Results [place] SH[facility]LEY Lumbar Transforaminal (10/02/2014 1:47 PM PST) + + | Specimen | + + | | + + + + + | Narrative | Performed At | + + + | 10/02/2014 Bilateral Transforaminal Epidural Steroid Injections | [facility] | | Diagnosis: Lumbar radiculopathy ICD-9 Code 724.4 Piter Reich | [facility] | | Lonnie presents to the fluoroscopy suite for fluoroscopically-guided [facility] | | bilateral L3-L4 transforaminal epidural steroid [...] [address] | [place] | [phone] | | [facility] | | [address] | | | - IMAGING | | | | + + + + + documented in this encounter Visit Diagnoses + + | Diagnosis | + + | Bilateral lumbar radiculopathy - Primary | + + | Spinal stenosis of [...] (and kyphoscoliosis), idiopathic | + + | PERIPHERAL NEUROPATHY Unspecified hereditary and idiopathic peripheral neuropathy | + + | Post-traumatic osteoarthritis of both knees Secondary localized osteoarthrosis, lower | | leg | + + documented in this encounter
--- OUTSIDE RECORDS SUMMARY | ~2020-06-17 | XMS | Encounter Summary ---
Demographics + + + | Address | [address] | | | [place] [address] | + + + | Home Phone [...] + + | Author | [facility] | | | and [place] | + + + | Organization | [facility] | | | and [...] [place] | | | | | [address] | | + + + + + | Mason Fleming | ECON | Unknown | | + + + + + Care Team Providers + +------+ + | Care Lift Driver Name | Role | Phone | + +------+ + | Michael Grijalva | PCP | | | MD | | | + +------+ + Reason for Visit +---------+ + | Reason | Comments | +---------+ + | Post Op | Right total hip arthroplasty DOS 09/05/2019 | +---------+ + Encounter Details +--------+---------+ + + + | Date | Type | Department | Care Team | Description | +--------+---------+ + + + | 09/18/ | Office | [facility] | Hollis Seaman, | Postop check | 2019 | Visit | ORTHOPEDIC SURGERY | [address] | (Primary Dx) | | | | [address] [place] | [place] | | | | | [place] | [address] | | | | | [address] | | | | | | [phone] | | | +--------+---------+ + + + [...] + + + | Blood Pressure | - | - | | + + + + + | Pulse | - | [...] + + + + | Weight | 118.1 kg (260 lb 5.8 | 09/18/2019 10:13 AM | | | | oz) | PST | | + + + + + | Height | 185.4 cm (6' 1") | 09/18/2019 10:13 AM | | | | | PST | | + + + + + | Body Mass Index | 34.35 | 09/18/2019 10:13 AM | | | | | PST | | + + + + + documented in this encounter Progress Notes Hollis Seaman MD - 09/18/2019 10:30 AM PSTPatient is doing very well s/p right CHRISTIE His wound is healed without complication [place] out today and steri strips applied Calves nontender Transition activities discussed Will return in one month with xraysElectronically signed by Hollis Saeman MD at 0 11:32 AM PSTdocumented in this encounter Plan of Treatment Not on filedocumented as of this encounter Visit Diagnoses + + | Diagnosis | + + | Postop check - Primary Follow-up examination, following unspecified surgery | + + documented in this encounter
--- OUTSIDE RECORDS SUMMARY | ~2020-06-17 | XMS | Encounter Summary ---
Demographics + + + | Address | [address] | | | [place] [address] | + + + | Home Phone | | + + + | Preferred Language | Unknown | + + + | Marital Status | | + + + | Restorationist Affiliation | [id number] | + + + | Race | White | + + + | Ethnic Group | Not or | + + + Author + + + | Author | [facility] | | | and [place] | + + + | Organization | [facility] | | [...] [place] | | | | | [address] | | + + + + + | Mason Fleming | ECON | Unknown | | + + + + + Care Team Providers + +------+ + | Care Candy Department Manager Name | Role | Phone | + +------+ + | Michael Grijalva | PCP | | | MD | | | + +------+ + Encounter Details +--------+ + + + + | Date | Type | Department | Care Team | Description | +--------+ + + + + | 01/03/ | Orders Only | [facility] [place] | Efraín Turk, | S/P lumbar fusion | | 2019 | | PHYSIATRY [address] | PA-C [address] | (Primary Dx) | | | | [address] | [address] [place] | | | | | [place] | [place] [address] | | | | | [address] | [phone] | | | | | [phone] | | | +--------+ + + + [...] + | Benito, Rad Results In - 01/04/2019 2:31 PM PDT [...]
--- OUTSIDE RECORDS SUMMARY | ~2020-06-17 | XMS | Encounter Summary ---
Demographics + + + | Address | [address] | | | [place] [address] | + + + | Home Phone [...] | Author | [facility] | | | and [place] [...] [place] | | | | | [address] | | + + + + + | Mason Fleming | ECON | Unknown | | + + + + + Care Team Providers + +------+ + | Care Braider Setter Name | Role | Phone | + +------+ + | Michael Grijalva | PCP | | | MD | | | + +------+ + Reason for Visit + + + | Reason | Comments | + + + | Back Pain | Low back | + + + Evaluate & Treat (Routine) +--------+--------+ + + + + | Status | Reason | Specialty | Diagnoses / | Referred By | Referred To | | | | | Procedures | Contact | Contact | +--------+--------+ + + + + | Closed | | Neurosurgery | Diagnoses | Valentine, | Joshua Jorge | | | | | Lumbar | Michael López MD [address] | | | | | stenosis | MD Cliff [address] | | | | | Procedures | [address] | [place] | | | | | [place] OFFICE | [address] | [address] | | | | | CONSULTATION | [place] | Phone: | | | | | NEW/ESTAB | [place] | [phone] | | | | | PATIENT 62 | [address] | Fax: | | | | | MIN | Phone: | [phone] | | | | | | [phone] | | | | | | | Fax: | | | | | | | [phone] | | +--------+--------+ + + + + Encounter Details +--------+---------+ + + + | Date | Type | Department | Care Team | Description | +--------+---------+ + + + | 06/03/ | Office | [facility] | Joshua Jorge MD | Other secondary | | 2015 | Visit | NEUROSURGERY [address] | [address] | scoliosis, lumbar | | | | [address] | [place] [address] | region (Primary Dx); | | | | [place], [place] | [phone] | Flat back syndrome, | | | | [address] | | acquired; Facet | | | | [phone] | | arthropathy, lumbar; | | | | | | Lumbar | | | | | | radiculopathy; | | | | | | Spinal stenosis, | | | | | | lumbar region, with | | | | | | neurogenic | | | | | | claudication; DDD | | | | | | (degenerative disc | | | | | | disease), lumbar | +--------+---------+ + + + Social History [...] + + + | Blood Pressure | 98/55 | 06/03/2016 11:11 AM | | | | | PDT | | + + + + + | Pulse | 59 | 06/03/2016 11:11 AM | | | | | PDT | | + + + + + | Temperature | - | - | | + + + + + | Respiratory Rate | 16 | 06/03/2016 11:11 AM | | | | | PDT | | + + + + + | Oxygen Saturation | - | - | | + + + + + | Inhaled Oxygen | - | - | | | Concentration | | | | + + + + + | Weight | 115.4 kg (254 lb 6.4 | 06/03/2016 11:11 AM | | | | oz) | PDT | | + + + + + | Height | 185.4 cm (6' 1") | 06/03/2016 11:11 AM | | | | | PDT | | + + + + + | Body Mass Index | 33.56 | 06/03/2016 11:11 AM | | | | | PDT | | + + + + + documented in this encounter Progress Notes Joshua Jorge MD - 06/03/2016 11:18 AM PDTFormatting of this note might be different from t jenny original. Joshua Jorge MD [address] [place] [address], [address] [place] [address] FAX: NEUROSURGERY HISTORY AND PHYSICAL EXAMINATION CHIEF COMPLAINT: Chief Complaint Patient presents with Back Pain Low back HISTORY OF PRESENT ILLNESS: The patient is a 71 y.o. male with the complaint of back pain for decades. He continues to have flare-ups of severe pain and his more constant pain has i ncreased. The symptoms have been gradually improving since the flare-up. He rates the pain as severe. The symptoms are daily. He describes the pain as a dull, numbing, tight band a nd tingling. He has pain in both of his legs in his posterior legs. He has chronic bilater al foot numbness. He can only stand short amounts of time or walk bent forward. His distan ce has declined further. His symptoms improve with rest and bending. His symptoms worsen with standing, sitting, kneeling, bending and twisting. He has tried therapy and injections. His narcotic use has increased further with little be nefit. PAST MEDICAL HISTORY: Past Medical History Diagnosis [...] Jun 2008 Gallbladder surgery Total knee arthroplasty -2010 Gastric bypass surgery -2008 morbid obesity Rotator [...] HYDROcodone-acetaminophen (NORCO) 10-325 mg per tablet Take 1 tablet by mouth every 6 h ours as needed for Pain. iron polysaccharides (NU-IRON) 150 MG capsule Take 150 mg by mouth Daily. LevOCARNitine L-Tartrate (L-CARNITINE) 500 MG CAPS Take 500 mg by mouth Daily. levothyroxine (LEVOTHROID) 200 mcg tablet Take 175 mcg by mouth Daily. lisinopril (PRINIVIL, ZESTRIL) 10 mg tablet Take 10 mg by mouth Daily. multivitamin (THERAGRAN) per tablet Take 1 tablet by mouth daily oxyCODONE (ROXICODONE) 30 MG immediate release tablet Take 30 mg by mouth every 4 hours as [...] to take due to Gastric Bypass Surgery SOCIAL HISTORY: The patient reports that he [...] no rheumatoid arthritis. PHYSICAL EXAMINATION: Blood pressure 98/55, pulse 59, resp. rate 16, height 1.854 m (6' 1"), weight 115.395 kg (2 54 lb 6.4 oz). Body mass index is 33.57 kg/(m^2). GENERAL: Piter Fleming is in no acute distress with unlabored respirations. The virgen ent does not appear uncomfortable throughout the [...] has no apparent deficits with short or detention memory. CRANIAL NERVES: II: Acuity is diminished. [...] Intrinsics 5 5 Ulnar Intrinsics 5 5 Bisque Kiln Placer Strength 5 5 Hip Flexion 5 5 [...] ASSESSMENT: NEUROSURGICAL DIAGNOSES: Encounter Diagnoses Name Primary? Other secondary scoliosis, lumbar region Yes Flat back syndrome, acquired Facet arthropathy, lumbar (HCC) Lumbar radiculopathy Spinal stenosis, lumbar region, with neurogenic claudication DDD (degenerative disc disease), lumbar GENERAL DIAGNOSES: Past Medical History Diagnosis Date [...] stenosis, lumbar Postgastrectomy syndrome Dumping syndrome PLAN: It was a pleasure seeing and evaluating [...] rate of fusion. He would like to seek authorization and clearance for this. ELECTRONICALLY SIGNED BY: Joshua Jorge MD, 06/03/2016 12:00 documented in this encou nter Plan of Treatment Not on filedocumented as of this encounter Visit Diagnoses + + | Diagnosis | + + | Other secondary scoliosis, lumbar region - Primary | + + | Flat back syndrome, acquired Other lordosis (acquired) | + + | Facet arthropathy, lumbar Lumbosacral spondylosis without myelopathy | + + | Lumbar radiculopathy Thoracic or lumbosacral neuritis or radiculitis, unspecified | + + | Spinal stenosis, lumbar region, with neurogenic claudication | + + | DDD (degenerative disc disease), lumbar Degeneration of lumbar or lumbosacral | | intervertebral disc | + + documented in this encounter
--- OUTSIDE RECORDS SUMMARY | ~2020-06-17 | XMS | Encounter Summary ---
Demographics + + + | Address | [address] | | | [place] [address] | + + + | Home Phone [...] | [facility] | | | and [place] [...] [address] | | | | | [place] | | | | | [address] | | + + + + + | Mason Fleming | ECON | Unknown | | + + + + + Care Team Providers + +------+ + | Care Audio Narrator Name | Role | Phone | + +------+ + | Michael Grijalva | PCP | | | MD | | | + +------+ + Reason for Visit Evaluate & Treat (Routine) +--------+--------+ + + + + | Status | Reason | Specialty | Diagnoses / | Referred By | Referred To | | | | | Procedures | Contact | Contact | +--------+--------+ + + + + | Closed | | Orthopedic | Diagnoses | Valentine, | Jurgen, | | | | Surgery | Unilateral | Michael | Hollis Xie MD | | | | | primary | MD Cliff | [address] | | | | | osteoarthrit | [address] | [place], | | | | | is, right | [place] | [place] [address] | | | | | hip | [place], | Phone: | | | | | | [place] | [phone] | | | | | | [address] | Fax: | | | | | | Phone: | [phone] | | | | | | [phone] | | | | | | | Fax: | | | | | | | [phone] | | +--------+--------+ + + + + Encounter Details +--------+---------+ + + + | Date | Type | Department | Care Team | Description | +--------+---------+ + + + | 06/08/ | Office | [facility] | Hollis Seaman, | Primary | | 2019 | Visit | ORTHOPEDIC SURGERY | MD [address] | 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[place] | [place]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 (Primary | | | | [place] | [address] | Dx) | | | | [address] | | | | | | [phone] | | | +--------+---------+ + + + [...] documented as of this encounter Progress Notes Hollis Seaman MD - 06/08/2019 10:00 AM PDTFormatting of this note might be different fro m the original. History of present illness: Piter is a 74 y.o. male who presents with a chief complaint of right hip pain He has had long-standing problems with his [...] a foot drop as a surgical complication. He is here to discuss his options for right groin pain Past Medical History: Diagnosis Date Asthma, intrinsic [...] L3-4 Decompression; Surgeon: Joshua Jorge MD; Location: [facility] ROTATOR CUFF REPAIR Right 06/2015 TONSILLECTOMY AND ADENOIDECTOMY 1951 TOTAL KNEE ARTHROPLASTY Bilateral /-2010 WRIST SURGERY 2010 Hardware removal Allergies Allergen Reactions Nsaids Other (See Comments) Unable to take due to Gastric Bypass Surgery Latex Rash Elastic in his sock's cause a rash Current Outpatient Medications on File Prior to Visit Medication Sig Dispense Refill cyclobenzaprine (FLEXERIL) 10 [...] by mouth Daily. No current facility-administered medications on file prior to visit. Family History Problem Relation Age of Onset Other (see comment) Father 80 kidney failure High blood pressure Father No known problems Paternal Grandfather No known problems Paternal Grandmother No known problems Maternal Grandfather No known problems Maternal Grandmother Arthritis Other Diabetes Other Gout Other Heart defect Other Social History Socioeconomic History Marital status: Spouse [...] Last attempt to quit: 08/30/1980 Years since quittin.7 Smokeless tobacco: Never Used Substance and Sexual Activity Alcohol use: Yes Alcohol/week: 0.0 oz Comment: Rarely/Socially Drug use: No Sexual activity: Yes Comment: Rarely Other Topics Concern Not on file Social History Narrative Not on file Review of Systems Eyes: [] Double vision [] Glasses/contacts [] Failing vision Ear/Nose/Throat: [] Frequent Colds [] Sinus Disease [] Nose obstruction [] Sneezing Spells [] Change in taste [] Artificial teeth [] Ears ringing [] Ear pain [] Hearing loss [] Teeth problems [] Hoarseness [] Neck swelling [] Sore throat [] Congestion [] Nosebleeds [] Nasal allergies Respiratory: [] Asthma/Wheezing [] Pneumonia [] Night sweats [x] Shortness of breath [] Chronic cough [] Coughing up blood [] Exposure to tuberculosis Cardiovascular: [] Heart Problems [] Hypertension [] Heart murmur [] Palpitations [] Rheumatic fever [] Phlebitis [] Chest pain [x] Ankle swelling [] Leg cramps [] Raci ng heart [] Skipping beats [] Blood clots Gastrointestinal: [] Abdominal pain [] Heartburn [] Blood from rectum [] Colitis [] Gallbladder problems [] Troubl e swallowing [] Bloated stomach [] Change in stools [] Vomiting blood [] Nausea [] Hemorrhoids [] Jaundice [ ] Hepatitis [] Diarrhea [] Constipation [] Diverticulitis Urinary Tract: [] Painful urination [] Kidney Stones [] Any urine leakage [x] Weak urine stream [] Night urination [] Urine infections [] Bedwetting [] Blood in urine Skin: [] Skin rashes [] Itching/Burning [] Skin bruises easil y [] Artificial tanning [] Skin cancer [] Hair loss [] Changes in moles Musculoskeletal: [] Physical handicaps [x] Back or shoulder pain []Rheumatoid disease [] Osteoarthritis [x] Joint pain [x] Joint swelling []Gout [] Leg cramps at night Neurological: [] Headaches [] Seizures [] Stroke/TIA [] Faintness [x] Tremors [x] Numbness [] Dizziness [] Changes in handwriting [] Memory loss [x] Shooting pains Psychiatric: [x] Depression [] Suicidal thoughts [] Sleep pattern changes [] Appetite changes [] Recent counseling [x] Nervousness/anxiety [] Physical violence [] Marital problems Endocrine: [x] Thyroid [] Diabetes Systemic: []Weight loss/gain (over 10 lbs) []Fever/chills [x]Fatigue [] Sleeping Difficulties [] Speech change [] Voice change There were no vitals filed for this visit. Estimated body mass index is 35.62 kg/m as uyen culated from the following: Height as of 02/22/19: 1.816 m (5' 11.5"). Weight as of 02/22/19: 117.5 kg (259 lb). Physical exam his right hip has 0 degrees of internal [...] show severe and advanced osteoarthritis right hip Assessment: Severe and advanced osteoarthritis right hip The natural history and treatment options discussed at length on today's visit He would like to pursue physical therapy for strengthening and then he will return again in 2 months documented in this en counter Plan of Treatment Not on filedocumented as of this encounter Visit Diagnoses + + | Diagnosis | + + | Primary osteoarthritis of right hip - Primary Primary localized osteoarthrosis, | | pelvic region and thigh | + + documented in this encounter
--- OUTSIDE RECORDS SUMMARY | ~2020-06-17 | XMS | Encounter Summary ---
Demographics + + + | Address | [address] | | | [place] [address] | + + + | Home Phone [...] | Author | [facility] | | | and [place] | + + + | Organization | [facility] | | | and [...] [place] | | | | | [phone] | | + + + + + | Mason Fleming | ECON | Unknown | | + + + + + Care Team Providers + +------+ + | Care Digital Production Manager Name | Role | Phone | + +------+ + | Michael Grijalva | PCP | | | MD | | | + +------+ + Reason for Visit + + + | Reason | Comments | + + + | Back Pain | with pain and numbness in bilateral legs | + + + Encounter Details +--------+---------+ + + + | Date | Type | Department | Care Team | Description | +--------+---------+ + + + | 01/21/ | Office | [facility] | Lyn, | Spinal stenosis of | | 2016 | Visit | PHYSIATRY [address] | [address] | lumbar - worst at | | | | [address] | [address] | the L2-L3 and L3-L4 | | | | [place] | [place] [address] | levels. This would | | | | [address] | [phone] | be classified as | | | | [phone] | | severe. (Primary | | | [...] | | | L2 to S1. | +--------+---------+ + + + Social History [...] + + + | Blood Pressure | 98/51 | 01/22/2016 1:27 PM | | | | | PDT | | + + + + + | Pulse | 67 | 01/22/2016 1:27 PM | | | | | PDT [...] Weight | 115.7 kg (255 lb) | 01/22/2016 1:27 PM | | | | | PDT | | + + + + + | Height | 185.4 cm (6' 1") | 01/22/2016 1:27 PM | | | | | PDT | | + + + + + | Body Mass Index | 33.64 | 01/22/2016 1:27 PM | | | | | PDT | | + + + + + documented in this encounter Patient Instructions Patient Instructions Aleja Nicholson PA-C - 01/22/2016 1:49 PM PDT Follow-up at the hospital thirty minutes [...] of the procedure you must provide a patrol driver to take you home. For all procedur es it is recommended that someone else drive you home. documented in this encounter Progress Notes Aleja Nicholson PA-C - 01/22/2016 1:29 PM PDTFormatting of this note might be differe nt from the original. CHIEF COMPLAINT: Chief Complaint Patient presents with Back Pain with pain and numbness in bilateral legs HISTORY OF PRESENT ILLNESS: The patient is a 70 y.o. male being seen today in follow-up for complaints of low back pain . The patient has been seen for this complaint in the past, with initial visit started by Dr. Haney. Previously it was recommended that he receive bilateral L3/L4 TFESI for lum bar radiculopathy, spinal stenosis. His last injection was 09/25/2015. He reports that the tr eatment was 100% effective but only for three weeks, this was the least amount of time he gillis s received with an injection. He has been getting injections with Dr. Haney for the 5 years. He rates the pain as 6 on scale of 1-10. He describes the pain as aching or soreness to th e low back area. His symptoms worsen with prolonged standing and walking. His symptoms impr ove with sitting and with leaning forward. He [...] Haney. He has seen Dr. Jorge in the past and decided to post ryanne fisher, he would like to re-visit this idea and his PCP has made a referral to consult with Chadwick Jorge about surgery. Patient's medications, allergies, past medical, surgical, social [...] 2 tablets PO nightly for neuropathic pain 180 cap terell 4 iron polysaccharides (NU-IRON) 150 MG capsule [...] No abnormal bleeding PHYSICAL EXAMINATION: Filed Vitals: 01/22/16 1327 PainSc: 6 PainLoc: Back Body mass index [...] has no apparent deficits with short or half-way memory. He has appropriate fund of knowledge [...] patient today during the visit. MRI from 2016 shows DDD throughout, spinal stenosis L2/3 and L3/4, multi-level facet arthritis. ASSESSMENT: 1. Spinal stenosis of lumbar - worst at the L2-L3 and L3-L4 levels. This would be classifi ed as severe. 2. Lumbar radiculopathy 3. Degenerative disc disease lumbar spine - he has degenerative changes at every level from L2 to S1. PLAN: 1. The patient has tried conservative therapy in the past and has failed in symptom improv ement. He has been receiving bilateral epidurals by Dr. Haney targeting both spinal st enosis levels at L2/L3 and L3/L4. He has received many injections in the past and has alway s received 3 months of relief, however the last injection in August only gave him 3 weeks o f relief. His new lumbar MRI indicates worsening stenosis at L2/L3. I do think he will carol ann efit from an epidural injection targeting this stenosis and so a bilateral L3/L4 TFESI has b een ordered and will be done later today. 2. Medications have been reviewed at today's visit with no changes made at this time. 3. His primary care provider has already sent a referral to Dr. Jorge at the patients reques t. He is hoping he is a candidate for surgery and can get this in the next 6 months. ELECTRONICALLY SIGNED BY: Aleja Nicholson PA-C, 01/22/2016 CC: Dr. Grijalva documented in t his encounter Plan of Treatment Not on filedocumented as of this encounter Results [facility] Lumbar Transforaminal (01/22/2016 3:42 PM PDT) + + | Specimen | + + | | + + + + + | Narrative | Performed At | + + + | 01/22/2016 Bilateral Transforaminal Epidural Steroid Injections | [facility] | | Diagnosis: Lumbar radiculopathy ICD-10 Code M54.16 Success | [facility] | | Damir Fleming presents to the fluoroscopy suite for [facility] | | fluoroscopically-guided bilateral L3-L4 transforaminal [...] + | [facility] | [address] | [place], [place] | [phone] | | [facility] | | [phone] | | | - IMAGING | | [...]
--- OUTSIDE RECORDS SUMMARY | ~2020-06-17 | XMS | Encounter Summary ---
Demographics + + + | Address | [address] | | | [place] [address] | + + + | Home Phone [...] + + + | Author | [facility] | | | and [place] | + + + | Organization | [facility] | | | [...] [place] | | | | | [address] | | + + + + + | Mason Fleming | ECON | Unknown | | + + + + + Care Team Providers + +------+ + | Care Nurseryman Assistant Name | Role | Phone | [...] | | | | scoliosis, | | [place], [place] | | | | | site | | [address] | | | | | unspecified | | Phone: | | | | | Other | | [phone] | | | | | secondary | | Fax: | | | | | scoliosis, | | [phone] | | | | | lumbar | | | | | | | region | | | | | | | [M41.56] | | | | | | | Procedures | | | | | | | [place] | | | | | | | ARTHRODESIS | | | | | | | POSTERIOR/PO | | | | | | | STEROLATERAL | | | | | | | LUMBAR | | | +--------+--------+ + + + + Encounter Details +--------+---------+ + + + | Date | Type | Department | Care Team | Description | +--------+---------+ + + + | 08/10/ | Surgery | [facility] | Joshua Jorge MD | L2-3, L3-4, L4-5 | | 2016 | | MED CTR OR INTRA OP | [address] | Lateral Anterior | | | | [address] | [place] [address] | Interbody Fusion, | | | | [place], [place] | [phone] | L5-S1 Transforaminal | | | | [address] | | Lumbar Interbody | | | | [phone] | | Fusion, L3-4 | | | | | | Decompression | +--------+---------+ + + + Social History [...] + + + | Blood Pressure | 163/70 | 08/10/2016 10:28 AM | | | | | PST | | + + + + + | Pulse | 58 | 08/10/2016 10:28 AM | | | | | PST | | + + + + + | Temperature | 36.6 C (97.9 F) | 08/10/2016 10:28 AM | | | | | PST | | + + + + + | Respiratory Rate | 18 | 08/10/2016 10:28 AM | | | | | PST | | + + + + + | Oxygen Saturation | 97% | 08/10/2016 10:28 AM | | | [...] might be differ ent from the original. [facility] NEUROSURGERY DISCHARGE SUMMARY Patient Name: Piter Fleming [...] No medical issues were seen. He has Rounds support at home. Pain was controlled Condition [...] month post op appointment before your appointment. [id number] [employer]. [address] [place] [address]. All righ ts reserved. This information is [...] might be differ ent from the original. [facility] PROGRESS NOTE Pt. Name/Age/: Piter Fleming 71 y.o. 1945 Med. Record Number: [id number] Date of admission: 08/10/2016 Subjective: The patient [...] Electronically signed by: Jun Stout, 08/12/2016 8:40 [facility] est, Jun Navarro PA-C - 08/11/2016 7:35 AM PSTFormatting of this note might be different from the or iginal. [facility] PROGRESS NOTE Pt. Name/Age/: Piter Fleming 71 y.o. 1945 Med. Record Number: [id number] Date of admission: 08/10/2016 Subjective: The patient [...] Electronically signed by: Jun Stout, 08/11/2016 7:36 [facility] artha Jara RN - 08/10/2016 11:14 PM PSTAssumed care. Electronically signed by: Genie Robledo 08/10/2016 23:15 d ocumented in this encounter H&P Notes Joshua Jorge MD - 08/10/2016 12:13 PM [facility]IM HISTORY AND [...] signed by: Joshua Jorge MD 08/10/2016 12:13 [facility] Gael Sauceda P A-C - 08/06/2016 4:24 PM PST Gael Melgar PA-C [address] [place] [address], [address] [place], [place] [id number] FAX: NEUROSURGERY HISTORY AND PHYSICAL EXAMINATION CHIEF [...] Jun 2008 Gallbladder surgery Total knee arthroplasty -2009/-2010 Gastric bypass surgery -2008 morbid obesity Rotator [...] has no apparent deficits with short or tank terminal gauger memory. CRANIAL NERVES: II: Acuity is diminished. [...] Intrinsics 5 5 Ulnar Intrinsics 5 5 Insole Rounder Strength 5 5 Hip Flexion 5 5 [...] Lopez RN - 08/10/2016 3:30 PM PSTF amily called with patient status update.Electronically signed by [...] has no void within 6 hours after valeljo is removed, bladder scan pt and follow [...] Recommendations: hand held shower head, shower chair, staff technologist, sock aide, toilet safety frame (or a BSC over toilet) Patient Status/Goals: Reflects last filed data of Patient Status/Goals may be from multiple contributors. ADLs Patient and educated in donning techniques for shirt while supine with spinal precauti ons. Brace remained on, loosened x2 for underneath clothing straightening. Cues needed for l ogroll technique in bed. UB Dressing, Level of Landing: minimum assist (75% patient effort) UB Dressing Assess/Train, Position: other (see comments) STG Goals Transfer Training Goal, Activity Type: bed to chair /chair to bed, sit to stand/stand to si t, toilet Landing Level: modified independence Assistive Device: 2 wheeled walker (FWW) Time to Achieve: by discharge Goal Status: continued Toileting Goal, Landing Level: modified independence Time to Achieve: by discharge Goal Status: continued UB Dressing Goal, Landing Level: modified independence Time to Achieve: by discharge Goal Status: continued, progressing toward goal LB Dressing Goal, Landing Level: modified independence Adaptive Equipment: staff technologist, sock-aid Time to Achieve: by discharge Goal Status: continued Occupational Therapy will follow Piter Fleming 3 times/wk until discharge from [facility] or discharged from the hospital. Identified [...] the number for the loner closet in [facility] and wi ll be calling them. Unable to complete UB/LB dressing at this time D/T drains still in plac e. Occupational Therapy Discharge Recommendations are: Recommended discharge disposition: home with assist Post discharge occupational therapy recommendation: no further OT Equipment Recommendations: hand held shower head, shower chair, staff technologist, sock aide, toilet safety frame (or a BSC over toilet) Patient Status/Goals: Reflects last filed data of Patient Status/Goals may be from multiple contributors. ADLs LB, Level of Landing: verbal cues required, minimum assist (75% patient effort) Assistive Device: staff technologist, sock-aid LB Dressing Assess/Train, Position: supported standing, sitting LB Dressing Assess/Train, Impairments: decreased flexibility, ROM decreased, coordination i mpaired, pain STG Goals Transfer Training Goal, Activity Type: bed to chair /chair to bed, sit to stand/stand to si t, toilet Landing Level: modified independence Assistive Device: 2 wheeled walker (FWW) Time to Achieve: by discharge Goal Status: progressing toward goal, not met Toileting Goal, Landing Level: modified independence Time to Achieve: by discharge Goal Status: progressing toward goal, not met UB Dressing Goal, Landing Level: modified independence Time to Achieve: by discharge Goal Status: progressing toward goal, not met LB Dressing Goal, Landing Level: modified independence Adaptive Equipment: staff technologist, sock-aid Time to Achieve: by discharge Goal Status: progressing toward goal, not met Occupational Therapy will follow Piter Fleming 3 times/wk until discharge from [facility] or discharged from the hospital. Identified [...] further discharge needs. Electronically signed by: Aby Baliey 08/13/2016 11:02 lan of [facility] Jax Flynn PTA - 08/13/2016 9:52 AM [...] cleared for therapy and pr e-medicated by RN, Mallory. Pt states pain is at 6/10 mainly [...] functionaly moblility, Sup with FWW Level of Landing : supervision required, verbal cues required Assistive Device: 2 wheeled walker (FWW), brace Distance (feet): 100' Gait Pattern Analysis: 3-point gait Gait Deviations: samson decreased, limb motion velocity decreased, step length decreased Stairs Sup with ascendig, CGA-Pricila for decsending due to LE weakness Number of Stairs: 4x2 with seated rest break between Handrail Location: right side (ascending) Level of Landing: supervision required, verbal cues required, contact guard [...] and positioning with weakness Sit-Stand, Level of Landing: supervision required, verbal cues required Stand-Sit, Level of Landing: supervision required, verbal cues required Agt-[id number], Assistive Device: 2 wheeled walker (FWW), brace Maintain Weight Bearing Status: able to maintain weight bearing status Safety Issues: balance decreased during turns, step length decreased Impairments: strength decreased, decreased flexibility, pain Bed Mobility Pt most comfortable sidelying presently, LSO donned, needing cues and physical assist for s equence, 1P assist Assistive Device: none Roll Left, Level of Landing: verbal cues required, supervision required Scoot/Bridge, Level of Landing: supervision required Sidelying to Sit, Level of Landing: verbal cues required, supervision required Sit to Sidelying, Level of Landing: supervision required, verbal cues required Safety Issues: [...] Activity Type: supine to sit/sit to supine Landing Level: independent Assistive Device: none Time to Achieve: 3 days Goal Status: progressing toward goal Transfer Training Goal, Activity Type: sit to stand/stand to sit Landing Level: modified independence Assistive Device: 2 wheeled walker (FWW) Time to Achieve: 3 days Goal Status: progressing toward goal Gait Training Goal, Landing Level: modified independence Assistive Device: 2 wheeled walker (FWW) Distance: 150 Time to Achieve: 3 days Goal Status: progressing toward goal Stairs Goal, Landing Level: supervision required Assistive Device: 1 rail, [...] PTA, 08/13/2016 12:27 lan of Care - John Shell RN - 08/13/2016 3:13 AM PSTProblem: Patient [...] Monitor lab work as ordered. Notify M Chadwick with concerns. 6. Assess bowel tones q [...] Monitor lab work as ordered. Notify M Chadwick with concerns. 6. Assess bowel tones q [...] shift after working with therapies all day. N eurosurgeon hotel or motel receptionist, TANNER Melgar called, and ordered Flexeril q [...] baseline in both legs prior to surgery. lan of Care - Emani Ravi, LIMB DRIVER - 08/12/2016 3:29 PM PSTProblem: Patient Care [...] monitor p atient. lan of Care - alice Ogden, Destinee Prescott, BAKARI - 08/12/2016 3:15 PM PSTProblem: Patient Care [...] Monitor lab work as ordered. Notify M Chadwick with concerns. 6. Assess bowel tones q [...] Summary: Pt seenf for ADL training using staff technologist and sock aid. went over precautions, pt [...] from multiple contributors. ADLs LB, Level of Landing: verbal cues required, minimum assist (75% patient effort) Assistive Device: staff technologist, sock-aid LB Dressing Assess/Train, Position: supported standing, sitting LB Dressing Assess/Train, Impairments: decreased flexibility, ROM decreased, coordination i mpaired, pain STG Goals Transfer Training Goal, Activity Type: bed to chair /chair to bed, sit to stand/stand to si t, toilet Landing Level: modified independence Assistive Device: 2 wheeled walker (FWW) Time to Achieve: by discharge Goal Status: continued, progressing toward goal Toileting Goal, Landing Level: modified independence Time to Achieve: by discharge Goal Status: not addressed UB Dressing Goal, Landing Level: modified independence Time to Achieve: by discharge Goal Status: not addressed LB Dressing Goal, Landing Level: modified independence Adaptive Equipment: staff technologist, sock-aid Time to Achieve: by discharge Goal [...] be his transpor t back home to [place], [place], which could possibly be as early as tomorrow. He is usually independent with all his needs prior to this stay and still drives. In the past he has been to OP PT, in [place], who is his friend, and he will most like re turn there after cleared by his surgeon after his first post op visit. His PCP is Michael Grijalva MD, in [place], and he uses [facility] for his pharmacy needs [facility]. He does have a lift chair at home and also a shower chair with ADA toilet, but does not hav e a shower chair. Called [facility] and they confirmed they have one so let patient know this information. Gave [facility]'s address and phone number to patient and they can stop by and pick it up on the way home possibly tomorrow. Patient will need a 2WW walker at home so faxed the DME walker referral order to [facility], (patient's choice after options were given), along with the pertinent c vazquez notes, which included the face sheet, H&P, PT notes. Confirmed with [facility] they got the order. Requested they deliver the walker to patient's room either this afternoon or in AM for anticipated discharge tomorrow. Signed preference form with fax transmission and confirmation sheet placed in ghost chart.Arnaldo morales signed by: Drea Harris RN 08/12/2016 14:40 [...] in room and clear for therapy per Mallory VALLE. Pt states pain at 2/10 at rest. [...] precaution and balance. Pt still fatigues fairly rica malhotra and would benefit therapy to promote functional [...] A for safety with FWW. Level of Landing : contact guard assist, minimum assist (75% patient effort) Assistive Device: 2 wheeled walker (FWW), brace Distance (feet): 20'x3 Gait Pattern Analysis: 3-point gait Gait Deviations: samson decreased, step length decreased, yiu-we-muaxc clearance decreased Transfers Height of bed elevated to ease transition, cues for hand placement and posture Sit-Stand, Level of Landing: contact guard assist, minimum assist (75% patient effort) Stand-Sit, Level of Landing: contact guard assist Qgc-Buscg-Aas, Assistive Device: 2 wheeled walker (FWW), brace [...] Device: bed rails Roll Left, Level of Landing: verbal cues required Scoot/Bridge, Level of Landing: supervision required Sidelying to Sit, Level of Landing: minimum assist (75% patient effort) Sit to Sidelying, Level of Landing: minimum assist (75% patient effort) Safety Issues: [...] Activity Type: supine to sit/sit to supine Landing Level: independent Assistive Device: none Time to Achieve: 3 days Goal Status: progressing toward goal Transfer Training Goal, Activity Type: sit to stand/stand to sit Landing Level: modified independence Assistive Device: 2 wheeled walker (FWW) Time to Achieve: 3 days Goal Status: progressing toward goal Gait Training Goal, Landing Level: modified independence Assistive Device: 2 wheeled walker (FWW) Distance: 150 Time to Achieve: 3 days Goal Status: progressing toward goal Stairs Goal, Landing Level: supervision required Assistive Device: 1 rail, [...] assessment. lan of Care - Alvaro Hammond, LIMB DRIVER - 08/11/2016 9:37 PM PSTProblem: Patient Care [...] removed, bladder scan pt and follow MD vaqzuez rders to assist empting the bladder. 8. [...] removed, bladder scan pt and follow o karmen to assist empting the bladder. 8. PT [...] bed rails Supine to Sit, Level of Landing: minimum assist (75% patient effort), verbal cues requ ired Sit to Supine, Level of Landing: minimum assist (75% patient effort), verbal cues requ ired Safety Issues: decreased use of arms for pushing/pulling, decreased use of legs for bridgin g/pushing Impairments: coordination impaired, impaired balance, strength decreased, pain Transfers Pt at [facility] for sit>stand due to weakness, pain s/p surgery Sit-Stand, Level of Landing: contact guard assist, verbal cues required Stand-Sit, Level of Landing: contact guard assist, verbal cues required Xcl-Eckdu-Lzy, Assistive Device: 2 wheeled walker (FWW) Safety Issues: balance decreased during turns, sequencing ability decreased, step length de creased, loses balance backward Impairments: coordination impaired, strength decreased, motor control impaired, sensation d ecreased STG Goals Transfer Training Goal, Activity Type: bed to chair /chair to bed, sit to stand/stand to si t, toilet Landing Level: modified independence Assistive Device: 2 wheeled walker (FWW) Time to Achieve: by discharge Goal Status: new Toileting Goal, Landing Level: modified independence Time to Achieve: by discharge Goal Status: new UB Dressing Goal, Landing Level: modified independence Time to Achieve: by discharge Goal Status: new LB Dressing Goal, Landing Level: modified independence Adaptive Equipment: staff technologist, sock-aid Time to Achieve: by discharge Goal Status: new Occupational Therapy will follow Piter Fleming 3 times/wk [facility] or discharged from the [facility]. Identified Problems Needing Skilled Intervention: pain, weakness, decreased ADLs, increas ed risk of falls s/p surgery, aerobic capacity/endurance, gait, locomotion, and balance Planned Interventions:ADL retraining, strengthening, transfer training Electronically signed by: Oziel Choe OT, 08/11/2016 17:05 lan of Care - Emani Smith RRT - 08/11/2016 3:16 PM PSTProblem: Patient Care [...] Monitor lab work as ordered. Notify M Chadwick with concerns. 6. Assess bowel tones q [...] in all grade C postop precautions/education with demonstratigeorge ns. Pt participated in bed mobility training, [...] A for safety with FWW. Level of Landing : minimum assist (75% patient effort), verbal cues required Assistive Device: 2 wheeled walker (FWW) Distance (feet): 10' x 3 Stairs NT Transfers Height of bed elevated to ease transition, cues for hand placement and posture Sit-Stand, Level of Landing: verbal cues required, minimum assist (75% patient effort) Stand-Sit, Level of Landing: contact guard assist, verbal cues required Lbz-Lpgto-Spi, Assistive Device: 2 wheeled walker (FWW) Safety Issues: balance decreased during turns, sequencing ability decreased, step length de creased, loses balance backward Impairments: coordination impaired, strength decreased, motor control impaired, sensation d ecreased Bed Mobility Pt most comfortable sidelying presently, LSO donned, needing cues and physical assist for s equence, 1P assist Assistive Device: HOB elevated, bed rails Sidelying to Sit, Level of Landing: minimum assist (75% patient effort), verbal cues r equired Sit to Sidelying, Level of Landing: minimum assist (75% patient effort), verbal cues [...] Activity Type: supine to sit/sit to supine Landing Level: independent Assistive Device: none Time to Achieve: 3 days Goal Status: new Transfer Training Goal, Activity Type: sit to stand/stand to sit Landing Level: modified independence Assistive Device: 2 wheeled walker (FWW) Time to Achieve: 3 days Goal Status: new Gait Training Goal, Landing Level: modified independence Assistive Device: 2 wheeled walker (FWW) Distance: 150 Time to Achieve: 3 days Goal Status: new Stairs Goal, Landing Level: supervision required Assistive Device: 1 rail, [...] 08/11/2016 6:19 lan of Care - Rajwinder lindsayRosalinda RN - 08/11/2016 12:13 AM PSTProblem: Patient [...] Note Piter Fleming 71 y.o. male 1945 [id number] Proc. Date 08/10/2016 Preop Dx Other secondary [...] Anais Surgeon Joshua Jorge MD - Primary Or Scrub Tech TANNER Sanches-C EBL 434 Findings Scoliosis and [...] was inserted over the dilators. The light [facility] es were connected and the area was [...] PEEK spacer was prepared filling it with [place]/BMP and then t amping it into the interspace at L4-5. An awl was used to make an L4 harbor pilot hole and then a 5.5 x [...] PEEK spacer was prepared filling it with [place]/BMP and then tamping it into the interspace [...] PEEK spacer was prepared filling it with [place]/BMP and then tamping it into the interspace [...] then paid to the left side at L5-Q7vibqz a decompression was performed. A ME TRx [...] bone autograft obtained from the laminectomies and [place] with bone marrow aspirate were packed in [...] signed by: Joshua Jorge MD 08/10/2016 18:25 [facility] rief Op Note - Mohinder Jorge MD - 08/10/2016 6:25 PM PSTFormatting of this note might be different from the origin al. Brief Operative Note Piter Fleming 71 y.o. male 1945 [id number] Proc. Date 08/10/2016 Preop Dx Other secondary [...] Anais Surgeon Joshua Jorge MD - Primary Or Scrub Tech TANNER Sanches-C EBL 434 Findings Scoliosis and loss of lordosis. L5-S1 autofusion. Severe L5 foraminal stenosis. Severe L3-4 stenosis. C bracing. Complications none Specimens * No specimens in log * Drains Drain/Device Site 08/10/16 1604 #1 Left medial lumbar spine (Active) Drain/Device Site 08/10/16 1605 #2 Left lower lumbar spine (Active) Electronically signed by: Joshua Jorge MD 08/10/2016 18:25 [facility]WORKElectronically signed by Joshua Jorge MD at 016 [...] being in surgery . Plan: Eval Tues a.m. Electronically signed by: Kaylyn Rose, PT, 08/10/2016 [...] of my visit. His son came from [facility] to be with his parents. Spiritual Evaluation: Patient and family are Muslim and do look to their [place] for [...] care issues that arise, please contact . documente d in this encounter Plan of Treatment + [...] placement of hardware for posterior fusion from O4dflvfry S1 with spacer hardware at | | [...] + + | Performing | Address | City/State/[facility]ode | Phone Number | | Organization [...] | + + | Other secondary scoliosis, site unspecified | + + documented in this encounter Administered Medications + +--------+ +---------+------+ + | Medication Order | MAR | Action | Dose | Rate | Site | | | Action | Date | | | | + +--------+ +---------+------+ + | bacitracin injection PRN, | Given | 08/10/20 | 50,000 | | Surgical | | Starting 08/10/16 at 1325, | | 16 1:25 | Units | | Site | | Intra-op | | PM PST | | | | + +--------+ +---------+------+ + +---+---+ | | | +---+---+ + +-------+ +--------+---+ + | bupivacaine (liposomal) | Given | 08/10/20 | 20 mLs | | Surgical | | (EXPAREL) 1.3% injection PRN, | | 16 5:44 | | | Site | | Starting 08/10/16 at 1325, | | PM PST | | | | | Intra-op | | | | | | + +-------+ +--------+---+ + +---+---+ | | | +---+---+ + +-------+ +--------+---+ + | bupivacaine 0.5%-EPINEPHrine | Given | 08/10/20 | 30 mLs | | Surgical | | 1:200,000 injection PRN, | | 16 1:25 | | | Site | | Starting 08/10/16 at 1325, | | PM PST | | | | | Intra-op | | | | | | + +-------+ +--------+---+ + +---+---+ | | | +---+---+ documented in this encounter
--- OUTSIDE RECORDS SUMMARY | ~2020-06-17 | XMS | Encounter Summary ---
Demographics + + + | Address | [address] | | | [place] [address] | + + + | Home Phone | | + + + | Preferred Language | Unknown | + + + | Marital Status | | + + + | Yazidi Affiliation | [id number] | + + + | Race | White | + + + | Ethnic Group | Not or | + + + Author + + + | Author | [facility] | | | and [place] | + + + | Organization | [facility] | | [...] [place] | | | | | [address] | | + + + + + | Mason Fleming | ECON | Unknown | | + + + + + Care Team Providers + +------+ + | Care Loan Specialist Name | Role | Phone | + +------+ + PCP | Unavailable | + +------+ + Encounter Details +--------+ + + + + | Date | Type | Department | Care Team | Description | +--------+ + + + + | [facility]01[facility] | [facility] 1990 | [facility] | [facility] GENERIC OP | | | | | | CONV DEPT [address] | | | | | | [facility] [place], | | | | | | [place] [address] | | | | | | [phone] | | | +--------+ + + + [...]
--- OUTSIDE RECORDS SUMMARY | ~2020-06-17 | XMS | Encounter Summary ---
Demographics + + + | Address | [address] | | | [place] [address] | + + + | Home Phone [...] | Author | [facility] | | | and [place] [...] [place] | | | | | [address] | | + + + + + | Mason Fleming | ECON | Unknown | | + + + + + Care Team Providers + +------+ + | Care Leather Roller Name | Role | Phone | + +------+ + | Michael Grijalva | PCP | | | MD | | | + +------+ + Reason for Visit + + + | Reason | Comments | + + + | Weakness | in bilateral legs | + + + Evaluate & Treat (Routine) +--------+ + + + + + | Status | Reason | Specialty | Diagnoses / | Referred By | Referred To | | | | | Procedures | Contact | Contact | +--------+ + + + + + | Closed | Specialty | Physical | Diagnoses | Girish, | [place], | | | Services | Medicine and | S/P lumbar | Jun | Peter Cunha MD | | | Required | Rehabilitatio | fusion | MICHELLE Navarro | [address] | | | | n | Lumbar | [address] | [facility] | | | | | radiculopath | [address]VE | [place], [place] | | | | | y | [place], [place] | [address] Phone: | | | | | Hypertension | [phone] | [phone] | | | | | , | Phone: | Fax: | | | | | unspecified | [phone] | [phone] | | | | | type Flat | Fax: | | | | | | back | [phone] | | | | | | syndrome, | | | | | | | acquired | | | +--------+ + + + + + Encounter Details +--------+---------+ + + + | Date | Type | Department | Care Team | Description | +--------+---------+ + + + | 08/16/ | Office | [facility] | Ana Cristina Tiwari | Lumbar radiculopathy | | 2017 | Visit | PHYSIATRY [address] | MICHELLE Campbell [address] | (Primary Dx); | | | | [address] | [address] | Sacroiliitis, not | | | | [place] | [address] | elsewhere classified | | | | [address] | [address] | ([facility]); Lumbar | | | | [phone] | | postlaminectomy | | | | | | syndrome; Spinal | | | | | | stenosis of lumbar | | | | | | region without | | | | | | neurogenic | | | | | | claudication; | | | | [...] + + + | Blood Pressure | 138/73 | 08/16/2017 12:39 PM | | | | | PST | | + + + + + | Pulse | 51 | 08/16/2017 12:39 PM | | | | | PST [...] + + + + | Weight | 122 kg (269 lb) | 08/16/2017 12:39 PM | | | | | PST | | + + + + + | Height | 181.6 cm (5' 11.5") | 08/16/2017 12:39 PM | | | | | PST | | + + + + + | Body Mass Index | 36.99 | 08/16/2017 12:39 PM | | | | | PST | | + + + + + documented in this encounter Patient Instructions Patient Instructions Ana Cristina Tiwari PA-C - 08/16/2017 12:40 PM PST1. Schedule left and right side TF SHIRLEY L5-S1 for nerve pain 2. Approximately 2 weeks after we will schedule you for left and right side SI joint injec tion 3. Follow-up after injections to discuss results Follow-up at the hospital thirty minutes before [...] of the procedure you must provide a electric pile driver operator to take you home. For all procedur es it is recommended that someone else drive you home. documented in this encounter Progress Notes Ana Cristina Tiwari PA-C - 08/16/2017 12:40 PM PSTFormatting of this note might be diffe rent from the original. CHIEF COMPLAINT: Chief Complaint Patient presents with Weakness in bilateral legs HISTORY OF PRESENT ILLNESS: The patient is a 72 y.o. male being seen today in follow-up for complaints of low back pain . He was last seen on 05/11/16 and has since been under the care of Dr. Jorge with a L1-S1 fus ion approximately 10 months ago. Patient reports that some symptoms have improved since tim nga that he is having some ongoing pain rated a 2 4/10. His pain is aggravated with sitt ing and riding in a car. His pain is in his buttocks bilateral and bilateral L5 dermatome r ight greater than left. He does report weakness of the bilateral lower extermities. The patient does not report r ecent falls or trauma. He does not have bowel and bladder dysfunction. He does not have s addle anesthesia. Treatments for these complaints have included physical therapy, hydrocodone, prior injectio ns performed by Dr. Haney. Patient's medications, allergies, past medical, surgical, social [...] a rash Oxycodone Rash REVIEW OF SYSTEMS: (in the last 24 [...] HEMATOLOGIC/LYMPHATIC: No abnormal bleeding PHYSICAL EXAMINATION: Vitals: 08/16/17 1239 BP: 138/73 Pulse: 51 PainSc: 2 PainLoc: Back Body mass index is 36.99 kg/m. GENERAL: The patient is well developed [...] has no apparent deficits with short or director long term care memory. He has appropriate fund of knowledge Cranial nerves 2-12 appear grossly intact. Sensory exam does show diminished sensation to light touch in the bilateral lower extremit ies equally. REFLEX: RIGHT LEFT PATELLAR 0 0 MUSCULOSKELETAL There is no major palpable deformity of the spine. Straight leg raise and slump-sit are negative. Memo's maneuver and impingement testing were negative for any groin pain. Patient has significant limitations in right hip interna l rotation no pain reports. There was no tenderness to palpation over the greater trochante rs. Focal tenderness to palpation over bilateral sacral sulci. The patient localized the m ajority of the pain to the bilateral SI region and and into the buttocks and down the legs i n the L5 dermatome. Strength testing showed 5/5 strength throughout the lower extremities wi th the exception of dorsiflexion 4/5 bilateral. The patient was able to toe walk without d ifficulty. Patient cannot walk on his right heel. There was no redness, effusion, warmth o r joint line tenderness in the knees or ankles. RADIOGRAPHIC REVIEW: The patient's imaging was reviewed in detail with the patient today during the visit. MRI dated 07/19/17 shows L1-2 left facet subluxation with mild left neural foraminal narrowing. L2-3 disc protrusion with severe and I'll stenosis and left neural foraminal narrowing with facet hypertrophy. L3-4 shows laminectomy with disc bulge, facet hypertrophy and moderate and I'll stenosis. L4-5 shows right laminectomy. L5-S1 shows left laminectomy at L1-S1 fus ion. ASSESSMENT: 1. Lumbar radiculopathy 2. Sacroiliitis, not elsewhere classified (HCC) 3. Lumbar postlaminectomy syndrome 4. Spinal stenosis of lumbar region without neurogenic claudication 5. Degenerative disc disease lumbar spine - he has degenerative changes at every level from L2 to S1. PLAN: 1. Patient is a 72-year-old returning post L1-S1 fusion reporting ongoing L5 radiculopathy right greater than left with right side L5 weakness and tenderness over bilateral SI joints . Conservative to aggressive treatment options were discussed and he has agreed to undergo bilateral TF SHIRLEY L5-S1 followed by SI joint injection bilateral proximally 2 weeks later 2. Medications have been reviewed at today's visit with no changes made at this time. He i s not benefiting from recent increase in gabapentin to 600 mg 3 times a day. Patient was ad vised that he could slowly wean down to previous dose if no pain recurrence is noted. 3. Patient recently underwent MRI 07/19/17 lumbar spine which has not yet been reviewed by Dr. Jorge. ELECTRONICALLY SIGNED BY: Shannan Tiwari PA-C, 08/16/2017 CC: Dr. Grijalva documented in this encounter Plan of Treatment Not on filedocumented as of this encounter Results [place] Sacroiliac Injection Left [...] + + | Performing | Address | City/State[facility] | Phone Number | [...] | | + +---------+ + + [place] SHIRLEY Lumbar Transforaminal (09/22/2017 1:53 PM PST) + + | Specimen | + + | | + + + + -+ | Narrative | Performed At | + + -+ | 09/22/2017 | [facility] | | Bilateral Transforaminal Epidural Steroid Injections Diagnosis: Lumbar | | | radiculopathy ICD-10 Code M54.16 Piter Fleming presents to the | | | fluoroscopy suite for fluoroscopically-guided bilateral L5-S1 | | | transforaminal epidural steroid injections as part of conservative | | | management for chronic pain with lumbar radiculopathy and degenerative | | | disk disease. After informed consent was obtained, [...] | | unspecified | + + | Sacroiliitis, not elsewhere classified (HCC) Sacroiliitis, not elsewhere classified | + + | Lumbar postlaminectomy syndrome Postlaminectomy syndrome, lumbar region | + + | Spinal stenosis of lumbar region without neurogenic claudication Spinal stenosis, | | lumbar region, without neurogenic claudication | + + | Degenerative disc disease lumbar spine - he has degenerative changes at every level | | from L2 to S1. Degeneration of lumbar or lumbosacral intervertebral disc | + + documented in this encounter
--- OUTSIDE RECORDS SUMMARY | ~2020-06-17 | XMS | Encounter Summary ---
Demographics + + + | Address | [address] | | | [place] [address] | + + + | Home Phone | | + + + | Preferred Language | Unknown | + + + | Marital Status | | + + + | Holiness Affiliation | CAT | + + + | Race | Unknown | + + + | Ethnic Group | Other Race | + + + Author + + + | Author | [facility] | + + + | Organization | [facility] | + + + | Address | Unknown | + + + | Phone | Unavailable | + + + Support +---------+ +---------+ + | Name | Relationship | Address | Phone | +---------+ +---------+ + | Unk Unk | ECON | Unknown | Unavailable | +---------+ +---------+ + Care Team Providers + +------+ + | Care Sweat Band Separator Name | Role | Phone | + +------+ + PCP | Unavailable | + +------+ + Encounter Details +--------+ + + + + | Date | Type | Department | Care Team | Description | +--------+ + + + + | 06/13/ | Results | [facility] | Derrek George V, | | | 2009 | Only | Department | [facility] [place] [place] | | | | | | [facility] D[facility] | | | | | | [address] | | | | | | [place] | | | | | | [address] | | | | | | | [...] | + +--------+ + + + | DERMATOPATHOLOGY(WET | Routin | 06/13/2010 | | Results for this | | [facility]) | e | | | procedure are in the | | | | | | results section. | + +--------+ + + + documented in this encounter Results DERMATOPATHOLOGY(WET [facility]) (06/13/2010) + + + + + + | Component | Value | Ref Range | Performed | Pathologist | | | | | At | Signature | + + + + + + | DERMATOPATH | SOURCE OF SPECIMEN:A | | [facility] | | | OLOGY(WET | FIRST TISSUE LEVEL IV | | DERMATOPATH | | | MNT) | [address] CLINICAL | | OLOGY | | | | DESCRIPTION:Shave, rt. | | | | | | lower paraspinal; 5 x 3 | | | | | | mm dark brown | | | | | | asymmetrical macule; | | | | | | R/Omelanoma. GROSS | | | | | | DESCRIPTION:Rt. lower | | | | | | paraspinal. The | | | | | | specimen is received in | | | | | | formalin, labeled | | | | | | rt.lower paraspinal, | | | | | | with the patient's name | | | | | | and consists of a pale | | | | | | zhu andbrown shave | | | | | | biopsy, measuring 0.9 x | | | | | | 0.6 cm. The specimen | | | | | | is trisected andentirely | | | | | | submitted in one | | | | | | cassette. | | | | | | MICROSCOPIC | | | | | | DESCRIPTION:There is a | | | | | | small to moderately | | | | | | broad symmetrical and | | | | | | well | | | | | | circumscribedmelanocytic | | | | | | neoplasm characterized | | | | | | by small, round to oval | | | | | | nests and | | | | | | singlemelanocytes along | | | | | | the basal layer of thin, | | | | | | hyperplastic, and | | | | | | hyperpigmentedrete | | | | | | ridges. The | | | | | | melanocytic nuclei are | | | | | | small and uniform, and | | | | | | most of thecells have | | | | | | cytoplasm containing | | | | | | melanin, also extending | | | | | | throughout theepidermis | | | | | | including the stratum | | | | | | corneum and in | | | | | | melanophages in the | | | | | | fibroticpapillary | | | | | | dermis. 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 | | | | | | NOTE: The right | | | | | | lower paraspinal | | | | | | MELANOCYTIC NEVUS | | | | | | extends closely to | | | | | | thesurgical margins of | | | | | | the shave specimen. | | | | | | VBK/[id number]// | | | | | | Case review | | | | | | by:Kailey Kinney, | | | | | | M.D. / Dermatopathology | | | | | | Nain Mckeon, | | | | | | M.D. / | | | | | | Dermatopathologist | | | | | | My electronic signature | | | | | [...] Diagnostician: | | | | | | Mason Mckeon | | | | | | Alisi | | | | | | wilmer Signed 06/20/2010 | | | | + + + + + + + + | Specimen | + + | | + + + + + + + | Performing | Address | City/State/Zipcode | Phone Number | | Organization | | | | + + + + + | [facility] | [address] | [place] [address] | | | DERMATOPATHOLOGY | [address] | | | + + + + + | [facility] | [id number] | [place] [address] | | | DERMATOPATHOLOGY | [address] | | | + + + + + documented in this encounter Visit Diagnoses Not on filedocumented in this encounter"
--- OUTSIDE RECORDS SUMMARY | ~2020-06-17 | XMS | Encounter Summary ---
Demographics + + + | Address | [address] | | | [place] [address] | + + + | Home Phone | | + + + | Preferred Language | Unknown | + + + | Marital Status | | + + + | Restoration Affiliation | [id number] | + + + | Race | White | + + + | Ethnic Group | Not or | + + + Author + + + | Author | [facility] | | | and [place] [...] + + + + + | Aby Fleimng | ECON | [address] | | | | | [place] | | | | | [address] | | + + + + + | Mason Fleming | ECON | Unknown | | + + + + + Care Team Providers + +------+ + | Care Barrel Raiser Name | Role | Phone | + +------+ + | Michael Grijalva | PCP | | | MD | | | + +------+ + Reason for Visit + + + | Reason | Comments | + + + | Back Pain | xrays prior | + + + Evaluate & Treat (Routine) +--------+--------+ + + + + | Status | Reason | Specialty | Diagnoses / | Referred By | Referred To | | | | | Procedures | Contact | Contact | +--------+--------+ + + + + | Closed | | Neurosurgery | Diagnoses | [place] | Joshua Jorge | | | | | Back pain | Michael López MD [address] | | | | | Procedures | MD Cliff [address] | | | | | [place] OFFICE | [address] | [place], [place] | | | | | CONSULTATION | [address] | [address] | | | | | NEW/ESTAB | [address] | Phone: | | | | | PATIENT [address] | [place], | [phone] | | | | | MIN | [place] [address] | Fax: | | | | | | Phone: | [phone] | | | | | | [phone] | | | | | | | Fax: | | | | | | | [phone] | | +--------+--------+ + + + + Encounter Details +--------+---------+ + + + | Date | Type | Department | Care Team | Description | +--------+---------+ + + + | 03/09/ | Office | [facility] | Joshua Jorge MD | Lumbar scoliosis | | 2013 | Visit | NEUROSURGERY [address] | [address] | (Primary Dx); Lumbar | | | | [address] | [place] [address] | stenosis with | | | | [place] | [phone] | neurogenic | | | | [address] | | claudication; | | | | [phone] | | Degenerative disc | | | | | | disease, lumbar; | | | | | | Facet arthropathy, | | | | | | lumbar | +--------+---------+ + + + Social [...] + + + | Blood Pressure | 126/64 | 03/09/2014 11:26 AM | | | | | PDT | | + + + + + | Pulse | 52 | 03/09/2014 11:26 AM | | | | | PDT | | + + + + + | Temperature | - | - | | + + + + + | Respiratory Rate | 16 | 03/09/2014 11:26 AM | | | | | PDT | | + + + + + | Oxygen Saturation | - | - | | + + + + + | Inhaled Oxygen | - | - | | | Concentration | | | | + + + + + | Weight | 115.7 kg (255 lb) | 03/09/2014 11:26 AM | | | | | PDT | | + + + + + | Height | 185.4 cm (6' 1") | 03/09/2014 11:26 AM | | | | | PDT | | + + + + + | Body Mass Index | 33.64 | 03/09/2014 11:26 AM | | | | | PDT | | + + + + + documented in this encounter Progress Notes Estela Hoskins RN - 03/09/2014 11:21 AM PDTFormatting of this note might be different fro m the original. Joshua Jorge MD [address] [facility], [address] [place] [address] FAX: NEUROSURGERY HISTORY AND PHYSICAL EXAMINATION CHIEF COMPLAINT: Chief Complaint Patient presents with Back Pain xrays prior HISTORY OF PRESENT ILLNESS: The patient is a 68 y.o. male with the complaint of back pain for decades. He has flare-ups of severe pain with the last one about 8 weeks ago. The sym ptoms have been gradually improving since the flare-up. He rates the pain as moderate. The symptoms are daily. He describes the pain as a dull, numbing, tight band and tingling. He has pain in both of his legs in his posterior legs. He has chronic bilateral foot numbness . He can only stand short amounts of time or walk bent forward. His symptoms improve with rest and bending. His symptoms worsen with standing, sitting, kneeling, bending and twisting. He has tried therapy and injections. PAST MEDICAL HISTORY: Past Medical History Diagnosis Date Depression Hx of gastric bypass High cholesterol Kidney stones Thyroid disease Neuropathy Hands and Feet PAST SURGICAL HISTORY: Past Surgical History Procedure Date Appendectomy Jun 2008 Gallbladder surgery Total knee arthroplasty / Gastric bypass surgery CURRENT MEDICATIONS: Current Outpatient Prescriptions Medication Sig Dispense Refill acetaminophen (TYLENOL) 500 mg tablet Take 500 mg by mouth nightly. BETAMETHASONE Take by mouth as needed. Calcium Carbonate-Vitamin D (CALTRATE 600+D PO) TABS; Take 1 tablet by mouth twice emilie y Cholecalciferol (D3-50) 31169 UNITS CAPS 50,000 Units Once a week. [...] patient reports that he quit smoking about 33 years ago. He has never used smokeless t obacco. He reports that he drinks alcohol. He reports that he does not use illicit drugs. FAMILY HISTORY: Family History Problem Relation Age of Onset Arthritis Diabetes Gout Heart defect REVIEW OF SYSTEMS: GENERALLY: No fever, no [...] no rheumatoid arthritis. PHYSICAL EXAMINATION: Blood pressure 126/64, pulse 52, resp. rate 16, height 1.854 m (6' 1"), weight 115.667 kg ( 255 lb). Body mass index is 33.65 kg/(m^2). GENERAL: Piter Fleming is in no acute distress with unlabored respirations. The virgen ent does not appear uncomfortable throughout the exam today. HEENT: HEAD/FACE: EYES: EARS: NASOPHARNYX: OROPHARNYX: Normocephalic and atraumatic. There are no areas of recent trauma. Normal sclerae without icterus. No drainage or tenderness. Clear without drainage. Clear without erythema. NECK (ANTERIOR): Supple and without palpable masses. CHEST: Clear to ausculation without crackles or wheeze. HEART: Regular rate and rhythm without murmurs. ABDOMEN: Soft, non-tender, non-distended, and without palpable masses. The patient is obe se. SPINE: There is no tenderness in the midline of the cervical or thoracic spine. There is p alpable deformity of the spine. The lumbar spine shows there is tenderness in the midline of the L3, L4, L5 levels. To pal pation, there is no signficant myofascial tenderness. EXTREMITIES: No cyanosis, clubbing, or edema. Distal pulses are palpable. NEUROLOGICAL EXAM: MENTAL STATUS: The patient is awake, alert, and oriented. He follows simple and complex commands. He speech is fluent, he comprehends speech well, and he repeats well. He has no apparent deficits with short or rat exterminator memory. CRANIAL NERVES: II: Acuity is diminished. [...] Intrinsics 5 5 Ulnar Intrinsics 5 5 Television Presenter Strength 5 5 Hip Flexion 5 5 [...] images show severe multilevel lumbar disease with scoliosis, stenosis from L1-L5 with the wo rst findings L2-L4, and degenerative disc disease L2-S1. He has severe multilevel facet art hropathy. ASSESSMENT: NEUROSURGICAL DIAGNOSES: Encounter Diagnoses Name Primary? Lumbar scoliosis Yes Lumbar stenosis with neurogenic claudication Degenerative disc disease, lumbar Facet arthropathy, lumbar GENERAL DIAGNOSES: Past Medical History Diagnosis Date Depression Hx of gastric bypass High cholesterol Kidney stones Thyroid disease Neuropathy Hands and Feet PLAN: It was a pleasure meeting and evaluating this patient today, and I greatly appreciate the r eferral. The patient has severe lumbar disease. He had previously discussed surgery with Chadwick Cortes. I had a lengthy discussion with the patient about his options for care includ ing surgical and non-surgical options. He is not currently ready to commit to surgery. I asked he follow-up when he feels he has either worsened clinically or is dissatisfied wit h his limitations on his ADL's. ELECTRONICALLY SIGNED BY: Joshua Jorge MD, 03/09/2014 12:26 documented in this encou nter Miscellaneous Notes Miscellaneous - [facility] - 03/09/2014 12:00 AM PDT iscellaneous - [facility] - 03/09/2014 12:00 AM PDTEle ctronically signed by Chun Ren at 03/15/2014 7:54 AM PDTdocumented in this encounter Plan of Treatment Not on filedocumented as of this encounter Visit Diagnoses + + | Diagnosis | + + | Lumbar scoliosis - Primary Scoliosis (and kyphoscoliosis), idiopathic | + + | Lumbar stenosis with neurogenic claudication Spinal stenosis, lumbar region, with | | neurogenic claudication | + + | Degenerative disc disease, lumbar Degeneration of lumbar or lumbosacral | | intervertebral disc | + + | Facet arthropathy, 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
--- OUTSIDE RECORDS SUMMARY | ~2020-06-17 | XMS | Encounter Summary ---
Demographics + + + | Address | [address] | | | [place] [address] | + + + | Home Phone [...] | Author | [facility] | | | and [...] [place] | | | | | [address] | | + + + + + | Mason Fleming | ECON | Unknown | | + + + + + Care Team Providers + +------+ + | Care Banana Carrier Name | Role | Phone | + +------+ + | Michael Grijalva | PCP | | | MD | | | + +------+ + Encounter Details +--------+ + + + + | Date | Type | Department | Care Team | Description | +--------+ + + + + | 06/12/ | Orders Only | [facility] [place] | Joshua Jorge MD | Lumbar radiculopathy | | 2016 | | NEUROSURGERY [address] | [address] | (Primary Dx); | | | | [address] | [place] [address] | Spinal stenosis, | | | | [place] | [phone] | lumbar region, with | | | | [address] | | neurogenic | | | | [phone] | | claudication; | | | | [...] filedocumented as of this encounter Results XR Chest PA and Lateral (08/06/2016 1:22 PM PST) + + | Specimen | + + | | + + + + + | Narrative | Performed At | + + + | XR CHEST PA AND LATERAL 08/06/2016 1:22 PM HISTORY: preoperative | [facility] | | clearance. COMPARISON: None. Findings: Heart size is within | [facility] | | normal limits. There is atherosclerosis of the aorta. Mediastinum is | [facility] | | unremarkable. Central pulmonary vasculature is normal. Mild scarring | - IMAGING | | are visualized of the bilateral lung bases. Blunting of the | | | costophrenic angles are seen that could be related to scarring versus | | | tiny pleural effusions. There is moderate spondylosis. IMPRESSION | | | - Blunting of bilateral costophrenic angles that could represent | | | scarring versus tiny pleural effusions. Dictated and Signed by: | | | Chema Dee MD Electronically signed: 08/06/2016 4:06 PM | | + + + + + | Procedure Note | + + | Benito, Rad Results In - 08/06/2016 4:10 PM PST XR CHEST PA AND LATERAL 08/06/2016 1:22 | | PMHISTORY: preoperative clearance.COMPARISON: None.Findings:Heart size is within normal | | limits. There is atherosclerosis of the aorta.Mediastinum is unremarkable. Central | | pulmonary vasculature is normal. Mildscarring are visualized of the bilateral lung | | bases. Blunting of thecostophrenic angles are seen that could be related to scarring | | versus tinypleural effusions. There is moderate spondylosis.IMPRESSION -Blunting of | | bilateral costophrenic angles that could represent scarring versustiny pleural | | effusions.Dictated and Signed by: Chema Dee MD Electronically signed: 08/06/2016 4:06 | | PM | |scarring are visualized of the bilateral lung bases. Blunting of the | |costophrenic angles are seen that could be related to scarring versus tiny | |pleural effusions. There is moderate spondylosis. | | | |IMPRESSION - | |Blunting of bilateral costophrenic angles that could represent scarring versus | |tiny pleural effusions. | | | |Dictated and Signed by: Chema Dee MD | | Electronically signed: 08/06/2016 4:06 PM | + + + + + + + | Performing | Address | City/State/Zipcode | Phone Number | | Organization | | | | + + + + + | [facility] | [address] | [place], [place] | [phone] | | [facility] | | [address] | | | - IMAGING | | | | + + + + + ECG 12 lead (08/06/2016 1:00 PM PST) [...] | | | | AISLINN MCCORMICK MD ([id number]) | | | | | | on [...] | Cells | | M/uL | [facility] | | | | [...] | | Monocytes | | K/uL | [facility] | | | | | | MEDICAL | | | | | | CENTER - | | | | | | LABORATORY | | + + + + + + | Absolute | 0.10 | 0.00 - 0.40 | [facility] | | | Eosinophils | | K/uL | [facility] | | | | | | MEDICAL | | | | | | CENTER - | | | | | | LABORATORY | | + + + + + + | Absolute | 0.10 | 0.00 - 0.10 | [facility] | | | Basophils | | K/uL | [facility] | | | | | [...] [address] | [place] | [phone] | | [facility] | | [address] | | | - LABORATORY | | [...] 16 | 7 - 18 mg/dL | [facility] | | | | | | [facility] | | | | | | MEDICAL | | | | | | CENTER - | | | | | | LABORATORY | | + + + + + + | Creatinine | 0.85 | 0.60 - 1.30 | [facility] | | | | | mg/dL | [facility] | | | | | | MEDICAL | | | | | | CENTER - | | | | | | LABORATORY | | + + + + + + | eGFR, | >60Comment: GLOMERULAR | >=60 | [facility] | | | non- | FILTRATION | mL/min/1.73m2 | [facility] | | | [place] | RATE,ESTIMATED | | MEDICAL | | | | mL/min/1.03s1Cwwm than | | CENTER - | | [...] | | | | mg/dL | [facility] | | | | [...] ST. | [address] | [place] | [phone] | | [facility] | | [address] | | | - LABORATORY | | [...]
--- OUTSIDE RECORDS SUMMARY | ~2020-06-17 | XMS | Encounter Summary ---
Demographics + + + | Address | [address] | | | [place] [address] | + + + | Home Phone | | + + + | Preferred Language | Unknown | + + + | Marital Status | | + + + | Shinto Affiliation | 1013 | + + + | Race | White | + + + | Ethnic Group | Not or | + + + Author + + + | Author | [facility] | | | and [place] | + + + | Organization | [facility] | | [...] [place] | | | | | [address] | | + + + + + | Mason Fleming | ECON | Unknown | | + + + + + Care Team Providers + +------+ + | Care Senior Visual Designer Name | Role | Phone | + [...] | Lumbar | [place], | [address] | | | | | radiculopath | Peter Cunha MD | [place], | | | | | y | [address] | [place] | | | | | Procedures | [place] | [address] | | | | | IN INJECT | [place] | Phone: | | | | | ANES/STEROID | [address] | [phone] | | | | | FORAMEN | Phone: | Fax: | | | | | LUMBAR/SACRA | [phone] | [phone] | | | | | L W IMG | Fax: | | | | | | GUIDE ,1 | [phone] | | | | | | LEVEL IN | | | | | | | TRIAMCINOLON | | | | | | | E ACET INJ | | | | | | | NOS, 10 MG | | | | | | | Bilat. | | | | | | | T-12-L1 | | | | | | | TFESI | | | +--------+--------+ + + + + Encounter Details +--------+ + + + + | Date | Type | Department | Care Team | Description | +--------+ + + + + | 03/15/ | Hospital | [facility] | Efraín Turk, | Thoracic spine pain; | | 2019 | Encounter | MED CTR XRAY [address] | PA-C [address] | Lumbar | | | | [place] | [address] [place] | radiculopathy | | | | [place] [address] | [place] [address] | | | | | [phone] | [phone] | | | | | | | | | | | | [place] | | | | | | [...] +---------+ + + | Blood Pressure | 175/77 | 03/15/2019 2:38 PM | | | | | PDT | | + +---------+ + + | Pulse | 47 | 03/15/2019 2:38 PM | | | | | PDT [...] | [place] EPIDURAL STEROID | Routin | 03/15/2019 | Thoracic spine | Results for this | | INJECTION LUMBAR | e | 2:16 PM | pain Lumbar | procedure are in the | | TRANSFORAMINAL | | PDT | radiculopathy | results section. | + +--------+ + [...] + + | Performing | Address | City/State/[facility] | Phone Number | | [...] dexamethasone (PF) 10 mg/mL | Given | 03/15/20 | 15 mg | | | | injection 15 mg 15 mg, Other, | | 19 2:32 | | | | | ONCE, Wed03/15/19 at 1415, For 1 | | PM PDT | | | | | dose, When ordered IV push: | | | | | | | Dilute to 10-20 mL with NS and | | | | | | | give slowly over 1-2 minutes., | | | | | | + +--------+ +-------+------+------+ +---+---+ | | | +---+---+ + +-------+ +-------+---+---+ | iohexol (OMNIPAQUE 300) 300 | Given | 03/15/20 | 4 mLs | | | | mg/mL injection 4 mL 4 mL, | | 19 2:30 | | | | | INTRATHECAL, ONCE, Wed03/15/19 at | | PM PDT | | | | | 1415, For 1 dose | | | | | | + +-------+ +-------+---+---+ +---+---+ | | | +---+---+ + +-------+ +-------+---+---+ | lidocaine (PF) 1% injection 2 | Given | 03/15/20 | 2 mLs | | | | mL 2 mL, Other, ONCE, Wed | | 19 2:33 | | | | | 03/15/19 at 1415, For 1 dose | | PM PDT | | | | + +-------+ +-------+---+---+ +---+---+ | | | +---+---+ + +-------+ +-------+---+ + | lidocaine buffered 0.9% | Given | 03/15/20 | 6 mLs | | Other | | injection 6 mL 6 mL, | | 19 2:28 | | | (Comment | | Intradermal, ONCE, 03/15/19 at | | PM PDT | | | ) | | 1415, For 1 dose | | | | | | + +-------+ +-------+---+ + +---+---+ | | | +---+---+ documented in this encounter"
--- OUTSIDE RECORDS SUMMARY | ~2020-06-17 | XMS | Encounter Summary ---
Demographics + + + | Address | [address] | | | [place] [address] | + + + | Home Phone [...] + + + | Author | [facility] | | | and [place] | + + + | Organization | [facility] | | | [...] [place] | | | | | [address] | | + + + + + | Mason Fleming | ECON | Unknown | | + + + + + Care Team Providers + +------+ + | Care Associate Java Developer Name | Role | Phone | + +------+ + | Michael Grijalva | PCP | | | MD | | | + +------+ + Reason for Visit +--------+--------+ + | Reason | Onset | Comments | | | Date | | +--------+--------+ + | Other | 02/05/ | Reschedule 02/20/14 office visit | | | 2013 | | +--------+--------+ + Encounter Details +--------+ + + + + | Date | Type | Department | Care Team | Description | +--------+ + + + + | 02/05/ | Telephone | [facility] | Joshua Jorge MD | Other (Reschedule | | 2013 | | NEUROSURGERY [address] | [address] | 02/20/14 office | | | | [address] [facility] [address] | [place] [address] | visit) | | | | [place] | [phone] | | | | | [address] | | | | | | [phone] | | | +--------+ + + + [...] this encounter Miscellaneous Notes Telephone Encounter - Margarette Santiago - 02/06/2014 4:13 PM PDTRescheduled to 03/09/14.E lectronically signed by Margarette Santiago at 02/06/2014 4:18 PM PDTTelephone Encounter - Griselda Concepcion - 02/06/2014 3:15 PM PDTPatient returned margarette's call to rescheduled he w ould like to be called on his cell [phone] signed by Griselda Mendez at 02/06/2014 3:16 PM PDTTelephone Encounter - Margarette Santiago - 02/05/2014 2:45 PM PDTLef t a message to rescdorisule Piter's 02/20/14 office visit. Requested callback. documented in this encounter Plan of Treatment Not on filedocumented as of this encounter Visit Diagnoses Not on filedocumented in this encounter"
--- OUTSIDE RECORDS SUMMARY | ~2020-06-17 | XMS | Encounter Summary ---
Demographics + + + | Address | [address] | | | [place] [address] | + + + | Home Phone [...] | Author | [facility] | | | and [...] [place] | | | | | [address] | | + + + + + | Mason Fleming | ECON | Unknown | | + + + + + Care Team Providers + +------+ + | Care Cementer Machine Joiner Name | Role | Phone | + +------+ + | Michael Grijalva | PCP | | | MD | | | + +------+ + Reason for Visit + +--------+ + | Reason | Onset | Comments | | | Date | | + +--------+ + | Appointment Question | 06/30/ | | | | 2019 | | + +--------+ + Encounter Details +--------+ + + + + | Date | Type | Department | Care Team | Description | +--------+ + + + + | 06/30/ | Telephone | [facility] [place] [place] | Peter Haney | Appointment Question | | 2018 | | PHYSIATRY [address] | TMD [address] | | | | | [address] | [place] | | | | | [place] | [address] | | | | | [address] | | | | | | [phone] | | | +--------+ + + + [...] Miscellaneous Notes Telephone Encounter - Pepper Jimenez, Investigator Claims - 07/14/2019 10:29 AM Tana Richardson notified referral and orders placed. Hold placed for injections on 08/03/2019 at 3:00pm. Reminder set to follow up on approval. Electronically signed by Pepper Jimenez [facility] u[employer]en Central Supply Aide at 07/14/2019 10:30 AM PSTTelephone Encounter - Peter Haney MD - 07/14 9:30 AM PSTOrders competed and signed. elephone Encounter - Mahogany Elena CMA - 07/13/2019 9:03 AM PSTI called and spoke with [facility]. He reports that if we are able to do the injections bilater ally he would appreciate it. Dr. Knox- please place orders. elephone Encounter - Peter Haney MD - 019 2:22 PM PSTI recommend that we just do the injection at the hospital again then. Plemarleni e clarify if he wants one or both sides done and then I will order the procedure(s).Arnaldo morales signed by Peter Haney MD at 07/12/2019 2:23 PM PSTTelephone Encounter - Mahogany Wilburn CMA - 07/12/2019 11:48 AM PSTDr. Haney- It sounds like Dr. Seaman is giv ing us the Ok to schedule [facility] for repeat ischial tuberosity bursa injections. Are you ok wit h proceeding? If this will be done under [facility] guidance orders are needed. Patient states t hat he doesn't feel like the one in the office helped anymore than the ones done prior in ra diology. Please advise. elephone Encounter - Abimbola Malin Cert MA - 07/11/2019 10:[address]W ru garcia to start the process for scheduling total hip arthroplasty. Per Dr.Willard Garcia for [facility] to proceed forward with the ischial tuberosity bursa injections prior to surgery. El ectronically signed by Meredith Golden MA at 07/11/2019 10:14 AM PSTTelephone E elsieunttor - Mahogany Elena CMA - 07/03/2019 1:43 PM PSTI called [facility] and gave him the mes imelda from Dr. Haney. He states that he will go ahead and call Dr. Seaman's office to f ind out about clearance. He will call our office to schedule repeat ischial tuberosity bursa injections if ok'd by Dr. Seaman.Electronically signed by Mahogany Elena CMA at 019 1:44 PM PSTTelephone Encounter - Peter Haney MD - 07/03/2019 12:32 PM PSTI sohail k it would be a good plan to have the hip surgery prior to a spinal cord stimulator trial. As for the injection, my only concern is that it might postpone the hip surgery. We would have to get it cleared with Dr. Seaman. I know that he would not want an intraarticular hi p injection near the time of hip surgery but I don't know what he would say about an ischial tuberosity bursa injection. 12: 36 PM PSTTelephone Encounter - Pepper Jimenez, Investigator Claims - 07/03/2019 9:47 AM [facility]P [facility] recommended he have hip surgery prior to SCS placement. Felicia crawford Damir Fleming is not yet scheduled for hip surgery. He would like to know what Dr. Emma estes and Efraín Turk PA-C recommend. He stated that his hip pain is worse then the back pain and that more and more everyday he feels that he needs the hip surgery. He also stated that in the past he's had ischial tuberosity bursa injections and that these provided relief for about 3 weeks and if for the time being he can receive these injections again? Electronicall y signed by Pepper Jimenez, Investigator Claims at 07/03/2019 10:09 AM PSTTelephone Encounter - Natalia Jackson - 06/30/2019 9:48 AM PDTPatient called and states he needs surgery on one of his hips and would like to do that first before scheduling for SCS, would like a return c all to advise and possible injection 9: 50 AM PDTdocumented in this encounter Plan of Treatment Not on filedocumented as of this encounter Visit Diagnoses Not on filedocumented in this encounter"
--- OUTSIDE RECORDS SUMMARY | ~2020-06-17 | XMS | Encounter Summary ---
Demographics + + + | Address | [address] | | | [place] [address] | + + + | Home Phone | | + + + | Preferred Language | Unknown | + + + | Marital Status | | + + + | Orthodoxy Affiliation | 1013 | + + + | Race | White | + + + | Ethnic Group | Not or | + + + Author + + + | Author | [facility] | | | and [place] [...] [place] | | | | | [address] | | + + + + + | Mason Fleming | ECON | Unknown | | + + + + + Care Team Providers + +------+ + | Care Finished Stock Inspector Name | Role | Phone | + +------+ + | Michael Grijalva | PCP | | | MD | | | + +------+ + Reason for Visit + + + | Reason | Comments | + + + | Pre-op Exam | Surgery on 08/10/2016 | + + + Encounter Details +--------+---------+ + + + | Date | Type | Department | Care Team | Description | +--------+---------+ + + + | 08/06/ | Office | [facility] | Gael Melgar | Lumbar spinal | | 2016 | Visit | NEUROSURGERY [address] | D, PA-C [address] | stenosis (Primary | | | | [address] | [address] | Dx); Lumbar | | | | [place], [place] | [place], [place] | foraminal stenosis; | | | | [address] | [address] | Bilateral low back | | | | [phone] | | pain without | | | | | | sciatica, | | | | | | unspecified | | | | | | chronicity | +--------+---------+ + + + Social History [...] + + + | Blood Pressure | 133/68 | 08/06/2016 3:23 PM | | | | | PST | | + + + + + | Pulse | 51 | 08/06/2016 3:23 PM | | | | | PST [...] + + + + | Weight | 111.2 kg (245 lb 3.2 | 08/06/2016 3:23 PM | | | | oz) | PST | | + + + + + | Height | 185.4 cm (6' 1") | 08/06/2016 3:23 PM | | | | | PST | | + + + + + | Body Mass Index | 32.35 | 08/06/2016 3:23 PM | | | | | PST | | + + + + + documented in this encounter Patient Instructions Patient Instructions Gael Melgar PA-C - 08/06/2016 3:49 PM PSTPlease remember n ot to take any anti-inflammatories within 7 days of surgery. This includes ibuprofen, Motri n, Advil, aspirin, naproxen, and Aleve. You may have a small glass of water on the morning of surgery to take your normal morning medications. Otherwise, nothing to eat or drink afte r midnight. If you have any change in your health status, please call and let us know. Last ly, If you have any questions, please feel free to give our office a call. Otherwise, we wi ll see you on the morning of surgery. documented in this encounter Progress Notes Kim Jaimes RN - 08/07/2016 10:19 AM PSTPatient in office for pre op appointment. Ronda ent advised at this time to stop: Multi vit, DHEA (7 days prior); lisinopril (Hold morning o f surgery). Patient verbalized understanding. All questions answered at this time. Gael Sauceda PA-C - 08/06/2016 4:24 PM PST . Gael Melgar PA-C [address] [facility] [place] [address] FAX: NEUROSURGERY HISTORY AND PHYSICAL EXAMINATION CHIEF [...] Total knee arthroplasty /-2010 Gastric bypass surgery morbid obesity Rotator cuff repair Right 06/2015 [...] has no apparent deficits with short or residential memory. CRANIAL NERVES: II: Acuity is diminished. [...] Intrinsics 5 5 Ulnar Intrinsics 5 5 Parimutuel Ticket Checker Strength 5 5 Hip Flexion 5 5 [...] PA-C, 08/06/2016 16:24 documented in this encounter Plan of Treatment Not on filedocumented as of this encounter Procedures + +--------+ + + + | Procedure Name | Priori | Date/Time | Associated Diagnosis | Comments | | | ty | | | | + +--------+ + + + | IMAGING REPORT - | | 08/17/2016 | | Results for this | | EXTERNAL SCAN | | 12:00 AM | | procedure are in the | | | | PST | | results section. | + +--------+ + + + documented in this encounter Results IMAGING REPORT - EXTERNAL SCAN (08/17/2016 12:00 AM PST) + + + | Narrative | Performed At | + + + | Ordered by an | | | unspecified provider. | | + + + documented in this encounter Visit Diagnoses + + | Diagnosis | + + | Lumbar spinal stenosis - Primary Spinal stenosis, lumbar region, without neurogenic | | claudication | + + | Lumbar foraminal stenosis Spinal stenosis, lumbar region, without neurogenic | | claudication | + + | Bilateral low back pain without sciatica, unspecified chronicity | + + documented in this encounter
--- OUTSIDE RECORDS SUMMARY | ~2020-06-17 | XMS | Encounter Summary ---
Demographics + + + | Address | [address] | | | [place] [address] | + + + | Home Phone [...] | Author | [facility] [place] | | | and [place] | [...] [place] | | | | | [address] | | + + + + + | Mason Fleming | ECON | Unknown | | + + + + + Care Team Providers + +------+ + | Care Sewage Disposal Engineer Name | Role | Phone | [...] | Specialty | Sports | Diagnoses | Jonah, | Jonah, | | | Services | Medicine / | Hamstring | MD Brandon | MD Brandon | | | Required | Family | tendinitis | [address] | | | | Medicine | of left | [address] | [address] | | | | | thigh | [place], | [place], | | | | | | [place] | [place] [address] | | | | | | [address] | Phone: | | | | | | Phone: | [phone] | | | | | | [phone] | Fax: | | | | | | Fax: | [phone] | | | | | | [phone] | | +--------+ + + + + + Reason for Visit + + + | Reason | Comments | + + + | Hip Pain | Bilateral hip pain, with pain worse in the left hip. | + + + Evaluate & Treat [...] | of right | [address] | [place] | | | | | buttock | [address] | [address] | | | | | Ischial | [place], | [address] [place] | | | | | bursitis of | [place] [address] | [place] | | | | | left side | Phone: | [phone] | | | | | | [phone] | Phone: | | | | | | Fax: | [phone] | | | | | | [phone] | Fax: | | | | | | | [phone] | +--------+ + + + + + Encounter Details +--------+---------+ + + + | Date | Type | Department | Care Team | Description | +--------+---------+ + + + | 02/01/ | Office | [facility] | Brandon Mckenzie MD | Hamstring | | 2019 | Visit | [facility] | [address] | tendinopathy of left | | | | [address] | [address] [place], | thigh (proximal) | | | | [place], [place] | [place] [address] | (Primary Dx) | | | | [address] | [phone] | | | | | [phone] | | | +--------+---------+ + + + [...] + + + | Blood Pressure | 148/70 | 02/01/2019 11:27 AM | | | | | PDT | | + + + + + | Pulse | 67 | 02/01/2019 11:27 AM | | | | | PDT | | + + + + + | Temperature | 36.1 C (97 F) | 02/01/2019 11:27 AM | | | | | PDT | | + + + + + | Respiratory Rate | 20 | 02/01/2019 11:27 AM | | | | | PDT | | + + + + + | Oxygen Saturation | 96% | 02/01/2019 11:27 AM | | | | | PDT | | + + + + + | Inhaled Oxygen | - | - | | | Concentration | | | | + + + + + | Weight | 117.8 kg (259 lb | 02/01/2019 11:27 AM | | | | 11.2 oz) | PDT | | + + + + + | Height | - | - | | + + + + + | Body Mass Index | 35.72 | 01/04/2019 1:37 PM | | | | | PDT | | + + + + + documented in this encounter Progress Notes Brandon Mckenzie MD - 02/01/2019 11:00 AM PDT Sports Medicine Visit Assessment & Plan: 1. Hamstring tendinopathy of left thigh (proximal) - Sports Med Injection Patient with chronic lumbopelvic pain in multiple locations that has been managed previousl y with physiatry. Patient referred for pain near the ischial tuberosity as well as the prox imal hamstring primarily through the medial proximal hamstring tendon consistent with chroni c tendinopathy. Patient has temporarily responded to fluoroscopic guided ischial bursa inje ctions previously but has had recurrence of his pain more predominantly on the left but also on the right. After an extensive discussion on the mechanics of the pelvis, hamstring, lum bar spine and the interplay of prior pathology and his overall stiffness and hypertonic musc ulature throughout the lower extremities, I recommended that the patient undergo an ultrasou nd-guided percutaneous needle tenotomy of the proximal hamstring likely at the musculotendin ous junction which is the area of most significant pain extending more proximally. Prior fluoroscopic and MRI imaging was reviewed with the patient but I did recommend that h e obtain the hip x-ray that was ordered by Efraín Turk. Following approval for the tenotomy procedure we will get the patient scheduled at my next available with recommendations for subsequent formal physical therapy and home exercise prog anthony to work on decreasing muscle tension, improving strength and optimizing lumbopelvic neur omuscular recruitment for stability to offload the hamstring with ambulation. Total time today is 45 minutes, >75% of which is in counseling and coordination of care reg arding the above issue(s). All of the patients questions were addressed and answered at time of the office visit. Christiano nk you for allowing us to share in the care of your very pleasant patient. Subjective: CC: Hip Pain (Bilateral hip pain, with pain worse in the left hip. ) HPI: Piter Fleming is a 73 y.o. male seen at the request of TANNER Eisenberg for lul luation of bilateral hip pain primarily through the "sits bone". Patient was most recently seen in December by Efraín for evaluation of low/mid back and buttocks pain. He has known history of extensive lumbar surgical intervention back in 2015 and had multiple areas of pain throu gh the bilateral initial tuberosity, right lateral hip and thoracolumbar spine. Patient was referred for 6-7 out of 10 pain over the left>right ischial tuberosity particular with prol onged sitting. Pain would occasionally radiate down the hamstring and would happen simultan eously with bilateral lateral hip pain over the greater trochanter. He had a right intra-ar ticular hip injection in September 2018 that did not significantly improve his pain beyond 1 month. Pain today is described as aching with a conversion to sharp/throbbing sensation directly o mirian the initial tuberosity with extension along the hamstring tendon into the muscle body ap proximately 3 to 4 cm below the initial tuberosity. Patient reports that when the pain radi ates down the leg he will occasionally be spasm in quality. This is been more noticeable wh en walking with changes of elevation (eccentric loading of the hamstring). He denies any nu mbness over the area. Denies burning sensation. PMH: Past Medical History: Diagnosis Date Asthma, intrinsic [...] Sleep apnea Spinal stenosis, lumbar Thyroid disease PSH: Past Surgical History: Procedure Laterality Date APPENDECTOMY 1958 CHOLECYSTECTOMY 06/2006 COLONOSCOPY 06/2011 no polyps GALLBLADDER SURGERY 2006 GASTRIC BYPASS SURGERY morbid obesity LUMBAR SPINE SURGERY Left 08/10/2016 Procedure: L2-3, L3-4, L4-5 Lateral Anterior Interbody Fusion, L5-S1 Transforaminal Lumbar Interbody Fusion, L3-4 Decompression; Surgeon: Joshua Jorge MD; Location: [facility] ROTATOR CUFF REPAIR Right 06/2015 TONSILLECTOMY AND ADENOIDECTOMY 1951 TOTAL KNEE ARTHROPLASTY Bilateral / WRIST SURGERY 2010 Hardware removal SocHx: Social History Occupational History Comment: Retired Tobacco Use Smoking status: Former Smoker Packs/day: 1.00 Years: 16.00 Pack years: 16.00 Last attempt to quit: 08/30/1980 Years since quittin.4 Smokeless tobacco: Never Used Substance and Sexual Activity Alcohol use: Yes Alcohol/week: 0.0 oz Comment: Rarely/Socially Drug use: No Sexual activity: Yes Comment: Rarely FMHx: Family History Problem Relation Age of Onset Other (see comment) Father 80 kidney failure High blood pressure Father No known problems Paternal Grandfather No known problems Paternal Grandmother No known problems Maternal Grandfather No known problems Maternal Grandmother Arthritis Other Diabetes Other Gout Other Heart defect Other Nsaids; Latex; and Oxycodone Outpatient Medications Prior to Visit Medication Sig Dispense Refill [...] Take 1,000 mcg by mouth Daily. No facility-administered medications prior to visit. Review of Systems Constitutional: Negative for chills, fatigue and fever. HENT: Negative for rhinorrhea and sore throat. Eyes: Negative for discharge. Respiratory: Negative for cough and shortness of breath. Cardiovascular: Negative for chest pain. Gastrointestinal: Negative for abdominal pain, diarrhea, nausea and vomiting. Genitourinary: Negative for dysuria. Musculoskeletal: Positive for arthralgias and joint swelling. Skin: Negative for rash and wound. Neurological: Negative for dizziness, weakness and numbness. Psychiatric/Behavioral: Negative for decreased concentration. The patient is not nervous/an xious. Objective: BP 148/70 | Pulse 67 | Temp 36.1 C (97 F) (Temporal) | Resp 20 | Wt 117.8 kg (259 l b 11.2 oz) | SpO2 96% | BMI 35.72 kg/m Physical Exam Constitutional: He is oriented to person, place, and time. He appears well-developed and we ll-nourished. HENT: Head: Normocephalic and atraumatic. Right Ear: External ear normal. Left Ear: External ear normal. Nose: Nose normal. Eyes: Conjunctivae are normal. Right eye exhibits no discharge. Left eye exhibits no discha rge. Neck: Normal range of motion. Cardiovascular: Normal rate and intact distal pulses. Pulmonary/Chest: Effort normal. No respiratory distress. Abdominal: He exhibits no distension. Neurological: He is alert and oriented to person, place, and time. Skin: Skin is warm and dry. Psychiatric: He has a normal mood and affect. Lateral hip Exam: Inspection: No gross deformity -TTP over ischial tuberosity and proximal hamstring (most predominantly over biceps femoris ) and over the posterior facet of greater trochanter on the left 5/5 Strength in hip flexion, extension, internal/external rotation Limited range of motion in bilateral hips with more prominent loss of internal rotation on the left and discomfort with resisted external rotation on the left. (-) CARLOS Test (+) FADIR Test (Equivocal) Trendelenburg Test Limited lumbar exam with significant stiffness status post fusion and prominent left SI ten derness to palpation. Negative straight leg raise. Radiology: Available imaging (MRI and fluoroscopic images; multiple) was personally reviewe d in the office today and is pertinent for mild degenerative changes of the hip and extensiv e postsurgical changes with multilevel degenerative disc disease. Please excuse any word selection errors, misspellings, or grammatical errors related to the use of voice recognition software. documented in this encounter Plan of Treatment + + +--------+ + + | Name | Type | Priori | Associated Diagnoses | Order Schedule | | | | ty | | | + + +--------+ + + | Sports Med Injection | Outpatient | Routin | Hamstring | Ordered: 02/08/2019 | | | Referral | e | tendinopathy of left | | | | | | thigh (proximal) | | + + +--------+ + + documented as of this encounter Visit Diagnoses + + | Diagnosis | + + | Hamstring tendinopathy of left thigh (proximal) - Primary | + + documented in this encounter
--- OUTSIDE RECORDS SUMMARY | ~2020-06-17 | XMS | Encounter Summary ---
Demographics + + + | Address | [address] | | | [place] [address] | + + + | Home Phone | | + + + | Preferred Language | Unknown | + + + | Marital Status | | + + + | Latter-Day Affiliation | 1013 | + + + | Race | White | + + + | Ethnic Group | Not or | + + + Author + + + | Author | [facility] | | | and [place] | + + + | Organization | [facility] [place] | | [...] [place] | | | | | [address] | | + + + + + | Mason Fleming | ECON | Unknown | | + + + + + Care Team Providers + +------+ + | Care Hotel Front Office Manager Name | Role | Phone | + +------+ + | Michael Grijalva | PCP | | | MD | | | + +------+ + Reason for Visit +--------+--------+ + | Reason | Onset | Comments | | | Date | | +--------+--------+ + | Other | 01/03/ | Xray order | | | 2019 | | +--------+--------+ + Encounter Details +--------+ + + + + | Date | Type | Department | Care Team | Description | +--------+ + + + + | 01/03/ | Telephone | [facility] | Efraín Turk, | Other (Xray order) | | 2019 | | [address]RY [address] | PA-C [address] | | | | | [address] | [address] [facility] | | | | | [place] | [place] [address] | | | | | [address] | [phone] | | | | | [phone] | | | +--------+ + + + [...] Miscellaneous Notes Telephone Encounter - Pepper Jimenez, Director Religious Education - 01/03/2019 4:08 PM PDTPatient n otified. P DTTelephone Encounter - Bella Britton - 01/03/2019 1:35 PM PDTPatient scheduled for tiffany laurent to discuss injections tomorrow. Patient has had a lot mid back pain as well as in both hips. Would like to know if Xrays prior to his appointment tomorrow would be beneficial. Pl ease advise documented in this encounter Plan of Treatment Not on filedocumented as of this encounter Visit Diagnoses Not on filedocumented in this encounter"
--- OUTSIDE RECORDS SUMMARY | ~2020-06-17 | XMS | Encounter Summary ---
Demographics + + + | Address | [address] | | | [place] [address] | + + + | Home Phone | | + + + | Preferred Language | Unknown | + + + | Marital Status | | + + + | Synagogue Affiliation | 1013 | + + + | Race | White | + + + | Ethnic Group | Not or | + + + Author + + + | Author | [facility] | | | and [place] | + + + | Organization | [facility] | | | [...] [place] | | | | | [address] | | + + + + + | Mason Fleming | ECON | Unknown | | + + + + + Care Team Providers + +------+ + | Care Middleware Solutions Architect Name | Role | Phone | + +------+ + | Michael Grijalva | PCP | | | MD | | | + +------+ + Encounter Details +--------+ + + + + | Date | Type | Department | Care Team | Description | +--------+ + + + + | 06/25/ | Orders Only | [facility] | Lyn, | Neuropathic pain | | 2013 | | [address] | [address] | (Primary Dx); | | | | [address] | [address] | Degenerative disc | | | | [place], [place] | [place] [address] | disease lumbar spine | | | | [address] | [phone] | - he has | | | | [phone] | | degenerative changes | | | [...] radiculopathy; | | | | | | PERIPHERAL | | | | | | NEUROPATHY | +--------+ + + + + Social [...] + | Diagnosis | + + | Neuropathic pain - Primary Neuralgia, neuritis, and radiculitis, unspecified | + + | Degenerative [...] or radiculitis, unspecified | + + | PERIPHERAL NEUROPATHY Unspecified hereditary and idiopathic peripheral neuropathy | + + documented in this encounter"
--- OUTSIDE RECORDS SUMMARY | ~2020-06-17 | XMS | Encounter Summary ---
Demographics + + + | Address | [address] | | | [place] [address] | + + + | Home Phone [...] | Author | [facility] [place] [...] [place] | | | | | [address] | | + + + + + | Mason Fleming | ECON | Unknown | | + + + + + Care Team Providers + +------+ + | Care Banquet Line Cook Name | Role | Phone | + +------+ + | Michael Grijalva | PCP | | | MD | | | + +------+ + Reason for Visit + + + | Reason | Comments | + + + | Follow-up | Same Day Injection: Left Intraarticular Hip/Left GT Bursa | + + + Encounter Details +--------+---------+ + + + | Date | Type | Department | Care Team | Description | +--------+---------+ + + + | 10/18/ | Office | [facility] | Efraín Turk, | Ischial bursitis of | | 2019 | Visit | [address]SIATRY [address] | PA-C [address] | left side (Primary | | | | [address] | [address] [place] | Dx); Ischial | | | | [place] | [place] [address] | bursitis of right | | | | [address] | [phone] | side; Right hip | | | | [phone] | | pain; S/P lumbar | | | | | | fusion | +--------+---------+ + + + Social History [...] + + + | Blood Pressure | 121/55 | 10/18/2018 11:13 AM | | | | | PST | | + + + + + | Pulse | 44 | 10/18/2018 11:13 AM | | | | | PST [...] Weight | 119.7 kg (264 lb) | 10/18/2018 11:13 AM | | | | | PST | | + + + + + | Height | 181.6 cm (5' 11.5") | 10/18/2018 11:13 AM | | | | | PST | | + + + + + | Body Mass Index | 36.31 | 10/18/2018 11:13 AM | | | | | PST | | + + + + + documented in this encounter Patient Instructions Patient Instructions Efraín Turk PA-C - 10/18/2018 11:47 AM Oscar will call to schedule you regarding right ischial tuberosity bursa injection. Bursitis You have bursitis. This is an inflammation of the bursa. These are small, fluid-filled sacs that surround the larger joints of the body. The bursa help the muscles and tendons move sm oothly over the joints. Bursitis often happens in the shoulder. But it can also affect the elbows, hips, pelvis, kn ees, toes, and heels. Bursitis can be caused by injury, overuse of the joint, or infection o f the bursa. Symptoms include pain and tenderness over a joint. Symptoms get worse with move ment. Bursitis is treated with an anti-inflammatory medicine and by resting the joint. More sever e cases require injection of medicine directly into the bursa. Home care Rest the painful joint and protect it from movement. This will allow the inflammation to heal faster. Apply an ice pack over the injured area forno more than 15 to20 minutes. Do this leticia ry3 to 6hoursfor the first24 to 48 hours. Keep using ice packs 3 to 4 times a day un til the pain and swelling improves. To make an ice pack, put ice cubes in a sealed plasticzip-lockbag. Wrap the bag in a clean, thintowel or cloth. Never put ice or an ice pack directly on the skin. As the ice melts, be careful to avoid getting any wrap or splint wet. You may ittcffrs-aef-ktppdbr pain medicine to treat pain and inflammation, unless anot her medicine was prescribed.Anti-inflammatory pain medicines may be more effective. Talk w ith your provider beforeusing these medicines if you have chronic liver or kidney disease, o r ever had a stomach ulcer or GI (gastrointestinal) bleeding. As your symptoms improve, slowly begin to move the joint. Do not overuse the joint. This may cause the symptoms to flare up again. When to seek medical advice Call your healthcare provider right away if any of these occur: Redness over the painful area Increasing pain or swelling at the joint Fever of 100.4F (38C) or above lasting for 24 to 48 hours Date Last Reviewed: 07/20/201519992537-1237 [employer]. [address] [place] [address]. All righ ts reserved. This information is not intended as a substitute for professional medical care. Always follow your healthcare professional's instructions. documented in this encounter Progress Notes Efraín Turk PA-C - 10/18/2018 11:20 AM PSTFormatting of this note might be different fro m the original. CHIEF COMPLAINT: Chief Complaint Patient presents with Follow-up Same Day Injection: Left Intraarticular Hip/Left GT Bursa HISTORY OF PRESENT ILLNESS: Piter Fleming is a 73 y.o. male being seen today in follow-up for complaints of low b ack pain/buttocks pain. He underwent a very extensive lumbar fusion in 2015. He underwent a left ischial tuberosity bursa injection and left intra-articular hip injection on 06/13/18 which she reports significant relief. He is here today for same-day injections into the ri ght hip and left ischial tuberosity. He also complains of tenderness to his right-sided but tock area. He continues to have pain in the region of the "sitting bones" with prolonged sitting, left > right. He is also experiencing left sided hip pain/groin pain. Today, Mr. Fleming rates his pain as 6 on a scale of 0-10. He indicates [...] HEMATOLOGIC/LYMPHATIC: No abnormal bleeding PHYSICAL EXAMINATION: Vitals: 10/18/18 1113 BP: 121/55 Pulse: (!) 44 PainSc: 4 PainLoc: Buttocks Body mass index is 36.31 kg/m. GENERAL: [...] has no apparent deficits with short or oil heaterman memory. He has appropriate fund of knowledge [...] Extensor Hallicus Longus 5 5 Ankle Dorsiflexion 3 5 Plantarflexion 5 5 MUSCULOSKELETAL Lumbar Spine: Straight leg raise and slump-sit are negative. Memo's man euver and impingement testing were positive for RIGHT groin pain. There was no tenderness to palpation over the greater trochanters or sacral sulci. The patient localized the majori ty of the pain to the bilateral ischial bursa, L>R. Lumbar facet loading was neg. Strength testing as above. There was no redness, effusion, warmth or joint line tenderness in the k nees or ankles. ASSESSMENT: 1. Ischial bursitis of left side 2. Ischial bursitis of right side 3. Right hip pain 4. S/P lumbar fusion PLAN: 1) Today we discussed the patient's [...] have been requested from patient's orthopedist in [place]. 4) The patient has had significant conservative care including medications (NSAIDS and narc otics), PT (multiple sessions over the years) and ostomy care nurse. Unfortunately Piter Richardson continues to have significant discomfort. It appears to me that the pain is prim arily coming from RIGHT hip and bilateral ischial tuberosity. Patient is scheduled for same day right intra-articular hip and left ischial bursa injec tion. He will return in 3+ weeks for right ischial bursa injection. Order placed today. 5) Patient will follow up with me as needed. 6) If current treatment plan is insufficient for symptom relief we could try right L5/S1 TF SHIRLEY as the next therapy option. I spent 30 minutes in visit with Piter Fleming today with the majority of time spent counselling the patient on his diagnosis, options for his care, and coordinating his care. ELECTRONICALLY EDITED AND SIGNED BY: Efraín Turk PA-C documented in this en counter Plan of Treatment Not on filedocumented as of this encounter Visit Diagnoses + + | Diagnosis | + + | Ischial bursitis of left side - Primary | + + | Ischial bursitis of right side | + + | Right hip pain Pain in joint, pelvic region and thigh | + + | S/P lumbar fusion Arthrodesis status | + + documented in this encounter
--- OUTSIDE RECORDS SUMMARY | ~2020-06-17 | XMS | Encounter Summary ---
Demographics + + + | Address | [address] | | | [place] [address] | + + + | Home Phone [...] Author + + + | Author | and [facility] | | | and [place] | + + + | Organization | [facility] | | | and [place] | + + + | Address | Unknown | + + + | Phone | Unavailable | + + + Support + + + + + | Name | Relationship | Address | Phone | + + + + + | bAy Fleming | ECON | [address] | | | | | [place] | | | | | [address] | | + + + + + | Mason Fleming | ECON | Unknown | | + + + + + Care Team Providers + +------+ + | Care Welding Machine Operator Friction Name | Role | Phone | + +------+ + PCP | Unavailable | + +------+ + Encounter Details +--------+ + + + + | Date | Type | Department | Care Team | Description | +--------+ + + + + | 05/12/ | Abstract | [place] [facility] | [facility] | | | 2011 | | Conversion Location | SR | | | | | [address] | | | | | | [place], [place] | | | | | | [address] | | | | | | [phone] | | | +--------+ + + + [...] + + + | Blood Pressure | 130/70 | 09/11/2010 12:00 AM | | | | | PST [...] + + + + | Weight | 112.5 kg (248 lb) | 12/17/2011 12:00 AM | | | | | PDT | | + + + + + | Height | 185.4 cm (6' 1") | 06/25/2010 12:00 AM | | | | | PDT | | + + + + + | Body Mass Index | 32.72 | 06/25/2010 12:00 AM | | | | | PDT | | + + + + + documented in this encounter Plan of Treatment Not on filedocumented as of this encounter Visit Diagnoses Not on filedocumented in this encounter
--- OUTSIDE RECORDS SUMMARY | ~2020-06-17 | XMS | Encounter Summary ---
Demographics + + + | Address | [address] | | | [place] [address] | + + + | Home Phone [...] + + + | Author | [facility] | | | and [place] | + + + | Organization | [facility] | | [...] [place] | | | | | [address] | | + + + + + | Mason Fleming | ECON | Unknown | | + + + + + Care Team Providers + +------+ + | Care Prenatal Genetic Counselor Name | Role | Phone | [...] Description | +--------+--------+ + + + | 10/23/ | Refill | [facility] | Lyn, | Medication Refill | | 2016 | | [address]SI[address] | [address] | | | | | [address] | [address] | | | | | [place] | [place] [address] | | | | | [address] | [phone] | | | | | [phone] | | | +--------+--------+ + + + [...]
--- OUTSIDE RECORDS SUMMARY | ~2020-06-17 | XMS | Encounter Summary ---
Demographics + + + | Address | [address] | | | [place] [address] | + + + | Home Phone | | + + + | Preferred Language | Unknown | + + + | Marital Status | | + + + | Religion Affiliation | 1013 | + + + | Race | White | + + + | Ethnic Group | Not or | + + + Author + + + | Author | [facility] | | | [...] [place] | | | | | [address] | | + + + + + | Mason Fleming | ECON | Unknown | | + + + + + Care Team Providers + +------+ + | Care Slot Floor Supervisor Name | Role | Phone | [...] | | | | scoliosis, | | [place], [place] | | | | | site | | [address] | | | | | unspecified | | Phone: | | | | | Other | | [phone] | | | | | secondary | | Fax: | | | | | scoliosis, | | [phone] | | | | | lumbar | | | | | | | region | | | | | | | [M41.56] | | | | | | | Procedures | | | | | | | CO | | | | | | | [...] + + | 08/10/ | Hospital | [facility] | Joshua Jorge MD | | | 2016 | Encounter | MED CTR XRAY [address] | [address] | | | | | [place] | [place] [address] | | | | | [place] [address] | [phone] | | | | | [phone] | | | +--------+ + + + [...] CHEVY COOK STATS NO | Routin | 08/10/2016 | | Results for this | | CHARGE | e | 5:55 PM | | procedure are in the | | | | PST | | results section. | + +--------+ + + + documented in this encounter Results CHEVY Lara Statkota No Charge (08/10/2016 5:55 PM PST) + [...]
--- OUTSIDE RECORDS SUMMARY | ~2020-06-17 | XMS | Encounter Summary ---
Demographics + + + | Address | [address] | | | [place] [address] | + + + | Home Phone | | + + + | Preferred Language | Unknown | + + + | Marital Status | | + + + | Sikhism Affiliation | 1013 | + + + | Race | White | + + + | Ethnic Group | Not or | + + + Author + + + | Author | [facility] | | [...] [place] | | | | | [address] | | + + + + + | Mason Fleming | ECON | Unknown | | + + + + + Care Team Providers + +------+ + | Care Exterior Interior Specialist Name | Role | Phone | [...] | Radiology | Diagnoses | Burke, | [facility] | | | | | Bursitis of | Efraín PA-C | [address] | | | | | other bursa | [address] | [place], | | | | | of left hip | [address] | [place] | | | | | Procedures | [address] | [address] | | | | | [place] Asp | [place], | Phone: | | | | | and/or Inj | [place] [address] | [phone] | | | | | Major Joint | Phone: | Fax: | | | | | Left | [phone] | [phone] | | | | | | Fax: | | | | | | | [phone] | | +--------+--------+ + + + + Diagnostic/Screening (Routine) +--------+--------+ + + + + | Status | Reason | Specialty | Diagnoses / | Referred By | Referred To | | | | | Procedures | Contact | Contact | +--------+--------+ + + + + | Closed | | Radiology | Diagnoses | Burke, | [facility] | | | | | Hip | MICHELLE Kenny | [address] | | | | | arthritis | [address] | [place], | | | | | Procedures | [address] | [place] | | | | | FL Asp | [address] | [address] | | | | | and/or Inj | [place], | Phone: | | | | | Major Joint | [place] [address] | [phone] | | | | | Right | Phone: | Fax: | | | | | | [phone] | [phone] | | | | | | Fax: | | | | | | | [phone] | | +--------+--------+ + + + + [...] [facility] | | | | | Bursitis of | [place], | [address] | | | | | other bursa | Peter Cunha MD | [place], | | | | | of left hip | [address] | [place] | | | | | Arthritis | [place] | [address] | | | | | of right hip | [place], [place] | Phone: | | | | | Procedures | [address] | [phone] | | | | | [place] | Phone: | Fax: | | | | | ARTHROCENTES | [phone] | [phone] | | | | | IS | Fax: | | | | | | ASPIR&/INJ | [phone] | | | | | | MAJOR | | | | | | | JT/BURSA W/O | | | | | | | [place] | | | | | | | TRIAMCINOLON | | | | | | | E ACET INJ | | | | | | | NOS, 10 MG | | | | | | | Right | | | | | | | Intraarticul | | | | | | | ar Hip and | | | | | | | Left BURSA | | | | | | | Injection | | | +--------+--------+ + + + + Encounter Details +--------+ + + + + | Date | Type | Department | Care Team | Description | +--------+ + + + + | 10/18/ | Hospital | [facility] | Efraín Turk, | Hip arthritis; | | 2019 | Encounter | MED CTR XRAY [address] | PA-C [address] | Bursitis of other | | | | [address] [place] | [address] [place] | bursa of left hip | | | | [place] [address] | [place] [address] | | | | | [phone] | [phone] | | | | | | | | | | | | [employer] [place] | | | | | | [...] +---------+ + + | Blood Pressure | 173/73 | 10/18/2018 12:33 PM | | | | | PST | | + +---------+ + + | Pulse | 57 | 10/18/2018 12:33 PM | | | | | PST [...] + | FL ASPIRATION | Routin | 10/18/2018 | Hip arthritis | Results for this | | INJECTION MAJOR | e | 12:30 PM | | procedure are in the | | JOINT RIGHT | | PST | | results section. | + +--------+ + + + | [place] ASPIRATION | Routin | 10/18/2018 | Bursitis of other | Results for this | | INJECTION MAJOR | e | 12:30 PM | bursa of left hip | procedure are in the | | JOINT LEFT | | PST | | results section. | + +--------+ + + + documented in this encounter Results FL Asp and/or Inj Major Joint Left (10/18/2018 12:30 PM PST) + + | Specimen | + + | | + + + + -+ | Narrative | Performed At | + + -+ | 10/18/2018 | [facility] | | Ischial Tuberosity [...] + FL Asp and/or Inj Major Joint Right (10/18/2018 12:30 PM PST) + + | Specimen | + + | | + + + + + | Narrative | Performed At | + + + | 10/18/2018 | [facility] | | RIGHT INTRAARTICULAR [...] + | Diagnosis | + + | Hip arthritis Unspecified arthropathy, pelvic region and thigh | + + | Bursitis of other bursa of left hip | + + documented in this encounter Administered Medications + +--------+ +-------+------+------+ | Medication Order | MAR | Action | Dose | Rate | Site | | | Action | Date | | | | + +--------+ +-------+------+------+ | iohexol (OMNIPAQUE 300) 300 | Given | 10/18/19 | 3 mLs | | | | mg/mL injection 3 mL 3 mL, | | 19 12:45 | | | | | Other, ONCE, 10/18/18 at 1300, | | PM PST | | | | | For 1 dose | | | | | | + +--------+ +-------+------+------+ +---+---+ | | | +---+---+ + +-------+ +-------+---+---+ | lidocaine (PF) 1% injection 2 | Given | 10/18/19 | 2 mLs | | | | mL 2 mL, Intra-articular, ONCE, | | 19 12:50 | | | | | 10/18/18 at 1300, For 1 dose | | PM PST | | | | + +-------+ +-------+---+---+ +---+---+ | | | +---+---+ + +-------+ +-------+---+ + | lidocaine buffered 0.9% | Given | 10/18/19 | 6 mLs | | Other | | injection 6 mL 6 mL, | | 19 12:40 | | | (Comment | | Intradermal, ONCE, 10/18/18 at | | PM PST | | | ) | | 1300, For 1 dose | | | | | | + +-------+ +-------+---+ + +---+---+ | | | +---+---+ + +-------+ +-------+---+---+ | triamcinolone acetonide | Given | 10/18/19 | 80 mg | | | | (KENALOG-40) 40 mg/mL injection | | 19 12:50 | | | | | 80 mg 80 mg, Intra-articular, | | PM PST | | | | | ONCE, e 10/18/18 at 1300, For 1 | | | | | | | dose, Shake well. Not for IV | | | | | | | use., | | | | | | + +-------+ +-------+---+---+ +---+---+ | | | +---+---+ documented in this encounter"
--- OUTSIDE RECORDS SUMMARY | ~2020-06-17 | XMS | Encounter Summary ---
Demographics + + + | Address | [address] | | | [place] [address] | + + + | Home Phone | | + + + | Preferred Language | Unknown | + + + | Marital Status | | + + + | Faith Affiliation | 1013 | + + + | Race | White | + + + | Ethnic Group | Not or | + + + Author + + + | Author | [facility] | | | and [...] [place] | | | | | [address] | | + + + + + | Mason Fleming | ECON | Unknown | | + + + + + Care Team Providers + +------+ + | Care Floor Finisher Helper Name | Role | Phone | [...] of | Efraín PA-C | [address] | | | | | other bursa | [address] | [place], | | | | | of left hip | [address] | [place] | | | | | Procedures | [address] | [address] | | | | | [place] Asp | [place], | Phone: | | | | | and/or Inj | [place] [address] | [phone] | | | | | Major Joint | Phone: | Fax: | | | | | Left | [phone] | [phone] | | | | | | Fax: | | | | | | | [phone] | | +--------+--------+ + + + + [...] Hip | MICHELLE Kenny | [address] | | | | | arthritis | [address] | [place], | | | | | Procedures | [address] | [place] | | | | | [place] Asp | [address] | [address] | | | | | and/or Inj | [place], | Phone: | | | | | Major Joint | [place] [address] | [phone] | | | | | Right | Phone: | Fax: | | | | | | [phone] | [phone] | | | | | | Fax: | | | | | | | [phone] | | +--------+--------+ + + + + Encounter Details +--------+ + + + + | Date | Type | Department | Care Team | Description | +--------+ + + + + | 09/12/ | Orders Only | [facility] [place] | Efraín Turk, | Hip arthritis | | 2019 | | PHYSIATRY [address] | PA-C [address] | (Primary Dx); | | | | [address] | [address] [place] | Bursitis of other | | | | [place], [place] | [place] [address] | bursa of left hip | | | | [address] | [phone] | | | | | [phone] | | | +--------+ + + + [...] + + | Performing | Address | [facility] | Phone Number | | [...] + + | Performing | Address | City[facility] | Phone Number | | Organization | | | | + +---------+ + + | [facility] | | | | + +---------+ + + documented in this encounter Visit Diagnoses + + | Diagnosis | + + | Hip arthritis - Primary Unspecified arthropathy, pelvic region and thigh | + + | Bursitis of other bursa of left hip | + + documented in this encounter"
--- OUTSIDE RECORDS SUMMARY | ~2020-06-17 | XMS | Encounter Summary ---
Demographics + + + | Address | [address] | | | [place] [address] | + + + | Home Phone [...] + + + | Author | [facility] | | | and [place] | + + + | Organization | [facility] | | | [...] [place] | | | | | [address] | | + + + + + | Mason Fleming | ECON | Unknown | | + + + + + Care Team Providers + +------+ + | Care Clinical Nurse Reviewer Name | Role | Phone | + +------+ + | Michael Grijalva | PCP | | | MD | | | + +------+ + Reason for Visit +---------+--------+ + | Reason | Onset | Comments | | | Date | | +---------+--------+ + | Results | 01/17/ | | | | 2019 | | +---------+--------+ + Encounter Details +--------+ + + + + | Date | Type | Department | Care Team | Description | +--------+ + + + + | 01/17/ | Telephone | [facility] | Efraín Turk, | Results | | 2018 | | PHYSIATRY [address] | PA-C [address] | | | | | [address] | [address] | | | | | [place], [place] | [place] [address] | | | | | [address] | [phone] | | | | | [phone] | | | +--------+ + + + [...] Notes Telephone Encounter - Luz Marina Hollingsworth Clinical Manager - 01/25/2019 11:45 AM PDTAttempte d to return patient's call per Ava's request. Patient did not answer so message was left requesting a call back. Electronically signed by Adrianna Little at 01/25 11:48 AM PDTTelephone Encounter - Luz Marina Hollingsworth Clinical Manager - 01/25/2019 9: 23 AM PDTCalled patient after speaking with Efraín, and explained to the patient that Dr. Haseeb brownlee while using ultrasound, can visualize the soft tissue where as Dr. Knox can see bone with fluoro. The patient verbalized understanding and stated he would be willing to try the inje ctions with Dr. Mckenzie to see if they yield a more successful, longer lasting result. Elec tronically signed by Adrianna Little at 01/25/2019 9:25 AM PDTTelephone Encounter - Luz Marina Hollingsworth, Clinical Manager - 01/25/2019 8:56 AM PDTPatient returned my call, and the results of his imaging were relayed and explained in detail. The patient verb alized understanding and would like to proceed with the suggested TFESI. The patient also in quired if I could ask Efraín if he needed to attend his visit with Dr. Brandon Mckenzie, as he w ould rather just continue having Dr. Haney administer his injections. I advised the pat ient I would discuss this with Efraín and get back to him this morning. We also discussed asher t I would send the summary of the imaging as described by Dr. Haney and Efraín via [employer] for review. The patient was grateful for this and was overall thankful for the informatio n he was provided. elephone Encounter - Luz Marina Hollingsworth, Clinical Manager - 01/24/2019 2:26 PM PDTAttempted to contact patient to run through the results of his MRI, as we previously dis cussed. The patient did not answer so a message was left requesting a call back to discuss. eleph one Encounter - Luz Marina Hollingsworth Clinical Manager - 01/24/2019 1:59 PM PDTFormatting of t his note might be different from the original. 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 DISH is very common in white males of his age and isn't always symptomatic. Treatment is supportive only (NSAIDs, heat, exercise/PT). D CE is calcification build up in the spine that connects the levels partially and can decrea se his range of motion. MRI shows mild disc bulge at T12/L1 with mild abutment to the left/posterior side of the sp inal cord. Nerve roots look good throughout. Tx options: bilat L1/2 TFESI if he is complaini ng of low back pain. Hip xray shows narrow right hip joint space and impingement. Tx options include continued r ight hip injection and if unsuccessful referral to hip surgeon for eval. Thanks, Efraín Routing Comment MD Efraín Mejias PA-C 6 days ago Yes, this looks like DISH. DISH is very common in white males of hs age and isn't always symptomatic. Treatment is supportive only (NSAIDs, heat, exercise/PT). Peter Machado Routing Comment elep sabrina Encounter - Luz Marina Hollingsworth, Clinical Manager - 01/18/2019 4:58 PM PDTAttempted to c ontact patient to let him know that we finally received the rest of his imaging and that Christiano koenig had begun to review it, but wanted to confer with Dr. Haney before giving a final re port on anything. The patient did not answer so a I left a message relaying this information , and that I likely would not have any new reports on his imaging until Wednesday, as Efraín is out tomorrow and Wednesday, as well as our office being closed for the holiday on Wednesday. I di d encourage the patient to return my call if he has any questions or concerns in the mean ti me. ERTe elder Encounter - Bella Britton - 01/17/2019 1:37 PM PDTPatient calling to advise isa richardson completed imaging at [place] last week. [facility] completed hip and thoracic images but also a back MRI that was not ordered by Efraín. Would like for Efraín to review all images when po ssible. I requested these images as of today to be pushed to [facility]. documented in this encounter Plan of Treatment Not on filedocumented as of this encounter Visit Diagnoses Not on filedocumented in this encounter"
--- OUTSIDE RECORDS SUMMARY | ~2020-06-17 | XMS | Encounter Summary ---
Demographics + + + | Address | [address] | | | [place] [address] | + + + | Home Phone | | + + + | Preferred Language | Unknown | + + + | Marital Status | | + + + | Confucianism Affiliation | 1013 | + + + | Race | White | + + + | Ethnic Group | Not or | + + + Author + + + | Author | [facility] | | [...] [place] | | | | | [address] | | + + + + + | Mason Fleming | ECON | Unknown | | + + + + + Care Team Providers + +------+ + | Care Buttonhole Maker Name | Role | Phone | [...] | | | | | Ischial | TANNER Kenny-C | | | | | | bursitis of | [address] | | | | | | left side | [address] | | | | | | Procedures | [address] | | | | | | [place] Asp | [place], | | | | | | and/or Inj | [place] [address] | | | | | | Major Joint | Phone: | | | | | | Left | [phone] | | | | | | | Fax: | | | | | | | [phone] | | +--------+--------+ + + + + Reason for Visit + + + | Reason | Comments | + + + | Follow-up | Same Day Injection | + + + Encounter Details +--------+---------+ + + + | Date | Type | Department | Care Team | Description | +--------+---------+ + + + | 06/13/ | Office | [facility] [place] | Efraín Turk, | Ischial bursitis of | | 2017 | Visit | PHYSIATRY [address] | PA-C [address] | left side (Primary | | | | [address] | [address] [place] | Dx); Bilateral hip | | | | [place], [place] | [place] [address] | joint arthritis | | | | [address] | [phone] | | | | | [phone] | | | +--------+---------+ + + + [...] + + + | Blood Pressure | 95/50 | 06/13/2018 11:08 AM | | | | | PDT | | + + + + + | Pulse | 76 | 06/13/2018 11:08 AM | | | | | [...] Weight | 119.7 kg (264 lb) | 06/13/2018 11:08 AM | | | | | PDT | | + + + + + | Height | 181.6 cm (5' 11.5") | 06/13/2018 11:08 AM | | | | | PDT | | + + + + + | Body Mass Index | 36.31 | 06/13/2018 11:08 AM | | | | | PDT | | + + + + + documented in this encounter Progress Notes Efraín Turk PA-C - 06/13/2018 11:20 AM PDTFormatting of this note might be different fro m the original. CHIEF COMPLAINT: Chief Complaint Patient presents with Follow-up Same Day Injection HISTORY OF PRESENT ILLNESS: Piter Fleming is a 73 y.o. male being seen today in follow-up for complaints of low b ack pain/buttocks pain. He underwent a very extensive lumbar fusion in 2015. He underwent a bilateral SI joint injection with Dr. Haney 10/06/2017 and then in 11/09/2017 he has bridget ateral ischial tuberosity steroid injections. Both injections did help. He continues to have pain in the [...] HEMATOLOGIC/LYMPHATIC: No abnormal bleeding PHYSICAL EXAMINATION: Vitals: 10/15/18 1108 BP: 95/50 Pulse: 76 PainSc: 3 PainLoc: Buttocks Body mass index is 36.31 [...] has no apparent deficits with short or care home memory. He has appropriate fund of knowledge [...] majori ty of the pain to the left ischial bursa and mild right L5/S1 region. Lumbar facet loading was neg. Strength testing as above. There was no redness, effusion, warmth or joint line t enderness in the knees or ankles. ASSESSMENT: 1. Ischial bursitis of left side 2. Bilateral hip joint arthritis PLAN: 1) Today we discussed the patient's [...] have been requested from patient's orthopedist in [place]. 4) The patient has had significant conservative care including medications (NSAIDS and narc otics), PT (multiple sessions over the years) and family day care worker. Unfortunately Piter Richardson continues to have significant discomfort. It appears to me that the pain is prim arily coming from RIGHT hip and left ischial tuberosity. I did feel that Piter Fleming would be a good candidate for interventional procedu res and I offered a left ischial tuberosity injection and a RIGHT intra-articular hip inject ion to be done. 5) Patient will follow up with me 3 weeks post injection to discuss any imaging and/or prog ress with today's treatment plan. 6) If current treatment plan is insufficient [...] side - Primary | + + | Bilateral hip joint arthritis | + + documented in this encounter
--- OUTSIDE RECORDS SUMMARY | ~2020-06-17 | XMS | Encounter Summary ---
Demographics + + + | Address | [address] | | | [place] [address] | + + + | Home Phone [...] + + + | Author | [facility] | | | and [place] | + + + | Organization | [facility] | | | [...] [place] | | | | | [address] | | + + + + + | Mason Fleming | ECON | Unknown | | + + + + + Care Team Providers + +------+ + | Care Food And Nutrition Professor Name | Role | Phone | + +------+ + | Michael Grijalva | PCP | | | MD | | | + +------+ + Reason for Visit +--------+ + | Reason | Comments | +--------+ + | Other | sleep results | +--------+ + Encounter Details +--------+---------+ + + + | Date | Type | Department | Care Team | Description | +--------+---------+ + + + | 02/19/ | Office | [facility] | Brooks Brown | BETTY (obstructive | | 2017 | Visit | SLEEP DISORDER [address] | MD [address] | sleep apnea) | | | | [address] [place] | [address] [place] | (Primary Dx) | | | | [place] [address] | [place] [address] | | | | | [phone] | [phone] | | | | | | | [...] + + + | Blood Pressure | 102/66 | 02/19/2017 9:50 AM | | | | | PDT | | + + + + + | Pulse | 40 | 02/19/2017 9:50 AM | | | | | PDT | | + + + + + | Temperature | - | - | | + + + + + | Respiratory Rate | 16 | 02/19/2017 9:50 AM | | | | | PDT | | + + + + + | Oxygen Saturation | 99% | 02/19/2017 9:50 AM | | | | | PDT | | + + + + + | Inhaled Oxygen | - | - | | | Concentration | | | | + + + + + | Weight | 116.5 kg (256 lb | 02/19/2017 9:50 AM | | | | 14.4 oz) | PDT | | + + + + + | Height | - | - | | + + + + + | Body Mass Index | 35.33 | 02/18/2017 11:08 AM | | | | | PDT | | + + + + + documented in this encounter Patient Instructions Patient Instructions Brooks Brown Jr., MD - 02/19/2017 10:06 AM PDTFormatting of this n ote might be different from the original. Continuous Positive Airway Pressure (CPAP) Your healthcare provider has prescribed continuous positive airway pressure (CPAP) therapy for you. A CPAPdevice helps you breathe better at night. The device sends air through your nose or mouth when you breathe in to keep your air passages open. CPAP is: Used most often to treat sleep apnea and some other problems. (Sleep apnea is a chronic condition with periods of sleep in which you briefly stop breathing.) Safe and very effective. But it takes time to get used to the mask. Your healthcare provider, nurse, or medical supplier will give you tips for wearing and car ing for your CPAP device. General guidelines Recommendations include the following: It's very important not togive up! It takes time to get used to wearing the mask at [facility]. Practice using your CPAP device during the day, especially whenever you take a nap. Remember, there are several different types of masks. If you can t get used to your ma sk, ask your provider or medical supply company about trying another style. If you have nasal stuffiness or dryness when using your CPAP device, talk with your prov ider or medical supply company. There are ways to ease these problems. For example, your pro vider may recommend using a moistening nasal spray. Or the medical supply company may recomm end a device with a humidifier. The goal is to use yourCPAP all night, every night, during all naps, and even when you travel. Keep your mask clean. Wash it with soap and water. Be sure to rinse the mask and tubing well with water to remove any soap. Let them air-dry completely before using. Make yourself comfortable when sleeping with CPAP. Try using extra pillows. Work with your medical supply company so that you know how to correctly use your CPAP. The company's auto claim representative will be able to help you: Use the CPAP correctly Troubleshoot any problems that come up Learn to clean and maintain the device Adjust to regular use of the CPAP The CPAP device settings are given as centimeters of water, or cm/H2O. Each person s pres sure settings are different. Your healthcare provider will tell you what settings to use. Ne mirian change your CPAP pressure setting unless your provider tells you to. CPAP cm/H20 pressure when you breathe in Date Last Reviewed: 12/29/201519996283-1530 [employer] [place] [address], [place] [address]. All righ ts reserved. This information is not intended as a substitute for professional medical care. Always follow your healthcare professional's instructions. documented in this encounter Progress Notes Brooks Brown Jr., MD - 02/19/2017 9:30 AM PDTThe patient comes in for follow-up after undergoing home sleep apnea testing. My interpretation of the patient's sleep study, which I have reviewed with the patient, is as follows: Unattended, Multiparameter, Sleep Apnea Test for Piter Fleming performed on February 18, 2017. Identifying Information: Piter Fleming is a 71 y.o. male who is referred for unattend ed, multi-parameter, sleep apnea test because of probable Obstructive Sleep Apnea. Technical Information: The study was performed on February 18, 2017 using the [employer] d equipment with [employer] Version 9 Software. [...] baseline using an oronasal thermal sensor, or an alternative apnea sensor and t he duration of the 90% or greater drop in sensor signal is greater than or equal to 10 secon ds. Obstructive Apnea: Event associated with continue d or increased inspiratory effort throughout the entire period of absent airflow. Central Apnea: Event associated with absent inspi ratory effort throughout the entire period of absent airflow. Because EEG is not monitored, Central Apneas cannot be scored with any degree of reliability on this type of sleep study. Mixed Apnea: Event associated with absent inspira tory effort in the initial portion of the event followed by resumption of inspiratory effort during the second portion of the event. Because EEG is not monitored, mixed apneas are not reliably scored on this type of study. Respiratory Event: The peak signal excursions drop by greater than or equal to 30% of pre-event baseline using a recommended or alternative airflow sensor and the duration of the >= 30% drop in signal excursion is greater than or equal to 10 seconds and there is a greater than or equal to a 4% oxygen desaturation from pre-event baseline. Respiratory Event Related Arousal: Because EEG is not recorded, Respir atory Event Related Arousal's cannot be enumerated. MOHINI [...] Treatment of Obstructive Sleep Apnea is advised. BP 102/66 | Pulse (!) 40 | Resp 16 | Wt 116.5 kg (256 lb 14.4 oz) | SpO2 99% | BMI 35. 33 kg/m A: BETTY: The patient continues to have clinically significant obstructive sleep apnea. We will proceed by giving him a new CPAP machine. I've discussed this with him in detail. He understands this. P: Resmed AirSense 10 autoset CPAP: 8-20cm is prescribed. Follow-up with me in 2-3 weeks. Today, 15 minutes was spent face to face with the patient; the majority of time was spent c selene regarding BETTY and CPAP therapy. documented in is encounter Plan of Treatment Not on filedocumented as of this encounter Visit Diagnoses + + | Diagnosis | + + | BETTY (obstructive sleep apnea) - Primary Obstructive sleep apnea (adult) (pediatric) | + + documented in this encounter"
--- OUTSIDE RECORDS SUMMARY | ~2020-06-17 | XMS | Encounter Summary ---
Demographics + + + | Address | [address] | | | [place] [address] | + + + | Home Phone | | + + + | Preferred Language | Unknown | + + + | Marital Status | | + + + | Restorationism Affiliation | 1013 | + + + | Race | White | + + + | Ethnic Group | Not or | + + + Author + + + | Author | [facility] | | | and [place] | + + + | Organization | [facility] | | | [...] [place] | | | | | [address] | | + + + + + | Mason Fleming | ECON | Unknown | | + + + + + Care Team Providers + +------+ + | Care Chart Clerk Name | Role | Phone | [...] | | | | | Ischial | Efraín PA-C | | | | | | bursitis of | [address] | | | | | | left side | [address] | | | | | | Ischial | [address] | | | | | | bursitis of | [place], | | | | | | right side | [place] [address] | | | | | | Procedures | Phone: | | | | | | FL Asp | [phone] | | | | | | and/or Inj | Fax: | | | | | | Major Joint | [phone] | | | | | | Right [...] | | | right side | [place] [address] | | | | | | Procedures | Phone: | | | | | | FL Asp | [phone] | | | | | | and/or Inj | Fax: | | | | | | Major Joint | [phone] | | | | | | Left [...] | Ischial | [place], | [address] | | | | | bursitis of | Peter Cunha MD | [place], | | | | | left side | [address] | [place] | | | | | Ischial | [place] | [address] | | | | | bursitis of | [place], [place] | Phone: | | | | | right side | [address] | [phone] | | | | | Procedures | Phone: | Fax: | | | | | MD | [phone] | [phone] | | | | | ARTHROCENTES | Fax: | | | | | | IS | [phone] | | | | | | ASPIR&/INJ | | | | | | | MAJOR | | | | | | | JT/BURSA W/O | | | | | | | US MD | | | | | | | [...] | | | | | ADD ON | | | | | | | Bilateral | | | | | | | Ischial | | | | | | | Tuberosity | | | | | | | *Same day on | | | | | | | 05/02/2020* | | | +--------+--------+ + + + + Encounter Details +--------+ + + + + | Date | Type | Department | Care Team | Description | +--------+ + + + + | 05/02/ | Hospital | [facility] | Efraín Turk, | Ischial bursitis of | | 2020 | Encounter | MED CTR XRAY [address] | PA-C [address] | left side; Ischial | | | | [address] [place] | [address] [place] | bursitis of right | | | | [place] [address] | [place] [address] | side | | | | [phone] | [phone] | | | | | | | | | | | | [employer], [facility] | | | | | | [...] + + + +---------+ + + | XARELTO 15 MG | Take 15 mg by mouth | | 0 | 02/22/20 | | | tablet | Daily . | | | 20 | | + + + +---------+ + [...] iohexol (OMNIPAQUE 300) 300 | Given | 05/02/20 | 4 mLs | | | | mg/mL injection 4 mL 4 mL, | | 20 1:33 | | | | | Intra-articular, ONCE, [facility] 05/02/20 | | PM PDT | | | | | at 1330, For 1 dose | | | | | | + +--------+ +-------+------+------+ +---+---+ | | | +---+---+ + +-------+ +-------+---+---+ | lidocaine 1% injection 2 mL 2 | Given | 05/02/20 | 2 mLs | | | | mL, Other, ONCE, [facility] 05/02/20 at | | 20 1:35 | | | | | 1330, For 1 dose | | PM PDT | | | | + +-------+ +-------+---+---+ +---+---+ | | | +---+---+ + +-------+ +-------+---+ + | lidocaine buffered 0.9% | Given | 05/02/20 | 6 mLs | | Other | | injection 6 mL 6 mL, | | 20 1:31 | | | (Comment | | Intradermal, ONCE, [facility] 05/02/20 at | | PM PDT | | | ) | | 1330, For 1 dose | | | | | | + +-------+ +-------+---+ + +---+---+ | | | +---+---+ + +-------+ +-------+---+---+ | triamcinolone acetonide | Given | 05/02/20 | 80 mg | | | | (KENALOG-40) 40 mg/mL injection | | 20 1:35 | | | | | 80 mg 80 mg, Intra-articular, | | PM PDT | | | | | ONCE, [facility] 05/02/20 at 1330, For 1 | | | | | | | dose, Shake well. Not for IV | | | | | | | use., | | | | | | + +-------+ +-------+---+---+ +---+---+ | | | +---+---+ documented in this encounter"
--- OUTSIDE RECORDS SUMMARY | ~2020-06-17 | XMS | Encounter Summary ---
Demographics + + + | Address | [address] | | | [place] [address] | + + + | Home Phone [...] + + + | Author | [facility] | | | and [place] | + + + | Organization | [facility] | | [...] [place] | | | | | [address] | | + + + + + | Mason Fleming | ECON | Unknown | | + + + + + Care Team Providers + +------+ + | Care Plc Controls Engineer Name | Role | Phone | + +------+ + | Michael Grijalva | PCP | | | MD | | | + +------+ + Encounter Details +--------+ + + + + | Date | Type | Department | Care Team | Description | +--------+ + + + + | 07/06/ | Hospital | [facility] | Joshua Jorge MD | Status post lumbar | | 2017 | Encounter | MED CTR XRAY [address] | [address] | spinal fusion | | | | [address] | [place] [address] | | | | | [place] [address] | [phone] | | | | | [phone] | | | +--------+ + + + [...] LUMBAR SPINE 2 OR | Routin | 07/06/2017 | Status post lumbar | Results for this | | 3 VW | e | 9:17 AM | spinal fusion | procedure are in the | | [...] + | Pj Oliver Results In - 07/06/2017 9:46 AM PST [...] S1.Dictated | | and Signed by: Dandy Sotleo MD Electronically signed: 07/06/2017 9:43 AM | [...] + | Status post lumbar spinal fusion Arthrodesis status | + + documented in this encounter"
--- OUTSIDE RECORDS SUMMARY | ~2020-06-17 | XMS | Encounter Summary ---
Demographics + + + | Address | [address] | | | [place] [address] | + + + | Home Phone | | + + + | Preferred Language | Unknown | + + + | Marital Status | | + + + | Mormonism Affiliation | 1013 | + + + | Race | White | + + + | Ethnic Group | Not or | + + + Author + + + | Author | [facility] | | | and [place] | + + + | Organization | [facility] | | | and [...] [place] | | | | | [address] | | + + + + + | Mason Fleming | ECON | Unknown | | + + + + + Care Team Providers + +------+ + | Care Drinking Water Technician Name | Role | Phone | [...] | Lumbar | [place], | [address] | | | | | radiculopath | Peter Cunha MD | [place], | | | | | y | [address] | [place] | | | | | Procedures | [place] | [address] | | | | | MS INJECT | [place], [place] | Phone: | | | | | ANES/STEROID | [address] | [phone] | | | | | FORAMEN | Phone: | Fax: | | | | | LUMBAR/SACRA | [phone] | [phone] | | | | | L W IMG | Fax: | | | | | | GUIDE ,1 | [phone] | | | | | | LEVEL MS | | | | | | | TRIAMCINOLON | | | | | | | E ACET INJ | | | | | | | NOS, 10 MG | | | | | | | Appt 09/22- | | | | | | | bilat L5-S1 | | | | | | | TFESI | | | +--------+--------+ + + + + Encounter Details +--------+ + + + + | Date | Type | Department | Care Team | Description | +--------+ + + + + | 09/22/ | Hospital | [facility] | Ana Cristina Tiwari | Lumbar radiculopathy | | 2018 | Encounter | MED CTR XRAY [address] | MICHELLE Campbell [address] | | | | | [address] [place] | [facility] | | | | | [place] [address] | [address] [place] | | | | | [phone] | [id number] | | | | | | | | | | | | [employer] ManagerOlivier | | | | | | [place] [...] | FL EPIDURAL STEROID | Routin | 09/22/2017 | Lumbar | Results for this | | INJECTION LUMBAR | e | 1:53 PM | radiculopathy | procedure are in the | | TRANSFORAMINAL | | PST | | results section. | + +--------+ + + + documented in this encounter Results FL SHIRLEY Lumbar Transforaminal (09/22/2017 1:53 PM [...] dexamethasone (PF) 10 mg/mL | Given | 09/22/19 | 15 mg | | | | injection 15 mg 15 mg, Other, | | 18 2:10 | | | | | ONCE, 09/22/17 at 1400, For 1 | | PM PST | | | | | dose | | | | | | + +--------+ +-------+------+------+ +---+---+ | | | +---+---+ + +-------+ +-------+---+---+ | iohexol (OMNIPAQUE 300) 300 | Given | 09/22/19 | 4 mLs | | | | mg/mL injection 4 mL 4 mL, | | 18 2:05 | | | | | Other, ONCE, 09/22/17 at 1400, | | PM PST | | | | | For 1 dose | | | | | | + +-------+ +-------+---+---+ +---+---+ | | | +---+---+ + +-------+ +-------+---+---+ | lidocaine (PF) 1% injection 2 | Given | 09/22/19 | 2 mLs | | | | mL 2 mL, Other, ONCE, Wed | | 18 2:10 | | | | | 09/22/17 at 1400, For 1 dose | | PM PST | | | | + +-------+ +-------+---+---+ +---+---+ | | | +---+---+ + +-------+ +--------+---+ + | lidocaine buffered 1% injection | Given | 09/22/19 | 10 mLs | | Other | | 10 mL 10 mL, Intradermal, ONCE, | | 18 2:00 | | | (Comment | | 09/22/17 at 1400, For 1 dose | | PM PST | | | ) | + +-------+ +--------+---+ + +---+---+ | | | +---+---+ documented in this encounter"
--- OUTSIDE RECORDS SUMMARY | ~2020-06-17 | XMS | Encounter Summary ---
Demographics + + + | Address | [address] | | | [place] [address] | + + + | Home Phone [...] + + + | Author | [facility] | | | and [place] | + + + | Organization | 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, | | | | | | Ischial | Ana Cristina | | | | | | bursitis of | MICHELLE Campbell | | | | | | right side | [address] | | | | | | Procedures | [address] | | | | | | [place] Asp | [address] | | | | | | and/or Inj | [address] | | | | | | Major Joint | [place], | | | | | | Right | [place] [address] | | | | | | | Phone: | | | | | | | [phone] | | | | | | | Fax: | | | | | | | [phone] | | +--------+--------+ + + + + Diagnostic/Screening (Routine) +--------+--------+ + + + + | Status | Reason | Specialty | Diagnoses / | Referred By | Referred To | | | | | Procedures | Contact | Contact | +--------+--------+ + + + + | Closed | | Radiology | Diagnoses | 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, | | | | | | Ischial [...] | | | | | Left | [place] [address] | | | | | | | Phone: | | | | | | | [phone] | | | | | | | Fax: | | | | | | | [phone] | | +--------+--------+ + + + + Reason for Visit + + + | Reason | Comments | + + + | Follow-up | Discuss hip pain | + + + Follow Up (Routine) [...] | tendonitis | [address] [place] | | | | | of right | [address] | [place], [place] | | | | | buttock | [place], | [address] Phone: | | | | | Ischial | [place] | [phone] | | | | | bursitis of | [address] | Fax: | | | | | left side | Phone: | [phone] | | | | | Thoracic | [phone] | | | | | | spine pain | Fax: | | | | | | Right hip | [phone] | | | | | | pain [...] Description | +--------+---------+ + + + | 11/01/ | Office | [facility] [place] | Ana Cristina Tiwari | Ischial bursitis of | | 2019 | Visit | PHYSIATRY [address] | MICHELLE Campbell [address] | right side (Primary | | | | [address] | Dx); Ischial | | | | [place], [place] | [address] [place] | bursitis of left | | | | [address] | [address] | side; Lumbar | | | | [phone] | | radiculopathy; S/P | | | | | | lumbar fusion; | | | | | | Sacroiliitis, not | | | | | | elsewhere classified | | | | | | [facility] | +--------+---------+ + + + Social History [...] + + + | Blood Pressure | 103/47 | 11/02/2019 10:45 AM | | | | | PST | | + + + + + | Pulse | 52 | 11/02/2019 10:45 AM | | | | | PST | | + + + + + | Temperature | - | - | | + + + + + | Respiratory Rate | 14 | 11/02/2019 10:45 AM | | | | | PST | | + + + + + | Oxygen Saturation | - | - | | + + + + + | Inhaled Oxygen | - | - | | | Concentration | | | | + + + + + | Weight | 117.9 kg (260 lb) | 11/02/2019 10:45 AM | | | | | PST | | + + + + + | Height | 185.4 cm (6' 1") | 11/02/2019 10:45 AM | | | | | PST | | + + + + + | Body Mass Index | 34.3 | 11/02/2019 10:45 AM | | | | | PST | | + + + + + documented in this encounter Patient Instructions Patient Instructions Ana Cristina Tiwari PA-C - 11/02/2019 11:00 AM PSTPlease plan on 08 28 check-in for left and right side ischio bursa injection. Please call back if you would like your right SI joint injected and I will place this order for a future date.i Follow-up at the hospital thirty minutes before [...] of the procedure you must provide a caterpillar driver to take you home. For all procedur es it is recommended that someone else drive you home. documented in this encounter Progress Notes Ana Cristina Tiwari PA-C - 11/02/2019 11:00 AM PSTFormatting of this note might be diffe rent from the original. Afsaneh Tiwari PA-C [address] [facility], [address] [place] [address] FAX: CHIEF COMPLAINT: Chief Complaint Patient presents with Follow-up Discuss hip pain HISTORY OF PRESENT ILLNESS: Piter Fleming is a 74 y.o. male being seen today in follow-up for complaints of low b ack pain. Patient has hx of L1-S1 fusion. The patient has been seen for this complaint in past. Previously it was recommended that he have ischial bursa injection that were done o n 08/03/19.he did report significant relief from this injection and would like them repeated today. Since he was last seen the patient also had right hip replacement with Dr. Seaman August 2019. Patient has had several SI injections, trochanteric bursa injections. Patient was pr eviously offered the consideration of spinal cord stimulator and referral to neuropsych was placed. The patient reports that he was in the process of being evaluated for hip replaceme nt and felt like spinal cord stimulation was not as urgent. At this point he is still preoc cupied with other medical issues including tremors that will be evaluated at [facility] in the kyrie r future. He would like to put spinal cord stimulation on the [...] No current facility-administered medications for this visit. Facility-Administered Medications Ordered in Other Visits Medication Dose Route Frequency Provider Last Rate Last Dose iohexol (OMNIPAQUE 300) 300 mg/mL injection 4 mL 4 mL Intra-articular Once Ana Cristina Castro PA-C lidocaine (PF) 1% injection 2 mL 2 mL Intra-articular Once Ana Cristina Tiwari PA-C lidocaine buffered 0.9% injection 6 mL 6 mL Intradermal Once SALTY Cote triamcinolone acetonide (KENALOG-40) 40 mg/mL injection 80 mg 80 mg Intra-articular On ce Ana Cristina Tiwari PA-C ALLERGIES: Allergies Allergen Reactions Latex Rash Elastic [...] Last attempt to quit: 08/30/1980 Years since quittin.2 Smokeless tobacco: Never Used Substance and Sexual Activity Alcohol use: Yes Alcohol/week: 0.0 standard drinks Comment: Rarely/Socially Drug use: No Sexual activity: Yes Comment: Rarely Lifestyle Physical activity: Days per week: Not on file Minutes per session: Not on file Stress: Not on file Relationships Social connections: Talks on phone: Not on file Gets together: Not on file Attends muslim service: Not on file Active member of [...] weakness and headaches. PHYSICAL EXAMINATION: Blood pressure 103/47, pulse 52, resp. rate 14, height 1.854 m (6' 1"), weight 117.9 kg (26 0 lb). Body mass index is 34.3 kg/m. [...] has no apparent deficits with short or termite control representative memory. The cranial nerves appear grossly intact. Sensory exam does show diminished sensation to light touch in the leg(s). MUSCULOSKELETAL : Straight leg raise and slump-sit are negative. There was no tenderness to palpation over the greater trochanters. Patient does have fo uyen tenderness of her right SI joint and bilateral ischial bursa. The patient localized the majority [...] Encounter Diagnoses Name Primary? 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 Unfortunately Piter Richardson continues to have significant discomfort. It appears to me that the pain is prim arily coming from sacroiliitis is a motion segment below his L1-S1 fusion and initial bursit is recurrence. I did feel that Piter Fleming would be a good candidate for SCS trial however [facility] right now with a recent right hip replacement with Dr. Seaman and a [facility] referral for tremors that he would like to complete before considering SCS. 5) I did feel patient would be a good candidate for an interventional procedure and have or dered bilateral ischio bursa injection to be done today. He may also benefit in the future from right SI joint injection. He will call back if he would like to have this scheduled. 6) If current treatment plan is insufficient for symptom relief we could try spinal cord st imulator as the next therapy option. 7) hip: patient will continue to follow up with ortho regarding right hip surgery. I spent 20 minutes in visit with Piter Fleming today with the majority of time spent counselling the patient on his diagnosis, options for his care, and coordinating his care. ELECTRONICALLY SIGNED BY: Afsaneh Tiwari PA-C, 11/02/2019 documented in this encounter Plan of Treatment Not on filedocumented as of this encounter Results FL Asp and/or Inj Major Joint Right (11/02/2019 11:26 AM PST) + + | Specimen | + + | | + + + + + | Narrative | Performed At | + + + | | [facility] | | 11/02/2019 Bilateral Ischial Tuberosity Bursa Injections Diagnosis: | [...] FL Asp and/or Inj Major Joint Left (11/02/2019 11:26 AM PST) + + | Specimen | + + | | + + + + + | Narrative | Performed At | + + + | | [facility] | | 11/02/2019 Bilateral Ischial Tuberosity Bursa Injections Diagnosis: | [...] + + | Performing | Address | City/State[facility] | Phone Number | | Organization | | | | + +---------+ + + | [facility] | | | | + +---------+ + + documented in this encounter Visit Diagnoses + + | Diagnosis | + + | Ischial bursitis of right side - Primary | + + | Ischial bursitis of left side | + + | Lumbar radiculopathy Thoracic or lumbosacral neuritis or radiculitis, unspecified | + + | S/P lumbar fusion Arthrodesis status | + + | Sacroiliitis, not elsewhere classified (HCC) Sacroiliitis, not elsewhere classified | + + documented in this encounter
--- OUTSIDE RECORDS SUMMARY | ~2020-06-17 | XMS | Encounter Summary ---
Demographics + + + | Address | [address] | | | [place] [address] | + + + | Home Phone [...] Author | [facility] | | | and [...] [place] | | | | | [address] | | + + + + + | Mason Fleming | ECON | Unknown | | + + + + + Care Team Providers + +------+ + | Care Contact Lens Molder Name | Role | Phone | + +------+ + | Michael Grijalva | PCP | | | MD | | | + +------+ + Encounter Details +--------+ + + + + | Date | Type | Department | Care Team | Description | +--------+ + + + + | 08/06/ | Hospital | [facility] | Joshua Jorge MD | Lumbar | | 2016 | Encounter | MED CTR XRAY [address] | [address] | radiculopathy; | | | | [place] | [place] [address] | Spinal stenosis, | | | | [place] [address] | [phone] | lumbar region, with | | | | [phone] | | neurogenic | | | | | Scooby Mckinnon MD | claudication; | | | | | [address] [facility] | 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 | [place] | [phone] | | [facility] | | [address] | | | - IMAGING | | [...]
--- OUTSIDE RECORDS SUMMARY | ~2020-06-17 | XMS | Encounter Summary ---
Demographics + + + | Address | [address] | | | [place] [address] | + + + | Home Phone [...] + + | Author | [facility] | | | and [place] | + + + | Organization | [facility] | | | [...] [place] | | | | | [address] | | + + + + + | Mason Fleming | ECON | Unknown | | + + + + + Care Team Providers + +------+ + | Care Console Assembler Name | Role | Phone | + +------+ + | Michael Grijalva | PCP | | | MD | | | + +------+ + Reason for Visit + + + | Reason | Comments | + + + | CPAP Follow Up | | + + + Encounter Details +--------+---------+ + + + | Date | Type | Department | Care Team | Description | +--------+---------+ + + + | 03/31/ | Office | [facility] | Brooks Brown | BETTY (obstructive | | 2017 | Visit | SLEEP DISORDER [address] | MD [address] | sleep apnea) | | | | [address] [place] | [address] [place] | (Primary Dx) | | | | [place] [address] | [place] [address] | | | | | [phone] | [phone] | | | | | | | [...] + + + | Blood Pressure | 122/68 | 03/31/2017 10:34 AM | | | | | PDT | | + + + + + | Pulse | 57 | 03/31/2017 10:34 AM | | | | | PDT | | + + + + + | Temperature | - | - | | + + + + + | Respiratory Rate | 16 | 03/31/2017 10:34 AM | | | | | PDT | | + + + + + | Oxygen Saturation | 98% | 03/31/2017 10:34 AM | | | | | PDT | | + + + + + | Inhaled Oxygen | - | - | | | Concentration | | | | + + + + + | Weight | 121 kg (266 lb 11.2 | 03/31/2017 10:34 AM | | | | oz) | PDT | | + + + + + | Height | - | - | | + + + + + | Body Mass Index | 36.68 | 02/18/2017 11:08 AM | | | | | PDT | | + + + + + documented in this encounter Progress Notes Brooks Brown Jr., MD - 03/31/2017 10:00 AM PDTThe patient comes in for f/u on BETTY treat ed with CPAP. The patient was found to have an AHI (MOHINI) of 12 with a kitty oxygen saturatio n of 86% on home sleep apnea test (type III done on February 18, 2017 at [facility]. The patient is on a Resmed AirSense 10 AutoSet CPAP which is set at 8-20 cm of pressure. The patient has wo rn this for 40 days out of the last 14 days and the patient averages 10 hours and 11 minutes of use per day. The median pressure is 8.4 cm; the 95th percentile pressure is 10.1 cm; and the maximum pressure is 11.3. The calculated AHI is 0.5. The patient is having no technical issues with his CPAP. He has sleeping well at night. H e is feeling alert in the daytime. His apneas well controlled. He is very adherent with erapy and is very happy with the way he feels. BP 122/68 | Pulse 57 | Resp 16 | Wt 121 kg (266 lb 11.2 oz) | SpO2 98% | BMI 36.68 kg/ m A: BETTY: The patient is doing well clinically. He is very adherent with therapy. His apnea s well controlled. P: No change in current CPAP prescription. Follow-up in one year. Today, 15 minutes was spent face to face with the patient; the majority of time was spent c donseling regarding BETTY and CPAP therapy. documented in is encounter Plan of Treatment Not on filedocumented as of this encounter Visit Diagnoses + + | Diagnosis | + + | BETTY (obstructive sleep apnea) - Primary Obstructive sleep apnea (adult) (pediatric) | + + documented in this encounter"
--- OUTSIDE RECORDS SUMMARY | ~2020-06-17 | XMS | Encounter Summary ---
Demographics + + + | Address | [address] | | | [place] [address] | + + + | Home Phone [...] | Author | [facility] | | | and [...] [place] | | | | | [address] | | + + + + + | Mason Fleming | ECON | Unknown | | + + + + + Care Team Providers + +------+ + | Care Electromedical Service Engineer Name | Role | Phone | [...] Closed | | Radiology | Diagnoses | [place], | | | | | | Ischial [...] | | | | | Left | [place] [address] | | | | | | | Phone: | | | | | | | [phone] | | | | | | | Fax: | | | | | | | [phone] | | +--------+--------+ + + + + [...] [facility] | | | | | Bursitis, | [place], | [address] | | | | | ischial, | Peter Cunha MD | [place], | | | | | right | [address] | [place] | | | | | Bursitis, | [place] | [address] | | | | | ischial, | [place] | Phone: | | | | | left | [address] | [phone] | | | | | Procedures | Phone: | Fax: | | | | | [place] | [phone] | [phone] | | | | | ARTHROCENTES | Fax: | | | | | | [place] | [phone] | | | | | | ASPIR&/INJ | | | | | | | MAJOR | | | | | | | JT/BURSA W/O | | | | | | | US OR | | | | | | | TRIAMCINOLON | | | | | | | E ACET INJ | | | | | | | NOS, 10 MG | | | | | | | SAME DAY | | | | | | | APPT 01/30 | | | | | | | Bilateral | | | | | | | ischial | | | | | | | tuberosity | | | +--------+--------+ + + + + Encounter Details +--------+ + + + + | Date | Type | Department | Care Team | Description | +--------+ + + + + | 01/30/ | Hospital | [facility] | Ana Cristina Tiwari | Ischial bursitis of | | 2020 | Encounter | MED CTR XRAY [address] | MICHELLE Campbell [address] | left side | | | | [place] | [facility] | | | | | [place] [address] | [address] [place] | | | | | [phone] | [address] | | | | | | | | | | | | Data ReviewerOlivier | | | | | | [place] [...] +---------+ + + | Blood Pressure | 142/59 | 01/31/2020 12:39 PM | | | | | PDT | | + +---------+ + + | Pulse | 51 | 01/31/2020 12:39 PM | | | | | PDT [...] + | FL ASPIRATION | Routin | 01/31/2020 | Ischial bursitis | Results for this | | INJECTION MAJOR | e | 12:40 PM | of left side | procedure [...] iohexol (OMNIPAQUE 300) 300 | Given | 01/31/20 | 3 mLs | | | | mg/mL injection 3 mL 3 mL, | | 20 12:44 | | | | | Intra-articular, ONCE, 01/31/20 | | PM PDT | | | | | at 1300, For 1 dose | | | | | | + +--------+ +-------+------+------+ +---+---+ | | | +---+---+ + +-------+ +-------+---+---+ | lidocaine (PF) 1% injection 2 | Given | 01/31/20 | 2 mLs | | | | mL 2 mL, Intra-articular, ONCE, | | 20 12:47 | | | | | 01/31/20 at 1300, For 1 dose | | PM PDT | | | | + +-------+ +-------+---+---+ +---+---+ | | | +---+---+ + +-------+ +-------+---+ + | lidocaine buffered 0.9% | Given | 01/31/20 | 3 mLs | | Other | | injection 3 mL 3 mL, | | 20 12:41 | | | (Comment | | Intradermal, ONCE, Wed01/31/20 at | | PM PDT | | | ) | | 1300, For 1 dose | | | | | | + +-------+ +-------+---+ + +---+---+ | | | +---+---+ + +-------+ +-------+---+---+ | triamcinolone acetonide | Given | 01/31/20 | 40 mg | | | | (KENALOG-40) 40 mg/mL injection | | 20 12:46 | | | | | 40 mg 40 mg, Intra-articular, | | PM PDT | | | | | ONCE, Wed01/31/20 at 1300, For 1 | | | | | | | dose, Shake well. Not for IV | | | | | | | use., | | | | | | + +-------+ +-------+---+---+ +---+---+ | | | +---+---+ documented in this encounter"
--- OUTSIDE RECORDS SUMMARY | ~2020-06-17 | XMS | Encounter Summary ---
Demographics + + + | Address | [address] | | | [place] [address] | + + + | Home Phone [...] | Author | [facility] | | | and [place] | [...] [place] | | | | | [address] | | + + + + + | Mason Fleming | ECON | Unknown | | + + + + + Care Team Providers + +------+ + | Care Laborer Adjustable Steel Joist Name | Role | Phone | + [...] | | | [address] [place] | [place] [address] | | | | | [place] [address] | | | | | | [phone] | | | +--------+ + + + [...] + +--------+ + + + | XR THORACIC SPINE 2 | Routin | 01/11/2019 | | Results for this | | VW | e | 12:05 AM | | procedure are in the | | | | PDT | | results section. | + +--------+ + + + documented in this encounter Results XR Thoracic Spine 2 Vw (01/11/2019 12:05 AM PDT) + + | Specimen | [...]
--- OUTSIDE RECORDS SUMMARY | ~2020-06-17 | XMS | Encounter Summary ---
Demographics + + + | Address | [address] | | | [place] [address] | + + + | Home Phone [...] | Author | [facility] | | | and [place] [...] [place] | | | | | [address] | | + + + + + | Mason Fleming | ECON | Unknown | | + + + + + Care Team Providers + +------+ + | Care Neurosurgery Physician Name | Role | Phone | + +------+ + | Michael Grijalva | PCP | | | MD | | | + +------+ + Reason for Visit +--------+--------+ + | Reason | Onset | Comments | | | Date | | +--------+--------+ + | Other | 05/07/ | | | | 2015 | | +--------+--------+ + Encounter Details +--------+ + + + + | Date | Type | Department | Care Team | Description | +--------+ + + + + | 05/07/ | Telephone | [facility] | Lyn, | Other | | 2014 | | PHYSIATRY [address] | MICHELLE Masterson [address] | | | | | [address] | [address] | | | | | [place] | [place] [address] | | | | | [address] | [phone] | | | | | [phone] | | | +--------+ + + + [...] this encounter Miscellaneous Notes Telephone Encounter - Aleja Nicholson PA-C - 05/07/2015 3:08 PM PDTSent to [facility] elephone E ncounter - Autumn Sam - 05/07/2015 2:04 PM PDTPatient is requesting a 90 da y supply. eleph one Encounter - Autumn Sam - 05/07/2015 1:57 PM PDTPatient called today mahad blas he requested a refill of Gabapentin and his pharmacy told him It was denied because we sent it back saying we did not know the patient. He says he had previously stopped taking it , but at his last visit 02/07 Aleja told him to resume it. [facility] he [facility] and leaves town tomorrow am. He is requesting we contact him when compl ete. documented in this encounter Plan of Treatment Not on filedocumented as of this encounter Visit Diagnoses + + | Diagnosis | + + | Neuropathic pain - Primary Neuralgia, neuritis, and radiculitis, unspecified | + + documented in this encounter"
--- OUTSIDE RECORDS SUMMARY | ~2020-06-17 | XMS | Encounter Summary ---
Demographics + + + | Address | [address] | | | [place] [address] | + + + | Home Phone | | + + + | Preferred Language | Unknown | + + + | Marital Status | | + + + | Yarsanism Affiliation | CAT | + + + | Race | Unknown | + + + | Ethnic Group | Other Race | + + + Author + + + | Author | [facility] | + + + | Organization | [facility] | + + + | Address | Unknown | + + + | Phone | Unavailable | + + + Support +---------+ +---------+ + | Name | Relationship | Address | Phone | +---------+ +---------+ + | Unk Unk | ECON | Unknown | Unavailable | +---------+ +---------+ + Care Team Providers + +------+ + | Care Drama Therapist Name | Role | Phone | + +------+ + | Unknown | PCP | Unavailable | + +------+ + Reason for Visit + + + | Reason | Comments | + + + | New patient | | | consultation | | + + + Intake Referral (Routine) + +--------+ + + + + | Status | Reason | Specialty | Diagnoses / | Referred By | Referred To | | | | | Procedures | Contact | Contact | + +--------+ + + + + | New Request | | Neurology | Diagnoses | Pil[place], | [facility] | | | | | Essential | Michael Esteban, | Disorder Chh1 | | | | | tremor | MD | [address] | | | | | | [place] | [address] [place] | | | | | | [facility]ILY | for Health | | | | | | MEDICINE | and Healing, | | | | | | [address] | [address] | [address]th Floor | | | | | | [place], | [place], [place] | | | | | | [place] [address] | [address] | | | | | | Phone: | Phone: | | | | | | [phone] | [phone] | | | | | | Fax: | Fax: | | | | | | [phone] | [phone] | + +--------+ + + + + Encounter Details +--------+ + + + + | Date | Type | Department | Care Team | Description | +--------+ + + + + | 03/19/ | Video/TeleH | Neurology Movement | Ines Mensah S, | New patient | | 2020 | ealth-Sched | Disorders Clinic at | [address] | consultation | | | uled | [facility] | [address] [place], | | | | | and Healing [address] | [place] [address] | | | | | [address] [place] [facility] | [phone] | | | | | Health and Healing, | | | | | | Building [address], [address]th | | | | | | Floor [facility] [place] | | | | | | [address] | | | | | | [phone] | | | +--------+ + + + [...] documented as of this encounter Progress Notes Ines Mensah MD - 03/19/2020 1:20 PM PDTFormatting of this note might be different fr om the original. [facility] Movement Disorders Clinic New Patient - Virtual Visit Today's Date: 03/19/2020 1:43 PM 2:33 PM The visit took place via secure, synchronous audio and video technology with the provider v irtually located at the distant site of [facility]. The patient stated they were located at the [facility] site of home and were in the state of [place] at the time of the virtual visit. The n tamy of all additional persons participating in the virtual visit and their roles are: Aby (). I have spent a total of 62 minutes on this patient's care today. This time includes the vi rtual visit flck-bi-ublr time with the patient (50 min) as well as time spent reviewing virgen ent records, coordinating/communicating with care teams and documenting the patient visit (1 2 min). HPI: Piter ("Hap") Roselia Fleming is a 74 y.o. right handed man with LBP s/p fusion c/b foot akua p (R), PE on Xarelto who presents for initial evaluation of tremor. He was referred by Dr. Michael Grijalva. Mr. Fleming reports that he has had tremors since high school. The tremor began in both barry ds equally. Over the years, he has noted that his tremors have worsened and now involves hi s head as well. 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 He uses heavy utensils and has modified what he eats to avoid using utensils. He uses a water bottle with a straw . He states that he can't write anymore though has found that putting pressure down or hold ing his hand in a specific way can help. 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 He does not notice tremor at rest. The tremor does build up when he is nervo us or anxious. He does drink a lot of Diet Coke (he can drink up to 12 cans per day). In M arch he stopped drinking alcohol altogether. He definitely saw improvement in his tremor wi th alcohol. His mother has tremors also (99 yo). He does have chronic pain related to LBP and bursitis and sees a psychiatrist, Dr. Ervin, in a Pain Clinic. His pain doctor has had him try ketamine for depression. 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 He is now on bu prenorphine which has been helpful. His drinking accelerated when he was off buprenorphine. He has only taken primidone for the tremor and has been on this for many years. He had bee n on propranolol but his sales and marketing assistant decided to take him off because of bradycardia. He does report that he has slowed down over time and does have stiffness. ROS as outlined above. Past Medical History: Diagnosis Date BPH (benign prostatic hyperplasia) Bursitis Depression Hypothyroidism Low back pain Pulmonary embolism (HCC) Past Surgical History Procedure Laterality Date Gastric bypass Lumbar laminectomy with fusion using instrumentation Hip replacement Rotator cuff surgery Cholecystectomy Appendectomy Knee replacement Family History Problem Relation Tremor Mother Tremor Brother Tremor Maternal Grandmother Social History Tobacco Use Smoking status: Former Smoker Years: 15.00 Types: Cigarettes Smokeless tobacco: Never Used Substance Use Topics Alcohol use: Not Currently Retired [employer], 2008 Current Medication List Name Sig BUPRENORPHINE HCL [address] 8 mg under tongue. CYANOCOBALAMIN (VIT B-12) 1,000 MCG TABLET Take 1,000 mcg by mouth. CYCLOBENZAPRINE 10 MG TABLET Take 10 mg by mouth. DOCUSATE SODIUM 100 MG CAPSULE Take 200 mg by mouth. VITAMIN D ORAL Take 50,000 capsules by mouth. ESCITALOPRAM 20 MG TABLET Take 40 mg by mouth. FINASTERIDE 5 MG TABLET FLUOCINONIDE 0.05 % TOPICAL OINTMENT two times a day FUROSEMIDE 20 MG TABLET Take 20 mg by mouth. GABAPENTIN 300 MG CAPSULE Take 900 mg by mouth two times daily. IRON-150 ORAL Take by mouth. LEVOTHYROXINE 200 MCG TABLET MULTIVITAMIN CAPSULE Take 1 tablet by mouth daily DHEA ORAL Take 100 mg by mouth. PRIMIDONE 50 MG TABLET Take 250 mg by mouth once daily at bedtime. RIVAROXABAN 10 MG TABLET Take 20 mg by mouth. TAMSULOSIN 0.4 MG CAPSULE Take 0.4 mg by mouth. Unclear how long he will be on Xarelto Exam There were no vitals filed for this visit. General Exam Const: Comfortable and in no distress. Resp: Breathing comfortably. Psych: Does not appear anxious Neurologic Exam Mental Status: Alert. Language is fluent and comprehension is intact. Cranial Nerves: EOM full Facial activation is symmetric. No hypomimia. Hearing intact to conversation. No dysarthria. No hypophonia. Symmetric shoulder shrug. Tongue protrudes in midline with symmetric lateral movements. Motor/Movement: Bilateral immediate postural tremor L > R present with outstretched arms an d wing position more than at end point. Voice tremor and very mild yes-yes head tremor. Fi nger tapping slightly slower on left. Open/close and pronation/supination without decrement . Archimedes spiral with tremor L > R. No micrographia. Coordination: Finger to nose without ataxia Gait: Appears to have hip drop and foot slaps on right. Decreased arm swing bilaterally. No tremor with gait. Data Review No images or reports were available for review. Impression: Essential Tremor Mr. Fleming is a 74 yo man with complicated surgical history on chronic opioid, prior alcoho l use disorder who presents for evaluation of tremor. His exam today demonstrates L > R pos tural kinetic tremor, head tremor and possible subtle voice tremor. Though he decreased arm swing on ambulation, he otherwise has not clear parkinsonism on his exam today. I do feel that his diagnosis is most consistent with essential tremor based on his long history of anson mor and family history of similar. We discussed treatment options for ET today. Propranolo l and primidone are first line agents for treatment of ET and he has not tolerated the forme r. We are limited in our ability to increase primidone as he is currently on rivaroxaban an d primidone can decrease efficacy of the blood thinner. If rivaroxaban is discontinued in future, optimization of primidone could be considered (max dose is 750mg/day). In the int erim, he is a poor candidate for topiramate, zonisamide and clonazepam so we are left with a trial of a slight increase in gabapentin (already does note mild cognitive side effects). We lastly discussed surgical options for treatment of ET including DBS and lesioning procedu res. I explained that all of these procedures can increase risk for balance difficulties wh ich he already has so we would need to be very thoughtful about pursuing a surgical option i n the future. - Has tried propranolol and not tolerated - Cannot increase primidone at this time as it can lessen effect of Xarelto (may revisit if this is stopped in the future) - Poor candidate for topiramate and zonisamide due to h/o kidney stones - Poor candidate for clonazepam due to prior alcohol and narcotic addiction - Will redistribute gabapentin so he is taking 600/600/600. If tolerating he may increase by 300mg each week to goal dose of 900 tid. - We will continue discussing surgical options at future visits. F/u in 6 months. Sent MyChart with instructions from today. Ines Mensah MD Line Supply of Neurology [facility] documented in this e ncounter Plan of Treatment Not on filedocumented as of this encounter Visit Diagnoses + + | Diagnosis | + + | Essential tremor - Primary Essential and other specified forms of tremor | + + documented in this encounter
--- OUTSIDE RECORDS SUMMARY | ~2020-06-17 | XMS | Encounter Summary ---
Demographics + + + | Address | [address] | | | [place] [address] | + + + | Home Phone [...] + + + | Author | [facility] | | | and [place] | + + + | Organization | [facility] | | [...] [place] | | | | | [address] | | + + + + + | Mason Fleming | ECON | Unknown | | + + + + + Care Team Providers + +------+ + | Care Mechanical Engineering Advisor Name | Role | Phone | + +------+ + | Michael Grijalva | PCP | | | MD | | | + +------+ + Reason for Visit +---------+ + | Reason | Comments | +---------+ + | Post Op | right total hip arthroplasty DOS 09/05/2019 | +---------+ + Encounter Details +--------+---------+ + + + | Date | Type | Department | Care Team | Description | +--------+---------+ + + + | 10/05/ | Office | [facility] | Hollis Seaman, | History of total hip | 2019 | Visit | ORTHOPEDIC SURGERY | MD Krup[address] | arthroplasty, right | | | | [address] | [place] | (Primary Dx); | | | | [place] | [id number] | Postop check | | | | [address] | | | | | | [phone] | | | +--------+---------+ + + + [...] | 118.1 kg (260 lb 5.8 | 10/05/2019 11:14 AM | | | | oz) | PST | | + + + + + | Height | 185.4 cm (6' 1") | 10/05/2019 11:14 AM | | | | | PST | | + + + + + | Body Mass Index | 34.35 | 10/05/2019 11:14 AM | | | | | PST | | + + + + + documented in this encounter Progress Notes Hollis Seaman MD - 10/05/2019 11:30 AM PSTPatient returns follow up right total hip arth roplasty He is doing well overall He had a lot of swelling about the surgery site postop from hematoma It is settling down over time and his wound healed uneventfully He is walking with a cane His back is the only thing that hurts now - his hip is much improved xrays today show good alignment and position of the components Future follow up issues discussed with him He will call if he has any hip concernsElectronically signed by Hollis Seaman MD at 10/05 1:25 PM PSTdocumented in this encounter Plan of Treatment Not on filedocumented as of this encounter Results XR Pelvis 1 or 2 Vw (10/05/2019 11:14 AM PST) + + | Specimen | + + | | + + + + + | Impressions | Performed At | + + + | Intact right hip arthroplasty. Dictated and Signed by: Dandy | [facility] | | MD Ashleigh Electronically [...] | History of total hip arthroplasty, right - Primary | + + | Postop check Follow-up examination, following unspecified surgery | + + documented in this encounter
--- OUTSIDE RECORDS SUMMARY | ~2020-06-17 | XMS | Encounter Summary ---
Demographics + + + | Address | [address] | | | [place] [address] | + + + | Home Phone [...] Author + + + | Author | [facility] | | | and [place] | + + + | Organization | [facility] | | | and [...] [place] | | | | | [address] | | + + + + + | Mason Fleming | ECON | Unknown | | + + + + + Care Team Providers + +------+ + | Care Logging Rafter Laborer Name | Role | Phone | [...] | Physical | Diagnoses | [place], | [place], | | | Services | Medicine and | S/P lumbar | Jun | Peter Cunha MD | | | Required | Rehabilitatio | fusion | MICHELLE Navarro | [address] | | | | n | Lumbar | [address] | [facility] | | | | | radiculopath | [address]VE | [place], [place] | | | | | y | [place] | [address] Phone: | | | | | Hypertension | [address] | [phone] | | | | | , | Phone: | Fax: | | | | | unspecified | [phone] | [phone] | | | | | type Flat | Fax: | | | | | | back | [phone] | | | | | | syndrome, | | | | | | | acquired | | | +--------+ + + + + + Diagnostic/Screening (Routine) +--------+--------+ + + + + | Status | Reason | Specialty | Diagnoses / | Referred By | Referred To | | | | | Procedures | Contact | Contact | +--------+--------+ + + + + | Closed | | MRI | Diagnoses | [facility], | [facility] | | | | | S/P lumbar | [facility] | | | | | fusion | MICHELLE Navarro | [address] | | | | | Lumbar | [address] | [facility] | | | | | radiculopath | AVE | [place] | | | | | y Flat back | [place], [place] | [address] | | | | | syndrome, | [address] | Phone: | | | | | acquired | Phone: | [phone] | | | | | Procedures | [phone] | Fax: | | | | | MRI Lumbar | Fax: | [phone] | | | | | Spine w wo | [phone] | | | | | | Contrast | | | +--------+--------+ + + + + Reason for Visit +---------+ + | Reason | Comments | +---------+ + | Post Op | 12M PO | +---------+ + Encounter Details +--------+---------+ + + + | Date | Type | Department | Care Team | Description | +--------+---------+ + + + | 07/06/ | Office | [facility] | Jun Stout | S/P lumbar fusion | | 2017 | Visit | NEUROSURGERY [address] | [address] | (Primary Dx); Lumbar | | | | [address] [place], [place] | radiculopathy; | | | | [place] | [address] | Hypertension, | | | | [address] | | unspecified type; | | | | [phone] | | Flat back syndrome, | | | | | | acquired | +--------+---------+ + + + Social History [...] + + + | Blood Pressure | 111/55 | 07/06/2017 10:32 AM | | | | | PST | | + + + + + | Pulse | 39 | 07/06/2017 10:32 AM | | | | | PST [...] + + + + | Weight | 122.2 kg (269 lb 6.4 | 07/06/2017 10:32 AM | | | | oz) | PST | | + + + + + | Height | 181.6 cm (5' 11.5") | 07/06/2017 10:32 AM | | | | | PST | | + + + + + | Body Mass Index | 37.05 | 07/06/2017 10:32 AM | | | | | PST | | + + + + + documented in this encounter Progress Notes Jun Stout PA-C - 07/06/2017 10:00 AM PSTFormatting of this note might be differ ent from the original. Jun Stout PA-C [address] [facility] [place] [address] [place] [address] FAX: NEUROSURGERY FOLLOW-UP CHIEF COMPLAINT: Chief Complaint Patient presents with Post Op 12M PO HISTORY OF PRESENT ILLNESS: The patient is a 72 y.o. male that had a lumbar fusion for rad iculopathy around 10 months ago. He returns and overall is doing well. The patient complai ns of continued problem with some pain. He will have some sharp pains in his left leg as we ll as his right leg to some degree. He continues to have right foot weakness. The patient has been walking as much as directed. He is still taking pain medications at this point. The patient has had no issues with his surgical site. He has not had any particular improve ments. He is using approximately 5 Neurontin a day. This seems to help his nerve pain he h as difficulty sitting in a car for any length of time without having pain in his right butto ck and posterior thigh CURRENT MEDICATIONS: Current Outpatient Prescriptions Medication Sig [...] No current facility-administered medications for this visit. REVIEW OF SYSTEMS GENERALLY: No fever, no night sweats, no anemia, no fatigue,no recent profound weight jarod nges. EYES: No eye problems, no use of corrective lenses, no eye injury, no double vision, no bl indness. EARS, NOSE, AND THROAT: No changes in taste or smell, no hearing difficulty, no ringing in the ears, no ear drainage, no dizziness, no voice changes, no difficulty swallowing, no sig nificant snoring, no sleep apnea, no sinus problems, no major dental work. NEUROLOGICALLY: Please see the review of systems discussed above in the history of present illness. In addition, the patient has numbness/pain of legs, weakness, muscle aching, fonseca ge in walk and tremor/shaking. PSYCHIATRIC: No depression, no sleep disorders, no anxiety, no bipolar disorder, no psychotic episodes. CARDIOVASCULAR: No heart attacks, no heart murmur, no heart fluttering, no chest pain, no ankle swelling. LUNG DISEASE: No shortness of breath, no cough, no tuberculosis, no bloody cough, no asth ma, no emphysema/COPD. GASTROINTESTINAL: No bowel disease, no nausea or vomiting, no rectal bleeding, no constipat ion, no stool incontinence, no liver disease, no gallbladder disease, no abdominal pain, no ulcers. KIDNEY DISEASE: + urinary frequency, no painful or difficult urination, no incontinence. ENDOCRINE: No diabetes, + thyroid disease, no osteopenia or osteoporosis, no breast draina ge. SKIN: No breast lumps, no skin changes, no rashes, no itches. HEMATOLOGIC/LYMPHATIC: No enlarged lymph nodes, no easy or unusual bleeding, no personal h istory of cancer. RHEUMATOLOGIC: + joint arthritis, no rheumatoid arthritis. 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 He has a 16.00 pack-year smok ing history. He has never used smokeless tobacco. He reports that he drinks alcohol. He repo rts that he does not use drugs. INTERIM PHYSICAL EXAMINATION: Blood pressure 111/55, pulse (!) 39, height 1.816 m (5' 11.5"), weight 122.2 kg (269 lb 6.4 oz). Body mass index is 37.05 kg/m. GENERAL: Piter Fleming is in no acute distress with unlabored respirations. SPINE: The patient s incisions are healing well without drainage, significant erythema, o r discharge. EXTREMITIES: No lower extremity edema. NEUROLOGICAL EXAMINATION: MENTAL STATUS: The patient is awake, alert, and oriented. He follows simple and complex commands MOTOR EXAM: Motor strength is 4-/5. Right dorsiflexion SENSORY EXAM: The sensory examination is unchanged when compared to the preoperative exam. RADIOGRAPHIC [...] Diagnoses Name Primary? S/P lumbar fusion Yes Lumbar radiculopathy Hypertension, unspecified type Flat back syndrome, acquired Past Medical History: Diagnosis Date Asthma, intrinsic Benign localized hyperplasia of prostate with urinary obstruction Chronic pain syndrome Cystitis, subacute Depression Dermatitis due to drugs and medicines taken internally Dermatitis, eczematoid ERRONEOUS ENCOUNTER--DISREGARD 05/07/2015 Essential hypertension, benign Essential tremor Flank pain Folliculitis Hematuria High cholesterol Hx of gastric bypass Kidney stones Lumbar stenosis Major depressive disorder, recurrent, in partial remission (HCC) Nephrolithiasis Neuropathy (HCC) Hands and Feet Nontraumatic rupture of bicep tendon, right Right rupture rotator cuff complete Osteoarthrosis, localized, primary, knee, right Postgastrectomy syndrome Dumping syndrome Primary hypothyroidism Sciatica Sleep apnea Spinal stenosis, lumbar Thyroid disease PLAN: Overall, the patient is doing okay. Some of the preoperative symptoms are improved. I wou ld like him to have an MRI as well as a referral to physiatry because of his ongoing symptom s. I've encouraged him to take 600 mg of Neurontin 3 times daily consistently help with his nerve symptoms. This may need to be increased. This should be at the discretion of his [facility] care provider I increased the patient s activities As tolerated. The patient should increase range of motion activities as tolerated. They should continue regular exercise an d strengthening with the hope that they can avoid additional surgery. I've asked the patient to call us when he has completed his MRI so that we can review the r esults and call him. I've also asked him to follow-up with physiatry. If he has not heard back from us regarding his testing he should contact us otherwise he will follow-up on an as -needed basis ELECTRONICALLY SIGNED BY: Jun Stout PA-C, 07/06/2017 11:30 documented in this encounter Plan of Treatment + +---------+--------+ + + | Name | Type | Priori | Associated Diagnoses | Order Schedule | | | | ty | | | + +---------+--------+ + + | MRI Lumbar Spine w | Imaging | Routin | S/P lumbar fusion | Expected: 07/16/2017 | | wo Contrast | | e | Lumbar | (Approximate), | | | | | radiculopathy Flat | Expires: 07/05/2018 | | | | | back syndrome, | | | | | | acquired | | + +---------+--------+ + + + + +--------+ + + | Name | Type | Priori | Associated Diagnoses | Order Schedule | | | | ty | | | + + +--------+ + + | [facility] | Outpatient | Routin | S/P lumbar fusion | Ordered: 07/06/2017 | | | Referral | e | Lumbar | | | | | | radiculopathy | | | | | | Hypertension, | | | | | | Unspecified Type | | | | | | Flat back syndrome, | | | | | | acquired | | + + +--------+ + + documented as of this encounter Procedures + +--------+ + + + | Procedure Name | Priori | Date/Time | Associated Diagnosis | Comments | | | ty | | | | + +--------+ + + + | LABS - EXTERNAL SCAN | | 07/16/2017 | | Results for this | | | | 12:00 AM | | procedure are in the | | | | PST | | results section. | + +--------+ + + + documented in this encounter Results LABS - EXTERNAL SCAN (07/16/2017 12:00 AM PST) + + + | Narrative | Performed At | + + + | Ordered by an | | | unspecified provider. | | + + + documented in this encounter Visit Diagnoses + + | Diagnosis | + + | S/P lumbar fusion - Primary Arthrodesis status | + + | Lumbar radiculopathy Thoracic or lumbosacral neuritis or radiculitis, unspecified | + + | Hypertension, unspecified type | + + | Flat back syndrome, acquired Other lordosis (acquired) | + + documented in this encounter
--- OUTSIDE RECORDS SUMMARY | ~2020-06-17 | XMS | Encounter Summary ---
Demographics + + + | Address | [address] | | | [place] [address] | + + + | Home Phone | | + + + | Preferred Language | Unknown | + + + | Marital Status | | + + + | Jain Affiliation | 1013 | + + + | Race | White | + + + | Ethnic Group | Not or | + + + Author + + + | Author | [facility] [...] [place] | | | | | [address] | | + + + + + | Mason Fleming | ECON | Unknown | | + + + + + Care Team Providers + +------+ + | Care Restaurant Cook Name | Role | Phone | [...] Closed | | Radiology | Diagnoses | Rubber Stamp Maker, | | | | | | Ischial [...] | | | | | Right | [place] [address] | | | | | | | Phone: | | | | | | | [phone] | | | | | | | Fax: | | | | | | | [phone] | | +--------+--------+ + + + + Diagnostic/Screening (Routine) +--------+--------+ + + + + | Status | Reason | Specialty | Diagnoses / | Referred By | Referred To | | | | | Procedures | Contact | Contact | +--------+--------+ + + + + | Closed | | Radiology | Diagnoses | Rubber Stamp Maker, | | | | | | Ischial [...] | | | | Major Joint | [place], | | | | | | Left | [place] [address] | | | | | | | Phone: | | | | | | | [phone] | | | | | | | Fax: | | | | | | | [phone] | | +--------+--------+ + + + + [...] | | | | | Bursitis, | [place], | [address] | | | | | ischial, | Peter Cunha MD | [place], | | | | | left | [address] | [place] | | | | | Bursitis, | [place] | [address] | | | | | ischial, | [place], [place] | Phone: | | | | | right | [phone] | [phone] | | | | | Procedures | Phone: | Fax: | | | | | [place] | [phone] | [phone] | | | | | ARTHROCENTES | Fax: | | | | | | [place] | [phone] | | | | | | ASPIR&/INJ [...] | | | | | | APPT 3/5 | | | | | | | Bilateral | | | | | | | ischial | | | | | | | tuberosity | | | +--------+--------+ + + + + Encounter Details +--------+ + + + + | Date | Type | Department | Care Team | Description | +--------+ + + + + | 11/01/ | Hospital | [facility] | Ana Cristina Tiwari | Ischial bursitis of | | 2020 | Encounter | MED CTR XRAY [address] | MICHELLE Campbell [address] | left side; Ischial | | | | [address] [place] | [address] | bursitis of right | | | | [place] [address] | [address] [place], [place] | side | | | | [phone] | [address] | | | | | | | | | | | | Building Services Coordinator, [facility] | | | | | | [...] +---------+ + + | Blood Pressure | 164/75 | 11/02/2019 11:52 AM | | | | | PST | | + +---------+ + + | Pulse | 75 | 11/02/2019 11:52 AM | | | | | PST [...] + | [place] ASPIRATION | Routin | 11/02/2019 | Ischial bursitis | Results for this | | INJECTION MAJOR | e | 11:26 AM | of right side | procedure are in the | | JOINT RIGHT | | PST | | results section. | + +--------+ + + + | [place] ASPIRATION | Routin | 11/02/2019 | Ischial bursitis | Results for this | | INJECTION MAJOR | e | 11:26 AM | of left side | procedure are [...] iohexol (OMNIPAQUE 300) 300 | Given | 11/02/19 | 4 mLs | | | | mg/mL injection 4 mL 4 mL, | | 20 11:41 | | | | | Intra-articular, ONCE, Marli 11/02/19 | | AM PST | | | | | at 1145, For 1 dose | | | | | | + +--------+ +-------+------+------+ +---+---+ | | | +---+---+ + +-------+ +-------+---+---+ | lidocaine (PF) 1% injection 2 | Given | 11/02/19 | 2 mLs | | | | mL 2 mL, Intra-articular, ONCE, | | 20 11:44 | | | | | Marli 3/5/20 at 1145, For 1 dose | | AM PST | | | | + +-------+ +-------+---+---+ +---+---+ | | | +---+---+ + +-------+ +-------+---+ + | lidocaine buffered 0.9% | Given | 11/02/19 | 6 mLs | | Other | | injection 6 mL 6 mL, | | 20 11:39 | | | (Comment | | Intradermal, ONCE, Marli 11/02/19 at | | AM PST | | | ) | | 1145, For 1 dose | | | | | | + +-------+ +-------+---+ + +---+---+ | | | +---+---+ + +-------+ +-------+---+---+ | triamcinolone acetonide | Given | 11/02/19 | 80 mg | | | | (KENALOG-40) 40 mg/mL injection | | 20 11:44 | | | | | 80 mg 80 mg, Intra-articular, | | AM PST | | | | | ONCE, Marli 11/02/19 at 1145, For 1 | | | | | | | dose, Shake well. Not for IV | | | | | | | use., | | | | | | + +-------+ +-------+---+---+ +---+---+ | | | +---+---+ documented in this encounter"
--- OUTSIDE RECORDS SUMMARY | ~2020-06-17 | XMS | Encounter Summary ---
Demographics + + + | Address | [address] | | | [place] [address] | + + + | Home Phone [...] [place] | | | | | [address] | | + + + + + | Mason Fleming | ECON | Unknown | | + + + + + Care Team Providers + +------+ + | Care Family Court Counsellor Name | Role | Phone | + +------+ + | Michael Grijalva | PCP | | | MD | | | + +------+ + Encounter Details +--------+ + + + + | Date | Type | Department | Care Team | Description | +--------+ + + + + | 08/10/ | Orders Only | [facility] [place] | Jun Stout | Lumbar radiculopathy | | 2016 | | NEUROSURGERY [address] | MICHELLE [address] | (Primary Dx); S/P | | | | [address] | [address] [place], [place] | lumbar fusion | | | | [place], [place] | [id number] | | | | | [address] | | | | | | [phone] | | | +--------+ + + + [...] 2 or 3 Vw (09/17/2016 9:19 AM [facility]) + + | Specimen | + + | | + + + + + | Narrative | Performed At | + + + | XR LUMBAR SPINE 2 OR 3 VW 09/17/2016 9:19 AM HISTORY: Postop. | [facility] | | COMPARISON: Multiple priors. FINDINGS: There is stable hardware | [facility] | | for posterior fusion from L1 through S1 with spacer hardware at L2-3 | [facility] | | through L4-5. A left lateral [...] + | [facility] | [address] | [place] | [phone] | | [facility] | | [address] | | | - IMAGING | | | | + + + + + documented in this encounter Visit Diagnoses + + | Diagnosis | + + | Lumbar radiculopathy - Primary Thoracic or lumbosacral neuritis or radiculitis, | | unspecified | + + | S/P lumbar fusion Arthrodesis status | + + documented in this encounter"
--- OUTSIDE RECORDS SUMMARY | ~2020-06-17 | XMS | Encounter Summary ---
Demographics + + + | Address | [address] | | | [place] [address] | + + + | Home Phone | | + + + | Preferred Language | Unknown | + + + | Marital Status | | + + + | Lutheran Affiliation | 1013 | + + + | Race | White | + + + | Ethnic Group | Not or | + + + Author + + + | Author | [facility] | | | and [place] [...] [place] | | | | | [address] | | + + + + + | Mason Fleming | ECON | Unknown | | + + + + + Care Team Providers + +------+ + | Care Health Care Attorney Name | Role | Phone | + +------+ + | Michael Grijalva | PCP | | | MD | | | + +------+ + Reason for Visit + + + | Reason | Comments | + + + | Back Pain | low back pain | + + + | Tingling | bilateral legs | + + + Encounter Details +--------+---------+ + + + | Date | Type | Department | Care Team | Description | +--------+---------+ + + + | 03/26/ | Office | [facility] | Lyn, | BACK PAIN, LUMBAR | | 2013 | Visit | PHYSIATRY [address] | MICHELLE [address] | (Primary Dx); DDD | | | | [address] | [address] | (degenerative disc | | | | [place], [place] | [place] [address] | disease), lumbar; | | | | [address] | [phone] | Spinal stenosis of | | | | [phone] | | lumbar - worst at | [...] S1.; | | | | | | PERIPHERAL | | | | | | NEUROPATHY; Tremor, | | | | | | [...] + + + | Blood Pressure | 105/54 | 03/26/2014 11:35 AM | | | | | PDT | | + + + + + | Pulse | 52 | 03/26/2014 11:35 AM | | | | | PDT [...] Weight | 115.7 kg (255 lb) | 03/26/2014 11:35 AM | | | | | PDT | | + + + + + | Height | 185.4 cm (6' 1") | 03/26/2014 11:35 AM | | | | | PDT | | + + + + + | Body Mass Index | 33.64 | 03/26/2014 11:35 AM | | | | | PDT | | + + + + + documented in this encounter Patient Instructions Patient Instructions Aleja Nicholson PA-C - 03/26/2014 11:38 AM PDT Follow-up at the hospital thirty [...] of the procedure you must provide a regional owner operator truck driver to take you home. For all procedur es it is recommended that someone else drive you home. documented in this encounter Progress Notes Aleja Nicholson PA-C - 03/26/2014 11:36 AM PDTFormatting of this note might be differe nt from the original. CHIEF COMPLAINT: Chief Complaint Patient presents with Back Pain low back pain Tingling bilateral legs HISTORY OF PRESENT ILLNESS: The patient is a 69 y.o. male being seen today in follow-up for complaints of low back pain . The patient has been seen for this complaint in the past, with initial visit started by Dr. Haney. Previously it was recommended that he receive bilateral L3/L4 TFESI for lum bar radiculopathy, spinal stenosis. His last injection was September of this year. He reports that the treatment was effective for approximately 12 weeks, however has been progressively worsening in the last week. The patient's symptoms originally began many years ago. He rates the pain as 6 on scale o f 1-10. He describes the pain as aching or soreness to the low back area. His symptoms worsen with prolonged standing and walking. His symptoms improve with sitting and with leaning forward. The patient does describe numbness of the bilateral anterior thighs with increased severity of the back pain. He does not report weakness of the bilateral lower extermities. The patient does not repor t recent falls or trauma. He does not [...] by mouth twice emilie y Cholecalciferol (D3-50) 21360 UNITS CAPS 50,000 Units Once a week. [...] no palpitations PULMONARY: No shortness of breath, no cough. GASTROINTESTINAL: No nausea, vomiting or diarrhea GENITOURINARY: No dysuria or hematuria SKIN: No rashes. HEMATOLOGIC/LYMPHATIC: No abnormal bleeding PHYSICAL EXAMINATION: Filed Vitals: 03/26/14 1135 BP: 105/54 Pulse: 52 PainSc: 6 Body mass index is 33.65 kg/(m^2). GENERAL: [...] no apparent deficits with short or intermediate manager memory. He has appropriate fund of knowledge [...] the majority of the pain to the L2/3/4 reg ion. Lumbar facet loading was uncomfortable due to stenosis. Strength testing showed 5/5 s trength throughout the lower extremities. The patient was able to heel and toe walk without difficulty. There was no redness, effusion, warmth or joint line tenderness in the knees o r ankles. RADIOGRAPHIC REVIEW: The patient's imaging was reviewed in detail with the patient today during the visit. MRI from 12/14/2013 show DDD throughout, spinal stenosis L2/3 and L3/4, facet arthritis ASSESSMENT: 1. BACK PAIN, LUMBAR 2. DDD (degenerative disc disease), lumbar 3. Spinal stenosis of lumbar - worst at the L2-L3 and L3-L4 levels. This would be classifi ed as severe. 4. Degenerative disc disease lumbar spine - he has degenerative changes at every level from L2 to S1. 5. PERIPHERAL NEUROPATHY 6. Tremor, essential PLAN: 1. The patient has tried conservative therapy in the past and has failed in symptoms impro vement. He has been receiving bilateral epidurals by Dr. Haney targeting the level jus t below the stenosis L3/L4. I do feel he would be a good candidate for this injection and I have ordered it for the near future. 2. I have started the patient on Gabapentin 300mg, take 1 tab PO bedtime x 3 days, increase to 2 tabs PO bedtime, since most of his pain is at night, after a long days work. We can a lways increase this for throughout the day as needed. 3. The patient is to follow up PRN pain. ELECTRONICALLY SIGNED BY: Aleja Nicholson PA-C, 03/26/2014 SUPERVISING PHYSICIAN: Peter Haney MD, who was [...] Diagnosis: Lumbar radiculopathy ICD-9 Code 724.4 Piter Damir | [facility] | | Lonnie presents to the fluoroscopy suite for fluoroscopically-guided [facility] | | bilateral L3-L4 transforaminal epidural [...] ST. | [address] | [place], [place] | [phone] | | [facility] | | [address] | | | - IMAGING | | | | + + + + + documented in this encounter Visit Diagnoses + + | Diagnosis | + + | BACK PAIN, LUMBAR - Primary Lumbago | + + | DDD (degenerative disc disease), lumbar Degeneration of lumbar or lumbosacral | | intervertebral disc | + + | Spinal [...] lumbosacral intervertebral disc | + + | PERIPHERAL NEUROPATHY Unspecified hereditary and idiopathic peripheral neuropathy | + + | Tremor, essential Essential and other specified forms of tremor | + + documented in this encounter
--- OUTSIDE RECORDS SUMMARY | ~2020-06-17 | XMS | Encounter Summary ---
Demographics + + + | Address | [address] | | | [place] [address] | + + + | Home Phone | | + + + | Preferred Language | Unknown | + + + | Marital Status | | + + + | Temple Affiliation | CAT | + + + | Race | Unknown | + + + | Ethnic Group | Other Race | + + + Author + + + | Author | [facility] | + + + | Organization | [facility] | + + + | Address | Unknown | + + + | Phone | Unavailable | + + + Support +---------+ +---------+ + | Name | Relationship | Address | Phone | +---------+ +---------+ + | Unk Unk | ECON | Unknown | Unavailable | +---------+ +---------+ + Care Team Providers + +------+ + | Care Patternmaker Pressure Cast Name | Role | Phone | + +------+ + PCP | Unavailable | + +------+ + Encounter Details +--------+ + + + + | Date | Type | Department | Care Team | Description | +--------+ + + + + | 08/08/ | Abstract | Neurology at | Clinic, Neurology | | | 2019 | | [facility] & | | | | | | Healing [address] | | | | | | [facility] | | | | | | Health and Healing, | | | | | | [facility] | | | | | | Floor [place], [place] | | | | | | [address] | | | | | | [phone] | | | +--------+ + + + [...]
--- OUTSIDE RECORDS SUMMARY | ~2020-06-17 | XMS | Encounter Summary ---
Demographics + + + | Address | [address] | | | [place] [address] | + + + | Home Phone | | + + + | Preferred Language | Unknown | + + + | Marital Status | | + + + | Anglican Affiliation | 1013 | + + + | Race | White | + + + | Ethnic Group | Not or | + + + Author + + + | Author | [facility] | | | and [...] [place] | | | | | [address] | | + + + + + | Mason Fleming | ECON | Unknown | | + + + + + Care Team Providers + +------+ + | Care Cylinder Tester Name | Role | Phone | + +------+ + | Michael Grijalva | PCP | | | MD | | | + +------+ + Reason for Visit + + + | Reason | Comments | + + + | Back Pain | low back pain radiating into bilateral legs | + + + Encounter Details +--------+---------+ + + + | Date | Type | Department | Care Team | Description | +--------+---------+ + + + | 05/11/ | Office | [facility] | Lyn, | Lumbar radiculopathy | | 2016 | Visit | PHYSIATRY [address] | MICHELLE [address] | (Primary Dx); | | | | [address] | [address] | Spinal stenosis of | | | | [place] | [place] [address] | lumbar - worst at | | | | [address] | [phone] | the L2-L3 and L3-L4 | | | | [phone] | | levels. This would | | [...] | | | | | region | +--------+---------+ + + + Social History [...] + + + | Blood Pressure | 104/48 | 05/11/2016 10:06 AM | | | | | PDT | | + + + + + | Pulse | 36 | 05/11/2016 10:06 AM | | | | | PDT [...] Weight | 115.7 kg (255 lb) | 05/11/2016 10:06 AM | | | | | PDT | | + + + + + | Height | 185.4 cm (6' 1") | 05/11/2016 10:06 AM | | | | | PDT | | + + + + + | Body Mass Index | 33.64 | 05/11/2016 10:06 AM | | | | | PDT | | + + + + + documented in this encounter Patient Instructions Patient Instructions Aleja Nicholson PA-C - 05/11/2016 10:22 AM PDT1) Please get xray for Dr. Jorge, do before or after the injection with Dr. Knox 2) Epidural injection with Dr. Haney Follow-up at the hospital thirty minutes before [...] of the procedure you must provide a driver medic to take you home. For all procedur es it is recommended that someone else drive you home. documented in this encounter Progress Notes Aleja Nicholson PA-C - 05/11/2016 10:10 AM PDTFormatting of this note might be differe nt from the original. CHIEF COMPLAINT: Chief Complaint Patient presents with Back Pain low back pain radiating into bilateral legs HISTORY OF PRESENT ILLNESS: The patient is a 71 y.o. male being seen today in follow-up for complaints of low back pain . The patient has been seen for this complaint in the past, with initial visit started by Dr. Haney. Previously it was recommended that he receive bilateral L3/L4 TFESI for lum bar radiculopathy, spinal stenosis. His last injection was 01/22/2016. He reports that the tr eatment was 100% effective but only for five weeks. He has been getting injections with Dr. Haney for the last 5 years. He is schedule with Dr. Jorge the beginning of May. He rates the pain as 5 on scale of 1-10. He describes the pain as aching or soreness to th e low back area. His symptoms worsen with prolonged standing and walking. His symptoms impr ove with sitting and with leaning forward. He cannot extend his back due to pain. He does have aching pain to the anterior thighs with prolonged standing. The patient does describe numbness of the [...] No abnormal bleeding PHYSICAL EXAMINATION: Filed Vitals: 05/11/16 1006 BP: 104/48 Pulse: 36 PainSc: 5 PainLoc: Back Body mass index [...] has no apparent deficits with short or mcc memory. He has appropriate fund of knowledge Cranial nerves 2-12 appear grossly intact. Sensory exam does show diminished sensation to light touch in the bilateral lower extremit ies equally. REFLEX: RIGHT LEFT PATELLAR 0 0 ACHILLES 0 0 MUSCULOSKELETAL There is no major palpable deformity of the spine. Straight leg raise and slump-sit are negative. Memo's maneuver and impingement testing were negative for any groin pain. There was no tenderness to palpation over the greater tr ochanters or sacral sulci. The patient localized the majority of the pain to the L3/4 regio n and into the buttocks. Lumbar facet loading was uncomfortable due to stenosis. Strength testing showed 5/5 strength throughout the lower extremities. The patient was able to heel and toe walk without difficulty. There was no redness, effusion, warmth or joint line tende rness in the knees or ankles. RADIOGRAPHIC REVIEW: The patient's imaging was reviewed in detail with the patient today during the visit. MRI from 2016 shows DDD throughout, spinal stenosis L2/3 and L3/4, multi-level facet arthritis. ASSESSMENT: 1. Lumbar radiculopathy 2. Spinal stenosis of lumbar - worst at the L2-L3 and L3-L4 levels. This would be classifi ed as severe. 3. Degenerative disc disease lumbar spine - he has degenerative changes at every level from L2 to S1. 4. Infantile idiopathic scoliosis of lumbar region PLAN: 1. The patient has tried conservative [...] no changes made at this time. 3. He is scheduled to see Dr. Jorge in May, he was advised to get a a lumbar xray. ELECTRONICALLY SIGNED BY: Aleja Nicholson PA-C, 05/11/2016 CC: Dr. Grijalva documented in t his encounter Plan of Treatment Not on filedocumented as of this encounter Results [place] [facility] Lumbar Transforaminal (05/11/2016 11:59 AM PDT) + + | Specimen | + + | | + + + + + | Narrative | Performed At | + + + | 05/11/2016 Bilateral Transforaminal Epidural Steroid Injections | [place] | | Diagnosis: Lumbar radiculopathy ICD-10 Code M54.16 [place] | [facility] | | Damir Fleming presents to the fluoroscopy suite for [facility] | | fluoroscopically-guided bilateral L3-L4 transforaminal epidural [...] | + + + + + | [facility] [address] | [address] | [place], [place] | [phone] | | [facility] | | [address] | | | - IMAGING | | [...]
--- OUTSIDE RECORDS SUMMARY | ~2020-06-17 | XMS | Encounter Summary ---
Demographics + + + | Address | [address] | | | [place] [address] | + + + | Home Phone [...] | Author | [facility] | | | and [place] [...] [place] | | | | | [address] | | + + + + + | Mason Fleming | ECON | Unknown | | + + + + + Care Team Providers + +------+ + | Care Dye Blender Name | Role | Phone | + [...] | | | | and/or Inj | [address] | | | | | | Major Joint | Phone: | | | | | | Right | [phone] | | | | | | | Fax: | | | | | | | [phone] | | +--------+--------+ + + + + Diagnostic/Screening (Routine) +--------+--------+ + + + + | Status | Reason | Specialty | Diagnoses / | Referred By | Referred To | | | | | Procedures | Contact | Contact | +--------+--------+ + + + + | Closed | | Radiology | Diagnoses | | | | | | | Ischial | [place], | | | | | | bursitis of | Peter Cunha MD | | | | | | left side | [address] | | | | | | Procedures | [place] | | | | | | [place] | [place] | | | | | | and/or Inj | [address] | | | | | | Major Joint | Phone: | | | | | | Left | [phone] | | | | | | | Fax: | | | | | | | [phone] | | +--------+--------+ + + + + Encounter Details +--------+ + + + + | Date | Type | Department | Care Team | Description | +--------+ + + + + | 07/14/ | Orders Only | [facility] [place] | Peter Haney | Ischial bursitis of | | 2019 | | PHYSIATRY [address] | MD Guerline [address] | right side (Primary | | | | [address] | [place] | Dx); Ischial | | | | [place] | [address] | bursitis of left | | | | [address] | | side | | | | [phone] | | | +--------+ + + + [...] side | + + documented in this encounter"
--- OUTSIDE RECORDS SUMMARY | ~2020-06-17 | XMS | Encounter Summary ---
Demographics + + + | Address | [address] | | | [place] [address] | + + + | Home Phone | | + + + | Preferred Language | Unknown | + + + | Marital Status | | + + + | Faith Affiliation | 1013 | + + + | Race | White | + + + | Ethnic Group | Not or | + + + Author + + + | Author | [facility] | | | and [place] | + + + | Organization | [facility] | | [...] [place] | | | | | [address] | | + + + + + | Mason Fleming | ECON | Unknown | | + + + + + Care Team Providers + +------+ + | Care Senior It Recruiter Name | Role | Phone | + +------+ + | Michael Grijalva | PCP | | | MD | | | + +------+ + Reason for Visit + + + | Reason | Comments | + + + | Follow-up | Left ischial bursitis | + + + Service/Procedure (Routine) +--------+--------+ + + + + | Status | Reason | Specialty | Diagnoses / | Referred By | Referred To | | | | | Procedures | Contact | Contact | +--------+--------+ + + + + | Closed | | Physical | Diagnoses | | [facility] | | | | Medicine and | Bursitis of | [place], | Physiatry | | | | Rehabilitatio | other bursa | Peter Cunha MD | [address] | | | | n | of left hip | [address] | [address] | | | | | Ischial | [place] | [place] | | | | | bursitis of | [place], [place] | [place] [address] | | | | | left side | [id number] | Phone: | | | | | Procedures | Phone: | [phone] | | | | | [place] INJECT | [phone] | Fax: | | | | | TENDON | Fax: | [phone] | | | | | ORIGIN/INSER | [phone] | | | | | | T NH SONO | | | | | | | GUIDE NEEDLE | | | | | | | BIOPSY NH | | | | | | | TRIAMCINOLON | | | | | | | E ACET INJ | | | | | | | NOS, 10 MG | | | | | | | NH | | | | | | | ARTHROCENTES | | | | | | | IS | | | | | | | ASPIR&/INJ | | | | | | | MAJOR | | | | | | | JT/BURSA W/O | | | | | | | US In | | | | | | | office- | | | | | | | 02/22/2019 | | | | | | | Ultrasound | | | | | | | guided left | | | | | | | Ischial | | | | | | | tuberosity | | | | | | | injection | | | +--------+--------+ + + + + Encounter Details +--------+ + + + + | Date | Type | Department | Care Team | Description | +--------+ + + + + | 02/22/ | Procedure | [facility] [place] | Peter Haney | Ischial bursitis of | | 2019 | visit | PHYSIATRY [address] | left side (Primary | | | | [address] | [address] [place] | Dx); S/P lumbar | | | | [place] | [phone] | fusion; Trochanteric | | | | [address] | | bursitis, right | | | | [phone] | | hip; Bilateral hip | | | | | | joint arthritis | +--------+ + + + + Social [...] Weight | 117.5 kg (259 lb) | 02/22/2019 9:11 AM | | | | | PDT | | + + + + + | Height | 181.6 cm (5' 11.5") | 02/22/2019 9:11 AM | | | | | PDT | | + + + + + | Body Mass Index | 35.62 | 02/22/2019 9:11 AM | | | | | PDT | | + + + + + documented in this encounter Progress Notes Peter Haney MD - 02/22/2019 9:00 AM PDT CHIEF COMPLAINT: Chief Complaint Patient presents with Follow-up Left ischial bursitis HISTORY OF PRESENT ILLNESS: Piter Fleming is a 73 y.o. male being seen today in follow-up for complaints of low b ack pain/buttocks pain and hip pain. He underwent a very extensive lumbar fusion in 2016 fr om L1-S1. He has also been diagnosed with ischial bursitis and has previously been diagnose d with ischial tuberosity bursitis. He has received an injection into that region. He has also been found to have hip arthritis and received a RIGHT intra-articular hip injection on 09/2018 which he reports provided significant relief but only for 1 month. He was seen previ ously by Efraín Turk PA-C who felt he may benefit from ultrasound guided ischial tuberosit y bursa injection and proximal hamstring needle tenotomy. He also complains of midline back pain around the T8 region that is worse with twisting and in the morning. At this time he continues to have pain in the region of the "sitting bones" with prolonged sitting, left > right. He is also experiencing right sided lateral hip pain. Today, Mr. Fleming rates his pain as 6-7 on a scale of 0-10. He indicates that the pain is dependent on sitting and movement. He describes the pain as an aching/sharp pain. His sympt oms worsen with prolonged sitting. His symptoms improve with change of position. The later al hip pain is worse with lying on the right side. The patient does not describe numbness of the legs. He does report weakness of the bilate ral lower extremities, worse in the right leg (he indicates right drop foot). He reports th e weakness is a chronic symptom that has been present post neurosurgical intervention. He d oes not have bowel and bladder dysfunction. He [...] HEMATOLOGIC/LYMPHATIC: No abnormal bleeding PHYSICAL EXAMINATION: Vitals: 02/22/19 0911 PainSc: 7 Body mass index is 35.62 kg/m. GENERAL: The patient is well developed and well nourished. He does not appear uncomfortabl e when seated. HEENT: HEAD/FACE: EYES: Normocephalic and atraumatic. There are no areas of recent trauma. Normal sclerae without icterus. SKIN Limited skin exam shows no significant rashes or lesions. There are well-healed surgic al scars in the lumbar region. CHEST: The [...] has no apparent deficits with short or group home memory. He has appropriate fund of knowledge Cranial nerves 2-12 appear grossly intact. Sensory exam - Mildly decreased sensation to light touch to bilateral lower extremities. De creased strength noted in right leg with a foot drop on the right. MOTOR EXAM: (5 IS NORMAL) * Indicates pain limited MUSCLE/ MOVEMENT: RIGHT LEFT Hip Flexion 5 5 Knee Flexion 5 5 Knee Extension 5 5 Extensor Hallicus Longus 5 5 Ankle Dorsiflexion 4 5 Plantarflexion 5 5 MUSCULOSKELETAL Straight leg raise and slump-sit are negative. Memo's maneuver and impi ngement testing were negative for RIGHT groin pain but did cause lateral hip paon. There w as tenderness to palpation over the right greater trochanter. There was no tenderness over the sacral sulci. The patient localized the majority of the pain to the bilateral ischial b ursa, L>R. Lumbar facet loading was neg. Strength testing as above. There was no redness, effusion, warmth or joint line tenderness in the knees or ankles. Imaging review: MRI lumbar spine from 12/2018 shows the fusion changes L1-S1. There is a disc protrusion le ft of midline at T12-L1. He does appear to have some continued foraminal stenosis on the ri ght at L5-S1. ASSESSMENT: 1. Ischial bursitis of left side 2. S/P lumbar fusion 3. Trochanteric bursitis, right hip 4. Bilateral hip joint arthritis PLAN: 1) Today we discussed the patient's differential diagnosis with the likely primary issue be ing left-sided ischial bursitis. As above it has been recommended that he may benefit from ultrasound guided ischial tuberosity bursa injection and proximal hamstring needle tenotomy. He does wish to try this procedure and I did feel that would be appropriate. Description of procedure. Ischial tuberosity bursa injection and proximal hamstring tenoto my performed using ultrasound guidance. After the patient gave consent for the procedure the area for the injection was located by direct ultrasound visualization and palpation. The area was then sterilized with chlorhexid ine scrub and a sterile drape was applied. A sterile probe cover and sterile ultrasound gel were applied to the probe. Then under direct ultrasound guidance a 22-gauge 3-1/2 inch need le was inserted down to the ischial tuberosity and hamstring tendon origin. I did infuse ap proximately 2 mL of 1% lidocaine into the skin and deeper tissues. Multiple passes were made through the tendon origin. Next 2 mL, including 1 mL of triamcinolone (40 milligrams per m L) and 1 mL of 0.5% ropivacaine was then infused into the region of the ischial tuberosity. Pictures were taken to document needle placement. The needle was then removed and the area was cleaned and bandaged. The patient tolerated the procedure well. There were no complicati ons. The patient was instructed to ice the area for 15-20 minutes several times over the ne xt few days and to watch for any signs of infection. 2) The patient does have evidence of trochanteric bursitis as well. He is also hoping for an injection in that region and I did feel that was appropriate. Description of procedure: After reviewing the relative risks and benefits the patient conse nted to the procedure. The patient was laid in a lateral decubitus position. The most tender area was palpated th en marked over the lateral hip. The area was then sterilized with Betadine swabs and alcoho l and cooled with an ethyl chloride spray before inserting a 1-1/2 inch 27-gauge needle into the region to administer approximately 2 mL of 1% lidocaine for local anesthesia. Then a 22 gauge spinal needle was advanced down to the greater trochanter. Once bone was encountered the needle was slightly retracted before injecting a total volume of 5 mL, including 1 mL of triamcinolone (40 milligrams per mL) and 2 mL each of 1% lidocaine and 0.5% ropivacaine. Th e needle was then removed and the area was cleaned and bandaged. The patient tolerated the p rocedure well. There were no complications. The patient was instructed to ice the area for 15-20 minutes several times over the next few days and to watch for any signs of infection. 3) I counseled the patient on treatment options which included conservative self managemen t using OTC NSAIDs/Ice and heat packs, physical therapy, prescription medications, additiona l injections, neuromodulation devices, as well as possible surgical intervention. 4) Spinal cord stimulators were discussed in detail with the patient today. I advised him t hat this treatment may be considered in the future. We discussed that because he does have s everal different issues that are all likely contributing to his pain it is going to be diffi cult to treat all of those issues with procedures but a spinal cord stimulator may be able t o treat a wider area. 5) He did mention bilateral hand numbness and upper back pain in passing. We may need to focus on those issues more in the future with additional imaging or possibly EMG/NCS. ELECTRONICALLY EDITED AND SIGNED BY: Peter Haney MD documented in this encounter Plan of Treatment Not on filedocumented as of this encounter Visit Diagnoses + + | Diagnosis | + + | Ischial bursitis of left side - Primary | + + | S/P lumbar fusion Arthrodesis status | + + | Trochanteric bursitis, right hip | + + | Bilateral hip joint arthritis | + + documented in this encounter Administered Medications + + + +-------+------+------+ | Medication Order | MAR | Action | Dose | Rate | Site | | | Action | Date | | | | + + + +-------+------+------+ | lidocaine 1% injection 5 mL 5 | Given by | 02/23/20 | 5 mLs | | | | mL, Other, ONCE, Wed02/22/19 at | Other | 19 10:34 | | | | | 1100, For 1 dose | | AM PDT | | | | + + + +-------+------+------+ +---+---+ | | | +---+---+ + + + +-------+---+---+ | ropivacaine (NAROPIN) 5 mg/mL | Given by | 02/23/20 | 3 mLs | | | | (0.5%) injection 3 mL 3 mL, | Other | 19 10:36 | | | | | Other, ONCE, 02/22/19 at 1100, | | AM PDT | | | | | For 1 dose | | | | | | + + + +-------+---+---+ +---+---+ | | | +---+---+ + + + +-------+---+---+ | triamcinolone acetonide | Given by | 02/23/20 | 80 mg | | | | (KENALOG-40) 40 mg/mL injection | Other | 19 10:37 | | | | | 80 mg 80 mg, Other, ONCE, Wed | | AM PDT | | | | | 02/22/19 at 1100, For 1 dose, | | | | | | | Shake well. Not for IV use., | | | | | | + + + +-------+---+---+ +---+---+ | | | +---+---+ documented in this encounter
--- OUTSIDE RECORDS SUMMARY | ~2020-06-17 | XMS | Encounter Summary ---
Demographics + + + | Address | [address] | | | [place] [address] | + + + | Home Phone [...] [facility] | | | and [place] [...] [place] | | | | | [address] | | + + + + + | Mason Fleming | ECON | Unknown | | + + + + + Care Team Providers + +------+ + | Care Portable Sawyer Name | Role | Phone | + +------+ + | Michael Grijalva | PCP | | | MD | | | + +------+ + Encounter Details +--------+ + + + + | Date | Type | Department | Care Team | Description | +--------+ + + + + | 12/30/ | Hospital | [facility] | Joshua Jorge MD | S/P lumbar fusion; | | 2017 | Encounter | MED CTR XRAY [address] | [address] | Edema of right foot | | | | [place] | [place] [address] | | | | | [place] [id number] | [phone] | | | | | [phone] | | | +--------+ + + + [...] of this encounter Plan of Treatment + +---------+--------+ + + | Name | Type | Priori | Associated Diagnoses | Order Schedule | | | | ty | | | + +---------+--------+ + + | VAS Lower Extremity | Imaging | STAT | S/P lumbar fusion | 1 Occurrences | | Venous Right | | | Edema of right foot | starting 12/30/2016 | | | | | | until 12/30/2016 | + +---------+--------+ + + documented as of this encounter Procedures + +--------+ + + + | Procedure Name | Priori | Date/Time | Associated Diagnosis | Comments | | | ty | | | | + +--------+ + + + | XR LUMBAR SPINE 2 OR | Routin | 12/30/2016 | S/P lumbar fusion | Results for this | | 3 VW | e | 10:23 AM | | procedure are in the [...] ST. | [address] | [place], [place] | [phone] | | [facility] | | [address] | | | - IMAGING | | | | + + + + + documented in this encounter Visit Diagnoses + + | Diagnosis | + + | S/P lumbar fusion Arthrodesis status | + + | Edema of right foot | + + documented in this encounter"
--- OUTSIDE RECORDS SUMMARY | ~2020-06-17 | XMS | Encounter Summary ---
Demographics + + + | Address | [address] | | | [place] [address] | + + + | Home Phone | | + + + | Preferred Language | Unknown | + + + | Marital Status | | + + + | Scientology Affiliation | 1013 | + + + | Race | White | + + + | Ethnic Group | Not or | + + + Author + + + | Author | [facility] | | | and [...] [place] | | | | | [address] | | + + + + + | Mason Fischer | ECON | Unknown | | + + + + + Care Team Providers + +------+ + | Care Fork Truck Operator Name | Role | Phone | + +------+ + PCP | Unavailable | + +------+ + Encounter Details +--------+ + + + + | Date | Type | Department | Care Team | Description | +--------+ + + + + | 02/27/ | Hospital | [facility] | | | | 2010 | Encounter | CONVERSION [address] | | | | | | [address] | | | | | | [place] | | | | | | [address] | | | | | | [phone] | | | +--------+ + + + [...] +--------+ + + + | MRI KNEE LEFT WO | Routin | 02/27/2011 | | Results for this | | CONTRAST | e | 7:37 PM | | procedure are in the | | | | PDT | | results section. | + +--------+ + + + documented in this encounter Results MRI Knee Left wo Contrast (02/27/2011 7:37 PM PDT) + + | Specimen | + + | | + + + + + | Narrative | Performed At | + + + | [facility] [address] Ph: | | | Patient Name: PITER FISCHER Date of : | | | 1945 Medical Record: [id number] Account: [id number] | | | Exam Date/Time: 02/27/2011 19:15 Ordering | | | Physician: POLLY Wynn Detail: [id number] Exam Description: | | | MRI KNEE LEFT UNENHANCED | | | | | | Melissa knee protocol for surgical purposes only. No professional | | | dictation will be given. Read by Brayan Medina DO on 03/05/2011 | | | 8:46 AM | | | 3:29 PM | | + + + + + | Procedure Note | + + | jP Oliver - 04/22/2019 12:41 PM PDT | | [facility] | | [facility] [place] [address] | | | | | | Patient Name: PITER FISCHER | | Date of : 1945 | | Medical Record: [id number] | | Account: [id number] | | | | | | Exam Date/Time: 02/27/2011 19:15 | | Ordering Physician: POLLY MOE | | Order Detail: [id number] | | Exam Description: MRI KNEE LEFT UNENHANCED | | | | Melissa knee protocol for surgical purposes only. No professional dictation | | will be given. | | | | Read by Brayan Medina DO on 03/05/2011 8:46 AM | | | | | + + documented in this encounter Visit Diagnoses Not on filedocumented in this encounter"
--- OUTSIDE RECORDS SUMMARY | ~2020-06-17 | XMS | Encounter Summary ---
Demographics + + + | Address | [address] | | | [place] [address] | + + + | Home Phone | | + + + | Preferred Language | Unknown | + + + | Marital Status | | + + + | Sabianist Affiliation | 1013 | + + + | Race | White | + + + | Ethnic Group | Not or | + + + Author + + + | Author | [facility] | [...] [place] | | | | | [address] | | + + + + + | Mason Fleming | ECON | Unknown | | + + + + + Care Team Providers + +------+ + | Care End Frazer Name | Role | Phone | + +------+ + | Michael Grijalva | PCP | | | MD | | | + +------+ + Reason for Visit +--------+--------+ + | Reason | Onset | Comments | | | Date | | +--------+--------+ + | Other | 10/19/ | | | | 2018 | | +--------+--------+ + Encounter Details +--------+ + + + + | Date | Type | Department | Care Team | Description | +--------+ + + + + | 10/19/ | Telephone | [facility] | Peter Haney | Other | | 2017 | | PHYSIATRY [address] | | | | | [address] | [place], [place] | | | | | [place], [place] | [address] | | | | | [address] | | | | | | [phone] | | | +--------+ + + + [...] Telephone Encounter - Mahogany Elena CMA - 10/21/2017 12:01 PM PSTReferral submitted to patients insurance. Patient was advised that per Dr. Haney this would be evaluated in the clinic and then most likely it would be performed under fluruoscopy guidance. Patient wa s in agreement with this plan and a same day hold for injection was placed.Electronically si gned by Mahogany Elena CMA at 10/21/2017 12:02 PM PSTTelephone Encounter - Kathleen Elena CMA - 10/21/2017 11:25 AM PSTI returned the patients call. He states that when he was o mirian at the hospital having his SI joint injections with Dr. Haney they discussed ischia l tuberosity injections. He says that Dr. Haney told him that this was something that m ay be able to be performed in the office but left it at that. Patient calling now asking if he will be receiving this injection during his scheduled follow up on 11/09. I advised the praveen leigh that I was sorry because I am out of the loop given that this conversation happened in imaging and I have no documentation as to what was discussed. I told the patient that I wou ld reach out to Dr. Haney to find out what the plan was going to be and then give him a call back with more information. He did also ask that if we have a cancellation we try to get him in sooner. Referral for further injections would still need to be submitted to patients insurance comp any. elephone Ava Euceda - 10/19/2017 3:04 PM PSTPatient is requesting a call back from Umair koenig. Per patient it's regarding some injection. The injections done on 10/06/17 are working for him. Asked to be out on the wait list for a sooner follow up appointment than 11/09/17. Gabby smith advisdylan documented in th is encounter Plan of Treatment Not on filedocumented as of this encounter Visit Diagnoses Not on filedocumented in this encounter"
[~2020-06-17 15:30] MED LIST changes: +BUPRENORPHINE HC8 MG SL; +CYCLOBENZAPRINE10 MG PO; +FERREX 150150 MG PO; +FINASTERIDE5 MG PO; +FUROSEMIDE20 MG PO; +L-CARNITINE500 M1 PO; +LEVOTHYROXINE200 MCG PO; +POTASSIUM CHLO10 ME1 PO; +XARELTO15 MG PO; +XARELTO20 MG PO
--- OUTSIDE RECORDS SUMMARY | 2020-06-17 15:52 | XMS ---
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 Latisha VISIT COUNT (12 MO.) 3 JOEY Thibodeaux TOTAL 3 NOTE: Visits indicate total known visits. ED/UCC VISIT TRACKING (12 MO.) 06/17/2020 15:30 [facility] [place] TYPE: Emergency COMPLAINT: - BILAT LEG SWELLING, LOW HEART RATE 11/14/2019 11:49 [facility] [place] TYPE: Emergency COMPLAINT: - RAPID HEART RATE DIAGNOSES: - Dehydration - Essential (primary) hypertension - Personal history of nicotine dependence - Tachycardia, unspecified - Other long term care phlebotomist (current) drug therapy 11/08/2019 15:44 JOEY Valentin TYPE: Emergency COMPLAINT: - SOB INPATIENT VISIT TRACKING (12 MO.) 11/08/2019 15:45 JOEY Valentin TYPE: Observation COMPLAINT: - PE DIAGNOSES: - Other nonspecific abnormal finding of lung field - Benign prostatic hyperplasia without lower urinary tract symp - Other long term care phlebotomist (current) drug therapy - Shortness of breath - Essential (primary) hypertension - Other pulmonary embolism without acute cor pulmonale - Major depressive disorder, single episode, unspecified - Essential tremor - Obstructive sleep apnea (adult) (pediatric) - Other pulmonary embolism without acute cor pulmonale - Hypothyroidism, unspecified 09/05/2019 09:03 [facility] TYPE: Surgical Services DIAGNOSES: - Presence of unspecified artificial hip joint - Unilateral primary osteoarthritis, right hip [id number]
--- NOTE | 2020-06-18 10:13 | EKG ---
[facility] [address] [place] [address] Signed Marked sinus bradycardia with sinus arrhythmia with 1st degree AV block Left axis deviation Right bundle branch block Minimal voltage criteria for LVH, may be normal variant Abnormal ECG When compared with ECG of 14-NOV-2019 12:00, Vent. rate has decreased BY 58 BPM T wave inversion more evident in Inferior leads Nonspecific T wave abnormality now evident in Lateral leads QT has shortened Confirmed by JIMMY ANNE MD ([id number]) on 06/18/2020 10:13:38 AM Electronically Signed By: JIMMY ANNE MD 06/18/20 1013 PATIENT NAME: DEVIN FISCHER Electrocardiogram DATE OF : [birth year] PHYSICIAN: JIMMY ANNE MD REPORT #: [id number] REPORT IS CONFIDENTIAL AND NOT TO BE RELEASED WITHOUT AUTHORIZATION
== END 2020-06-17 18:17 | disposition short-term general hospital (02) ==
LOC: ED 15:30
DX: I49.5 Sick sinus syndrome (principal); I10 Essential (primary) hypertension; G47.30 Sleep apnea, unspecified; E03.9 Hypothyroidism, unspecified; F32.9 Major depressive disorder, single episode, unspecified; Z87.891 Personal history of nicotine dependence; Z79.899 Other long term (current) drug therapy
CPT/HCPCS: 71045; 80053; 84484; 85025; 93005; 93010; 99285-25

== ENCOUNTER 2020-08-24 03:17 | Inpatient (IN) | payer MEDICARE, BC ==
[~2020-08-24] VITALS: Ht 185.4 cm; Wt 127.3 kg
[~2020-08-24 03:17] MED LIST changes: -FUROSEMIDE20 MG PO; +LASIX80 MG PO
--- OUTSIDE RECORDS SUMMARY | 2020-08-24 03:20 | XMS ---
PreManage Notification: DEVIN FISCHER Security Materials Planning Manager Events No recent Security Events currently on file CRITERIA MET - JOHNP CARE PROVIDERS CHELI [facility] 11/09/2019-Current PHONE: Unknown JANICE LOPEZ [facility] 11/09/2019-Current PHONE: [phone] Chiqui has no Care Guidelines for this patient. Latisha VISIT COUNT (12 MO.) Trell Thibodeaux TOTAL 4 NOTE: Visits indicate total known visits. ED/UCC VISIT TRACKING (12 MO.) 08/24/2020 03:18 [facility] [place] TYPE: Emergency COMPLAINT: - COUGHING UP BLOOD 06/17/2020 15:30 [facility] [place] TYPE: Emergency COMPLAINT: - BILAT LEG SWELLING, LOW HEART RATE DIAGNOSES: - Sick sinus syndrome - Sleep apnea, unspecified - Other terminal carman (current) drug therapy - Essential (primary) hypertension - Hypothyroidism, unspecified - Major depressive disorder, single episode, unspecified - Personal history of nicotine dependence 11/14/2019 11:49 [facility] TYPE: Emergency COMPLAINT: - RAPID HEART RATE DIAGNOSES: - Dehydration - Essential (primary) hypertension - Personal history of nicotine dependence - Tachycardia, unspecified - Other mcfp (current) drug therapy 11/08/2019 15:44 [facility] TYPE: Emergency COMPLAINT: - SOB INPATIENT VISIT TRACKING (12 MO.) 06/17/2020 19:49 [facility] [place] TYPE: Medical [facility] COMPLAINT: - BILATERAL LEG SWELLING, LOW HEART RATE DIAGNOSES: 0. Bradycardia, unspecified 1. Atrioventricular block, complete 2. Coagulation defect, unspecified 3. Hypertensive heart disease with heart failure 4. Heart failure, unspecified 5. 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 Major depressive disorder, single episode, unspecified 7. Anxiety disorder, unspecified 8. Hypothyroidism, unspecified 9. Essential tremor 10. Unspecified osteoarthritis, unspecified site 11. Obesity, unspecified 12. Bariatric surgery status 13. Personal history of pulmonary embolism 14. Benign prostatic hyperplasia without lower urinary tract symptoms 15. Other chronic pain 16. Other terminal carman (current) drug therapy 17. Body mass index [BMI] 37.0-37.9, adult 11/08/2019 15:45 [facility] TYPE: Observation COMPLAINT: - PE DIAGNOSES: - Other nonspecific abnormal finding of lung field - Benign prostatic hyperplasia without lower urinary tract symptoms - Other mcfp (current) drug therapy - Shortness of breath - Essential (primary) hypertension - Other pulmonary embolism without acute cor pulmonale - Major depressive disorder, single episode, unspecified - Essential tremor - Obstructive sleep apnea (adult) (pediatric) - Other pulmonary embolism without acute cor pulmonale - Hypothyroidism, unspecified 09/05/2019 09:03 [facility] [place] TYPE: Surgical Services DIAGNOSES: - Presence of unspecified artificial hip joint - Unilateral primary osteoarthritis, right hip [email or web address]
[2020-08-24] MEDS ORDERED: CEFDINIR300 MG PO (03:39)
[2020-08-24] MEDS ORDERED: DILT-XR120 MG PO (03:40)
[2020-08-24] MEDS ORDERED: BUPRENORPHINE HC8 MG SL (03:40)
--- NOTE | 2020-08-24 06:46 | NUR ---
pt ARRIVED TO FLOOR. WALKED FROM STRETCHER TO BED. SBA. ON 4L O2 SATS HIGH 90'S. DENIES SOB AT THIS TIME. REPORTED "I JUST HAVE FELT FOGGY THE LAST COUPLE DAYS." IVF AND IV ABX INFUSING PER ORDERS. CALL LIGHT WITHIN REACH. SHERMAN AT BEDSIDE.
--- NOTE | 2020-08-24 06:54 | NUR ---
UPDATED MD ON FEVER. NO NEW ORDERS AT THIS TIME.
--- NOTE | 2020-08-24 09:00 | NUR ---
Patient resting, respirations even and non labored. Patient's vital signs stable. Pt requesting to rest at this time. CPAP from home at bedside. RT to come see pt and set up. at bedside. Personal supplies and call light within reach.
--- NOTE | 2020-08-24 09:10 | NUR ---
PT AT 98% ON 4L NC. TITRATED TO 3L NC. PLACED CPAP ON OXYGEN FOR PT USE.
--- NOTE | 2020-08-24 10:13 | NUR ---
CALLED [facility] TO REQUEST RECORDS MESSAGED WAS RECIEVED AND SENT TO THE NURSING UNDERWATER ROBOTICIST.
--- NOTE | 2020-08-24 12:40 | NUR ---
CALLED [facility] AGAIN ASKED FOR THE NURSING LINING MACHINE TENDER, LINING MACHINE TENDER DIDN'T ANSWER PHONE SO ANOTHER MESSAGE WAS LEFT TO REQUEST INFORMATION.
--- NOTE | 2020-08-24 13:00 | NUR ---
Patient resting bed, respirations even and non labored. Patient denies pain, sob and or chest pain. Pt denies needs. Personal supplies and call light within reach.
[2020-08-24] MEDS ORDERED: XARELTO15 MG PO (13:09)
[2020-08-24] MEDS ORDERED: FINASTERIDE5 MG PO (13:10)
--- NOTE | 2020-08-24 13:16 | NUR ---
TITRATED TO RA. SATURATIONS AT 99%.
--- NOTE | 2020-08-24 13:56 | NUR ---
PATIENT AWAKE IN CHAIR, VITALS AND I&OS CHARTED. PATIENT UP AND INTO BATHROOM, WILL CALL IF NEEDED.
--- NOTE | 2020-08-24 14:44 | NUR ---
[facility] THE NURSING PIG FARM MANAGER BARRETT, REQUESTED THE RECORDS THE NURSING PIG FARM MANAGER AT [facility] SAYS SHE SEE WHAT SHE CAN DO.
--- NOTE | 2020-08-24 17:29 | NUR ---
PATIENT AWAKE IN CHAIR, VITALS AND I&OS CHARTED. PATIENT UNHAPPY WITH DINNER, WILL BE BRINGING SOUP THIS EVENING. CALL LIGHT IN REACH
--- NOTE | 2020-08-24 18:05 | NUR ---
Patient doing well, a&ox4. Pt reports ongoing head pain and states he believes this is due to drinking less pop than usual. Patient reports consuming close to a case of diet cola daily. Patient weaned to room air, respirations even and non labored, respirations even and non labored. Patient denies sob and or chest pain. Personal supplies and call light.
--- NOTE | 2020-08-24 19:30 | NUR ---
SHIFT REPORT RECEIVED FROM DAYSCTFT LEONARD DANIELS AT BEDSIDE. pt AWAKE AND RESTING IN CHAIR, IN ROOM. pt SALINE LOCKED, DENIES NEEDS AT THIS TIME. CALL LIGHT IN REACH.
--- NOTE | 2020-08-24 20:45 | NUR ---
ASSESSMENT COMPLETE, SCHEDULED MEDS GIVEN (SEE EMAR). pt AWAKE AND RESTING IN CHAIR, IV FLUSHED. BRISK BLOOD RETURN NOTED. IV ABX STARTED PER ORDERS. pt DENIES PAIN AND NAUSEA, IN ROOM. NO FURTHER NEEDS AT THIS TIME, CALL LIGHT IN REACH.
--- NOTE | 2020-08-24 20:45 | NUR ---
IN TO GET PT VITALS, I&OS IN, RN IN AT THE TIME, PT HAD ICE WATER TOPPED OFF AND DIET SODA BY MYSELF EARLIER, PT WILL CALL WHEN READY FOR BED
--- NOTE | 2020-08-24 21:10 | NUR ---
PT CALLED, REQ SBA WITH IV POLE TO GET TO THE TOILET, NOW BACK IN THE CHAIR AT THIS TIME, ICE WATER TOPPED OFF AND DIET SODA PROVIDED
--- NOTE | 2020-08-24 21:45 | NUR ---
SPOKE TO TELEPHARMACY REGARDING COMPATABILITY BETWEEN IV VANCO AND IV CEFEPIME. PER TELEPHARMACY, RESULTS UNCERTAIN. WILL PAUSE CEFEPIME AND INFUSE IV VANCO THEN RESUME CEFEPIME. WILL CLARIFY COMPATABILITY WITH IN HOUSE PHARMACY IN THE MORNING.
--- NOTE | 2020-08-24 22:10 | NUR ---
ASSISTED PRIMARY RN SAMEER TO TRACK DOWN PT'S EVEING DOSE OF PRIMIDONE. HIS KITS LIST HAS THE MORNING DOSE 250MG BUT NOT THE EVENING DOSE OF 150MG. CALLED TELE PHARMACY AND THEY SAID IT IS SOMETHING THAT MAIN PHARMACY ONLY HAS ACCESS TO AND WE ARE NOT ABLE TO PULL IT FROM THE [facility]. SPOKE WITH THE PT TO SEE IF HE HAS HIS HOME BOTTLE WITH HIM THAT WE COULD VERIFY WITH TELEPHARMACY FOR TONIGHTS DOSE AND HE SAID HE DOES NOT HAVE IT BUT HE IS FINE IF HE MISSES A DOSE HE TAKES IT FOR HIS TREMORS. SPOKE WITH CHIEF OF ANESTHESIOLOGY ABOUT THIS AND SHE AGREED IF PT IS OK SKIPPING TONIGHTS DOSE WE DO NOT HAVE ACCESS TO IT WITHOUT CALLING IN A PHARMACIST. ALSO SPOKE WITH PT'S PRIMARY RN AND WE ALL AGREED THAT IF THE PT IS OK WITH THIS HE CAN SKIP TONIGHT'S DOSE.
--- NOTE | 2020-08-24 22:15 | NUR ---
pt UP SBA TO BATHROOM TO VOID AND HAVE POSSIBLE BM. pt COMPLIANT WITH CARE AND STEADY ON FEET. NO FURTHER NEEDS AT THIS TIME, VERBALIZED UNDERSTANDING TO CALL OCTAVE BOARD ASSEMBLER WHEN READY TO GO BACK TO BED.
--- NOTE | 2020-08-24 22:30 | NUR ---
IN TO SBA PT TO BED, PT ABLE TO WALK TO BATHROOM AND TO BED WELL, TREMORS ARE MANAGABLE, SBA WITH IV POLE OTHERWISE INDP IN RM, CALLS APPROPERATLY, PT IN BED AT THIS TIME, ABLE TO PUT CPAP ON AND START MACHINE, NO FURHTER NEEDS, PT READY FOR BED
--- NOTE | 2020-08-25 01:15 | NUR ---
pt RESTING QUIETLY IN BED WITH EYES CLOSED, HOME CPAP MACHINE IN PLACE WITH 3L BLEED THROUGH. RR EVEN AND UNLABORED. IV ABX INFUSING PER MD ORDERS. CALL LIGHT IN REACH.
--- NOTE | 2020-08-25 01:57 | NUR ---
IN TO SBA PT TO TOILET WITH IV POLE, PT WAS INCT OF VOID, CHANGED DRAWSHEET AND FITTED, 2AM VITS DONE AT THISTIME, NO FURTHER NEEDS
--- NOTE | 2020-08-25 03:00 | NUR ---
ASSESSMENT COMPLETE, SCHEDULED MEDS GIVEN (SEE EMAR). IV ABX STARTED PER MD ORDERS, IV SITE WNL. BRISK BLOOD RETURN NOTED. pt DENIES PAIN AND NAUSEA. HOME CPAP IN PLACE WITH 3L O2 BLEED IN. NO ADDITIONAL NEEDS, CALL LIGHT IN REACH.
--- NOTE | 2020-08-25 03:35 | NUR ---
SPUTUM SAMPLE COLLECTED AND SENT TO LAB. SAMPLE BLOOD TINGED.
--- NOTE | 2020-08-25 04:45 | NUR ---
IV PUMP ALARMING, ISSUE RESOLVED. pt APPEARS COMFORTABLE, CALL LIGHT INR EACH. RR EVEN AND UNLABORED.
--- NOTE | 2020-08-25 04:56 | NUR ---
IV PUMP PEDRO LUIS, ISSUE RESOLVED. CALL LIGHT IN REACH.
--- NOTE | 2020-08-25 05:15 | NUR ---
IN RM TO GET PT VITALS AND TO ASK IF PT WOULD AGREE TO GO OFF CPAP FOR AN HOUR TO CLEAR RM FOR AGP, PT AGREES, AGP STOPPED AT 0510, RM CLEARS AT 0620, NO FURTHERS NEEDS AT THIS TIME
--- NOTE | 2020-08-25 05:29 | NUR ---
pt HAD A GOOD NIGHT, HOME CPAP MACHINE IN PLACE. VSS, DENIED PAIN AND NAUSEA THIS SHIFT. SBA WITH AMBULATION, REGULAR DIET, TOLERATING WELL. RECEIVING IV ABX, OTHERWISE SALINE LOCKED. IV SITE WNL, BRISK BLOOD RETURN NOTED.
--- NOTE | 2020-08-25 06:29 | NUR ---
PT CALLED FOR ASSISTANCE TO RESTROOM. HE VOIDED IN TOILET WITHOUT THE HAT. HE IS NOW BACK IN BED AND LAB IS IN THE ROOM WITH HIM. CALL LIGHT IS CLOSE.
--- NOTE | 2020-08-25 06:51 | NUR ---
SCHEDULED THYROID MEDICATION GIVEN (SEE EMAR). pt ASSISTED TO CHAIR SBA, IV ABX INFUSING. SITE REMAINS WNL. FRESH ICE WATER AND ICE PROVIDED. CALL LIGHT IN REACH.
--- NOTE | 2020-08-25 07:24 | NUR ---
SPOKE TO GABY FROM PHARMACY. GABY FROM PHARMACY TO RETIME BOTH IV CEFEPIME AND PO CARDIZEM. PER GABY, IV VANCO AND IV CEFEPIME ARE COMPATABLE. SHE WILL UPDATE EMAR AND INCLUDE COMPATABILITY INFO. ARNOLDO MULLIGAN.
--- NOTE | 2020-08-25 07:55 | NUR ---
PATIENT SITTING UP IN CHAIR. WHITE BOARD UPDATED. PATIENT USES THE BATHROOM. PATIENT BACKS TO CHAIR. STAND BY ASSIST. LINENS CHANGED. PATIENT REFUSED TO TAKE A SHOWER TODAY. CALL LIGHT WITHIN REACH. NO OTHER NEEDS AT THIS TIME
--- NOTE | 2020-08-25 09:45 | NUR ---
Med pass and assessment complete. Pt able to get all meds without difficulty. Pt assessment complete, VSS, see charting for details. Pt in chair. Pt denies nausea at this time, and reports 5/10 pain tx with tylenol per pt request. Pt denies further needs at this time. Pt in chair, table and call light within reach.
--- NOTE | 2020-08-25 10:01 | NUR ---
PATIENT SITTING UP IN CHAIR. RN IN ROOM. VITAL SIGNS DONE BY RN. I&O DONE. CALL LIGHT WITHIN REACH. NO OTHER NEEDS AT THIS TIME
--- NOTE | 2020-08-25 11:00 | NUR ---
Rounding. Pt in chair. Pt up to bathroom to void. Pt denies dizziness and has steady gait. Pt back to chair, table and call light within reach. Pt denies needs at this time.
--- NOTE | 2020-08-25 12:15 | NUR ---
Rounding. Pt up to bathroom with CHIEF BUSINESS OFFICER.
--- NOTE | 2020-08-25 13:00 | NUR ---
Med pass completed. Pt able to take all meds without difficulty, as ordered. Pt in chair. Denies pain and nausea at this time. Table and call light within reach.
--- NOTE | 2020-08-25 13:42 | NUR ---
PATIENT SITTING UP IN CHAIR. RN IN ROOM. VITAL SIGNS AND I&O DONE. CALL LIGHT WITHIN REACH. NO OTHER NEEDS AT THIS TIME
--- NOTE | 2020-08-25 13:52 | EKG ---
[facility] [address] [place] [address] Signed Ventricular-paced rhythm Abnormal ECG When compared with ECG of 17-JUN-2020 15:42, Electronic ventricular pacemaker has replaced Sinus rhythm Vent. rate has increased BY 61 BPM Confirmed by JIMMY ANNE MD ([id number]) on 08/25/2020 1:52:05 PM Electronically Signed By: JIMMY ANNE MD 08/25/20 1352 PATIENT NAME: FISCHERDEVINAYLA MELÉNDEZ Electrocardiogram DATE OF : 49 PHYSICIAN: JIMMY ANNE MD REPORT #: [id number] REPORT IS CONFIDENTIAL AND NOT TO BE RELEASED WITHOUT AUTHORIZATION
--- NOTE | 2020-08-25 14:00 | NUR ---
Rounding. Pt denies pain and nausea at this time. Pt denies needs. Pt in chair, table and call light within reach.
--- NOTE | 2020-08-25 15:13 | NUR ---
Rounding and med pass. Pt able to take med without difficulty. Pt assessment completed, VSS, see charting for more. Pt lungs sound clear throughout, the right lower lobe is tight and diminished. Pt denies pain and nausea at this time. Pt in chair, table and call light within reach.
--- NOTE | 2020-08-25 17:05 | NUR ---
PATIENT SITTING UP IN CHAIR. VITAL SIGNS AND I&O DONE. PATIENT'S HEART RATE WHE UP TO 115. RN NOTIFIED. CALL LIGHT WITHIN REACH. NO OTHER NEEDS AT THIS TIME
--- NOTE | 2020-08-25 18:17 | NUR ---
Responding to call light. Pt up to bathroom. Pt denies pain and nausea at this time. Pt back to chair, table and call light within reach. Pts at bedside.
--- NOTE | 2020-08-25 19:44 | NUR ---
RECEIVED REPORT FROM LEONARD KING. pt SITTING IN BED WITH LEGS ELEVATED. LENGTHY DISCUSSION ABOUT THE LAST TWO DAYS AND FLUID RESTRICTION. pt THOUGHT HE WAS STILLING USING OXYGEN WITH CPAP, TALKED TO RTRAQUEL, HE WILL ASSESS MACHINE. PROVIDED ICE WATER. NO FURTHER REQUESTS AT THIS TIME. CALL LIGHT WITHIN REACH.
--- NOTE | 2020-08-25 19:45 | NUR ---
ALLOTTED ICE WATER PROVIDED REQUESTED. PRIMARY RN AWARE. pt RESTING IN BED ON RA, CONVERSING WITH THIS RN. NO ADDITIONAL NEEDS AT THIS TIME.
--- NOTE | 2020-08-25 20:40 | NUR ---
VERBAL REPORT RECEIVED FROM LEONARD LAFLEUR. THIS RN TO ASSUME CARE FOR pt. pt AWAKE AND RESTING IN BED, WATCHING TV. RR EVEN AND UNLABORED. NO DISTRESS NOTED. CALL LIGHT IN REACH.
--- NOTE | 2020-08-25 21:15 | NUR ---
ASSESSMENT COMPLETE, SCHEDULED MEDS GIVEN (SEE EMAR). IV VANCO HUNG AND INFUSING PER MD ORDERS, SITE WNL. FLUSHES EASILY. VSS, pt DENEIS NAUSEA. BT ACTIVE. ALSO DENIES PAIN. pt ASSISTED TO BATHROOM TO VOID AND IS BACK IN BED. STEADY ON FEET, DENIES ASSISTANCE. pt STATES HE WILL PUT ON CPAP AFTER ADMINSITRATION OF NEXT IV ABX. NO FURTHER NEEDS, CALL LIGHT IN REACH.
--- NOTE | 2020-08-25 22:40 | NUR ---
IV ANTIBIOTIC INFUSING ORDERED. pt ASSISTED TO APPLY HOME CPAP AT THIS TIME. NO ADDITIONAL REQUESTS, CALL LIGHT IN REACH.
--- NOTE | 2020-08-26 00:55 | NUR ---
ROUNDING ON pt, pt RESTING QUIETLY IN BED WITH EYES CLOSED. RR EVEN AND UNLABORED, CPAP MACHINE IN PLACE. NO DISTRESS NOTED, CALL LIGHT IN REACH.
--- NOTE | 2020-08-26 01:50 | NUR ---
CALL LIGHT ANSWERED. SBA TO THE BATHROOM AND BACK TO BED. PATIENT IS USING CPAP. NO OTHER NEEDS AT THIS TIME.
--- NOTE | 2020-08-26 03:00 | NUR ---
pt RESTING QUIETLY IN BED WITH EYES CLOSED. RR EVEN AND UNLABORED, CPAP MACHINE IN PLACE. NO DISTRESS NOTED, CALL LIGHT IN REACH.
--- NOTE | 2020-08-26 03:44 | NUR ---
pt SLEEPING, AWAKENS TO VOICE FOR MEDICATION ADMINISTRATION. VSS. IV ANTIBIOTIC INFUSING WNL ORDERED. SBA TO RESTROOM FOR VOID AND BACK TO BED, pt DENIES SOB, GAIT STEADY. CPAP ON. CALL LIGHT IN REACH.
--- NOTE | 2020-08-26 06:14 | NUR ---
CALL LIGHT ANSWERED. SBA TO RESTROOM FOR VOID AND BACK TO BED, DENIES SOB W AMBULATION. ON RA. IV ANTIBIOTIC INFUSING WNL. CALL LIGHT IN REACH, NO ADDITIONAL REQUESTS.
--- NOTE | 2020-08-26 06:50 | NUR ---
ASSESSMENT COMPLETE, NO NEW CHANGES AT THIS TIME. pt RESTING IN BED, DENIES PAIN. IV ABX INFUSING, SITE WNL. NO ADDITIONAL NEEDS, THYROID MED RECENTLY GIVEN BY CUSTOMER CARE ASSOCIATE. CALL LIGHT IN REACH.
--- NOTE | 2020-08-26 07:19 | NUR ---
PT AWAKE RESTING IN BED TALKING ON THE PHONE. TECH HERE FOR ECHOCARDIOGRAM, PT DENIES QUESTIONS STATING HE HAS HAD THIS DONE BEFORE. NO C/O OR REQUESTS.
--- NOTE | 2020-08-26 07:43 | NUR ---
PATIENT RESTING IN BED. DIAGNOSTIC IMAGING STAFF IN ROOM. WHITE BOARD UPDATED. CALL LIGHT WITHIN REACH. NO OTHER NEEDS AT THIS TIME
--- NOTE | 2020-08-26 08:11 | NUR ---
CALL LIGHT ANSWERED. PATIENT ASSISTED TO USE THE BATHROOM. PATIENT BACKS TO BED. ONE PERSON ASSISTING. SETS UP TABLE FOR BREAKFAST. SETS UP BATHROOM FOR SHOWER. CALL LIGHT WITHIN REACH. NO OTHER NEEDS AT THIS TIME
--- NOTE | 2020-08-26 08:54 | NUR ---
PATIENT USING THE BATHROOM. IV WRAPPED. PATIENT TAKES A SHOWER. CALL LIGHT WITHIN REACH. NO OTHER NEEDS AT THIS TIME
--- NOTE | 2020-08-26 09:46 | NUR ---
PATIENT SITTING UP IN CHAIR. RN IN CHARGE IN ROOM. VITAL SIGNS AND I&O DONE. CALL LIGHT WITHIN REACH. NO OTHER NEEDS AT THIS TIME
--- NOTE | 2020-08-26 10:53 | NUR ---
CALL LIGHT ANSWERED. PATIENT ASSISTED TO USE THE BATHROOM. PATIENT BACKS TO CHAIR. ONE PERSON ASSISTING. CALL LIGHT WITHIN REACH. NO OTHER NEEDS AT THIS TIME
--- NOTE | 2020-08-26 11:03 | NUR ---
PT HAS A SHOWER EARLIER, WELL TOLERATED. SITTING UP IN THE CHAIR AT THIS TIME ABX INFUSING.
--- NOTE | 2020-08-26 13:50 | NUR ---
PATIENT UP TO BATHROOM AND BACK TO CHAIR, SBA. CALL LIGHT IN REACH. NO FURTHER NEEDS AT THIS TIME.
--- NOTE | 2020-08-26 17:30 | NUR ---
PATIENT TO BATHRROM AND BACK TO CHAIR, SBA. CALL LIGHT IN REACH. NO FURTHER NEEDS AT THIS TIME.
--- NOTE | 2020-08-26 18:21 | NUR ---
PT UP IN THE ROOM INDEPENDANTLY IN THE ROOM. COMPLETES EVENING MEAL REMAINS IN THE RECLINER.
--- NOTE | 2020-08-26 19:10 | NUR ---
REPORT RECEIVED FROM DAY SHIFT RN. PT SITTING IN RECLINER. ALERT AND ORIENTED. RA. IV ABX INFUSING. WHITE BOARD UPDATED. NO NEEDS AT THIS TIME. CALL LIGHT IN REACH.
--- NOTE | 2020-08-26 21:50 | NUR ---
EVENING ASSESSMENT COMPLETE. SCHEDULED MEDS ADMINISTERED PER EMAR. IV ABX INFUSING. PT ON RA. DENIES PAIN OR NAUSEA. NO C/O SOB. BLE EDEMA NOTED, ENCOURAGED PT TO ELEVATE LEGS. UP TO BR WITH SBA TO VOID 75 ML YELLOW URINE. GAIT STEADY. BACK TO RECLINER, FRANC WELL.
--- NOTE | 2020-08-26 23:38 | NUR ---
CALL LIGHT ANSWERED. PT UP TO BR WITH SBA TO VOID 50 ML. GAIT STEADY. BACK TO BED, FRANC WELL. NO SOB NOTED. IV VANCO COMPLETE. NO FURTHER NEEDS. PT READYING TO PLACE HOME CPAP, DENIES ASSISTANCE. CALL LIGHT IN REACH.
--- NOTE | 2020-08-27 01:33 | NUR ---
PT RESTING ON BACK WITH EYES CLOSED. CPAP IN PLACE. RESPIRATIONS EVEN AND UNLABORED. IV ABX INFUSING.
--- NOTE | 2020-08-27 02:10 | NUR ---
CALL LIGHT ANSWERED. URINE CYLINDER EMPTIED AND RETURNED TO BEDSIDE TABLE PER pt REQUEST. pt HAS NO ADDITIONAL CONCERNS. IV ANTIBIOTIC INFUSING WNL. CALL LIGHT IN REACH.
--- NOTE | 2020-08-27 04:19 | NUR ---
SCHEDULED MEDS ADMINISTERED. PT UP TO SIDE OF BED TO VOID. GAIT STEADY. BACK TO BED. CPAP IN PLACE. DENIES NEEDS.
--- NOTE | 2020-08-27 05:30 | NUR ---
SCHEDULED MEDS ADMINISTERED. VS AND I&O COMPLETE. PT STATES "I HAD A GOOD NIGHT". THIS RN ATTEMPTED X 1 TO DRAW MORNING LABS, UNSUCCESSFUL. WATER TECHNICIAN IN TO TRY. PT DENIES FURTHER NEEDS AT THIS TIME. CALL LIGHT IN REACH.
--- NOTE | 2020-08-27 07:20 | NUR ---
bedside report from joey rn, pt denies needs, labs complete, call light in reach.
--- NOTE | 2020-08-27 08:27 | NUR ---
PATIENT SITTING UP IN CHAIR. PATIENT'S BREAKFAST ORDERED. CALL LIGHT WITHIN REACH. NO OTHER NEEDS AT THIS TIME
--- NOTE | 2020-08-27 09:04 | NUR ---
PATIENT SITTING UP IN CHAIR. VITAL SIGNS AND I&O DONE. CALL LIGHT WITHIN REACH. NO OTHER NEEDS AT THIS TIME
--- NOTE | 2020-08-27 09:30 | NUR ---
Spoke with [facility] for dc plan. He denies needs, does not use DME. He will go home with his and she will assist him.
--- NOTE | 2020-08-27 10:15 | NUR ---
rn with pt to verify multiple po meds, lab in for mikeyo draw now. only 1 iv site at this time, pt denies pain or needs, call light in reach.
[2020-08-27] MEDS ORDERED: LEVOFLOXACIN750 MG PO (10:51)
--- NOTE | 2020-08-27 11:12 | NUR ---
rn assisted pt to dress for dc home. iv still fusing abx, tylenol po given for 4/10 back pain. up in talked about transition home today.
== END 2020-08-27 13:00 | disposition home or self-care (01) | DRG 193 ==
LOC: ED 03:17 → MS 03:19
PROVIDERS: ADMIT Internal Medicine; ATTEND Internal Medicine
DX: J18.9 Pneumonia, unspecified organism (principal); J96.01 Acute respiratory failure with hypoxia; I50.33 Acute on chronic diastolic (congestive) heart failure; F33.9 Major depressive disorder, recurrent, unspecified; Z20.828 Contact with and (suspected) exposure to other viral communicable diseases; I11.0 Hypertensive heart disease with heart failure; I48.0 Paroxysmal atrial fibrillation; G47.33 Obstructive sleep apnea (adult) (pediatric); N40.0 Benign prostatic hyperplasia without lower urinary tract symptoms; E03.9 Hypothyroidism, unspecified; G25.0 Essential tremor; F10.21 Alcohol dependence, in remission; F11.21 Opioid dependence, in remission; G89.4 Chronic pain syndrome; Z86.711 Personal history of pulmonary embolism; Z98.84 Bariatric surgery status; Z79.899 Other long term (current) drug therapy; Z79.01 Long term (current) use of anticoagulants; Z95.0 Presence of cardiac pacemaker
CPT/HCPCS: 36415; 71045; 80048; 80053; 80202; 83605; 83735; 83880; 85025; 86635; 87070; 87205; 87327; 87449; 87502; 87899; 93005; 93010; 93306; 94667; 94668; 94760; 99285-25; C9803; J0692; J1940; J1956; J3370; J7060; J7121; U0003

== ENCOUNTER 2024-03-15 15:04 | Emergency (ER) | payer MEDICARE, BC ==
[~2024-03-15] VITALS: Ht 185.4 cm; Wt 121.2 kg
[~2024-03-15 15:04] MED LIST changes: +CEFDINIR300 MG PO; +DILT-XR120 MG PO; +LEVOFLOXACIN750 MG PO
--- OUTSIDE RECORDS SUMMARY | 2024-03-15 15:05 | XMS ---
PreManage Notification: DEVIN FISCHER Security Senior Support Engineer Events No recent Security Events currently on file CRITERIA MET - JOHNP CARE PROVIDERS JANICE LOPEZ [facility] 11/09/2019-Current PHONE: Unknown CHELI CALERO Physician Alternative Energy Technician 11/09/2019-Current PHONE: Unknown Chiqui has no Care Guidelines for this patient. Latisha VISIT COUNT (12 MO.) 2 [facility] TOTAL 2 NOTE: Visits indicate total known visits. 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 Essential tremor [id number]. Essential Tremor [email or web address]
[2024-03-15 15:33] LABS: HEMATOCRIT 27.2 % (35.0-50.0); HEMOGLOBIN 8.6 g/dL (12.0-18.0); MCH 27.4 (27-36); MCHC 31.7 g/dl (30-36); MCV 86.4 fl (81-99); PLATELET COUNT 634 K/uL (140-440); RBC 3.15 M/ul (4.3-5.7); RDW 16.7 (10.5-15.0)
[2024-03-15 15:56] LABS: ALBUMIN 2.3 g/dL (3.4-5.0); ALBUMIN/GLOBULIN RATIO 0.38 (1.1-2.4); ANION GAP 12.7 (7-21); BILIRUBIN, TOTAL 0.4 ng/dL (0.2-1.0); BUN/CREATININE RATIO 18.98 (6.0-28.6); CALCIUM 8.8 mg/dL (8.5-10.1); CREATININE, SERUM 1.58 mg/dL (0.70-1.30); POTASSIUM 3.7 mmol/L (3.5-5.1); PROTEIN, TOTAL 8.3 g/dL (6.4-8.2)
[2024-03-15 15:59] LABS: EOSINOPHILS, MANUAL DIFF 9; LYMPHOCYTES, MANUAL DIFF 6; MONOCYTES, MANUAL DIFF 12; NEUTROPHILS, MANUAL DIFF 73
[2024-03-15] MEDS ORDERED: methylPREDNISolone SOD SUCC 125 MG/2 ML VIAL IV ONE (16:00)
[2024-03-15] MEDS ORDERED: ALBUTEROL/IPRATROPIUM 3 ML NEB INH ONE (16:00)
[2024-03-15] MEDS ORDERED: FUROSEMIDE 40 MG/4 ML VIAL IV ONE (17:15)
[2024-03-15] MEDS ORDERED: PREDNISONE20 MG PO (19:04)
[2024-03-15 19:15] VITALS: BP 153/65
== END 2024-03-15 19:15 | disposition home or self-care (01) ==
LOC: ED 15:04
PROVIDERS: Emergency Medicine
DX: J84.10 Pulmonary fibrosis, unspecified (principal); I11.0 Hypertensive heart disease with heart failure; I50.9 Heart failure, unspecified; Z87.891 Personal history of nicotine dependence; Z95.0 Presence of cardiac pacemaker; Z96.641 Presence of right artificial hip joint; Z79.899 Other long term (current) drug therapy; Z79.890 Hormone replacement therapy; Z79.02 Long term (current) use of antithrombotics/antiplatelets
CPT/HCPCS: 36415; 71045; 80053; 83880; 84484; 85025; 87502; 94640; J1940; J2919; U0002